=== PATIENT | female | born 1985 | race Caucasian/White ===

== ENCOUNTER → 2021-11-21 | Outpatient (CLI) | payer OTHER, SELFPAY ==
[2021-11-21 17:15] LABS: Amphetamine Urine VISTA NEGATIVE (<1000 ng/mL); Barbiturate Urine VISTA NEGATIVE (< 200 ng/mL); Benzodiazepine Urine VISTA NEGATIVE (< 200 ng/mL); Cocaine Urine VISTA NEGATIVE (< 300 ng/mL); Ecstacy Urine VISTA NEGATIVE (< 500 ng/mL); Methadone Urine VISTA NEGATIVE (< 300 ng/mL); PCP Urine VISTA NEGATIVE (< 25 ng/mL); THC Urine VISTA NEGATIVE (< 50 ng/mL); Vista UDS pH Range 7
[2021-11-25 01:06] LABS: Chlamydia By Nucleic Acid AMP Negative (Negative)
[2021-11-25 09:13] LABS: Gonococcus By Nucleic Acid AMP Negative (Negative)
== END | disposition home or self-care (01) ==
LOC: LABSPEC 16:13
PROVIDERS: Visit Provider Obstetrics & Gynecology
DX: Z34.90 Encounter for supervision of normal pregnancy, unspecified, unspecified trimester (principal)
CPT/HCPCS: 80307; 87086; 87088; 87491; 87591

== ENCOUNTER → 2021-12-06 | Outpatient (CLI) | payer OTHER, SELFPAY ==
[2021-12-06 12:35] LABS: NATERA MAILED SPECIMEN
[2021-12-06 12:40] LABS: Absolute Lymphocyte Count 1.77 X10^3/uL (0.83-4.51); Absolute Neutrophil Count 7.4 X10^3/uL (2.0-7.7); Basophil# 0.02 X10^3/uL; Basophil% 0.2 % (0-1); Eosinophil# 0.08 X10^3/uL; Eosinophils% 0.8 % (0-5); Hematocrit 38.4 % (37-47); Hemoglobin 12.9 g/dL (12.0-15.0); Lymphocyte # 1.77 X10^3/ul (0.83-4.51); Lymphocyte % 17.8 % (19-41); Mean Corp Hgb Conc 33.6 g/dL (32-36); Mean Corpuscular Hgb 30.3 pg (27.0-32.0); Mean Corpuscular Volume 90.1 fL (81-99); Mean Platelet Vol. 11.3 fl (6.2-12.0); Monocyte# 0.66 X10^3/uL; Monocyte% 6.6 % (0-10); NRBC Flagged by Analyzer 0 % (0-5); Neutrophil # 7.38 X10^3/uL (2.7-7.7); Neutrophil % 74.1 % (47-70); Platelet Count 300 K/mm3 (150-450); RBC Distribution Width SD 41.9 fl (35.1-43.9); Red Blood Count 4.26 M/mm3 (4.2-5.4)
[2021-12-06 12:55] LABS: HIV - WCH Non-Reactive (Nonreactive); Hepatitis B Surface Antigen Non-Reactive (Nonreactive); Hepatitis C Antibody Non-Reactive (Nonreactive); Rubella IgG Reactive (Nonreactive); Syphilis Antibodies Non-reactive
== END | disposition home or self-care (01) ==
LOC: PAVLAB 11:24
PROVIDERS: Referring Provider Obstetrics & Gynecology; Visit Provider Obstetrics & Gynecology
DX: Z34.90 Encounter for supervision of normal pregnancy, unspecified, unspecified trimester (principal)
CPT/HCPCS: 36415; 85025; 86703; 86762; 86780; 86803; 86850; 86900; 86901; 87340

== ENCOUNTER → 2022-01-24 | Outpatient (CLI) | payer OTHER, SELFPAY ==
[2022-01-25 12:53] LABS: CMV Acute Antibody IgM < 30.0 AU/mL (0.0-29.9); CMV Antibody IgG < 0.60 U/mL (0.00-0.59); Toxoplasma Gondii IgG < 3.0 IU/mL (0.0-7.1); Toxoplasma Gondii IgM < 3.0 AU/mL (0.0-7.9)
== END | disposition home or self-care (01) ==
LOC: PAVLAB 11:55 → LAB 12:10
PROVIDERS: Visit Provider Obstetrics & Gynecology
DX: O35.8XX0 Maternal care for other (suspected) fetal abnormality and damage, not applicable or unspecified (principal); Z3A.00 Weeks of gestation of pregnancy not specified
CPT/HCPCS: 36415; 86644; 86645; 86777; 86778

== ENCOUNTER 2022-03-21 11:34 | Outpatient (CLI) | payer OTHER, SELFPAY ==
[2022-03-21 11:56] LABS: Absolute Lymphocyte Count 1.68 X10^3/uL (0.83-4.51); Absolute Neutrophil Count 7.8 X10^3/uL (2.0-7.7); Basophil# 0.02 X10^3/uL; Basophil% 0.2 % (0-1); Eosinophil# 0.07 X10^3/uL; Eosinophils% 0.7 % (0-5); Hematocrit 30.3 % (37-47); Hemoglobin 10.4 g/dL (12.0-15.0); Lymphocyte # 1.68 X10^3/ul (0.83-4.51); Lymphocyte % 16.1 % (19-41); Mean Corp Hgb Conc 34.3 g/dL (32-36); Mean Corpuscular Volume 90.4 fL (81-99); Mean Platelet Vol. 10.9 fl (6.2-12.0); Monocyte# 0.85 X10^3/uL; Monocyte% 8.1 % (0-10); NRBC Flagged by Analyzer 0 % (0-5); Neutrophil # 7.79 X10^3/uL (2.7-7.7); Neutrophil % 74.5 % (47-70); Platelet Count 241 K/mm3 (150-450); RBC Distribution Width CV 12.4 % (11.6-14.6); RBC Distribution Width SD 40.5 fl (35.1-43.9); Red Blood Count 3.35 M/mm3 (4.2-5.4); White Blood Count 10.5 K/mm3 (4.4-11.0)
[2022-03-21 12:39] LABS: Glucose Challenge Gest 1H 50g 92 mg/dL (70-140)
== END 2022-03-21 23:59 | disposition home or self-care (01) ==
LOC: PAVLAB 11:37
PROVIDERS: Referring Provider Obstetrics & Gynecology; Visit Provider Obstetrics & Gynecology
DX: Z34.90 Encounter for supervision of normal pregnancy, unspecified, unspecified trimester (principal); Z13.1 Encounter for screening for diabetes mellitus
CPT/HCPCS: 36415; 82950; 85025

== ENCOUNTER → 2022-05-23 | Outpatient (CLI) | payer OTHER, SELFPAY ==
[2022-05-23 11:14] LABS: Absolute Lymphocyte Count 1.93 X10^3/uL (0.83-4.51); Absolute Neutrophil Count 7.6 X10^3/uL (2.0-7.7); Basophil# 0.02 X10^3/uL; Basophil% 0.2 % (0-1); Eosinophil# 0.08 X10^3/uL; Eosinophils% 0.8 % (0-5); Hematocrit 36.1 % (37-47); Lymphocyte # 1.93 X10^3/ul (0.83-4.51); Lymphocyte % 18.1 % (19-41); Mean Corp Hgb Conc 33.2 g/dL (32-36); Mean Corpuscular Hgb 30.2 pg (27.0-32.0); Mean Corpuscular Volume 90.9 fL (81-99); Mean Platelet Vol. 11.6 fl (6.2-12.0); Monocyte# 0.93 X10^3/uL; Monocyte% 8.7 % (0-10); NRBC Flagged by Analyzer 0 % (0-5); Neutrophil # 7.62 X10^3/uL (2.7-7.7); Neutrophil % 71.6 % (47-70); Platelet Count 236 K/mm3 (150-450); RBC Distribution Width CV 13.5 % (11.6-14.6); RBC Distribution Width SD 45.3 fl (35.1-43.9); Red Blood Count 3.97 M/mm3 (4.2-5.4); White Blood Count 10.6 K/mm3 (4.4-11.0)
== END | disposition home or self-care (01) ==
PROVIDERS: Referring Provider Obstetrics & Gynecology; Visit Provider Obstetrics & Gynecology
DX: O99.019 Anemia complicating pregnancy, unspecified trimester (principal)
CPT/HCPCS: 36415; 85025; 87081

== ENCOUNTER 2022-06-17 00:40 | Inpatient (IN) | payer OTHER, SELFPAY ==
[2022-06-17] VITALS (13 sets, daily range): BP systolic 95–149; BP diastolic 55–83; PULSE 54–69; RESP 16–17; TEMP 36.1–37.3; BMI 28.6
[2022-06-17 01:12] LABS: Absolute Lymphocyte Count 2.93 X10^3/uL (0.83-4.51); Absolute Neutrophil Count 6.9 X10^3/uL (2.0-7.7); Basophil# 0.02 X10^3/uL; Basophil% 0.2 % (0-1); Eosinophil# 0.08 X10^3/uL; Eosinophils% 0.7 % (0-5); Hematocrit 36.9 % (37-47); Hemoglobin 12.3 g/dL (12.0-15.0); Lymphocyte # 2.93 X10^3/ul (0.83-4.51); Lymphocyte % 26.8 % (19-41); Mean Corp Hgb Conc 33.3 g/dL (32-36); Mean Corpuscular Hgb 30.5 pg (27.0-32.0); Mean Corpuscular Volume 91.6 fL (81-99); Mean Platelet Vol. 12.9 fl (6.2-12.0); Monocyte# 1.01 X10^3/uL; Monocyte% 9.2 % (0-10); NRBC Flagged by Analyzer 0 % (0-5); Neutrophil # 6.85 X10^3/uL (2.7-7.7); Neutrophil % 62.7 % (47-70); Platelet Count 206 K/mm3 (150-450); RBC Distribution Width CV 13.4 % (11.6-14.6); RBC Distribution Width SD 45.1 fl (35.1-43.9); Red Blood Count 4.03 M/mm3 (4.2-5.4); White Blood Count 10.9 K/mm3 (4.4-11.0)
[2022-06-17] MEDS: Oxytocin 10 UNITS/ML Vial IM (01:27)
--- NOTE | 2022-06-17 01:38 | HP.PCM.OB_ITS ---
HPI - General General Date of Admission: 06/17/22 HPI Narrative BRIGID VELASQUEZ, is a 37 F who presents at 40+2 with regular contractions. Presented to the unit with cervical exam rupture of membranes with clear fluid. 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 -anemia treated with slow release iron and resolved by 3rd trimester -05/29 nl growth EFW 3167gms 51% Maternal Data Information JAZMIN Calculator Estimated Delivery Date Method Current WG Current Estimate 06/15/22 LMP (Certain) 40w 2d Other Estimates 06/15/22 Ultrasound #1 40w 2d Final JAZMIN: 06/15/22 Final JAZMIN Source: LMP PFSH PFSH Home Medications docosahexaenoic acid 200 mg capsule ( DHA) mg PO 11/21/21 [History Last Taken Unknown] Allergy/AdvReac Type Severity Reaction Status Date / Time No Known Allergies Allergy Verified 06/13/22 09:07 Social History adopted: No household members: spouse and children housing: house number of children: 1 current occupational status: employed 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 current occupational exposures/hazards: No pets and animals: Yes (2) pets and animals: dog(s) history of recent travel: Yes ([facility] last week, [place] October 23) out of state: Yes out of country: No sexually active: Yes Smoking Status: Never smoker second hand exposure: No alcohol intake: former details: social 1-2 per month substance use type: does not use well-balanced diet: about half the time caffeine: No eating out: rarely or never during the past year weight has: remained stable what type of physical activity do you participate in: walking frequency: 1-2 times per week duration: 15-30 minutes/day lexx/religious: Tenriism seatbelt use: always do you feel safe at home: Yes 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 Date Name GA/Weeks Outcome Route Bth Weight Gen Labor Lgth Anesthesia Del Locatn Provider FOB Unknown 01/08/20 John 40 live - full term 7# 10oz M veronica 12 hours none [facility] [place], [place] Dr. Ibeth Carlos Visit Details Expected Delivery Route/Plan Labor Preferences- CB/BF classes: [] labor support person: labor intervention preferences: hypno , birthing tub pain management options preferred: no epidural cut cord/dad catch: [] : plans to breast feed PP control planned: [] discussed possible routes of delivery and associated risks: [] special requests: [] Plans Covid status: vaccinated Flu vaccine: [] Tdap vaccine: [] Rhogam: [] LARC form signed: [] Problem list reviewed and updated with the most current plan of care details and appropriate orders placed. Relevant counseling for the gestational age provided. Continue routine care and follow up unless otherwise noted in visit notes/problem list details OB Flowsheet Initial Weight: Not Recorded Date -?-?-?-?-?-?-?-?-?-?-?-?- EGA Weight BP Urine Prot -?-?-?-?-?-?-?-?-?-?-?-?- Glucose FHR FuHt Pres Dilation -?-?--?-?-?-?-?-?-?-?-?-?- Effaced St Visit Note 11/21/21 -?-?-?-?-?-?-?-?-?-?-?-?- 10w 4d 132 lb 4 oz 100/60 -?-?-?-?-?-?-?-?-?-?-?-?- 178 -?-?-?-?-?-?-?-?-?-?-?-?- JV- CRL consiste nt with LMP. 12/20/21 -?-?-?-?-?-?-?-?-?-?-?-?- 14w 5d 135 lb 8 oz 100/62 Nega tive -?-?-?-?-?-?-?-?-?-?-?-?- Negative 150 -?-?-?-?-?-?-?-?-?-?-?-?- SM- no vb lof cr amping 01/24/22 -?-?-?-?-?-?-?-?-?-?-?-?- 19w 5d 146 lb 117/74 Negative -?-?-?-?-?-?-?-?-?-?-?-?- Negative 147 -?-?-?-?-?-?-?-?-?-?-?-?- JFelix- pt had her a natomy scan and results are not in yet but she is upset about finding of echogenic bowel and dilated stomach. torch titers ordered. (CMV and TOxo) 02/21/22 -?-?-?-?-?-?-?-?-?-?-?-?- 23w 5d 150 lb 6 oz 109/72 -?-?-?-?-?-?-?-?-?-?-?-?- 135 -?-?-?-?-?-?-?-?-?-?-?-?- JV- echogenic fo ci's resolved but has a 2 vessel cord. will have growth follow ups every month. no mention of NSTs or testing at this time. h 03/21/22 -?-?-?-?-?-?-?-?-?-?-?-?- 27w 5d 158 lb 8 oz 94/56 Nega tive -?-?-?-?-?-?-?-?-?-?-?-?- Negative 142 26 -?-?-?-?-?-?-?-?-?-?-?-?- JV- pt has compl aint of vaginal prolpase and a spot of blood when wiping. She has a small rectocele present. pt reassured. has scan on 03/24 for follow up. JV- pt has complaint of vagi nal prolpase and a spot of blood when wiping. She has a small rectocele present. pt reassured. has scan on 03/24 for follow up. GCT is pending. TDAP next visit. 04/07/22 -?-?-?-?-?-?-?-?-?-?-?-?- 30w 1d 161 lb 6 oz 98/64 Nega tive -?-?-?-?-?-?-?-?-?-?-?-?- Negative 143 29 -?-?-?-?-?-?-?-?-?-?-?-?- MH-No VB, LOF. G ood FM. Has Growth US scheduled. 04/24/22 -?-?-?-?-?-?-?-?-?-?-?-?- 32w 4d 163 lb 8 oz 113/74 Nega tive -?-?-?-?-?-?-?-?-?-?-?-?- Negative 156 31.5 -?-?-?-?-?-?-?-?-?-?-?-?- LC-no vb/lof/vb. good fm. growth scan for thursday. 05/09/22 -?-?-?-?-?-?-?-?-?-?-?-?- 34w 5d 168 lb 6 oz 103/71 Nega tive -?-?-?-?-?-?-?-?-?-?-?-?- Negative 132 32 -?-?-?-?-?-?-?-?-?-?-?-?- JV- normal growt h on 05/02 at 47th% and normal BUSTER. rpt in 4 weeks. 05/23/22 -?-?-?-?-?-?-?-?-?-?-?-?- 36w 5d 169 lb 4 oz 126/74 Nega tive -?-?-?-?-?-?-?-?-?-?-?-?- Negative 130 -?-?-?-?-?-?-?-?-?-?-?-?- SM- no vb lof go od fm no regular ctx 05/30/22 -?-?-?-?-?-?-?-?-?-?-?-?- 37w 5d 171 lb 2 oz 112/64 Nega tive -?-?-?-?-?-?-?-?-?-?-?-?- Negative 140 120 -?-?-?-?-?-?-?-?-?-?-?-?- JV- NST reactive . No complaints today. no contractions. 06/06/22 -?-?-?-?-?-?-?-?-?-?-?-?- 38w 5d 171 lb 104/80 -?-?-?-?-?-?-?-?-?-?-?-?- 130 -?-?-?-?-?-?-?-?-?-?-?-?- SM- NST reactive , no vb lof good fm no regular ctx 06/13/22 -?-?-?-?-?-?-?-?-?-?-?-?- 39w 5d 172 lb 4 oz 109/73 Nega tive -?-?-?-?-?-?-?-?-?-?-?-?- Negative 130 -?-?-?-?-?-?-?-?-?-?-?-?- JV- reactive nst and declines induction and pelvic exam at this time. NST FHR Rate Baby A Baseline: 125, loss of pear picker Variability:: Moderate Accelerations:: 15 x 15 Decelerations:: Early FHR Category:: Category I Uterine Activity:: q1-2 minutes ROS Cardiovascular Cardiovascular: Denies abdominal pain, chest pain, diaphoresis or dyspnea Respiratory/Chest Respiratory/Chest: Denies change in mental status, chest congestion, chest tightness, cough, shortness of breath at rest, shortness of breath with exertion, breast mass, breast pain, breast skin changes, breast swelling, change in breast shape or nipple discharge Genitourinary Genitourinary: Reports change in urinary stream Musculoskeletal Musculoskeletal: Reports none Integumentary Integumentary: Reports none Neurologic Neurologic: Reports none Psychiatric Psychiatric: Reports none Endocrine Endocrinology: Reports none Hematologic/Lymphatic Hematologic/Lymphatic: Reports none Allergic/Immunologic Allergic/Immunologic: Reports none Vital Signs Vital Signs Vital Signs: Weight Weight: 172 lb 3.2 oz Body Mass Index (BMI) 28.6 Physical Exam Const alert, oriented x3 and no apparent distress General Appearance: cooperative, comfortable and well kempt Orientation / Consciousness: awake and oriented to person Exam Limitations: no limitations HEENT normocephalic Neck full ROM Chest inspection of chest normal Resp normal respiratory effort, normal air movement and no retractions Effort and Inspection: able to speak in complete sentences and symmetric chest movement Cardio regular rate Peripheral Pulses: pulses 2+ throughout GI normal to inspection, nondistended, normoactive bowel sounds Inspection: gravid no CVA tenderness and appearance of the vagina normal External Female Exam: normal appearance of the urethra; Negative for external lesion OB / External & Speculum: external exam normal Manual OB Exam: estimated gestational size appropriate and presentation cephalic Uterus Palpation: Negative for uterus tender Extremity normal to inspection Skin no rashes or lesions noted Neuro deep tendon reflexes 2+ bilaterally and gait normal Motor Exam: strength 5/5 throughout and clonus absent Psych Activity / Motor Behavior: appropriate eye contact Speech: normal speech Labs Labs Labs: Blood Type AB POSITIVE Antibody Screen NEGATIVE Hct 36.9 % (37-47) L Hgb 12.3 g/dL (12.0-15.0) Pap Smear Negative Syphilis Total Ab Non-reactive Rubella IgG Antibody Reactive (Nonreactive) Hep Bs Antigen Non-Reactive (Nonreactive) Chlamydia DNA (SINA) Negative (Negative) Neisseria gonorrhoeae DNA (SINA) Negative (Negative) HIV 1&2 Antibody Non-Reactive (Nonreactive) Glucose 1 Hr 50 gm 92 mg/dL (70-140) Assessment & Plan (1) Two vessel umbilical cord: COMMENT: monthly growth scans and weekly nsts at 36 weeks, 05/29 nl growth EFW 3167gms 51% (2) Spontaneous onset of labor: COMMENT: Patient presents IAL at term Pain management: hypnobirthing GBS negative. Management of any complications: 2 vessel cord I have reviewed the [facility] and made any clinically relevant updates. Dr. Mcconnell updated on POC, admission and exam. co-management for 2 vessel cord
--- NOTE | 2022-06-17 01:47 | EX.PCM.OBRPT ---
Assessment & Plan (1) (spontaneous vaginal delivery): COMMENT: IAL 40+2, boy:ALBERT Brown (2) Two vessel umbilical cord: COMMENT: monthly growth scans and weekly nsts at 36 weeks, 05/29 nl growth EFW 3167gms 51% PLAN: Plan s/p PPD # 0 1. routine post delivery care 2. breast feeding- support given 3. rh positive 4. rubella immune Maternal Data Information JAZMIN Calculator Estimated Delivery Date Method Current WG Current Estimate 06/15/22 LMP (Certain) 40w 2d Other Estimates 06/15/22 Ultrasound #1 40w 2d Vaginal Delivery Maternal Presentation Maternal Presentation: Active Labor and Spontaneous Rupture of Membranes Operative Information Date of Procedure: 06/17/22 Pre-Operative Diagnosis: Post-Operative Diagnosis: Surgery / Procedure Performed: Spontaneous Vaginal Delivery Type of Anesthesia: None Estimated Blood Loss: 150 Time of Delivery: 00:13 Findings Description of Procedure: Patient began pushing and delivered the head in the OA to STEPHANIE presentation. The head was delivered atraumatically and a tight nuchal cord ?1 was identified. The anterior and posterior shoulders delivered without complication followed by the rest of the and the infant was somersaulted over nuchal cord, cord brought over head and infant was then placed on the maternal abdomen. Delayed cord clamping was employed for approximately 6minutes 30 seconds. Cord was clamped and cut and gentle traction was applied to the cord and the placenta delivered spontaneously immediately following it was noted to be intact with three-vessel cord. The perineum and vagina were inspected and noted to have no laceration. EBL was 150cc. Patient and infant tolerated delivery well. Presentation: STEPHANIE Amniotic Membrane Rupture Type: Spontaneous Time of Membrane Rupture: 54 Amniotic Fluid Description: Clear Placental Delivery Description: Spontaneous Placenta Disposition: [facility] Cord Vessel Description: 2 Vessels Cord Entanglement: Around neck x 1, tight Nuchal Cord Compression: Without compression Infant A Gender: Male (1 minute): 7 (5 minute): 9 Multi Select Codes Addendum Addendum: ATTN LORE: CNM DELIVERY
--- NOTE | 2022-06-17 01:52 | DCINST_ITS ---
Discharge Instructions Diet Discharge Diet: No restrictions Activity Discharge Activity: May Not Drive and May Shower May resume sexual activity in: 6 weeks Weight Bearing Status: Full weight bearing Dressing / Incision Call your doctor if your incision/area has: Sudden Increased Bleeding, Increased Pain/ Swelling and Foul Smelling Discharge Call your doctor if you observe: Fever of 101 or Higher, Numbness or Tingling, Change in Color, Inability to urinate, Inability to have a bowel movement, Using more than 1 pad per hour, Shortness of breath, Dizziness, Fainting spells, Chest pain, Calf discomfort and Uncontrolled pain Follow Up Care Please Follow Up With: Trish Murray CNM When: 6 weeks , please call office to make an appointment. Congratulations on the of your baby juan miguel LEIJA! Test Results: Test results from this visit will be discussed in further detail at your follow- up appointment, if applicable. Discharge Plan Admission Admit Date/Time: 06/17/22 00:40 Attending Provider: Trish Murray Primary Care Provider: Care Physician,Clair Primary Discharge Orders/Prescriptions Prescriptions: No Action DHA 200 mg capsule PO Referrals / Follow Up: Care Physician,No Primary [Primary Care Provider] -
[2022-06-17] MEDS: Lactated Ringers 1,000 ML 50 ML IV (03:29)
[2022-06-18 01:47] VITALS: BP 102/60; PULSE 70; RESP 16; TEMP 36.6
[2022-06-18 09:20] VITALS: BP 100/57; PULSE 68; RESP 16; TEMP 36.8
--- NOTE | 2022-06-18 10:09 | PCM.PN.OB ---
Subjective Subjective Patient doing well without complaints. Tolerating PO. Ambulating and voiding without difficulty. Feeding well. Denies chest pain, shortness of breath, calf pain/swelling, fevers, chills, lightheadedness. Objective Data Objective Data Vital Signs: Vital Signs Temp Pulse Resp BP O2 Del Method 98.3 F 68 16 100/57 L Room Air 06/18/22 09:20 06/18/22 09:20 06/18/22 09:20 06/18/22 09:20 06/17/22 20:10 Oxygen Delivery Method Room Air Weight: 172 lb 3.2 oz Body Mass Index (BMI) 28.6 Intake & Output: Intake and Output for Last 24 Hours 06/16/22 06/17/22 06/18/22 23:59 23:59 23:59 Output Total 850 / 850 Balance -850 / -850 Lab / Micro Data Result Diagrams: 06/17/22 00:52 Physical Exam Const alert, oriented x3 and no apparent distress HEENT normocephalic Neck full ROM Lymph Lymphatic: no lymphadenopathy noted Chest inspection of chest normal Resp normal respiratory effort, normal air movement and no retractions Cardio regular rate and regular rhythm GI GI Narrative: fundus firm at 1 below u. mild lochia. no clots Extremity normal to inspection and full ROM Skin no rashes or lesions noted Neuro oriented x3 Psych mental status grossly normal Assessment & Plan (1) (spontaneous vaginal delivery): COMMENT: IAL 40+2, boy:ALBERT Brown PLAN: s/p PPD # 1 1. routine post delivery care 2. breast feeding- support given 3. rh positive 4. rubella immune 5. d/c home today
== END 2022-06-18 12:12 | disposition home or self-care (01) | DRG 807 ==
LOC: WPOUT 00:43 → WP 00:43
PROVIDERS: Admitting Provider Registered Nurse; Visit Provider Registered Nurse
DX: O69.1XX0 Labor and delivery complicated by cord around neck, with compression, not applicable or unspecified (principal); Z37.0 Single live birth; Z3A.40 40 weeks gestation of pregnancy
CPT/HCPCS: 59025; 59050; 85025; 86850; 86870; 86900; 86901; 99221; J7120; G0378

== ENCOUNTER → 2023-10-28 | Outpatient (CLI) | payer OTHER, SELFPAY ==
[2023-11-03 11:09] LABS: HPV APTIMA, High Risk Negative (Negative)
== END | disposition home or self-care (01) ==
PROVIDERS: Referring Provider Obstetrics & Gynecology; Visit Provider Obstetrics & Gynecology
DX: Z12.4 Encounter for screening for malignant neoplasm of cervix (principal)
CPT/HCPCS: 87624; 88175; G0145

== ENCOUNTER → 2024-02-24 | Outpatient (CLI) | payer OTHER, SELFPAY ==
--- OUTSIDE RECORDS SUMMARY | 2024-02-24 09:49 | XMS RPT_ITS | CCD ---
Author Organization [facility] Inform ion Partnership [facility] Care Team Providers Care Grade Checker Name Role Phone Unavailable Primary Care Provider Tala Abdi MD Primary Care Provider NICOLETC Attending Unavailable TALA KNOX Referring Unavailable TALA KNOX Primary Care Unavailable Pcp, Clair Primary Care Provider UnavailKOBE Mcallister Attending Unavailable LINDA MAYORGA Referring Unavailabl e NO PRIMARY CARE, Primary Care Unavailable NO PRIMARY CARE, Primary Care Unavailable LINDA MAYORGA Referring Unavailabl e MAYANK ARROYO Attending Unavailable LINDA MAYORGA Referring Unavailabl MAYANK Johnson Attending Unavailable NO PRIMARY CARE, Primary Care Unavailable KOBE CABAN Attending Unavailable LINDA MAYORGA Referring Unavailabl e NO PRIMARY CARE, Primary Care Unavailable LINDA MAYORGA Referring Unavailabl LINDA Brooks Attending Unavailbraxton roque NO PRIMARY CARE, Primary Care Unavailable LINDA MAYORGA Referring Unavailabl e JULIANNA HINES Attending Unavailable NO PRIMARY CAREMD Primary Care Unavailable Jairo Romero MD Primary Care Provider JAIRO ROMERO Attending Unavailab KWABENA Grande Primary Care Unavailable JAIRO ROMERO Primary Care Unavailab JAIRO Maguire Referring Unavailab JAIRO Maguire Primary Care Unavailab JAIRO Maguire Primary Care Unavailab JAIRO Maguire Attending Unavailab JAIRO Maguire Primary Care Unavailab JAIRO Maguire Referring Unavailab le Medications Current Medications Medication Drug Class(es) Dates Sig (Normalized) Sig (Original) ciprofloxacin 3 mg/ml ophthalmic solution (1 source) Quinolone Antimicrobial Start: 08-23-2023 End: 08-30-2023 take 1-2 drop(s) into the eye(s) every two hours, then take 1-2 drop(s) into the eye(s) every four hours ciprofloxacin HCl (CILOXAN) 0.3 % ophthalmic solution Use 1-2 drops inside both lower eyelid(s) every 2 hours while awake for 2 days, then 1-2 drops every 4 hours for next 5 days. 10 mL 0 08/23/2023 08/30/2023 Active Comment on above: Use 1-2 drops inside both lower eyelid(s) every 2 hours while awake for 2 days, then 1-2 drops every 4 hours for next 5 days. fluocinolone acetonide 0.1 mg/ml / hydroquinone 40 mg/ml / tretinoin 0.5 mg/ml topical cream (1 source) Corticosteroid, Retinoid, Melanin Synthesis Inhibitor Start: 12-24-2020 End: 01-23-2021 fluocinolone-hydro q.-tretinoin (Tri-Polly) 0.01-4-0.05 % Crea Apply 1 application topically nightly For 2-3 months . 30 g 1 12/24/2020 01/23/2021 Active Completed/Discontinued Medications Medication Drug Class(es) Dates Sig (Normalized) Sig (Original) atorvastatin 40 mg oral tablet (1 source) HMG-CoA Reductase Inhibitor Start: 03-20-2023 End: 06-29-2023 take 1 tablet by mouth once daily at bedtime for hyperlipidemia atorvastatin (LIPITOR) 40 mg tablet Take 1 tablet by mouth daily at bedtime. For cholesterol. 90 tablet 0 03/20/2023 06/29/2023 Discontinued Comment on above: Take 1 tablet by adam th daily at bedtime. For cholesterol. prental multivitamin ( VITAMIN) 27 mg iron- 800 mcg tablet (4 sources) prental multivitamin ( VITAMIN) 27 mg iron- 800 mcg tablet q 24 HR. 0 Active Comment on above: q 24 HR. Problems Active Problems Problem Classification Problem Date Documented Date Episodic/Chronic Disorders of lipid metabolism (1 source) Pure hypercholesterolemia, unspecified; Translations: [Pure hypercholesterolemia] Onset: 03-20-2023 Chronic Headache; including migraine (1 source) Headache; Translations: [Headache, unspecified headache type] Episodic Inflammation; infection of eye (except that caused by tuberculosis or sexually transmitteddisease) (1 source) Conjunctivitis of right eye; Translations: [Unspecified conjunctivitis] 08-23-2023 Episodic Other and unspecified benign neoplasm (1 source) Dermal cellular nevus ; Translations: [Other benign neoplasm of skin of other parts of face] Episodic Other and unspecified benign neoplasm (1 source) Senile angioma; Translations: [Hemangioma of skin and subcutaneous tissue] Episodic Other skin disorders (3 sources) Chloasma; Translations: [Chloasma] Episodic Other upper respiratory infections (1 source) Acute upper respiratory infection; Translations: [Acute upper respiratory infection, unspecified] 08-23-2023 Episodic Viral infection (1 source) Viral disease; Translations: [Viral infection, unspecified] Episodic Past or Other Problems Problem Classification Problem Date Documented Da te Episodic/Chronic Administrative/social admission (3 sources) Patient encounter status; Translations: [Persons encountering health services in other specified circumstances] Onset: 03-13-2023 12-26-2022 Episodic Immunizations and screening for infectious disease (1 source) Encounter for immunization; Translations: [Encounter for immunization] Onset: 03-20-2023 Episodic Other skin disorders (1 source) Chloasma; Translations: [Melasma] Onset: 03-20-2023 Episodic Other skin disorders (1 source) Xerosis cutis; Translations: [Dry skin dermatitis] Onset: 03-20-2023 Episodic Results Test Name Value Interpretation Reference Range Facility [facility] 08-23-2023 CN Office Visit ([facility]) ANNIA BELLA ([id number]) 1985 F Date Time Provider Department 08/23/23 10:00 AM DULCE MARIA HOUSER WSTR During your visit today, we recorded the following information about you: Temperature Pulse Respiration Blood pressure 97.2 degrees 64/minute 18/minute 100/65 Weight Last Period 61 kg 08/23/23 Dulce Maria Houser APRN.CNP 08/23/2023 10:35 AM Signed This note was created using NoteWriter. Subjective Annia Bella is a 38 year old female. 38 year old female with no PMH presents for eye complaints. Acute onset this morning. Right eye States she woke up with discomfort +crusted +redness Denies loss of vision. Denies blurred vision ?? Feeling of FB maybe a couple times she had that feeling. Denies presently She does have URI sx of cough and congestion. Her child was recently treated for conjunctivitis. Wears corrective lens and contacts. Last eye appt Apr 2022 The history is provided by the patient. No speech and language assistant was used. Eye Problem This is a new problem. The current episode started today. The problem occurs constantly. The problem has been unchanged. Associated symptoms include congestion and coughing. Pertinent negatives include no abdominal pain, anorexia, arthralgias, change in bowel habit, chest pain, chills, diaphoresis, fatigue, fever, headaches, joint swelling, myalgias, nausea, neck pain, numbness, rash, sore throat, swollen glands, urinary symptoms, vertigo, visual change, vomiting or weakness. Nothing aggravates the symptoms. She has tried nothing for the symptoms. The treatment provided no relief. PAST MEDICAL HISTORY Diagnosis Date Absence of menstruation Amenorrhea prior to 2019 Hyperlipemia PAST SURGICAL HISTORY Procedure Laterality Date NONE ALLERGIES Patient has no known allergies. MEDICATIONS prental multivitamin ( VITAMIN) 27 mg iron- 800 mcg tablet q 24 HR. ciprofloxacin HCl (CILOXAN) 0.3 % ophthalmic solution Use 1-2 drops inside both lower eyelid(s) every 2 hours while awake for 2 days, then 1-2 drops every 4 hours for next 5 days. FAMILY HISTORY Problem Relation Age of Onset other (Gallbladder cancer) Mother 68 other (als) Father 66 Hyperlipidemia Father Colon Cancer Maternal Grandmother Diabetes Maternal Grandfather Hypertension Paternal Grandfather Diabetes Paternal Grandfather Type 2 Heart Attack Paternal Grandfather No Known Problems Son No Known Problems Son Diabetes Maternal Aunt Celiac Disease Maternal Aunt Social History Tobacco Use Smoking status: Never Smokeless tobacco: Never Vaping Use Vaping Use: Never used Substance Use Topics Alcohol use: Yes Comment: 1-2 drinks per month Drug use: Never Review of Systems Constitutional: Negative for chills, diaphoresis, fatigue and fever. HENT: Positive for congestion and rhinorrhea. Negative for ear pain, postnasal drip, sinus pressure, sinus pain and sore throat. Eyes: Positive for photophobia, pain, discharge, redness and itching. Negative for visual disturbance. Respiratory: Positive for cough. Negative for apnea, choking and chest tightness. Cardiovascular: Negative for chest pain. Gastrointestinal: Negative for abdominal pain, anorexia, change in bowel habit, nausea and vomiting. Musculoskeletal: Negative for arthralgias, joint swelling, myalgias and neck pain. Skin: Negative for color change, pallor and rash. Allergic/Immunologic : Negative for environmental allergies, food allergies and immunocompromised state. Neurological: Negative for dizziness, vertigo, facial asymmetry, weakness, light-headedness, numbness and headaches. Hematological: Negative for adenopathy. Does not bruise/bleed easily. Psychiatric/Behavior al: Negative for agitation and behavioral problems. Objective BP 100/65 Pulse 64 Temp 36.2 ?C (97.2 ?F) Resp 18 Wt 61 kg (134 lb 7.7 oz) LMP 08/23/2023 (Approximate) SpO2 100% Yes BMI 23.08 kg/m? Physical Exam Vitals and nursing note reviewed. Constitutional: General: She is not in acute distress. Appearance: Normal appearance. She is normal weight. She is not ill-appearing, toxic-appearing or diaphoretic. HENT: Head: Normocephalic and atraumatic. Right Ear: Ear canal and external ear normal. Left Ear: Ear canal and external ear normal. Nose: Rhinorrhea present. No congestion. Mouth/Throat: Mouth: Mucous membranes are moist. Pharynx: No oropharyngeal exudate or posterior oropharyngeal erythema. Eyes: General: Right eye: No discharge. Left eye: No discharge. Extraocular Movements: Extraocular movements intact. Pupils: Pupils are equal, round, and reactive to light. Comments: Vision grossly intact OD injected +marginal eyelid debris Tetracaine and Fluorescein with no uptake. NO FB noted. EOM intact Cardiovascular: Rate (more content not included)... Normal [facility] ([id number]) 1985 F Date Time Provider Department 06/29/23 JAIRO ROMERO During your visit today, we recorded the following information about you: Alice Villarreal LPN 06/29/2023 4:18 PM Signed ----- Message from Jairo Romero MD sent at 06/29/2023 2:37 PM EST ----- Cholesterol level improving on Lipitor 40 mg daily, but is still high. If she is tolerating 40 mg dosage without side effects, I would recommend increasing dosage to 80 mg daily. If agreeable, will send rx to requested pharmacy. Alice Villarreal LPN 06/29/2023 4:22 PM Signed Pt given results below. Pt reports she never started Lipitor. She is watching what she eats. She wants to continue what she is doing. BELEN Palacio Christopher B, MD 06/29/2023 4:31 PM Signed Her LDL is down below 190 with improved diet. I will remove the lipitor from her med list and would have her continue with diet as requested. Alice Villarreal LPN 06/29/2023 4:53 PM Signed Attempted to reach pt by phone without success. Mailbox is full. BELEN Palacio Michelle, LPN 06/30/2023 8:45 AM Signed Patient telephoned, no answer. Message left to call office back for update. BELEN Trejo Laurie Lynn, LPN 07/06/2023 2:05 PM Signed Detailed VM left on pt's identified voicemail of information below. Alice Villarreal LPN Allergies As of Date: 06/29/2023 (No Known Allergies) Date Reviewed: 03/20/2023 Reviewed by: Lexy Collazo LPN - Fully Assessed Reason for Visit: Results [95] Prescriptions as of 07/06/2023 - prental multivitamin ( VITAMIN) 27 mg iron- 800 mcg tablet q 24 HR. Problem List As Of Date: 06/29/2023 (None) Medications Discontinued During This Encounter Prescriptions - atorvastatin (LIPITOR) 40 mg tablet (Discontinued) Take 1 tablet by mouth daily at bedtime. For cholesterol. Encounter Status:Closed by ALICE VILLARREAL on 07/06/23 Normal [facility] Lipid 1996 panelon Cholesterol [Mass/Vol] 221 mg/dL High <200 [facility] Comment on above: Order Comment: Jacky armendariz Type: BLOOD SPECIMEN Ordering Facility: [facility] Address: [address] [place] [address] Result Comment: <200 mg/dL, Desirable 200-239 mg/dL, Borderline high >239 mg/dL, High Performed By: #### 2 4331-1 #### [facility] CLIA [id number] [address] [place] [address] [place] Cholesterol in HDL [Mass/Vol] 63 mg/dL Normal >39 [facility] Comment on above: Order Comment: Jacky armendariz Type: BLOOD SPECIMEN Ordering Facility: [facility] Address: [address] [place] [address] Result Comment: 40-5 9 mg/dL, Acceptable >59 mg/dL, High: Negative risk factor for coronary heart disease <40 mg/dL, Low: Positive risk factor for coronary heart disease Performed By: #### 2 4331-1 #### [facility] CLIA [id number] [address] [place] [address] [place] Cholesterol in LDL [Mass/Vol] 150 mg/dL High <100 [facility] Comment on above: Order Comment: Jacky armendariz Type: BLOOD SPECIMEN Ordering Facility: [facility] Address: [address] [place] [address] Result Comment: <100 mg/dL, Optimal 100-129 mg/dL, Near optimal/above optimal 130-159 mg/dL, Borderline high 160-189 mg/dL, High >189 mg/dL, Very high Secondary prevention optimal LDL Cholesterol levels are recommended to be < 70 mg/dL Performed By: #### 2 4331-1 #### [facility] CLIA [id number] [address] [place] [address] [place] Cholesterol in LDL/Cholesterol in HDL [Mass ratio] 2.38 {ratio} Normal <2.[address] [facility] Comment on above: Order Comment: Jacky armendariz Type: BLOOD SPECIMEN Ordering Facility: [facility] Address: [address] [place] [address] Result Comment: Refe rence: 1. National Cholesterol Education Program ATP III Guideline At-A-Glance Quick Desk Reference: National Heart, Lung, and Blood [place]. National Institutes of Health. 2001: NIH Publication No. 01-3305. 2. An International Atherosclerosis Society position paper: global recommendations for the management of dyslipidemia: executive summary, Atherosclerosis. 2014: 232(2):410-413. Performed By: #### 2 4331-1 #### [facility] CLIA [id number] [address] [place] [address] [place] Cholesterol in VLDL [Mass/Vol] 8 mg/dL Normal <30 [facility] Comment on above: Order Comment: Jacky armendariz Type: BLOOD SPECIMEN Ordering Facility: [facility] Address: [address] [place] [address] Performed By: #### 2 4331-1 #### [facility] CLIA [id number] [address] [place] [address] [place] Cholesterol non HDL [Mass/Vol] 158 mg/dL High <130 [facility] Comment on above: Order Comment: Jacky armendariz Type: BLOOD SPECIMEN Ordering Facility: [facility] Address: [address] [place] [address] Result Comment: <130 mg/dL, Optimal 130-159 mg/dL, Near optimal/above optimal 160-189 mg/dL, Borderline high 190-219 mg/dL, High >219 mg/dL, Very high Secondary prevention optimal non HDL Cholesterol levels are recommended to be <100 mg/dL Performed By: #### 2 4331-1 #### [facility] CLIA [id number] [address] [place] [address] [place] Cholesterol.total/C holesterol in HDL [Mass ratio] 3.51 {ratio} Normal <5.10 [facility] Comment on above: Order Comment: Speci men Type: BLOOD SPECIMEN Ordering Facility: [facility] Address: [address] [place] [address] Performed By: #### 2 4331-1 #### [facility] CLIA [id number] [address] [place] [address] [place] FASTING TIME 13 hrs Normal [facility] Comment on above: Order Comment: Speci men Type: BLOOD SPECIMEN Ordering Facility: [facility] Address: [address] [place] [address] Performed By: #### 2 4331-1 #### [facility] CLIA [id number] [address] [place] [address] [place] Triglyceride [Mass/Vol] 40 mg/dL Normal <150 [facility] Comment on above: Order Comment: Speci men Type: BLOOD SPECIMEN Ordering Facility: [facility] Address: [address] [place] [address] Result Comment: <150 mg/dL, Normal 150-199 mg/dL, Borderline high 200-499 mg/dL, High >499 mg/dL, Very high Performed By: #### 2 4331-1 #### [facility] CLIA [id number] [address] [place] [address] [place] CNOVon 03-20-2023 CNOV Office Visit ([facility]) ANNIA BELLA ([id number]) 1985 F Date Time Provider Department 03/20/23 8:00 AM JAIRO ROMERO During your visit today, we recorded the following information about you: Pulse Respiration Blood pressure Weight 64/minute 16/minute 106/66 61.2 kg Last Period 12/12/22 Jairo Romero MD 03/20/2023 7:41 PM Signed Chief Complaint Patient presents with: Physical HPI Annia Bella is a 37 year old female who presents here today for Above Complaints. Patient without complaints. Total cholesterol and LDL up from last check 2 years ago with LDL >190. States that she has not been following low cholesterol diet. Does have family history of high cholesterol with father. Last pap smear and HPV unknown, but believes was wihtin the last [address] Small for 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 with appointment in July. 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 Refusing COVID vaccine today. Past medical history, appointments, medications, allergies reviewed. Previous Medical History PAST MEDICAL HISTORY Diagnosis Date Absence of menstruation Amenorrhea prior to 2019 Hyperlipemia Previous Surgical History PAST SURGICAL HISTORY Procedure Laterality Date NONE Family History FAMILY HISTORY Problem Relation Age of Onset other (Gallbladder cancer) Mother 68 other (als) Father 66 Colon Cancer Maternal Grandmother Diabetes Maternal Grandfather Hypertension Paternal Grandfather Diabetes Paternal Grandfather Type 2 Heart Attack Paternal Grandfather No Known Problems Son No Known Problems Son Diabetes Maternal Aunt Celiac Disease Maternal Aunt Patient Allergies ALLERGIES No Known Allergies Current Medications Current Outpatient Medications on File Prior to Visit Medication Sig prental multivitamin ( VITAMIN) 27 mg iron- 800 mcg tablet q 24 HR. No current facility-administere d medications on file prior to visit. Social History Social History Tobacco Use Smoking status: Never Smokeless tobacco: Never Substance Use Topics Alcohol use: Yes Comment: 1-2 drinks per month Drug use: Never Review of Symptoms REVIEW OF SYSTEMS GENERAL: No weight loss, malaise or fevers HEENT: Negative for frequent or significant headaches, No changes in hearing or vision, no nose bleeds or other nasal problems NECK: Negative for lumps, goiter, pain and significant neck swelling RESPIRATORY: Negative for cough, hemoptysis, wheezing, COPD, dyspnea or shortness of breath CARDIOVASCULAR: Negative for chest pain, leg swelling, hypertension, CHF or palpitations GI: No nausea, vomiting, or diarrhea : No history of dysuria, frequency or incontinence 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: Negative for abnormal vaginal bleeding, abnormal vaginal discharge MUSCULOSKELETAL: Negative for joint pain or swelling, back pain or muscle pain SKIN: Positive for dry skin on knees PSYCH: Negative for sleep disturbance, mood disorder and recent psychosocial stressors HEMATOLOGY/LYMPHOLOG Y: Negative for prolonged bleeding, bruising easily or swollen nodes ENDOCRINE: Negative for cold or heat intolerance, polyuria, polydipsia and goiter NEURO: No history of headaches, syncope, paralysis, seizures or tremors EXAM: BP 106/66 Pulse 64 Resp 16 Wt 61.2 kg (135 lb) LMP 12/12/2022 SpO2 98% Yes BMI 23.17 kg/m? General Appearance: Well appearing, alert, in no acute distress, well-hydrated, well nourished.. Skin: Dry skin over knees. Possible early eczema rash. 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 Head: Normocephalic, no masses, lesions, tenderness or abnormalities. Eyes: Anicteric sclera. Pupils are equally round and reactive to light. Extraocular movements are intact. . Ears: External ears normal, canals clear. Nose/Sinuses: Nares normal, septum midline, mucosa normal, no drainage or sinus tenderness. Oropharynx: Lips, mucosa, and tongue normal, teeth and gums normal, oropharynx normal. Neck: Supple, no adenopathy; thyroid symmetric, normal size, no bruits. Lungs: Lungs clear to auscultation. No wheezing, rhonchi, rales.. Heart: RRR without murmur, gallop, or rubs. No ectopy. Abdomen: Normal abdominal exam, Abdomen soft, non-tender. Bowel sounds normal. No masses, organomegaly. Extremities: No deformities, edema, skin discoloration, clubbing or cyanosis. Good capillary refill. Peripheral Pulses: Normal. Neurologic: Gait normal. Reflexes normal and symmetric. Sensation grossly intact.. Lymph Nodes: No cervical lymphadenopathy and No supraclavicular lymphadenopathy. Health Maintenance List Hepatitis C Screening Never done HIV Screening Never done Pap Testing Never done HPV Testing Never done Influenza Vaccine(1) due on 01/02/2023 Covid-19 Vaccine(2022- season) due on 01/02/2023 DTaP,Tdap,Td Vaccine(9 - Td or Tdap) due on 04/07/2032 Hepatitis (more content not included)... Normal [facility] CBC W Auto Differential pane l (Bld)on 03-13-2023 Basophils (Bld) [#/Vol] 0.04 10*3/uL Normal <0.11 [facility] Comment on above: Order Comment: Speci men Type: BLOOD SPECIMEN Ordering Facility: [facility] Address: [address] [place] [address] Performed By: #### 5 7021-8 #### [facility] CLIA [id number] [address] [place] [address] [place] Basophils/100 WBC (Bld) 0.6 % Normal [facility] Comment on above: Order Comment: Speci men Type: BLOOD SPECIMEN Ordering Facility: [facility] Address: [address] [place] [address] Performed By: #### 5 7021-8 #### [facility] CLIA [id number] [address] [place] [address] [place] Differential cell count method Nom (Bld) Auto Normal [facility] Comment on above: Order Comment: Speci men Type: BLOOD SPECIMEN Ordering Facility: [facility] Address: [address] [place] [address] Performed By: #### 5 7021-8 #### [facility] CLIA [id number] [address] [place] [address] [place] Eosinophils (Bld) [#/Vol] 0.22 10*3/uL Normal <0.46 [facility] Comment on above: Order Comment: Speci men Type: BLOOD SPECIMEN Ordering Facility: [facility] Address: [address] [place] [address] Performed By: #### 5 7021-8 #### [facility] CLIA [id number] [address] [place] [address] [place] Eosinophils/100 WBC (Bld) 3.3 % Normal [facility] Comment on above: Order Comment: Speci men Type: BLOOD SPECIMEN Ordering Facility: [facility] Address: [address] [place] [address] Performed By: #### 5 7021-8 #### [facility] CLIA [id number] [address] [place] [address] [place] Erythrocyte distribution width (RBC) [Ratio] 12.6 % Normal 11.5-15.0 [facility] Comment on above: Order Comment: Speci men Type: BLOOD SPECIMEN Ordering Facility: [facility] Address: [address] [place] [address] Performed By: #### 5 7021-8 #### [facility] CLIA [id number] [address] [place] [address] [place] Hematocrit (Bld) [Volume fraction] 40.1 % Normal 36.0-46.0 [facility] Comment on above: Order Comment: Speci men Type: BLOOD SPECIMEN Ordering Facility: [facility] Address: [address] [place] [address] Performed By: #### 5 7021-8 #### [facility] CLIA [id number] [address] [place] [address] [place] Hemoglobin (Bld) [Mass/Vol] 13.0 g/dL Normal 11.5-15.5 [facility] Comment on above: Order Comment: Speci men Type: BLOOD SPECIMEN Ordering Facility: [facility] Address: [address] [place] [address] Performed By: #### 5 7021-8 #### [facility] CLIA [id number] [address] [place] [address] [place] Immature granulocytes (Bld) [#/Vol] 10*3/uL Normal <0.10 [facility] Comment on above: Order Comment: Speci men Type: BLOOD SPECIMEN Ordering Facility: [facility] Address: [address] [place] [address] Performed By: #### 5 7021-8 #### [facility] CLIA [id number] [address] [place] [address] [place] Immature granulocytes/100 WBC (Bld) 0.1 % Normal [facility] Comment on above: Order Comment: Speci men Type: BLOOD SPECIMEN Ordering Facility: [facility] Address: [address] [place] [address] Performed By: #### 5 7021-8 #### [facility] CLIA [id number] [address] [place] [address] [place] Lymphocytes (Bld) [#/Vol] 2.45 10*3/uL Normal 1.00-4.00 [facility] Comment on above: Order Comment: Speci men Type: BLOOD SPECIMEN Ordering Facility: [facility] Address: [address] [place] [address] Performed By: #### 5 7021-8 #### [facility] CLIA [id number] [facility] [place] [address] [place] Lymphocytes/100 WBC (Bld) 36.2 % Normal [facility] Comment on above: Order Comment: Speci men Type: BLOOD SPECIMEN Ordering Facility: [facility] Address: [address] [place] [address] Performed By: #### 5 7021-8 #### [facility] CLIA [id number] [address] [place] [address] [place] MCH (RBC) [Entitic mass] 29.1 pg Normal 26.0-34.0 [facility] Comment on above: Order Comment: Speci men Type: BLOOD SPECIMEN Ordering Facility: [facility] Address: [address] [place] [address] Performed By: #### 5 7021-8 #### [facility] CLIA [id number] [address] [place] [address] [place] MCHC (RBC) [Mass/Vol] 32.4 g/dL Normal 30.5-36.0 [facility] Comment on above: Order Comment: Speci men Type: BLOOD SPECIMEN Ordering Facility: [facility] Address: [address] [place] [address] Performed By: #### 5 7021-8 #### [facility] CLIA [id number] [address] [place] [address] [place] MCV (RBC) [Entitic vol] 89.7 fL Normal 80.0-100.0 [facility] Comment on above: Order Comment: Speci men Type: BLOOD SPECIMEN Ordering Facility: [facility] Address: [address] [place] [address] Performed By: #### 5 7021-8 #### [facility] CLIA [id number] [address] [place] [address] [place] Monocytes (Bld) [#/Vol] 0.60 10*3/uL Normal <0.87 [facility] Comment on above: Order Comment: Speci men Type: BLOOD SPECIMEN Ordering Facility: [facility] Address: [address] [place] [address] Performed By: #### 5 7021-8 #### [facility] CLIA [id number] [address] [place] [address] [place] Monocytes/100 WBC (Bld) 8.9 % Normal [facility] Comment on above: Order Comment: Speci men Type: BLOOD SPECIMEN Ordering Facility: [facility] Address: [address] [place] [address] Performed By: #### 5 7021-8 #### [facility] CLIA [id number] [address] [place] [address] [place] Neutrophils (Bld) [#/Vol] 3.44 10*3/uL Normal 1.45-7.50 [facility] Comment on above: Order Comment: Speci men Type: BLOOD SPECIMEN Ordering Facility: [facility] Address: [address] [place] [address] Performed By: #### 5 7021-8 #### [facility] CLIA [id number] [address] [place] [address] [place] Neutrophils/100 WBC (Bld) 50.9 % Normal [facility] Comment on above: Order Comment: Speci men Type: BLOOD SPECIMEN Ordering Facility: [facility] Address: [address] [place] [address] Performed By: #### 5 7021-8 #### [facility] CLIA [id number] [address] [place] [address] [place] Nucleated RBC (Bld) [#/Vol] 10*3/uL Normal <0.01 [facility] Comment on above: Order Comment: Speci men Type: BLOOD SPECIMEN Ordering Facility: [facility] Address: [address] [place] [address] Performed By: #### 5 7021-8 #### [facility] CLIA [id number] [address] [place] [address] [place] Nucleated RBC/100 WBC (Bld) [Ratio] 0.0 /100 WBC Normal [facility] Comment on above: Order Comment: Speci men Type: BLOOD SPECIMEN Ordering Facility: [facility] Address: [address] [place] [address] Performed By: #### 5 7021-8 #### [facility] CLIA [id number] [address] [place] [address] [place] Platelet mean volume (Bld) [Entitic vol] 11.4 fL Normal 9.0-12.7 [facility] Comment on above: Order Comment: Speci men Type: BLOOD SPECIMEN Ordering Facility: [facility] Address: [address] [place] [address] Performed By: #### 5 7021-8 #### [facility] CLIA [id number] [address] [place] [address] [place] Platelets (Bld) [#/Vol] 293 10*3/uL Normal 150-400 [facility] Comment on above: Order Comment: Speci men Type: BLOOD SPECIMEN Ordering Facility: [facility] Address: [address] [place] [address] Performed By: #### 5 7021-8 #### [facility] CLIA [id number] [address] [place] [address] [place] RBC (Bld) [#/Vol] 4.47 10*6/uL Normal 3.90-5.20 [facility] Comment on above: Order Comment: Speci men Type: BLOOD SPECIMEN Ordering Facility: [facility] Address: [address] [place] [address] Performed By: #### 5 7021-8 #### [facility] CLIA [id number] [facility] [place] [address] [place] WBC (Bld) [#/Vol] 6.76 10*3/uL Normal 3.70-11.00 [facility] Comment on above: Order Comment: Speci men Type: BLOOD SPECIMEN Ordering Facility: [facility] Address: [address] [place] [address] Performed By: #### 5 7021-8 #### [facility] CLIA [id number] [facility] [place] [address] [place] Comprehensive metabolic 2000 panelon 03-13-2023 Albumin [Mass/Vol] 4.7 g/dL Normal 3.9-4.9 [facility] Comment on above: Order Comment: Speci men Type: BLOOD SPECIMEN Ordering Facility: [facility] Address: [address] [place] [address] Performed By: #### 2 4331-1, 07172-5 #### [facility] CLIA [id number] [address] [place] [address] [place] ALP [Catalytic activity/Vol] 72 U/L Normal 34-123 [facility] Comment on above: Order Comment: Speci men Type: BLOOD SPECIMEN Ordering Facility: [facility] Address: [address] [place] [id number] Performed By: #### 2 4331-1, 62842-2 #### [facility] CLIA [id number] [address] [place] [address] [place] ALT [Catalytic activity/Vol] 16 U/L Normal 7-38 [facility] Comment on above: Order Comment: Speci men Type: BLOOD SPECIMEN Ordering Facility: [facility] Address: [address] [place] [address] Performed By: #### 2 4331-1, 19574-8 #### [facility] CLIA [id number] [address] [place] [address] [place] Anion gap [Moles/Vol] 12 mmol/L Normal 9-18 [facility] Comment on above: Order Comment: Speci men Type: BLOOD SPECIMEN Ordering Facility: [facility] Address: [address] [place] [address] Performed By: #### 2 4331-1, 37447-7 #### [facility] CLIA [id number] [address] [place] [address] [place] AST [Catalytic activity/Vol] 20 U/L Normal 13-35 [facility] Comment on above: Order Comment: Speci men Type: BLOOD SPECIMEN Ordering Facility: [facility] Address: [address] [place] [address] Performed By: #### 2 4331-1, 35832-8 #### [facility] CLIA [id number] [address] [place] [address] [place] Bilirubin [Mass/Vol] 0.7 mg/dL Normal 0.2-1.3 [facility] Comment on above: Order Comment: Speci men Type: BLOOD SPECIMEN Ordering Facility: [facility] Address: [address] [place] [address] Performed By: #### 2 4331-1, 58864-9 #### [facility] CLIA [id number] [address] [place] [address] [place] Calcium [Mass/Vol] 9.6 mg/dL Normal 8.5-10.2 [facility] Comment on above: Order Comment: Speci men Type: BLOOD SPECIMEN Ordering Facility: [facility] Address: [address] [place] [address] Performed By: #### 2 4331-1, 13310-1 #### [facility] CLIA [id number] [address] [place] [address] [place] Chloride [Moles/Vol] 102 mmol/L Normal 97-105 [facility] Comment on above: Order Comment: Speci men Type: BLOOD SPECIMEN Ordering Facility: [facility] Address: [address] [place] [address] Performed By: #### 2 4331-1, 69821-0 #### [facility] CLIA [id number] [address] [place] [address] [place] CO2 [Moles/Vol] 25 mmol/L Normal 22-30 [facility] Comment on above: Order Comment: Speci men Type: BLOOD SPECIMEN Ordering Facility: [facility] Address: [address] [place] [address] Performed By: #### 2 4331-1, 55315-7 #### [facility] CLIA [id number] [address] [place] [address] [place] Creatinine [Mass/Vol] 0.72 mg/dL Normal 0.58-0.96 [facility] Comment on above: Order Comment: Speci men Type: BLOOD SPECIMEN Ordering Facility: [facility] Address: [address] [place] [address] Performed By: #### 2 4331-1, 78186-3 #### [facility] CLIA [id number] [address] [place] [address] [place] Creatinine and Glomerular filtration rate.predicted panel (S/P/Bld) 111 mL/min/1.73m??? Normal >=60 [facility] Comment on above: Order Comment: Jacky armendariz Type: BLOOD SPECIMEN Ordering Facility: [facility] Address: [address] [place] [address] Result Comment: Vanessa mated Glomerular Filtration Rate (eGFR) is calculated using the 2020 CKD-EPI creatinine equation. This equation utilizes serum creatinine, sex, and age as parameters. The creatinine assay has traceable calibration to isotope dilution-mass spectrometry. Refer to KDIGO guidelines for clinical interpretation. In patients with unstable renal function, e.g. those with acute kidney injury, the eGFR may not accurately reflect actual GFR. Performed By: #### 2 4331-1, 08971-3 #### [facility] CLIA [id number] [address] [place] [address] [place] Glucose [Mass/Vol] 80 mg/dL Normal 74-99 [facility] Comment on above: Order Comment: Jacky armendariz Type: BLOOD SPECIMEN Ordering Facility: [facility] Address: [address] [place] [address] Result Comment: The [place] Diabetes Association (ADA) provides guidance for cutoff values for fasting glucose and random glucose. The ADA defines fasting as no caloric intake for at least 8 hours. Fasting plasma glucose results between 100 to 125 mg/dL indicate increased risk for diabetes (prediabetes). Fasting plasma glucose results greater than or equal to 126 mg/dL meet the criteria for diagnosis of diabetes. In the absence of unequivocal hyperglycemia, results should be confirmed by repeat testing. In a patient with classic symptoms of hyperglycemia or hyperglycemic crisis, random plasma glucose results greater than or equal to 200 mg/dL meet the criteria for diagnosis of diabetes. Reference: Standards of Medical Care in Diabetes 2016, [place] [employer]. Diabetes Care. 2016.39(Suppl 1). Performed By: #### 2 4331-1, 20440-4 #### [facility] CLIA [id number] [address] [place] [address] [place] Potassium [Moles/Vol] 4.3 mmol/L Normal 3.7-5.1 [facility] Comment on above: Order Comment: Speci men Type: BLOOD SPECIMEN Ordering Facility: [facility] Address: [address] [place] [address] Performed By: #### 2 4331-1, #### [facility] CLIA [id number] [address] [place] [address] [place] Protein [Mass/Vol] 7.5 g/dL Normal 6.3-8.0 [facility] Comment on above: Order Comment: Speci men Type: BLOOD SPECIMEN Ordering Facility: [facility] Address: [address] [place] [address] Performed By: #### 2 4331-1, #### [facility] CLIA [id number] [address] [place] [address] [place] Sodium [Moles/Vol] 139 mmol/L Normal 136-144 [facility] Comment on above: Order Comment: Speci men Type: BLOOD SPECIMEN Ordering Facility: [facility] Address: [address] [place] [address] Performed By: #### 2 4331-1, #### [facility] CLIA [id number] [address] [place] [address] [place] Urea nitrogen [Mass/Vol] 13 mg/dL Normal 7-21 [facility] Comment on above: Order Comment: Speci men Type: BLOOD SPECIMEN Ordering Facility: [facility] Address: [address] [place] [address] Performed By: #### 2 4331-1, #### [facility] CLIA [id number] [address] [place] [address] [place] Lipid 1996 panelon 3 Cholesterol [Mass/Vol] 279 mg/dL High <200 [facility] Comment on above: Order Comment: Speci men Type: BLOOD SPECIMEN Ordering Facility: [facility] Address: [address] [place] [address] Result Comment: <200 mg/dL, Desirable 200-239 mg/dL, Borderline high >239 mg/dL, High Performed By: #### 2 4331-1, 84682-1 #### [facility] CLIA [id number] [address] [facility] Cholesterol in HDL [Mass/Vol] 73 mg/dL Normal >39 [facility] Comment on above: Order Comment: Jacky armendariz Type: BLOOD SPECIMEN Ordering Facility: [facility] Address: [address] [place] [address] Result Comment: 40-5 9 mg/dL, Acceptable >59 mg/dL, High: Negative risk factor for coronary heart disease <40 mg/dL, Low: Positive risk factor for coronary heart disease Performed By: #### 2 4331-1, #### [facility] CLIA [id number] [address] [place] Cholesterol in LDL [Mass/Vol] 197 mg/dL High <100 [facility] Comment on above: Order Comment: Jacky armendariz Type: BLOOD SPECIMEN Ordering Facility: [facility] Address: [address] [place] [address] Result Comment: <100 mg/dL, Optimal 100-129 mg/dL, Near optimal/above optimal 130-159 mg/dL, Borderline high 160-189 mg/dL, High >189 mg/dL, Very high Secondary prevention optimal LDL Cholesterol levels are recommended to be < 70 mg/dL Performed By: #### 2 4331-1, 60058-6 #### [facility] CLIA [id number] [address] [place] Cholesterol in LDL/Cholesterol in HDL [Mass ratio] 2.70 {ratio} High <2.[address] [facility] Comment on above: Order Comment: Jacky armendariz Type: BLOOD SPECIMEN Ordering Facility: [facility] Address: [address] [place] [address] Result Comment: Refe rence: 1. National Cholesterol Education Program ATP III Guideline At-A-Glance Quick Desk Reference: National Heart, Lung, and Blood [place]. National Institutes of Health. 2001: NIH Publication No. 01-3305. 2. An International Atherosclerosis Society position paper: global recommendations for the management of dyslipidemia: executive summary, Atherosclerosis. 2014: 232(2):410-413. Performed By: #### 2 4331-1, 48914-9 #### [facility] CLIA [id number] [address] [place] [id number] [place] Cholesterol in VLDL [Mass/Vol] 9 mg/dL Normal <30 [facility] Comment on above: Order Comment: Jacky armendariz Type: BLOOD SPECIMEN Ordering Facility: [facility] Address: [address] [place] [address] Performed By: #### 2 433-1, #### [facility] CLIA [id number] [address] [place] [address] [place] Cholesterol non HDL [Mass/Vol] 206 mg/dL High <130 [facility] Comment on above: Order Comment: Jacky armendariz Type: BLOOD SPECIMEN Ordering Facility: [facility] Address: [address] [place] [address] Result Comment: <130 mg/dL, Optimal 130-159 mg/dL, Near optimal/above optimal 160-189 mg/dL, Borderline high 190-219 mg/dL, High >219 mg/dL, Very high Secondary prevention optimal non HDL Cholesterol levels are recommended to be <100 mg/dL Performed By: #### 2 4331-1, #### [facility] CLIA [id number] [address] [place] [address] [place] Cholesterol.total/C holesterol in HDL [Mass ratio] 3.82 {ratio} Normal <5.10 [facility] Comment on above: Order Comment: Jacky armendariz Type: BLOOD SPECIMEN Ordering Facility: [facility] Address: [address] [place] [address] Performed By: #### 2 4331-1, #### [facility] CLIA [id number] [address] [place] [id number] [place] FASTING TIME 14 hrs Normal [facility] Comment on above: Order Comment: Speci men Type: BLOOD SPECIMEN Ordering Facility: [facility] Address: [address] [place] [address] Performed By: #### 2 4331-1, 78850-2 #### [facility] CLIA [id number] [address] [place] Triglyceride [Mass/Vol] 43 mg/dL Normal <150 [facility] Comment on above: Order Comment: Speci men Type: BLOOD SPECIMEN Ordering Facility: [facility] Address: [address] [place] [address] Result Comment: <150 mg/dL, Normal 150-199 mg/dL, Borderline high 200-499 mg/dL, High >499 mg/dL, Very high Performed By: #### 2 4331-1, 84343-2 #### [facility] CLIA [id number] [address] [place] CNOVon 12-26-2022 CNOV Office Visit (FAMPWS) ANNIA BELLA ([id number]) 1985 F Date Time Provider Department 12/26/22 8:40 AM JAIRO ROMERO FAMPWS During your visit today, we recorded the following information about you: Pulse Respiration Blood pressure Weight 58/minute 16/minute 90/60 62.1 kg Height 1.626 m Jairo Romero MD 12/26/2022 10:45 AM Signed Chief Complaint Patient presents with: Establish Care: Wellness visit paperwork HPI Annia Dorman Shayne is a 37 year old female who presents here today for Above Complaints.. Previous PCP Dr. Kwabena Robles with last OV 03/2022 for annual wellness exam. Discussed it has been less than 11 months since her last physical and insurance may not cover another so soon. Patient wanting to just establish today and return for annual physical in March. Complaining of skin splotches on her forehead and cheeks which started during her last year and have worsened over the summer. Did have some burning and dry skin over the winter which improved with OTC moisturizer BID. No other rashes otherwise. No change recently. PHQ-2 / Depression screen He in the past two weeks denies having felt down, depressed, hopeless or with little interest or pleasure in doing things. Past medical history, appointments, medications, allergies reviewed. Previous Medical History PAST MEDICAL HISTORY Diagnosis Date Absence of menstruation Amenorrhea prior to 2019 Previous Surgical History PAST SURGICAL HISTORY Procedure Laterality Date NONE Family History FAMILY HISTORY Problem Relation Age of Onset other (Gallbladder cancer) Mother other (als) Father Cancer Maternal Grandmother Hypertension Paternal Grandfather Diabetes Paternal Grandfather Type 2 Patient Allergies ALLERGIES No Known Allergies Current Medications Current Outpatient Medications on File Prior to Visit Medication Sig prental multivitamin ( VITAMIN) 27 mg iron- 800 mcg tablet q 24 HR. No current facility-administere d medications on file prior to visit. Social History Social History Tobacco Use Smoking status: Never Smokeless tobacco: Never Substance Use Topics Alcohol use: No Drug use: No Review of Symptoms REVIEW OF SYSTEMS GENERAL: No weight loss, malaise or fevers RESPIRATORY: Negative for cough, hemoptysis, wheezing, COPD, dyspnea or shortness of breath CARDIOVASCULAR: Negative for chest pain, leg swelling, hypertension, CHF or palpitations GI: No nausea, vomiting, or diarrhea SKIN: See HPI EXAM: BP 90/60 Pulse (!) 58 Resp 16 Ht 162.6 cm (5' 4 ) Wt 62.1 kg (137 lb) LMP (LMP Unknown) SpO2 99% Yes BMI 23.52 kg/m? General Appearance: Well appearing, alert, in no acute distress, well-hydrated, well nourished. Skin: Melasma on forehead and cheeks bilaterally. Lungs: Lungs clear to auscultation. No wheezing, rhonchi, rales.. Heart: RRR without murmur, gallop, or rubs. No ectopy. Extremities: No deformities, edema, skin discoloration, clubbing or cyanosis. Good capillary refill. Health Maintenance List HEPATITIS C SCREENING Never done HIV SCREENING Never done PAP TESTING Never done HPV TESTING Never done COVID-19 VACCINE(3 - Booster for Roxana series) due on 05/16/2021 DEPRESSION ASSESSMENT Never done INFLUENZA(1) due on 01/02/2023 DTAP,TDAP,TD(8 - Td or Tdap) due on 11/09/2029 HEPATITIS B Completed HPV VACCINE Aged Out ASSESSMENT/PLAN: 1. Melasma - ICD9: 709.09, ICD10: L81.1 (primary diagnosis) Discussed 2/2 recent and usually resolves with the first year after . Patient not wanting referral for chemical treatment or phototherapy at this time. Will call if not improving as expected. Information given for home. 2. Encounter to establish care - ICD9: V65.8, ICD10: Z76.89 History updated today. Will obtain labs prior to physical in March. - CBC + DIFF - COMP METABOLIC PANEL - LIPID PANEL BASIC 3. Depression screening - ICD9: V79.0, ICD10: Z13.31 - DEPRESSION SCREENING/ASSESSMENT I spent a total of 30 minutes on the date of the service which included preparing to see the patient, [id number] patient care, completing clinical documentation, obtaining and/or reviewing separately obtained history, performing a medically appropriate examination, counseling and educating the patient/family/careg iver, and ordering medications, tests, or procedures. Jairo Romero MD Allergies As of Date: 12/26/2022 (No Known Allergies) Date Reviewed: 12/26/2022 Reviewed by: Jairo Romero MD - Fully Assessed Reason for Visit: Establish Care [42] Cmt: Wellness visit paperwork Primary Visit Diagnosis:Melasma [L81.1] Other Visit Diagnoses:Encounter to establish care [Z76.89] Depression screening [Z13.31] Order(s):DEPRESSION SCREENING/ASSESSMENT [[id number]] Order (more content not included)... Normal [facility] Progress Noteon 02-20-2022 [employer] Authentication Interface Message Text 02/20/2022: Annia presents with her for follow up scan regarding previously noted enlarged stomach and echogenic bowel. Neither is seen today, but SUA was noted. Ultrasound Findings: 1. Single, living IUP at 23w 4d by clinical JAZMIN. 2. There is appropriate interval growth: EFW is 564 g at 35%. 3. Amniotic fluid volume appeared normal. 4. Placenta is normal without evidence of previa. 5. Visualized anatomy appears normal, with limitations as noted above. Stomach appears normal as does bowel. A 2 VC is noted. A normal umbilical cord contains one vein (which carries oxygen and nutrients from the mother to the baby) and two arteries (which move the waste back to the mother, to be processed and disposed of by her kidneys). Sometimes there are only 2 vessels (one vein and one artery). A two vessel cord is also known as a single umbilical artery because one of the arteries is missing. Incidence is about 1 out of every 100 pregnancies. The majority have a normal course and delivery, especially if an isolated finding. The two vessel cord is associated with multiple gestations, ancestry, female gender, mothers over 40 years of age, and diabetes. However, this can be seen in any . Studies show there can be an increased risk for other abnormalities including congenital heart defect. In these cases, there is an increased chance for aneuploidy. It can also be associated with growth restriction in ~1%. RECOMMENDATIONS: Repeat growth US and follow up if FGR occurs. Normal OB care No specific follow up after delivery is necessary. The above recommendations are not a substitution for clinical judgment. These recommendations may need to be adjusted as the progresses and the clinical situation transitions. Precautions and warnings reviewed with the patient. The patient was asked to present to OB triage or call your physician with decreased movement, vaginal bleeding, leakage of fluid, regular contraction activity, severe headache, visual disturbance, right upper quadrant pain, epigastric pain, or any other questions or concerns. The patient verbalized her understanding of the above discussion and had her questions addressed to her satisfaction. The patient was asked to call with any questions or concerns. This note or partial portions of this note may have been created using a copy forward or copy paste feature, but these portions have been verified and re-edited for accuracy and any portions not in need of editing or reviews are not being used to generate any component necessary for billing purposes. Elements necessary for proper CPT code selection are based only on elements of the visit that are truly unique to this visit. I spent 10 minutes in patient care management and consultation. 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 Linda Mayorga requests that Annia be evaluated due to AMA, dilated stomach, and echogenic bowel. HPI: Annia is a 36 y.o. at 19w5d gestation who presents for evaluation of AMA, dilated stomach, and echogenic katie. Annia denies nausea, vomiting, vaginal bleeding, vaginal discharge, and/or cramping. OB History Para Term AB Living 2 1 1 0 0 1 SAB IAB Ectopic Multiple Live Births 0 0 0 0 1 # Outcome Date GA Lbr Jesus/2nd Weight Sex Delivery Anes PTL Lv 2 Current 1 Term 01/08/20 40w3d M Vag-Spont None JOSE History reviewed. No pertinent past medical history. History reviewed. No pertinent surgical history. No Known Allergies Social History Socioeconomic History Marital status: Spouse name: None Number of children: None Years of education: None Highest education level: None Tobacco Use Smoking status: Never Smokeless tobacco: Never Substance and Sexual Activity Alcohol use: Not Currently Drug use: Never Infections Live with someone with or exposed to TB History of STI's Rash or viral illness since last menstruation 2nd STI GBS 3rd STI Hx of Chicken Pox Other infections Partner has hx of genital herpes Genetics Age is > than 35y as of estimated date Yes Thalassemia No Neural Tube Defect No Congenital Heart Defect No Down Syndrome No Khang-Sachs No Evan Disease No Sickle Cell Disease or Trait No Hemophilia, Thrombophilia No Muscular Dystrophy No Cystic Fibrosis No Mansfield's Chorea No Intellectual Disability/Autism No Metabolic Disorder No Recurrent Loss, or a Stillbirth No Inherited Genetic or Chromosomal Disorder No Illicit; Rec.drugs; Alcohol since last menses No History reviewed. No pertinent family history. Outpatient Encounter Medications as of 01/23/2022 Medication Sig Dispense Refill Ezxmxshm-Wnt-Ei-FA (, W/IRON & FA,) 27-0.8 MG TABS every 24 hours No facility-administere d encounter medications on file as of 01/23/2022. Review of Systems Constitutional: Negative. HENT: Negative. Eyes: Negative. Respiratory: Negative. Cardiovascular: Negative. Gastrointestinal: Negative. Genitourinary: Negative. Musculoskeletal: Negative. Skin: Negative. Neurological: Negative. Endo/Heme/Allergies: Negative. Psychiatric/Behavior al: Negative. PHYSICAL EXAM: BP 103/63 Ht 165.1 cm Wt 65 kg (143 lb 3.2 oz) LMP 09/08/2021 BMI 23.83 kg/m Constitutional: General: She is active. HENT: Head: Atraumatic. Eyes: Extraocular Movements: EOM normal. Conjunctiva/sclera: Conjunctivae normal. Pulmonary: Effort: Pulmonary effort is normal. Abdominal: Comments: gravid uterus Musculoskeletal: Normal range of motion. Neurological: Mental Status: She is alert. X 3. Laboratory Test Results: No results found for any previous visit. Ultrasound Results: - Please see Ultrasound test for full details. Assessment/Plan: Annia Bella is a 36 y.o. at 19w5d with: Active Non-Hospital Problems Diagnosis Date Noted Echogenic focus of bowel, , affecting care of mother, antepartum 01/24/2022 Echogenic bowel is noted. The rest of the anatomic survey was adequately visualized and appeared normal. Amniotic fluid appeared normal. The differential diagnosis includes 1. A normal variant 2. swallowing of blood 3. Aaneuploidy 4. Cystic fibrosis 5. CMV 6. Toxoplasmosis, 7. Future FGR and/or 8. bowel atresia or GI congenital anomaly. Recommendations: 1. NIPT is low risk. 2. Infectious titers (CMV and toxoplasmosis) 3. Confirm negative CF testing. 4. US after 4 weeks to reevaluate the bowel. Supervision of elderly multigravida (>=35 years old at time of delivery), second trimester 01/24/2022 For a woman who will be 37 year old at the time of delivery: The risk of trisomy 21 (Down syndrome) is 1:236 The risk of trisomy 18 (Edward syndrome) is 1:921 The risk for any chromosomal abnormality is 1:104 Discussion regarding genetic screening and testing: The role of serums screening was discussed including multiple marker screening and cell free DNA testing (NIPT). The detection rates and false positive rates were discussed. The role of invasive genetic testing was explained. I informed her that invasive testing if the gold standard with the highest detection rates. Invasive testing offer karyotype, micro array studies, and detection of micro deletions.Invasive testing includes CVS (11 to 13 weeks), genetic amniocentesis (after 16 weeks) and cordocentesis. The increased risk for loss, PPROM, infection, and/or injury have been discussed. We discussed the role of expanded genetic screening has been perform (more content not included)... Normal [facility] UA DIP, URINE (POC)on 2021 BILIRUBIN UA (POCT) Negative Negative [facility] CLARITY UA (POCT) Clear [facility] COLOR UA (POCT) Yellow [facility] GLUCOSE UA (POCT) Negative Negative mg/dL [facility] HEMOGLOBIN/BLOOD UA (POCT) Negative Negative [facility] KETONE UA (POCT) Negative Negative mg/dL [facility] [place] LEUKOCYTES UA (POCT) Negative Negative [facility] NITRITE UA (POCT) Negative Negative [facility] PH UA (POCT) 6.5 4.5 - 8.0 [facility] inic Protein Ql (U) Negative Negative mg/dL [facility] SPECIFIC GRAVITY UA (POCT) <=1.005 Abnormal 1.005 - 1.030 [facility] UROBILINOGEN UA (POCT) 0.2 E.U./dL Normal E.U./dL [facility] CBC with differentialon 10-03 BASO # 0.1 K CUMM Normal 0.0-0.2 [facility] Comment on above: Order Comment: Items in this order include: Comprehensive Metabolic Panel, Lipid Panel, Vit D 25 [place] (Total), CBC with differential, , Testing Performed By: [facility] [address] [place] [address]. [place] [address] Dr. Tc Jhaveri, Tire Maintenance Technician Performed By: #### C 215, C3763, C47, C8 #### [facility] [facility] [address] [place] [address] Basophils/100 WBC (Bld) 0.6 % Normal 0.0-3.0 [facility] Comment on above: Order Comment: Items in this order include: Comprehensive Metabolic Panel, Lipid Panel, Vit D 25 [place] (Total), CBC with differential, , Testing Performed By: [facility] [address] [place] [address]. [place] [address] Dr. Tc Jhaveri, Tire Maintenance Technician Performed By: #### C 215, [id number], C47, C8 #### [facility] [address] [place] [address] EOS # 0.1 K CUMM Normal 0.0-0.4 [facility] Comment on above: Order Comment: Items in this order include: Comprehensive Metabolic Panel, Lipid Panel, Vit D 25 [place] (Total), CBC with differential, , Testing Performed By: [facility] [address] [place] [address]. [place] [address] Dr. Tc Jhaveri, Tire Maintenance Technician Performed By: #### C 215, [id number], C47, C8 #### [facility] [address] [place] [address] [address] [place] [address] Eosinophils/100 WBC (Bld) 0.9 % Normal 0.0-7.0 [facility] Comment on above: Order Comment: Items in this order include: Comprehensive Metabolic Panel, Lipid Panel, Vit D 25 [place] (Total), CBC with differential, , Testing Performed By: [facility] [address] [place] [address]. [place] [address] Dr. Tc Jhaveri, Tire Maintenance Technician Performed By: #### C 215, C3763, C47, C8 #### [facility] [address] [place] [address] [address] [place] [address] Erythrocyte distribution width (RBC) [Ratio] 13.1 % Normal 11.5-15.5 [facility] Comment on above: Order Comment: Items in this order include: Comprehensive Metabolic Panel, Lipid Panel, Vit D 25 [place] (Total), CBC with differential, , Testing Performed By: [facility] [address] [place] [address]. [place] [address] Dr. Tc Jhaveri, Tire Maintenance Technician Performed By: #### C 215, [id number], C47, C8 #### [facility] [address] [place] [address] [address] [place] [address] Hematocrit (Bld) [Volume fraction] 39.5 % Normal 37.0-47.0 [facility] Comment on above: Order Comment: Items in this order include: Comprehensive Metabolic Panel, Lipid Panel, Vit D 25 [place] (Total), CBC with differential, , Testing Performed By: [facility] [address] [place] [address]. [place] [address] Dr. Tc Jhaveri, Tire Maintenance Technician Performed By: #### C 215, C3763, C47, C8 #### [facility] [address] [place] [address] [address] [place] [address] Hemoglobin (Bld) [Mass/Vol] 12.6 g/dL Normal 11.5-15.5 [facility] Comment on above: Order Comment: Items in this order include: Comprehensive Metabolic Panel, Lipid Panel, Vit D 25 [place] (Total), CBC with differential, , Testing Performed By: [facility] [address] [place] [address]. [place] [address] Dr. Tc Jhaveri, Tire Maintenance Technician Performed By: #### C 215, C3763, C47, C8 #### [facility] [address] [place] [address] [address] [place] [address] ImmGrn # 0.0 K CUMM Normal 0.0-0.3 [facility] Comment on above: Order Comment: Items in this order include: Comprehensive Metabolic Panel, Lipid Panel, Vit D 25 [place] (Total), CBC with differential, , Testing Performed By: [facility] [address] [place] [address]. [place] [address] Dr. Tc Jhaveri, Tire Maintenance Technician Performed By: #### C 215, C3763, C47, C8 #### [facility] [address] [place] [address] [address] [place] [address] ImmGrn % 0.3 % Normal 0.0-3.0 [facility] Comment on above: Order Comment: Items in this order include: Comprehensive Metabolic Panel, Lipid Panel, Vit D 25 [place] (Total), CBC with differential, , Testing Performed By: [facility] [address] [place] [address]. [place] [address] Dr. Tc Jhaveri, Tire Maintenance Technician Performed By: #### C 215, [id number], C47, C8 #### [facility] [address] [place] [address] LYMPH # 2.0 K CUMM Normal 0.7-4.5 [facility] Comment on above: Order Comment: Items in this order include: Comprehensive Metabolic Panel, Lipid Panel, Vit D 25 [place] (Total), CBC with differential, , Testing Performed By: [facility] [address] [place] [address]. [place] [address] Dr. Tc Jhaveri, Tire Maintenance Technician Performed By: #### C 215, [id number], C47, C8 #### [facility] [address] [place] [address] [address] [place] [address] Lymphocytes/100 WBC (Bld) 25.7 % Normal 14.0-46.0 [facility] Comment on above: Order Comment: Items in this order include: Comprehensive Metabolic Panel, Lipid Panel, Vit D 25 [place] (Total), CBC with differential, , Testing Performed By: [facility] [address] [place] [address]. [place] [address] Dr. Tc Jhaveri, Tire Maintenance Technician Performed By: #### C 215, [id number], C47, C8 #### [facility] [address] [place] [address] [address] [place] [address] MCH (RBC) [Entitic mass] 29.3 pg Normal 27.0-31.0 [facility] Comment on above: Order Comment: Items in this order include: Comprehensive Metabolic Panel, Lipid Panel, Vit D 25 [place] (Total), CBC with differential, , Testing Performed By: [facility] [address] [place] [address]. [place] [address] Dr. Tc Jhaveri, Tire Maintenance Technician Performed By: #### C 215, [id number], C47, C8 #### [facility] [address] [place] [address] [address] [place] [address] MCHC (RBC) [Mass/Vol] 31.9 g/dL Low 32.0-36.0 [facility] Comment on above: Order Comment: Items in this order include: Comprehensive Metabolic Panel, Lipid Panel, Vit D 25 [place] (Total), CBC with differential, , Testing Performed By: [facility] [address] [place] [address] Dr. Tc Jhaveri, Tire Maintenance Technician Performed By: #### C 215, C3763, C47, C8 #### [facility] [address] [place] [address] [address] [place] [address] MCV (RBC) [Entitic vol] 91.9 fL Normal 78.0-100.0 [facility] Comment on above: Order Comment: Items in this order include: Comprehensive Metabolic Panel, Lipid Panel, Vit D 25 [place] (Total), CBC with differential, , Testing Performed By: [facility] [address] [place] [address] Dr. Tc Jhaveri, Tire Maintenance Technician Performed By: #### C 215, C3763, C47, C8 #### [facility] [address] [place] [address] [address] [place] [address] MONO # 0.6 K CUMM Normal 0.1-1.0 [facility] Comment on above: Order Comment: Items in this order include: Comprehensive Metabolic Panel, Lipid Panel, Vit D 25 [place] (Total), CBC with differential, , Testing Performed By: [facility] [address] [place] [address] [address] [address] Tc Jhaveri, Tire Maintenance Technician Performed By: #### C 215, C3763, C47, C8 #### [facility] [address] [place] [address] [address] [place] [address] Monocytes/100 WBC (Bld) 7.7 % Normal 4.0-13.0 [facility] Comment on above: Order Comment: Items in this order include: Comprehensive Metabolic Panel, Lipid Panel, Vit D 25 [place] (Total), CBC with differential, , Testing Performed By: [facility] [address] [place] [address] [address] Tc Jhaveri, Tire Maintenance Technician Performed By: #### C 215, C3763, C47, C8 #### [facility] [address] [facility] [place] [address] TOMI # 5.0 K CUMM Normal 1.8-7.8 [facility] Comment on above: Order Comment: Items in this order include: Comprehensive Metabolic Panel, Lipid Panel, Vit D 25 [place] (Total), CBC with differential, , Testing Performed By: [facility] [address] [place] [address] [address] [address] Tc Jhaveri, Tire Maintenance Technician Performed By: #### C 215, C3763, C47, C8 #### [facility] [address] [place] [address] [place] [address] Neutrophils/100 WBC (Bld) 64.8 % Normal 40.0-74.0 [facility] Comment on above: Order Comment: Items in this order include: Comprehensive Metabolic Panel, Lipid Panel, Vit D 25 [place] (Total), CBC with differential, , Testing Performed By: [facility] [address] [place] [address] Tc Jhaveri, Tire Maintenance Technician Performed By: #### C 215, C3763, C47, C8 #### [facility] [address] [place] [address] [place] [address] Platelet mean volume (Bld) [Entitic vol] 12.4 fL Normal 8.9-12.6 [facility] Comment on above: Order Comment: Items in this order include: Comprehensive Metabolic Panel, Lipid Panel, Vit D 25 [place] (Total), CBC with differential, , Testing Performed By: [facility] [address] [place] [address] [address] Tc Jhaveri, Tire Maintenance Technician Performed By: #### C 215, [id number], C47, C8 #### [facility] [address] [place] [address] [place] [address] PLT 292 K CUMM Normal 130-400 [facility] Comment on above: Order Comment: Items in this order include: Comprehensive Metabolic Panel, Lipid Panel, Vit D 25 [place] (Total), CBC with differential, , Testing Performed By: [facility] [address] [place] [address]. [place] [address] Dr. Tc Jhaveri, Tire Maintenance Technician Performed By: #### C 215, [id number], C47, C8 #### [facility] [address] [place] [address] [place] [address] RBC 4.30 M CUMM Normal 3.80-5.10 [facility] Comment on above: Order Comment: Items in this order include: Comprehensive Metabolic Panel, Lipid Panel, Vit D 25 [place] (Total), CBC with differential, , Testing Performed By: [facility] [address] [place] [address] Tc Jhaveri, Tire Maintenance Technician Performed By: #### C 215, C3763, C47, C8 #### [facility] [address] [place] [address] [place] [address] WBC 7.8 K CUMM Normal 3.8-10.6 [facility] Comment on above: Order Comment: Items in this order include: Comprehensive Metabolic Panel, Lipid Panel, Vit D 25 [place] (Total), CBC with differential, , Testing Performed By: [facility] [address] [place] [address] Tc Jhaveri, Tire Maintenance Technician Performed By: #### C 215, [id number], C47, C8 #### [facility] [address] [place] [address] [place] [address] Comprehensive Metabolic Pane [facility] 10-25-2020 Albumin [Mass/Vol] 4.9 g/dL Normal 3.5-5.0 [facility] Comment on above: Order Comment: Items in this order include: Comprehensive Metabolic Panel, Lipid Panel, Vit D 25 [place] (Total), CBC with differential, , Testing Performed By: [facility] [address] [place] [address]. [place] [address] Dr. Tc Jhaveri, Tire Maintenance Technician Performed By: #### C 215, [id number], C47, C8 #### [facility] [address] [place] [address] [address] [place] [address] Alk Phos 79 U/L Normal 23-159 [facility] Comment on above: Order Comment: Items in this order include: Comprehensive Metabolic Panel, Lipid Panel, Vit D 25 [place] (Total), CBC with differential, , Testing Performed By: [facility] [address] [place] [address] [address] Tc Jhaveri, Tire Maintenance Technician Performed By: #### C 215, [id number], C47, C8 #### [facility] [address] [place] [address] [address] [place] [address] ALT [Catalytic activity/Vol] 18 U/L Normal 0-38 [facility] Comment on above: Order Comment: Items in this order include: Comprehensive Metabolic Panel, Lipid Panel, Vit D 25 [place] (Total), CBC with differential, , Testing Performed By: [facility] [address] [place] [address] [address] Tc Jhaveri, Tire Maintenance Technician Performed By: #### C 215, [id number], C47, C8 #### [facility] [address] [place] [address] [address] [place] [address] AST [Catalytic activity/Vol] 27 U/L Normal 11-43 [facility] Comment on above: Order Comment: Items in this order include: Comprehensive Metabolic Panel, Lipid Panel, Vit D 25 [place] (Total), CBC with differential, , Testing Performed By: [facility] [address] [place] [address]. [place] [address] Dr. Tc Jhaveri, Tire Maintenance Technician Performed By: #### C 215, [id number], C47, C8 #### [facility] [address] [place] [address] [address] [place] [address] Bilirubin [Mass/Vol] 0.9 mg/dL Normal 0.2-1.3 [facility] Comment on above: Order Comment: Items in this order include: Comprehensive Metabolic Panel, Lipid Panel, Vit D 25 [place] (Total), CBC with differential, , Testing Performed By: [facility] [address] [place] [address]. [place] [address] Dr. Tc Jhaveri, Tire Maintenance Technician Performed By: #### C 215, [id number], C47, C8 #### [facility] [address] [facility] [address] [place] [address] Calcium [Mass/Vol] 9.9 mg/dL Normal 8.5-10.5 [facility] Comment on above: Order Comment: Items in this order include: Comprehensive Metabolic Panel, Lipid Panel, Vit D 25 [place] (Total), CBC with differential, , Testing Performed By: [facility] [address] [place] [address]. [place] [address] Dr. Tc Jhaveri, Tire Maintenance Technician Performed By: #### C 215, [id number], C47, C8 #### [facility] [address] [place] [address] [place] [address] Chloride [Moles/Vol] 100 mmol/L Normal 98-107 [facility] Comment on above: Order Comment: Items in this order include: Comprehensive Metabolic Panel, Lipid Panel, Vit D 25 [place] (Total), CBC with differential, , Testing Performed By: [facility] [address] [place] [address]. [place] [address] Dr. Tc Jhaveri, Tire Maintenance Technician Performed By: #### C 215, [id number], C47, C8 #### [facility] [address] [place] [address] [place] [address] CO2 [Moles/Vol] 27.0 mmol/L Normal 21.0-32.0 [facility] Comment on above: Order Comment: Items in this order include: Comprehensive Metabolic Panel, Lipid Panel, Vit D 25 [place] (Total), CBC with differential, , Testing Performed By: [facility] [address] [place] [address]. [place] [address] Dr. Tc Jhaveri, Tire Maintenance Technician Performed By: #### C 215, [id number], C47, C8 #### [facility] [address] [place] [address] [address] [place] [address] Creatinine [Mass/Vol] 0.7 mg/dL Normal 0.1-1.2 [facility] Comment on above: Order Comment: Items in this order include: Comprehensive Metabolic Panel, Lipid Panel, Vit D 25 [place] (Total), CBC with differential, , Testing Performed By: [facility] [address] [place] [address]. [place] [address] Dr. Tc Jhaveri, Tire Maintenance Technician Performed By: #### C 215, C3763, C47, C8 #### [facility] [address] [place] [address] [address] [place] [address] GFR 96 mL/min per 1.73 Normal >60 [facility] Comment on above: Order Comment: Items in this order include: Comprehensive Metabolic Panel, Lipid Panel, Vit D 25 [place] (Total), CBC with differential, , Testing Performed By: [facility] [address] [place] [address]. [place] [address] Dr. Tc Jhaveri, Tire Maintenance Technician Result Comment: The GFR estimate is not adjusted for race. If the patient's race is -Gambian, the GFR estimate must be multiplied by a factor of 1.21. Performed By: #### C 215, C3763, C47, C8 #### [facility], [facility]. [address] [place] [address] [address] [place] [address] Glucose [Mass/Vol] 83 mg/dL Normal 74-[address] [facility] Comment on above: Order Comment: Items in this order include: Comprehensive Metabolic Panel, Lipid Panel, Vit D 25 [place] (Total), CBC with differential, , Testing Performed By: [facility] [address] [place] [address]. [place] [address] Dr. Tc Jhaveri, Tire Maintenance Technician Performed By: #### C 215, C3763, C47, C8 #### [facility], [facility]. [address] [place] [address] [address] [place] [address] Potassium [Moles/Vol] 4.4 mmol/L Normal 3.5-5.3 [facility] Comment on above: Order Comment: Items in this order include: Comprehensive Metabolic Panel, Lipid Panel, Vit D 25 [place] (Total), CBC with differential, , Testing Performed By: [facility] [address] [place] [address]. [place] [address] Dr. Tc Jhaveri, Tire Maintenance Technician Performed By: #### C 215, C3763, C47, C8 #### [facility] [facility] [place] [address] Protein [Mass/Vol] 7.5 g/dL Normal 6.3-8.4 [facility] Comment on above: Order Comment: Items in this order include: Comprehensive Metabolic Panel, Lipid Panel, Vit D 25 [place] (Total), CBC with differential, , Testing Performed By: [facility] [address] [place] [address] Tc Jhaveri, Tire Maintenance Technician Performed By: #### C 215, C3763, C47, C8 #### [facility] [address] [place] [address] [place] [address] Sodium [Moles/Vol] 138 mmol/L Normal 135-145 [facility] Comment on above: Order Comment: Items in this order include: Comprehensive Metabolic Panel, Lipid Panel, Vit D 25 [place] (Total), CBC with differential, , Testing Performed By: [facility] [address] [place] [address] [address] [address] Tc Jhaveri, Tire Maintenance Technician Performed By: #### C 215, C3763, C47, C8 #### [facility] [address] [place] [address] [place] [address] Urea nitrogen [Mass/Vol] 11 mg/dL Normal 6-22 [facility] Comment on above: Order Comment: Items in this order include: Comprehensive Metabolic Panel, Lipid Panel, Vit D 25 [place] (Total), CBC with differential, , Testing Performed By: [facility] [address] [place] [address]. [place] [address] Dr. Tc Jhaveri, Tire Maintenance Technician Performed By: #### C 215, C3763, C47, C8 #### [facility] [address] [place] [address] [place] [address] Lipid Panelon 10-25-2020 Cholesterol [Mass/Vol] 242 mg/dL High <200 [facility] Comment on above: Performed By: #### C 215, C3763, C47, C8 #### [facility] [address] [place] [address] Cholesterol in HDL [Mass/Vol] 68 mg/dL Normal >50 [facility] Comment on above: Performed By: #### C 215, C3763, C47, C8 #### [facility] [address] [facility] [place] [address] Cholesterol in LDL [Mass/Vol] 160 mg/dL High <130 [facility] Comment on above: Performed By: #### C 215, C3763, C47, C8 #### [facility] [address] [facility] [address] [place] [address] Cholesterol.total/C holesterol in HDL [Mass ratio] 3.6 {ratio} Normal <4.0 [facility] Comment on above: Performed By: #### C 215, C3763, C47, C8 #### [facility] [facility] [address] [place] [address] Non-HDL Chol 174 Normal LDL Goal + 30 [facility] Comment on above: Result Comment: LDL and Non-HDL goal dependent upon individual risk Performed By: #### C 215, C3763, C47, C8 #### [facility] [address] [facility] [place] [address] Triglyceride [Mass/Vol] 69 mg/dL Normal <150 [facility] Comment on above: Performed By: #### C 215, C3763, C47, C8 #### [facility] [address] [facility] [place] [address] VLDL-Calc 14 mg/dl Normal <30 [facility] Comment on above: Performed By: #### C 215, C3763, C47, C8 #### [facility] [address] [facility] [place] [address] Vit D 25 [place] (Total)on 2020 Vit D 25 [place] (Total) 32.7 ng/ml Normal 31.0-100.0 [facility] Comment on above: Order Comment: Items in this order include: Comprehensive Metabolic Panel, Lipid Panel, Vit D 25 [place] (Total), CBC with differential, , Testing Performed By: [facility] [address] [place] [address] Dr. Tc Jhaveri, Tire Maintenance Technician Result Comment: Defi ciency <10 ng/ml Insufficiency 10-30 ng/ml Sufficiency 31-100 ng/ml Toxicity >100 ng/ml Performed By: #### C 215, C3763, C47, C8 #### [facility] [address] [place] [address] Patient Summaryon 01-10-2020 Patient Summary PATIENT DISCHARGE INSTRUCTIONS If you are having an emergency and are not able to reach your physician, CALL 911 or go to the nearest emergency room and take this document with you. [facility] 01/10/20 11:23 [address] [place]. [address] PATIENT INFORMATION Name: ANNIA BELLA Address: [address] [place] [id number] Age: 34 Years Phone: [phone] : 1985 12:00 MRN: [id number] Sex: Female Race: White Ethnicity: Not Hispan/Lat Admitted From: Clinic or [facility] Medical Service: Obstetric Nurse Unit/Bed: (CT) [facility] [id number] Admit Date: 01/08/2020 13:46 PCP: Physician, PCP Unknown PHYSICIANS INVOLVED WITH CARE -------- Attending Physicians: Ibeth Gómez MD, Shantel Tafoya Gynecology, Obstetrics Admitting Physician: Ibeth Gómez MD, Shantel Jacobs - Gynecology, Obstetrics Primary Care Physician:Physician, PCP Unknown,Family Practice,,, - Consults: Praneeth MONAE, Zahida - Pediatrics FOLLOW-UP APPOINTMENTS: Provider: Specialty: Address: Date: Shantel Gómez MD Gynecology; Obstetrics One Week ALLERGIES: No Known Allergies MEASUREMENTS: Last Charted: Weight: Admission 74.80 kg /164 lbs 14 oz ( 01/08/20 12:59:00 ) MEDICATIONS For: ANNIA BELLA This is your list of medication(s). Keep it with you at all times. Your doctor may have changed doses, add, held or stopped some of your medications. Please share this information with your family doctor. Carry this list of medications with you in case of an emergency. Update it when medications are stopped, doses are changed, or new medications (including onfk-hnh-jopwaet products) are added. Ask your doctor if you have any questions. THESE ARE THE MEDICATIONS YOU SHOULD BE TAKING ibuprofen (ibuprofen 600 mg oral tablet) 1 Tab(s) By Mouth 4 Times/Day as needed for pain. Refills: 0. multivitamin, ( Multivitamin) 1 Tab(s) By Mouth once a day. MEDICATION CHANGE DETAILS (Not your Final Home Medication List) During the course of your visit, your home medication list was updated with the most current information. The details of those changes are shown below: NEW MEDICATIONS Printed Prescriptions ibuprofen (ibuprofen 600 mg oral tablet) 1 Tab(s) By Mouth 4 Times/Day as needed for pain. Refills: 0. Comment UPDATED MEDICATIONS None UNCHANGED MEDICATIONS Other Medications multivitamin, ( Multivitamin) 1 Tab(s) By Mouth once a day. Comment STOP TAKING THESE MEDICATIONS None DO NOT TAKE UNTIL YOU TALK TO YOUR DOCTOR None NON-MEDICATION PRESCRIPTION SCHEDULING PHONE NUMBER: EDUCATION MATERIALS GIVEN: Title-Video/Print Material: YEISON lundberg teaching SELECTED LAB RESULTS Lab Result Order Date Hemoglobin 11.9 gm/dL 01/08/2020 Hematocrit 35.4 % 01/08/2020 WBC Count 15.3 thou/mcL 01/08/2020 Platelet Count 186 thou/mcL 01/08/2020 ADVANCE DIRECTIVE/HEALTH CARE DECISIONS: Advance Directive/Health Care Decisions Executed by Patient: : No Information Obtained From: Patient Advance Directive Health Care Information Offered: Patient declines SUICIDE HOTLINE: Your mental and emotional well-being are important. If you are in a mental health crisis, or having thoughts of suicide, please call the nationwide suicide hotline, anytime day or night, at 5-500-435-IZUN. It's easy to sign up for [employer]: 1. Visit [facility] /[employer] 2. Click on [place] for [employer] 3. Verify your identity by entering your last name and date of (MM/DD/YYYY). 4. You'll be asked to set up a username and password. 5. Next, you'll create three security questions. Be sure to supply answers that are not easy for others to guess or discover. 6. If all information (first name, last name and date of ) matches what we have on file, we'll then send a PIN to your phone that you will be asked to enter. 7. When your Identity is verified, you'll be able to access your patient record 8. Once all of this is complete and you've successfully activated your account, you'll be redirected to the [employer] login page. Login and check to see your results Questions? For help with account enrollment, call [employer] Customer Support at [phone] (toll-free) PATIENT EDUCATION Discharge Instructions for Mother 1. Call Your doctor or healthcare provider if you have any of these signs: ?? Blurred vision or dizziness ?? Headache not relieved by medication ?? A red, warm, painful area in your leg ?? An increase in bright red vaginal bleeding, that soaks a pad in one hour or less, frequent clots, or strong vaginal odor ?? Temperature of 100.5 F (38.1 C) or above ?? Achiness, flu-like symptoms, or vomiting ?? A reddened, hard, tender area of the breast (may be an infection called mastitis) ?? Pain or burning with urination ?? Difficulty having a bowel movement ?? Sadness, crying spells or mood swings that feel out of control ?? Any pain that becomes worse after you are discharged ?? Redness, warmth, or swelling at your incision site ?? Any opening to your incision ?? Drainage from incision that is foul smelling and/or green or yellow in color ?? Vaginal or rectal area becomes more painful, tender or red instead of getting better Call 911 for any emergency! 2. Nutrition: ?? You may eat your normal diet. ?? Drink at least 8 to10 glasses of water daily. ?? Eat fresh fruits, vegetables, whole grains and a source of protein every day. 3. Activity: ?? Rest often. ?? Gradually increase your daily activities until you are back to your normal routine. ?? Do not drive for 2 weeks or while on prescription pain medication. ?? You may shower but do not go swimming or sit in hot tubs for 6 weeks. ?? Limit the use of stairs. ?? Do not push, pull or lift anything over 10 pounds. ?? Do not have sexual intercourse until cleared by your doctor. ?? Do not return to work until cleared by your doctor. 4. Breast Care for moms: ?? Engorgement care: Feed often- 8-12 times in 24 hours, use cold compresses to reduce swelling and discomfort. Use warm, moist compresses and gentle massage to soften the breasts before . ?? Nipple care: If sore, apply breastmilk, air dry and use small amounts of lanolin after as needed. If painful during feeding, check for deep latch. If cracked, blistered or bleeding, call outpatient at [phone] for help. 5. Care of Perineum following Delivery: ?? Keep area clean and dry. ?? Change pads regularly. ?? Bleeding or discharge may last up to 6 weeks. It should become light red to pink, then clear. ?? Use a Ashley bottle with warm water after using bathroom. Continue until no longer bleeding or having discharge. ?? Pat dry from front to back. ?? Use a warm sitz bath or soak in a clean bathtub 2 to 4 times a day as needed for vaginal comfort. ?? Do not use tampons and do not douche. 6. Care after a Delivery: ?? Keep incision clean and dry. ?? Clean incision with soap and water. Rinse well and pat dry. ?? Do not cover with bandages unless instructed by your healthcare provider. ?? Remove Steri strips after 7 to10 days, if still on. ?? If you have juan in your incision, call your healthcare provider for staple removal. 7. Emotional Health: ?? As a new mother you will feel love, john, and exhaustion. Nothing can truly prepare you for parenthood. ?? Hormones and fatigue have a major impact on your feelings and emotions. ?? You may get the ??baby blues?? after delivery. You may feel overwhelmed, anxious, irritable, and cry easily. These feelings are normal and may begin 2 or 3 days after you have your baby, and should go away on their own in a week or two. 9. Depression: ?? Sadness, anxiety, or hopelessness that lasts more than 2 weeks may be Depression. These symptoms are not a sign of weakness or inadequacy as a mother. You are not to blame for these feelings. If you have any of these symptoms of Depression, contact your healthcare provider right away: ?? Loss of appetite ?? Sleep disturbances (loss of sleep or sleeping too much) ?? Fear and /or anxiety ?? Feelings of hopelessness or loss of control ?? Problems concentrating or making decisions ?? Crying spells ?? Over concern or no concern about the baby ?? Fear of touching or caring for the baby 10. Ways to cope: ?? Do not be afraid to ask for help! ?? Give yourself time to adjust to the demands of parenthood. ?? Take a walk around the block, or take part in exercise such as yoga. ?? Tell your family members and friends how you are feeling and how they can support you. ?? Find a support group in your community. ?? Know you are not alone - Depression is real and treatable. Discharge Instructions for Baby 1. Call your baby's doctor or healthcare provider if your baby: ?? Has a temperature over 100 F (37.8 ) taken under the arm ?? Vomits repeatedly or refuses to eat 2 or more times in a row ?? Cries continuously or has a high pitched cry ?? Is hard to wake up or is not as active as normal ?? Has jaundice or yellowing of the skin or whites of the eyes ?? Has an unusual rash, particularly when accompanied by a fever. ?? Has signs of dehydration such as dry mouth, inactivity, limpness or sunken eyes ?? Has redness, bleeding, or drainage from the umbilical cord area or circumcision ?? Has excessive swelling to circumcision ?? Has difficulty with bowel movements or has bowel movements that have mucous or are bloody. Call 911 for any emergency! 2. Feeding: ?? Feed your baby only breastmilk the first 6 months. ?? Do not give your baby water, juice, cow's milk or solid foods until instructed to do so by your baby's doctor. ?? Complimentary or solid foods are introduced at 6 months of age, but breastmilk is continued until 12 months or longer. ?? Call [phone] ([phone] if any questions or concerns with ?? Follow your baby's hunger cues. ?? Feed your baby 8-12 times in 24 hours. ?? Bring baby close for a deep, comfortable and effective latch. Watch and listen for swallowing. ?? Your baby should have 6 to 8 wet diapers per day by one week of age. ?? Your baby may have yellow, seedy stools. ?? Call your baby's doctor if your baby has any signs of dehydration such as dry mouth, inactivity, limpness or sunken eyes. 3. Activity: ?? Look into your baby's eyes while giving care. ?? Talk and sing to your baby. ?? Provide a quiet soothing place for your baby. 4. Safety: ?? Use a bulb syringe to clear baby's nostrils as needed. ?? Never leave your baby alone on a high place such as a couch or changing table. ?? Do not allow anyone to smoke around the baby. ?? Supervise pets at all times when around infant. ?? Include siblings in the care and john of the new baby while supervised. ?? Always use a car seat when is in a motor vehicle. ?? Always wash your hands before touching the baby, particularly before and after feedings and diaper changes. ?? Instruct visitors to wash their hands before touching the baby. ?? Avoid taking your baby to large, crowded places for the first few weeks. ?? Ask friends and family not to visit if they have any signs of colds, flu or illness. 5. Crying/Emotional needs: ?? Babies may have periods of excessive crying that may be very frustrating. ?? To calm a fussy baby, hold your baby in skin to skin care (kangaroo care), take a car ride or a walk in a stroller, or give your baby a warm relaxing bath. ?? Reduce noise and dim the lighting. ?? Gently rock your baby and talk or sing softly. ?? To prevent Shaken Baby Syndrome, ask your partner or a trusted friend to take over for a while, OR lay the baby in a safe place such as a crib and take a break if you need to calm down. 6. Safe Sleep: ?? Follow the ABC's of safe sleep. Alone, on their Back, and in their Crib. ?? Do not have anything in the 's crib: NO pillows, blankets, quilts, comforters, toys, stuffed animals, or bumper pads. ?? Mattress should be firm with tight fitting sheet. ?? Do not use wedges, rolled blankets, or any positioning devices. ?? Consider using sleep sacks instead of blankets. ?? Avoid overheating, head coverings, or hats when sleeping. ?? Infants should not sleep on an adult bed or a couch. ?? Car seats, bouncers, strollers, and swings should be used for their intended purpose under adult supervision, and should not be used for routine sleep in the home. ?? After is well established (usually after 3-4 weeks), using a pacifier during sleep can help reduce the risk of SIDS. ?? Give your baby supervised tummy time every day while awake to promote motor development. Tummy time will help strengthen their muscles and avoid flat spots on the head. 7. Bathing and Grooming: ?? Keep the umbilical cord dry by giving your baby a sponge bath until the cord falls off (about 7 to 10 days). ?? Bathe your baby every 2 or 3 days using a mild soap on the body. Do not use soap on the face. ?? Use a nail file to shorten your baby's nails. ?? Never leave your baby unsupervised, even for a minute. ?? Allow the cord to air dry and fold the diaper below the umbilical cord. ?? Change your baby's diaper often to prevent diaper rash. ?? Dress your baby for the temperature, usually with one extra layer than you would dress yourself. ?? Baby's skin does not normally need lotions or oils. Do not use baby powder. 10. Circumcision Care: My baby had a GOMCO ? My baby had a PLASTIBEL ?: ?? There are different methods to perform a circumcision. If your baby has a plastic ring on the tip of his penis, this is called a ??plastibell??. If your baby has a plastibell, do not apply Vaseline. Allow the ring to fall off by itself. Do not pull down the remainder of the foreskin with this method. ?? If your baby had the Gomco procedure, apply Vaseline generously around tip of penis with each diaper change for 5 to 7 days. Make sure you can see the entire gland in circumcised penis, if necessary gently push the skin back to expose the glans. ?? Area can be red and swollen for a few days after procedure, and should heal within 5 to 10 days. ?? Yellowish-white discharge on the head of the penis is normal and should go away as it heals. ?? If needed, use a mild baby soap and water to clean the circumcision site. Do not clean circumcision area with baby wipes until fully healed. ?? Call the baby's doctor if you notice bright red bleeding, unusual swelling, drainage or odor to area. For more information on these topics, refer to the Caring for Yourself and Your Baby Booklet. I have been instructed and have received information about: ?How to care for my baby ?How to feed my baby ?How to care for myself after delivery ? Depression ?Jaundice ?Domestic Violence Resources ?[facility] [place] Screening ?[facility] Hearing Development information ?[facility] Safe Sleep Environment Screening ?[facility] Screening Brochure ??A Sound Beginning??. ?Shaken Baby Syndrome information ?Safe Sleep Instructions ?State Law requiring car seat and proper position of the car seat ?Discharge Book ??Caring for Yourself and Your New Baby?? ? Book ?Infant Formula Preparation and Storage (if applicable) ?Paced Bottle Feeding If any of these instructions are different from what your doctor tells you, follow your doctor's orders. If you smoke, you should quit. For more information, talk with your doctor or call [phone]-NOW ( ). I have received a copy of all discharge instructions and understand how to take care of myself and my baby after discharge. Patient Signature Nurse Signature Date Time Vaginal Delivery, Care After Refer to this sheet in the next few weeks. These discharge instructions provide you with information on caring for yourself after delivery. Your health care provider may also give you specific instructions. Your treatment has been planned according to the most current medical practices available, but problems sometimes occur. Call your health care provider if you have any problems or questions after you go home. HOME CARE INSTRUCTIONS ???Take yokx-bts-ehmgmza or prescription medicines only as directed by your health care provider or pharmacist. ???Do not drink alcohol, especially if you are or taking medicine to relieve pain. ???Do not chew or smoke tobacco. ???Do not use illegal drugs. ???Continue to use good perineal care. Good perineal care includes: ???Wiping your perineum from front to back. ???Keeping your perineum clean. ???Do not use tampons or douche until your health care provider says it is okay. ???Shower, wash your hair, and take tub baths as directed by your health care provider. ???Wear a well-fitting bra that provides breast support. ???Eat healthy foods. ???Drink enough fluids to keep your urine clear or pale yellow. ???Eat high-fiber foods such as whole grain cereals and breads, brown rice, beans, and fresh fruits and vegetables every day. These foods may help prevent or relieve constipation. ???Follow your health care provider's recommendations regarding resumption of activities such as climbing stairs, driving, lifting, exercising, or traveling. ???Talk to your health care provider about resuming sexual activities. Resumption of sexual activities is dependent upon your risk of infection, your rate of healing, and your comfort and desire to resume sexual activity. ???Try to have someone help you with your household activities and your for at least a few days after you leave the hospital. ???Rest as much as possible. Try to rest or take a nap when your is sleeping. ???Increase your activities gradually. ???Keep all of your scheduled appointments. It is very important to keep your scheduled follow-up appointments. At these appointments, your health care provider will be checking to make sure that you are healing physically and emotionally. SEEK MEDICAL CARE IF: ???You are passing large clots from your vagina. Save any clots to show your health care provider. ???You have a foul smelling discharge from your vagina. ???You have trouble urinating. ???You are urinating frequently. ???You have pain when you urinate. ???You have a change in your bowel movements. ???You have increasing redness, pain, or swelling near your vaginal incision (episiotomy) or vaginal tear. ???You have pus draining from your episiotomy or vaginal tear. ???Your episiotomy or vaginal tear is . ???You have painful, hard, or reddened breasts. ???You have a severe headache. ???You have blurred vision or see spots. ???You feel sad or depressed. ???You have thoughts of hurting yourself or your . ???You have questions about your care, the care of your , or medicines. ???You are dizzy or light-headed. ???You have a rash. ???You have nausea or vomiting. ???You were and have not had a menstrual period within 12 weeks after you stopped . ???You are not and have not had a menstrual period by the 12th week after delivery. ???You have a fever. SEEK IMMEDIATE MEDICAL CARE IF: ???You have persistent pain. ???You have chest pain. ???You have shortness of breath. ???You faint. ???You have leg pain. ???You have stomach pain. ???Your vaginal bleeding saturates two or more sanitary pads in 1 hour. MAKE SURE YOU: ???Understand these instructions. ???Will watch your condition. ???Will get help right away if you are not doing well or get worse. This information is not intended to replace advice given to you by your health care provider. Make sure you discuss any questions you have with your health care provider. Document Released: 04/17/2001 Document Revised: 09/04/2015 Document Reviewed: 12/15/2012 Elsevier Interactive Patient Education ?2016 [employer]. PATIENT DISCHARGE INSTRUCTION Signature Page for: ANNIA BELLA Date/Time: 01/10/2020 11:23:37 A Clinician has explained the information on my discharge instructions and has provided me with a copy. My questions have been answered to my satisfaction. Patient Signature _ Date/Time Responsible Party Date/Time Relationship to Patient Clinician Signature Date/Time Normal [facility] Syphilis Screenon 01-09-2020 T. pallidum Ab IA Ql (S) NONREAC Normal NONREAC [facility] Comment on above: Result Comment: No s erologic evidence of syphilis. Performed By: #### 3 9231-6 #### DEREKSean [facility] [address] [place] [id number] Antibody Screen Interpretati on (T+S Compon 01-08-2020 Interpretation and review of laboratory results Negative Normal NEGATIVE-NEGAT BENJAMIN [facility] Comment on above: Performed By: #### 8 90-4, 882-1x1 #### [facility], [address] [place] [address]. Blood Typing ABO + Rh(D)on 0 01-08-2020 ABO and Rh group Nom (Bld) ABPOS Normal [facility] Comment on above: Performed By: #### 8 90-4, 882-1x1 #### [facility], [address] [place] [address]. CBCon 01-08-2020 Erythrocyte distribution width (RBC) [Entitic vol] 12.6 % Normal 11.0-14.8 [facility] Comment on above: Performed By: #### 2 4317-0 #### [facility], [address] [place] [address]. Hematocrit (Bld) [Volume fraction] 35.4 % Normal 35.0-45.0 [facility] Comment on above: Performed By: #### 2 4317-0 #### [facility], [address] [place] [address]. Hemoglobin (Bld) [Mass/Vol] 11.9 g/dL Low 12.0-16.0 [facility] Comment on above: Performed By: #### 2 4317-0 #### [facility], [address] [place], [place]. MCH (RBC) [Entitic mass] 30.6 Picograms Normal 27.0-34.0 [facility] Comment on above: Performed By: #### 2 4317-0 #### [facility], [address] [place], [place]. MCHC (RBC) [Mass/Vol] 33.7 g/dL Normal 32.0-36.0 [facility] Comment on above: Performed By: #### 2 4317-0 #### [facility], [address] [place], [place]. MCV (RBC) [Entitic vol] 91.0 fL Normal 80.0-97.0 [facility] Comment on above: Performed By: #### 2 7-0 #### [facility], [address], [place]. Platelet mean volume (Bld) [Entitic vol] 12.1 fL Normal 6.2-12.1 [facility] Comment on above: Performed By: #### 2 7-0 #### [facility], [address] [place], [place]. Platelets (Bld) [#/Vol] 186 thou/mcL Normal 142-424 [facility] Comment on above: Performed By: #### 2 4317-0 #### [facility], [address] [place], [place]. RBC (Bld) [#/Vol] 3.89 million/mcL Normal 3.80-5.10 [facility] Comment on above: Performed By: #### 2 4317-0 #### [facility], [address], [place]. WBC (Bld) [#/Vol] 15.3 thou/mcL High 4.6-10.2 [facility] Comment on above: Performed By: #### 2 4317-0 #### [facility], [address], [place]. Hold Clot (Blood Bank)on Other useful information NOTNEED Normal [facility] Comment on above: Performed By: #### 1 1111-6 #### [facility], [address], [place]. Vital Signs Date Time Vital Sign Value Performing Clinician Suhabi edie 08-23-2023 09:58-0400 Body temperature 97.2 [degF] Dulce Maria Houser VALET CASHIER.ELECTRONIC PAGINATION SYSTEM OPERATOR Work Phone: [facility] 08-23-2023 09:58-0400 Body weight 61 kg Dulce Maria Houser VALET CASHIER.ELECTRONIC PAGINATION SYSTEM OPERATOR Work Phone: [facility] 08-23-2023 09:58-0400 Diastolic blood pressure 65 mm[Hg] Dulce Maria Houser VALET CASHIER.ELECTRONIC PAGINATION SYSTEM OPERATOR Work Phone: [facility] 08-23-2023 09:58-0400 Heart rate 64 /min Dulce Maria Houser VALET CASHIER.ELECTRONIC PAGINATION SYSTEM OPERATOR Work Phone: [facility] 08-23-2023 09:58-0400 Respiratory rate 18 /min Dulce Maria Houser VALET CASHIER.ELECTRONIC PAGINATION SYSTEM OPERATOR Work Phone: [facility] 08-23-2023 09:58-0400 SaO2% (BldA) [Mass fraction] 100 % Dulce Maria Houser VALET CASHIER.ELECTRONIC PAGINATION SYSTEM OPERATOR Work Phone: [facility] 08-23-2023 09:58-0400 Systolic blood pressure 100 mm[Hg] Dulce Maria Houser VALET CASHIER.ELECTRONIC PAGINATION SYSTEM OPERATOR Work Phone: [facility] 12-26-2022 08:34-0400 Body height 162.6 cm Jairo Romero MD Work Phone: [facility] 12-26-2022 08:34-0400 Body weight 62.14 kg Jairo Romero MD Work Phone: [facility] 12-26-2022 08:34-0400 Diastolic blood pressure 60 mm[Hg] Jairo Romero MD Work Phone: [facility] 12-26-2022 08:34-0400 Heart rate 58 /min Jairo Romero MD Work Phone: [facility] 12-26-2022 08:34-0400 Respiratory rate 16 /min Jairo Romero MD Work Phone: [facility] 12-26-2022 08:34-0400 SaO2% (BldA) [Mass fraction] 99 % Jairo Romero MD Work Phone: [facility] 12-26-2022 08:34-0400 Systolic blood pressure 90 mm[Hg] Jairo Romero MD Work Phone: [facility] 12-24-2021 11:49-0400 Body temperature 99 [degF] Dulce Maria Houser VALET CASHIER.ELECTRONIC PAGINATION SYSTEM OPERATOR Work Phone: [facility] 12-24-2021 11:49-0400 Body weight 61.24 kg Dulce Maria Houser VALET CASHIER.ELECTRONIC PAGINATION SYSTEM OPERATOR Work Phone: [facility] 12-24-2021 11:49-0400 Diastolic blood pressure 64 mm[Hg] Dulce Maria Houser VALET CASHIER.ELECTRONIC PAGINATION SYSTEM OPERATOR Work Phone: [facility] 12-24-2021 11:49-0400 Heart rate 84 /min Dulce Maria Houser VALET CASHIER.ELECTRONIC PAGINATION SYSTEM OPERATOR Work Phone: [facility] 12-24-2021 11:49-0400 Respiratory rate 16 /min Dulce Maria Houser VALET CASHIER.ELECTRONIC PAGINATION SYSTEM OPERATOR Work Phone: [facility] 12-24-2021 11:49-0400 SaO2% (BldA) [Mass fraction] 99 % Dulce Maria Houser VALET CASHIER.ELECTRONIC PAGINATION SYSTEM OPERATOR Work Phone: [facility] 12-24-2021 11:49-0400 Systolic blood pressure 110 mm[Hg] Dulce Maria Houser VALET CASHIER.ELECTRONIC PAGINATION SYSTEM OPERATOR Work Phone: [facility] Encounters Encounter Date Encounter Type Care Provider Facility Start: 08-23-2023 End: 08-23-2023 ambulatory JAIRO ROMERO Facility:[facility] Start: 08-23-2023 End: 08-23-2023 Patient encounter procedure Dulce Maria Houser VALET CASHIER.ELECTRONIC PAGINATION SYSTEM OPERATOR Work Phone: [facility] Comment on above: Conjunctivitis of ri ght eye, unspecified conjunctivitis type (Primary Dx); URI, acute Start: 06-29-2023 Telephone encounter Faraz Romero MD Work Phone: [facility] Comment on above: Results Start: 06-19-2023 End: 06-20-2023 ambulatory JAIRO ROMERO Facility:[facility] Start: 06-19-2023 Patient encounter procedure JAIRO ROMERO [facility] Start: 03-20-2023 End: 03-21-2023 ambulatory JAIRO ROMERO Facility:[facility] Start: 03-13-2023 End: 03-14-2023 ambulatory JAIRO ROMERO Facility:[facility] Start: 12-26-2022 End: 12-26-2022 ambulatory JAIRO ROMERO Facility:[facility] Start: 12-26-2022 End: 12-26-2022 Patient encounter procedure Jairo Romero MD Work Phone: [facility] Comment on above: Melasma (Primary Dx) ; Encounter to establish care; Depression screening Start: 05-29-2022 End: 05-29-2022 ambulatory NO PRIMARY CARE [facility] Start: 05-01-2022 End: 05-01-2022 ambulatory [facility] Start: 03-24-2022 End: 03-24-2022 ambulatory [facility] Start: 02-20-2022 End: 02-20-2022 ambulatory [facility] Start: 01-23-2022 End: 01-23-2022 ambulatory [facility] Start: 01-23-2022 End: 01-23-2022 ambulatory [facility] Start: 12-24-2021 End: 12-24-2021 Patient encounter procedure Dulce Maria Houser APRN.CNP Work Phone: [facility] Comment on above: Headache, unspecifie d headache type (Primary Dx); Viral illness Start: 12-24-2020 End: 12-24-[address] [facility] Start: 12-24-2020 End: 12-24-2020 Office outpatient new 45 minutes Tc Rivera MD Work Phone: [facility] Comment on above: Melasma (Primary Dx) ; Dermal nevus of left cheek; Osborne angioma Start: 10-26-2020 End: 10-26-2020 Transcribe Orders Maira Lai MA [facility] Comment on above: Melasma (Primary Dx) Procedures Date Procedure Procedure Detail Performing Clinician Start: 12-24-2021 Urnls dip stick/tabl et rgnt auto w/o microscopy Dulce Maria Houser VALET CASHIER.ELECTRONIC PAGINATION SYSTEM OPERATOR Work Phone: Plan of Treatment Date Care Activity Detail Author Start: 04-07-2032 Urine microalbumin profile [facility] Start: 11-09-2029 Tetanus vaccination Tetanus: Every 1 0yrs [facility] Start: 03-20-2024 Covid-19 Vaccine ( season) Covid-19 Vaccine () [facility] Comment on above: Postponed from 01/02 (Declined at this time) Start: 03-20-2024 HIV screening HIV Screening [facility] Comment on above: Postponed from 04/26 (Declined at this time) Start: 03-20-2024 Screening for malign ant neoplasm of cervix [facility] Comment on above: Postponed from 04/26 (Declined at this time) Postponed from 04/26 (Declined at this time) Start: 12-27-2023 COVID-19 VACCINE (3 - Booster for Roxana series) COVID-19 VACCINE (3 - Booster for Roxana series) [facility] Comment on above: Postponed from 05/16 (Declined at this time) Start: 05-04-2023 Behavioral Health Screening Behavioral Health Screening [facility] Start: 05-04-2023 Depression Assessment Depression Ass essment [facility] Start: 02-25-2023 End: 04-27-2023 CBC W Auto Differential panel - Blood CBC + DIFF Lab Routine Encounter to establish care Expected: 02/25/2023, Expires: 04/27/[address] [facility] Work Phone: Comment on above: Expected: 02/25/2023 , Expires: 04/27/2023 Start: 02-25-2023 End: 04-27-2023 Comprehensive metabolic 2000 panel - Serum or Plasma COMP METABOLIC PANEL Lab Routine Encounter to establish care Expected: 02/25/2023, Expires: 04/27/[address] [facility] Work Phone: Comment on above: Expected: 02/25/2023 , Expires: 04/27/2023 Start: 02-25-2023 End: 04-27-2023 Lipid 1996 panel - Serum or Plasma LIPID PANEL BASIC Lab Routine Encounter to establish care Expected: 02/25/2023, Expires: 04/27/[address] [facility] Work Phone: Comment on above: Expected: 02/25/2023 , Expires: 04/27/2023 Start: 01-02-2023 Influenza vaccination INFLUENZA (#1) [facility] Start: 01-02-2022 Influenza vaccination INFLUENZA (#1) [facility] Start: 12-24-2021 End: 01-07-2022 Influenza virus A and B RNA and SARS-CoV-2 (COVID-19) N gene panel - Respiratory specimen by SINA with probe detection [facility] Work Phone: Comment on above: Expected: 12/24/2021 , Expires: 01/07/2022 Start: 01-02-2021 Influenza vaccination Sequenti al Influenza Vaccine (#1) [facility] Start: 2016 HPV TESTING HPV TESTING [facility] Start: 2007 PAP TESTING PAP TESTING [facility] Start: 2004 Hepatitis C screening Hepatitis C [facility] Start: 2004 HEPATITIS C SCREENING HEPATITIS C [facility] Start: 2004 HIV SCREENING HIV SCREENING [facility] Start: 07-06-2002 Urine microalbumin profile DTAP,TDAP,TD (6 - Tdap) [facility] Start: 2001 HIV screening HIV Screening [facility] Start: 1998 Depression screening using PHQ-9 (Patient Health Questionnaire 9) score [facility] Start: 1989 History and physical examination, annual for health maintenance Wellness Visit [facility] Start: 1986 COVID-19 VACCINE (#1) COVID-19 VACCI NE (#1) [facility] Start: 1986 Screening for malign ant neoplasm of cervix Pap Smear Counts include 234 beds at the [facility] Immunizations Immunization Date Immunization Notes Care Provider Fa cility 03-20-2023 influenza, injectabl e, quadrivalent, contains preservative Jairo Romero MD Work Phone: [facility] 04-07-2022 tetanus toxoid, reduced diphtheria toxoid, and acellular pertussis vaccine, adsorbed Jairo Romero MD Work Phone: [facility] Work Phone: 02-21-2022 influenza, seasonal, injectable Jairo Romero MD Work Phone: [facility] 03-20-2020 influenza, injectabl e, quadrivalent, preservative free Jairo Romero MD Work Phone: [facility] 11-10-2019 tetanus toxoid, reduced diphtheria toxoid, and acellular pertussis vaccine, adsorbed Jairo Romero MD Work Phone: [facility] 05-27-2019 Influenza, injectabl e, Madin [place] Canine Kidney, preservative free, quadrivalent Jairo Romero MD Work Phone: [facility] 07-10-2014 tetanus toxoid, reduced diphtheria toxoid, and acellular pertussis vaccine, adsorbed Jairo Romero MD Work Phone: [facility] 05-30-2005 hepatitis A vaccine, unspecified formulation Dulce Maria Houser VALET CASHIER.ELECTRONIC PAGINATION SYSTEM OPERATOR Work Phone: [facility] Work Phone: 12-06-2004 Meningococcal, MCV4, unspecified conjugate formulation(groups A, C, Y and W-135) Dulce Maria Houser VALET CASHIER.ELECTRONIC PAGINATION SYSTEM OPERATOR Work Phone: [facility] 07-05-2002 TD(adult) unspecifie d formulation Jairo Romero MD Work Phone: [facility] 07-05-2002 tetanus and diphther ia toxoids, adsorbed, preservative free, for adult use (2 Lf of tetanus toxoid and 2 Lf of diphtheria toxoid) Dulce Maria Houser VALET CASHIER.ELECTRONIC PAGINATION SYSTEM OPERATOR Work Phone: [facility] 05-04-2000 hepatitis A vaccine, adult dosage Jairo Romero MD Work Phone: [facility] 05-04-2000 tetanus toxoid, adsorbed Jairo Romero MD Work Phone: [facility] 04-29-1999 hepatitis B vaccine, pediatric or pediatric/adolescent dosage Dulce Maria Houser VALET CASHIER.ELECTRONIC PAGINATION SYSTEM OPERATOR Work Phone: [facility] 11-28-1998 hepatitis B vaccine, pediatric or pediatric/adolescent dosage Dulce Maria Houser VALET CASHIER.ELECTRONIC PAGINATION SYSTEM OPERATOR Work Phone: [facility] 10-03-1998 hepatitis B vaccine, pediatric or pediatric/adolescent dosage Dulce Maria Houser VALET CASHIER.ELECTRONIC PAGINATION SYSTEM OPERATOR Work Phone: [facility] 10-03-1998 measles, mumps and rubella virus vaccine Dulce Maria Houser VALET CASHIER.ELECTRONIC PAGINATION SYSTEM OPERATOR Work Phone: [facility] 09-28-1991 diphtheria, tetanus toxoids and pertussis vaccine Dulce Maria Houser VALET CASHIER.ELECTRONIC PAGINATION SYSTEM OPERATOR Work Phone: [facility] 09-28-1991 trivalent poliovirus vaccine, live, oral Dulce Maria Houser VALET CASHIER.ELECTRONIC PAGINATION SYSTEM OPERATOR Work Phone: [facility] 05-01-1988 diphtheria, tetanus toxoids and pertussis vaccine Dulce Maria Houser VALET CASHIER.ELECTRONIC PAGINATION SYSTEM OPERATOR Work Phone: [facility] 05-01-1988 trivalent poliovirus vaccine, live, oral Dulce Maria Houser VALET CASHIER.ELECTRONIC PAGINATION SYSTEM OPERATOR Work Phone: [facility] 12-21-1987 haemophilus influenz ae type b vaccine, PRP-D conjugate Dulce Maria Houser VALET CASHIER.ELECTRONIC PAGINATION SYSTEM OPERATOR Work Phone: [facility] 09-14-1987 measles, mumps and rubella virus vaccine Dulce Maria Houser VALET CASHIER.ELECTRONIC PAGINATION SYSTEM OPERATOR Work Phone: [facility] 04-21-1987 trivalent poliovirus vaccine, live, oral Dulce Maria Houser VALET CASHIER.ELECTRONIC PAGINATION SYSTEM OPERATOR Work Phone: [facility] 1986 diphtheria, tetanus toxoids and pertussis vaccine Dulce Maria Houser VALET CASHIER.ELECTRONIC PAGINATION SYSTEM OPERATOR Work Phone: [facility] 1986 diphtheria, tetanus toxoids and pertussis vaccine Dulce Maria Houser VALET CASHIER.ELECTRONIC PAGINATION SYSTEM OPERATOR Work Phone: [facility] 1986 trivalent poliovirus vaccine, live, oral Dulce Maria Houser VALET CASHIER.ELECTRONIC PAGINATION SYSTEM OPERATOR Work Phone: [facility] 1986 diphtheria, tetanus toxoids and pertussis vaccine Dulce Maria Houser VALET CASHIER.ELECTRONIC PAGINATION SYSTEM OPERATOR Work Phone: [facility] 1986 trivalent poliovirus vaccine, live, oral Jairo Romero MD Work Phone: [facility] Payers Date Payer Category Payer Private Health Insurance [id number] 2021 Private Health Insurance [id number] 1986 Unknown [id number] 1986 Unknown [id number] 1986 Unknown [id number] 1986 Unknown [id number] 1986 Unknown [id number] 1986 Unknown [id number] 1986 Unknown [id number] Unknown [facility]* [id number] Effective for all dates [address] [address] [place] [address] 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 Start: 12-14-2021 End: 12-24-2021 Exposure to SARS-CoV-2 (event) Yes [facility] Start: 12-26-2022 End: 08-23-2023 Alcohol intake Current drinker of alcohol (finding) [facility] Start: 12-26-2022 End: 08-23-2023 History of Social function [facility] Work Phone: Start: 12-26-2022 End: 08-23-2023 Tobacco use panel [facility] Work Phone: Adult Depression Screening Assessment 0 [facility] Work Phone: Start: 12-26-2022 Alcohol Comment 1-2 drinks per month [facility] Start: 09-13-2022 Gender identity Identifies as female gender (finding) [facility] Clinical Notes 12-24-2020 to 08-23-2023 Dulce Maria Houser APRN.CNP - 08/23/2023 10:09 AM EDTTelephone Encounter - Alice Villarreal LPN - 07/06/2023 2:05 PM ESTTelephone Encounter - Jasmina Salvador LPN - 06/30/2023 8:44 AM EST Note Date & Type Note Facility 08-23-2023 Note HNO ID: [id number] Author: DULCE MARIA HOUSER APRN.CNP Service: ? Author Type: Nurse Practitioner Type: Progress Notes Filed: 08/23/2023 10:35 Note Text: This note was created using Struqriter. Subjective Annia Bella is a 38 year old female. 38 year old female with no PMH presents for eye complaints. Acute onset this morning. Right eye States she woke up with discomfort +crusted +redness Denies loss of vision. Denies blurred vision ?? Feeling of FB maybe a couple times she had that feeling. Denies presently She does have URI sx of cough and congestion. Her child was recently treated for conjunctivitis. Wears corrective lens and contacts. Last eye appt Apr 2022 The history is provided by the patient. No speech and language assistant was used. Eye Problem This is a new problem. The current episode started today. The problem occurs constantly. The problem has been unchanged. Associated symptoms include congestion and coughing. Pertinent negatives include no abdominal pain, anorexia, arthralgias, change in bowel habit, chest pain, chills, diaphoresis, fatigue, fever, headaches, joint swelling, myalgias, nausea, neck pain, numbness, rash, sore throat, swollen glands, urinary symptoms, vertigo, visual change, vomiting or weakness. Nothing aggravates the symptoms. She has tried nothing for the symptoms. The treatment provided no relief. PAST MEDICAL HISTORY Diagnosis Date Absence of menstruation Amenorrhea prior to 2019 Hyperlipemia PAST SURGICAL HISTORY Procedure Laterality Date NONE ALLERGIES Patient has no known allergies. MEDICATIONS prental multivitamin ( VITAMIN) 27 mg iron- 800 mcg tablet q 24 HR. ciprofloxacin HCl (CILOXAN) 0.3 % ophthalmic solution Use 1-2 drops inside both lower eyelid(s) every 2 hours while awake for 2 days, then 1-2 drops every 4 hours for next 5 days. FAMILY HISTORY Problem Relation Age of Onset other (Gallbladder cancer) Mother 68 other (als) Father 66 Hyperlipidemia Father Colon Cancer Maternal Grandmother Diabetes Maternal Grandfather Hypertension Paternal Grandfather Diabetes Paternal Grandfather Type 2 Heart Attack Paternal Grandfather No Known Problems Son No Known Problems Son Diabetes Maternal Aunt Celiac Disease Maternal Aunt Social History Tobacco Use Smoking status: Never Smokeless tobacco: Never Vaping Use Vaping Use: Never used Substance Use Topics Alcohol use: Yes Comment: 1-2 drinks per month Drug use: Never Review of Systems Constitutional: Negative for chills, diaphoresis, fatigue and fever. HENT: Positive for congestion and rhinorrhea. Negative for ear pain, postnasal drip, sinus pressure, sinus pain and sore throat. Eyes: Positive for photophobia, pain, discharge, redness and itching. Negative for visual disturbance. Respiratory: Positive for cough. Negative for apnea, choking and chest tightness. Cardiovascular: Negative for chest pain. Gastrointestinal: Negative for abdominal pain, anorexia, change in bowel habit, nausea and vomiting. Musculoskeletal: Negative for arthralgias, joint swelling, myalgias and neck pain. Skin: Negative for color change, pallor and rash. Allergic/Immunologic: Negative for environmental allergies, food allergies and immunocompromised state. Neurological: Negative for dizziness, vertigo, facial asymmetry, weakness, light-headedness, numbness and headaches. Hematological: Negative for adenopathy. Does not bruise/bleed easily. Psychiatric/Behavioral: Negative for agitation and behavioral problems. Objective BP 100/65 Pulse 64 Temp 36.2 ?C (97.2 ?F) Resp 18 Wt 61 kg (134 lb 7.7 oz) LMP 08/23/2023 (Approximate) SpO2 100% Yes BMI 23.08 kg/m? Physical Exam Vitals and nursing note reviewed. Constitutional: General: She is not in acute distress. Appearance: Normal appearance. She is normal weight. She is not ill-appearing, toxic-appearing or diaphoretic. HENT: Head: Normocephalic and atraumatic. Right Ear: Ear canal and external ear normal. Left Ear: Ear canal and external ear normal. Nose: Rhinorrhea present. No congestion. Mouth/Throat: Mouth: Mucous membranes are moist. Pharynx: No oropharyngeal exudate or posterior oropharyngeal erythema. Eyes: General: Right eye: No discharge. Left eye: No discharge. Extraocular Movements: Extraocular movements intact. Pupils: Pupils are equal, round, and reactive to light. Comments: Vision grossly intact OD injected +marginal eyelid debris Tetracaine and Fluorescein with no uptake. NO FB noted. EOM intact Cardiovascular: Rate and Rhythm: Normal rate and regular rhythm. Pulses: Normal pulses. Heart sounds: Normal heart sounds. No murmur heard. No friction rub. Pulmonary: Effort: Pulmonary effort is normal. No respiratory distress. Breath sounds: Normal breath sounds. No stridor. No wheezing, rhonchi or rales. Chest: (more content not included)... [facility] 08-23-2023 History of Present illness Narrative This note was created using [employer]. Subjective Annia Bella is a 38 year old female. 38 year old female with no PMH presents for eye complaints. Acute onset this morning. Right eye States she woke up with discomfort +crusted +redness Denies loss of vision. Denies blurred vision ?? Feeling of FB maybe a couple times she had that feeling. Denies presently She does have URI sx of cough and congestion. Her child was recently treated for conjunctivitis. Wears corrective lens and contacts. Last eye appt Apr 2022 The history is provided by the patient. No speech and language assistant was used. Eye Problem This is a new problem. The current episode started today. The problem occurs constantly. The problem has been unchanged. Associated symptoms include congestion and coughing. Pertinent negatives include no abdominal pain, anorexia, arthralgias, change in bowel habit, chest pain, chills, diaphoresis, fatigue, fever, headaches, joint swelling, myalgias, nausea, neck pain, numbness, rash, sore throat, swollen glands, urinary symptoms, vertigo, visual change, vomiting or weakness. Nothing aggravates the symptoms. She has tried nothing for the symptoms. The treatment provided no relief. PAST MEDICAL HISTORY Diagnosis Date Absence of menstruation Amenorrhea prior to 2019 Hyperlipemia PAST SURGICAL HISTORY Procedure Laterality Date NONE ALLERGIES Patient has no known allergies. MEDICATIONS prental multivitamin ( VITAMIN) 27 mg iron- 800 mcg tablet q 24 HR. ciprofloxacin HCl (CILOXAN) 0.3 % ophthalmic solution Use 1-2 drops inside both lower eyelid(s) every 2 hours while awake for 2 days, then 1-2 drops every 4 hours for next 5 days. FAMILY HISTORY Problem Relation Age of Onset other (Gallbladder cancer) Mother 68 other (als) Father 66 Hyperlipidemia Father Colon Cancer Maternal Grandmother Diabetes Maternal Grandfather Hypertension Paternal Grandfather Diabetes Paternal Grandfather Type 2 Heart Attack Paternal Grandfather No Known Problems Son No Known Problems Son Diabetes Maternal Aunt Celiac Disease Maternal Aunt Social History Tobacco Use Smoking status: Never Smokeless tobacco: Never Vaping Use Vaping Use: Never used Substance Use Topics Alcohol use: Yes Comment: 1-2 drinks per month Drug use: Never Review of Systems Constitutional: Negative for chills, diaphoresis, fatigue and fever. HENT: Positive for congestion and rhinorrhea. Negative for ear pain, postnasal drip, sinus pressure, sinus pain and sore throat. Eyes: Positive for photophobia, pain, discharge, redness and itching. Negative for visual disturbance. Respiratory: Positive for cough. Negative for apnea, choking and chest tightness. Cardiovascular: Negative for chest pain. Gastrointestinal: Negative for abdominal pain, anorexia, change in bowel habit, nausea and vomiting. Musculoskeletal: Negative for arthralgias, joint swelling, myalgias and neck pain. Skin: Negative for color change, pallor and rash. Allergic/Immunologic: Negative for environmental allergies, food allergies and immunocompromised state. Neurological: Negative for dizziness, vertigo, facial asymmetry, weakness, light-headedness, numbness and headaches. Hematological: Negative for adenopathy. Does not bruise/bleed easily. Psychiatric/Behavioral: Negative for agitation and behavioral problems. Objective BP 100/65 Pulse 64 Temp 36.2 C (97.2 F) Resp 18 Wt 61 kg (134 lb 7.7 oz) LMP 08/23/2023 (Approximate) SpO2 100% Yes BMI 23.08 kg/m Physical Exam Vitals and nursing note reviewed. Constitutional: General: She is not in acute distress. Appearance: Normal appearance. She is normal weight. She is not ill-appearing, toxic-appearing or diaphoretic. HENT: Head: Normocephalic and atraumatic. Right Ear: Ear canal and external ear normal. Left Ear: Ear canal and external ear normal. Nose: Rhinorrhea present. No congestion. Mouth/Throat: Mouth: Mucous membranes are moist. Pharynx: No oropharyngeal exudate or posterior oropharyngeal erythema. Eyes: General: Right eye: No discharge. Left eye: No discharge. Extraocular Movements: Extraocular movements intact. Pupils: Pupils are equal, round, and reactive to light. Comments: Vision grossly intact OD injected +marginal eyelid debris Tetracaine and Fluorescein with no uptake. NO FB noted. EOM intact Cardiovascular: Rate and Rhythm: Normal rate and regular rhythm. Pulses: Normal pulses. Heart sounds: Normal heart sounds. No murmur heard. No friction rub. Pulmonary: Effort: Pulmonary effort is normal. No respiratory distress. Breath sounds: Normal breath sounds. No stridor. No wheezing, rhonchi or rales. Chest: Chest wall: No tenderness. Abdominal: General: Abdomen is flat. There is no distension. Palpations: Abdomen is soft. There is no mass. Tenderness: There is no abdominal tenderness. There is no right CVA tenderness, left CVA tenderness, guarding or rebound. Hernia: No hernia is present. Musculoskeletal: General: No swelling, tenderness, deformity or signs of injury. Normal range of motion. Cervical back: Normal range of motion and neck supple. No rigidity. Right lower leg: No edema. Left lower leg: No edema. Lymphadenopathy: Cervical: Cervical adenopathy present. Skin: General: Skin is warm and dry. Capillary Refill: Capillary refill takes less than 2 seconds. Coloration: Skin is not jaundiced or pale. Findings: No bruising, erythema, lesion or rash. Neurological: General: No focal deficit present. Mental Status: She is alert and oriented to person, place, and time. Cranial Nerves: No cranial nerve deficit. Sensory: No sensory deficit. Motor: No weakness. Coordination: Coordination normal. Gait: Gait normal. Psychiatric: Mood and Affect: Mood normal. Behavior: Behavior normal. Thought Content: Thought content normal. Judgment: Judgment normal. Assessment and Plan ASSESSMENT/PLAN: 1. Conjunctivitis of right eye, unspecified conjunctivitis type - ICD9: 372.30, ICD10: H10.9 (primary diagnosis) Acute onset today No red flags Child recently treated for conjunctivitis - see medication orders - course and contagiousness issues discussed, including hand washing. - Instructed to call if high fever, development of periorbital redness or swelling, eye pain, visual changes, concerns or if symptoms persist. 2. URI, acute - ICD9: 465.9, ICD10: J06.9 - Discussed viral etiology and rationale for treatment. - Symptomatic treatment with prn analgesia - Supportive care with fluids and rest - The patient may also use OTC cough and cold meds as needed and nasal saline gtts and suction prn. - Follow up in 3-5 days if symptoms persist or sooner if worsening of symptoms Dulce Maria Houser APRN.ELECTRONIC PAGINATION SYSTEM OPERATOR documented in this encounter [facility] 07-06-2023 Miscellaneous Notes Detailed VM left on pt's identified voicemail of information below. Alice Villarreal LPN Patient telephoned, no answer. Message left to call office back for update. Jasmina Salvador LPN Attempted to reach pt by phone without success. Mailbox is full. Alice Villarreal LPN Her LDL is down below 190 with improved diet. I will remove the lipitor from her med list and would have her continue with diet as requested. Pt given results below. Pt reports she never started Lipitor. She is watching what she eats. She wants to continue what she is doing. Alice Villarreal LPN ----- Message from Jairo Romero MD sent at 06/29/2023 2:37 PM EST ----- Cholesterol level improving on Lipitor 40 mg daily, but is still high. If she is tolerating 40 mg dosage without side effects, I would recommend increasing dosage to 80 mg daily. If agreeable, will send rx to requested pharmacy. documented in this encounter [facility] 03-20-2023 Note HNO ID: [id number] Author: Jairo Romero MD Service: ? Author Type: Physician Type: Progress Notes Filed: 03/20/2023 7:41 PM Note Text: Chief Complaint Patient presents with: Physical HPI Annia Bella is a 37 year old female who presents here today for Above Complaints. Patient without complaints. Total cholesterol and LDL up from last check 2 years ago with LDL >190. States that she has not been following low cholesterol diet. Does have family history of high cholesterol with father. Last pap smear and HPV unknown, but believes was wihtin the last [address] Small for 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 with appointment in July. 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 Refusing COVID vaccine today. Past medical history, appointments, medications, allergies reviewed. Previous Medical History PAST MEDICAL HISTORY Diagnosis Date Absence of menstruation Amenorrhea prior to 2019 Hyperlipemia Previous Surgical History PAST SURGICAL HISTORY Procedure Laterality Date NONE Family History FAMILY HISTORY Problem Relation Age of Onset other (Gallbladder cancer) Mother 68 other (als) Father 66 Colon Cancer Maternal Grandmother Diabetes Maternal Grandfather Hypertension Paternal Grandfather Diabetes Paternal Grandfather Type 2 Heart Attack Paternal Grandfather No Known Problems Son No Known Problems Son Diabetes Maternal Aunt Celiac Disease Maternal Aunt Patient Allergies ALLERGIES No Known Allergies Current Medications Current Outpatient Medications on File Prior to Visit Medication Sig prental multivitamin ( VITAMIN) 27 mg iron- 800 mcg tablet q 24 HR. No current facility-administered medications on file prior to visit. Social History Social History Tobacco Use Smoking status: Never Smokeless tobacco: Never Substance Use Topics Alcohol use: Yes Comment: 1-2 drinks per month Drug use: Never Review of Symptoms REVIEW OF SYSTEMS GENERAL: No weight loss, malaise or fevers HEENT: Negative for frequent or significant headaches, No changes in hearing or vision, no nose bleeds or other nasal problems NECK: Negative for lumps, goiter, pain and significant neck swelling RESPIRATORY: Negative for cough, hemoptysis, wheezing, COPD, dyspnea or shortness of breath CARDIOVASCULAR: Negative for chest pain, leg swelling, hypertension, CHF or palpitations GI: No nausea, vomiting, or diarrhea : No history of dysuria, frequency or incontinence 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: Negative for abnormal vaginal bleeding, abnormal vaginal discharge MUSCULOSKELETAL: Negative for joint pain or swelling, back pain or muscle pain SKIN: Positive for dry skin on knees PSYCH: Negative for sleep disturbance, mood disorder and recent psychosocial stressors HEMATOLOGY/LYMPHOLOGY: Negative for prolonged bleeding, bruising easily or swollen nodes ENDOCRINE: Negative for cold or heat intolerance, polyuria, polydipsia and goiter NEURO: No history of headaches, syncope, paralysis, seizures or tremors EXAM: BP 106/66 Pulse 64 Resp 16 Wt 61.2 kg (135 lb) LMP 12/12/2022 SpO2 98% Yes BMI 23.17 kg/m? General Appearance: Well appearing, alert, in no acute distress, well-hydrated, well nourished.. Skin: Dry skin over knees. Possible early eczema rash. 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 Head: Normocephalic, no masses, lesions, tenderness or abnormalities. Eyes: Anicteric sclera. Pupils are equally round and reactive to light. Extraocular movements are intact. . Ears: External ears normal, canals clear. Nose/Sinuses: Nares normal, septum midline, mucosa normal, no drainage or sinus tenderness. Oropharynx: Lips, mucosa, and tongue normal, teeth and gums normal, oropharynx normal. Neck: Supple, no adenopathy; thyroid symmetric, normal size, no bruits. Lungs: Lungs clear to auscultation. No wheezing, rhonchi, rales.. Heart: RRR without murmur, gallop, or rubs. No ectopy. Abdomen: Normal abdominal exam, Abdomen soft, non-tender. Bowel sounds normal. No masses, organomegaly. Extremities: No deformities, edema, skin discoloration, clubbing or cyanosis. Good capillary refill. Peripheral Pulses: Normal. Neurologic: Gait normal. Reflexes normal and symmetric. Sensation grossly intact.. Lymph Nodes: No cervical lymphadenopathy and No supraclavicular lymphadenopathy. Health Maintenance List Hepatitis C Screening Never done HIV Screening Never done Pap Testing Never done HPV Testing Never done Influenza Vaccine(1) due on 01/02/2023 Covid-19 Vaccine(3 - 2022- season) due on 01/02/2023 DTaP,Tdap,Td Vaccine(9 - Td or Tdap) due on 04/07/2032 Hepatitis B Vaccine Completed Depression Assessment Completed HPV Vaccine Aged Out Data reviewed Component Latest Ref Rng AND Units 03/13/2023 WBC 3.70 - 11.00 k/uL 6.76 RBC 3.90 - 5.20 m/uL 4.47 Hemoglobin 11.5 - 15.5 g/dL 13.0 Hematocrit 36.0 - 46.0 % 40.1 MCV 80.0 - 100.0 fL 89.7 MCH 2 (more content not included)... [facility] 12-26-2022 Note HNO ID: [id number] Author: Jairo Romero MD Service: ? Author Type: Physician Type: Progress Notes Filed: 12/26/2022 10:45 AM Note Text: Chief Complaint Patient presents with: Establish Care: Wellness visit paperwork HPI Annia Bella is a 37 year old female who presents here today for Above Complaints.. Previous PCP Dr. Kwabena Robles with last OV 03/2022 for annual wellness exam. Discussed it has been less than 11 months since her last physical and insurance may not cover another so soon. Patient wanting to just establish today and return for annual physical in March. Complaining of skin splotches on her forehead and cheeks which started during her last year and have worsened over the summer. Did have some burning and dry skin over the winter which improved with OTC moisturizer BID. No other rashes otherwise. No change recently. PHQ-2 / Depression screen He in the past two weeks denies having felt down, depressed, hopeless or with little interest or pleasure in doing things. Past medical history, appointments, medications, allergies reviewed. Previous Medical History PAST MEDICAL HISTORY Diagnosis Date Absence of menstruation Amenorrhea prior to 2019 Previous Surgical History PAST SURGICAL HISTORY Procedure Laterality Date NONE Family History FAMILY HISTORY Problem Relation Age of Onset other (Gallbladder cancer) Mother other (als) Father Cancer Maternal Grandmother Hypertension Paternal Grandfather Diabetes Paternal Grandfather Type 2 Patient Allergies ALLERGIES No Known Allergies Current Medications Current Outpatient Medications on File Prior to Visit Medication Sig prental multivitamin ( VITAMIN) 27 mg iron- 800 mcg tablet q 24 HR. No current facility-administered medications on file prior to visit. Social History Social History Tobacco Use Smoking status: Never Smokeless tobacco: Never Substance Use Topics Alcohol use: No Drug use: No Review of Symptoms REVIEW OF SYSTEMS GENERAL: No weight loss, malaise or fevers RESPIRATORY: Negative for cough, hemoptysis, wheezing, COPD, dyspnea or shortness of breath CARDIOVASCULAR: Negative for chest pain, leg swelling, hypertension, CHF or palpitations GI: No nausea, vomiting, or diarrhea SKIN: See HPI EXAM: BP 90/60 Pulse (!) 58 Resp 16 Ht 162.6 cm (5' 4 ) Wt 62.1 kg (137 lb) LMP (LMP Unknown) SpO2 99% Yes BMI 23.52 kg/m? General Appearance: Well appearing, alert, in no acute distress, well-hydrated, well nourished. Skin: Melasma on forehead and cheeks bilaterally. Lungs: Lungs clear to auscultation. No wheezing, rhonchi, rales.. Heart: RRR without murmur, gallop, or rubs. No ectopy. Extremities: No deformities, edema, skin discoloration, clubbing or cyanosis. Good capillary refill. Health Maintenance List HEPATITIS C SCREENING Never done HIV SCREENING Never done PAP TESTING Never done HPV TESTING Never done COVID-19 VACCINE(3 - Booster for Roxana series) due on 05/16/2021 DEPRESSION ASSESSMENT Never done INFLUENZA(1) due on 01/02/2023 DTAP,TDAP,TD(8 - Td or Tdap) due on 11/09/2029 HEPATITIS B Completed HPV VACCINE Aged Out ASSESSMENT/PLAN: 1. Melasma - ICD9: 709.09, ICD10: L81.1 (primary diagnosis) Discussed 2/2 recent and usually resolves with the first year after . Patient not wanting referral for chemical treatment or phototherapy at this time. Will call if not improving as expected. Information given for home. 2. Encounter to establish care - ICD9: V65.8, ICD10: Z76.89 History updated today. Will obtain labs prior to physical in March. - CBC + DIFF - COMP METABOLIC PANEL - LIPID PANEL BASIC 3. Depression screening - ICD9: V79.0, ICD10: Z13.31 - DEPRESSION SCREENING/ASSESSMENT I spent a total of 30 minutes on the date of the service which included preparing to see the patient, [id number] patient care, completing clinical documentation, obtaining and/or reviewing separately obtained history, performing a medically appropriate examination, counseling and educating the patient/family/caregiver, and ordering medications, tests, or procedures. Jairo Romero MD [facility] 12-26-2022 History of Present illness Narrative Chief Complaint Patient presents with: Establish Care: Wellness visit paperwork HPI Annia Bella is a 37 year old female who presents here today for Above Complaints.. Previous PCP Dr. Kwabena Robles with last OV 03/2022 for annual wellness exam. Discussed it has been less than 11 months since her last physical and insurance may not cover another so soon. Patient wanting to just establish today and return for annual physical in March. Complaining of skin splotches on her forehead and cheeks which started during her last year and have worsened over the summer. Did have some burning and dry skin over the winter which improved with OTC moisturizer BID. No other rashes otherwise. No change recently. PHQ-2 / Depression screen He in the past two weeks denies having felt down, depressed, hopeless or with little interest or pleasure in doing things. Past medical history, appointments, medications, allergies reviewed. Previous Medical History PAST MEDICAL HISTORY Diagnosis Date Absence of menstruation Amenorrhea prior to 2019 Previous Surgical History PAST SURGICAL HISTORY Procedure Laterality Date NONE Family History FAMILY HISTORY Problem Relation Age of Onset other (Gallbladder cancer) Mother other (als) Father Cancer Maternal Grandmother Hypertension Paternal Grandfather Diabetes Paternal Grandfather Type 2 Patient Allergies ALLERGIES No Known Allergies Current Medications Current Outpatient Medications on File Prior to Visit Medication Sig prental multivitamin ( VITAMIN) 27 mg iron- 800 mcg tablet q 24 HR. No current facility-administered medications on file prior to visit. Social History Social History Tobacco Use Smoking status: Never Smokeless tobacco: Never Substance Use Topics Alcohol use: No Drug use: No Review of Symptoms REVIEW OF SYSTEMS GENERAL: No weight loss, malaise or fevers RESPIRATORY: Negative for cough, hemoptysis, wheezing, COPD, dyspnea or shortness of breath CARDIOVASCULAR: Negative for chest pain, leg swelling, hypertension, CHF or palpitations GI: No nausea, vomiting, or diarrhea SKIN: See HPI EXAM: BP 90/60 Pulse (!) 58 Resp 16 Ht 162.6 cm (5' 4 ) Wt 62.1 kg (137 lb) LMP (LMP Unknown) SpO2 99% Yes BMI 23.52 kg/m General Appearance: Well appearing, alert, in no acute distress, well-hydrated, well nourished. Skin: Melasma on forehead and cheeks bilaterally. Lungs: Lungs clear to auscultation. No wheezing, rhonchi, rales.. Heart: RRR without murmur, gallop, or rubs. No ectopy. Extremities: No deformities, edema, skin discoloration, clubbing or cyanosis. Good capillary refill. Health Maintenance List HEPATITIS C SCREENING Never done HIV SCREENING Never done PAP TESTING Never done HPV TESTING Never done COVID-19 VACCINE(3 - Booster for Roxana series) due on 05/16/2021 DEPRESSION ASSESSMENT Never done INFLUENZA(1) due on 01/02/2023 DTAP,TDAP,TD(8 - Td or Tdap) due on 11/09/2029 HEPATITIS B Completed HPV VACCINE Aged Out ASSESSMENT/PLAN: 1. Melasma - ICD9: 709.09, ICD10: L81.1 (primary diagnosis) Discussed 2/2 recent and usually resolves with the first year after . Patient not wanting referral for chemical treatment or phototherapy at this time. Will call if not improving as expected. Information given for home. 2. Encounter to establish care - ICD9: V65.8, ICD10: Z76.89 History updated today. Will obtain labs prior to physical in March. - CBC + DIFF - COMP METABOLIC PANEL - LIPID PANEL BASIC 3. Depression screening - ICD9: V79.0, ICD10: Z13.31 - DEPRESSION SCREENING/ASSESSMENT I spent a total of 30 minutes on the date of the service which included preparing to see the patient, [id number] patient care, completing clinical documentation, obtaining and/or reviewing separately obtained history, performing a medically appropriate examination, counseling and educating the patient/family/caregiver, and ordering medications, tests, or procedures. Jairo Rmoero MD documented in this encounter [facility] 12-24-2021 Instructions Dulce Maria Houser APRN.ELECTRONIC PAGINATION SYSTEM OPERATOR - 12/24/2021 12:09 PM EDT Headache, unspecified headache type (primary encounter diagnosis) Viral illness You have been diagnosed with an illness caused by a virus. Antibiotics do not cure viral infections. If given when not needed, antibiotics can be harmful. The treatments described below will help you feel better while your body's own defenses are fighting the virus. General Instructions: Drink extra water and juice. Use a cool mist vaporizer or saline nasal spray to relieve congestion. For Sore throats, use ice chips or sore throat spray; lozenges for older children and adults. Specific Medications: Fever, aches, ear pain: Tylenol 1000 mg every 6 hours or 975 mg every 6 hours Use medicines according to the package instructions or as directed by your healthcare provider. Stop the medication when the symptoms get better. No follow-ups on file. Electronically signed by Dulce Maria Houser APRN.ELECTRONIC PAGINATION SYSTEM OPERATOR at 12/24/2021 12:09 PM EDT documented in this encounter [facility] 12-24-2021 History of Present illness Narrative This note was created using [employer]. Subjective Annia Bella is a 36 year old female. 36 year old female, currently 15 weeks presents with complaints of illness. Acute onset of symptoms was this past . +nausea +headache +body aches +fatigue +chills Currently [address] weeks [address] Kent Has used Tylenol without much relief Denies vaginal bleeding. Denies vaginal discharge. The history is provided by the patient. No speech and language assistant was used. Headache This is a new problem. The current episode started more than 2 days ago. The problem occurs constantly. The problem has not changed since onset.The headache is associated with nothing. Pain location: generalized. The quality of the pain is described as sharp and throbbing. The pain is at a severity of 5/10. The pain is moderate. The pain does not radiate. Associated symptoms include a fever, malaise/fatigue and nausea. Pertinent negatives include no anorexia, no chest pressure, no near-syncope, no orthopnea, no palpitations, no syncope, no shortness of breath and no vomiting. She has tried acetaminophen for the symptoms. The treatment provided mild relief. PAST MEDICAL HISTORY Diagnosis Date Absence of menstruation Amenorrhea PAST SURGICAL HISTORY Procedure Laterality Date NONE ALLERGIES Patient has no known allergies. MEDICATIONS prental multivitamin ( VITAMIN) 27 mg iron- 800 mcg tablet q 24 HR. FAMILY HISTORY Problem Relation Age of Onset Hypertension Paternal Grandfather Diabetes Paternal Grandfather Type 2 Cancer Maternal Grandmother Social History Tobacco Use Smoking status: Never Substance Use Topics Alcohol use: No Drug use: No Review of Systems Constitutional: Positive for fever and malaise/fatigue. Negative for activity change, appetite change, chills and diaphoresis. HENT: Positive for congestion, rhinorrhea, sinus pressure and sinus pain. Respiratory: Negative for apnea, choking, chest tightness and shortness of breath. Cardiovascular: Negative for chest pain, palpitations, orthopnea, leg swelling, syncope and near-syncope. Gastrointestinal: Positive for nausea. Negative for abdominal pain, anorexia, diarrhea and vomiting. Musculoskeletal: Negative for arthralgias and back pain. Skin: Negative for color change, pallor, rash and wound. Allergic/Immunologic: Negative for environmental allergies, food allergies and immunocompromised state. Neurological: Positive for headaches. Negative for dizziness and facial asymmetry. Hematological: Negative for adenopathy. Does not bruise/bleed easily. Psychiatric/Behavioral: Negative for agitation and behavioral problems. Objective BP 110/64 Pulse 84 Temp 37.2 C (99 F) Resp 16 Wt 61.2 kg (135 lb) LMP 11/26/2005 SpO2 99% Physical Exam Vitals and nursing note reviewed. Constitutional: General: She is not in acute distress. Appearance: Normal appearance. She is normal weight. She is not ill-appearing, toxic-appearing or diaphoretic. HENT: Head: Normocephalic and atraumatic. Right Ear: Ear canal and external ear normal. Left Ear: Ear canal and external ear normal. Nose: Nose normal. No congestion or rhinorrhea. Mouth/Throat: Mouth: Mucous membranes are moist. Pharynx: No oropharyngeal exudate or posterior oropharyngeal erythema. Eyes: General: Right eye: No discharge. Left eye: No discharge. Extraocular Movements: Extraocular movements intact. Conjunctiva/sclera: Conjunctivae normal. Pupils: Pupils are equal, round, and reactive to light. Cardiovascular: Rate and Rhythm: Normal rate and regular rhythm. Pulses: Normal pulses. Heart sounds: Normal heart sounds. No murmur heard. No friction rub. Pulmonary: Effort: Pulmonary effort is normal. No respiratory distress. Breath sounds: Normal breath sounds. No stridor. No wheezing, rhonchi or rales. Chest: Chest wall: No tenderness. Abdominal: General: Abdomen is flat. There is no distension. Palpations: Abdomen is soft. There is no mass. Tenderness: There is no abdominal tenderness. There is no right CVA tenderness, left CVA tenderness, guarding or rebound. Hernia: No hernia is present. Musculoskeletal: General: No swelling, tenderness, deformity or signs of injury. Normal range of motion. Cervical back: Normal range of motion and neck supple. No rigidity. Right lower leg: No edema. Left lower leg: No edema. Lymphadenopathy: Cervical: No cervical adenopathy. Skin: General: Skin is warm and dry. Capillary Refill: Capillary refill takes less than 2 seconds. Coloration: Skin is not jaundiced or pale. Findings: No bruising, erythema, lesion or rash. Neurological: General: No focal deficit present. Mental Status: She is alert and oriented to person, place, and time. Cranial Nerves: No cranial nerve deficit. Sensory: No sensory deficit. Motor: No weakness. Coordination: Coordination normal. Gait: Gait normal. Psychiatric: Mood and Affect: Mood normal. Behavior: Behavior normal. Thought Content: Thought content normal. Judgment: Judgment normal. Assessment and Plan ASSESSMENT/PLAN: 1. Headache, unspecified headache type - ICD9: 784.0, ICD10: R51.9 (primary diagnosis) No red flags 15 weeks currently No red flags Hemodynamically stable - UA DIP, URINE (POC)-negative 2. Viral illness - ICD9: 079.99, ICD10: B34.9 - Discussed viral etiology and rationale for treatment. - Symptomatic treatment with prn analgesia - Supportive care with fluids and rest - The patient may also use OTC cough and cold meds as needed, warm salt water gargles, throat lozenges and/or OTC throat spray as needed, and nasal saline gtts and suction prn. - Follow up in 3-5 days if symptoms persist or sooner if worsening of symptoms - COVID WITH FLUA+B, ROUTINE-pending Use Tylenol. Dulce Maria Houser APRN.ALEXANDER documented in this encounter [facility] 12-24-2020 History of Present illness Narrative Annia Bella is a 35 y.o. female who presents with Chief Complaint Skin Lesion; Skin Discoloration HPI Skin Lesion Additional comments: 1. Left cheek raised unchanged #2) abdomen red years unchanged Skin Discoloration Additional comments: Forehead, >1 year, started during , changing in color, untreated. Last edited by Tc Rivera MD on 12/24/2020 10:06 AM. (History) History reviewed. No pertinent past medical history. No past medical history pertinent negatives. Family History Cancer-related family history is negative for Melanoma. Physical Examination The following areas were examined and found to be within normal limits except for the findings mentioned below: face, neck, B upper extremities, back, B lower extremities, scalp, chest, abdomen; Defers examination of feet Pertinent positive PE findings can be found below under each dx. I reviewed and verified the portions of the chief complaint and history documented by the ancillary staff on 12/24/2020. Review of Systems Negative for: other skin complaints Assessment and Plan *Melasma - (chronic illness with exacerbation, progression, poorly controled or SE of tx [M]). Correlation to sun exposure explained. Treatment options and side effects reviewed. Sun protection including the use of a FDA approved broad-spectrum sunscreen with SPF 15 or higher was encouraged. Given a prescription for and she will wait until she is done breast-feeding to start Tri-Polly cream QD x 2-3 months. Side effects including teratogenicty dangers of tank builder helper use explained;. 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 Defers removal. Pertinent PE: red papules abdomen *Intradermal Nevi Benign appearance explained. ABCDE's of melanoma reviewed. Return if changes. Sun protection including the use of a FDA approved broad-spectrum sunscreen with SPF 15 or higher was encouraged. Pertinent PE: uniformly pigmented/skin colored papules left cheek Return in 1 year. Tc Rivera MD 12/24/2020 documented in this encounter [facility] 12-24-2020 Instructions Rach Lopez MA - 12/24/2020 9:33 AM EDT Effective 05/18/2019, all MyChart users will be automatically enrolled in paperless billing in an effort to save our environment by eliminating waste & reduce healthcare costs. A monthly notification will be sent to your e-mail address on file indicating you have a new billing statement available in [employer]. If you prefer to receive paper statements, log into [employer] at [employer] to update your e-mail, text and mail preferences (opting out of paperless billing). Please direct further questions to [employer] at [phone] or [email or web address]. documented in this encounter [facility] Evaluation note Diagnosis Melasma- Primary Other dyschromia [facility] Diagnosis Melasma- Primary Other dyschromia Dermal nevus of left cheek Osborne angioma documented in this encounter [facility] note* Diagnosis Headache, unspecified headache type- Primary Viral illness Unspecified viral infection, in conditions classified elsewhere and of unspecified site documented in this encounter [facility] note* Diagnosis Melasma- Primary Other dyschromia Encounter to establish care Other reasons for seeking consultation Depression screening Screening for depression documented in this encounter [facility] note* Diagnosis Conjunctivitis of right eye, unspecified conjunctivitis type- Primary URI, acute Acute upper respiratory infections of unspecified site documented in this encounter [facility] Summary Purpose Family History No Family History Records FoundNo Family History Records FoundNo Family History Records FoundNo Family History Records FoundNo Family History Records Found Advance Directives No Advanced Directives Records FoundDocuments on File Type Date Recorded Patient Benefits Manager Expl anation Advance Directives and Living Will Hospital Course Note CLINICAL SUMMARY Please take this summary document to your follow up appointments. [facility]. [facility] 01/10/20 11:23 [address] [place]. [address] PATIENT INFORMATION Name: ANNIA BELLA Lakia Address: [address] [place] [id number] Age: 34 Years Phone: [phone] : 1985 12:00 MRN: ([facility])-[id number] Sex: Female Race: White Ethnicity: Not Hispan/Lat Admitted From: Clinic or [facility] Medical Service: Obstetric Nurse Unit/Bed: [facility] (CO) 9F70-24 Admit Date: 01/08/2020 13:46 PCP: Physician, PCP Unknown PHYSICIANS INVOLVED WITH CARE Attending Physicians: Ibeth Gómez MD, Shantel Jacobs - Gynecology, Obstetrics Admitting Physician: Ibeth Gómez MD, Shantel Tafoya Gynecology, Obstetrics Primary Care Physician:Physician, PCP Unknown,Family Practice,,, - Consults: Praneeth MONAE, Zahida - Pediatrics Problems Active (more content not included)... Note Patient: ANNIA BELLA Lakia Roman RN: [facility][id number] Age: 34 years Sex: Female : 1985 Associated Diagnoses: None Author: Ibeth Gómez MD, Shantel Jacobs Chief Complaint Status post Normal spontaneous vaginal delivery. Health Status Allergies Allergic Reactions (Selected) NKA History of Present Illness History of Present Illness Patient is: day 2. General: no complaints. Pain is in: excellent control. Bleeding is: decreasing. telemed rounding, pt doing well Physical Examination Last Charted Vital Signs Temperature: 98.3 (01/08 19:33) Pulse: 69 (01/08 19:33) Respiration: 16 (01/08 19:33) BP: 96/64 (01/08 19:33) Pulse Ox: Not Charted Oxygen Delivery: Not Charted O2 Device Flow: Pain Score: 0 (01/08 21:00) Intake and Output Intake and Output (Previous 24 Hrs) I and O Summary Begin date: 01/08 08:21 End date: 01/09 08:21 24 Hour Intake: 0.00 Output: 0.00 Balance: 0.00 Last BM: No BM Charted. Exam Vital Signs/Measurements 48 hours : V (more content not included)... Assessments Note Patient: ANNIA BELLA RN: (COL)-[id number] Age: 34 years Sex: Female : 1985 Associated Diagnoses: None Author: Ibeth Gómez MD, Shantel Jacobs Chief Complaint Status post Normal spontaneous vaginal delivery. Health Status Allergies Allergic Reactions (Selected) NKA History of Present Illness History of Present Illness Patient is: day 2. General: no complaints. Pain is in: excellent control. Bleeding is: decreasing. telemed rounding, pt doing well Physical Examination Last Charted Vital Signs Temperature: 98.3 (01/08 19:33) Pulse: 69 (01/08 19:33) Respiration: 16 (01/08 19:33) BP: 96/64 (01/08 19:33) Pulse Ox: Not Charted Oxygen Delivery: Not Charted O2 Device Flow: Pain Score: 0 (01/08 21:00) Intake and Output Intake and Output (Previous 24 Hrs) I and O Summary Begin date: 01/08 08:21 End date: 01/09 08:21 24 Hour Intake: 0.00 Output: 0.00 Balance: 0.00 Last BM: No BM Charted. Exam Vital Signs/Measurements 48 hours : V (more content not included)... Reason for Referral Status Reason Specialty Diagnoses / Procedures Referred By Contact Referred To Contact Authorized Specialty Services Required/Patien t's Best Interest Dermatology Diagnoses Tala Lugo MD [address] [place] [phone] NicoleTc MD [address] [place] [phone] Health Concerns Infection Onset Date Last Indicated Resolved Time COVID-19 Rule-Out 12/24/2021 12/24/2021 Additional Source Comments INFORMATION SOURCE (unrecogn ized section and content) DATE CREATED AUTHOR 01/10/2020 [facility] DATE CREATED AUTHOR AUTHOR'S ORGANIZ ATION 10/27/2020 [facility] DATE CREATED AUTHOR AUTHOR'S ORGANIZ ATION 12/24/2020 [facility] DATE CREATED AUTHOR AUTHOR'S ORGANIZ ATION 05/31/2022 [facility] DATE CREATED AUTHOR AUTHOR'S ORGANIZ ATION 08/23/2023 [facility] Reason for Visit (unrecogniz ed section and content) Reason Comments Skin Lesion 1. Left cheek raised unchanged #2) abdomen red years unchanged Skin Discoloration Forehead, >1 year, s tarted during , changing in color, untreated. Specialty Diagnoses / Procedures Referred By Contcory [facility] Referred To Contact Dermatology Diagnoses Melasma Tala Knox MD [address] [facility] [address] [place] [address] NicoleTc marrufo MD [address] [place] [id number] Referral ID Status Reason Start Date Expiration Date V isits Requested Visits Authorized [id number] Closed Specialty Services Required/Magalis ent's Best Interest 10/26/2020 10/26/2021 1 1 Reason Comments Headache nasal drip, chills, cough, x 5 days, increased x 3 days Reason Comments Establish Care Wellness visit paper work Reason Comments Results Reason Comments Eye Problem R eye redness swelli ng crust this am Care Teams (unrecognized sec tion and content) Grade Checker Relationship Specialty Start Date End Date Tala Knox MD [address] [facility] [address] [place], [place] [id number] PCP - General Internal Medicine 11/23/20 Grade Checker Relationship Specialty Start Date End Date Pcp, No PCP - General 11/16/21 06/03/22 Grade Checker Relationship Specialty Start Date End Date Jairo Romero MD [address] [place] [address] PCP - General Family Medicine 12/26/22 Grade Checker Relationship Specialty Start Date End Date Jairo Romeor MD [address] [place] [address] PCP - General Family Medicine 12/26/22 Grade Checker Relationship Specialty Start Date End Date Jairo Romero MD [address] [place] [address] PCP - General Family Medicine 12/26/22 Source Comments (unrecognize d section and content) In the event this informatio n is protected by the Federal Confidentiality of Alcohol and Drug Abuse Patient Records regulations: The Federal rules restrict any use of the information to criminally investigate or prosecute any alcohol or drug abuse patient.[facility] the event this information is protected by the Federal Confidentiality of Alcohol and Drug Abuse Patient Records regulations: The Federal rules restrict any use of the information to criminally investigate or prosecute any alcohol or drug abuse patient.[facility] the event this information is protected by the Federal Confidentiality of Alcohol and Drug Abuse Patient Records regulations: The Federal rules restrict any use of the information to criminally investigate or prosecute any alcohol or drug abuse patient.[facility] the event this information is protected by the Federal Confidentiality of Alcohol and Drug Abuse Patient Records regulations: The Federal rules restrict any use of the information to criminally investigate or prosecute any alcohol or drug abuse patient.[facility] FOR RECORDS PERTAINING TO PATIENTS WHO ARE OR HAVE BEEN ENROLLED IN A CHEMICAL DEPENDENCY/SUBSTANCEABUSE PROGRAM, SOME INFORMATION MAY BE OMITTED. This clinical summary was aggregated from multiple sources. Caution should be exercised in using it in the provision of clinical care. This summary normalizes information from multiple sources, and as a consequence, information in this document may materially change the coding, format and clinical context of patient data. In addition, data may be omitted in some cases. CLINICAL DECISIONS SHOULD BE BASED ON THE PRIMARY CLINICAL RECORDS. [facility] [employer] [facility]. provides no warranty or guarantee of the accuracy or completeness of information in this document.
[2024-02-24 12:19] LABS: Absolute Lymphocyte Count 2.59 X10^3/uL (0.83-4.51); Absolute Neutrophil Count 3.3 X10^3/uL (2.0-7.7); Basophil# 0.05 X10^3/uL; Basophil% 0.8 % (0-1); Eosinophil# 0.12 X10^3/uL; Eosinophils% 1.8 % (0-5); Hematocrit 40.4 % (37-47); Hemoglobin 12.8 g/dL (12.0-15.0); Lymphocyte # 2.59 X10^3/ul (0.83-4.51); Lymphocyte % 39.3 % (19-41); Mean Corp Hgb Conc 31.7 g/dL (32-36); Mean Corpuscular Hgb 28.5 pg (27.0-32.0); Mean Platelet Vol. 11.9 fl (6.2-12.0); Monocyte# 0.56 X10^3/uL; Monocyte% 8.5 % (0-10); NRBC Flagged by Analyzer 0 % (0-5); Neutrophil # 3.26 X10^3/uL (2.7-7.7); Neutrophil % 49.4 % (47-70); Platelet Count 296 K/mm3 (150-450); RBC Distribution Width CV 12.9 % (11.6-14.6); Red Blood Count 4.49 M/mm3 (4.2-5.4); White Blood Count 6.6 K/mm3 (4.4-11.0)
[2024-02-24 12:40] LABS: T3 Total - Triiodothyronine 0.92 ng/mL (0.6-1.81); Vitamin B12 716 pg/mL (211-911)
[2024-02-24 12:56] LABS: ALB/GLOB Ratio 1.2 RATIO (0.9-2.4); AST(SGOT) 13 U/L (15-37); Alanine Aminotransfer ALT/SGPT 23 U/L (13-56); Albumin, Serum 4.3 g/dL (3.2-5.0); Alkaline Phosphatase 42 U/L (45-117); Anion Gap 4 (5-15); BUN 16 mg/dL (7-18); BUN/Creat Ratio 21.3 RATIO (10-20); Calcium,Total 9.3 mg/dL (8.5-10.1); Chloride 107 mmol/L (98-107); Cholesterol 265 mg/dL (200); Creatinine, Serum 0.75 mg/dL (0.55-1.02); EST Glomerular Filtration Rate 92 mL/min (>60); Est Glom Filt Rate - Afr Amer 111 mL/min (>60); Globulin 3.5 g/dL (2.2-4.2); Glucose 89 mg/dL (74-106); High Density Lipoprotein 77 mg/dL; Potassium 3.9 mmol/L (3.5-5.1); Protein, Total 7.8 g/dL (6.4-8.2); Sodium Level 136 mmol/L (136-145); T4 Free Direct 0.77 ng/dL (0.76-1.46); Triglycerides 58 mg/dL; Very Low Density Lipoprotein 12 mg/dL (5-40)
== END | disposition home or self-care (01) ==
LOC: BIMLAB 09:09
PROVIDERS: PCP Internal Medicine; Referring Provider Internal Medicine; Visit Provider Internal Medicine
DX: R53.83 Other fatigue (principal); E01.0 Iodine-deficiency related diffuse (endemic) goiter
CPT/HCPCS: 36415; 80053; 80061; 82306; 82607; 84439; 84443; 84480; 85025

== ENCOUNTER → 2024-03-09 | Outpatient (CLI) | payer OTHER, SELFPAY ==
--- NOTE | 2024-03-09 15:59 | US_ITS ---
STUDY: THYROID ULTRASOUND REASON FOR EXAM: Female, 38 years old. Enlarged thyroid TECHNIQUE: Ultrasound evaluation of the thyroid was performed with real-time and static haney-scale imaging. COMPARISON: None. FINDINGS: RIGHT LOBE: The right lobe of the thyroid gland is enlarged and measures 5.2 cm x 1.2 cm x 0.9 cm. There is a homogeneous echotexture. There is a 2.4 cm colloid cyst in the posterior aspect of the upper pole of the right lobe. LEFT LOBE: The left lobe of the thyroid gland measures 4.4 cm x 1.2 cm x 0.6 cm. There is a homogeneous echotexture. There is a 2 mm x 2 mm x 2 mm colloid cyst in the lower inferior aspect. ISTHMUS: The isthmus measures 1.3 mm. The regional lymph nodes are normal. US/Thyroid IMPRESSION: Tiny colloid cysts as described. Yearly follow-up recommended. Electronically Signed: Santo Rowe MD at 14:30 EST ,
== END | disposition home or self-care (01) ==
LOC: US 15:57
PROVIDERS: PCP Internal Medicine; Referring Provider Internal Medicine; Visit Provider Internal Medicine
DX: E01.0 Iodine-deficiency related diffuse (endemic) goiter (principal)
CPT/HCPCS: 76536

== ENCOUNTER → 2024-06-03 | Outpatient (CLI) | payer OTHER, SELFPAY ==
[2024-06-03 13:02] LABS: Absolute Lymphocyte Count 2.33 X10^3/uL (0.83-4.51); Absolute Neutrophil Count 8.5 X10^3/uL (2.0-7.7); Basophil# 0.04 X10^3/uL; Basophil% 0.3 % (0-1); Eosinophil# 0.07 X10^3/uL; Eosinophils% 0.6 % (0-5); Hematocrit 36.7 % (37-47); Hemoglobin 12.1 g/dL (12.0-15.0); Lymphocyte # 2.33 X10^3/ul (0.83-4.51); Lymphocyte % 20.1 % (19-41); Mean Corpuscular Hgb 29.4 pg (27.0-32.0); Mean Corpuscular Volume 89.1 fL (81-99); Mean Platelet Vol. 11.1 fl (6.2-12.0); Monocyte# 0.64 X10^3/uL; Monocyte% 5.5 % (0-10); NRBC Flagged by Analyzer 0 % (0-5); Neutrophil # 8.46 X10^3/uL (2.7-7.7); Neutrophil % 73.2 % (47-70); Platelet Count 309 K/mm3 (150-450); RBC Distribution Width CV 13.3 % (11.6-14.6); RBC Distribution Width SD 43.8 fl (35.1-43.9); Red Blood Count 4.12 M/mm3 (4.2-5.4); White Blood Count 11.6 K/mm3 (4.4-11.0)
[2024-06-04 12:35] LABS: HIV - WCH Non-Reactive (Nonreactive); Hepatitis B Surface Antigen Non-Reactive (Nonreactive); Hepatitis C Antibody Non-Reactive (Nonreactive); Rubella IgG Reactive (Nonreactive); Syphilis Antibodies Non-reactive
[2024-06-06 20:07] LABS: Chlamydia By Nucleic Acid AMP Negative (Negative); Gonococcus By Nucleic Acid AMP Negative (Negative)
== END | disposition home or self-care (01) ==
PROVIDERS: PCP Internal Medicine; Referring Provider Registered Nurse; Visit Provider Registered Nurse
DX: O09.521 Supervision of elderly multigravida, first trimester (principal); Z3A.00 Weeks of gestation of pregnancy not specified
CPT/HCPCS: 36415; 85025; 86703; 86762; 86780; 86803; 86850; 86900; 86901; 87086; 87340; 87491; 87591

== ENCOUNTER → 2024-08-31 | Outpatient (CLI) | payer OTHER, SELFPAY ==
[2024-08-31 12:11] LABS: Absolute Lymphocyte Count 2.06 X10^3/uL (0.83-4.51); Absolute Neutrophil Count 7.9 X10^3/uL (2.0-7.7); Basophil# 0.04 X10^3/uL; Basophil% 0.4 % (0-1); Eosinophil# 0.11 X10^3/uL; Hematocrit 35.2 % (37-47); Hemoglobin 11.5 g/dL (12.0-15.0); Lymphocyte # 2.06 X10^3/ul (0.83-4.51); Lymphocyte % 18.9 % (19-41); Mean Corp Hgb Conc 32.7 g/dL (32-36); Mean Corpuscular Hgb 30.3 pg (27.0-32.0); Mean Corpuscular Volume 92.9 fL (81-99); Monocyte# 0.73 X10^3/uL; Monocyte% 6.7 % (0-10); NRBC Flagged by Analyzer 0 % (0-5); Neutrophil % 72.4 % (47-70); Platelet Count 260 K/mm3 (150-450); RBC Distribution Width CV 12.5 % (11.6-14.6); RBC Distribution Width SD 42.7 fl (35.1-43.9); Red Blood Count 3.79 M/mm3 (4.2-5.4); White Blood Count 10.9 K/mm3 (4.4-11.0)
[2024-08-31 13:08] LABS: Glucose Challenge Gest 1H 50g 84 mg/dL (70-140); HIV Nonreactive (Nonreactive); Syphilis Antibodies Nonreactive (Nonreactive)
== END | disposition home or self-care (01) ==
PROVIDERS: Nurse Practitioner Women's Health; PCP Internal Medicine; Referring Provider Obstetrics & Gynecology; Visit Provider Obstetrics & Gynecology
DX: Z34.82 Encounter for supervision of other normal pregnancy, second trimester (principal)
CPT/HCPCS: 36415; 82950; 85025; 86703; 86780

== ENCOUNTER → 2024-11-02 | Outpatient (CLI) | payer OTHER, SELFPAY ==
--- NOTE | 2024-11-02 15:37 | US_ITS ---
PROCEDURE: OB LIMITED WITH BIOMETRICS 11/02/2024 REASON FOR EXAM: AMA Advanced maternal age TECHNIQUE: OB LIMITED WITH BIOMETRICS FINDINGS Number: 1 Position: Cephalic Placental Position: Left lateral. Placental Abnormalities: Within normal limits, grade 1. DIMENSIONS: Biparietal Diameter: 7.99 cm/32 weeks, 0 days Head Circumference: 30.19 cm/33 weeks, 4 days Abdominal Circumference: 29.59 cm/33 weeks, 4 days Femur Length: 6.34 cm/32 weeks, 6 days ESTIMATED WEIGHT: 2143 g +/-322 g ESTIMATED WEIGHT PERCENTILE (24+ weeks): 11% ESTIMATED GESTATIONAL AGE: Baseline: 34 weeks, 6 days By Ultrasound: 33 weeks, 2 days ESTIMATED DATE OF DELIVERY: Baseline: December 08, 2024 By Ultrasound: December 19, 2024 BIOPHYSICAL ASSESSMENT: Amniotic Fluid Volume: 3.8 cm maximum vertical pocket. Amniotic Fluid Index: 9.5 cm (8-24 cm normal range) Cardiac Motion: 135 (average) Trunk and Limb Motion: Present. MATERNAL ANATOMY: Adnexa: Neither maternal ovary is successfully identified. Cervical Length (if measured): ANATOMY: survey not performed. US/OB Limited With Biometrics IMPRESSION: Live intrauterine fetus of 33 weeks, 2 days gestational age with estimated due date December 19, 2024 Reading Location: [facility]
== END | disposition home or self-care (01) ==
LOC: US 15:36
PROVIDERS: PCP Internal Medicine; Referring Provider Obstetrics & Gynecology; Visit Provider Obstetrics & Gynecology
DX: O09.529 Supervision of elderly multigravida, unspecified trimester (principal); Z3A.33 33 weeks gestation of pregnancy
CPT/HCPCS: 76816

== ENCOUNTER → 2024-11-11 | Outpatient (CLI) | payer OTHER, SELFPAY | END | disposition home or self-care (01) | LOC: LABSPEC 16:18 | PROVIDERS: PCP Internal Medicine; Visit Provider Advanced Practice Midwife | DX: Z34.82 Encounter for supervision of other normal pregnancy, second trimester (principal) | CPT/HCPCS: 87081 ==

== ENCOUNTER → 2024-11-14 | Outpatient (CLI) | payer OTHER, SELFPAY ==
--- NOTE | 2024-11-14 15:38 | US_ITS ---
PROCEDURE: OB LIMITED (NO BIOMETRICS) 11/14/2024 REASON FOR EXAM: BUSTER TECHNIQUE: OB LIMITED (NO BIOMETRICS) COMPARISON: Prior study dated November 02, 2024. FINDINGS Number: 1 Position: Vertex Placental Position: Left lateral and not low-lying. Placental Abnormalities: No evidence of previa. ESTIMATED GESTATIONAL AGE: Baseline: 36 weeks and 4 days ESTIMATED DATE OF DELIVERY: Baseline: December 08, 2024. BIOPHYSICAL ASSESSMENT: Amniotic Fluid Volume: 2.6 cm Amniotic Fluid Index: 8.2 (8-24 cm normal range) Cardiac Motion: (average) Trunk and Limb Motion: Present. MATERNAL ANATOMY: Adnexa: Neither maternal ovary is successfully identified. US/OB Limited (No Biometrics) IMPRESSION: Amniotic fluid index is lower limits of normal. Reading Location: [id number]
--- OUTSIDE RECORDS SUMMARY | 2024-11-14 23:07 | XMS RPT_ITS | CCD ---
Author Organization [facility] CliniSyla Care Team Providers Care Warehouse Distribution Manager Name Role Phone Unavailable Primary Care Provider UnavailSabiha Blanchard MD Primary Care Provider NICOLEKATHY Attending Unavailable SABIHA COOPER Referring Unavailable SABIHA COOPER Primary Care Unavailable Dr. Sheyla Small Attending Provider [phone] Pcp, No Primary Care Provider UnavailDr. Linda Chaudhry Attending Provider [phone] Care Physician, No Primary Primary Care Provider Unavailable Care Physician, No Primary Referring Provider Un available Care Physician, No Primary Primary Care Provider Unavailable Care Physician, No Primary Referring Provider Un available Dr. Sheyla Small Attending Provider Kristen MAIL DISTRIBUTOR, ISHAN Hinojosa Attending Provider [phone] LIMA Murray Attending Provider [phone] Dr. Linda Mcconnell Attending Provider [phone] LIMA Murray Admit Provider [phone] LIMA Murray Other Provider [phone] Jairo Romero MD Primary Care Provider JAIRO ROMERO Attending Unavailab KWABENA Grande Primary Care Unavailable JAIRO ROMERO Primary Care Unavailab JAIRO Maguire Referring Unavailab JAIRO Maguire Primary Care Unavailab JAIRO Maguire Primary Care Unavailab JAIRO Maguire Attending Unavailab JAIRO Maguire Primary Care Unavailab JAIRO Maguire Referring Unavailab KOBE Carlson Attending Unavailable SHEYLA MATHEW Referring Unavailab le ANGEL, YOUSUF G Primary Care Unavailable Angel MONAE, Dr. Hernandez Primary Care Provider [phone] Angel MONAE, Dr. Hernandez Referring Provider Trevor AMATO, Trish Attending Provider [phone] Trevor AMATO, Trish Referring Provider [phone] Santino Polk DO, Dr. Carrion Attending Provider Kristen MAIL DISTRIBUTOR-C, Micaela Attending Provider [phone] Jayesh MONAE, Dr. Mckeon Attending Provider Jayesh MONAE, Dr. Mckeon Referring Provider Abram AMATO, Radha Attending Provider [phone] Angel MONAE, Dr. Hernandez Primary Care Provider 1( [phone] Dr. Yousuf Ortiz MD Referring Provider Angel, Yousuf Primary Care Unavailable Sheyla Small Referring Unavailabl e Sehyla Small Attending Unavailabl e [place], Yousuf Referring Unavailable [place], Yousuf Attending Unavailable [place], Yousuf Primary Care Unavailable [place], Yousuf Primary Care Unavailable Helena Murrayy Referring Unavailable Trish Murray Attending Unavailable Angel, Yousuf Primary Care Unavailable Linda Mcconnell Referring Unavailable Linda Mcconnell Attending Unavailable [place], Yousuf Primary Care Unavailable [place], Yousuf Referring Unavailable Radha Valverde Attending Unavailable Angel, Yousuf Primary Care Unavailable Sheyla Small Attending Unavailabl e [place], Yousuf Referring Unavailable Angel, Yousuf Primary Care Unavailable Sheyla Small Attending Unavailabl e [place], Yousuf Referring Unavailable Angel, Yousuf Primary Care Unavailable [place], Yousuf Referring Unavailable Radha Valverde Attending Unavailable Care Physician, No Primary Referring Unava ilable Care Physician, No Primary Primary Care Unava ilable Angel, Yousuf Attending Unavailable [place], Yousuf Referring Unavailable Trish Murray Attending Unavailable [place], Yousuf Primary Care Unavailable [place], Yousuf Primary Care Unavailable [place], Yousuf Referring Unavailable Sheyla Small Attending Unavailabl e [place], Yousuf Primary Care Unavailable Angel, Yousuf Referring Unavailable Micaela Peterson NP Attending Unavailable [place], Yousuf Referring Unavailable Angel, Yousuf Attending Unavailable [place], Yousuf Primary Care Unavailable Angel, Yousuf Primary Care Unavailable Angel, Yousuf Referring Unavailable Linda Mcconnell Attending Unavailable Angel MONAE, Dr. Hernandez Primary Care Provider Dr. Yousuf Ortiz MD Referring Provider Dr. Sheyla Small DO Attending Provider Dr. Sheyla Small DO Referring Provider Medications Current Medications Medication Drug Class(es) Dates [...] . 30 g 1 12/24/2020 01/23/2021 Active Multivit 83-Ewyy-Udytrh 1-Dha (Pnv-Dha) 27 mg iron-1 mg -300 mg capsule (5 sources) Start: 05-20-2024 Multivit 61-Igdj-Sxdikg 1-Dha (Pnv-Dha) 27 mg iron-1 mg -300 mg capsule Active NMA PO May 20, 2024 1:00am Completed/Discontinued Medications Medication Drug Class(es) Dates Sig (Normalized) Sig (Original) atorvastatin 40 mg oral tablet (1 source) HMG-CoA Reductase Inhibitor Start: 03-20-2023 End: 06-29-2023 take 1 tablet by mouth once daily at bedtime for hyperlipidemia atorvastatin (LIPITOR) 40 mg tablet Take 1 tablet by mouth daily at bedtime. For cholesterol. 90 tablet 0 03/20/2023 06/29/2023 Discontinued Comment on above: Take 1 tablet by pippa th daily at bedtime. For cholesterol. docosahexaenoic acid 200 mg oral capsule (8 sources) Start: 11-21-2021 End: 05-20-2024 Docosahexaenoic Acid ( Dha) 200 mg capsule Discontinued mg PO November 21, 2021 12:00am May 20, 2024 9:24am prental multivitamin ( VITAMIN) 27 mg iron- 800 mcg tablet (4 sources) prental multivit caceres ( VITAMIN) 27 mg iron- 800 mcg tablet q 24 HR. 0 Active Comment on above: q 24 HR. Problems Active Problems Problem Classification Problem Date Documented Date Episodic/Chronic Cardiac and circulatory congenital anomalies (6 sources) Single umbilical artery; Translations: [Congenital absence and hypoplasia of umbilical artery] 06-18-2022 Chronic Comment on above: monthly growth scans and weekly nsts at 36 weeks, 05/29 growth EFW 3167gms 51% Disorders of lipid metabolism (20 sources) Pure hypercholesterolemia, unspecified; Translations: [Hyperlipidemia] Onset: 03-20-2023 10-28-2023 Chronic Comment on above: Trying to control wi th diet alone Headache; including migraine (1 source) Headache; Translations: [Headache, unspecified headache type] Episodic Immunizations and screening for infectious disease (2 sources) Encounter for immunization; Translations: [Encounter for immunization] Onset: 03-20-2023 Episodic Inflammation; infection of eye (except that [...] of skin and subcutaneous tissue] Episodic Other complications of ; puerperium affecting management of mother (6 sources) bowel echogenicity on obstetric ultrasound scan; Translations: [Maternal care for other (suspected) abnormality and damage, not applicable or unspecified] 05-24-2022 Episodic Comment on above: RESOLVED also has di lated stomach. report from [facility] pendingtoxo and cmv ordered NIPT was negative, negative for CF carrier. TORCH negative Other complications of ; puerperium affecting management of mother (1 source) Maternal care for other (suspected) abnormality and damage, not applicable or unspecified; Translations: [Other known or suspected abnormality, not elsewhere classified, affecting management of mother, unspecified as to episode of care or not applicable] Episodic Other complications of (6 sources) Anemia of ; Translations: [Anemia complicating , unspecified trimester] 05-23-2022 Chronic Comment on above: OTC Slow FE daily, Hg-12 Other complications of (7 sources) Anemia complicating , unspecified trimester; Translations: [Anemia of mother, unspecified as to episode of care or not applicable] 04-07-2022 Chronic Other complications of (20 sources) Advanced maternal age ; Translations: [Elderly multigravida, unspecified as to episode of care or not applicable] 08-31-2024 Episodic Comment on above: growth US 36 weeks d iscussed delivery by 40 weeks or increased testing if desired delivery by 41 weeks to reduce medical interventions. Other complications of (1 source) Supervision of elderly multigravida, unspecified trimester; Translations: [Supervision of elderly multigravida, unspecified trimester] Onset: 11-09-2024 Episodic Other complications of (3 sources) Multigravida of advanced maternal age; Translations: [Supervision of elderly multigravida, unspecified trimester] 11-02-2024 Episodic Other and delivery including normal (20 sources) Normal ; Translations: [Encounter for supervision of normal , unspecified, unspecified trimester] Onset: 07-05-2024 Episodic Comment on above: [id number], JAZMIN 12/08/24, surprise CHRISTINA Lopez, Kevin, Terrance PRR , JAZMIN , CHRISTINA Lopez 3yo, Terrance IAL 40+2, boy:Wi nston, LC elects NIPT WITHOUT Gender, Low risk; nl anatomy US GBS Negative, low ri sk NIPT, declined Carrier testing Other skin disorders (3 sources) Chloasma; Translations: [Chloasma] Episodic Other upper respiratory infections (1 source) Acute upper respiratory infection; Translations: [Acute upper respiratory infection, unspecified] 08-23-2023 Episodic Residual codes; unclassified (20 sources) Family history of amyotrophic lateral sclerosis; Translations: [Family history of epilepsy and other diseases of the nervous system] 05-20-2024 Episodic Comment on above: Father- Residual codes; unclassified (1 source) Family history of epilepsy and other diseases of the nervous system; Translations: [Family history of epilepsy and other diseases of the nervous system] Onset: 10-28-2024 Episodic Residual codes; unclassified (1 source) 34 weeks gestation of ; Translations: [34 weeks gestation of ] Onset: 10-28-2024 Episodic Residual codes; unclassified (1 source) 30 weeks gestation of ; Translations: [30 weeks gestation of ] Onset: 09-29-2024 Episodic Residual codes; unclassified (1 source) 25 weeks gestation of ; Translations: [25 weeks gestation of ] Onset: 08-31-2024 Episodic Thyroid disorders (1 source) Iodine-deficiency related diffuse (endemic) goiter; Translations: [Iodine-deficiency related diffuse (endemic) goiter] Onset: 03-25-2024 Chronic Viral infection (1 source) Viral disease; Translations: [Viral infection, unspecified] Episodic Past or Other Problems Problem Classification Problem Date Documented Date Episodic/Chronic Administrative/social admission (3 sources) Patient encounter status; Translations: [Persons encountering health services in other specified circumstances] Onset: 03-13-2023 12-26-2022 Episodic Malaise and fatigue (1 source) Other fatigue; Translations: [Other fatigue] Onset: 03-18-2024 Episodic Other complications of (1 source) Supervision of elderly multigravida, first trimester; Translations: [Supervision of elderly multigravida, first trimester] Onset: 06-17-2024 Episodic Other skin disorders (1 source) Chloasma; Translations: [Melasma] Onset: 03-20-2023 Episodic Other skin disorders (1 source) Xerosis cutis; Translations: [Dry skin dermatitis] Onset: 03-20-2023 Episodic Residual codes; unclassified (1 source) 17 weeks gestation of ; Translations: [17 weeks gestation of ] Onset: 07-05-2024 Episodic Unclassified (6 sources) Spontaneous onset of labor; Translations: [Spontaneous onset of labor] 06-18-2022 Comment on above: Patient presents IAL at termPain management: hypnobirthing GBS negative.Management of any complications: 2 vessel cordI have reviewed the [facility] and made any clinically relevant updates.Dr. Mcconnell updated on POC, admission and exam. co-management for 2 vessel cord Unclassified (7 sources) bowel echogenicity on obstetric ultrasound scan; Translations: [Echogenic bowel of fetus] 05-24-2022 Results Test Name Value Interpretation Reference Range Facility OB Limited With Biometricson 11-02-2024 OB Limited With Biometrics [facility] [address] [place] [address] OB Limited With Biometrics MR#: [id number] Acct: [id number] Name: BRIGID BELLA Rep #: [id number] : 1985 F 39 From: Dimitri Hanson DO PCP: Dr. Yousuf Ortiz MD Status: REG CLI Study: OB Limited With Biometrics Date of Exam: 11/02 Exam# [id number] Ordering Dr: Sheyla Small DO PROCEDURE: OB LIMITED WITH BIOMETRICS 11/02/2024 REASON FOR EXAM: AMA Advanced maternal age TECHNIQUE: OB LIMITED WITH BIOMETRICS FINDINGS Number: 1 Position: Cephalic Placental Position: Left lateral. Placental Abnormalities: Within normal limits, grade 1. DIMENSIONS: Biparietal Diameter: 7.99 cm/32 weeks, 0 days Head Circumference: 30.19 cm/33 weeks, 4 days Abdominal Circumference: 29.59 cm/33 weeks, 4 days Femur Length: 6.34 cm/32 weeks, 6 days ESTIMATED WEIGHT: 2143 g +/-322 g ESTIMATED WEIGHT PERCENTILE (24+ weeks): 11% ESTIMATED GESTATIONAL AGE: Baseline: 34 weeks, 6 days By Ultrasound: 33 weeks, 2 days ESTIMATED DATE OF DELIVERY: Baseline: December 08, 2024 By Ultrasound: December 19, 2024 BIOPHYSICAL ASSESSMENT: Amniotic Fluid Volume: 3.8 cm maximum vertical pocket. Amniotic Fluid Index: 9.5 cm (8-24 cm normal range) Cardiac Motion: 135 (average) Trunk and Limb Motion: Present. MATERNAL ANATOMY: Adnexa: Neither maternal ovary is successfully identified. Cervical Length (if measured): ANATOMY: survey not performed. US/OB Limited With Biometrics IMPRESSION: Live intrauterine fetus of 33 weeks, 2 days gestational age with estimated due date December 19, 2024 [facility] CC: Dr. Yousuf Ortiz MD; Dr. 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: Signed Normal [facility] - Chemistry and C hemistry - challengeOrdered By: Sheyla Polk on 10-28-2024 Glucose Ql (U) Negative [facility] - UrinalysisOrder ed By: Sheyla Polk on 10-28-2024 Protein Ql (U) Negative [facility] Special Education Superintendent Office Visit Reporton 10-28-2024 Special Education Superintendent Office Visit Report [facility] [address], [address] [place] [address] OFFICE VISIT Date of Service: 10/28/24 MR#: [id number] Acct: [id number] Name: BRIGID BELLA Rep #: [id number] : 1985 Provider: Dr. Sheyla Hilton DO Age/Sex: 39/F Location: [facility] Status: Signed Intake Vital Signs 08/31/24 09:09 10/12/24 08:52 10/28/24 13:55 Height 5 ft 5 in 5 ft 5 in 5 ft 5 in Weight: 165 lb 2 oz BMI 27.4 BP 111/69 Intake Visit Reasons: 34 wk ob Destination Specialist Required: No Is patient in pain?: No Allergies No Known Allergies Allergy (Verified 10/28/24 13:54) Medications ???Medication ???Instructions ???Recorded ???Confirmed ???Type multivitamin no.47-iron fum 27 cap PO 05/20/24 10/28/24 History mg-folate no.1 1 mg-dha 300 mg capsule (PNV-DHA) Last Menstrual Period: 03/03/24 Zika: Zika virus screening: Negative : No PFSH PFSH Medical History Spontaneous onset of labor (spontaneous vaginal delivery) Two vessel umbilical cord Supervision of normal Surgical History [place] teeth extracted No pertinent past surgical history Family History Mother Cancer, Onset Age: 68 gallbladder Diabetes pre Hypertension High cholesterol Father FH: ALS (amyotrophic lateral sclerosis), Onset Age: 67 Hypertension High cholesterol Grandmother Celiac disease Maternal Colon cancer Maternal Grandmother Dementia Paternal Grandfather High cholesterol Paternal Hypertension Paternal Heart disease Myocardial infarction Maternal Social History adopted: No household members: spouse and children housing: house number of children: 2 current occupational status: employed current occupation: [employer] current occupational exposures/hazards: No pets and animals: Yes (2) pets and animals: dog(s) history of recent travel: No ([facility] last week, [place] October 23) sexually active: Yes Smoking Status: Never smoker second hand exposure: No alcohol intake: current alcohol intake frequency: a few times a month details: social 1-2 per month- Not while substance use type: does not use well-balanced diet: daily or most days caffeine: Yes Type: coffee Number of servings: 1 eating out: 1-3 times/week during the past year weight has: remained stable what type of physical activity do you participate in: walking and bicycling frequency: 3-4 times per week duration: 15-30 minutes/day lexx/holiness: Restoration seatbelt use: always do you feel safe at home: Yes additional social history: Terrance- Edger Hand History 3 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 Date Name GA/Weeks Outcome Route Bth Weight Infant Gen Labor Lgth Anesthesia Del Locatn Provider FOB Unknown 01/08/20 John 40 live - full term 7# 10oz Male 12 hour s none [place] Dr. Ibeth Carlos 06/17/22 Kevin 40 live - full term 8lbs 1oz Male none [facility] roger Murray CNM Terrance Delivery Date: 06/17/22 Last Updated by: Diandra Truong see problem list for complications HPI 34 wk ob Details: BRIGID BELLA is a 39 year old who presents for routine OB visit. OB Visit JAZMIN Calculator Estimated Delivery Date Method Current WG Current Estimate 12/08/24 LMP (Certain) 34w 1d Expected Delivery Route/Plan Labor Preferences- CB/BF classes: declines labor support person: [] labor intervention preferences: unmedicated pain management options preferred: minimal interventions cut cord/dad catch: [] : [] PP control planned: [] discussed possible routes of delivery and associated risks: [] special requests: [] Specific Issue/Plans Covid status: [] Flu vaccine: [] Tdap vaccine: [] Rhogam: [] LARC form signed: [] Problem list reviewed and updated with the most current plan of care details and appropriate orders placed. Relevant counseling for the gestational age provided. Continue routine care and follow up unless otherwise noted in visit notes/problem list details Initial Weight: 142 lb Date -???-???-???-???-???-? ??-???-???-???-???-??? -???- EGA Weight BP Urine Prot -???-???-???-???-???-? ??-???-???-???-???-??? -???- Glucose FHR FuHt Pres Dilation -???-???-???-???-???-? ??-???-???-???-???-??? -???- Effaced St Vi (more content not included)... Normal [facility] - Chemistry and C hemistry - challengeOrdered By: Sheyla Polk on 10-12-2024 Glucose Ql (U) Negative [facility] - UrinalysisOrder ed By: Sheyla Polk on 10-12-2024 Protein Ql (U) Negative [facility] Special Education Superintendent Office Visit Reporton 10-12-2024 Special Education Superintendent Office Visit Report [facility] [address], [address] [place] [id number] OFFICE VISIT Date of Service: 10/12/24 MR#: [id number] Acct: [id number] Name: BRIGID BELLA Rep #: [id number] : 1985 Provider: Dr. Sheyla Hilton DO Age/Sex: 39/F Location: [facility] Status: Signed Intake Vital Signs 08/03/24 08:46 09/29/24 15:15 10/12/24 08:52 Height 5 ft 5 in 5 ft 5 in 5 ft 5 in Weight: 163 lb 4 oz BMI 27.1 BP 103/62 Intake Visit Reasons: 32wk ob Destination Specialist Required: No Is patient in pain?: No Allergies No Known Allergies Allergy (Verified 10/12/24 08:56) Medications ???Medication ???Instructions ???Recorded ???Confirmed ???Type multivitamin no.47-iron fum 27 cap PO 05/20/24 10/12/24 History mg-folate no.1 1 mg-dha 300 mg capsule (PNV-DHA) Last Menstrual Period: 03/03/24 Zika: Zika virus screening: Negative : No PFSH PFSH Medical History Spontaneous onset of labor (spontaneous vaginal delivery) Two vessel umbilical cord Supervision of normal Surgical History [place] teeth extracted No pertinent past surgical history Family History Mother Cancer, Onset Age: 68 gallbladder Diabetes pre Hypertension High cholesterol Father FH: ALS (amyotrophic lateral sclerosis), Onset Age: 67 Hypertension High cholesterol Grandmother Celiac disease Maternal Colon cancer Maternal Grandmother Dementia Paternal Grandfather High cholesterol Paternal Hypertension Paternal Heart disease Myocardial infarction Maternal Social History adopted: No household members: spouse and children housing: house number of children: 2 current occupational status: employed current occupation: [employer] current occupational exposures/hazards: No pets and animals: Yes (2) pets and animals: dog(s) history of recent travel: No ([facility] last week, [place] October 23) sexually active: Yes Smoking Status: Never smoker second hand exposure: No alcohol intake: current alcohol intake frequency: a few times a month details: social 1-2 per month- Not while substance use type: does not use well-balanced diet: daily or most days caffeine: Yes Type: coffee Number of servings: 1 eating out: 1-3 times/week during the past year weight has: remained stable what type of physical activity do you participate in: walking and bicycling frequency: 3-4 times per week duration: 15-30 minutes/day lexx/holiness: Restoration seatbelt use: always do you feel safe at home: Yes additional social history: Terrance- Edger Hand History 3 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 Date Name GA/Weeks Outcome Route Bth Weight Infant Gen Labor Lgth Anesthesia Del Locatn Provider FOB Unknown 01/08/20 John 40 live - full term 7# 10oz Male 12 hour s none [place] Dr. Ibeth Carlos 06/17/22 Kevin 40 live - full term 8lbs 1oz Male none [facility] Danuta Murray CN Terrance Delivery Date: 06/17/22 Last Updated by: Diandra Truong see problem list for complications HPI 32wk ob Details: BRIGID BELLA is a 39 year old who presents for routine OB visit. OB Visit JAZMIN Calculator Estimated Delivery Date Method Current WG Current Estimate 12/08/24 LMP (Certain) 31w 6d Expected Delivery Route/Plan Labor Preferences- CB/BF classes: declines labor support person: [] labor intervention preferences: unmedicated pain management options preferred: minimal interventions cut cord/dad catch: [] : [] PP control planned: [] discussed possible routes of delivery and associated risks: [] special requests: [] Specific Issue/Plans Covid status: [] Flu vaccine: [] Tdap vaccine: [] Rhogam: [] LARC form signed: [] Problem list reviewed and updated with the most current plan of care details and appropriate orders placed. Relevant counseling for the gestational age provided. Continue routine care and follow up unless otherwise noted in visit notes/problem list details Initial Weight: 142 lb Date -???-???-???-???-???-? ??-???-???-???-???-??? -???- EGA Weight BP Urine Prot -???-???-???-???-???-? ??-???-???-???-???-??? -???- Glucose FHR FuHt Pres Dilation -???-???-???-???-???-? ??-???-???-???-???-??? -???- Effaced St Visi (more content not included)... Normal [facility] - Chemistry and C hemistry - challengeOrdered By: Radha Valverde on 09-29-2024 Glucose Ql (U) Negative [facility] - UrinalysisOrder ed By: Radha Valverde on 09-29-2024 Protein Ql (U) Negative [facility] Special Education Superintendent Office Visit Reporton 09-29-2024 Special Education Superintendent Office Visit Report [facility], [address] [place] [address] OFFICE VISIT Date of Service: 09/29/24 MR#: [id number] Acct: [id number] Name: BRIGID BELLA Rep #: [id number] : 1985 Provider: LIMA Gusman ams Age/Sex: 39/F Location: [facility] Status: Signed Intake Vital Signs 08/03/24 08:30 08/03/24 08:46 08/31/24 09:09 09/29/24 15:15 Height 5 ft 5 in 5 ft 5 in 5 ft 5 in 5 ft 5 in Weight: 164 lb 2 oz BMI 27.3 BP 107/74 Intake Visit Reasons: 30wk ob Chief Complaint: 30wk OB Destination Specialist Required: No Is patient in pain?: No Allergies No Known Allergies Allergy (Verified 09/29/24 15:13) Medications ???Medication ???Instructions ???Recorded ???Confirmed ???Type multivitamin no.47-iron fum 27 cap PO 05/20/24 09/29/24 History mg-folate no.1 1 mg-dha 300 mg capsule (PNV-DHA) Last Menstrual Period: 03/03/24 : No Have you fallen in the past year?: No PFSH PFSH Medical History Spontaneous onset of labor (spontaneous vaginal delivery) Two vessel umbilical cord Supervision of normal Surgical History [place] teeth extracted No pertinent past surgical history Family History Mother Cancer, Onset Age: 68 gallbladder Diabetes pre Hypertension High cholesterol Father FH: ALS (amyotrophic lateral sclerosis), Onset Age: 67 Hypertension High cholesterol Grandmother Celiac disease Maternal Colon cancer Maternal Grandmother Dementia Paternal Grandfather High cholesterol Paternal Hypertension Paternal Heart disease Myocardial infarction Maternal Social History adopted: No household members: spouse and children housing: house number of children: 2 current occupational status: employed current occupation: [employer] current occupational exposures/hazards: No pets and animals: Yes (2) pets and animals: dog(s) history of recent travel: No ([facility] last week, [place] October 23) sexually active: Yes Smoking Status: Never smoker second hand exposure: No alcohol intake: current alcohol intake frequency: a few times a month details: social 1-2 per month- Not while substance use type: does not use well-balanced diet: daily or most days caffeine: Yes Type: coffee Number of servings: 1 eating out: 1-3 times/week during the past year weight has: remained stable what type of physical activity do you participate in: walking and bicycling frequency: 3-4 times per week duration: 15-30 minutes/day lexx/holiness: Restoration seatbelt use: always do you feel safe at home: Yes additional social history: Terrance- Edger Hand History 3 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 Date Name GA/Weeks Outcome Route Bth Weight Gen Labor Lgth Anesthesia Del Locatn Provider FOB Unknown 01/08/20 [place] 40 live - full term 7# 10oz Male 12 hour s none [place] Dr. Ibeth Carlos 06/17/22 [place] 40 live - full term 8lbs 1oz Male none [facility] Delivery Date: 06/17/22 Last Updated by: Diandra Truong see problem list for complications HPI 30wk ob Details: BRIGID BELLA is a 39 year old who presents for routine OB visit. OB Visit JAZMIN Calculator Estimated Delivery Date Method Current WG Current Estimate 12/08/24 LMP (Certain) 30w 0d Expected Delivery Route/Plan Labor Preferences- CB/BF classes: declines labor support person: [] labor intervention preferences: unmedicated pain management options preferred: minimal interventions cut cord/dad catch: [] : [] PP control planned: [] discussed possible routes of delivery and associated risks: [] special requests: [] Specific Issue/Plans Covid status: [] Flu vaccine: [] Tdap vaccine: [] Rhogam: [] LARC form signed: [] Problem list reviewed and updated with the most current plan of care details and appropriate orders placed. Relevant counseling for the gestational age provided. Continue routine care and follow up unless otherwise noted in visit notes/problem list details Initial Weight: 142 lb Date -???-???-???-???-???-? ??-???-???-???-???-??? -???- EGA Weight BP Urine Prot -???-???-???-???-???-? ??-???-???-???-???-??? -???- Glucose FHR FuHt Pres Dilation -???-???-???-???-???-? ??-???-???-???-???-??? -??? (more content not included)... Normal [facility] Absolute lymphocyte countOrd ered By: Micaela Berriostings on 08-31-2024 Lymphocytes Auto (Unsp spec) [#/Vol] 2.06 10*3/uL 0.83-4.51 [facility] Absolute neutrophil countOrd ered By: Micaela Berriostings on 08-31-2024 Neutrophils (Bld) [#/Vol] 7.9 10*3/uL High 2.0-7.7 [facility] Automated lymphocyte count a s percentage of total leukocytesOrdered By: Micaela Berriostings on 08-31-2024 Lymphocytes/100 WBC Auto (Unsp spec) 18.9 % Low 19-41 [facility] Basophil percentageOrdered B y: Micaela Berriostings on 08-31-2024 Basophils/100 WBC (Bld) 0.4 % 0-1 [facility] CBC W/Diff, Automatedon - Absolute Lymph 2.06 X10 3/uL Normal 0.83-4.51 [facility] Comment on above: Performed By: #### L 100.0100, L509.8002, L501.0250, L3890.6006 ####[facility] [address] [place], [address] Absolute Neut 7.9 X10 3/uL High 2.0-7.7 [facility] Comment on above: Performed By: #### L 100.0100, L509.8002, L501.0250, L3890.6006 ####[facility] [address] [place], [address] Basophils/100 WBC (Bld) 0.4 % Normal 0-1 [facility] Comment on above: Performed By: #### L 100.0100, L509.8002, L501.0250, L3890.6006 ####[facility] [address] [place], [address] Eosinophils/100 WBC (Bld) 1.0 % Normal 0-5 [facility] Comment on above: Performed By: #### L 100.0100, L509.8002, L501.0250, L3890.6006 ####[facility] [address] [place], [address] Erythrocyte distribution width (RBC) [Ratio] 12.5 % Normal 11.6-14.6 [facility] Comment on above: Performed By: #### L 100.0100, L509.8002, L501.0250, L3890.6006 ####[facility] [address] [place], [address] Hematocrit (Bld) [Volume fraction] 35.2 % Low 37-47 [facility] Comment on above: Performed By: #### L 100.0100, L509.8002, L501.0250, L3890.6006 ####[facility] [address] [place], [address] Hemoglobin (Bld) [Mass/Vol] 11.5 g/dL Low 12.0-15.0 [facility] Comment on above: Performed By: #### L 100.0100, L509.8002, L501.0250, L3890.6006 ####[facility] [address] [place], [address] IG% 0.600 Normal 0.0-0.9 [facility] Comment on above: Result Comment: IG% - Immature Granulocytes (promyelocytes, myelocytes and metamyelocytes) > 1% indicates that a LEFT SHIFT is Present. Performed By: #### L 100.0100, L509.8002, L501.0250, L3890.6006 ####[facility] [address] [place], [address] Lymphocytes/100 WBC (Bld) 18.9 % Low 19-41 [facility] Comment on above: Performed By: #### L 100.0100, L509.8002, L501.0250, L3890.6006 ####[facility] [address] [place], [address] MCH (RBC) [Entitic mass] 30.3 pg Normal 27.0-32.0 [facility] Comment on above: Performed By: #### L 100.0100, L509.8002, L501.0250, L3890.6006 ####[facility] [address] [place], [address] MCHC (RBC) [Mass/Vol] 32.7 g/dL Normal 32-36 [facility] Comment on above: Performed By: #### L 100.0100, L509.8002, L501.0250, L3890.6006 ####[facility] [address] [place], [address] MCV (RBC) [Entitic vol] 92.9 fL Normal 81-99 [facility] Comment on above: Performed By: #### L 100.0100, L509.8002, L501.0250, L3890.6006 ####[facility] [address] [place], [address] Monocytes/100 WBC (Bld) 6.7 % Normal 0-10 [facility] Comment on above: Performed By: #### L 100.0100, L509.8002, L501.0250, L3890.6006 ####[facility] [address] [place], [address] Neutrophils/100 WBC (Bld) 72.4 % High 47-70 [facility] Comment on above: Performed By: #### L 100.0100, L509.8002, L501.0250, L3890.6006 ####[facility] [address] [place], [address] Nucleated RBC (Bld) [#/Vol] 0 10*3/uL Normal 0-5 [facility] Comment on above: Performed By: #### L 100.0100, L509.8002, L501.0250, L3890.6006 ####[facility] [address] [place], [address] Platelet mean volume (Bld) [Entitic vol] 12.0 fL Normal 6.2-12.0 [facility] Comment on above: Performed By: #### L 100.0100, L509.8002, L501.0250, L3890.6006 ####[facility] [address] [place], [address] Platelets (Bld) [#/Vol] 260 10*3/uL Normal 150-450 [facility] Comment on above: Performed By: #### L 100.0100, L509.8002, L501.0250, L3890.6006 ####[facility] [address] [place], [address] RBC (Bld) [#/Vol] 3.79 10*6/uL Low 4.2-5.4 [facility] Comment on above: Performed By: #### L 100.0100, L509.8002, L501.0250, L3890.6006 ####[facility] [address] [place], [address] RDW SD 42.7 fl Normal 35.1-43.9 [facility] Comment on above: Performed By: #### L 100.0100, L509.8002, L501.0250, L3890.6006 ####[facility] [address] [place], [address] WBC (Bld) [#/Vol] 10.9 10*3/uL Normal 4.4-11.0 [facility] Comment on above: Performed By: #### L 100.0100, L509.8002, L501.0250, L3890.6006 ####[facility] [address] [place], [address] Eosinophil percentageOrdered By: Micaela Peterson on 08-31-2024 Eosinophils/100 WBC (Bld) 1.0 % 0-5 [facility] Erythrocyte distribution wid th ratioOrdered By: Micaela Peterson on 08-31-2024 Erythrocyte distribution width (RBC) [Ratio] 12.5 % 11.6-14.6 [facility] Erythrocyte distribution wid th standard deviationOrdered By: Micaela Peterson on 08-31-2024 Erythrocyte distribution width (RBC) [Ratio] 42.7 fl 35.1-43.9 [facility] Glucose Challenge Gest 1H 50 irma 08-31-2024 GLU GEST 50g 1H 84 mg/dL Normal 70-140 [facility] Comment on above: Performed By: #### L 100.0100, L509.8002, L501.0250, L3890.6006 ####[facility] [address] [place], [address] Glucose measurement at 2 dillon rs post-dose gestational glucose tolerance testOrdered By: Micaela Peterson on 08-31-2024 Glucose [Mass/Vol] 84 mg/dL 70-140 [facility] HIVon 08-31-2024 HIV Non-Reactive Normal Nonreactive [facility] Comment on above: Result Comment: Non- Reactive Reactive Repeatedly reactive samples must be confirmed according to CDC recommended confirmatory algorithms. The subresults for either HIVAG or AHIV can be used as an aid in the selection of the confirmation algorithm for reactive samples. Send out specimens with Reactive results to [facility] for confirmation. Order the HIV antibody detection and differentiation: lc#[id number] Performed By: #### L 100.0100, L509.8002, L501.0250, L3890.6006 ####[facility] [address] [place], [address] Hematocrit Auto (Bld) [Volum e fraction]Ordered By: Micaela Peterson on 08-31-2024 Hematocrit (Bld) [Volume fraction] 35.2 % Low 37-47 [facility] Hemoglobin measurementOrdere d By: Micaela Peterson on 08-31-2024 Hemoglobin (Bld) [Mass/Vol] 11.5 g/dL Low 12.0-15.0 [facility] Immature granulocytes/100 WB C Auto (Bld)Ordered By: Micaela Peterson on 08-31-2024 Immature granulocytes/100 WBC (Bld) 0.600 % 0.0-0.9 [facility] Comment on above: IG% - Immature Granu locytes (promyelocytes, myelocytes and metamyelocytes) > 1% indicates that a LEFT SHIFT is Present. Laboratory - Chemistry and C hemistry - challengeOrdered By: Linda Mcconnell on 08-31-2024 Glucose Ql (U) Negative [facility] Laboratory - UrinalysisOrder ed By: Linda Mcconnell on 08-31-2024 Protein Ql (U) Negative [facility] MCV (mean corpuscular volume ) determinationOrdered By: Micaela Peterson on 08-31-2024 MCV (RBC) [Entitic vol] 92.9 fL 81-99 [facility] Mean corpuscular hemoglobin (MCH) determinationOrdered By: Micaela Peterson on 08-31-2024 MCH (RBC) [Entitic mass] 30.3 pg 27.0-32.0 [facility] Mean corpuscular hemoglobin concentration (MCHC) determinationOrdered By: Micaela Peterson on 08-31-2024 MCHC (RBC) [Mass/Vol] 32.7 g/dL 32-36 [facility] Mean platelet volume determi nationOrdered By: Micaela Peterson on 08-31-2024 Platelet mean volume (Bld) [Entitic vol] 12.0 fL 6.2-12.0 [facility] Monocyte percentageOrdered B y: Micaela Peterson on 08-31-2024 Monocytes/100 WBC (Bld) 6.7 % 0-10 [facility] Neutrophil percentageOrdered By: Micaela Peterson on 08-31-2024 Neutrophils/100 WBC (Bld) 72.4 % High 47-70 [facility] No Panel InformationOrdered By: Micaela Peterson on 08-31-2024 HIV (1&2) Antibody Non-Reactive Nonreactive [facility] Comment on above: Non-ReactiveReactive Repeatedly reactive samples must be confirmed according to CDC recommended confirmatory algorithms. The subresults for either HIVAG or AHIV can be used as an aid in the selection of the confirmation algorithm for reactive samples.Send out specimens with Reactive results to [facility] for confirmation.Order the HIV antibody detection and differentiation: #[id number] Nucleated red blood cell per centageOrdered By: Micaela Peterson on 08-31-2024 Nucleated RBC/100 WBC (Bld) [Ratio] 0 % 0-5 [facility] Special Education Superintendent Office Visit Reporton 08-31-2024 Special Education Superintendent Office Visit Report [facility] [address], [address] [place] [address] OFFICE VISIT Date of Service: 08/31/24 MR#: [id number] Acct: [id number] Name: BRIGID BELLA Rep #: [id number] : 1985 Provider: Dr. Linda hagan MD Age/Sex: 39/F Location: [facility] Status: Signed Intake Vital Signs 07/05/24 15:41 08/03/24 08:46 08/31/24 09:09 Height 5 ft 5 in 5 ft 5 in 5 ft 5 in Weight: 156 lb 6 oz BMI 26.0 BP 107/71 Intake Visit Reasons: 26wk ob/glucose Destination Specialist Required: No Is patient in pain?: No Feel stressed/tense/nervous /anxious/difficulty sleeping: not at all Allergies No Known Allergies Allergy (Verified 08/31/24 09:12) Medications ???Medication ???Instructions ???Recorded ???Confirmed ???Type multivitamin no.47-iron fum 27 cap PO 05/20/24 08/31/24 History mg-folate no.1 1 mg-dha 300 mg capsule (PNV-DHA) Last Menstrual Period: 03/03/24 Zika: Zika virus screening: Negative : No PFSH PFSH Medical History Spontaneous onset of labor (spontaneous vaginal delivery) Two vessel umbilical cord Supervision of normal Surgical History [place] teeth extracted No pertinent past surgical history Family History Mother Cancer, Onset Age: 68 gallbladder Diabetes pre Hypertension High cholesterol Father FH: ALS (amyotrophic lateral sclerosis), Onset Age: 67 Hypertension High cholesterol Grandmother Celiac disease Maternal Colon cancer Maternal Grandmother Dementia Paternal Grandfather High cholesterol Paternal Hypertension Paternal Heart disease Myocardial infarction Maternal Social History adopted: No household members: spouse and children housing: house number of children: 2 current occupational status: employed current occupation: [employer] current occupational exposures/hazards: No pets and animals: Yes (2) pets and animals: dog(s) history of recent travel: No ([facility] last week, [place] October 23) sexually active: Yes Smoking Status: Never smoker second hand exposure: No alcohol intake: current alcohol intake frequency: a few times a month details: social 1-2 per month- Not while substance use type: does not use well-balanced diet: daily or most days caffeine: Yes Type: coffee Number of servings: 1 eating out: 1-3 times/week during the past year weight has: remained stable what type of physical activity do you participate in: walking and bicycling frequency: 3-4 times per week duration: 15-30 minutes/day lexx/holiness: Restoration seatbelt use: always do you feel safe at home: Yes additional social history: Terrance- Edger Hand History 3 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 Date Name GA/Weeks Outcome Route Bth Weight Infant Gen Labor Lgth Anesthesia Del Locatn Provider FOB Unknown 01/08/20 [place] 40 live - full term 7# 10oz Male 12 hour s none [place] Dr. Ibeth Carlos 06/17/22 [place] 40 live - full term 8lbs 1oz Male none [facility] roger Murray CNM [place] Delivery Date: 06/17/22 Last Updated by: Diandra Truong see problem list for complications HPI 26wk ob/glucose Details: BRIGID BELLA is a 39 year old who presents for routine OB visit. OB Visit JAZMIN Calculator Estimated Delivery Date Method Current WG Current Estimate 12/08/24 LMP (Certain) 25w 6d Expected Delivery Route/Plan Labor Preferences- CB/BF classes: [] labor support person: [] labor intervention preferences: [] pain management options preferred: [] cut cord/dad catch: [] : [] PP control planned: [] discussed possible routes of delivery and associated risks: [] special requests: [] Specific Issue/Plans Covid status: [] Flu vaccine: [] Tdap vaccine: [] Rhogam: [] LARC form signed: [] Problem list reviewed and updated with the most current plan of care details and appropriate orders placed. Relevant counseling for the gestational age provided. Continue routine care and follow up unless otherwise noted in visit notes/problem list details Initial Weight: 142 lb Date -???-???-???-???-???-? ??-???-???-???-???-??? -???- EGA Weight BP Urine Prot -???-???-???-???-???-? ??-???-???-???-???-??? -???- Glucose FHR FuHt Pres Dilation -???-???-???-???-???-? ??-???-?? (more content not included)... Normal [facility] Platelet countOrdered By: Cas Peterson on 08-31-2024 Platelets (Bld) [#/Vol] 260 10*3/uL 150-450 [facility] RBC Auto (Bld) [#/Vol]Ordere d By: Micaela Peterson on 08-31-2024 RBC (Bld) [#/Vol] 3.79 10*6/uL Low 4.2-5.4 [facility] Syphilis Antibodieson 2024 Syphilis Abs Non-Reactive Normal Nonreactive [facility] Comment on above: Performed By: #### L 100.0100, L509.8002, L501.0250, L3890.6006 ####[facility] [address] [place], [address] White blood cell (WBC) count Ordered By: Micaela Peterson on 08-31-2024 WBC (Bld) [#/Vol] 10.9 10*3/uL 4.4-11.0 [facility] Laboratory - Chemistry and C hemistry - challengeOrdered By: Micaela Peterson on 08-03-2024 Glucose Ql (U) Negative [facility] Laboratory - UrinalysisOrder ed By: Micaela Peterson on 08-03-2024 Protein Ql (U) Negative [facility] Special Education Superintendent Office Visit Reporton 08-03-2024 Special Education Superintendent Office Visit Report [facility], [address] [place] [address] OFFICE VISIT Date of Service: 08/03/24 MR#: [id number] Acct: [id number] Name: BRIGID BELLA Rep #: [id number] : 1985 Provider: ISHAN mcdonald Age/Sex: 39/F Location: [facility] Status: Signed Intake Vital Signs 06/03/24 11:26 07/05/24 15:41 08/03/24 08:30 Height 5 ft 5 in 5 ft 5 in 5 ft 5 in Weight: 152 lb BMI 25.2 BP 102/64 Intake Visit Reasons: 21 wk ob Chief Complaint: 21 Week OB Destination Specialist Required: No Is patient in pain?: No Allergies No Known Allergies Allergy (Verified 08/03/24 08:33) Medications ???Medication ???Instructions ???Recorded ???Confirmed ???Type multivitamin no.47-iron fum 27 cap PO 05/20/24 08/03/24 History mg-folate no.1 1 mg-dha 300 mg capsule (PNV-DHA) Last Menstrual Period: 03/03/24 Zika: Zika virus screening: Negative : No PFSH PFSH Medical History Spontaneous onset of labor (spontaneous vaginal delivery) Two vessel umbilical cord Supervision of normal Surgical History [place] teeth extracted No pertinent past surgical history Family History Mother Cancer, Onset Age: 68 gallbladder Diabetes pre Hypertension High cholesterol Father FH: ALS (amyotrophic lateral sclerosis), Onset Age: 67 Hypertension High cholesterol Grandmother Celiac disease Maternal Colon cancer Maternal Grandmother Dementia Paternal Grandfather High cholesterol Paternal Hypertension Paternal Heart disease Myocardial infarction Maternal Social History adopted: No household members: spouse and children housing: house number of children: 2 current occupational status: employed current occupation: [employer] current occupational exposures/hazards: No pets and animals: Yes (2) pets and animals: dog(s) history of recent travel: No ([facility] last week, [place] October 23) sexually active: Yes Smoking Status: Never smoker second hand exposure: No alcohol intake: current alcohol intake frequency: a few times a month details: social 1-2 per month- Not while substance use type: does not use well-balanced diet: daily or most days caffeine: Yes Type: coffee Number of servings: 1 eating out: 1-3 times/week during the past year weight has: remained stable what type of physical activity do you participate in: walking and bicycling frequency: 3-4 times per week duration: 15-30 minutes/day lexx/holiness: Restoration seatbelt use: always do you feel safe at home: Yes additional social history: Terrance- Edger Hand History 3 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 Date Name GA/Weeks Outcome Route Bth Weight Gen Labor Lgth Anesthesia Del Locatn Provider FOB Unknown 01/08/20 [place] 40 live - full term 7# 10oz Male 12 hour s none [place] Dr. Ibeth Carlos 06/17/22 [place] 40 live - full term 8lbs 1oz Male none [facility] Danuta Murray CNM [place] Delivery Date: 06/17/22 Last Updated by: Diandra Truong see problem list for complications HPI 21 wk ob Details: BRIGID BELLA is a 39 year old who presents for routine OB visit. OB Visit JAZMIN Calculator Estimated Delivery Date Method Current WG Current Estimate 12/08/24 LMP (Certain) 21w 6d Expected Delivery Route/Plan Labor Preferences- CB/BF classes: [] labor support person: [] labor intervention preferences: [] pain management options preferred: [] cut cord/dad catch: [] : [] PP control planned: [] discussed possible routes of delivery and associated risks: [] special requests: [] Specific Issue/Plans Covid status: [] Flu vaccine: [] Tdap vaccine: [] Rhogam: [] LARC form signed: [] Problem list reviewed and updated with the most current plan of care details and appropriate orders placed. Relevant counseling for the gestational age provided. Continue routine care and follow up unless otherwise noted in visit notes/problem list details Initial Weight: 142 lb Date -???-???-???-???-???-? ??-???-???-???-???-??? -???- EGA Weight BP Urine Prot -???-???-???-???-???-? ??-???-???-???-???-??? -???- Glucose FHR FuHt Pres Dilation -???-???-???-???-???-? ??-???-???-???-???-??? -???- Effaced St Visit Note 0 (more content not included)... Normal [facility] Laboratory - Chemistry and C hemistry - challengeOrdered By: Sheyla Polk on 07-05-2024 Glucose Ql (U) Negative [facility] Laboratory - UrinalysisOrder ed By: Sheyla Polk on 07-05-2024 Protein Ql (U) Negative [facility] Special Education Superintendent Office Visit Reporton 07-05-2024 Special Education Superintendent Office Visit Report [facility] [address], [address] [place] [address] OFFICE VISIT Date of Service: 07/05/24 MR#: [id number] Acct: [id number] Name: BRIGID BELLA Rep #: [id number] : 1985 Provider: Dr. Sheyla Hilton, Age/Sex: 39/F Location: [facility] Status: Signed Intake Vital Signs 05/03/24 10:41 06/03/24 11:26 07/05/24 15:40 07/05/24 15:41 Height 5 ft 5 in 5 ft 5 in 5 ft 5 in 5 ft 5 in Weight: 146 lb 4 oz BMI 24.3 BP 101/68 Intake Visit Reasons: 17wk OB Destination Specialist Required: No Is patient in pain?: No Allergies No Known Allergies Allergy (Verified 07/05/24 15:39) Medications ???Medication ???Instructions ???Recorded ???Confirmed ???Type multivitamin no.47-iron fum 27 cap PO 05/20/24 07/05/24 History mg-folate no.1 1 mg-dha 300 mg capsule (PNV-DHA) Last Menstrual Period: 03/03/24 Zika: Zika virus screening: Negative : No PFSH PFSH Medical History Spontaneous onset of labor (spontaneous vaginal delivery) Two vessel umbilical cord Supervision of normal Surgical History [place] teeth extracted No pertinent past surgical history Family History Mother Cancer, Onset Age: 68 gallbladder Diabetes pre Hypertension High cholesterol Father FH: ALS (amyotrophic lateral sclerosis), Onset Age: 67 Hypertension High cholesterol Grandmother Celiac disease Maternal Colon cancer Maternal Grandmother Dementia Paternal Grandfather High cholesterol Paternal Hypertension Paternal Heart disease Myocardial infarction Maternal Social History adopted: No household members: spouse and children housing: house number of children: 2 current occupational status: employed current occupation: [employer] current occupational exposures/hazards: No pets and animals: Yes (2) pets and animals: dog(s) history of recent travel: No ([facility] last , [place] October 23) sexually active: Yes Smoking Status: Never smoker second hand exposure: No alcohol intake: current alcohol intake frequency: a few times a month details: social 1-2 per month- Not while substance use type: does not use well-balanced diet: daily or most days caffeine: Yes Type: coffee Number of servings: 1 eating out: 1-3 times/week during the past year weight has: remained stable what type of physical activity do you participate in: walking and bicycling frequency: 3-4 times per week duration: 15-30 minutes/day lexx/holiness: Restoration seatbelt use: always do you feel safe at home: Yes additional social history: Terrance- Edger Hand History 3 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 Date Name GA/Weeks Outcome Route Bth Weight Infant Gen Labor Lgth Anesthesia Del Locatn Provider FOB Unknown 01/08/20 John 40 live - full term 7# 10oz Male 12 hour s none [place] Dr. Ibeth Carlos 06/17/22 Kevin 40 live - full term 8lbs 1oz Male none [facility] roger LEE Terrance Delivery Date: 06/17/22 Last Updated by: Diandra Truong see problem list for complications HPI 17wk OB Details: BRIGID BELLA is a 39 year old who presents for routine OB visit. OB Visit JAZMIN Calculator Estimated Delivery Date Method Current WG Current Estimate 12/08/24 LMP (Certain) 17w 5d Expected Delivery Route/Plan Labor Preferences- CB/BF classes: [] labor support person: [] labor intervention preferences: [] pain management options preferred: [] cut cord/dad catch: [] : [] PP control planned: [] discussed possible routes of delivery and associated risks: [] special requests: [] Specific Issue/Plans Covid status: [] Flu vaccine: [] Tdap vaccine: [] Rhogam: [] LARC form signed: [] Problem list reviewed and updated with the most current plan of care details and appropriate orders placed. Relevant counseling for the gestational age provided. Continue routine care and follow up unless otherwise noted in visit notes/problem list details Initial Weight: 142 lb Date -???-???-???-???-???-? ??-???-???-???-???-??? -???- EGA Weight BP Urine Prot -???-???-???-???-???-? ??-???-???-???-???-??? -???- Glucose FHR FuHt Pres Dilation -???-???-???-???-???-? ??-???-???-???-???-??? -???- Effaced St Visit Note (more content not included)... Normal [facility] Chlamydia/GC SINA aptimaon CHLAMY,NUC ACID Negative Normal Negative [facility] Comment on above: Performed By: #### M 100.2200, L7000.1800 #### [facility] [address] [place], [address] GC BY NUC ACID Negative Normal Negative [facility] Comment on above: Result Comment: Perf ormed at: =G - [facility] [address] [place] [id number] Chipper: Maya Barrett MD, Phone: [phone] Performed By: #### M 100.2200, L7000.1800 #### [facility] [address] [place], [address] HIV - WCHon 06-04-2024 HIV Non-Reactive Normal Nonreactive [facility] Comment on above: Order Comment: Reaso n for Exam: Performed By: #### M 100.2200, L7000.1800 #### [facility] [address] [place], [address] Hepatitis B Surface Antigeno n 06-04-2024 HEP B Surf Ag Non-Reactive Normal Nonreactive [facility] Comment on above: Order Comment: Reaso n for Exam: Performed By: #### M 100.2200, L7000.1800 #### [facility] [address] [place], [address] Hepatitis C Antibodyon 06-04 Hepatitis C AB Non-Reactive Normal Nonreactive [facility] Comment on above: Order Comment: Reaso n for Exam: Result Comment: Non Reactive: < 0.8 Equivocal: >/= 0.8 to < 1.0 Reactive: >/= 1.0 The CDC requires that a reactive/equivocal HCV antibody result be sent out for confirmation. HCV Quant by PCR testing. Performed By: #### M 100.2200, L7000.1800 #### [facility] [address] [place], [address] L509.8000on 06-04-2024 Syphilis Abs Non-Reactive Normal [facility] Comment on above: Order Comment: Reaso n for Exam: Performed By: #### M 100.2200, L7000.1800 #### [facility] [address] [place], [address] Rubella IgGon 06-04-2024 Rubella IgG Reactive Normal Nonreactive [facility] Comment on above: Order Comment: Reaso n for Exam: Result Comment: Anti body Results Interpretation of Immune Status Non Reactive Presumed Non-Immune Equivocal Equivocal Reactive Presumed Immune Performed By: #### M 100.2200, L7000.1800 #### [facility] [address] [place], [address] Urine Cultureon 06-04-2024 URC Culture exhibits no growth. Normal [facility] Comment on above: Performed By: #### M 100.2200, L7000.1800 #### [facility] [address] [place], [address] Absolute lymphocyte countOrd ered By: Trish Murray on 06-03-2024 Lymphocytes Auto (Unsp spec) [#/Vol] 2.33 10*3/uL 0.83-4.51 [facility] Absolute neutrophil countOrd ered By: Trish Murray on 06-03-2024 Neutrophils (Bld) [#/Vol] 8.5 10*3/uL High 2.0-7.7 [facility] Automated lymphocyte count a s percentage of total leukocytesOrdered By: Trish Murray on 06-03-2024 Lymphocytes/100 WBC Auto (Unsp spec) 20.1 % 19-41 [facility] Basophil percentageOrdered B y: Trish Murray on 06-03-2024 Basophils/100 WBC (Bld) 0.3 % 0-1 [facility] CBC W/Diff, Automatedon 05-06 Absolute Lymph 2.33 X10 3/uL Normal 0.83-4.51 [facility] Comment on above: Performed By: #### M 100.2200, L7000.1800 #### [facility] [address] [place], [address] Absolute Neut 8.5 X10 3/uL High 2.0-7.7 [facility] Comment on above: Performed By: #### M 100.2200, L7000.1800 #### [facility] [address] [place], [address] Basophils/100 WBC (Bld) 0.3 % Normal 0-1 [facility] Comment on above: Performed By: #### M 100.2200, L7000.1800 #### [facility] [address] [place], [address] Eosinophils/100 WBC (Bld) 0.6 % Normal 0-5 [facility] Comment on above: Performed By: #### M 100.2200, L7000.1800 #### [facility] [address] [place], [address] Erythrocyte distribution width (RBC) [Ratio] 13.3 % Normal 11.6-14.6 [facility] Comment on above: Performed By: #### M 100.2200, L7000.1800 #### [facility] [address] [place], [address] Hematocrit (Bld) [Volume fraction] 36.7 % Low 37-47 [facility] Comment on above: Performed By: #### M 100.2200, L7000.1800 #### [facility] [address] [place], [address] Hemoglobin (Bld) [Mass/Vol] 12.1 g/dL Normal 12.0-15.0 [facility] Comment on above: Performed By: #### M 100.2200, L7000.1800 #### [facility] [address] [place], [address] IG% 0.300 Normal 0.0-0.9 [facility] Comment on above: Result Comment: IG% - Immature Granulocytes (promyelocytes, myelocytes and metamyelocytes) > 1% indicates that a LEFT SHIFT is Present. Performed By: #### M 100.2200, L7000.1800 #### [facility] [address] [place], [address] Lymphocytes/100 WBC (Bld) 20.1 % Normal 19-41 [facility] Comment on above: Performed By: #### M 100.2200, L7000.1800 #### [facility] [address] [place], [address] MCH (RBC) [Entitic mass] 29.4 pg Normal 27.0-32.0 [facility] Comment on above: Performed By: #### M 100.2200, L7000.1800 #### [facility] [address] [place], [address] MCHC (RBC) [Mass/Vol] 33.0 g/dL Normal 32-36 [facility] Comment on above: Performed By: #### M 100.2200, L7000.1800 #### [facility] [address] [place], [address] MCV (RBC) [Entitic vol] 89.1 fL Normal 81-99 [facility] Comment on above: Performed By: #### M 100.2200, L7000.1800 #### [facility] [address] [place], [address] Monocytes/100 WBC (Bld) 5.5 % Normal 0-10 [facility] Comment on above: Performed By: #### M 100.2200, L7000.1800 #### [facility] [address] [place], [address] Neutrophils/100 WBC (Bld) 73.2 % High 47-70 [facility] Comment on above: Performed By: #### M 100.2200, L7000.1800 #### [facility] [address] [place], [address] Nucleated RBC (Bld) [#/Vol] 0 10*3/uL Normal 0-5 [facility] Comment on above: Performed By: #### M 100.2200, L7000.1800 #### [facility] [address] [place], [address] Platelet mean volume (Bld) [Entitic vol] 11.1 fL Normal 6.2-12.0 [facility] Comment on above: Performed By: #### M 100.2200, L7000.1800 #### [facility] [address] [place], [address] Platelets (Bld) [#/Vol] 309 10*3/uL Normal 150-450 [facility] Comment on above: Performed By: #### M 100.2200, L7000.1800 #### [facility] [address] [place], [address] RBC (Bld) [#/Vol] 4.12 10*6/uL Low 4.2-5.4 [facility] Comment on above: Performed By: #### M 100.2200, L7000.1800 #### [facility] [address] [place], [address] RDW SD 43.8 fl Normal 35.1-43.9 [facility] Comment on above: Performed By: #### M 100.2200, L7000.1800 #### [facility] [address] [place], [address] WBC (Bld) [#/Vol] 11.6 10*3/uL High 4.4-11.0 [facility] Comment on above: Performed By: #### M 100.2200, L7000.1800 #### [facility] [address] [place], [address] Chlamydia trachomatis rRNA d etection by probe and target amplification methodOrdered By: Trish Murray on 06-03-2024 C. trachomatis rRNA SINA+probe Ql (Unsp spec) Negative Negative [facility] Eosinophil percentageOrdered By: Trish Murray on 06-03-2024 Eosinophils/100 WBC (Bld) 0.6 % 0-5 [facility] Erythrocyte distribution wid th ratioOrdered By: Trish Murray on 06-03-2024 Erythrocyte distribution width (RBC) [Ratio] 13.3 % 11.6-14.6 [facility] Erythrocyte distribution wid th standard deviationOrdered By: Trish Murray on 06-03-2024 Erythrocyte distribution width (RBC) [Ratio] 43.8 fl 35.1-43.9 [facility] HIV 1 and HIV-2 antibody ass ay with HIV-1 p24 antigen detectionOrdered By: Trish Murray on 06-03-2024 HIV 1+2 Ab+HIV1 p24 Ag IA Ql Non-Reactive Nonreactive [facility] Hematocrit Auto (Bld) [Volum e fraction]Ordered By: Trish Murray on 06-03-2024 Hematocrit (Bld) [Volume fraction] 36.7 % Low 37-47 [facility] Hemoglobin measurementOrdere d By: Trish Murray on 06-03-2024 Hemoglobin (Bld) [Mass/Vol] 12.1 g/dL 12.0-15.0 [facility] Immature granulocytes/100 WB C Auto (Bld)Ordered By: Trish Murray on 06-03-2024 Immature granulocytes/100 WBC (Bld) 0.300 % 0.0-0.9 [facility] Comment on above: IG% - Immature Granu locytes (promyelocytes, myelocytes and metamyelocytes) > 1% indicates that a LEFT SHIFT is Present. MCV (mean corpuscular volume ) determinationOrdered By: Trish Murray on 06-03-2024 MCV (RBC) [Entitic vol] 89.1 fL 81-99 [facility] Mean corpuscular hemoglobin (MCH) determinationOrdered By: Trish Murray on 06-03-2024 MCH (RBC) [Entitic mass] 29.4 pg 27.0-32.0 [facility] Mean corpuscular hemoglobin concentration (MCHC) determinationOrdered By: Trish Murray on 06-03-2024 MCHC (RBC) [Mass/Vol] 33.0 g/dL 32-36 [facility] Mean platelet volume determi nationOrdered By: Trish Murray on 06-03-2024 Platelet mean volume (Bld) [Entitic vol] 11.1 fL 6.2-12.0 [facility] Monocyte percentageOrdered B y: Trish Murray on 06-03-2024 Monocytes/100 WBC (Bld) 5.5 % 0-10 [facility] NATERAon 06-03-2024 NATURA SEE SCANNED REPORT Normal [facility] Comment on above: Order Comment: Comme nts: NIPT WITHOUT GENDER Performed By: #### M 100.2200, L7000.1800 #### [facility] [address] [place], [address] Neisseria gonorrhoeae nuclei c acid detection by amplified probe techniqueOrdered By: Trish Murray on 06-03-2024 N. gonorrhoeae DNA SINA+probe Ql (Unsp spec) Negative Negative [facility] Comment on above: Performed at: =[address] [id number] Director: Maya Barrett MD, Phone: [phone] Neutrophil percentageOrdered By: Trish Murray on 06-03-2024 Neutrophils/100 WBC (Bld) 73.2 % High 47-70 [facility] Nucleated red blood cell per centageOrdered By: Trish Murray on 06-03-2024 Nucleated RBC/100 WBC (Bld) [Ratio] 0 % 0-5 [facility] Special Education Superintendent Office Visit Reporton 06-03-2024 Special Education Superintendent Office Visit Report [facility], [address] [place] [address] OFFICE VISIT Date of Service: 06/03/24 MR#: [id number] Acct: [id number] Name: BRIGID BELLA Rep #: [id number] : 1985 Provider: LIMA holman Age/Sex: 39/F Location: [facility] Status: Signed Intake Vital Signs 02/24/24 08:27 05/03/24 10:41 06/03/24 11:26 Height 5 ft 5 in 5 ft 5 in Weight: 142 lb BMI 23.6 BP 113/76 Intake Visit Reasons: New OB, LMP 03/03/24, JAZMIN 12/08/24 Destination Specialist Required: No Is patient in pain?: No Allergies No Known Allergies Allergy (Verified 05/20/24 08:24) Medications ???Medication ???Instructions ???Recorded ???Confirmed ???Type multivitamin no.47-iron fum 27 cap PO 05/20/24 05/20/24 History mg-folate no.1 1 mg-dha 300 mg capsule (PNV-DHA) Last Menstrual Period: 03/03/24 : No PFSH PFSH Medical History Spontaneous onset of labor (spontaneous vaginal delivery) Two vessel umbilical cord Supervision of normal Surgical History [place] teeth extracted No pertinent past surgical history Family History Mother Cancer, Onset Age: 68 gallbladder Diabetes pre Hypertension High cholesterol Father FH: ALS (amyotrophic lateral sclerosis), Onset Age: 67 Hypertension High cholesterol Grandmother Celiac disease Maternal Colon cancer Maternal Grandmother Dementia Paternal Grandfather High cholesterol Paternal Hypertension Paternal Heart disease Myocardial infarction Maternal Social History adopted: No household members: spouse and children housing: house number of children: 2 current occupational status: employed current occupation: [employer] current occupational exposures/hazards: No pets and animals: Yes (2) pets and animals: dog(s) history of recent travel: No ([facility] last week, [place] October 23) sexually active: Yes Smoking Status: Never smoker second hand exposure: No alcohol intake: current alcohol intake frequency: a few times a month details: social 1-2 per month- Not while substance use type: does not use well-balanced diet: daily or most days caffeine: Yes Type: coffee Number of servings: 1 eating out: 1-3 times/week during the past year weight has: remained stable what type of physical activity do you participate in: walking and bicycling frequency: 3-4 times per week duration: 15-30 minutes/day lexx/holiness: Restoration seatbelt use: always do you feel safe at home: Yes additional social history: Terrance- Edger Hand History 3 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 Date Name GA/Weeks Outcome Route Bth Weight Infant Gen Labor Lgth Anesthesia Del Locatn Provider FOB Unknown 01/08/20 John 40 live - full term 7# 10oz Male 12 hour s none [place] Dr. Ibeth Carlos 06/17/22 Kevin 40 live - full term 8lbs 1oz Male none [facility] Danuta Murray CNM Terrance Delivery Date: 06/17/22 Last Updated by: Diandra Truong see problem list for complications HPI New OB, LMP 03/03/24, JAZMIN 12/08/24 Details: BRIGID BELLA is a 39 year old who presents for New OB visit. OB Visit JAZMIN Calculator Estimated Delivery Date Method Current WG Current Estimate 12/08/24 LMP (Certain) 13w 1d Comments: HIV: Urine Culture: Sequential Screen: NIPT Screen: Estimated Due Date: 12/08/24 Expected Delivery Route/Plan Labor Preferences- CB/BF classes: [] labor support person: [] labor intervention preferences: [] pain management options preferred: [] cut cord/dad catch: [] : [] PP control planned: [] discussed possible routes of delivery and associated risks: [] special requests: [] Specific Issue/Plans Covid status: [] Flu vaccine: [] Tdap vaccine: [] Rhogam: [] LARC form signed: [] Problem list reviewed and updated with the most current plan of care details and appropriate orders placed. Relevant counseling for the gestational age provided. Continue routine care and follow up unless otherwise noted in visit notes/problem list details Initial Weight: 142 lb Date -???-???-???-???-???-? ??-???-???-???-???-??? -???- EGA Weight BP Urine Prot -???-???-???-???-???-? ??-???-???-???-???-??? -???- Glucose FHR FuHt Pres Dilation -???-???-???-???-???-? ??-???-???-?? (more content not included)... Normal [facility] Platelet countOrdered By: Danuta Murray on 06-03-2024 Platelets (Bld) [#/Vol] 309 10*3/uL 150-450 [facility] RBC Auto (Bld) [#/Vol]Ordere d By: Trish Murray on 06-03-2024 RBC (Bld) [#/Vol] 4.12 10*6/uL Low 4.2-5.4 [facility] Serum Treponema species anti body detectionOrdered By: Trish Murray on 06-03-2024 Treponema sp Ab Ql (S) Non-Reactive [facility] Type AND Screenon 06-03-2024 Ab SCREEN GEL Negative Normal [facility] Comment on above: Order Comment: PN Performed By: #### M 100.2200, L7000.1800 #### [facility] [address] [facility] [place], [place], [id number] Urine cultureOrdered By: Jossy Murray on 06-03-2024 Bacteria identified Cx Nom (U) Culture exhibits no growth. [facility] White blood cell (WBC) count Ordered By: Trish Murray on 06-03-2024 WBC (Bld) [#/Vol] 11.6 10*3/uL High 4.4-11.0 [facility] Thyroidon 03-09-2024 Thyroid [facility] [address] [place], [place] [id number] Thyroid MR#: [id number] Acct: [id number] Name: BRIGID BELLA Rep #: [id number] : 1985 F 38 From: Santo acosta MD PCP: Dr. Yousuf Ortiz MD Status: REG CLI Study: Thyroid Date of Exam: 03/09/24 Exam# [id number] Ordering Dr: Yousuf Ortiz MD [id number] STUDY: THYROID ULTRASOUND REASON FOR EXAM: Female, 38 years old. Enlarged thyroid TECHNIQUE: Ultrasound evaluation of the thyroid was performed with real-time and static haney-scale imaging. COMPARISON: None. FINDINGS: RIGHT LOBE: The right lobe of the thyroid gland is enlarged and measures 5.2 cm x 1.2 cm x 0.9 cm. There is a homogeneous echotexture. There is a 2.4 cm colloid cyst in the posterior aspect of the upper pole of the right lobe. LEFT LOBE: The left lobe of the thyroid gland measures 4.4 cm x 1.2 cm x 0.6 cm. There is a homogeneous echotexture. There is a 2 mm x 2 mm x 2 mm colloid cyst in the lower inferior aspect. ISTHMUS: The isthmus measures 1.3 mm. The regional lymph nodes are normal. US/Thyroid IMPRESSION: Tiny colloid cysts as described. Yearly follow-up recommended. Electronically Signed: Santo Rowe MD at 14:30 EST Reading Location ID and State: [address] [place] [address] , Service support , CC: Dr. Yousuf Ortiz MD Rub[employer] Cutting Machine Tender: Signed Normal [facility] CBC W/Diff, Automatedon 10-2 Absolute Lymph 2.59 X10 3/uL Normal 0.83-4.51 [facility] Comment on above: Performed By: #### L 100.0100, L503.0105, L506.0400, L501.9186, L500.4050, L500.4100, L506.1000, L501.9520 #### [facility] [address] [place], [place], [address] Absolute Neut 3.3 X10 3/uL Normal 2.0-7.7 [facility] Comment on above: Performed By: #### L 100.0100, L503.0105, L506.0400, L501.9186, L500.4050, L500.4100, L506.1000, L501.9520 #### [facility] [address] [place], [address] Basophils/100 WBC (Bld) 0.8 % Normal 0-1 [facility] Comment on above: Performed By: #### L 100.0100, L503.0105, L506.0400, L501.9186, L500.4050, L500.4100, L506.1000, L501.9520 #### [facility] [address] [place], [address] Eosinophils/100 WBC (Bld) 1.8 % Normal 0-5 [facility] Comment on above: Performed By: #### L 100.0100, L503.0105, L506.0400, L501.9186, L500.4050, L500.4100, L506.1000, L501.9520 #### [facility] [address] [place], [address] Erythrocyte distribution width (RBC) [Ratio] 12.9 % Normal 11.6-14.6 [facility] Comment on above: Performed By: #### L 100.0100, L503.0105, L506.0400, L501.9186, L500.4050, L500.4100, L506.1000, L501.9520 #### [facility] [address] [place], [address] Hematocrit (Bld) [Volume fraction] 40.4 % Normal 37-47 [facility] Comment on above: Performed By: #### L 100.0100, L503.0105, L506.0400, L501.9186, L500.4050, L500.4100, L506.1000, L501.9520 #### [facility] [address] [place], [address] Hemoglobin (Bld) [Mass/Vol] 12.8 g/dL Normal 12.0-15.0 [facility] Comment on above: Performed By: #### L 100.0100, L503.0105, L506.0400, L501.9186, L500.4050, L500.4100, L506.1000, L501.9520 #### [facility] [address] [place], [address] IG% 0.200 Normal 0.0-0.9 [facility] Comment on above: Result Comment: IG% - Immature Granulocytes (promyelocytes, myelocytes and metamyelocytes) > 1% indicates that a LEFT SHIFT is Present. Performed By: #### L 100.0100, L503.0105, L506.0400, L501.9186, L500.4050, L500.4100, L506.1000, L501.9520 #### [facility] [address] [place], [address] Lymphocytes/100 WBC (Bld) 39.3 % Normal 19-41 [facility] Comment on above: Performed By: #### L 100.0100, L503.0105, L506.0400, L501.9186, L500.4050, L500.4100, L506.1000, L501.9520 #### [facility] [address] [place], [address] MCH (RBC) [Entitic mass] 28.5 pg Normal 27.0-32.0 [facility] Comment on above: Performed By: #### L 100.0100, L503.0105, L506.0400, L501.9186, L500.4050, L500.4100, L506.1000, L501.9520 #### [facility] [address] [place], [address] MCHC (RBC) [Mass/Vol] 31.7 g/dL Low 32-36 [facility] Comment on above: Performed By: #### L 100.0100, L503.0105, L506.0400, L501.9186, L500.4050, L500.4100, L506.1000, L501.9520 #### [facility] [address] [place], [address] MCV (RBC) [Entitic vol] 90.0 fL Normal 81-99 [facility] Comment on above: Performed By: #### L 100.0100, L503.0105, L506.0400, L501.9186, L500.4050, L500.4100, L506.1000, L501.9520 #### [facility] [address] [place], [address] Monocytes/100 WBC (Bld) 8.5 % Normal 0-10 [facility] Comment on above: Performed By: #### L 100.0100, L503.0105, L506.0400, L501.9186, L500.4050, L500.4100, L506.1000, L501.9520 #### [facility] [address] [place] [place], [address] Neutrophils/100 WBC (Bld) 49.4 % Normal 47-70 [facility] Comment on above: Performed By: #### L 100.0100, L503.0105, L506.0400, L501.9186, L500.4050, L500.4100, L506.1000, L501.9520 #### [facility] [address] [place] [place], [address] Nucleated RBC (Bld) [#/Vol] 0 10*3/uL Normal 0-5 [facility] Comment on above: Performed By: #### L 100.0100, L503.0105, L506.0400, L501.9186, L500.4050, L500.4100, L506.1000, L501.9520 #### [facility] [address] [place], [address] Platelet mean volume (Bld) [Entitic vol] 11.9 fL Normal 6.2-12.0 [facility] Comment on above: Performed By: #### L 100.0100, L503.0105, L506.0400, L501.9186, L500.4050, L500.4100, L506.1000, L501.9520 #### [facility] [address] [place], [address] Platelets (Bld) [#/Vol] 296 10*3/uL Normal 150-450 [facility] Comment on above: Performed By: #### L 100.0100, L503.0105, L506.0400, L501.9186, L500.4050, L500.4100, L506.1000, L501.9520 #### [facility] [address] [place], [address] RBC (Bld) [#/Vol] 4.49 10*6/uL Normal 4.2-5.4 [facility] Comment on above: Performed By: #### L 100.0100, L503.0105, L506.0400, L501.9186, L500.4050, L500.4100, L506.1000, L501.9520 #### [facility] [address] [place], [address] RDW SD 43.0 fl Normal 35.1-43.9 [facility] Comment on above: Performed By: #### L 100.0100, L503.0105, L506.0400, L501.9186, L500.4050, L500.4100, L506.1000, L501.9520 #### [facility] [address] [place], [address] WBC (Bld) [#/Vol] 6.6 10*3/uL Normal 4.4-11.0 [facility] Comment on above: Performed By: #### L 100.0100, L503.0105, L506.0400, L501.9186, L500.4050, L500.4100, L506.1000, L501.9520 #### [facility] [address] [place], [address] Comprehensive Metabolic Prof ilon 02-24-2024 Albumin [Mass/Vol] 4.3 g/dL Normal 3.2-5.0 [facility] Comment on above: Performed By: #### L 100.0100, L503.0105, L506.0400, L501.9186, L500.4050, L500.4100, L506.1000, L501.9520 #### [facility] [address] [place], [address] Albumin/Globulin [Mass ratio] 1.2 {ratio} Normal 0.9-2.4 [facility] Comment on above: Performed By: #### L 100.0100, L503.0105, L506.0400, L501.9186, L500.4050, L500.4100, L506.1000, L501.9520 #### [facility] [address] [place], [address] ALK P 42 U/L Low 45-117 [facility] Comment on above: Performed By: #### L 100.0100, L503.0105, L506.0400, L501.9186, L500.4050, L500.4100, L506.1000, L501.9520 #### [facility] [address] [place], [address] ALT [Catalytic activity/Vol] 23 U/L Normal 13-56 [facility] Comment on above: Performed By: #### L 100.0100, L503.0105, L506.0400, L501.9186, L500.4050, L500.4100, L506.1000, L501.9520 #### [facility] [address] [place], [address] AST [Catalytic activity/Vol] 13 U/L Low 15-37 [facility] Comment on above: Performed By: #### L 100.0100, L503.0105, L506.0400, L501.9186, L500.4050, L500.4100, L506.1000, L501.9520 #### [facility] [address] [place], [address] Bilirubin [Mass/Vol] 0.50 mg/dL Normal 0.20-1.00 [facility] Comment on above: Result Comment: For patients on eltrombopag therapy, use of Dimension Nahma TBIL is not recommended. Performed By: #### L 100.0100, L503.0105, L506.0400, L501.9186, L500.4050, L500.4100, L506.1000, L501.9520 #### [facility] [address] [place], [address] BUN/CRE 21.3 RATIO High 10-20 [facility] Comment on above: Performed By: #### L 100.0100, L503.0105, L506.0400, L501.9186, L500.4050, L500.4100, L506.1000, L501.9520 #### [facility] [address] [place], [address] CA,Total 9.3 mg/dL Normal 8.5-10.1 [facility] Comment on above: Performed By: #### L 100.0100, L503.0105, L506.0400, L501.9186, L500.4050, L500.4100, L506.1000, L501.9520 #### [facility] [address] [place], [address] Chloride [Moles/Vol] 107 mmol/L Normal 98-107 [facility] Comment on above: Performed By: #### L 100.0100, L503.0105, L506.0400, L501.9186, L500.4050, L500.4100, L506.1000, L501.9520 #### [facility] [address] [place], [place], [id number] (372) CO2 [Moles/Vol] 26.0 mmol/L Normal 21.0-32.0 [facility] Comment on above: Performed By: #### L 100.0100, L503.0105, L506.0400, L501.9186, L500.4050, L500.4100, L506.1000, L501.9520 #### [facility] [address] [place], [place], [id number] (408) Creatinine [Mass/Vol] 0.75 mg/dL Normal 0.55-1.02 [facility] Comment on above: Result Comment: The validity of the calculated GFR GFRAA in patients over 70 years has not been determined. Clinical correlation is essential. Performed By: #### L 100.0100, L503.0105, L506.0400, L501.9186, L500.4050, L500.4100, L506.1000, L501.9520 #### [facility] [address] [place], [place], [phone] (303) EST GFR - AA 111 mL/min Normal >60 [facility] Comment on above: Result Comment: Afri can Ecuadorean GFR Calc Performed By: #### L 100.0100, L503.0105, L506.0400, L501.9186, L500.4050, L500.4100, L506.1000, L501.9520 #### [facility] [address] [place], [address] GAP 4 Low 5-15 [facility] Comment on above: Performed By: #### L 100.0100, L503.0105, L506.0400, L501.9186, L500.4050, L500.4100, L506.1000, L501.9520 #### [facility] [address] [place], [address] GFR/1.73 sq M.predicted among non-blacks MDRD (S/P/Bld) [Vol rate/Area] 92 mL/min/{1.73_m2} Normal >60 [facility] Comment on above: Result Comment: Non- GFR Calc Performed By: #### L 100.0100, L503.0105, L506.0400, L501.9186, L500.4050, L500.4100, L506.1000, L501.9520 #### [facility] [address] [place], [address] Globulin (S) [Mass/Vol] 3.5 g/dL Normal 2.2-4.2 [facility] Comment on above: Performed By: #### L 100.0100, L503.0105, L506.0400, L501.9186, L500.4050, L500.4100, L506.1000, L501.9520 #### [facility] [address] [place], [address] Glucose [Mass/Vol] 89 mg/dL Normal 74-106 [facility] Comment on above: Performed By: #### L 100.0100, L503.0105, L506.0400, L501.9186, L500.4050, L500.4100, L506.1000, L501.9520 #### [facility] [address] [place], [address] Potassium [Moles/Vol] 3.9 mmol/L Normal 3.5-5.1 [facility] Comment on above: Performed By: #### L 100.0100, L503.0105, L506.0400, L501.9186, L500.4050, L500.4100, L506.1000, L501.9520 #### [facility] [address] [place], [address] Sodium [Moles/Vol] 136 mmol/L Normal 136-145 [facility] Comment on above: Performed By: #### L 100.0100, L503.0105, L506.0400, L501.9186, L500.4050, L500.4100, L506.1000, L501.9520 #### [facility] [address] [place], [address] T PROT 7.8 g/dL Normal 6.4-8.2 [facility] Comment on above: Performed By: #### L 100.0100, L503.0105, L506.0400, L501.9186, L500.4050, L500.4100, L506.1000, L501.9520 #### [facility] [address] [place], [address] Urea nitrogen [Mass/Vol] 16 mg/dL Normal 7-18 [facility] Comment on above: Performed By: #### L 100.0100, L503.0105, L506.0400, L501.9186, L500.4050, L500.4100, L506.1000, L501.9520 #### [facility] [address] [place], [address] Lipid Profileon 02-24-2024 Cholesterol [Mass/Vol] 265 mg/dL High 200 [facility] Comment on above: Result Comment: <200 mg/dL Desirable 200-240 mg/dL Borderline >240 mg/dL High Risk Performed By: #### L 100.0100, L503.0105, L506.0400, L501.9186, L500.4050, L500.4100, L506.1000, L501.9520 #### [facility] [address] [place], [address] Cholesterol in HDL [Mass/Vol] 77 mg/dL Normal [facility] Comment on above: Result Comment: The drugs N-Acetylcysteine and Metamizole may falsely depress this assay. Reference Range HDL <40 mg/dL Low HDL Cholesterol HDL >or= 60 mg/dL High HDL Cholesterol Performed By: #### L 100.0100, L503.0105, L506.0400, L501.9186, L500.4050, L500.4100, L506.1000, L501.9520 #### [facility] [address] [place], [address] Cholesterol in LDL [Mass/Vol] 176 mg/dL High 0-130 [facility] Comment on above: Performed By: #### L 100.0100, L503.0105, L506.0400, L501.9186, L500.4050, L500.4100, L506.1000, L501.9520 #### [facility] [address] [place], [place], [id number] (261) Cholesterol in VLDL [Mass/Vol] 12 mg/dL Normal 5-40 [facility] Comment on above: Performed By: #### L 100.0100, L503.0105, L506.0400, L501.9186, L500.4050, L500.4100, L506.1000, L501.9520 #### [facility] [address] [place], [place], [phone] ([address] Triglyceride [Mass/Vol] 58 mg/dL Normal [facility] Comment on above: Result Comment: The drugs N-Acetylcysteine and Metamizole may falsely depress this assay. Serum Triglycerides Reference Interval Normal <150 mg/dL Borderline high 150 - 199 mg/dL High 200 - 499 mg/dL Very High > or = 500 mg/dL Performed By: #### L 100.0100, L503.0105, L506.0400, L501.9186, L500.4050, L500.4100, L506.1000, L501.9520 #### [facility] [address] [place], [address] T3 Total - Triiodothyronineo n 02-24-2024 T3 Total 0.92 ng/mL Normal 0.6-1.81 [facility] Comment on above: Performed By: #### L 100.0100, L503.0105, L506.0400, L501.9186, L500.4050, L500.4100, L506.1000, L501.9520 #### [facility] [address] [place], [address] T4 Free Directon 02-24-2024 T4 FREE DIRECT 0.77 ng/dL Normal 0.76-1.46 [facility] Comment on above: Performed By: #### M 100.2200, L7000.1800 #### [facility] [address] [place], [address] Thyroid Stim Hormone (TSH)on 02-24-2024 TSH 3.400 uIU/mL Normal 0.358-3.740 [facility] Comment on above: Performed By: #### M 100.2200, L7000.1800 #### [facility] [address] [place], [address] Vitamin B12on 02-24-2024 Cobalamin (Vitamin B12) [Mass/Vol] 716 pg/mL Normal 211-911 [facility] Comment on above: Performed By: #### L 100.0100, L503.0105, L506.0400, L501.9186, L500.4050, L500.4100, L506.1000, L501.9520 #### [facility] [address] [place], [address] Vitamin D,25 Hydroxyon 02-23 Vitamin D 25-OH 26.0 ng/mL Normal [facility] Comment on above: Result Comment: Diana min D 25(OH) Status Range Deficiency <20 ng/mL (50nmol/L) Insufficiency 20 - 30 ng/mL (50 - 75 nmol/L) Sufficiency 30 - 100 ng/mL (75 - 250 nmol/L) Toxicity >100 ng/mL (>250 nmol/L) Performed By: #### L 100.0100, L503.0105, L506.0400, L501.9186, L500.4050, L500.4100, L506.1000, L501.9520 #### [facility] [address] [place], [address] Internal Medicine Office Vis iton 02-23-2024 Internal Medicine Office Visit [facility] [address] [place] [address] [place] [address] OFFICE VISIT Date of Service: 02/24/24 MR#: [id number] Acct: [id number] Name: BRIGID BELLA Rep #: [id number] 18 : 1985 Provider: Dr. 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 Yousuf Ortiz MD) No pertinent past surgical history Family History (Updated 02/24/24 @ 08:[address] Yousuf Ortiz MD) Mother Cancer, Onset Age: 68 gallbladder Diabetes pre Hypertension High cholesterol Father FH: ALS (amyotrophic lateral sclerosis), Onset Age: 67 Hypertension High cholesterol Grandmother Celiac disease Grandmother Dementia Grandfather High cholesterol Hypertension Heart disease Social History adopted: No household members: spouse and children housing: house number of children: 2 current occupational status: employed current occupation: [employer] current occupational exposures/hazards: No pets and animals: Yes (2) pets and animals: dog(s) history of recent travel: Yes ([facility] last week, [place] October 23) out of state: Yes out of country: No sexually active: Yes Smoking Status: Never smoker second hand exposure: No alcohol intake: former details: social 1-2 per month substance use type: does not use well-balanced diet: about half the time caffeine: No eating out: rarely or never during the past year weight has: remained stable what type of physical activity do you participate in: walking frequency: 1-2 times per week duration: 15-30 minutes/day lexx/holiness: Restoration seatbelt use: always do you feel safe at home: Yes additional social history: [employer] [facility] HPI Chief Complaint: est care Details: BRIGID BELLA, is a 38 F who presents to the office today to establish care. She was seeing somebody at the [facility] and last saw them last year. She is not due for any routine blood work. She is up to date on her screening. She does want her flu shot. She doesn't smoke and doesn't take any prescription medications. She reports she is eating healthy and staying active with walking. The patient has concerns about fatigue. She reports she will get a good night sleep sleep, but still feels tired when she gets up. She reports it has been going on for a couple of years. She reports it isn't getting worse, it just isn't getting better. She reports she does sleep well at night, reporting she falls asleep right away and doesn't have awakenings during the night. The patient doesn't nap during the day. She denies any snoring, waking up gasping, or being told she stops breathing at night. She doesn't fall asleep at random times during the day. She doesn't feel that she feels that she has to constantly move her legs. She denies any muscle aches, weight changes. She does feel that she is shedding hair, but notes she is still . She denies it coming out in clumps, however. She doesn't feel as though she is feeling depressed or anxious. She has no other questions or concerns at this time. ROS Const Constitutional: Positive for fatigue, headache(s) (occasional) and weakness; No body ache, chills, excessive sweating, fever(s), frequent falls, snoring, weight change or change in appetite Eyes Eyes: No blurry vision, change in vision, eye pain or Light sensitivity ENT ENT: Positive for headache(s) (occasional); No abnormal hearing, ear or mastoid pain, tinnitus, nasal congestion, neck pain or sore throat Resp Respiratory: No cough, shortness of breath, snoring or wheezing Cardio Cardiology: No chest pain at rest, chest pain with exertion, excessive sweating, dyspnea on exertion, lightheadedness, orthopnea, palpitations or oth (more content not included)... [facility] Visit (UCWSTR ) BRIGID BELLA ([id number]) 1985 F Date Time Provider Department 08/23/23 10:00 AM TITA HOUSER [facility] During your visit today, we recorded the following information about you: Temperature Pulse Respiration Blood pressure 97.2 degrees 64/minute 18/minute 100/65 Weight Last Period 61 kg 08/23/23 Tita Houser APRN.DROP WIRE OPERATOR 08/23/2023 10:35 AM Signed This note was created using NoteWriter. Subjective Brigid Dorman Shayne is a 38 year old female. 38 [...] history is provided by the patient. No language instructor was used. Eye Problem This is a [...] Negative for adenopathy. Does not bruise/bleed easily. Psychiatric/Behavioral : Negative for agitation and behavioral problems. Objective [...] Cardiovascular: Rate (more content not included)... Normal [facility] 06-29-2023 CNPN Telephone (FAMPWS) BRIGID BELLA ([id number]) 1985 F Date Time Provider Department 06/29/23 JAIRO ROMERO During your visit today, we recorded the following information about you: Juan A Villarreal LPN 06/29/2023 4:18 PM Signed ----- Message from Jairo Romero MD sent at 06/29/2023 2:37 PM EST ----- Cholesterol level improving on Lipitor 40 mg daily, but is still high. If she is tolerating 40 mg dosage without side effects, I would recommend increasing dosage to 80 mg daily. If agreeable, will send rx to requested pharmacy. Juan A Villarreal LPN 06/29/2023 4:22 PM Signed Pt [...] have her continue with diet as requested. Juan A Villarreal LPN 06/29/2023 4:53 PM Signed Attempted to reach pt by phone without success. Mailbox is full. BELEN Palacio Michelle, LPN 06/30/2023 8:45 AM Signed Patient telephoned, no answer. Message left to call office back for update. BELEN Trejo Laurie Lynn, LPN 07/06/2023 2:05 PM Signed Detailed VM left on pt's identified voicemail of information below. Juan A Villarreal LPN Allergies As of Date: 06/29/2023 [...] at bedtime. For cholesterol. Encounter Status:Closed by JUAN A VILLARREAL on 07/06/23 Normal [facility] Lipid 1996 panelon 4 Cholesterol [Mass/Vol] 221 mg/dL High <200 [facility] Comment on above: Order Comment: Speci men Type: BLOOD SPECIMEN Ordering Facility: [facility] Address: [address] [place] [address] Result Comment: <200 mg/dL, Desirable 200-239 mg/dL, Borderline high >239 mg/dL, High Performed By: #### 2 4331-1 #### [facility] CLIA [id number] [address] [place] [address] [place] Cholesterol in HDL [Mass/Vol] 63 mg/dL Normal >39 [facility] Comment on above: Order Comment: Speci men Type: BLOOD SPECIMEN Ordering Facility: [facility] Address: [address] [place] [address] Result Comment: 40-5 9 mg/dL, Acceptable >59 mg/dL, High: Negative risk factor for coronary heart disease <40 mg/dL, Low: Positive risk factor for coronary heart disease Performed By: #### 2 4331-1 #### [facility] CLIA [id number] [address] [place] [address] [place] Cholesterol in LDL [Mass/Vol] 150 mg/dL High <100 [facility] Comment on above: Order Comment: Speci men Type: BLOOD SPECIMEN Ordering Facility: [facility] Address: [address] [place] [address] Result Comment: <100 mg/dL, Optimal 100-129 mg/dL, Near optimal/above optimal 130-159 mg/dL, Borderline high 160-189 mg/dL, High >189 mg/dL, Very high Secondary prevention optimal LDL Cholesterol levels are recommended to be < 70 mg/dL Performed By: #### 2 4331-1 #### [facility] CLIA [id number] [address] [place] [address] [place] Cholesterol in LDL/Cholesterol in HDL [Mass ratio] 2.38 {ratio} Normal <2.54 [facility] Comment on above: Order Comment: Jacky armendariz Type: BLOOD SPECIMEN Ordering Facility: [facility] Address: [address] [place] [address] Result Comment: Ravi brown: 1. National Cholesterol Education Program ATP III Guideline At-A-Glance Quick Desk Reference: National Heart, Lung, and Blood [place]. National Institutes of Health. 2001: NIH Publication No. 01-3305. 2. An International Atherosclerosis Society position paper: global recommendations for the management of dyslipidemia: executive summary, Atherosclerosis. 2014: 232(2):410-413. Performed By: #### 2 4331-1 #### [facility] CLIA [id number] [address] [place] [address] Cholesterol in VLDL [Mass/Vol] 8 mg/dL Normal <30 [facility] Comment on above: Order Comment: Jacky armendariz Type: BLOOD SPECIMEN Ordering Facility: [facility] Address: [address] [place] [address] Performed By: #### 2 4331-1 #### [facility] CLIA [id number] [address] [place] [address] [place] Cholesterol non HDL [Mass/Vol] 158 mg/dL High <130 [facility] Comment on above: Order Comment: Jacky armendariz Type: BLOOD SPECIMEN Ordering Facility: [facility] Address: [address] [place] [address] Result Comment: <130 mg/dL, Optimal 130-159 mg/dL, Near optimal/above optimal 160-189 mg/dL, Borderline high 190-219 mg/dL, High >219 mg/dL, Very high Secondary prevention optimal non HDL Cholesterol levels are recommended to be <100 mg/dL Performed By: #### 2 4331-1 #### [facility] CLIA [id number] [address] [place] [address] [place] Cholesterol.total/Chol esterol in HDL [Mass ratio] 3.51 {ratio} Normal <5.10 [facility] Comment on above: Order Comment: Speci men Type: BLOOD SPECIMEN Ordering Facility: [facility] Address: [address] [place] [address] Performed By: #### 2 4331-1 #### [facility] CLIA [id number] [address] [place] [address] [place] FASTING TIME 13 hrs Normal [facility] Comment on above: Order Comment: Speci men Type: BLOOD SPECIMEN Ordering Facility: [facility] Address: [address] [place] [address] Performed By: #### 2 4331-1 #### [facility] CLIA [id number] [address] [place] [address] [place] Triglyceride [Mass/Vol] 40 mg/dL Normal <150 [facility] Comment on above: Order Comment: Speci men Type: BLOOD SPECIMEN Ordering Facility: [facility] Address: [address] [place] [address] Result Comment: <150 mg/dL, Normal 150-199 mg/dL, Borderline high 200-499 mg/dL, High >499 mg/dL, Very high Performed By: #### 2 4331-1 #### [facility] CLIA [id number] [address] [place] [address] [place] [facility] CNOVon 03-20-2023 CNOV Office Visit (FAMPWS ) BRIGID BELLA ([id number]) 1985 F Date Time Provider Department 03/20/23 8:00 AM JAIRO ROMERO FAMPWS During your visit today, we recorded the following information about you: Pulse Respiration Blood pressure Weight 64/minute 16/minute 106/66 61.2 kg Last Period 12/12/22 Jairo Romero MD 03/20/2023 7:41 PM Signed Chief Complaint Patient presents with: Physical HPI Brigid Bella is a 37 year old female [...] last [address] 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 Melasma on forehead may be slightly corporate officer. Head: Normocephalic, no masses, lesions, tenderness or [...] done Influenza Vaccine(1) due on 01/02/2023 Covid-19 Vaccine( season) due on 01/02/2023 DTaP,Tdap,Td Vaccine(9 - Td or Tdap) due on 04/07/2032 Hepatitis (more content not included)... Normal [facility] CBC W Auto Differential pane l (Bld)on 03-13-2023 Basophils (Bld) [#/Vol] 0.04 10*3/uL Normal <0.11 [facility] Comment on above: Order Comment: Speci men Type: BLOOD SPECIMEN Ordering Facility: [facility] Address: [address] [place] [address] Performed By: #### 5 7021-8 #### [facility] CLIA [id number] [address] [place] [address] [place] Basophils/100 WBC (Bld) 0.6 % Normal [facility] Comment on above: Order Comment: Speci men Type: BLOOD SPECIMEN Ordering Facility: [facility] Address: [address] [place] [address] Performed By: #### 5 7021-8 #### [facility] CLIA [id number] [address] [place] [address] [place] Differential cell count method Nom (Bld) Auto Normal [facility] Comment on above: Order Comment: Speci men Type: BLOOD SPECIMEN Ordering Facility: [facility] Address: [address] [place] [address] Performed By: #### 5 7021-8 #### [facility] CLIA [id number] [address] [place] [address] [place] Eosinophils (Bld) [#/Vol] 0.22 10*3/uL Normal <0.46 [facility] Comment on above: Order Comment: Speci men Type: BLOOD SPECIMEN Ordering Facility: [facility] Address: [address] [place] [address] Performed By: #### 5 7021-8 #### [facility] CLIA [id number] [address] [place] [address] [place] Eosinophils/100 WBC (Bld) 3.3 % Normal [facility] Comment on above: Order Comment: Speci men Type: BLOOD SPECIMEN Ordering Facility: [facility] Address: [address] [place] [address] Performed By: #### 5 7021-8 #### [facility] CLIA [id number] [address] [place] [address] [place] Erythrocyte distribution width (RBC) [Ratio] 12.6 % Normal 11.5-15.0 [facility] Comment on above: Order Comment: Speci men Type: BLOOD SPECIMEN Ordering Facility: [facility] Address: [address] [place] [address] Performed By: #### 5 7021-8 #### [facility] CLIA [id number] [address] [place] [address] [place] Hematocrit (Bld) [Volume fraction] 40.1 % Normal 36.0-46.0 [facility] Comment on above: Order Comment: Speci men Type: BLOOD SPECIMEN Ordering Facility: [facility] Address: [address] [place] [address] Performed By: #### 5 7021-8 #### [facility] CLIA [id number] [address] [place] [address] [place] Hemoglobin (Bld) [Mass/Vol] 13.0 g/dL Normal 11.5-15.5 [facility] Comment on above: Order Comment: Speci men Type: BLOOD SPECIMEN Ordering Facility: [facility] Address: [address] [place] [address] Performed By: #### 5 7021-8 #### [facility] CLIA [id number] [facility] [place] [address] [place] Immature granulocytes (Bld) [#/Vol] 10*3/uL Normal <0.10 [facility] Comment on above: Order Comment: Speci men Type: BLOOD SPECIMEN Ordering Facility: [facility] Address: [address] [place] [address] Performed By: #### 5 7021-8 #### [facility] CLIA [id number] [address] [place] [address] [place] Immature granulocytes/100 WBC (Bld) 0.1 % Normal [facility] Comment on above: Order Comment: Speci men Type: BLOOD SPECIMEN Ordering Facility: [facility] Address: [address] [place] [address] Performed By: #### 5 7021-8 #### [facility] CLIA [id number] [address] [place] [address] [place] Lymphocytes (Bld) [#/Vol] 2.45 10*3/uL Normal 1.00-4.00 [facility] Comment on above: Order Comment: Speci men Type: BLOOD SPECIMEN Ordering Facility: [facility] Address: [address] [place] [address] Performed By: #### 5 7021-8 #### [facility] CLIA [id number] [address] [place] [address] [place] Lymphocytes/100 WBC (Bld) 36.2 % Normal [facility] Comment on above: Order Comment: Speci men Type: BLOOD SPECIMEN Ordering Facility: [facility] Address: [address] [place] [address] Performed By: #### 5 7021-8 #### [facility] CLIA [id number] [address] [place] [address] [place] MCH (RBC) [Entitic mass] 29.1 pg Normal 26.0-34.0 [facility] Comment on above: Order Comment: Speci men Type: BLOOD SPECIMEN Ordering Facility: [facility] Address: [address] [place] [address] Performed By: #### 5 7021-8 #### [facility] CLIA [id number] [address] [place] [address] [place] MCHC (RBC) [Mass/Vol] 32.4 g/dL Normal 30.5-36.0 [facility] Comment on above: Order Comment: Speci men Type: BLOOD SPECIMEN Ordering Facility: [facility] Address: [address] [place] [address] Performed By: #### 5 7021-8 #### [facility] CLIA [id number] [address] [place] [address] [place] MCV (RBC) [Entitic vol] 89.7 fL Normal 80.0-100.0 [facility] Comment on above: Order Comment: Speci men Type: BLOOD SPECIMEN Ordering Facility: [facility] Address: [address] [place] [address] Performed By: #### 5 7021-8 #### [facility] CLIA [id number] [address] [place] [address] [place] Monocytes (Bld) [#/Vol] 0.60 10*3/uL Normal <0.87 [facility] Comment on above: Order Comment: Speci men Type: BLOOD SPECIMEN Ordering Facility: [facility] Address: [address] [place] [address] Performed By: #### 5 7021-8 #### [facility] CLIA [id number] [address] [place] [address] [place] Monocytes/100 WBC (Bld) 8.9 % Normal [facility] Comment on above: Order Comment: Speci men Type: BLOOD SPECIMEN Ordering Facility: [facility] Address: [address] [place] [address] Performed By: #### 5 7021-8 #### [facility] CLIA [id number] [address] [place] [address] [place] Neutrophils (Bld) [#/Vol] 3.44 10*3/uL Normal 1.45-7.50 [facility] Comment on above: Order Comment: Speci men Type: BLOOD SPECIMEN Ordering Facility: [facility] Address: [address] [place] [address] Performed By: #### 5 7021-8 #### [facility] CLIA [id number] [address] [place] [address] [place] Neutrophils/100 WBC (Bld) 50.9 % Normal [facility] Comment on above: Order Comment: Speci men Type: BLOOD SPECIMEN Ordering Facility: [facility] Address: [address] [place] [address] Performed By: #### 5 7021-8 #### [facility] CLIA [id number] [address] [place] [address] [place] Nucleated RBC (Bld) [#/Vol] 10*3/uL Normal <0.01 [facility] Comment on above: Order Comment: Speci men Type: BLOOD SPECIMEN Ordering Facility: [facility] Address: [address] [place] [address] Performed By: #### 5 7021-8 #### [facility] CLIA [id number] [address] [place] [address] [place] Nucleated RBC/100 WBC (Bld) [Ratio] 0.0 /100 WBC Normal [facility] Comment on above: Order Comment: Speci men Type: BLOOD SPECIMEN Ordering Facility: [facility] Address: [address] [place] [address] Performed By: #### 5 7021-8 #### [facility] CLIA [id number] [address] [place] [address] [place] Platelet mean volume (Bld) [Entitic vol] 11.4 fL Normal 9.0-12.7 [facility] Comment on above: Order Comment: Speci men Type: BLOOD SPECIMEN Ordering Facility: [facility] Address: [address] [place] [address] Performed By: #### 5 7021-8 #### [facility] CLIA [id number] [address] [place] [address] [place] Platelets (Bld) [#/Vol] 293 10*3/uL Normal 150-400 [facility] Comment on above: Order Comment: Speci men Type: BLOOD SPECIMEN Ordering Facility: [facility] Address: [address] [place] [address] Performed By: #### 5 7021-8 #### [facility] CLIA [id number] [address] [place] [address] [place] RBC (Bld) [#/Vol] 4.47 10*6/uL Normal 3.90-5.20 [facility] Comment on above: Order Comment: Speci men Type: BLOOD SPECIMEN Ordering Facility: [facility] Address: [address] [place] [address] Performed By: #### 5 7021-8 #### [facility] CLIA [id number] [address] [place] [address] [place] WBC (Bld) [#/Vol] 6.76 10*3/uL Normal 3.70-11.00 [facility] Comment on above: Order Comment: Speci men Type: BLOOD SPECIMEN Ordering Facility: [facility] Address: [address] [place] [address] Performed By: #### 5 7021-8 #### [facility] CLIA [id number] [address] [place] [address] [place] Comprehensive metabolic 2000 panelon 03-13-2023 Albumin [Mass/Vol] 4.7 g/dL Normal 3.9-4.9 [facility] Comment on above: Order Comment: Speci men Type: BLOOD SPECIMEN Ordering Facility: [facility] Address: [address] [place] [address] Performed By: #### 2 4331-1, 58576-8 #### [facility] CLIA [id number] [address] [place] [address] [place] ALP [Catalytic activity/Vol] 72 U/L Normal 34-123 [facility] Comment on above: Order Comment: Speci men Type: BLOOD SPECIMEN Ordering Facility: [facility] Address: [address] [place] [address] Performed By: #### 2 4331-1, 46755-8 #### [facility] CLIA [id number] [address] [place] [address] [place] ALT [Catalytic activity/Vol] 16 U/L Normal 7-38 [facility] Comment on above: Order Comment: Speci men Type: BLOOD SPECIMEN Ordering Facility: [facility] Address: [address] [place] [address] Performed By: #### 2 4331-1, #### [facility] CLIA [id number] [address] [address] [place] Anion gap [Moles/Vol] 12 mmol/L Normal 9-18 [facility] Comment on above: Order Comment: Speci men Type: BLOOD SPECIMEN Ordering Facility: [facility] Address: [address] [place] [address] Performed By: #### 2 4331-1, #### [facility] CLIA [id number] [address] [place] [address] [place] AST [Catalytic activity/Vol] 20 U/L Normal 13-35 [facility] Comment on above: Order Comment: Speci men Type: BLOOD SPECIMEN Ordering Facility: [facility] Address: [address] [place] [address] Performed By: #### 2 4331-1, #### [facility] CLIA [id number] [address] [place] [id number] [place] Bilirubin [Mass/Vol] 0.7 mg/dL Normal 0.2-1.3 [facility] Comment on above: Order Comment: Speci men Type: BLOOD SPECIMEN Ordering Facility: [facility] Address: [address] [place] [id number] Performed By: #### 2 4331-1, 04947-9 #### [facility] CLIA [id number] [address] [place] [address] [place] Calcium [Mass/Vol] 9.6 mg/dL Normal 8.5-10.2 [facility] Comment on above: Order Comment: Speci men Type: BLOOD SPECIMEN Ordering Facility: [facility] Address: [address] [place] [address] Performed By: #### 2 4331-1, 19347-4 #### [facility] CLIA [id number] [address] [place] [id number] [place] Chloride [Moles/Vol] 102 mmol/L Normal 97-105 [facility] Comment on above: Order Comment: Speci men Type: BLOOD SPECIMEN Ordering Facility: [facility] Address: [address] [place] [address] Performed By: #### 2 4331-1, #### [facility] CLIA [id number] [address] [place] [address] [place] CO2 [Moles/Vol] 25 mmol/L Normal 22-30 [facility] Comment on above: Order Comment: Speci men Type: BLOOD SPECIMEN Ordering Facility: [facility] Address: [address] [place] [address] Performed By: #### 2 4331-1, 77295-9 #### [facility] CLIA [id number] [address] [place] [address] [place] Creatinine [Mass/Vol] 0.72 mg/dL Normal 0.58-0.96 [facility] Comment on above: Order Comment: Speci men Type: BLOOD SPECIMEN Ordering Facility: [facility] Address: [address] [place] [address] Performed By: #### 2 4331-1, #### [facility] CLIA [id number] [address] [place] [address] [place] Creatinine and Glomerular filtration rate.predicted panel (S/P/Bld) 111 mL/min/1.73m??? Normal >=60 [facility] Comment on above: Order Comment: Speci men Type: BLOOD SPECIMEN Ordering Facility: [facility] Address: [address] [place] [address] Result Comment: Vanessa mated Glomerular Filtration Rate [...] actual GFR. Performed By: #### 2 4331-1, #### [facility] CLIA [id number] [address] [place] [address] [place] Glucose [Mass/Vol] 80 mg/dL Normal 74-99 [facility] Comment on above: Order Comment: Jacky armendariz Type: BLOOD SPECIMEN Ordering Facility: [facility] Address: [address] [place] [address] Result Comment: The [place] Diabetes [employer] (ADA) provides guidance for cutoff [...] Standards of Medical Care in Diabetes 2016, [place] [employer]. Diabetes Care. 2016.39(Suppl 1). Performed By: #### 2 433-, #### [facility] CLIA [id number] [address] [place] [id number] [place] Potassium [Moles/Vol] 4.3 mmol/L Normal 3.7-5.1 [facility] Comment on above: Order Comment: Jacky armendariz Type: BLOOD SPECIMEN Ordering Facility: [facility] Address: [address] [place] [id number] Performed By: #### 2 433-, #### [facility] CLIA [id number] [address] [address] [place] Protein [Mass/Vol] 7.5 g/dL Normal 6.3-8.0 [facility] Comment on above: Order Comment: Speci men Type: BLOOD SPECIMEN Ordering Facility: [facility] Address: [address] [place] [address] Performed By: #### 2 4331-1, #### [facility] CLIA [id number] [address] [place] [address] [place] Sodium [Moles/Vol] 139 mmol/L Normal 136-144 [facility] Comment on above: Order Comment: Speci men Type: BLOOD SPECIMEN Ordering Facility: [facility] Address: [address] [place] [address] Performed By: #### 2 4331-1, #### [facility] CLIA [id number] [address] [place] [address] [place] Urea nitrogen [Mass/Vol] 13 mg/dL Normal 7-21 [facility] Comment on above: Order Comment: Speci men Type: BLOOD SPECIMEN Ordering Facility: [facility] Address: [address] [place] [address] Performed By: #### 2 4331-1, #### [facility] CLIA [id number] [address] [place] [id number] [place] Lipid 1996 panelon 3 Cholesterol [Mass/Vol] 279 mg/dL High <200 [facility] Comment on above: Order Comment: Speci men Type: BLOOD SPECIMEN Ordering Facility: [facility] Address: [address] [place] [address] Result Comment: <200 mg/dL, Desirable 200-239 mg/dL, Borderline high >239 mg/dL, High Performed By: #### 2 4331-1, 20396-5 #### [facility] CLIA [id number] [address] [place] [id number] [place] Cholesterol in HDL [Mass/Vol] 73 mg/dL Normal >39 [facility] Comment on above: Order Comment: Jacky kala Type: BLOOD SPECIMEN Ordering Facility: [facility] Address: [address] [place] [address] Result Comment: 40-5 9 mg/dL, Acceptable >59 mg/dL, High: Negative risk factor for coronary heart disease <40 mg/dL, Low: Positive risk factor for coronary heart disease Performed By: #### 2 4331-1, 32342-9 #### [facility] CLIA [id number] [address] [facility] [address] [place] Cholesterol in LDL [Mass/Vol] 197 mg/dL High <100 [facility] Comment on above: Order Comment: Jacky kala Type: BLOOD SPECIMEN Ordering Facility: [facility] Address: [address] [place] [address] Result Comment: <100 mg/dL, Optimal 100-129 mg/dL, Near optimal/above optimal 130-159 mg/dL, Borderline high 160-189 mg/dL, High >189 mg/dL, Very high Secondary prevention optimal LDL Cholesterol levels are recommended to be < 70 mg/dL Performed By: #### 2 4331-1, 04700-7 #### [facility] CLIA [id number] [address] [place] Cholesterol in LDL/Cholesterol in HDL [Mass ratio] 2.70 {ratio} High <2.54 [facility] Comment on above: Order Comment: Yesseniabi armendariz Type: BLOOD SPECIMEN Ordering Facility: [facility] Address: [address] [place] [address] Result Comment: Refe rence: 1. National Cholesterol Education Program ATP III Guideline At-A-Glance Quick Desk Reference: National Heart, Lung, and Blood [place]. National Institutes of Health. 2001: NIH Publication No. 01-3305. 2. An International Atherosclerosis Society position paper: global recommendations for the management of dyslipidemia: executive summary, Atherosclerosis. 2014: 232(2):410-413. Performed By: #### 2 4331-1, 31106-2 #### [facility] CLIA [id number] [address] [place] [address] [place] Cholesterol in VLDL [Mass/Vol] 9 mg/dL Normal <30 [facility] Comment on above: Order Comment: Speci men Type: BLOOD SPECIMEN Ordering Facility: [facility] Address: [address] [place] [address] Performed By: #### 2 4331-1, #### [facility] CLIA [id number] [address] [place] [address] [place] Cholesterol non HDL [Mass/Vol] 206 mg/dL High <130 [facility] Comment on above: Order Comment: Speci men Type: BLOOD SPECIMEN Ordering Facility: [facility] Address: [address] [place] [address] Result Comment: <130 mg/dL, Optimal 130-159 mg/dL, Near optimal/above optimal 160-189 mg/dL, Borderline high 190-219 mg/dL, High >219 mg/dL, Very high Secondary prevention optimal non HDL Cholesterol levels are recommended to be <100 mg/dL Performed By: #### 2 4331-1, #### [facility] CLIA [id number] [address] [place] [address] [place] Cholesterol.total/Chol esterol in HDL [Mass ratio] 3.82 {ratio} Normal <5.10 [facility] Comment on above: Order Comment: Speci men Type: BLOOD SPECIMEN Ordering Facility: [facility] Address: [address] [place] [address] Performed By: #### 2 4331-1, #### [facility] CLIA [id number] [address] [place] [address] [place] FASTING TIME 14 hrs Normal [facility] Comment on above: Order Comment: Speci men Type: BLOOD SPECIMEN Ordering Facility: [facility] Address: [address] [place] [address] Performed By: #### 2 4331-1, 59256-0 #### [facility] CLIA [id number] [address] [facility] [address] [place] Triglyceride [Mass/Vol] 43 mg/dL Normal <150 [facility] Comment on above: Order Comment: Speci men Type: BLOOD SPECIMEN Ordering Facility: [facility] Address: [address] [place] [address] Result Comment: <150 mg/dL, Normal 150-199 mg/dL, Borderline high 200-499 mg/dL, High >499 mg/dL, Very high Performed By: #### 2 4331-1, 29475-2 #### [facility] CLIA [id number] [address] [place] CNOVon 12-26-2022 CNOV Office Visit (FAMPWS ) SHAYNEBRIGID D ([id number]) 1985 F Date Time Provider Department 12/26/22 8:40 AM JAIRO ROMERO During your visit today, we recorded the following information about you: Pulse Respiration Blood pressure Weight 58/minute 16/minute 90/60 62.1 kg Height 1.626 m Jairo Romero MD 12/26/2022 10:45 AM Signed Chief Complaint Patient presents with: Establish Care: Wellness visit paperwork HPI Brigid Dorman Shayne is a 37 year old [...] 58 Resp 16 Ht 162.6 cm (5' 4) Wt 62.1 kg (137 lb) LMP (LMP [...] which included preparing to see the patient, wamy-og-voeu patient care, completing clinical documentation, obtaining and/or reviewing separately obtained history, performing a medically appropriate examination, counseling and educating the patient/family/caregiv er, and ordering medications, tests, or procedures. Jairo Romero MD Allergies As of Date: 12/26/2022 (No Known Allergies) Date Reviewed: 12/26/2022 Reviewed by: Jairo Romero MD - Fully Assessed Reason for Visit: Establish Care [42] Cmt: Wellness visit paperwork Primary Visit Diagnosis:Melasma [L81.1] Other Visit Diagnoses:Encounter to establish care [Z76.89] Depression screening [Z13.31] Order(s):DEPRESSION SCREENING/ASSESSMENT [[id number]] Order (more content not included)... Normal [facility] Absolute lymphocyte countOrd ered By: Trish Murray on 06-17-2022 Lymphocytes Auto (Unsp spec) [#/Vol] 2.93 10*3/uL 0.83-4.51 [facility] Basophil percentageOrdered B y: Trish Murray on 06-17-2022 Basophils/100 WBC (Bld) 0.2 % 0-1 [facility] Eosinophils/100 WBC (Bld) 0.7 % 0-5 [facility] Neutrophils (Bld) [#/Vol] 6.9 10*3/uL 2.0-7.7 [facility] Neutrophils/100 WBC (Bld) 62.7 % 47-70 [facility] WBC (Bld) [#/Vol] 10.9 10*3/uL 4.4-11.0 [facility] Blood erythrocytes count (nu mber/volume)Ordered By: Trish Murray on 06-17-2022 RBC (Bld) [#/Vol] 4.03 10*6/uL 4.2-5.4 [facility] Blood hemoglobin measurement (mass/volume)Ordered By: Trish Murray on 06-17-2022 Hemoglobin (Bld) [Mass/Vol] 12.3 g/dL 12.0-15.0 [facility] Blood lymphocytes/100 leukoc ytesOrdered By: Trish Murray on 06-17-2022 Lymphocytes/100 WBC (Bld) 26.8 % 19-41 [facility] Blood monocytes/100 leukocyt esOrdered By: Trish Murray on 06-17-2022 Monocytes/100 WBC (Bld) 9.2 % 0-10 [facility] Blood platelet mean volumeOr dered By: Trish Murray on 06-17-2022 Platelet mean volume (Bld) [Entitic vol] 12.9 fL 6.2-12.0 [facility] Determination of erythrocyte mean corpuscular volume (MCV)Ordered By: Trish Murray on 06-17-2022 MCV (RBC) [Entitic vol] 91.6 fL 81-99 [facility] Hematocrit Auto (Bld) [Volum e fraction]Ordered By: Trish Murray on 06-17-2022 Hematocrit (Bld) [Volume fraction] 36.9 % 37-47 [facility] Laboratory - Hematology and Cell countsOrdered By: Trish Murray on 06-17-2022 Erythrocyte distribution width (RBC) [Entitic vol] 45.1 fL 35.1-43.9 [facility] Erythrocyte distribution width (RBC) [Ratio] 13.4 % 11.6-14.6 [facility] Immature granulocytes/100 WBC (Bld) 0.400 % 0.0-0.9 [facility] Comment on above: IG% - Immature Granu locytes (promyelocytes, myelocytes and metamyelocytes) > 1% indicates that a LEFT SHIFT is Present. MCH (RBC) [Entitic mass] 30.5 pg 27.0-32.0 [facility] Nucleated RBC/100 WBC (Bld) [Ratio] 0 % 0-5 [facility] MCHC Auto (RBC) [Mass/Vol]Or dered By: Trish Murray on 06-17-2022 MCHC (RBC) [Mass/Vol] 33.3 g/dL 32-36 [facility] Platelets bldOrdered By: Jossy Murray on 06-17-2022 Platelets (Bld) [#/Vol] 206 10*3/uL 150-450 [facility] Laboratory - Chemistry and C hemistry - challengeon 06-13-2022 Glucose Ql (U) Negative [facility] Laboratory - Urinalysison Protein Ql (U) Negative [facility] Laboratory - Chemistry and C hemistry - challengeon 05-30-2022 Glucose Ql (U) Negative [facility] Laboratory - Urinalysison Protein Ql (U) Negative [facility] No Panel InformationOrdered By: Dr. Mcconnell on 05-27-2022 Group B Streptococcus Culture Group B Beta Streptococcus is not isolated. [facility] Absolute lymphocyte countOrd ered By: Dr. Polk on 05-23-2022 Lymphocytes Auto (Unsp spec) [#/Vol] 1.93 10*3/uL 0.83-4.51 [facility] Basophil percentageOrdered B y: Dr. Polk on 05-23-2022 Basophils/100 WBC (Bld) 0.2 % 0-1 [facility] Eosinophils/100 WBC (Bld) 0.8 % 0-5 [facility] Neutrophils (Bld) [#/Vol] 7.6 10*3/uL 2.0-7.7 [facility] Neutrophils/100 WBC (Bld) 71.6 % 47-70 [facility] WBC (Bld) [#/Vol] 10.6 10*3/uL 4.4-11.0 [facility] Blood erythrocytes count (nu mber/volume)Ordered By: Dr. Polk on 05-23-2022 RBC (Bld) [#/Vol] 3.97 10*6/uL 4.2-5.4 [facility] Blood hemoglobin measurement (mass/volume)Ordered By: Dr. Polk on 05-23-2022 Hemoglobin (Bld) [Mass/Vol] 12.0 g/dL 12.0-15.0 [facility] Blood lymphocytes/100 leukoc ytesOrdered By: Dr. Polk on 05-23-2022 Lymphocytes/100 WBC (Bld) 18.1 % 19-41 [facility] Blood monocytes/100 leukocyt esOrdered By: Dr. Polk on 05-23-2022 Monocytes/100 WBC (Bld) 8.7 % 0-10 [facility] Blood platelet mean volumeOr dered By: Dr. Pokl on 05-23-2022 Platelet mean volume (Bld) [Entitic vol] 11.6 fL 6.2-12.0 [facility] Determination of erythrocyte mean corpuscular volume (MCV)Ordered By: Dr. Polk on 05-23-2022 MCV (RBC) [Entitic vol] 90.9 fL 81-99 [facility] Hematocrit Auto (Bld) [Volum e fraction]Ordered By: Dr. Polk on 05-23-2022 Hematocrit (Bld) [Volume fraction] 36.1 % 37-47 [facility] Laboratory - Chemistry and C hemistry - challengeon 05-23-2022 Glucose Ql (U) Negative [facility] Laboratory - Hematology and Cell countsOrdered By: Dr. Polk on 05-23-2022 Erythrocyte distribution width (RBC) [Entitic vol] 45.3 fL 35.1-43.9 [facility] Erythrocyte distribution width (RBC) [Ratio] 13.5 % 11.6-14.6 [facility] Immature granulocytes/100 WBC (Bld) 0.600 % 0.0-0.9 [facility] Comment on above: IG% - Immature Granu locytes (promyelocytes, myelocytes and metamyelocytes) > 1% indicates that a LEFT SHIFT is Present. MCH (RBC) [Entitic mass] 30.2 pg 27.0-32.0 [facility] Nucleated RBC/100 WBC (Bld) [Ratio] 0 % 0-5 [facility] Laboratory - Urinalysison Protein Ql (U) Negative [facility] MCHC Auto (RBC) [Mass/Vol]Or dered By: Dr. Polk on 05-23-2022 MCHC (RBC) [Mass/Vol] 33.2 g/dL 32-36 [facility] Platelets bldOrdered By: Dr. Polk on 05-23-2022 Platelets (Bld) [#/Vol] 236 10*3/uL 150-450 [facility] Laboratory - Chemistry and C hemistry - challengeon 05-09-2022 Glucose Ql (U) Negative [facility] Laboratory - Urinalysison Protein Ql (U) Negative [facility] Laboratory - Chemistry and C hemistry - challengeon 04-24-2022 Glucose Ql (U) Negative [facility] Laboratory - Urinalysison Protein Ql (U) Negative [facility] Laboratory - Chemistry and C hemistry - challengeon 04-07-2022 Glucose Ql (U) Negative [facility] Laboratory - Urinalysison Protein Ql (U) Negative [facility] Absolute lymphocyte countOrd ered By: Dr. Polk on 03-21-2022 Lymphocytes Auto (Unsp spec) [#/Vol] 1.68 10*3/uL 0.83-4.51 [facility] Basophil percentageOrdered B y: Dr. Polk on 03-21-2022 Basophils/100 WBC (Bld) 0.2 % 0-1 [facility] Eosinophils/100 WBC (Bld) 0.7 % 0-5 [facility] Neutrophils (Bld) [#/Vol] 7.8 10*3/uL 2.0-7.7 [facility] Neutrophils/100 WBC (Bld) 74.5 % 47-70 [facility] WBC (Bld) [#/Vol] 10.5 10*3/uL 4.4-11.0 [facility] Blood erythrocytes count (nu mber/volume)Ordered By: Dr. Polk on 03-21-2022 RBC (Bld) [#/Vol] 3.35 10*6/uL 4.2-5.4 [facility] Blood hemoglobin measurement (mass/volume)Ordered By: Dr. Polk on 03-21-2022 Hemoglobin (Bld) [Mass/Vol] 10.4 g/dL 12.0-15.0 [facility] Blood lymphocytes/100 leukoc ytesOrdered By: Dr. Polk on 03-21-2022 Lymphocytes/100 WBC (Bld) 16.1 % 19-41 [facility] Blood monocytes/100 leukocyt esOrdered By: Dr. Polk on 03-21-2022 Monocytes/100 WBC (Bld) 8.1 % 0-10 [facility] Blood platelet mean volumeOr dered By: Dr. Polk on 03-21-2022 Platelet mean volume (Bld) [Entitic vol] 10.9 fL 6.2-12.0 [facility] Determination of erythrocyte mean corpuscular volume (MCV)Ordered By: Dr. Polk on 03-21-2022 MCV (RBC) [Entitic vol] 90.4 fL 81-99 [facility] Gestational diabetes screen 1-hour screen with 50g oral glucose loadOrdered By: Dr. Polk on 03-21-2022 Glucose 1 Hr post 50 g glucose PO [Mass/Vol] 92 mg/dL 70-140 [facility] Hematocrit Auto (Bld) [Volum e fraction]Ordered By: Dr. Polk on 03-21-2022 Hematocrit (Bld) [Volume fraction] 30.3 % 37-47 [facility] Laboratory - Chemistry and C hemistry - challengeon 03-21-2022 Glucose Ql (U) Negative [facility] Laboratory - Hematology and Cell countsOrdered By: Dr. Polk on 03-21-2022 Erythrocyte distribution width (RBC) [Entitic vol] 40.5 fL 35.1-43.9 [facility] Erythrocyte distribution width (RBC) [Ratio] 12.4 % 11.6-14.6 [facility] Immature granulocytes/100 WBC (Bld) 0.400 % 0.0-0.9 [facility] Comment on above: IG% - Immature Granu locytes (promyelocytes, myelocytes and metamyelocytes) > 1% indicates that a LEFT SHIFT is Present. MCH (RBC) [Entitic mass] 31.0 pg 27.0-32.0 [facility] Nucleated RBC/100 WBC (Bld) [Ratio] 0 % 0-5 [facility] Laboratory - Urinalysison [facility]l (U) [facility] [Mass/Vol]Or dered By: Dr. Polk on 03-21-2022 MCHC (RBC) [Mass/Vol] 34.3 g/dL 32-36 [facility] Platelets bldOrdered By: Dr. Polk on 03-21-2022 Platelets (Bld) [#/Vol] 241 10*3/uL 150-450 [facility] Laboratory - Chemistry and C hemistry - challengeon 01-24-2022 Glucose Ql (U) Negative [facility] Work Phone: Laboratory - Urinalysison Protein Ql (U) Negative [facility] Work Phone: No Panel Informationon 01-24 Toxoplasma Comment Comment . [facility] Work Phone: Comment on above: It is presumed the p atient has not been infected with andis not undergoing an acute infection with Toxoplasma. Ifsymptoms persist, submit a new specimen after three weeks. Serum Toxoplasma gondii IgG antibody assay (units/volume)on 01-24-2022 T. gondii IgG Qn (S) < 3.0 IU/mL 0.0-7.1 [facility] Work Phone: Comment on above: Negative <7.2 Equivo олег 7.2 - 8.7 Positive >8.7Performed at: [address] [id number] Director: Kwabena Cifuentes PhD, Phone: [phone] Serum Toxoplasma gondii IgM antibody assay by immunoassay (units/volume)on 01-24-2022 T. gondii IgM IA Qn (S) < 3.0 AU/mL 0.0-7.9 [facility] Work Phone: Comment on above: Negative <8.0 Equivo олег 8.0 - 9.9 Positive >9.9 Serum or plasma cytomegalovi rick (CMV) IgG antibody assay (units/volume)on 01-24-2022 CMV IgG Qn < 0.60 U/mL 0.00-0.59 [facility] Work Phone: Comment on above: Negative <0.60 Equiv ocal 0.60 - 0.69 Positive >0.69 Serum or plasma cytomegalovi rick (CMV) IgM antibody assay (units/volume)on 01-24-2022 CMV IgM Qn < 30.0 AU/mL 0.0-29.9 [facility] Work Phone: Comment on above: Negative <30.0 Equiv ocal 30.0 - 34.9 Positive >34.9A positive result is generally indicative of acuteinfection, reactivation or persistent IgM production.Performed at: [facility] [employer] [id number] Director: Kwabena Cifuentes PhD, Phone: [phone] UA DIP, URINE (POC)on 2021 BILIRUBIN UA (POCT) Negative Negative [facility] CLARITY UA (POCT) Clear [facility] COLOR UA (POCT) Yellow [facility] GLUCOSE UA (POCT) Negative Negative mg/dL [facility] HEMOGLOBIN/BLOOD UA (POCT) Negative Negative [facility] KETONE UA (POCT) Negative Negative mg/dL [facility] LEUKOCYTES UA (POCT) Negative Negative [facility] NITRITE UA (POCT) Negative Negative [facility] PH UA (POCT) 6.5 4.5 - 8.0 [facility] Protein Ql (U) Negative Negative mg/dL [facility] SPECIFIC GRAVITY UA (POCT) <=1.005 Abnormal 1.005 - 1.030 [facility] UROBILINOGEN UA (POCT) 0.2 E.U./dL Dianne l E.U./dL [facility] Laboratory - Chemistry and C hemistry - challengeon 12-20-2021 Glucose Ql (U) Negative [facility] Work Phone: Laboratory - Urinalysison Protein Ql (U) Negative [facility] Work Phone: Absolute lymphocyte counton 12-06-2021 Lymphocytes Auto (Unsp spec) [#/Vol] 1.77 10*3/uL 0.83-4.51 [facility] Work Phone: Basophil percentageon 2021 Basophils/100 WBC (Bld) 0.2 % 0-1 [facility] Work Phone: Eosinophils/100 WBC (Bld) 0.8 % 0-5 [facility] Work Phone: Neutrophils (Bld) [#/Vol] 7.4 10*3/uL 2.0-7.7 [facility] Work Phone: Neutrophils/100 WBC (Bld) 74.1 % 47-70 [facility] Work Phone: WBC (Bld) [#/Vol] 10.0 10*3/uL 4.4-11.0 [facility] Work Phone: Blood erythrocytes count (nu mber/volume)on 12-06-2021 RBC (Bld) [#/Vol] 4.26 10*6/uL 4.2-5.4 [facility] Work Phone: Blood hemoglobin measurement (mass/volume)on 12-06-2021 Hemoglobin (Bld) [Mass/Vol] 12.9 g/dL 12.0-15.0 [facility] Work Phone: Blood lymphocytes/100 leukoc yteson 12-06-2021 Lymphocytes/100 WBC (Bld) 17.8 % 19-41 [facility] Work Phone: Blood monocytes/100 leukocyt eson 12-06-2021 Monocytes/100 WBC (Bld) 6.6 % 0-10 [facility] Work Phone: Blood platelet mean volumeon 12-06-2021 Platelet mean volume (Bld) [Entitic vol] 11.3 fL 6.2-12.0 [facility] Work Phone: Determination of erythrocyte mean corpuscular volume (MCV)on 12-06-2021 MCV (RBC) [Entitic vol] 90.1 fL 81-99 [facility] Work Phone: HIV 1 and HIV-2 antibody ass ay with HIV-1 p24 antigen detectionon 12-06-2021 HIV 1+2 Ab+HIV1 p24 Ag IA Ql Non-Reactive Nonreactive [facility] Work Phone: Hematocrit Auto (Bld) [Volum e fraction]on 12-06-2021 Hematocrit (Bld) [Volume fraction] 38.4 % 37-47 [facility] Work Phone: Laboratory - Hematology and Cell countson 12-06-2021 Erythrocyte distribution width (RBC) [Entitic vol] 41.9 fL 35.1-43.9 [facility] Work Phone: Erythrocyte distribution width (RBC) [Ratio] 13.0 % 11.6-14.6 [facility] Work Phone: Immature granulocytes/100 WBC (Bld) 0.500 % 0.0-0.9 [facility] Work Phone: Comment on above: IG% - Immature Granu locytes (promyelocytes, myelocytes and metamyelocytes) > 1% indicates that a LEFT SHIFT is Present. MCH (RBC) [Entitic mass] 30.3 pg 27.0-32.0 [facility] Work Phone: Nucleated RBC/100 WBC (Bld) [Ratio] 0 % 0-5 [facility] Work Phone: MCHC Auto (RBC) [Mass/Vol]on 12-06-2021 MCHC (RBC) [Mass/Vol] 33.6 g/dL 32-36 [facility] Work Phone: No Panel Informationon 12-06 Hepatitis B Surface Antigen Non-Reactive Nonreactive [facility] Work Phone: Hepatitis C Antibody Non-Reactive Nonreactive [facility] Work Phone: Comment on above: Non Reactive: < 0.8 Equivocal: >/= 0.8 to < 1.0 Reactive: >/= 1.0The CDC recommends that a reactive/equivocal HCV antibody result be followed up by the HCV Nucleic Acid Amplificationtest (169652) Miscellaneous Test Comment MAILED SPECIMEN [facility] Work Phone: Rubella IgG Antibody Reactive Nonreactive [facility] Work Phone: Comment on above: Antibody Results Int erpretation of Immune Status Non Reactive Presumed Non-Immune Equivocal Equivocal Reactive Presumed Immune Platelets bldon 12-06-2021 Platelets (Bld) [#/Vol] 300 10*3/uL 150-450 [facility] Work Phone: Serum Treponema species anti body detectionon 12-06-2021 Treponema sp Ab Ql (S) Non-Reactive [facility] Work Phone: Chlamydia trachomatis rRNA d etection by probe and target amplification methodon 11-21-2021 C. trachomatis rRNA SINA+probe Ql (Unsp spec) Negative Negative [facility] Work Phone: Laboratory - Drug toxicology on 11-21-2021 Amphetamines Ql (U) Negative <1000 ng/mL [facility] Work Phone: Benzodiazepines Ql (U) Negative < 200 ng/mL [facility] Work Phone: Cannabinoids Screen Ql (U) Negative < 50 ng/mL [facility] Work Phone: Cocaine Ql (U) Negative < 300 ng/mL [facility] Work Phone: Opiates Ql (U) Negative < 300 ng/mL [facility] Work Phone: Laboratory - Microbiology an d Antimicrobial susceptibilityon 11-21-2021 N. gonorrhoeae DNA SINA+probe Ql (Unsp spec) Negative Negative [facility] Work Phone: Comment on above: Performed at: =[facility] Esther timmons [address] [id number] Director: Maya Barrett MD, Phone: [phone] No Panel Informationon 11-21 MDMA (Ecstasy) Screen Negative < 500 ng/mL [facility] Work Phone: Urine Barbiturates Screen Negative < 200 ng/mL [facility] Work Phone: Urine Drug Screen Comment [facility] Work Phone: Comment on above: CONFIRMATORY TESTING FOR ALL POSITIVE URINE DRUG SCREENRESULTS WILL ONLY BE SENT OUT UPON PHYSICIAN ORDER. VISTA Urine Drug Screen methods provide only preliminaryanalytical test results. A more specific alternate chemicalmethod must be used in order to obtain a confirmedanalytical result. Gas chromatography/mass spectrometery(GC/MS) is the preferred confirmatory method. Clinicalconsideration and professional judgement should be appliedto any drug of abuse test result, particularly whenpreliminary positive results are used. URINE TCA TESTING MUST BE ORDERED SEPARATELY. USE TESTMNEMONIC: [facility] Urine Methadone Screen Negative < 300 ng/mL [facility] Work Phone: Urine phencyclidine (PCP) de tectionon 11-21-2021 Phencyclidine Ql (U) Negative < 25 ng/mL [facility] Work Phone: CBC with differentialon 10-03 BASO # 0.1 K CUMM Normal 0.0-0.2 [facility] Comment on above: Order Comment: Items in this order include: Comprehensive Metabolic Panel, Lipid Panel, Vit D 25 [place] (Total), CBC with differential, , Testing Performed By: [facility] [facility] [place] [address] Dr. Kathy Jhaveri, Chipper Performed By: #### C 215, [id number], C47, C8 #### [facility] [address] [facility] [address] [place] [address] Basophils/100 WBC (Bld) 0.6 % Normal 0.0-3.0 [facility] Comment on above: Order Comment: Items in this order include: Comprehensive Metabolic Panel, Lipid Panel, Vit D 25 [place] (Total), CBC with differential, , Testing Performed By: [facility] [place] [address] Dr. Kathy Jhaveri, Chipper Performed By: #### C 215, [id number], C47, C8 #### [facility], [facility]. [address] [place] [address] EOS # 0.1 K CUMM Normal 0.0-0.4 [facility] Comment on above: Order Comment: Items in this order include: Comprehensive Metabolic Panel, Lipid Panel, Vit D 25 [place] (Total), CBC with differential, , Testing Performed By: [facility] [address] [place] [address] Dr. Kathy Jhaveri, Chipper Performed By: #### C 215, [id number], C47, C8 #### [facility], [facility]. [address] [place] [address] [address] [place] [address] Eosinophils/100 WBC (Bld) 0.9 % Normal 0.0-7.0 [facility] Comment on above: Order Comment: Items in this order include: Comprehensive Metabolic Panel, Lipid Panel, Vit D 25 [place] (Total), CBC with differential, , Testing Performed By: [facility] [address] [place] [address] Dr. Kathy Jhaveri, Chipper Performed By: #### C 215, [id number], C47, C8 #### [facility], [facility]. [address] [place] [address] [address] [place] [address] Erythrocyte distribution width (RBC) [Ratio] 13.1 % Normal 11.5-15.5 [facility] Comment on above: Order Comment: Items in this order include: Comprehensive Metabolic Panel, Lipid Panel, Vit D 25 [place] (Total), CBC with differential, , Testing Performed By: [facility] [address] [place] [address] [address] [address] Kathy Jhaveri, Chipper Performed By: #### C 215, [id number], C47, C8 #### [facility], [facility]. [address] [place] [address] [address] [place] [address] Hematocrit (Bld) [Volume fraction] 39.5 % Normal 37.0-47.0 [facility] Comment on above: Order Comment: Items in this order include: Comprehensive Metabolic Panel, Lipid Panel, Vit D 25 [place] (Total), CBC with differential, , Testing Performed By: [facility] [address] [place] [address]. [place] [address] Dr. Kathy Jhaveri, Chipper Performed By: #### C 215, [id number], C47, C8 #### [facility] [address] [place] [address] [address] [place] [address] Hemoglobin (Bld) [Mass/Vol] 12.6 g/dL Normal 11.5-15.5 [facility] Comment on above: Order Comment: Items in this order include: Comprehensive Metabolic Panel, Lipid Panel, Vit D 25 [place] (Total), CBC with differential, , Testing Performed By: [facility] [address] [place] [address] [address] [address] Kathy Jhaveri, Chipper Performed By: #### C 215, [id number], C47, C8 #### [facility], [facility]. [address] [place] [address] [address] [place] [address] ImmGrn # 0.0 K CUMM Normal 0.0-0.3 [facility] Comment on above: Order Comment: Items in this order include: Comprehensive Metabolic Panel, Lipid Panel, Vit D 25 [place] (Total), CBC with differential, , Testing Performed By: [facility] [address] [place] [address] [address] [address] Kathy Jhaveri, Chipper Performed By: #### C 215, [id number], C47, C8 #### [facility]. [address] [place] [address] [address] [place] [address] ImmGrn % 0.3 % Normal 0.0-3.0 [facility] Comment on above: Order Comment: Items in this order include: Comprehensive Metabolic Panel, Lipid Panel, Vit D 25 [place] (Total), CBC with differential, , Testing Performed By: [facility] [address] [place] [address] [address] Kathy Jhaveri, Chipper Performed By: #### C 215, [id number], C47, C8 #### [facility], [facility]. [address] [place] [address] [address] [place] [address] LYMPH # 2.0 K CUMM Normal 0.7-4.5 [facility] Comment on above: Order Comment: Items in this order include: Comprehensive Metabolic Panel, Lipid Panel, Vit D 25 [place] (Total), CBC with differential, , Testing Performed By: [facility] [address] [place] [address]. [place] [address] Dr. Kathy Jhaveri, Chipper Performed By: #### C 215, [id number], C47, C8 #### [facility], [facility]. [address] [place] [address] [address] [place] [address] Lymphocytes/100 WBC (Bld) 25.7 % Normal 14.0-46.0 [facility] Comment on above: Order Comment: Items in this order include: Comprehensive Metabolic Panel, Lipid Panel, Vit D 25 [place] (Total), CBC with differential, , Testing Performed By: [facility] [address] [place] [address] Dr. Kathy Jhaveri, Chipper Performed By: #### C 215, [id number], C47, C8 #### [facility], [facility]. [address] [place] [address] [place] [address] MCH (RBC) [Entitic mass] 29.3 pg Normal 27.0-31.0 [facility] Comment on above: Order Comment: Items in this order include: Comprehensive Metabolic Panel, Lipid Panel, Vit D 25 [place] (Total), CBC with differential, , Testing Performed By: [facility] [address] [place] [address] Kathy Jhaveri, Chipper Performed By: #### C 215, [id number], C47, C8 #### [facility], [facility]. [address] [place] [address] [place] [address] MCHC (RBC) [Mass/Vol] 31.9 g/dL Low 32.0-36.0 [facility] Comment on above: Order Comment: Items in this order include: Comprehensive Metabolic Panel, Lipid Panel, Vit D 25 [place] (Total), CBC with differential, , Testing Performed By: [facility] [address] [place] [address] [address] [address] Kathy Jhaveri, Chipper Performed By: #### C 215, [id number], C47, C8 #### [facility], [facility]. [address] [place] [address] [address] [place] [address] MCV (RBC) [Entitic vol] 91.9 fL Normal 78.0-100.0 [facility] Comment on above: Order Comment: Items in this order include: Comprehensive Metabolic Panel, Lipid Panel, Vit D 25 [place] (Total), CBC with differential, , Testing Performed By: [facility] [address] [place] [address]. [place] [address] Dr. Kathy Jhaveri, Chipper Performed By: #### C 215, [id number], C47, C8 #### [facility] [address] [place] [address] [place] [address] MONO # 0.6 K CUMM Normal 0.1-1.0 [facility] Comment on above: Order Comment: Items in this order include: Comprehensive Metabolic Panel, Lipid Panel, Vit D 25 [place] (Total), CBC with differential, , Testing Performed By: [facility] [address] [place] [address] Dr. Kathy Jhaveri, Chipper Performed By: #### C 215, [id number], C47, C8 #### [facility] [address] [place] [address] [place] [address] Monocytes/100 WBC (Bld) 7.7 % Normal 4.0-13.0 [facility] Comment on above: Order Comment: Items in this order include: Comprehensive Metabolic Panel, Lipid Panel, Vit D 25 [place] (Total), CBC with differential, , Testing Performed By: [facility] [address] [place] [address]. [place] [address] Dr. Kathy Jhaveri, Chipper Performed By: #### C 215, [id number], C47, C8 #### [facility] [address] [place] [address] [place] [address] TOMI # 5.0 K CUMM Normal 1.8-7.8 [facility] Comment on above: Order Comment: Items in this order include: Comprehensive Metabolic Panel, Lipid Panel, Vit D 25 [place] (Total), CBC with differential, , Testing Performed By: [facility] [address] [address] [place], [place] [id number] Dr. Kathy Jhaveri, Chipper Performed By: #### C 215, C3763, C47, C8 #### [facility] [address] [facility] [address] [place] [address] Neutrophils/100 WBC (Bld) 64.8 % Normal 40.0-74.0 [facility] Comment on above: Order Comment: Items in this order include: Comprehensive Metabolic Panel, Lipid Panel, Vit D 25 [place] (Total), CBC with differential, , Testing Performed By: [facility] [address] [place] [address]. [place] [address] Dr. Kathy Jhaveri, Chipper Performed By: #### C 215, C3763, C47, C8 #### [facility] [address] [place] [address] [address] [place] [address] Platelet mean volume (Bld) [Entitic vol] 12.4 fL Normal 8.9-12.6 [facility] Comment on above: Order Comment: Items in this order include: Comprehensive Metabolic Panel, Lipid Panel, Vit D 25 [place] (Total), CBC with differential, , Testing Performed By: [facility] [address] [place] [address]. [place] [address] Dr. Kathy Jhaveri, Chipper Performed By: #### C 215, C3763, C47, C8 #### [facility] [address] [place] [address] [address] [place] [address] PLT 292 K CUMM Normal 130-400 [facility] Comment on above: Order Comment: Items in this order include: Comprehensive Metabolic Panel, Lipid Panel, Vit D 25 [place] (Total), CBC with differential, , Testing Performed By: [facility] [address] [place] [address]. [place] [address] Dr. Kathy Jhaveri, Chipper Performed By: #### C 215, C3763, C47, C8 #### [facility] [address] [facility] [address] [place] [address] RBC 4.30 M CUMM Normal 3.80-5.10 [facility] Comment on above: Order Comment: Items in this order include: Comprehensive Metabolic Panel, Lipid Panel, Vit D 25 [place] (Total), CBC with differential, , Testing Performed By: [facility] [address] [place] [address] Dr. Kathy Jhaveri, Chipper Performed By: #### C 215, C3763, C47, C8 #### [facility] [address] [place] [address] [address] [place] [address] WBC 7.8 K CUMM Normal 3.8-10.6 [facility] Comment on above: Order Comment: Items in this order include: Comprehensive Metabolic Panel, Lipid Panel, Vit D 25 [place] (Total), CBC with differential, , Testing Performed By: [facility] [address] [place] [address] Dr. Kathy Jhaveri, Chipper Performed By: #### C 215, C3763, C47, C8 #### [facility], [facility]. [address] [place] [address] [address] [place] [address] Comprehensive Metabolic Pane josé manuel 10-25-2020 Albumin [Mass/Vol] 4.9 g/dL Normal 3.5-5.0 [facility] Comment on above: Order Comment: Items in this order include: Comprehensive Metabolic Panel, Lipid Panel, Vit D 25 [place] (Total), CBC with differential, , Testing Performed By: [facility] [address] [place] [address] [address] [address] Kathy Jhaveri, Chipper Performed By: #### C 215, C3763, C47, C8 #### [facility], [facility]. [address] [place] [address] [address] [place] [address] Alk Phos 79 U/L Normal 23-159 [facility] Comment on above: Order Comment: Items in this order include: Comprehensive Metabolic Panel, Lipid Panel, Vit D 25 [place] (Total), CBC with differential, , Testing Performed By: [facility] [address] [place] [address] [address] Kathy Jhaveri, Chipper Performed By: #### C 215, C3763, C47, C8 #### [facility] [address] [facility] [address] [place] [address] ALT [Catalytic activity/Vol] 18 U/L Normal 0-38 [facility] Comment on above: Order Comment: Items in this order include: Comprehensive Metabolic Panel, Lipid Panel, Vit D 25 [place] (Total), CBC with differential, , Testing Performed By: [facility] [address] [place] [address] [address] Kathy Jhaveri, Chipper Performed By: #### C 215, C3763, C47, C8 #### [facility] [address] [place] [address] [address] [place] [address] AST [Catalytic activity/Vol] 27 U/L Normal 11-43 [facility] Comment on above: Order Comment: Items in this order include: Comprehensive Metabolic Panel, Lipid Panel, Vit D 25 [place] (Total), CBC with differential, , Testing Performed By: [facility] [address] [place] [address] [address] Kathy Jhaveri, Chipper Performed By: #### C 215, C3763, C47, C8 #### [facility] [address] [place] [address] [address] [place] [address] Bilirubin [Mass/Vol] 0.9 mg/dL Normal 0.2-1.3 [facility] Comment on above: Order Comment: Items in this order include: Comprehensive Metabolic Panel, Lipid Panel, Vit D 25 [place] (Total), CBC with differential, , Testing Performed By: [facility] [address] [place] [address] Kathy Jhaveri, Chipper Performed By: #### C 215, C3763, C47, C8 #### [facility] [address] [place] [address] [address] [place] [address] Calcium [Mass/Vol] 9.9 mg/dL Normal 8.5-10.5 [facility] Comment on above: Order Comment: Items in this order include: Comprehensive Metabolic Panel, Lipid Panel, Vit D 25 [place] (Total), CBC with differential, , Testing Performed By: [facility] [address] [place] [address]. [place] [address] Dr. Kathy Jhaveri, Chipper Performed By: #### C 215, C3763, C47, C8 #### [facility] [address] [place] [address] Rd [address] [place] [address] Chloride [Moles/Vol] 100 mmol/L Normal 98-107 [facility] Comment on above: Order Comment: Items in this order include: Comprehensive Metabolic Panel, Lipid Panel, Vit D 25 [place] (Total), CBC with differential, , Testing Performed By: [facility] [address] [place] [address]. [place] [address] Dr. Kathy Jhaveri, Chipper Performed By: #### C 215, C3763, C47, C8 #### [facility] [address] [place] [address] [place] [address] CO2 [Moles/Vol] 27.0 mmol/L Normal 21.0-32.0 [facility] Comment on above: Order Comment: Items in this order include: Comprehensive Metabolic Panel, Lipid Panel, Vit D 25 [place] (Total), CBC with differential, , Testing Performed By: [facility] [address] [place] [address]. [place] [address] Dr. Kathy Jhaveri, Chipper Performed By: #### C 215, C3763, C47, C8 #### [facility] [address] [place] [address] [address] [place] [address] Creatinine [Mass/Vol] 0.7 mg/dL Normal 0.1-1.2 [facility] Comment on above: Order Comment: Items in this order include: Comprehensive Metabolic Panel, Lipid Panel, Vit D 25 [place] (Total), CBC with differential, , Testing Performed By: [facility] [address] [place] [address]. [place] [address] Dr. Kathy Jhaveri, Chipper Performed By: #### C 215, C3763, C47, C8 #### [facility] [address] [place] [address] [address] [place] [address] GFR 96 mL/min per 1.73 Normal >60 [facility] Comment on above: Order Comment: Items in this order include: Comprehensive Metabolic Panel, Lipid Panel, Vit D 25 [place] (Total), CBC with differential, , Testing Performed By: [facility] [address] [place] [address] Kathy Jhaveri, Chipper Result Comment: The GFR estimate is not adjusted for race. If the patient's race is -[place]cu[place], the GFR estimate must be multiplied by a factor of 1.21. Performed By: #### C 215, C3763, C47, C8 #### [facility], [facility]. [address] [place] [address] [address] [place] [id number] Glucose [Mass/Vol] 83 mg/dL Normal 74-100 [facility] Comment on above: Order Comment: Items in this order include: Comprehensive Metabolic Panel, Lipid Panel, Vit D 25 [place] (Total), CBC with differential, , Testing Performed By: [facility] [address] [place] [address] Dr. Kathy Jhaveri, Chipper Performed By: #### C 215, C3763, C47, C8 #### [facility], [facility]. [address] [place] [address] [place] [address] Potassium [Moles/Vol] 4.4 mmol/L Normal 3.5-5.3 [facility] Comment on above: Order Comment: Items in this order include: Comprehensive Metabolic Panel, Lipid Panel, Vit D 25 [place] (Total), CBC with differential, , Testing Performed By: [facility] [address] [place] [address] [address] Kathy Jhaveri, Chipper Performed By: #### C 215, C3763, C47, C8 #### [facility], [facility]. [address] [place] [address] [place] [address] Protein [Mass/Vol] 7.5 g/dL Normal 6.3-8.4 [facility] Comment on above: Order Comment: Items in this order include: Comprehensive Metabolic Panel, Lipid Panel, Vit D 25 [place] (Total), CBC with differential, , Testing Performed By: [facility] [address] [place] [address]. [place] [address] Dr. Kathy Jhaveri, Chipper Performed By: #### C 215, C3763, C47, C8 #### [facility] [address] [place] [address] [place] [address] Sodium [Moles/Vol] 138 mmol/L Normal 135-145 [facility] Comment on above: Order Comment: Items in this order include: Comprehensive Metabolic Panel, Lipid Panel, Vit D 25 [place] (Total), CBC with differential, , Testing Performed By: [facility] [address] [place] [address]. [place] [address] Dr. Kathy Jhaveri, Chipper Performed By: #### C 215, C3763, C47, C8 #### [facility] [address] [place] [address] [address] [place] [address] Urea nitrogen [Mass/Vol] 11 mg/dL Normal 6-22 [facility] Comment on above: Order Comment: Items in this order include: Comprehensive Metabolic Panel, Lipid Panel, Vit D 25 [place] (Total), CBC with differential, , Testing Performed By: [facility] [address] [place] [address]. [place] [address] Dr. Kathy Jhaveri, Chipper Performed By: #### C 215, C3763, C47, C8 #### [facility] [address] [place] [address] [place] [address] Lipid Panelon 10-25-2020 Cholesterol [Mass/Vol] 242 mg/dL High <200 [facility] Comment on above: Performed By: #### C 215, C3763, C47, C8 #### [facility] [address] [place] [address] [place] [address] Cholesterol in HDL [Mass/Vol] 68 mg/dL Normal >50 [facility] Comment on above: Performed By: #### C 215, C3763, C47, C8 #### [facility] [address] [place] [address] [address] [place] [address] Cholesterol in LDL [Mass/Vol] 160 mg/dL High <130 [facility] Comment on above: Performed By: #### C 215, C3763, C47, C8 #### [facility] [address] [place] [address] [address] [place] [address] Cholesterol.total/Chol esterol in HDL [Mass ratio] 3.6 {ratio} Normal <4.0 [facility] Comment on above: Performed By: #### C 215, C3763, C47, C8 #### [facility] [address] [place] [address] [address] [place] [address] Non-HDL Chol 174 Normal LDL Goal + 30 [facility] Comment on above: Result Comment: LDL and Non-HDL goal dependent upon individual risk Performed By: #### C 215, C3763, C47, C8 #### [facility] [address] [place] [address] [address] [place] [address] Triglyceride [Mass/Vol] 69 mg/dL Normal <150 [facility] Comment on above: Performed By: #### C 215, C3763, C47, C8 #### [facility] [address] [place] [address] [address] [place] [address] VLDL-Calc 14 mg/dl Normal <30 [facility] Comment on above: Performed By: #### C 215, C3763, C47, C8 #### [facility] [address] [place] [address] [place] [address] Vit D 25 [place] (Total)on 2020 Vit D 25 [place] (Total) 32.7 ng/ml Normal 31.0-100.0 [facility] Comment on above: Order Comment: Items in this order include: Comprehensive Metabolic Panel, Lipid Panel, Vit D 25 [place] (Total), CBC with differential, , Testing Performed By: [facility] [address] [place] [address]. [place] [address] Dr. Kathy Jhaveri, Chipper Result Comment: Defi ciency <10 ng/ml Insufficiency 10-30 ng/ml Sufficiency 31-100 ng/ml Toxicity >100 ng/ml Performed By: #### C 215, C3763, C47, C8 #### [facility] [address] [facility] [address] [place] [address] Patient Summaryon 01-10-2020 Patient Summary PATIENT DISCHARGE INSTRUCTIONS If you are having an emergency and are not able to reach your physician, CALL 911 or go to the nearest emergency room and take this document with you. [facility] 01/10/20 11:23 [address] [place]. [address] PATIENT INFORMATION Name: SHAYNEBRIGID Address: [address] [place] [id number] Age: 34 Years Phone: [phone] : 1985 12:00 MRN: [id number] Sex: Female Race: White Ethnicity: Not Hispan/Lat Admitted From: Clinic or [facility] Medical Service: Obstetric Nurse Unit/Bed: ([place] [facility] 5V92-40 Admit Date: 01/08/2020 13:46 PCP: Physician, PCP Unknown PHYSICIANS INVOLVED WITH CARE ---- Attending Physicians: Ibeth Gómez MD, Shantel Tafoya [...] oz ( 01/08/20 12:59:00 ) MEDICATIONS For: BRIGID BELLA This is your list of medication(s). Keep it with you at all times. Your doctor may have changed doses, add, held or stopped some of your medications. Please share this information with your family doctor. Carry this list of medications with you in case of an emergency. Update it when medications are stopped, doses are changed, or new medications (including caiq-bmf-fvrdotw products) are added. Ask your doctor if [...] as needed for pain. Refills: 0. Comment ____ UPDATED MEDICATIONS None UNCHANGED MEDICATIONS Other Medications multivitamin, ( Multivitamin) 1 Tab(s) By Mouth once a day. Comment ____ STOP TAKING THESE MEDICATIONS None DO NOT TAKE UNTIL YOU TALK TO YOUR DOCTOR None NON-MEDICATION PRESCRIPTION SCHEDULING PHONE NUMBER: EDUCATION MATERIALS GIVEN: Title-Video/Print Material: YEISON lundberg teaching SELECTED LAB RESULTS ____ Lab Result Order Date Hemoglobin 11.9 gm/dL [...] suicide hotline, anytime day or night, at 3-681-917-VJFE. It's easy to sign up for [employer]: 1. Visit [email or web address] [employer] 2. Click on [place] for [employer] 3. Verify your identity by entering your [...] your account, you'll be redirected to the [employer] login page. Login and check to see your results Questions? For help with account enrollment, call [employer] Customer Support at [phone] (toll-free) PATIENT EDUCATION Discharge Instructions for Mother [...] cracked, blistered or bleeding, call outpatient at [phone] ([phone]) for help. 5. Care of Perineum following [...] bloody. Call 911 for any emergency! 2. Infant Feeding: ?? Feed your baby only breastmilk the first 6 months. ?? Do not give your baby water, juice, cow's milk or solid foods until instructed to do so by your baby's doctor. ?? Complimentary or solid foods are introduced at 6 months of age, but breastmilk is continued until 12 months or longer. ?? Call [phone] ([phone] if any questions or concerns with ?? [...] ?? Always use a car seat when infant is in a motor vehicle. ?? Always [...] ?? Do not have anything in the infant's crib: NO pillows, blankets, quilts, comforters, toys, [...] delivery ? Depression ?Jaundice ?Domestic Violence Resources ?[facility] Rough And Ready Screening ?[facility] Hearing Development information ?[facility] Safe Sleep Environment Screening ?[facility] Rough And Ready Hearing Screening Brochure ??A Sound Beginning??. ?Shaken [...] information, talk with your doctor or call [phone] ( ). I have received a copy of all discharge instructions and understand how to take care of myself and my baby after discharge. __ Patient Signature Nurse Signature Date Time Vaginal [...] you go home. HOME CARE INSTRUCTIONS ???Take gfev-vvs-vyqslvq or prescription medicines only as directed by [...] Reviewed: 12/15/2012 Elsevier Interactive Patient Education ?2016 [employer] PATIENT DISCHARGE INSTRUCTION Signature Page for: BRIGID BELLA Date/Time: 01/10/2020 11:23:37 A Clinician has explained the information on my discharge instructions and has provided me with a copy. My questions have been answered to my satisfaction. Patient Signature Date/Time Responsible Party Date/Time Relationship to Patient Clinician Signature Date/Time Normal [facility] Syphilis Screenon 01-09-2020 T. pallidum Ab IA Ql (S) NONREAC Normal NONREAC [facility] Comment on above: Result Comment: No s erologic evidence of syphilis. Performed By: #### 3 9231-6 #### [facility] [address] [place] [address] Antibody Screen Interpretati on (T+S Compon 01-08-2020 Interpretation and review of laboratory results Negative Normal NEGATIVE-NEG ATIVE [facility] Comment on above: Performed By: #### 8 90-4, 882-1x1 #### [facility], [address] [place], [place]. Blood Typing ABO + Rh(D)on 0 01-08-2020 ABO and Rh group Nom (Bld) ABPOS Normal [facility] Comment on above: Performed By: #### 8 90-4, 882-1x1 #### [facility], [address], [place]. CBCon 01-08-2020 Erythrocyte distribution width (RBC) [Entitic vol] 12.6 % Normal 11.0-14.8 [facility] Comment on above: Performed By: #### 2 4317-0 #### [facility], [address] [place] [place] [address]. Hematocrit (Bld) [Volume fraction] 35.4 % Normal 35.0-45.0 [facility] Comment on above: Performed By: #### 2 4317-0 #### [facility], [address] [place] [address]. Hemoglobin (Bld) [Mass/Vol] 11.9 g/dL Low 12.0-16.0 [facility] Comment on above: Performed By: #### 2 4317-0 #### [facility], [facility] [place], [place]. MCH (RBC) [Entitic mass] 30.6 Picograms Normal 27.0-34.0 [facility] Comment on above: Performed By: #### 2 4317-0 #### [facility], [address] [place], [place]. MCHC (RBC) [Mass/Vol] 33.7 g/dL Normal 32.0-36.0 [facility] Comment on above: Performed By: #### 2 4317-0 #### [facility], [address] [place] [address], [place]. MCV (RBC) [Entitic vol] 91.0 fL Normal 80.0-97.0 [facility] Comment on above: Performed By: #### 2 4317-0 #### [facility], [address], [place]. Platelet mean volume (Bld) [Entitic vol] 12.1 fL Normal 6.2-12.1 [facility] Comment on above: Performed By: #### 2 4317-0 #### [facility], [address] [place], [place]. Platelets (Bld) [#/Vol] 186 thou/mcL Normal 142-424 [facility] Comment on above: Performed By: #### 2 4317-0 #### [facility], [address] [place] [address]. RBC (Bld) [#/Vol] 3.89 million/mcL Normal 3.80-5.10 [facility] Comment on above: Performed By: #### 2 4317-0 #### [facility], [address] [place], [place]. WBC (Bld) [#/Vol] 15.3 thou/mcL High 4.6-10.2 [facility] Comment on above: Performed By: #### 2 4317-0 #### [facility], [address] [place] [address]. Hold Clot (Blood Bank)on Other useful information NOTNEED Normal [facility] Comment on above: Performed By: #### 1 1111-6 #### [facility], [address] [place] [address]. Culture, urine Bacteria identified Cx Nom (U) Positive [facility] Work Phone: Vital Signs Date Time Vital Sign Value Performing Clinician Chuy irizarry 11-11-2024 15:41-0400 Body height 165.[address] Yousuf Ortiz MD Work Phone: [facility] 11-11-2024 15:41-0400 Body mass index (BMI) [Ratio] 27.4 kg/m2 Dr. Yousuf Ortiz MD Work Phone: [facility] 11-11-2024 15:41-0400 Body weight 74.[address] Yousuf Ortiz MD Work Phone: [facility] 11-11-2024 15:41-0400 Diastolic blood pressure 78 mm[Hg] Dr. Yousuf Ortiz MD Work Phone: [facility] 11-11-2024 15:41-0400 Systolic blood pressure 120 mm[Hg] Dr. Yousuf Ortiz MD Work Phone: [facility] 10-28-2024 13:55-0400 Body height 165.[address] Yousuf Ortiz MD Work Phone: [facility] 10-28-2024 13:55-0400 Body mass index (BMI) [Ratio] 27.4 kg/m2 Dr. Yousuf Ortiz MD Work Phone: [facility] 10-28-2024 13:55-0400 Body weight 74.[address] Yousuf Ortiz MD Work Phone: [facility] 10-28-2024 13:55-0400 Diastolic blood pressure 69 mm[Hg] Dr. Yousuf Ortiz MD Work Phone: [facility] 10-28-2024 13:55-0400 Systolic blood pressure 111 mm[Hg] Dr. Yousuf Ortiz MD Work Phone: [facility] 10-12-2024 08:52-0400 Body height 165.[address] Yousuf Ortiz MD Work Phone: [facility] 10-12-2024 08:52-0400 Body mass index (BMI) [Ratio] 27.1 kg/m2 Dr. Yousuf Ortiz MD Work Phone: [facility] 10-12-2024 08:52-0400 Body weight 74.[address] Yousuf Ortiz MD Work Phone: [facility] 10-12-2024 08:52-0400 Diastolic blood pressure 62 mm[Hg] Dr. Yousuf Ortiz MD Work Phone: [facility] 10-12-2024 08:52-0400 Systolic blood pressure 103 mm[Hg] Dr. Yousuf Ortiz MD Work Phone: [facility] 09-29-2024 15:15-0400 Body height 165.[address] Yousuf Ortiz MD Work Phone: [facility] 09-29-2024 15:15-0400 Body mass index (BMI) [Ratio] 27.3 kg/m2 Dr. Yousuf Ortiz MD Work Phone: [facility] 09-29-2024 15:15-0400 Body weight 74.[address] Yousuf Ortiz MD Work Phone: [facility] 09-29-2024 15:15-0400 Diastolic blood pressure 74 mm[Hg] Dr. Yousuf Ortiz MD Work Phone: [facility] 09-29-2024 15:15-0400 Systolic blood pressure 107 mm[Hg] Dr. Yousuf Ortiz MD Work Phone: [facility] 08-31-2024 09:09-0400 Body mass index (BMI) [Ratio] 26 kg/m2 Dr. Yousuf Ortiz MD Work Phone: [facility] 08-31-2024 09:09-0400 Body weight 70.[address] Yousuf Ortiz MD Work Phone: [facility] 08-31-2024 09:09-0400 Diastolic blood pressure 71 mm[Hg] Dr. Yousuf Ortiz MD Work Phone: [facility] 08-31-2024 09:09-0400 Systolic blood pressure 107 mm[Hg] Dr. Yousuf Ortiz MD Work Phone: [facility] 08-03-2024 08:30-0400 Body mass index (BMI) [Ratio] 25.2 kg/m2 Dr. Yousuf Ortiz MD Work Phone: [facility] 08-03-2024 08:30-0400 Body weight 68.[address] Yousuf Ortiz MD Work Phone: [facility] 08-03-2024 08:30-0400 Diastolic blood pressure 64 mm[Hg] Dr. Yousuf Ortiz MD Work Phone: [facility] 08-03-2024 08:30-0400 Systolic blood pressure 102 mm[Hg] Dr. Yousuf Ortiz MD Work Phone: [facility] 07-05-2024 15:40-0500 Body mass index (BMI) [Ratio] 24.3 kg/m2 Dr. Yousuf Ortiz MD Work Phone: [facility] 07-05-2024 15:40-0500 Body weight 66.[address] Yousuf Ortiz MD Work Phone: [facility] 07-05-2024 15:40-0500 Diastolic blood pressure 68 mm[Hg] Dr. Yousuf Ortiz MD Work Phone: [facility] 07-05-2024 15:40-0500 Systolic blood pressure 101 mm[Hg] Dr. Yousuf Ortiz MD Work Phone: [facility] 06-03-2024 11:26-0500 Body mass index (BMI) [Ratio] 23.6 kg/m2 Dr. Yousuf Ortiz MD Work Phone: [facility] 06-03-2024 11:26-0500 Body weight 64.[address] Yousuf Ortiz MD Work Phone: [facility] 06-03-2024 11:26-0500 Diastolic blood pressure 76 mm[Hg] Dr. Yousuf Ortiz MD Work Phone: [facility] 06-03-2024 11:26-0500 Systolic blood pressure 113 mm[Hg] Dr. Yousuf Ortiz MD Work Phone: [facility] 08-23-2023 09:58-0400 Body temperature 97.2 [degF] Tita Houser CHANGE COORDINATOR.DROP WIRE OPERATOR Work Phone: [facility] 08-23-2023 09:58-0400 Body weight 61 kg Tita Houser CHANGE COORDINATOR.DROP WIRE OPERATOR Work Phone: [facility] 08-23-2023 09:58-0400 Diastolic blood pressure 65 mm[Hg] Tita Houser CHANGE COORDINATOR.DROP WIRE OPERATOR Work Phone: [facility] 08-23-2023 09:58-0400 Heart rate 64 /min Tita Houser CHANGE COORDINATOR.DROP WIRE OPERATOR Work Phone: [facility] 08-23-2023 09:58-0400 Respiratory rate 18 /min Tita Houser CHANGE COORDINATOR.DROP WIRE OPERATOR Work Phone: [facility] 08-23-2023 09:58-0400 SaO2% (BldA) [Mass fraction] 100 % Tita Houser CHANGE COORDINATOR.DROP WIRE OPERATOR Work Phone: [facility] 08-23-2023 09:58-0400 Systolic blood pressure 100 mm[Hg] Tita Houser CHANGE COORDINATOR.DROP WIRE OPERATOR Work Phone: [facility] 12-26-2022 08:34-0400 Body height 162.6 cm Jairo Romero MD Work Phone: [facility] 12-26-2022 08:34-0400 Body weight 62.14 kg Jairo Romero MD Work Phone: [facility] 12-26-2022 08:34-0400 Diastolic blood pressure 60 mm[Hg] Jairo Romero MD Work Phone: [facility] 12-26-2022 08:34-0400 Heart rate 58 /min Jairo Romero MD Work Phone: [facility] 12-26-2022 08:34-0400 Respiratory rate 16 /min Jairo Romero MD Work Phone: [facility] 12-26-2022 08:34-0400 SaO2% (BldA) [Mass fraction] 99 % Jairo Romero MD Work Phone: [facility] 12-26-2022 08:34-0400 Systolic blood pressure 90 mm[Hg] Jairo Romero MD Work Phone: [facility] 06-18-2022 09:20-0500 Body temperature 98.3 [degF] No Primary Care Physician [facility] 06-18-2022 09:20-0500 Diastolic blood pressure 57 mm[Hg] No Primary Care Physician [facility] 06-18-2022 09:20-0500 Heart rate 68 /min No Primary Care Physician [facility] 06-18-2022 09:20-0500 Respiratory rate 16 /min No Primary Care Physician [facility] 06-18-2022 09:20-0500 Systolic blood pressure 100 mm[Hg] No Primary Care Physician [facility] 06-17-2022 00:39-0500 Body height 165.1 cm No Primary Care Physician [facility] 06-17-2022 00:39-0500 Body mass index (BMI) [Ratio] 28.6 kg/m2 No Primary Care Physician [facility] 06-17-2022 00:39-0500 Body weight 78.1 kg No Primary Care Physician [facility] 06-13-2022 09:08-0500 Body mass index (BMI) [Ratio] 28.6 kg/m2 No Primary Care Physician [facility] 06-13-2022 09:08-0500 Body weight 78.13 kg No Primary Care Physician [facility] 06-13-2022 09:08-0500 Diastolic blood pressure 73 mm[Hg] No Primary Care Physician [facility] 06-13-2022 09:08-0500 Systolic blood pressure 109 mm[Hg] No Primary Care Physician [facility] 06-06-2022 13:12-0500 Body mass index (BMI) [Ratio] 28.4 kg/m2 No Primary Care Physician [facility] 06-06-2022 13:12-0500 Body weight 77.56 kg No Primary Care Physician [facility] 06-06-2022 13:12-0500 Diastolic blood pressure 80 mm[Hg] No Primary Care Physician [facility] 06-06-2022 13:12-0500 Systolic blood pressure 104 mm[Hg] No Primary Care Physician [facility] 05-30-2022 11:42-0500 Body mass index (BMI) [Ratio] 28.5 kg/m2 No Primary Care Physician [facility] 05-30-2022 11:42-0500 Body weight 77.62 kg No Primary Care Physician [facility] 05-30-2022 11:42-0500 Diastolic blood pressure 64 mm[Hg] No Primary Care Physician [facility] 05-30-2022 11:42-0500 Systolic blood pressure 112 mm[Hg] No Primary Care Physician [facility] 05-23-2022 09:57-0500 Body mass index (BMI) [Ratio] 28.1 kg/m2 No Primary Care Physician [facility] 05-23-2022 09:57-0500 Body weight 76.77 kg No Primary Care Physician [facility] 05-23-2022 09:57-0500 Diastolic blood pressure 74 mm[Hg] No Primary Care Physician [facility] 05-23-2022 09:57-0500 Systolic blood pressure 126 mm[Hg] No Primary Care Physician [facility] 05-09-2022 11:47-0500 Body mass index (BMI) [Ratio] 28 kg/m2 No Primary Care Physician [facility] 05-09-2022 11:47-0500 Body weight 76.37 kg No Primary Care Physician [facility] 05-09-2022 11:47-0500 Diastolic blood pressure 71 mm[Hg] No Primary Care Physician [facility] 05-09-2022 11:47-0500 Systolic blood pressure 103 mm[Hg] No Primary Care Physician [facility] 04-24-2022 12:38-0500 Body mass index (BMI) [Ratio] 27.1 kg/m2 No Primary Care Physician [facility] 04-24-2022 12:38-0500 Body weight 74.16 kg No Primary Care Physician [facility] 04-24-2022 12:38-0500 Diastolic blood pressure 74 mm[Hg] No Primary Care Physician [facility] 04-24-2022 12:38-0500 Systolic blood pressure 113 mm[Hg] No Primary Care Physician [facility] 04-07-2022 15:25-0500 Body mass index (BMI) [Ratio] 26.8 kg/m2 No Primary Care Physician [facility] 04-07-2022 15:25-0500 Body weight 73.19 kg No Primary Care Physician [facility] 04-07-2022 15:25-0500 Diastolic blood pressure 64 mm[Hg] No Primary Care Physician [facility] 04-07-2022 15:25-0500 Systolic blood pressure 98 mm[Hg] No Primary Care Physician [facility] 03-21-2022 11:55-0500 Body mass index (BMI) [Ratio] 26.4 kg/m2 No Primary Care Physician [facility] 03-21-2022 11:55-0500 Body weight 71.89 kg No Primary Care Physician [facility] 03-21-2022 11:55-0500 Diastolic blood pressure 56 mm[Hg] No Primary Care Physician [facility] 03-21-2022 11:55-0500 Systolic blood pressure 94 mm[Hg] No Primary Care Physician [facility] 02-21-2022 11:24-0400 Body mass index (BMI) [Ratio] 25 kg/m2 No Primary Care Physician [facility] 02-21-2022 11:24-0400 Body weight 68.2 kg No Primary Care Physician [facility] 02-21-2022 11:24-0400 Diastolic blood pressure 72 mm[Hg] No Primary Care Physician [facility] 02-21-2022 11:24-0400 Systolic blood pressure 109 mm[Hg] No Primary Care Physician [facility] 01-24-2022 11:30-0400 Body height 165.1 cm No Primary Care Physician [facility] Work Phone: 01-24-2022 11:28-0400 Body mass index (BMI) [Ratio] 24.3 kg/m2 No Primary Care Physician [facility] Work Phone: 01-24-2022 11:28-0400 Body weight 66.22 kg No Primary Care Physician [facility] Work Phone: 01-24-2022 11:28-0400 Diastolic blood pressure 74 mm[Hg] No Primary Care Physician [facility] Work Phone: 01-24-2022 11:28-0400 Systolic blood pressure 117 mm[Hg] No Primary Care Physician [facility] Work Phone: 12-24-2021 11:49-0400 Body temperature 99 [degF] Tita Houser CHANGE COORDINATOR.DROP WIRE OPERATOR Work Phone: [facility] 12-24-2021 11:49-0400 Body weight 61.24 kg Tita Houser CHANGE COORDINATOR.DROP WIRE OPERATOR Work Phone: [facility] 12-24-2021 11:49-0400 Diastolic blood pressure 64 mm[Hg] Tita Houser CHANGE COORDINATOR.DROP WIRE OPERATOR Work Phone: [facility] 12-24-2021 11:49-0400 Heart rate 84 /min Tita Houser CHANGE COORDINATOR.DROP WIRE OPERATOR Work Phone: [facility] 12-24-2021 11:49-0400 Respiratory rate 16 /min Tita Houser CHANGE COORDINATOR.DROP WIRE OPERATOR Work Phone: [facility] 12-24-2021 11:49-0400 SaO2% (BldA) [Mass fraction] 99 % Tita Houser CHANGE COORDINATOR.DROP WIRE OPERATOR Work Phone: [facility] 12-24-2021 11:49-0400 Systolic blood pressure 110 mm[Hg] Tita Houser CHANGE COORDINATOR.DROP WIRE OPERATOR Work Phone: [facility] 12-20-2021 11:52-0400 Body mass index (BMI) [Ratio] 22.5 kg/m2 No Primary Care Physician [facility] Work Phone: 12-20-2021 11:52-0400 Body weight 61.46 kg No Primary Care Physician [facility] Work Phone: 12-20-2021 11:52-0400 Diastolic blood pressure 62 mm[Hg] No Primary Care Physician [facility] Work Phone: 12-20-2021 11:52-0400 Systolic blood pressure 100 mm[Hg] No Primary Care Physician [facility] Work Phone: 11-21-2021 15:03-0400 Body height 165.[address] Sheyla Small Work Phone: [facility] Work Phone: 11-21-2021 15:03-0400 Body mass index (BMI) [Ratio] 22 kg/m2 Dr. Sheyla Small Work Phone: [facility] Work Phone: 11-21-2021 15:03-0400 Body weight 59.[address] Sheyla Small Work Phone: [facility] Work Phone: 11-21-2021 15:03-0400 Diastolic blood pressure 60 mm[Hg] Dr. Sheyla Small Work Phone: [facility] Work Phone: 11-21-2021 15:03-0400 Systolic blood pressure 100 mm[Hg] Dr. Sheyla Small Work Phone: [facility] Work Phone: Encounters Encounter Date Encounter Type Care Provider Facility Start: 11-11-2024 End: 11-11-2024 Patient encounter procedure Radha Valverde CNM -[facility] Work Phone: Start: 11-11-2024 End: 11-11-2024 ambulatory Yousuf Ortiz Facility:[facility] Start: 11-02-2024 End: 11-02-[address] Yousuf Ortiz MD Work Phone: [facility] Start: 11-02-2024 End: 11-02-[address] Sheyla Small DO -[facility] Work Phone: Start: 11-02-2024 End: 11-02-2024 ambulatory Yousuf Ortiz Facility:[facility] Start: 10-28-2024 End: 10-28-[address] Sheyla Small DO -[facility] Work Phone: Start: 10-28-2024 End: 10-28-[address] Yousuf Ortiz MD Work Phone: -[facility] Start: 10-12-2024 End: 10-12-[address] Sheyla Small DO -[facility] Work Phone: Start: 10-12-2024 End: 10-12-[address] Yousuf Ortiz MD Work Phone: [facility] Work Phone: Start: 09-29-2024 End: 09-29-2024 Patient encounter procedure Radha Valverde CNM -[facility] Work Phone: Start: 09-29-2024 End: 09-29-[address] Yousuf Ortiz MD Work Phone: [facility] Work Phone: Start: 08-31-2024 End: 08-31-[address] Linda Mcconnell MD -[facility] Work Phone: Start: 08-31-2024 End: 08-31-2024 ambulatory Yousuf Ortzi Facility:[facility] Start: 08-31-2024 End: 08-31-2024 ambulatory Yousuf Ortiz Facility:[facility] Start: 08-03-2024 End: 08-03-2024 Patient encounter procedure Micaela OLMSTEAD -[facility] Work Phone: Start: 08-03-2024 End: 08-03-2024 ambulatory Yousuf [place] Facility:[facility] Start: 07-28-2024 End: 07-28-2024 ambulatory KOBE Fannie TORRESCABAN [facility] Start: 07-05-2024 End: 07-05-[address] Sheyla Small DO -[facility] Work Phone: Start: 07-05-2024 End: 07-05-2024 ambulatory Yousuf Angel Facility:[facility] Start: 06-03-2024 End: 06-03-2024 Patient encounter procedure Trishmiguel Murray CN -Laboratory Work Phone: Start: 06-03-2024 End: 06-03-2024 Patient encounter procedure Trish Murray CN -[facility] Work Phone: Start: 06-03-2024 End: 06-03-2024 ambulatory Yousuf [place] Facility:[facility] Start: 06-03-2024 End: 06-03-2024 ambulatory Yousuf [place] Facility:[facility] Start: 03-09-2024 End: 03-09-2024 ambulatory Yousuf [place] Facility:[facility] Start: 02-24-2024 End: 02-24-2024 ambulatory No Primary Care Physician Facility:[facility] Start: 02-24-2024 End: 02-24-2024 ambulatory Yousuf [place] Facility:[facility] Start: 08-23-2023 End: 08-23-2023 ambulatory JAIRO ROMERO Facility:[facility] Start: 08-23-2023 End: 08-23-2023 Patient encounter procedure Tita Houser APRN.CNP Work Phone: [facility] Comment on above: Conjunctivitis of ri ght eye, unspecified conjunctivitis type (Primary Dx); URI, acute Start: 06-29-2023 Telephone encounter Faraz Romero MD Work Phone: [facility] [place] Comment on above: Results Start: 06-19-2023 End: 06-20-2023 ambulatory JAIRO ROMERO Facility:[facility] Start: 06-19-2023 Patient encounter procedure JAIRO ROMERO [facility] Start: 03-20-2023 End: 03-21-2023 ambulatory JAIRO ROMERO Facility:[facility] Start: 03-13-2023 End: 03-14-2023 ambulatory JAIRO ROMERO Facility:[facility] Start: 12-26-2022 End: 12-26-2022 ambulatory JAIRO ROMERO Facility:[facility] Start: 12-26-2022 End: 12-26-2022 Patient encounter procedure Jairo Romero MD Work Phone: [facility] [place] Comment on above: Melasma (Primary Dx) ; Encounter to establish care; Depression screening Start: 06-18-2022 Non-patient / Non-visit No Azra morrison Care Physician [facility] Start: 06-17-2022 Non-patient / Non-visit No Azra morrison Care Physician [facility] Start: 06-17-2022 End: 06-18-2022 Evaluation and management of inpatient No Primary Care Physician [facility] Start: 06-13-2022 End: 06-13-2022 Patient encounter procedure No Primary Care Physician [facility] Start: 06-06-2022 End: 06-06-2022 Patient encounter procedure No Primary Care Physician [facility] Start: 05-30-2022 End: 05-30-2022 Patient encounter procedure No Primary Care Physician [facility] Start: 05-23-2022 End: 05-23-2022 Patient encounter procedure No Primary Care Physician [facility] Start: 05-23-2022 End: 05-23-2022 Patient encounter procedure No Primary Care Physician [facility] Start: 05-09-2022 End: 05-09-2022 Patient encounter procedure No Primary Care Physician [facility] Start: 04-24-2022 End: 04-24-2022 Patient encounter procedure No Primary Care Physician [facility] Start: 04-07-2022 End: 04-07-2022 Patient encounter procedure No Primary Care Physician [facility] Start: 03-21-2022 End: 03-21-2022 Patient encounter procedure No Primary Care Physician [facility] Start: 02-21-2022 End: 02-21-2022 Patient encounter procedure No Primary Care Physician [facility] Start: 01-24-2022 End: 01-24-2022 ambulatory No Primary Care Physician [facility] Work Phone: Start: 01-24-2022 End: 01-24-2022 Patient encounter procedure No Primary Care Physician [facility] Start: 12-24-2021 End: 12-24-2021 Patient encounter procedure Tita Houser APRN.CNP Work Phone: [facility] Comment on above: Headache, unspecifie d headache type (Primary Dx); Viral illness Start: 12-20-2021 End: 12-20-2021 Patient encounter procedure No Primary Care Physician [facility] Start: 12-06-2021 End: 12-06-[address] [facility] Start: 11-21-2021 End: 11-21-[address] [facility] Small [facility] Start: 11-21-2021 End: 11-21-[address] Sheyla Small Work Phone: [facility] Start: 12-24-2020 End: 12-24-2020 ambulatory KATHY RIVERA [facility] Start: 12-24-2020 End: 12-24-2020 Office outpatient new 45 minutes Kathy Rivera MD Work Phone: [facility] Comment on above: Melasma (Primary Dx) ; Dermal nevus of left cheek; Osborne angioma Start: 10-26-2020 End: 10-26-2020 Transcribe Orders Maira Lai MA [facility] Comment on above: Melasma (Primary Dx) Procedures Date Procedure Procedure Detail Performing Clinician Start: 11-02-2024 Ultrasound scan for growth Dr. Yousuf Ortiz MD Work Phone: Start: 08-31-2024 Serologic test for syphilis Dr. Yousuf Ortiz MD Work Phone: Start: 06-03-[address] Thom Ortiz MD Work Phone: Start: 06-03-2024 Hepatitis B surface antigen measurement Dr. Yousuf Ortiz MD Work Phone: Start: 06-03-2024 Hepatitis C antibody measurement Dr. Yousuf Ortiz MD Work Phone: Comment on above: Non Reactive: < 0.8 Equivocal: >/= 0.8 to < 1.0 Reactive: >/= 1.0The CDC requires that a reactive/equivocal HCV antibody result be sent out for confirmation. HCV Quant by PCR testing. Start: 06-03-[address] Yousuf Ortiz MD Work Phone: Start: 06-03-[address] Yousuf Ortiz MD Work Phone: Comment on above: Antibody Results Int erpretation of Immune Status Non Reactive Presumed Non-Immune Equivocal Equivocal Reactive Presumed Immune Start: 12-24-2021 Urnls dip stick/tabl et rgnt auto w/o microscopy Tita Houser CHANGE COORDINATOR.DROP WIRE OPERATOR Work Phone: Group B Streptococcu s Culture No Primary Care Physician Urine culture Dr. Sheyla Polk Work Phone: Plan of Treatment Date Care Activity Detail Author Start: 04-07-2032 Urine microalbumin profile [facility] Start: 11-09-2029 Tetanus vaccination Tetanus: Every 1 0yrs [facility] Start: 03-20-2024 Covid-19 Vaccine ( season) Covid-19 Vaccine () [facility] Comment on above: Postponed from 01/02 (Declined at this time) Start: 03-20-2024 HIV screening HIV Screening [facility] Comment on above: Postponed from 04/26 (Declined at this time) Start: 03-20-2024 Screening for malign ant neoplasm of cervix [facility] Comment on above: Postponed from 04/26 (Declined at this time) Postponed from 04/26 (Declined at this time) Start: 12-27-2023 COVID-19 VACCINE (3 - Booster for Roxana series) COVID-19 VACCINE (3 - Booster for Roxana series) [facility] Comment on above: Postponed from 05/16 (Declined at this time) Start: 05-04-2023 Behavioral Health Screening Behavioral Health Screening [facility] Start: 05-04-2023 Depression Assessment Depression Ass essment [facility] Start: 02-25-2023 End: 04-27-2023 CBC W Auto Differential panel - Blood CBC + DIFF Lab Routine Encounter to establish care Expected: 02/25/2023, Expires: 04/27/2023 [facility] Work Phone: Comment on above: Expected: 02/25/2023 , Expires: 04/27/2023 Start: 02-25-2023 End: 04-27-2023 Comprehensive metabolic 2000 panel - Serum or Plasma COMP METABOLIC PANEL Lab Routine Encounter to establish care Expected: 02/25/2023, Expires: 04/27/2023 [facility] Work Phone: Comment on above: Expected: 02/25/2023 , Expires: 04/27/2023 Start: 02-25-2023 End: 04-27-2023 Lipid 1996 panel - Serum or Plasma LIPID PANEL BASIC Lab Routine Encounter to establish care Expected: 02/25/2023, Expires: 04/27/2023 [facility] Work Phone: Comment on above: Expected: 02/25/2023 , Expires: 04/27/2023 Start: 01-02-2023 Influenza vaccination INFLUENZA (#1) [facility] Start: 06-18-2022 Patient discharge [facility] Start: 06-17-2022 Administration of medication [facility] Start: 06-17-2022 Application of ice c ollar, cap or bag [facility] Start: 06-17-2022 Catheterization of vein [facility] Start: 06-17-2022 Introduction of urin oniel catheter [facility] Start: 06-17-2022 Measuring intake and output [facility] Start: 06-17-2022 Notification of physician [facility] Start: 06-17-2022 Procedure discontinued [facility] Start: 06-17-2022 Provision of activit y privileges [facility] Start: 06-17-2022 Vital signs measurements [facility] Start: 06-17-2022 [facility] Start: 06-17-2022 Admission procedure [facility] Start: 06-17-2022 Verification routine [facility] Start: 01-02-2022 Influenza vaccination INFLUENZA (#1) [facility] Start: 12-24-2021 End: 01-07-2022 Influenza virus A and B RNA and SARS-CoV-2 (COVID-19) N gene panel - Respiratory specimen by SINA with probe detection [facility] Work Phone: Comment on above: Expected: 12/24/2021 , Expires: 01/07/2022 Start: 01-02-2021 Influenza vaccination Sequenti al Influenza Vaccine (#1) [facility] Start: 2016 HPV TESTING HPV TESTING [facility] Start: 2007 PAP TESTING PAP TESTING [facility] Start: 2004 Hepatitis C screening Hepatitis C [facility] Start: 2004 HEPATITIS C SCREENING HEPATITIS C [facility] Start: 2004 HIV SCREENING HIV SCREENING [facility] Start: 07-06-2002 Urine microalbumin profile DTA P,TDAP,TD (6 - Tdap) [facility] Start: 2001 HIV screening HIV Screening [facility] Start: 1998 Depression screening using PHQ-9 (Patient Health Questionnaire 9) score [facility] Start: 1989 History and physical examination, annual for health maintenance Wellness Visit [facility] Start: 1986 COVID-19 VACCINE (#1) COVID-19 VACCI NE (#1) [facility] Start: 1986 Screening for malign ant neoplasm of cervix Pap Smear [facility] Patient referral [facility] Work Phone: Streptococcus agalac tiae [Presence] in Unspecified specimen by Organism specific culture [facility] Ultrasonography for antepartum monitoring of fetus [facility] for [facility] [facility] Immunizations Immunization Date Immunization [facility] tetanus toxoid, redu faisal diphtheria toxoid, and acellular pertussis vaccine, adsorbed Dr. Yousuf Ortiz MD Work Phone: [facility] 02-24-2024 influenza, injectabl e, madin pilar canine kidney, preservative free Dr. Yousuf Ortiz MD Work Phone: [facility] 03-20-2023 influenza, injectabl e, quadrivalent, contains preservative Jairo Romero MD Work Phone: [facility] 03-20-2023 influenza, injectabl e, quadrivalent, preservative free Dr. Yousuf Ortiz MD Work Phone: [facility] 04-07-2022 tetanus toxoid, redu faisal diphtheria toxoid, and acellular pertussis vaccine, adsorbed No Primary Care Physician [facility] 02-21-2022 influenza, injectabl e, quadrivalent, preservative free Dr. Yousuf Ortiz MD Work Phone: [facility] 02-21-2022 influenza, seasonal, injectable No Primary Care Physician [facility] 03-21-2021 Covid (Moderna) Dr. Yousuf randall MD Work Phone: [facility] 08-02-2020 Covid (Diogo & Diogo) Dr. Yousuf Ortiz MD Work Phone: [facility] 03-20-2020 influenza, injectabl e, quadrivalent, preservative free Jairo Romero MD Work Phone: [facility] 11-10-2019 tetanus toxoid, redu faisal diphtheria toxoid, and acellular pertussis vaccine, adsorbed Jairo Romero MD Work Phone: [facility] 05-27-2019 Influenza, injectabl e, Madin [place] Canine Kidney, preservative free, quadrivalent Jairo Romero MD Work Phone: [facility] 07-10-2014 tetanus toxoid, redu faisal diphtheria toxoid, and acellular pertussis vaccine, adsorbed Jairo Romero MD Work Phone: [facility] 05-30-2005 hepatitis A vaccine, pediatric/adolescent dosage, [address] Yousuf Ortiz MD Work Phone: [facility] 05-30-2005 hepatitis A vaccine, unspecified formulation Titaceleste Houser CHANGE COORDINATOR.DROP WIRE OPERATOR Work Phone: [facility] Work Phone: 12-06-2004 meningococcal polysaccharide vaccine (MPSV4) Dr. Yousuf Ortiz MD Work Phone: [facility] 12-06-2004 Meningococcal, MCV4, unspecified conjugate formulation(groups A, C, Y and W-135) Tita Houser CHANGE COORDINATOR.DROP WIRE OPERATOR Work Phone: [facility] 07-05-2002 TD(adult) unspecifie d formulation Jairo Romero MD Work Phone: [facility] 07-05-2002 tetanus and diphther ia toxoids, adsorbed, preservative free, for adult use (2 Lf of tetanus toxoid and 2 Lf of diphtheria toxoid) Tita Fani CHANGE COORDINATOR.DROP WIRE OPERATOR Work Phone: [facility] 05-04-2000 hepatitis A vaccine, adult dosage Jairo Romero MD Work Phone: [facility] 05-04-2000 tetanus toxoid, adsorbed Jairo Romero MD Work Phone: [facility] 04-29-1999 hepatitis B vaccine, pediatric or pediatric/adolescent dosage Tita Huoser CHANGE COORDINATOR.DROP WIRE OPERATOR Work Phone: [facility] 11-28-1998 hepatitis B vaccine, pediatric or pediatric/adolescent dosage Tita Houser CHANGE COORDINATOR.DROP WIRE OPERATOR Work Phone: [facility] 10-03-1998 hepatitis B vaccine, pediatric or pediatric/adolescent dosage Tita Houser CHANGE COORDINATOR.DROP WIRE OPERATOR Work Phone: [facility] 10-03-1998 measles, mumps and rubella virus vaccine Tita Houser CHANGE COORDINATOR.DROP WIRE OPERATOR Work Phone: [facility] 09-28-1991 diphtheria, tetanus toxoids and acellular pertussis vaccine Dr. Yousuf Ortiz MD Work Phone: [facility] 09-28-1991 diphtheria, tetanus toxoids and pertussis vaccine Tita Houser CHANGE COORDINATOR.DROP WIRE OPERATOR Work Phone: [facility] 09-28-1991 trivalent poliovirus vaccine, live, oral Tita Houser CHANGE COORDINATOR.DROP WIRE OPERATOR Work Phone: [facility] 05-01-1988 diphtheria, tetanus toxoids and acellular pertussis vaccine Dr. Yousuf Ortiz MD Work Phone: [facility] 05-01-1988 diphtheria, tetanus toxoids and pertussis vaccine Tita Houser CHANGE COORDINATOR.DROP WIRE OPERATOR Work Phone: [facility] 05-01-1988 trivalent poliovirus vaccine, live, oral Tita Houser CHANGE COORDINATOR.DROP WIRE OPERATOR Work Phone: [facility] 12-21-1987 haemophilus influenz ae type b vaccine, PRP-D conjugate Tita Houser CHANGE COORDINATOR.DROP WIRE OPERATOR Work Phone: [facility] 12-21-1987 haemophilus influenz ae type b vaccine, PRP-T conjugate Dr. Yousuf Ortiz MD Work Phone: [facility] 09-14-1987 measles, mumps and rubella virus vaccine Tita Houser CHANGE COORDINATOR.DROP WIRE OPERATOR Work Phone: [facility] 04-21-1987 trivalent poliovirus vaccine, live, oral Tita Houser CHANGE COORDINATOR.DROP WIRE OPERATOR Work Phone: [facility] 1986 diphtheria, tetanus toxoids and acellular pertussis vaccine Dr. Yousuf Ortiz MD Work Phone: [facility] 1986 diphtheria, tetanus toxoids and pertussis vaccine Tita Houser CHANGE COORDINATOR.DROP WIRE OPERATOR Work Phone: [facility] 1986 diphtheria, tetanus toxoids and acellular pertussis vaccine Dr. Yousuf Ortiz MD Work Phone: [facility] 1986 diphtheria, tetanus toxoids and pertussis vaccine Tita Houser CHANGE COORDINATOR.DROP WIRE OPERATOR Work Phone: [facility] 1986 trivalent poliovirus vaccine, live, oral Tita Houser CHANGE COORDINATOR.DROP WIRE OPERATOR Work Phone: [facility] 1986 diphtheria, tetanus toxoids and acellular pertussis vaccine Dr. Yousuf Ortiz MD Work Phone: [facility] 1986 diphtheria, tetanus toxoids and pertussis vaccine Tita Houser CHANGE COORDINATOR.DROP WIRE OPERATOR Work Phone: [facility] 1986 trivalent poliovirus vaccine, live, oral Jairo Romero MD Work Phone: [facility] Payers Date Payer Category Payer Unknown [id number] 2024 Self-pay [id number] 2021 Private Health Insurance [id number] 2021 Private Health Insurance [id number] 1986 Unknown [id number]. 903 1986 Unknown [id number]. 479 Unknown [facility] TPA/T[facility]* [id number] Effective for all dates [address] [address] [place] [address] [id number] Unknown [id number] Unknown [id number] Unknown [id number] 2.840.1.429019.3.579.2. 462 Unknown [id number] 2.840.1.737943.3.579.2. 462 Unknown [id number] 2.840.1.716803.3.579.2. 462 Unknown [id number] 2.840.1.745794.3.579.2. 462 Unknown [id number] 2.840.1.641770.3.579.2. 462 Unknown [id number] 2.840.1.161382.3.579.2. 462 Unknown [id number] 2.840.1.865984.3.579.2. 462 Unknown [id number] 2.840.1.169760.3.579.2. 462 Unknown [id number] 2.840.1.584409.3.579.2. 462 Unknown [id number] .840.1.942243.3.579.2. 462 Unknown [id number] 2.840.1.708524.3.579.2. 462 Unknown [id number] 2.840.1.367283.3.579.2. 462 Unknown [id number] 2.840.1.127985.3.579.2. 462 Unknown [id number] 2.840.1.851080.3.579.2. 462 Social History Date Type Detail Facility Tobacco smoking stat [facility] Unknown if ever smoked [facility] Start: 1985 Sex Assigned At Not on file [facility] Start: 12-24-2020 End: 08-03-2024 Tobacco smoking status NHIS Never smoked tobacco [facility] Start: 12-24-2020 End: 03-17-2022 Tobacco use and exposure Smokeless tobacco non-user [facility] Start: 11-21-2021 End: 06-17-2022 Tobacco smoking status NHIS Unknown if ever smoked [facility] Start: 1985 Sex Assigned At Female W [facility] Start: 12-18-2021 Alcohol intake Current non-dr 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 (finding) [facility] Start: 12-14-2021 End: 12-24-2021 Exposure to SARS-CoV-2 (event) Yes [facility] Start: 12-26-2022 End: 08-23-2023 Alcohol intake Current drinker of alcohol (finding) [facility] Start: 12-26-2022 End: 08-23-2023 History of Social function [facility] Work Phone: Start: 12-26-2022 End: 08-23-2023 Tobacco use panel [facility] Work Phone: Adult Depression Screening Assessment 0 [facility] Work Phone: Start: 12-26-2022 Alcohol Comment 1-2 drinks per month [facility] Start: 09-13-2022 Gender identity Identifies as female gender (finding) [facility] Goals Date Patient Goal Desired Activity /State Clinical Notes 12-24-2020 to 11-06-2024 Note Date & Type Note Facility 11-06-2024 Radiology Diagnostic study note [facility] Imaging Services [address] [place], [place] [id number] OB Limited With Biometrics MR#: [id number] Acct: [id number] Name: BRIGID BELLA Rep #: [id number] : 1985 F 39 From: Pet er Peer DO PCP: Dr. Yousuf Ortiz MD Status: REG CLI Study:OB Limited With Biometrics Date of Exam : 11/02/24 Exam# [id number] Ordering Dr: Vande Ve lde,Sheyla DO PROCEDURE: OB LIMITED WITH BIOMETRICS 11/02/2024 REASON FOR EXAM: AMA Advanced maternal age TECHNIQUE: OB LIMITED WITH BIOMETRICS FINDINGS Number: 1 Position: Cephalic Placental Position: Left lateral. Placental Abnormalities: Within normal limits, grade 1. DIMENSIONS: Biparietal Diameter: 7.99 cm/32 weeks, 0 days Head Circumference: 30.19 cm/33 weeks, 4 days Abdominal Circumference: 29.59 cm/33 weeks, 4 days Femur Length: 6.34 cm/32 weeks, 6 days ESTIMATED WEIGHT: 2143 g +/-322 g ESTIMATED WEIGHT PERCENTILE (24+ weeks): 11% ESTIMATED GESTATIONAL AGE: Baseline: 34 weeks, 6 days By Ultrasound: 33 weeks, 2 days ESTIMATED DATE OF DELIVERY: Baseline: December 08, 2024 By Ultrasound: December 19, 2024 BIOPHYSICAL ASSESSMENT: Amniotic Fluid Volume: 3.8 cm maximum vertical pocket. Amniotic Fluid Index: 9.5 cm (8-24 cm normal range) Cardiac Motion: 135 (average) Trunk and Limb Motion: Present. MATERNAL ANATOMY: Adnexa: Neither maternal ovary is successfully identified. Cervical Length (if measured): ANATOMY: survey not performed. US/OB Limited With Biometrics IMPRESSION: Live intrauterine fetus of 33 weeks, 2 days gestational age with estimated due date December 19, 2024 [facility] CC: Dr. Yousuf Ortiz MD; Dr. Sheyla Small DO ~ Rubber Cutting Machine Tender: Signed [facility] 10-28-2024 Progress note [facility] 10-28-2024 Progress note Note Date/Time October 28, 2024 2:22pm [facility] [address], [address] [place] [address] OFFICE VISIT Date of Service: 10/28/24 MR#: [id number] Acct: [id number] Name: BRIGID BELLA Rep #: [id number] : 1985 Provider: Dr. Clau Small DO Age/Sex: 39/F Location: [facility] Status: Signed Intake Vital Signs 08/31/24 09:09 10/12/24 08:52 10/28/24 13:55 Height 5 ft 5 in 5 ft 5 in 5 ft 5 in Weight: 165 lb 2 oz BMI 27.4 BP 111/69 Intake Visit Reasons: 34 wk ob Destination Specialist Required: No Is patient in pain?: No Allergies No Known Allergies Allergy (Verified 10/28/24 13:54) Medications ?Medication ?Instructions ?Recorded ?Confirmed ?Type multivitamin no.47-iron fum 27 cap PO 05/20/24 5 History mg-folate no.1 1 mg-dha 300 mg capsule (PNV-DHA) Last Menstrual Period: 03/03/24 Zika: Zika virus screening: Negative : No PFSH PFSH Medical History Spontaneous onset of labor (spontaneous vaginal delivery) Two vessel umbilical cord Supervision of normal Surgical History [place] teeth extracted No pertinent past surgical history Family History Mother Cancer, Onset Age: 68 gallbladder Diabetes pre Hypertension High cholesterol Father FH: ALS (amyotrophic lateral sclerosis), Onset Age: 67 Hypertension High cholesterol Grandmother Celiac disease Maternal Colon cancer Maternal Grandmother Dementia Paternal Grandfather High cholesterol Paternal Hypertension Paternal Heart disease Myocardial infarction Maternal Social History adopted: No household members: spouse and children housing: house number of children: 2 current occupational status: employed current occupation: [employer] current occupational exposures/hazards: No pets and animals: Yes (2) pets and animals: dog(s) history of recent travel: No ([facility] last week, [place] October 23) sexually active: Yes Smoking Status: Never smoker second hand exposure: No alcohol intake: current alcohol intake frequency: a few times a month details: social 1-2 per month- Not while substance use type: does not use well-balanced diet: daily or most days caffeine: Yes Type: coffee Number of servings: 1 eating out: 1-3 times/week during the past year weight has: remained stable what type of physical activity do you participate in: walking and bicycling frequency: 3-4 times per week duration: 15-30 minutes/day lexx/holiness: Restoration seatbelt use: always do you feel safe at home: Yes additional social history: Terrance- Edger Hand History 3 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 Date Name GA/Weeks Outcome Route Bth Weight Gen Labor Lgth Anesthesia Del Locatn Provider FOB Unknown 01/08/20 [place] 40 live - full term 7# 10oz M veronica 12 hours none [place] Dr. Ibeth Carlos 06/17/22 [place] 40 live - full term 8lbs 1oz Male n one [facility] Trish Murray CNM Terr[place] Delivery Date: 06/17/22 Last Updated by: Diandra Truong see problem list for complications HPI 34 wk ob Details: BRIGID BELLA is a 39 year old who presents for routine OB visit. OB Visit JAZMIN Calculator Estimated Delivery Date Method Current WG Current Estimate 12/08/24 LMP (Certain) 34w 1d Expected Delivery Route/Plan Labor Preferences- CB/BF classes: declines labor support person: [] labor intervention preferences: unmedicated pain management options preferred: minimal interventions cut cord/dad catch: [] : [] PP control planned: [] discussed possible routes of delivery and associated risks: [] special requests: [] Specific Issue/Plans Covid status: [] Flu vaccine: [] Tdap vaccine: [] Rhogam: [] LARC form signed: [] Problem list reviewed and updated with the most current plan of care details and appropriate orders placed. Relevant counseling for the gestational age provided. Continue routine care and follow up unless otherwise noted in visit notes/problem list details Initial Weight: 142 lb Date -?-?-?-?-?-?-?-?-?-?-?-?- EGA Weight BP Urine Prot -?-?-?-?-?-?-?-?-?-?-?-?- Glucose FHR FuHt Pres Dilation -?-?-?-?-?-?-?-?-?-?-?-?- Effaced St Visit Note 06/03/24 -?-?-?-?-?-?-?-?-?--?-?-?- 13w 1d 142 lb (+0 oz) 113/76 -?-?-?-?-?-?-?-?-?-?-?-?- 159 -?-?-?-?-?-?-?-?-?-?-?-?- LC- measurements con with LMP. 13wks. desires nipt. no further bleeding. 07/05/24 -?-?-?-?-?-?-?-?-?-?-?-?- 17w 5d 146 lb 4 oz (+4 lb 4 oz) 101/68 Negative -?-?-?-?-?-?-?-?-?-?-?-?- Negative 147 -?-?-?-?-?-?-?-?-?-?-?-?- JV- low risk nip t. anatomy us ordered. works in [employer] and wants anatomy scan in [place]. 08/03/24 -?-?-?-?-?-?-?-?-?-?-?-?- 21w 6d 152 lb (+10 lb) 102/64 Negative -?-?-?-?-?-?-?-?-?-?-?-?- Negative 136 -?-?-?-?-?-?-?-?-?-?-?-?- MH-No VB. Angella garcia. Nl anatomy reviewed. Some gastric reflux/pepcid 08/31/24 -?-?-?-?-?-?-?-?-?-?-?-?- 25w 6d 156 lb 6 oz (+14 lb 6 oz) 107/71 Negative -?-?-?-?-?-?-?-?-?-?-?-?- Negative 140 -?-?-?-?-?-?-?-?-?-?-?-?- SM- no vb crampi sylvain good fm. [place] week 09/29/24 -?-?-?-?-?-?-?-?-?-?-?-?- 30w 0d 164 lb 2 oz (+22 lb 2 oz) 107/74 Negative -?-?-?-?-?-?-?-?-?-?-?-?- Negative 130 29 -?-?-?-?-?-?-?-?-?-?-?-?- KW- no vb/lof/ct x. good fm tdap and larc today. no concerns 10/12/24 -?-?-?-?-?-?-?-?-?-?-?-?- 31w 6d 163 lb 4 oz (+21 lb 4 oz) 103/62 Negative -?-?-?-?-?-?-?-?-?-?-?-?- Negative 143 31.5 -?-?-?-?-?-?-?-?-?-?-?-?- JV- no lof, vagi nal bleeding, or dec fm. no complaints today. discussed RSV vaccine between 32-36 weeks. THe vaccine when given in lasts for baby's first 8 months of life. if baby gets the RSV vaccine after , it can be given at 1 week of age and lasts for 5-6 months. 10/28/24 -?-?-?-?-?-?-?-?-?-?-?-?- 34w 1d 165 lb 2 oz (+23 lb 2 oz) 111/69 -?-?-?-?-?-?-?-?-?-?-?-?- 140 34 Cephalic -?-?-?-?-?-?-?-?-?-?-?-?- JV- patient rece ived the RSV vaccine This week. 10/24/24. no lof, vaginal bleeding, or dec fm. JV- patient received the RSV vaccine This week. 10/24/24. no lof, vaginal bleeding, or dec fm. growth scan 36 weeks ACOG First Trimester First Trimester: Desire for , Alcohol, Tobacco Cessation, Illicit/Recreational Drug/Substance Use, Intimate Partner Violence, Barriers to care, Unstable Housing, Communication Barriers, Environmental/Work Hazards, Anticipated Course of Care, Toxoplasmosis Precations, Use of Any medications, Sexual activity, Exercise, Dental Care, Sauna/Hot tub use, Seat Belt use, Childbirth classes/Hospital facilities, Travel, Indications for Ultrasound and Screening for Aneuploidy; Discussed Second Trimester Second Trimester: Signs and Symptoms of Labor, Selecting a care provider, Reproductive Life Planning & Contreception, Care Planning, Depression/Anxiety and Intimate Partner Violence; Discussed Tobacco Cessation Third Trimester Third Trimester: Pain Management Plans, Labor support person(s), Immediate Larc, Movement Monitoring, Signs and Symptoms of Preeclampsia and Rough And Ready Education Coding Level of Care Code OB Routine Diagnoses Advanced maternal age (AMA) in Encounter for supervision of other normal in second trimester Z34.82 Normal : other normal Trimester: second trimester 34 weeks gestation of Z3A.34 Weeks of gestation: 34 weeks FH: ALS (amyotrophic lateral sclerosis) Z82.0 Hyperlipidemia E78.5 Assessment and Plan Assessment and Plan (1) Advanced maternal age (AMA) in : Status: Acute Comment: growth US 36 weeks discussed delivery by 40 weeks or increased testing if desired delivery by 41 weeks to reduce medical interventions. (2) Supervision of normal : Status: Acute Qualifiers: Normal : other normal Trimester: second trimester Qualified Code(s): Z34.82 - Encounter for supervision of other normal , second trimester Comment: [id number], JAZMIN 12/08/24, surprise Kevin Adams, Terrance (3) : Status: Acute Qualifiers: Weeks of gestation: 34 weeks Qualified Code(s): Z3A.34 - 34 weeks gestation of Comment: elects NIPT WITHOUT Gender, Low risk; nl anatomy US (4) FH: ALS (amyotrophic lateral sclerosis): Status: Acute Comment: Father- (5) Hyperlipidemia: Status: Acute Comment: Trying to control with diet alone Orders: Orders POC Urinalysis 2 Dip (Clinic) Today OB Limited (No Biometrics) Today O09.529 - Supervision of elderly multigravida, unspecified trimester 10/28/24 1422 <Electronically signed by Sheyla Mendoza DO> Date _ Sheyla Small DO Cosigner Signature: Date (if applicable) CC: ~ [facility] Work Phone: 1(852) 152-727105-29-2025 Progress [facility] [address] [place] [address], [address] [place] [address] OFFICE VISIT Date of Service: 09/29/24 MR#: [id number] Acct: [id number] Name: BRIGID BELLA Rep #: [id number] : 1985 Provider: LIMA Valverde Age/Sex: 39/F Location: [facility] Status: Signed Intake Vital Signs 08/03/24 08:30 08/03/24 08:46 08/31/24 09:09 09/29/24 15:15 Height 5 ft 5 in 5 ft 5 in 5 ft 5 in 5 ft 5 in Weight: 164 lb 2 oz BMI 27.3 BP 107/74 Intake Visit Reasons: 30wk ob Chief Complaint: 30wk OB Destination Specialist Required: No Is patient in pain?: No Allergies No Known Allergies Allergy (Verified 09/29/24 15:13) Medications ?Medication ?Instructions ?Recorded ?Confirmed ?Type multivitamin no.47-iron fum 27 cap PO 05/20/24 5 History mg-folate no.1 1 mg-dha 300 mg capsule (PNV-DHA) Last Menstrual Period: 03/03/24 : No Have you fallen in the past year?: No PFSH PFSH Medical History Spontaneous onset of labor (spontaneous vaginal delivery) Two vessel umbilical cord Supervision of normal Surgical History [place] teeth extracted No pertinent past surgical history Family History Mother Cancer, Onset Age: 68 gallbladder Diabetes pre Hypertension High cholesterol Father FH: ALS (amyotrophic lateral sclerosis), Onset Age: 67 Hypertension High cholesterol Grandmother Celiac disease Maternal Colon cancer Maternal Grandmother Dementia Paternal Grandfather High cholesterol Paternal Hypertension Paternal Heart disease Myocardial infarction Maternal Social History adopted: No household members: spouse and children housing: house number of children: 2 current occupational status: employed current occupation: [employer] current occupational exposures/hazards: No pets and animals: Yes (2) pets and animals: dog(s) history of recent travel: No ([facility] last week, [place] October 23) sexually active: Yes Smoking Status: Never smoker second hand exposure: No alcohol intake: current alcohol intake frequency: a few times a month details: social 1-2 per month- Not while substance use type: does not use well-balanced diet: daily or most days caffeine: Yes Type: coffee Number of servings: 1 eating out: 1-3 times/week during the past year weight has: remained stable what type of physical activity do you participate in: walking and bicycling frequency: 3-4 times per week duration: 15-30 minutes/day lexx/holiness: Restoration seatbelt use: always do you feel safe at home: Yes additional social history: Terrance- Edger Hand History 3 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 Date Name GA/Weeks Outcome Route Bth Weight Gen Labor Lgth Anesthesia Del Locatn Provider FOB Unknown 01/08/20 [place] 40 live - full term 7# 10oz M veronica 12 hours none [place] Dr. Ibeth Carlos 06/17/22 [place] 40 live - full term 8lbs 1oz Male n one [facility] Trish Murray CNM [place] Delivery Date: 06/17/22 Last Updated by: Diandra Truong see problem list for complications HPI 30wk ob Details: BRIGID BELLA is a 39 year old who presents for routine OB visit. OB Visit JAZMIN Calculator Estimated Delivery Date Method Current WG Current Estimate 12/08/24 LMP (Certain) 30w 0d Expected Delivery Route/Plan Labor Preferences- CB/BF classes: declines labor support person: [] labor intervention preferences: unmedicated pain management options preferred: minimal interventions cut cord/dad catch: [] : [] PP control planned: [] discussed possible routes of delivery and associated risks: [] special requests: [] Specific Issue/Plans Covid status: [] Flu vaccine: [] Tdap vaccine: [] Rhogam: [] LARC form signed: [] Problem list reviewed and updated with the most current plan of care details and appropriate ordersplaced. Relevant counseling for the gestational age provided. Continue routine care and follow up unless otherwise noted in visit notes/problem list details Initial Weight: 142 lb Date -?-?-?-?-?-?-?-?-?-?-?-?- EGA Weight BP Urine Prot -?-?-?-?-?-?-?-?-?-?-?-?- Glucose FHR FuHt Pres Dilation -?-?-?-?-?-?-?-?-?-?-?-?- Effaced St Visit Note 06/03/24 -?-?-?-?-?-?-?-?-?-?-?-?- 13w 1d 142 lb (+0 oz) 113/76 -?-?-?-?-?-?-?-?-?-?-?-?- 159 -?-?-?-?-?-?-?-?-?-?-?-?- LC- measurements con with LMP. 13wks. desires nipt. no further bleeding. 07/05/24 -?-?-?-?-?-?-?-?-?-?-?-?- 17w 5d 146 lb 4 oz (+4 lb 4 oz) 101/68 Negative -?-?-?-?-?-?-?-?-?-?-?-?- Negative 147 -?-?-?-?-?-?-?-?-?-?-?-?- JV- low risk nip t. anatomy us ordered. works in [employer] and wants anatomy scan in [place]. 08/03/24 -?-?-?-?-?-?-?-?-?-?-?-?- 21w 6d 152 lb (+10 lb) 102/64 Negative -?--?-?-?-?-?-?-?-?-?-?-?- Negative 136 -?-?-?-?-?-?-?-?-?-?-?-?- MH-No VB. Angella garcia. Nl anatomy reviewed. Some gastric reflux/pepcid 08/31/24 -?-?-?-?-?-?-?-?-?-?-?-?- 25w 6d 156 lb 6 oz (+14 lb 6 oz) 107/71 Negative -?-?-?-?-?-?-?-?-?-?-?-?- Negative 140 -?-?-?-?-?-?-?-?-?--?-?-?- SM- no vb crampi ng good fm. travleing [place] next week 09/29/24 -?-?-?-?-?-?-?-?-?-?-?-?- 30w 0d 164 lb 2 oz (+22 lb 2 oz) 107/74 Negative -?-?-?-?-?-?-?-?-?-?-?-?- Negative 130 29 -?-?-?-?-?-?-?-?-?-?-?-?- KW- no vb/lof/ct x. good fm tdap and larc today. no concerns ACOG First Trimester First Trimester: Desire for , Alcohol, Tobacco Cessation, Illicit/Recreational Drug/Substance Use, Intimate Partner Violence, Barriers to care, Unstable Housing, Communication Barriers, Environmental/Work Hazards, Anticipated Course of Care, Toxoplasmosis Precations, Use of Any med ications, Sexual activity, Exercise, Dental Care, Sauna/Hot tub use, Seat Belt use, Childbirth classes/Hospital facilities, Travel, Indications for Ultrasound and Screening for Aneuploidy; Discussed Second Trimester Second Trimester: Signs and Symptoms of Labor, Selecting a care provider, Reproductive Life Planning & Contreception, Care Planning, Depression/Anxiety and Intimate Partner Violence; Discussed Tobacco Cessation Third Trimester Third Trimester: Pain Management Plans, Labor support person(s), Immediate Larc, Movement Monitoring, Signs and Symptoms of Preeclampsia and Rough And Ready Education ROS Const Reports system reviewed and no additional complaints, except as documented Eyes Reports system reviewed and no additional complaints, except as documented ENT Reports system reviewed and no additional complaints, except as documented Card Reports system reviewed and no additional complaints, except as documented Resp Reports system reviewed and no additional complaints, except as documented GI Reports system reviewed and no additional complaints, except as documented, Denies nausea and Denies vomiting Reports system reviewed and no additional complaints, except as documented Musc Reports system reviewed and no additional complaints, except as documented Skin/Breast Reports system reviewed and no additional complaints, except as documented Neuro Yes system reviewed and no additional complaints, except as documented Psych Reports system reviewed and no additional complaints, except as documented Endo Reports system reviewed and no additional complaints, except as documented Ciaran/Lymph Reports system reviewed and no additional complaints, except as documented Aller/Immun Reports system reviewed and no additional complaints, except as documented Exam Const General: cooperative, healthy appearing and no acute distress Orientation: alert, awake and oriented x3 Neck Neck: normal visual inspection and full ROM Resp Effort & Inspection: normal respiratory effort, able to speak in complete sentences and symmetric chest movement GI Inspection: normal to inspection Palpation: soft and other Other: gravid Skin General: no rashes or lesions noted Neuro General: patient alert, patient awake and patient oriented x3 Cognition: normal cognition Speech: speech normal Gait: normal gait Motor: muscle tone normal throughout Extrem General: normal to inspection and full ROM Psych Appearance: grossly normal Mental Status: mental status grossly normal Mood: congruent mood Affect: normal affect Speech and Movement: speech and movement normal Attitude: cooperative Thought Process: normal Thought Content: normal Judgment: judgment good Results POC Urinalysis 2 Dip (Clinic) Office Urine Glucose Negative Last Edit by Hailey Stallworth on 09/29/24 15:24 Office Urine Protein Negative Last Edit by Hailey Stallworth on 09/29/24 15:24 Immunizations Adacel(Tdap Adolesn/Adult)(PF) 2 Lf-(2.5-5-3-5)-5 Lf/0.5 mL IM syringe Performing Provider: Radha Valverde CNM Performing Location: [facility] Administered by: Hailey Stallworth on 09/29/24 15:27 Dose Route Admin Location Dispensed Lot Number Expiration Date [employer] Sales Advisor 0.5 mL IM Left Deltoid 0.5 mL [id number] 08/31/26 27050-270-17 SANOF [employer] VIS Given Date VIS Provided VIS Publication Date 09/29/24 Single Vaccine 24 Eligibility Eligibility Date Funding Source Not Applicable Coding Level of Care Code OB Routine Diagnoses Advanced maternal age (AMA) in Encounter for supervision of other normal in second trimester Z34.82 Normal : other normal Trimester: second trimester 30 weeks gestation of Z3A.30 Weeks of gestation: 30 weeks FH: ALS (amyotrophic lateral sclerosis) Z82.0 Hyperlipidemia E78.5 Assessment and Plan Assessment and Plan (1) Advanced maternal age (AMA) in : Status: Acute Comment: growth US 36 weeks discussed delivery by 40 weeks or increased testing if desired delivery by 41 weeks to reduce medical interventions. (2) Supervision of normal : Status: Acute Qualifiers: Normal : other normal Trimester: second trimester Qualified Code(s): Z34.82 - Encounter for supervision of other normal , second trimester Comment: [id number], JAZMIN 12/08/24, [facility] Kevin Lopez, Terrance (3) : Status: Acute Qualifiers: Weeks of gestation: 30 weeks Qualified Code(s): Z3A.30 - 30 weeks gestation of Comment: elects NIPT WITHOUT Gender, Low risk; nl anatomy US (4) FH: ALS (amyotrophic lateral sclerosis): Status: Acute Comment: Father- (5) Hyperlipidemia: Status: Acute Comment: Trying to control with diet alone Orders: Orders POC Urinalysis 2 Dip (Clinic) Today Tdap Immunization Today Z23 - Encounter for immunization Plan Details Additional Comments: ACOG trimester education reviewed and updated. see problem list details for updated plan management information and see below for orders placed atthis visit. [place] appropriate handout given. Clinical Quality Measures Falls Risk Screening/Assistive Devices Have you fallen in the past year?: No 09/29/24 1542 s LIMA> Date _ Radha Valverde CNM Cosigner Signature: Date (if applicable) CC: ~ [place] [id number] Progress note Author Radha Valverde [facility] Note Date/Time September 29, 2024 3:42p m [facility] [address] [place] [address], [address] [place] [address] OFFICE VISIT Date of Service: 09/29/24 MR#: [id number] Acct: [id number] Name: BRIGID BELLA Rep #: [id number] : 1985 Provider: LIMA Valverde Age/Sex: 39/F Location: [facility] Status: Signed Intake Vital Signs 08/03/24 08:30 08/03/24 08:46 08/31/24 09:09 09/29/24 15:15 Height 5 ft 5 in 5 ft 5 in 5 ft 5 in 5 ft 5 in Weight: 164 lb 2 oz BMI 27.3 BP 107/74 Intake Visit Reasons: 30wk ob Chief Complaint: 30wk OB Destination Specialist Required: No Is patient in pain?: No Allergies No Known Allergies Allergy (Verified 09/29/24 15:13) Medications ?Medication ?Instructions ?Recorded ?Confirmed ?Type multivitamin no.47-iron fum 27 cap PO 05/20/24 5 History mg-folate no.1 1 mg-dha 300 mg capsule (PNV-DHA) Last Menstrual Period: 03/03/24 : No Have you fallen in the past year?: No PFSH PFSH Medical History Spontaneous onset of labor (spontaneous vaginal delivery) Two vessel umbilical cord Supervision of normal Surgical History [place] teeth extracted No pertinent past surgical history Family History Mother Cancer, Onset Age: 68 gallbladder Diabetes pre Hypertension High cholesterol Father FH: ALS (amyotrophic lateral sclerosis), Onset Age: 67 Hypertension High cholesterol Grandmother Celiac disease Maternal Colon cancer Maternal Grandmother Dementia Paternal Grandfather High cholesterol Paternal Hypertension Paternal Heart disease Myocardial infarction Maternal Social History adopted: No household members: spouse and children housing: house number of children: 2 current occupational status: employed current occupation: [employer] current occupational exposures/hazards: No pets and animals: Yes (2) pets and animals: dog(s) history of recent travel: No ([facility] last week, [place] October 23) sexually active: Yes Smoking Status: Never smoker second hand exposure: No alcohol intake: current alcohol intake frequency: a few times a month details: social 1-2 per month- Not while substance use type: does not use well-balanced diet: daily or most days caffeine: Yes Type: coffee Number of servings: 1 eating out: 1-3 times/week during the past year weight has: remained stable what type of physical activity do you participate in: walking and bicycling frequency: 3-4 times per week duration: 15-30 minutes/day lexx/holiness: Restoration seatbelt use: always do you feel safe at home: Yes additional social history: Terrance- Edger Hand History 3 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 Date Name GA/Weeks Outcome Route Bth Weight Infant Gen Labor Lgth Anesthesia Del Locatn Provider FOB Unknown 01/08/20 [place] 40 live - full term 7# 10oz M veronica 12 hours none [place], [place] Dr. Ibeth Carlos 06/17/22 [place] 40 live - full term 8lbs 1oz Male n one [facility] Trish Murray [facility] Terrance Delivery Date: 06/17/22 Last Updated by: Diandra Truong see problem list for complications HPI 30wk ob Details: BRIGID BELLA is a 39 year old who presents for routine OB visit. OB Visit JAZMIN Calculator Estimated Delivery Date Method Current WG Current Estimate 12/08/24 LMP (Certain) 30w 0d Expected Delivery Route/Plan Labor Preferences- CB/BF classes: declines labor support person: [] labor intervention preferences: unmedicated pain management options preferred: minimal interventions cut cord/dad catch: [] : [] PP control planned: [] discussed possible routes of delivery and associated risks: [] special requests: [] Specific Issue/Plans Covid status: [] Flu vaccine: [] Tdap vaccine: [] Rhogam: [] LARC form signed: [] Problem list reviewed and updated with the most current plan of care details and appropriate orders placed. Relevant counseling for the gestational age provided. Continue routine care and follow up unless otherwise noted in visit notes/problem list details Initial Weight: 142 lb Date -?-?-?-?-?-?-?-?-?-?-?-?- EGA Weight BP Urine Prot -?-?-?-?-?-?-?-?-?-?-?-?- Glucose FHR FuHt Pres Dilation -?-?-?-?-?-?-?-?-?-?-?-?- Effaced St Visit Note 06/03/24 -?-?-?-?-?-?-?-?-?-?-?-?- 13w 1d 142 lb (+0 oz) 113/76 -?-?-?-?-?-?-?-?-?-?-?-?- 159 -?-?-?-?-?-?-?-?-?-?-?-?- LC- measurements con with LMP. 13wks. desires nipt. no further bleeding. 07/05/24 -?-?-?-?-?-?-?-?-?-?-?-?- 17w 5d 146 lb 4 oz (+4 lb 4 oz) 101/68 Negative -?-?-?-?-?-?-?-?-?-?-?-?- Negative 147 -?-?-?-?-?-?-?-?-?-?-?-?- JV- low risk nip t. anatomy us ordered. works in [employer] and wants anatomy scan [place]. 08/03/24 -?-?-?-?-?-?-?-?-?-?-?-?- 21w 6d 152 lb (+10 lb) 102/64 Negative -?--?-?-?-?-?-?-?-?-?-?-?- Negative 136 -?-?-?-?-?-?-?-?-?-?-?-?- MH-No VB. Feelin g flutters. Nl anatomy reviewed. Some gastric reflux/pepcid 08/31/24 -?-?-?-?-?-?-?-?-?-?-?-?- 25w 6d 156 lb 6 oz (+14 lb 6 oz) 107/71 Negative -?-?-?-?-?-?-?-?-?-?-?-?- Negative 140 -?-?-?-?-?-?-?-?-?--?-?-?- SM- no vb crampi ng good [place] -?-?-?-?-?-?-?-?-?-?-?-?- 30w 0d 164 lb 2 oz (+22 lb 2 oz) 107/74 Negative -?-?-?-?-?-?-?-?-?-?-?-?- Negative 130 29 -?-?-?-?-?-?-?-?-?-?-?-?- KW- no vb/lof/ct x. good fm tdap and larc today. no concerns ACOG First Trimester First Trimester: Desire for , Alcohol, Tobacco Cessation, Illicit/Recreational Drug/Substance Use, Intimate Partner Violence, Barriers to care, Unstable Housing, Communication Barriers, Environmental/Work Hazards, Anticipated Course of Care, Toxoplasmosis Precations, Use of Any medications, Sexual activity, Exercise, Dental Care, Sauna/Hot tub use, Seat Belt use, Childbirth classes/Hospital facilities, Travel, Indications for Ultrasound and Screening for Aneuploidy; Discussed Second Trimester Second Trimester: Signs and Symptoms of Labor, Selecting a care provider, Reproductive Life Planning & Contreception, Care Planning, Depression/Anxiety and Intimate Partner Violence; Discussed Tobacco Cessation Third Trimester Third Trimester: Pain Management Plans, Labor support person(s), Immediate Larc, Movement Monitoring, Signs and Symptoms of Preeclampsia and Education ROS Const Reports system reviewed and no additional complaints, except as documented Eyes Reports system reviewed and no additional complaints, except as documented ENT Reports system reviewed and no additional complaints, except as documented Card Reports system reviewed and no additional complaints, except as documented Resp Reports system reviewed and no additional complaints, except as documented GI Reports system reviewed and no additional complaints, except as documented, Denies nausea and Denies vomiting Reports system reviewed and no additional complaints, except as documented Musc Reports system reviewed and no additional complaints, except as documented Skin/Breast Reports system reviewed and no additional complaints, except as documented Neuro Yes system reviewed and no additional complaints, except as documented Psych Reports system reviewed and no additional complaints, except as documented Endo Reports system reviewed and no additional complaints, except as documented Ciaran/Lymph Reports system reviewed and no additional complaints, except as documented Aller/Immun Reports system reviewed and no additional complaints, except as documented Exam Const General: cooperative, healthy appearing and no acute distress Orientation: alert, awake and oriented x3 Neck Neck: normal visual inspection and full ROM Resp Effort & Inspection: normal respiratory effort, able to speak in complete sentences and symmetric chest movement GI Inspection: normal to inspection Palpation: soft and other Other: gravid Skin General: no rashes or lesions noted Neuro General: patient alert, patient awake and patient oriented x3 Cognition: normal cognition Speech: speech normal Gait: normal gait Motor: muscle tone normal throughout Extrem General: normal to inspection and full ROM Psych Appearance: grossly normal Mental Status: mental status grossly normal Mood: congruent mood Affect: normal affect Speech and Movement: speech and movement normal Attitude: cooperative Thought Process: normal Thought Content: normal Judgment: judgment good Results POC Urinalysis 2 Dip (Clinic) Office Urine Glucose Negative Last Edit by Hailey Stallworth on 09/29/24 15:24 Office Urine Protein Negative Last Edit by Hailey Stallworth on 09/29/24 15:24 Immunizations Adacel(Tdap Adolesn/Adult)(PF) 2 Lf-(2.5-5-3-5)-5 Lf/0.5 mL IM syringe Performing Provider: Radha Valverde CNM Performing Location: [facility] Administered by: Hailey Stallworth on 09/29/24 15:27 Dose Route Admin Location Dispensed Lot Number Expiration Date [employer] Sales Advisor 0.5 mL IM Left Deltoid 0.5 mL [id number] 08/31/26 32716-973-84 SANOF [employer]-PASTEUR VIS Given Date VIS Provided VIS Publication Date 09/29/24 Single Vaccine 24 Eligibility Eligibility Date Funding Source Not Applicable Coding Level of Care Code OB Routine Diagnoses Advanced maternal age (AMA) in Encounter for supervision of other normal in second trimester Z34.82 Normal : other normal Trimester: second trimester 30 weeks gestation of Z3A.30 Weeks of gestation: 30 weeks FH: ALS (amyotrophic lateral sclerosis) Z82.0 Hyperlipidemia E78.5 Assessment and Plan Assessment and Plan (1) Advanced maternal age (AMA) in : Status: Acute Comment: growth US 36 weeks discussed delivery by 40 weeks or increased testing if desired delivery by 41 weeks to reduce medical interventions. (2) Supervision of normal : Status: Acute Qualifiers: Normal : other normal Trimester: second trimester Qualified Code(s): Z34.82 - Encounter for supervision of other normal , second trimester Comment: [id number], JAZMIN 12/08/24, [facility] Kevin Lopez, Terrance (3) : Status: Acute Qualifiers: Weeks of gestation: 30 weeks Qualified Code(s): Z3A.30 - 30 weeks gestation of Comment: elects NIPT WITHOUT Gender, Low risk; nl anatomy US (4) FH: ALS (amyotrophic lateral sclerosis): Status: Acute Comment: Father- (5) Hyperlipidemia: Status: Acute Comment: Trying to control with diet alone Orders: Orders POC Urinalysis 2 Dip (Clinic) Today Tdap Immunization Today Z23 - Encounter for immunization Plan Details Additional Comments: ACOG trimester education reviewed and updated. see problem list details for updated plan management information and see below for orders placed at this visit. [place] appropriate handout given. Clinical Quality Measures Falls Risk Screening/Assistive Devices Have you fallen in the past year?: No 09/29/24 154 <Electronically signed by Radha dalal CNM> Date _ Radha Valverde CNM Cosigner Signature: Date (if applicable) CC: ~ [employer] Work Phone: 1(400) 107-631504-02-2025 Evaluation note* Diagnosis Onset Date Resolution Status Admit Date Advanced maternal age (AMA) in acute August 03, 2024 8:21am FH: ALS (amyotrophic lateral sclerosis) acute August 03, 2024 8:21am acute August 03 8:21am Supervision of normal acut e August 03, 2024 8:21am Advanced maternal age (AMA) in acute August 31, 2024 8:59am FH: ALS (amyotrophic lateral sclerosis) acute August 31, 2024 8:59am Hyperlipidemia acute August 8:59am acute August 31 8:59am Supervision of normal acut e August 31, 2024 8:59am Advanced maternal age (AMA) in acute September 29, 2024 3 :12pm FH: ALS (amyotrophic lateral sclerosis) acute September 29, 2024 3 :12pm Hyperlipidemia acute September 29, 2024 3:12pm acute September 29, 2024 3:12pm Supervision of normal acut e September 29, 2024 3:12pm Advanced maternal age (AMA) in acute October 12, 2024 8:49am FH: ALS (amyotrophic lateral sclerosis) acute October 12, 2024 8:49am Hyperlipidemia acute October 12, 2024 8:49am acute October 12 8:49am Supervision of normal acut e October 12, 2024 8:49am Advanced maternal age (AMA) in acute October 28, 2024 1:51pm FH: ALS (amyotrophic lateral sclerosis) acute October 28, 2024 1:51pm Hyperlipidemia acute October 28, 2024 1:51pm acute October 28 1:51pm Supervision of normal acut e October 28, 2024 1:51pm [facility] Work Phone: 1(119) 416-648204-02-2025 Evaluation note* Diagnosis Onset Date Resolution Status Admit Date Advanced maternal age (AMA) in acute August 03, 2024 8:21am FH: ALS (amyotrophic lateral sclerosis) acute August 03, 2024 8:21am acute August 03 8:21am Supervision of normal acut e August 03, 2024 8:21am Advanced maternal age (AMA) in acute August 31, 2024 8:59am FH: ALS (amyotrophic lateral sclerosis) acute August 31, 2024 8:59am Hyperlipidemia acute August 8:59am acute August 31 8:59am Supervision of normal acut e August 31, 2024 8:59am Advanced maternal age (AMA) in acute September 29, 2024 3 :12pm FH: ALS (amyotrophic lateral sclerosis) acute September 29, 2024 3 :12pm Hyperlipidemia acute September 29, 2024 3:12pm acute September 29, 2024 3:12pm Supervision of normal acut e September 29, 2024 3:12pm Advanced maternal age (AMA) in acute October 12, 2024 8:49am FH: ALS (amyotrophic lateral sclerosis) acute October 12, 2024 8:49am Hyperlipidemia acute October 12, 2024 8:49am acute October 12 8:49am Supervision of normal acut e October 12, 2024 8:49am Advanced maternal age (AMA) in acute October 28, 2024 1:51pm FH: ALS (amyotrophic lateral sclerosis) acute October 28, 2024 1:51pm Hyperlipidemia acute October 28, 2024 1:51pm acute October 28 1:51pm Supervision of normal acut e October 28, 2024 1:51pm Advanced maternal age (AMA) in acute November 11, 2024 3:34pm AMA (advanced maternal age) multigravida 35+ acute November 11, 2024 3:34pm FH: ALS (amyotrophic lateral sclerosis) acute November 11, 2024 3:34pm Hyperlipidemia acute November 11, 2024 3:34pm acute November 11 3:34pm Supervision of normal acut e November 11, 2024 3:34pm [facility] Work Phone: 1(143) 449-750803-04-2025 Evaluation note* Diagnosis Onset Date Resolution Status Admit Date Advanced maternal age (AMA) in acute July 05, 2024 3:29pm FH: ALS (amyotrophic lateral sclerosis) acute July 05, 2024 3:29pm Hyperlipidemia acute July 05, 2024 3:29pm acute July 05 3:29pm Supervision of normal acut e July 05, 2024 3:29pm Advanced maternal age (AMA) in acute August 03, 2024 8:21am FH: ALS (amyotrophic lateral sclerosis) acute August 03, 2024 8:21am acute August 03 8:21am Supervision of normal acut e August 03, 2024 8:21am Advanced maternal age (AMA) in acute August 31, 2024 8:59am FH: ALS (amyotrophic lateral sclerosis) acute August 31, 2024 8:59am Hyperlipidemia acute August 8:59am acute August 31 8:59am Supervision of normal acut e August 31, 2024 8:59am Advanced maternal age (AMA) in acute September 29, 2024 3 :12pm FH: ALS (amyotrophic lateral sclerosis) acute September 29, 2024 3 :12pm Hyperlipidemia acute September 29, 2024 3:12pm acute September 29, 2024 3:12pm Supervision of normal acut e September 29, 2024 3:12pm Advanced maternal age (AMA) in acute October 12, 2024 8:49am FH: ALS (amyotrophic lateral sclerosis) acute October 12, 2024 8:49am Hyperlipidemia acute October 12, 2024 8:49am acute October 12 8:49am Supervision of normal acut e October 12, 2024 8:49am [facility] Work Phone: 1(629) 947-517103-04-2025 Evaluation note* Diagnosis Onset Date Resolution Status Admit Date Advanced maternal age (AMA) in acute July 05, 2024 3:29pm FH: ALS (amyotrophic lateral sclerosis) acute July 05, 2024 3:29pm Hyperlipidemia acute July 05, 2024 3:29pm acute July 05 3:29pm Supervision of normal acut e July 05, 2024 3:29pm Advanced maternal age (AMA) in acute August 03, 2024 8:21am FH: ALS (amyotrophic lateral sclerosis) acute August 03, 2024 8:21am acute August 03 8:21am Supervision of normal acut e August 03, 2024 8:21am Advanced maternal age (AMA) in acute August 31, 2024 8:59am FH: ALS (amyotrophic lateral sclerosis) acute August 31, 2024 8:59am Hyperlipidemia acute August 8:59am acute August 31 8:59am Supervision of normal acut e August 31, 2024 8:59am Advanced maternal age (AMA) in acute September 29, 2024 3 :12pm FH: ALS (amyotrophic lateral sclerosis) acute September 29, 2024 3 :12pm Hyperlipidemia acute September 29, 2024 3:12pm acute September 29, 2024 3:12pm Supervision of normal acut e September 29, 2024 3:12pm Advanced maternal age (AMA) in acute October 12, 2024 8:49am FH: ALS (amyotrophic lateral sclerosis) acute October 12, 2024 8:49am Hyperlipidemia acute October 12, 2024 8:49am acute October 12 8:49am Supervision of normal acut e October 12, 2024 8:49am Advanced maternal age (AMA) in acute October 28, 2024 1:51pm FH: ALS (amyotrophic lateral sclerosis) acute October 28, 2024 1:51pm Hyperlipidemia acute October 28, 2024 1:51pm acute October 28 1:51pm Supervision of normal acut e October 28, 2024 1:51pm [facility] Work Phone: 1(750) 204-531701-31-2025 Evaluation note* Diagnosis Onset Date Resolution Status Admit Date Advanced maternal age (AMA) in acute June 03 11:20am FH: ALS (amyotrophic lateral sclerosis) acute June 03 11:20am Hyperlipidemia acute June 032024 11:20am acute June 03, 2024 11:20am Supervision of normal acut e June 03, 2024 11:20am Advanced maternal age (AMA) in acute July 05, 2024 3:29pm FH: ALS (amyotrophic lateral sclerosis) acute July 05, 2024 3:29pm Hyperlipidemia acute July 05, 2024 3:29pm acute July 05 3:29pm Supervision of normal acut e July 05, 2024 3:29pm Advanced maternal age (AMA) in acute August 03, 2024 8:21am FH: ALS (amyotrophic lateral sclerosis) acute August 03, 2024 8:21am acute August 03 8:21am Supervision of normal acut e August 03, 2024 8:21am Advanced maternal age (AMA) in acute August 31, 2024 8:59am FH: ALS (amyotrophic lateral sclerosis) acute August 31, 2024 8:59am Hyperlipidemia acute August 8:59am acute August 31 8:59am Supervision of normal acut e August 31, 2024 8:59am Advanced maternal age (AMA) in acute September 29, 2024 3 :12pm FH: ALS (amyotrophic lateral sclerosis) acute September 29, 2024 3 :12pm Hyperlipidemia acute September 29, 2024 3:12pm acute September 29, 2024 3:12pm Supervision of normal acut e September 29, 2024 3:12pm [employer] Work Phone: 1(749) 875-955604-21-2024 NoteHNO ID: [id number] Author: TITA HOUSER APRN.[facility] Service: ? Author Type: Nurse Practitioner Type: Progress Notes Filed: 08/23/2023 10:35 Note Text: This note was created using NoteWriter. Subjective Brigid Bella is a 38 year old female. [...] history is provided by the patient. No language instructor was used. Eye Problem This is a [...] rhonchi or rales. Chest: (more content not included)...[facility]04-21-2024 History of Present illness Narrative* Tita Houser APRN.DROP WIRE OPERATOR - 08/23/2023 10:09 AM EDT This note was created using Mixed Media Labster. Subjective Brigid Bella is a 38 year old female. [...] history is provided by the patient. No language instructor was used. Eye Problem This is a [...] vertigo, visual change, vomiting or weakness. Nothing aggravatesthe symptoms. She has tried nothing for the [...] persist or sooner if worsening of symptoms Tita Houser APRN.DROP WIRE OPERATOR documented in this encounterOhio[facility]-04-[facility]24 Miscellaneous Notes* Telephone Encounter - Juan A Villarreal LPN - 07/06/2023 2:05 PM EST Detailed VM left on pt's identified voicemail of information below. Juan A Villarreal LPN * Telephone Encounter - Jasmina Salvador LPN - 06/30/2023 8:44 AM EST Patient telephoned, no answer. Message left to call office back for update. Jasmina Salvador LPN * Telephone Encounter - Juan A Villarreal LPN - 06/29/2023 4:53 PM EST Attempted to reach pt by phone without success. Mailbox is full. Juan A Villarreal LPN * Telephone Encounter - Jairo Romero MD - 06/29/2023 4:31 PM EST Her LDL is down below 190 with improved diet. I will remove the lipitor from her med list and wouldhave her continue with diet as requested. * Telephone Encounter - Juan A Villarreal LPN - 06/29/2023 4:20 PM EST Pt given results below. Pt reports she never started Lipitor. She is watching what she eats. She wants to continue what she is doing. Juan A Villarreal LPN * Telephone Encounter - Juan A Villarreal LPN - 06/29/2023 4:18 PM EST ----- Message from Jairo Romero MD sent at 06/29/2023 2:37 PM EST ----- Cholesterol level improving on Lipitor 40 mg daily, but is still high. If she is tolerating 40 mg dosage without side effects, I would recommend increasing dosage to 80 mg daily. If agreeable, will send rx to requested pharmacy. documented in this encounterOhio[facility]11-17-2023 NoteHNO ID: [id number] Author: Jairo Romero MD Service: ? Author Type: Physician Type: Progress Notes Filed: 03/20/2023 7:41 PM Note Text: Chief Complaint Patient presents with: Physical HPI Brigid Bella is a 37 year old female [...] last [address] 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 Melasma on forehead may be slightly corporate officer. Head: Normocephalic, no masses, lesions, tenderness or [...] fL 89.7 MCH 2 (more content not included)...[facility]08-25-2023 NoteHNO ID: [id number] Author: Jairo Romero MD Service: ? Author Type: Physician Type: Progress Notes Filed: 12/26/2022 10:45 AM Note Text: Chief Complaint Patient presents with: Establish Care: Wellness visit paperwork HPI Brigid Bella is a 37 year old female [...] 58 Resp 16 Ht 162.6 cm (5' 4) Wt 62.1 kg (137 lb) LMP (LMP [...] which included preparing to see the patient, [id number] patient care, completing clinical documentation, obtaining and/or reviewing separately obtained history, performing a medically appropriate examination, counseling and educating the patient/family/caregiver, and ordering medications, tests, or procedures. Jairo Romero [facility]08-25-2023 History of Present illness Narrative* Jairo Romero MD - 12/26/2022 8:43 AM EDT Chief Complaint Patient presents with: Establish Care: Wellness visit paperwork HPI Brigid Bella is a 37 year old female who presents here today for Above Complaints.. Previous PCP Dr. Kwabena Robles with last OV 03/2022 for annual wellness exam. Discussed it has been less than11 months since her last physical and insurance [...] 58 Resp 16 Ht 162.6 cm (5' 4) Wt 62.1 kg (137 lb) LMP (LMP [...] which included preparing to see the patient, [id number] patient care, completing clinical documentation, obtaining and/or reviewing separately obtained history, performing a medically appropriate examination, counseling and educating the pat ient/family/caregiver, and ordering medications, tests, or procedures. Jairo Romero MD documented in this encounterOhiohealth [facility]02-15-2023 Progress note Author Trish Murray [facility] June 18, 2022 10:11am Note Date/Time June 18, 2022 10:11am [facility] Medical Records Department [address] [place] [address] Progress Note - OBGYN 06/18/22 1009 MR#: [id number] Acct: [id number] Name: BRIGID BELLA Rep #:[id number] : 1985 37 From: Trish Murray CNM PCP: Care Physician,No Primary Status :ADM IN Location: [address] Subjective Subjective Patient doing well without complaints. Tolerating PO. Ambulating and voiding without difficulty. Feeding well. Denies chest pain, shortness of breath, calf pain/swelling, fevers, chills, lightheadedness. Objective Data Objective Data Vital Signs: Vital Signs Temp Pulse Resp BP O2 Del Method 98.3 F 68 16 100/57 L Room Air 06/18/22 09:20 06/18/22 09:20 06/18/22 09:20 06/18/22 09:20 06/17/22 20:10 Oxygen Delivery Method Room Air Weight: 172 lb 3.2 oz Body Mass Index (BMI) 28.6 Intake & Output: Intake and Output for Last 24 Hours 06/16/22 06/17/22 06/18/22 23:59 23:59 23:59 Output Total 850 / 850 Balance -850 / -850 Lab / Micro Data Result Diagrams: 06/17/22 00:52 Physical Exam Const alert, oriented x3 and no apparent distress HEENT normocephalic Neck full ROM Lymph Lymphatic: no lymphadenopathy noted Chest inspection of chest normal Resp normal respiratory effort, normal air movement and no retractions Cardio regular rate and regular rhythm GI GI Narrative: fundus firm at 1 below u. mild lochia. no clots Extremity normal to inspection and full ROM Skin no rashes or lesions noted Neuro oriented x3 Psych mental status grossly normal Assessment & Plan (1) (spontaneous vaginal delivery): COMMENT: IAL 40+2, boy:ALBERT Leija PLAN: s/p PPD # 1 1. routine post delivery care 2. breast feeding- support given 3. rh positive 4. rubella immune 5. d/c home today 06/18/22 1011 <Electronically signed by Trish Murray CNM> Cosigner Signature (if applicable): CC: ~ Signed [facility] Work Phone: 1(375) 375-130002-14-2023 Discharge summary Author Trish Murray [facility] June 17, 2022 1:53am Note Date/Time June 17, 2022 1:53am [facility] Medical Records Department [address] [place] [address] Instructions for Home/Discharge Instructions 06/17/22 0152 MR#: [id number] Acct: [id number] Name: SHAYNEBRIGID CHRISTIANA Rep #:[id number] : 1985 37 From: Trish Murray CNM PCP: Nick Physician,No Primary Status :ADM IN Discharge Instructions Diet Discharge Diet: No restrictions Activity Discharge Activity: May Not Drive and May Shower May resume sexual activity in: 6 weeks Weight Bearing Status: Full weight bearing Dressing / Incision Call your doctor if your incision/area has: Sudden Increased Bleeding, IncreasedPain/ Swelling and Foul Smelling Discharge Call your doctor if you observe: Fever of 101 or Higher, Numbness or Tingling, Change in Color, Inability to urinate, Inability to have a bowel movement, Usingmore than 1 pad per hour, Shortness of breath, Dizziness, Fainting spells, Chestpain, Calf discomfort and Uncontrolled pain Follow Up Care Please Follow Up With: Trish Murray CNM When: 6 weeks , please call office to make an appointment. Congratulations on the of your baby juan miguel LEIJA! Test Results: Test results from this visit will be discussed in further detail at your follow- up appointment, if applicable. Discharge Plan Admission Admit Date/Time: 06/17/22 00:40 Attending Provider: Trish Murray Primary Care Provider: Nick Adams,Clair Primary Discharge Orders/Prescriptions Prescriptions: No Action DHA 200 mg capsule PO Referrals / Follow Up: Nick Adams,Clair Primary [Primary Care Provider] - 06/17/22 0153<Electronically signed by Trish Murray CNM>Trish Murray CNM CC: No Primary Care Physician ~ Signed [facility] Work Phone: 1(121) 566-548002-14-2023 History and physical note Author Trish Murray [facility] June 17, 2022 1:47am Note Date/Time June 17, 2022 1:47am [facility] Medical Records Department [address] [place] [address] H&P 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 Presented to the unit with cervical exam rupture of membranes with clear fluid. 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 -anemia treated with slow release iron and resolved by 3rd trimester -05/29 nl growth EFW 3167gms 51% Maternal Data Information JAZMIN Calculator Estimated Delivery Date Method Current WG Current Estimate 06/15/22 LMP (Certain) 40w 2d Other Estimates 06/15/22 Ultrasound #1 40w 2d Final JAZMIN: 06/15/22 Final JAZMIN Source: LMP PFSH PFSH Home Medications docosahexaenoic acid 200 mg capsule ( DHA) mg PO 11/21/21 [History Last Taken Unknown] Allergy/AdvReac Type Severity Reaction Status Date / Time No Known Allergies Allergy Verified 06/13/22 09:07 Social History adopted: No household members: spouse and children housing: house number of children: 1 current occupational status: employed current occupation: [employer] current occupational exposures/hazards: No pets and animals: Yes (2) pets and animals: dog(s) history of recent travel: Yes ([facility] last week, [place] October 23) out of state: Yes out of country: No sexually active: Yes Smoking Status: Never smoker second hand exposure: No alcohol intake: former details: social 1-2 per month substance use type: does not use well-balanced diet: about half the time caffeine: No eating out: rarely or never during the past year weight has: remained stable what type of physical activity do you participate in: walking frequency: 1-2 times per week duration: 15-30 minutes/day lexx/holiness: Restoration seatbelt use: always do you feel safe at home: Yes 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 Date Name GA/Weeks Outcome Route Bth Weight Gen Labor Lgth Anesthesia Del Locatn Provider FOB Unknown 01/08/20 John 40 live - full term 7# 10oz M veronica 12 hours none [place], [place] Dr. Ibeth Carlos Visit Details Expected Delivery Route/Plan Labor Preferences- CB/BF classes: [] labor support person: labor intervention preferences: hypno , birthing tub pain management options preferred: no epidural cut cord/dad catch: [] : plans to breast feed PP control planned: [] discussed possible routes of delivery and associated risks: [] special requests: [] Plans Covid status: vaccinated Flu vaccine: [] Tdap vaccine: [] Rhogam: [] LARC form signed: [] Problem list reviewed and updated with the most current plan of care details and appropriate orders placed. Relevant counseling for the gestational age provided. Continue routine care and follow up unless otherwise noted in visit notes/problem list details OB Flowsheet Initial Weight: Not Recorded Date -?-?-?-?-?-?-?-?-?-?-?-?- EGA Weight BP Urine Prot -?-?-?-?-?-?-?-?-?-?-?-?- Glucose FHR FuHt Pres Dilation -?-?-?-?-?-?-?-?-?-?-?-?- Effaced St Visit Note 11/21/21 -?-?-?-?-?-?-?-?-?-?-?-?- 10w 4d 132 lb 4 oz 100/60 -?-?-?-?-?-?-?-?-?-?-?-?- 178 -?-?-?-?-?-?-?-?-?-?-?-?- JV- CRL consiste nt with LMP. 12/20/21 -?-?-?-?-?-?-?-?-?-?-?-?- 14w 5d 135 lb 8 oz 100/62 Nega tive -?-?-?-?-?-?-?-?-?-?-?-?- Negative 150 -?-?-?-?-?-?-?-?-?-?-?-?- SM- no vb lof cr amping 01/24/22 -?-?-?-?-?-?-?-?-?-?-?-?- 19w 5d 146 lb 117/74 Negative -?-?-?-?-?-?-?-?-?-?-?-?- Negative 147 -?-?-?-?-?-?-?-?-?-?-?-?- JFelix- pt had her a natomy scan and results are not in yet but she is upset about finding of echogenic bowel and dilated stomach. torch titers ordered. (CMV and TOxo) 02/21/22 -?-?-?-?-?-?-?-?-?-?-?-?- 23w 5d 150 lb 6 oz 109/72 -?-?-?-?-?-?-?-?-?-?-?-?- 135 -?-?-?-?-?-?-?-?-?-?-?-?- JV- echogenic fo ci's resolved but has a 2 vessel cord. will have growth follow ups every month. no mention of NSTs or testing at this time. h 03/21/22 -?-?-?-?-?-?-?-?-?-?-?-?- 27w 5d 158 lb 8 oz 94/56 Nega tive -?-?-?-?-?-?-?-?-?-?-?-?- Negative 142 26 -?-?-?-?-?-?-?-?-?-?-?-?- JV- pt has compl aint of vaginal prolpase and a spot of blood when wiping. She has a small rectocele present. pt reassured. has scan on 03/24 for follow up. JV- pt has complaint of vagi nal prolpase and a spot of blood when wiping. She has a small rectocele present. pt reassured. has scan on 03/24 for follow up. GCT is pending. TDAP next visit. 04/07/22 -?-?-?-?-?-?-?-?-?-?-?-?- 30w 1d 161 lb 6 oz 98/64 Nega tive -?-?-?-?-?-?-?-?-?-?-?-?- Negative 143 29 -?-?-?-?-?-?-?-?-?-?-?-?- MH-No VB, LOF. G ood FM. Has Growth US scheduled. 04/24/22 -?-?-?-?-?-?-?-?-?-?-?-?- 32w 4d 163 lb 8 oz 113/74 Nega tive -?-?-?-?-?-?-?-?-?-?-?-?- Negative 156 31.5 -?-?-?-?-?-?-?-?-?-?-?-?- LC-no vb/lof/vb. good fm. growth scan for thursday. 05/09/22 -?-?-?-?-?-?-?-?-?-?-?-?- 34w 5d 168 lb 6 oz 103/71 Nega tive -?-?-?-?-?-?-?-?-?-?-?-?- Negative 132 32 -?-?-?-?-?-?-?-?-?-?-?-?- JV- normal growt h on 05/02 at 47th% and normal BUSTER. rpt in 4 weeks. 05/23/22 -?-?-?-?-?-?-?-?-?-?-?-?- 36w 5d 169 lb 4 oz 126/74 Nega tive -?-?-?-?-?-?-?-?-?-?-?-?- Negative 130 -?-?-?-?-?-?-?-?-?-?-?-?- SM- no vb lof go od fm no regular ctx 05/30/22 -?-?-?-?-?-?-?-?-?-?-?-?- 37w 5d 171 lb 2 oz 112/64 Nega tive -?-?-?-?-?-?-?-?-?-?-?-?- Negative 140 120 -?-?-?-?-?-?-?-?-?-?-?-?- JV- NST reactive . No complaints today. no contractions. 06/06/22 -?-?-?-?-?-?-?-?-?-?-?-?- 38w 5d 171 lb 104/80 -?-?-?-?-?-?-?-?-?-?-?-?- 130 -?-?-?-?-?-?-?-?-?-?-?-?- SM- NST reactive , no vb lof good fm no regular ctx 06/13/22 -?-?-?-?-?-?-?-?-?-?-?-?- 39w 5d 172 lb 4 oz 109/73 Nega tive -?-?-?-?-?-?-?-?-?-?-?-?- Negative 130 -?-?-?-?-?-?-?-?-?-?-?-?- JV- reactive nst and declines induction and pelvic exam at this time. NST FHR Rate Baby A Baseline: 125, loss of pick remover Variability:: Moderate Accelerations:: 15 x 15 Decelerations:: Early FHR Category:: Category I Uterine Activity:: q1-2 minutes ROS Cardiovascular Cardiovascular: Denies abdominal pain, chest pain, diaphoresis or dyspnea Respiratory/Chest Respiratory/Chest: Denies change in mental status, chest congestion, chest tightness, cough, shortness of breath at rest, shortness of breath with exertion, breast mass, breast pain, breast skin changes, breast swelling, change in breast shape or nipple discharge Genitourinary Genitourinary: Reports change in urinary stream Musculoskeletal Musculoskeletal: Reports none Integumentary Integumentary: Reports none Neurologic Neurologic: Reports none Psychiatric Psychiatric: Reports none Endocrine Endocrinology: Reports none Hematologic/Lymphatic Hematologic/Lymphatic: Reports none Allergic/Immunologic Allergic/Immunologic: Reports none Vital Signs Vital Signs Vital Signs: Weight Weight: 172 lb 3.2 oz Body Mass Index (BMI) 28.6 Physical Exam Const alert, oriented x3 and no apparent distress General Appearance: cooperative, comfortable and well kempt Orientation / Consciousness: awake and oriented to person Exam Limitations: no limitations HEENT normocephalic Neck full ROM Chest inspection of chest normal Resp normal respiratory effort, normal air movement and no retractions Effort and Inspection: able to speak in complete sentences and symmetric chest movement Cardio regular rate Peripheral Pulses: pulses 2+ throughout GI normal to inspection, nondistended, normoactive bowel sounds Inspection: gravid no CVA tenderness and appearance of the vagina normal External Female Exam: normal appearance of the urethra; Negative for external lesion OB / External & Speculum: external exam normal Manual OB Exam: estimated gestational size appropriate and presentation cephalic Uterus Palpation: Negative for uterus tender Extremity normal to inspection Skin no rashes or lesions noted Neuro deep tendon reflexes 2+ bilaterally and gait normal Motor Exam: strength 5/5 throughout and clonus absent Psych Activity / Motor Behavior: appropriate eye contact Speech: normal speech Labs Labs Labs: Blood Type AB POSITIVE Antibody Screen NEGATIVE Hct 36.9 % (37-47) L Hgb 12.3 g/dL (12.0-15.0) Pap Smear Negative Syphilis Total Ab Non-reactive Rubella IgG Antibody Reactive (Nonreactive) Hep Bs Antigen Non-Reactive (Nonreactive) Chlamydia DNA (SINA) Negative (Negative) Neisseria gonorrhoeae DNA (SINA) Negative (Negative) HIV 1&2 Antibody Non-Reactive (Nonreactive) Glucose 1 Hr 50 gm 92 mg/dL (70-140) Assessment & Plan (1) Two vessel umbilical cord: COMMENT: monthly growth scans and weekly nsts at 36 weeks, 05/29 nl growth EFW 3167gms 51% (2) Spontaneous onset of labor: COMMENT: Patient presents IAL at term Pain management: hypnobirthing GBS negative. Management of any complications: 2 vessel cord I have reviewed the [facility] and made any clinically relevant updates. Dr. Mcconnell updated on POC, admission and exam. co-management for 2 vessel cord 06/17/22 0147 <Electronically signed by Trish Murray CNM> Cosigner Signature (if applicable): CC: LIMA Murray; No Primary Care Physician~ Signed [facility] Work Phone: 1(298) 941-987602-14-2023 Procedure [facility] 12-24-2021 Instructions* Patient Instructions* Tita Houser APRN.DROP WIRE OPERATOR - 12/24/2021 12:09 PM EDT Headache, unspecified headache type (primary encounter diagnosis) Viral illness You have been diagnosed with an illness caused by a virus. Antibiotics do not cure viral infections. If given when not needed, antibiotics can be harmful. The treatments described below will help youfeel better while your body's own defenses are [...] symptoms get better. No follow-ups on file. documented in this encounterOhio[facility]-23-2022 History of Present illness Narrative* Tita Houser APRN.CNP - 12/24/2021 12:02 PM EDT This note was created using [employer]rairie [employer]. Subjective Brigid Bella is a 36 year old female. 36 year old female, currently 15 weeks presents with complaints of illness. Acute onset of symptoms was this past . +nausea +headache +body aches +fatigue +chills Currently [address] Kent Has used Tylenol without much relief Denies vaginal bleeding. Denies vaginal discharge. The history is provided by the patient. No language instructor was used. Headache This is a new problem. The current episode started more than 2 days ago. The problem occurs constantly. The problem has not changed since onset.The headache is associated with nothing. Pain location:generalized. The quality of the pain is described as sharp and throbbing. The pain is at a severityof 5/10. The pain is moderate. The pain does not radiate. Associated symptoms include a fever, malaise/fatigue and nausea. Pertinent negatives include no anorexia, no chest pressure, no near-syncope,no orthopnea, no palpitations, no syncope, no shortness [...] - COVID WITH FLUA+B, ROUTINE-pending Use Tylenol. Tita Houser APRN.ALEXANDER documented in this encounterOhiohealth [facility]08-23-2021 History of Present illness Narrative* Kathy Rivera MD - 12/24/2020 10:06 AM EDT Brigid Bella is a 35 y.o. female who presents with Chief Complaint Skin Lesion; Skin Discoloration HPI Skin Lesion Additional comments: 1. Left cheek raised unchanged #2) abdomen red years unchanged Skin Discoloration Additional comments: Forehead, >1 year, started during , changing in color, untreated. Last edited by Kathy Rivera MD on 12/24/2020 10:06 AM. (History) [...] chief complaint and history documented by the ancillarystaff on 12/24/2020. Review of Systems Negative for: other skin complaints Assessment and Plan *Melasma - (chronic illness with exacerbation, progression, poorly controled or SE of tx [M]). Correlation to sun exposure explained. Treatment options and side effects reviewed. Sun protection including the use of a FDA approved broad- spectrum sunscreen with SPF 15 or higher was encouraged. Given a prescription for and she will wait until she is done breast-feeding to start Tri-Polly cream QD x 2-3 months. Side effects including teratogenicty dangers of penitentiary use explained;. 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 Defers removal. Pertinent PE: red papules abdomen *Intradermal Nevi Benign appearance explained. ABCDE's of melanoma reviewed. Return if changes. Sunprotection including the use of a FDA approved broad- spectrum sunscreen with SPF 15 or higher was encouraged. Pertinent PE: uniformly pigmented/skin colored papules left cheek Return in 1 year. Kathy Rivera MD 12/24/2020 documented in this [id number] Instructions* Patient Instructions* Rach Lopez MA - 12/24/2020 9:33 AM EDT Effective 05/18/2019, all [employer] users will be automatically enrolled in paperless billing in an effort to save our environment by eliminating waste & reduce healthcare costs. A monthly notification will be sent to your e-mail address on file indicating you have a new billing statement available in [employer]. If you prefer to receive paper statements, log into [employer] at ETHERA to update your e-mail, text and mail preferences (opting out of paperless billing). Please direct further questions to [employer] at [phone] or [email or web address] documented in [facility]Tr[facility]* Diagnosis Melasma- Primary Other dyschromia documented in this encounter [facility] note* Diagnosis Melasma- Primary Other dyschromia Dermal nevus of left cheek Osborne angioma documented in this encounter [facility]* Diagnosis Onset Date Resolution Status acute Supervision of normal [facility] Work Phone: Evaluation note* Diagnosis Headache, unspecified headache type- Primary Viral illness Unspecified viral infection, in conditions classified elsewhere and of unspecified site documented in this encounter [facility]* Diagnosis Onset Date Resolution Status acute Supervision of normal acute acute Supervision of normal acute Echogenic bowel of fetus acu te acute Supervision of normal [facility] Work Phone: Evaluation note* Diagnosis Onset Date Resolution Status Echogenic bowel of fetus res olved Echogenic bowel of fetus res olved Anemia affecting a cute Echogenic bowel of fetus res olved Anemia affecting a cute Echogenic bowel of fetus res olved Anemia affecting a cute Echogenic bowel of fetus res olved Anemia affecting a cute Echogenic bowel of fetus res olved Anemia affecting a cute Anemia affecting a cute Anemia affecting a cute [facility] Work Phone: Evaluation note* Diagnosis Melasma- Primary Other dyschromia Encounter to establish care Other reasons for seeking consultation Depression screening Screening for depression [facility] Diagnosis Conjunctivitis of right eye, unspecified conjunctivitis type- Primary URI, acute Acute upper respiratory infections of unspecified site [facility]ative[facility]No reason for referral information [facility] Work Phone: Summary Purpose Family History Relationship Condition Age at Onset Recorded Date/T yogesh mother Malignant neoplasm 68 Diabetes mellitus Unknown Hypertension Unknown High blood cholesterol Unknown father Family history of am yotrophic lateral sclerosis 67 grandmother Celiac disease Unknown Malignant neoplasm of colon Unknown grandmother Dementia Unknown grandfather High blood cholesterol Unknown Cardiac disease Unknown Myocardial infarction Unknown Advance Directives Documents on File Type Date Recorded 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 [facility] 01/10/20 11:23 [address] [place]. [address] PATIENT INFORMATION Name: BRIGID BELLA Address: [address] [place] [id number] Age: 34 Years Phone: [phone] : 1985 12:00 MRN: [id number] Sex: Female Race: White Ethnicity: Not Hispan/Lat Admitted From: Clinic or [facility] Medical Service: Obstetric Nurse Unit/Bed: ([place] [facility] 3L35-77 Admit Date: 01/08/2020 13:46 PCP: Physician, PCP Unknown PHYSICIANS INVOLVED WITH CARE Attending Physicians: Shantel Gurrola MD - Gynecology, Obstetrics Admitting Physician: Shantel Gurrola MD Gynecology, Obstetrics Primary Care Physician:Physician, PCP Unknown,Family Practice,,, - Consults: Praneeth MONAE, Zahida - Pediatrics Problems Active (more content not included)... Note Patient: BRIGID BELLA Lakia Roman RN: ([facility])-[id number] Age: 34 years Sex: Female : 1985 Associated Diagnoses: None Author: Shantel Gurrola MD Chief Complaint Status post Normal spontaneous vaginal [...] (more content not included)... Assessments Note Patient: SHAYNE BRIGID Roman RN: ([facility])-[id number] Age: 34 years Sex: Female : 1985 Associated Diagnoses: None Author: Shantel Gurrola MD Chief Complaint Status post Normal spontaneous vaginal [...] Begin date: 01/08 08:21 End date: 01/09 08: 24 Hour Intake: 0.00 Output: 0.00 Balance: 0.00 Last BM: No BM Charted. Exam Vital Signs/Measurements 48 hours : V (more content not included)... Reason for Referral Status Reason Specialty Diagnoses / Procedures Referred By Contact Referred To Contact Authorized Specialty Services Required/Patien t's Best Interest Dermatology Diagnoses Sabiha Lugo MD [address] [place] [id number] NicoleKathy MD [address] [place] [id number] Chief Complaint and Reason for Visit Chief Complaint NOB LMP 09/08/21 Reason for Visit Supervision of normal Chief Complaint NOB LMP 09/08/21 14 WK OB 19 WK OB E ORDER Reason for Visit Supervision of normal Supervision of normal Echogenic bowel of fetus Supervision of normal Chief Complaint 23wk ob one hour glusose 27 WK OB 30wk ob 32 WK OB 34 WK OB 36 WK OB/NST 37 WK OB/NST 38 WK OB/NST 39 WK OB/NST VAG VAG VAG Reason for Visit Echogenic bowel of f etus Echogenic bowel of fetus Anemia affecting Echogenic bowel of fetus Anemia affecting Echogenic bowel of fetus Anemia affecting Echogenic bowel of fetus Anemia affecting Echogenic bowel of fetus Anemia affecting Anemia affecting Anemia affecting Chief Complaint Admit Date New OB, LMP 03/03/24, JAZIMN 12/08/24 June 03, 2024 11:20am 17wk OB July 05, 2024 3:29 pm 21 wk ob August 03, 2024 8:21 am 26wk ob/glucose August 31, 2024 8:5 9am 30wk ob September 29, 2024 3:12p m Reason for Visit Admit Date Advanced maternal age (AMA) in June 03, 2024 11:20am FH: ALS (amyotrophic lateral sclerosis) June 03, 2024 11:20am Hyperlipidemia June 03, 2024 1 1:20am June 03, 2024 1 1:20am Supervision of normal June 03, 2024 11:20am Advanced maternal age (AMA) in July 05, 2024 3:29pm FH: ALS (amyotrophic lateral sclerosis) July 05, 2024 3:29pm Hyperlipidemia July 05, 2024 3:29 pm July 05, 2024 3:29 pm Supervision of normal July 3:29pm Advanced maternal age (AMA) in August 03, 2024 8:21am FH: ALS (amyotrophic lateral sclerosis) August 03, 2024 8:21am August 03, 2024 8:21 am Supervision of normal August 8:21am Advanced maternal age (AMA) in August 31, 2024 8:59am FH: ALS (amyotrophic lateral sclerosis) August 31, 2024 8:59am Hyperlipidemia August 31, 2024 8:5 9am August 31, 2024 8:5 9am Supervision of normal August 312024 8:59am Advanced maternal age (AMA) in September 29, 2024 3:12pm FH: ALS (amyotrophic lateral sclerosis) September 29, 2024 3:12pm Hyperlipidemia September 29, 2024 3:12p m September 29, 2024 3:12p m Supervision of normal September 3:12pm Chief Complaint Admit Date 17wk OB July 05, 2024 3:29 pm 21 wk ob August 03, 2024 8:21 am 26wk ob/glucose August 31, 2024 8:5 9am 30wk ob September 29, 2024 3:12p m 32wk ob October 12, 2024 8:49 am Reason for Visit Admit Date Advanced maternal age (AMA) in July 05, 2024 3:29pm FH: ALS (amyotrophic lateral sclerosis) July 05, 2024 3:29pm Hyperlipidemia July 05, 2024 3:29 pm July 05, 2024 3:29 pm Supervision of normal July 3:29pm Advanced maternal age (AMA) in August 03, 2024 8:21am FH: ALS (amyotrophic lateral sclerosis) August 03, 2024 8:21am August 03, 2024 8:21 am Supervision of normal August 8:21am Advanced maternal age (AMA) in August 31, 2024 8:59am FH: ALS (amyotrophic lateral sclerosis) August 31, 2024 8:59am Hyperlipidemia August 31, 2024 8:5 9am August 31, 2024 8:5 9am Supervision of normal August 312024 8:59am Advanced maternal age (AMA) in September 29, 2024 3:12pm FH: ALS (amyotrophic lateral sclerosis) September 29, 2024 3:12pm Hyperlipidemia September 29, 2024 3:12p m September 29, 2024 3:12p m Supervision of normal September 3:12pm Advanced maternal age (AMA) in October 12, 2024 8:49am FH: ALS (amyotrophic lateral sclerosis) October 12, 2024 8:49am Hyperlipidemia October 12, 2024 8:49 am October 12, 2024 8:49 am Supervision of normal October 8:49am Chief Complaint Admit Date 17wk OB July 05, 2024 3:29 pm 21 wk ob August 03, 2024 8:21 am 26wk ob/glucose August 31, 2024 8:5 9am 30wk ob September 29, 2024 3:12p m 32wk ob October 12, 2024 8:49 am 34 wk ob October 28, 2024 1:51 pm Reason for Visit Admit Date Advanced maternal age (AMA) in July 05, 2024 3:29pm FH: ALS (amyotrophic lateral sclerosis) July 05, 2024 3:29pm Hyperlipidemia July 05, 2024 3:29 pm July 05, 2024 3:29 pm Supervision of normal July 3:29pm Advanced maternal age (AMA) in August 03, 2024 8:21am FH: ALS (amyotrophic lateral sclerosis) August 03, 2024 8:21am August 03, 2024 8:21 am Supervision of normal August 8:21am Advanced maternal age (AMA) in August 31, 2024 8:59am FH: ALS (amyotrophic lateral sclerosis) August 31, 2024 8:59am Hyperlipidemia August 31, 2024 8:5 9am August 31, 2024 8:5 9am Supervision of normal August 312024 8:59am Advanced maternal age (AMA) in September 29, 2024 3:12pm FH: ALS (amyotrophic lateral sclerosis) September 29, 2024 3:12pm Hyperlipidemia September 29, 2024 3:12p m September 29, 2024 3:12p m Supervision of normal September 3:12pm Advanced maternal age (AMA) in October 12, 2024 8:49am FH: ALS (amyotrophic lateral sclerosis) October 12, 2024 8:49am Hyperlipidemia October 12, 2024 8:49 am October 12, 2024 8:49 am Supervision of normal October 8:49am Advanced maternal age (AMA) in October 28, 2024 1:51pm FH: ALS (amyotrophic lateral sclerosis) October 28, 2024 1:51pm Hyperlipidemia October 28, 2024 1:51 pm October 28, 2024 1:51 pm Supervision of normal October 1:51pm Chief Complaint Admit Date 21 wk ob August 03, 2024 8:21 am 26wk ob/glucose August 31, 2024 8:5 9am 30wk ob September 29, 2024 3:12p m 32wk ob October 12, 2024 8:49 am 34 wk ob October 28, 2024 1:51 pm ADVANCED MATERNAL AGE IN November 02, 2024 3:35pm Reason for Visit Admit Date Advanced maternal age (AMA) in August 03, 2024 8:21am FH: ALS (amyotrophic lateral sclerosis) August 03, 2024 8:21am August 03, 2024 8:21 am Supervision of normal August 8:21am Advanced maternal age (AMA) in August 31, 2024 8:59am FH: ALS (amyotrophic lateral sclerosis) August 31, 2024 8:59am Hyperlipidemia August 31, 2024 8:5 9am August 31, 2024 8:5 9am Supervision of normal August 312024 8:59am Advanced maternal age (AMA) in September 29, 2024 3:12pm FH: ALS (amyotrophic lateral sclerosis) September 29, 2024 3:12pm Hyperlipidemia September 29, 2024 3:12p m September 29, 2024 3:12p m Supervision of normal September 3:12pm Advanced maternal age (AMA) in October 12, 2024 8:49am FH: ALS (amyotrophic lateral sclerosis) October 12, 2024 8:49am Hyperlipidemia October 12, 2024 8:49 am October 12, 2024 8:49 am Supervision of normal October 8:49am Advanced maternal age (AMA) in October 28, 2024 1:51pm FH: ALS (amyotrophic lateral sclerosis) October 28, 2024 1:51pm Hyperlipidemia October 28, 2024 1:51 pm October 28, 2024 1:51 pm Supervision of normal October 1:51pm Chief Complaint Admit Date 21 wk ob August 03, 2024 8:21 am 26wk ob/glucose August 31, 2024 8:5 9am 30wk ob September 29, 2024 3:12p m 32wk ob October 12, 2024 8:49 am 34 wk ob October 28, 2024 1:51 pm ADVANCED MATERNAL AGE IN November 02, 2024 3:35pm 36 wk ob November 11, 2024 3:34 pm Reason for Visit Admit Date Advanced maternal age (AMA) in August 03, 2024 8:21am FH: ALS (amyotrophic lateral sclerosis) August 03, 2024 8:21am August 03, 2024 8:21 am Supervision of normal August 8:21am Advanced maternal age (AMA) in August 31, 2024 8:59am FH: ALS (amyotrophic lateral sclerosis) August 31, 2024 8:59am Hyperlipidemia August 31, 2024 8:5 9am August 31, 2024 8:5 9am Supervision of normal August 312024 8:59am Advanced maternal age (AMA) in September 29, 2024 3:12pm FH: ALS (amyotrophic lateral sclerosis) September 29, 2024 3:12pm Hyperlipidemia September 29, 2024 3:12p m September 29, 2024 3:12p m Supervision of normal September 3:12pm Advanced maternal age (AMA) in October 12, 2024 8:49am FH: ALS (amyotrophic lateral sclerosis) October 12, 2024 8:49am Hyperlipidemia October 12, 2024 8:49 am October 12, 2024 8:49 am Supervision of normal October 8:49am Advanced maternal age (AMA) in October 28, 2024 1:51pm FH: ALS (amyotrophic lateral sclerosis) October 28, 2024 1:51pm Hyperlipidemia October 28, 2024 1:51 pm October 28, 2024 1:51 pm Supervision of normal October 1:51pm Advanced maternal age (AMA) in November 11, 2024 3:34pm AMA (advanced maternal age) multigravida 35+ November 11, 2024 3:34pm FH: ALS (amyotrophic lateral sclerosis) November 11, 2024 3:34pm Hyperlipidemia November 11, 2024 3:34 pm November 11, 2024 3:34 pm Supervision of normal November 3:34pm Health Concerns Infection Onset Date Last Indicated Resolved Time COVID-19 Rule-Out 12/24/2021 12/24/2021 Additional Source Comments INFORMATION SOURCE (unrecogn ized section and content) DATE CREATED AUTHOR 01/10/2020 [facility] DATE CREATED AUTHOR NADINE ABURTO 10/27/2020 [facility] DATE CREATED AUTHOR AUTHOR'S ORGANIZ ATION 12/24/2020 [facility] DATE CREATED AUTHOR AUTHOR'S ORGANIZ ATION 08/23/2023 [facility] DATE CREATED AUTHOR AUTHOR'S ORGANIZ ATION 07/29/2024 [facility] DATE CREATED AUTHOR AUTHOR'S ORGANIZ ATION 11/10/2024 [facility] Reason for Visit (unrecogniz ed section and content) Reason Comments Skin Lesion 1. Left cheek raised unchanged #2) abdomen red years unchanged Skin Discoloration Forehead, >1 year, s tarted during , changing in color, untreated. Specialty Diagnoses / Procedures Referred By Contcory t Referred To Contact Dermatology Diagnoses Melasma Sabiha Cooper MD [address] [place] [address] NicoleKathy MD [address] [place] [id number] Referral ID Status Reason Start Date Expiration Date V isits Requested Visits Authorized [id number] Closed Specialty Services Required/Magalis ent's Best Interest 10/26/2020 10/26/2021 1 1 Reason Comments Headache nasal drip, chills, cough, x 5 days, increased x 3 days Reason Comments Establish Care Wellness visit paper work Reason Comments Results Reason Comments Eye Problem R eye redness swelli ng crust this am Care Teams (unrecognized sec tion and content) Warehouse Distribution Manager Relationship Specialty Start Date End Date Sabiha Cooper MD [address] [place] [address] PCP - General Internal Medicine 11/23/20 Warehouse Distribution Manager Relationship Specialty Start Date End Date Pcp, No PCP - General 11/16/21 06/03/22 Team Status: Active Member Role Status Dates No Primary Care Physician Primary Care Provider Active Team Status: Inactive Member Role Status Dates No Primary Care Physician Primary Care Provider, Refer ring Provider Active Dr. Sheyla Small , DO Attending Provider Activ e Team Status: Inactive Member Role Status Dates No Primary Care Physician Primary Care Provider, Refer ring Provider Active Micaela Peterson MAIL DISTRIBUTOR, MAIL DISTRIBUTOR-C Attending Provider Active Team Status: Inactive Member Role Status Dates No Primary Care Physician Primary Care Provider, Refer ring Provider Active Trish Murray CNM Attending Provider Active Team Status: Inactive Member Role Status Dates No Primary Care Physician Primary Care Provider, Refer ring Provider Active Dr. Linda Mcconnell MD Attending Provider Active Team Status: Active Member Role Status Dates No Primary Care Physician Primary Care Provider Active Trish Murray CNM Admit Provider, At tending Provider, Other Provider Active Team Status: Inactive Member Role Status Dates No Primary Care Physician Primary Care Provider Active Dr. Sheyla Small , Attending Provider, Refe rring Provider Active Team Status: Inactive Member Role Status Dates No Primary Care Physician Primary Care Provider Active Dr. Sheyla Small , Attending Provider, Refe rring Provider Active Dr. Linda Mcconnell MD Other Provider Active Team Status: Inactive Member Role Status Dates No Primary Care Physician Primary Care Provider Active Trish Murray CNM Admit Provider, Attending Provid er Active Warehouse Distribution Manager Relationship Specialty Start Date End Date Jairo Romero MD [address] [place] [address] PCP - General Family Medicine 12/26/22 Warehouse Distribution Manager Relationship Specialty Start Date End Date Jairo Romero MD [address] [place], [place] [id number] PCP - General Family Medicine 12/26/22 Warehouse Distribution Manager Relationship Specialty Start Date End Date Jairo Romero MD [address] [place], [place] [id number] PCP - General Family Medicine 12/26/22 Team Status: Active Member Role Status Dates Dr. Yousuf Ortiz MD Primary Care Provider Active Team Status: Inactive Member Role Status Dates Dr. Yousuf Ortiz MD Primary Care Provider Active Start: June 03, 2024 End: June 03, 2024 Dr. Yousuf Ortiz MD Referring Provider Active Start: June 03, 2024 End: June 03, 2024 Trish Murray CNM Attending Provider Active Start: June 03, 2024 End: June 03, 2024 Team Status: Inactive Member Role Status Dates Dr. Yousuf Ortiz MD Primary Care Provider Active Start: June 03, 2024 End: June 03, 2024 Trish Murray CNM Attending Provider Active Start: June 03, 2024 End: June 03, 2024 Trish Murray CNM Referring Provider Active Start: June 03, 2024 End: June 03, 2024 Team Status: Inactive Member Role Status Dates Dr. Yousuf Ortiz MD Primary Care Provider Active Start: July 05, 2024 End: July 05, 2024 Dr. Yousuf Ortiz MD Referring Provider Active Start: July 05, 2024 End: July 05, 2024 Dr. Sheyla Small DO Attending Provider Activ e Start: July 05, 2024 End: July 05, 2024 Team Status: Inactive Member Role Status Dates Dr. Yousuf Ortiz MD Primary Care Provider Active Start: August 03, 2024 End: August 03, 2024 Dr. Yousuf Ortiz MD Referring Provider Active Start: August 03, 2024 End: August 03, 2024 Micaela Peterson NP, MAIL DISTRIBUTOR-C Attending Provider Active Start: August 03, 2024 End: August 03, 2024 Team Status: Inactive Member Role Status Dates Dr. Yousuf Ortiz MD Primary Care Provider Active Start: August 31, 2024 End: August 31, 2024 Dr. Yousuf Ortiz MD Referring Provider Active Start: August 31, 2024 End: August 31, 2024 Dr. Linda Mcconnell MD Attending Provider Active Start: August 31, 2024 End: August 31, 2024 Team Status: Inactive Member Role Status Dates Dr. Yousuf Ortiz MD Primary Care Provider Active Start: August 31, 2024 End: August 31, 2024 Dr. Linda Mcconnell MD Attending Provider Active Start: August 31, 2024 End: August 31, 2024 Dr. Linda Mcconnell MD Referring Provider Active Start: August 31, 2024 End: August 31, 2024 Team Status: Inactive Member Role Status Dates Dr. Yousuf Ortiz MD Primary Care Provider Active Start: September 29, 2024 End: September 29, 2024 Dr. Yousuf Ortiz MD Referring Provider Active Start: September 29, 2024 End: September 29, 2024 Radha Valverde CNM Attending Provider Active S tart: September 29, 2024 End: September 29, 2024 Team Status: Inactive Member Role Status Dates Dr. Yousuf Ortiz MD Primary Care Provider Active Start: October 12, 2024 End: October 12, 2024 Dr. Yousuf Ortiz MD Referring Provider Active Start: October 12, 2024 End: October 12, 2024 Dr. Sheyla Small DO Attending Provider Activ e Start: October 12, 2024 End: October 12, 2024 Team Status: Active Member Role/Relationship Status Dates Dr. Yousuf Ortiz MD Primary Care Provider Active Team Status: Inactive Member Role/Relationship Status Dates Dr. Yousuf Ortiz MD Primary Care Provider Active Start: July 05, 2024 End: July 05, 2024 Dr. Yousuf Ortiz MD Referring Provider Active Start: July 05, 2024 End: July 05, 2024 Dr. Sheyla Small DO Attending Provider Activ e Start: July 05, 2024 End: July 05, 2024 Team Status: Inactive Member Role/Relationship Status Dates Dr. Yousuf Ortiz MD Primary Care Provider Active Start: August 03, 2024 End: August 03, 2024 Dr. Yousuf Ortiz MD Referring Provider Active Start: August 03, 2024 End: August 03, 2024 Micaela Peterson MAIL DISTRIBUTOR, MAIL DISTRIBUTOR-C Attending Provider Active Start: August 03, 2024 End: August 03, 2024 Team Status: Inactive Member Role/Relationship Status Dates Dr. Yousuf Ortiz MD Primary Care Provider Active Start: August 31, 2024 End: August 31, 2024 Dr. Yousuf Ortiz MD Referring Provider Active Start: August 31, 2024 End: August 31, 2024 Dr. Linda Mcconnell MD Attending Provider Active Start: August 31, 2024 End: August 31, 2024 Team Status: Inactive Member Role/Relationship Status Dates Dr. Yousuf Ortiz MD Primary Care Provider Active Start: August 31, 2024 End: August 31, 2024 Dr. Linda Mcconnell MD Attending Provider Active Start: August 31, 2024 End: August 31, 2024 Dr. Linda Mcconnell MD Referring Provider Active Start: August 31, 2024 End: August 31, 2024 Team Status: Inactive Member Role/Relationship Status Dates Dr. Yousuf Ortiz MD Primary Care Provider Active Start: September 29, 2024 End: September 29, 2024 Dr. Yousuf Ortiz MD Referring Provider Active Start: September 29, 2024 End: September 29, 2024 Radha Valverde CNM Attending Provider Active S tart: September 29, 2024 End: September 29, 2024 Team Status: Inactive Member Role/Relationship Status Dates Dr. Yousuf Ortiz MD Primary Care Provider Active Start: October 12, 2024 End: October 12, 2024 Dr. Yousuf Ortiz MD Referring Provider Active Start: October 12, 2024 End: October 12, 2024 Dr. Sheyla Small DO Attending Provider Activ e Start: October 12, 2024 End: October 12, 2024 Team Status: Inactive Member Role/Relationship Status Dates Dr. Yousuf Ortiz MD Primary Care Provider Active Start: October 28, 2024 End: October 28, 2024 Dr. Yousuf Ortiz MD Referring Provider Active Start: October 28, 2024 End: October 28, 2024 Dr. Sheyla Small DO Attending Provider Activ e Start: October 28, 2024 End: October 28, 2024 Team Status: Inactive Member Role/Relationship Status Dates Dr. Yousuf Ortiz MD Primary Care Provider Active Start: August 03, 2024 End: August 03, 2024 Dr. Yousuf Ortiz MD Referring Provider Active Start: August 03, 2024 End: August 03, 2024 Micaela Peterson NP, MAIL DISTRIBUTOR-C Attending Provider Active Start: August 03, 2024 End: August 03, 2024 Team Status: Inactive Member Role/Relationship Status Dates Dr. Yousuf Ortiz MD Primary Care Provider Active Start: August 31, 2024 End: August 31, 2024 Dr. Yousuf Ortiz MD Referring Provider Active Start: August 31, 2024 End: August 31, 2024 Dr. Linda Mcconnell MD Attending Provider Active Start: August 31, 2024 End: August 31, 2024 Team Status: Inactive Member Role/Relationship Status Dates Dr. Yousuf Ortiz MD Primary Care Provider Active Start: August 31, 2024 End: August 31, 2024 Dr. Linda Mcconnell MD Attending Provider Active Start: August 31, 2024 End: August 31, 2024 Dr. Linda Mcconnell MD Referring Provider Active Start: August 31, 2024 End: August 31, 2024 Team Status: Inactive Member Role/Relationship Status Dates Dr. Yousuf Ortiz MD Primary Care Provider Active Start: September 29, 2024 End: September 29, 2024 Dr. Yousuf Ortiz MD Referring Provider Active Start: September 29, 2024 End: September 29, 2024 Radha Valverde CNM Attending Provider Active S tart: September 29, 2024 End: September 29, 2024 Team Status: Inactive Member Role/Relationship Status Dates Dr. Yousuf Ortiz MD Primary Care Provider Active Start: October 12, 2024 End: October 12, 2024 Dr. Yousuf Ortiz MD Referring Provider Active Start: October 12, 2024 End: October 12, 2024 Dr. Sheyla Small DO Attending Provider Activ e Start: October 12, 2024 End: October 12, 2024 Team Status: Inactive Member Role/Relationship Status Dates Dr. Yousuf Ortiz MD Primary Care Provider Active Start: October 28, 2024 End: October 28, 2024 Dr. Yousuf Ortiz MD Referring Provider Active Start: October 28, 2024 End: October 28, 2024 Dr. Sheyla Small DO Attending Provider Activ e Start: October 28, 2024 End: October 28, 2024 Team Status: Inactive Member Role/Relationship Status Dates Dr. Yousuf Ortiz MD Primary Care Provider Active Start: November 02, 2024 End: November 02, 2024 Dr. Sheyla Small DO Attending Provider Activ e Start: November 02, 2024 End: November 02, 2024 Dr. Sheyla Small DO Referring Provider Activ e Start: November 02, 2024 End: November 02, 2024 Team Status: Inactive Member Role/Relationship Status Dates Dr. Yousuf Ortiz MD Primary Care Provider Active Start: November 11, 2024 End: November 11, 2024 Dr. Yousuf Ortiz MD Referring Provider Active Start: November 11, 2024 End: November 11, 2024 Radha Valverde CNM Attending Provider Active S tart: November 11, 2024 End: November 11, 2024 Goals (unrecognized section and content) Goals may be documented in a n alternate sectionGoals may be documented in an alternate sectionGoals may be documented in an alternate sectionGoals may be documented in an alternate sectionGoals may be documented in an alternate sectionGoals may be documented in an alternate sectionGoals may be documented in an alternate section Source Comments (unrecognize d section and content) In the event this informatio n is protected by the Federal Confidentiality of Alcohol and Drug Abuse Patient Records regulations: The Federal rules restrict any use of the information to criminally investigate or prosecute any alcohol or drug abuse patient.[facility] HospitalIn the event this information is protected by the Federal Confidentiality of Alcohol and Drug Abuse Patient Records regulations: The Federal rules restrict any use of the information to criminally investigate or prosecute any alcohol or drug abuse patient.[facility] HospitalIn the event this information is protected by the Federal Confidentiality of Alcohol and Drug Abuse Patient Records regulations: The Federal rules restrict any use of the information to criminally investigate or prosecute any alcohol or drug abuse patient.[facility] HospitalIn the event this information is protected by the Federal Confidentiality of Alcohol and Drug Abuse Patient Records regulations: The Federal rules restrict any use of the information to criminally investigate or prosecute any alcohol or drug abuse patient.[facility] FOR RECORDS PERTAINING TO PATIENTS WHO [...] BE BASED ON THE PRIMARY CLINICAL RECORDS. [facility] [employer] [facility]. provides no warranty or guarantee of the accuracy or completeness of information in this document.
== END | disposition home or self-care (01) ==
LOC: US 15:37
PROVIDERS: PCP Internal Medicine; Referring Provider Advanced Practice Midwife; Visit Provider Advanced Practice Midwife
DX: O28.8 Other abnormal findings on antenatal screening of mother (principal); Z3A.00 Weeks of gestation of pregnancy not specified
CPT/HCPCS: 76815

== ENCOUNTER → 2024-11-22 | Outpatient (CLI) | payer OTHER, SELFPAY ==
--- NOTE | 2024-11-22 16:24 | US_ITS ---
PROCEDURE: OB LIMITED (NO BIOMETRICS) 11/22/2024 REASON FOR EXAM: BUSTER CHECK. age by LMP 37 weeks 5 days. TECHNIQUE: OB LIMITED (NO BIOMETRICS). Transabdominal imaging of the maternal pelvis and a > 14 week gestation with image documentation. COMPARISON: 11/14/2024 FINDINGS FETUS: There is a single living intrauterine gestation. POSITION: position is cephalic. HEART RATE: The heart rate is 150 BPM and regular. ANATOMIC SURVEY: Detailed anatomy survey not performed. PLACENTA: The placenta is left lateral. No demonstrated evidence of previa or abruption. AMNIOTIC FLUID: Within normal limits. BUSTER measuring 9.7 cm. Deepest vertical pocket (DVP) measuring 4.1 cm. CERVIX: Not visualized. US/OB Limited (No Biometrics) IMPRESSION: 1. Single living intrauterine gestation. No abnormality seen. 2. Normal amniotic fluid index of 9.7 cm. Reading Location: [id number]
== END | disposition home or self-care (01) ==
LOC: US 16:23
PROVIDERS: PCP Internal Medicine; Referring Provider Obstetrics & Gynecology; Visit Provider Obstetrics & Gynecology
DX: O28.8 Other abnormal findings on antenatal screening of mother (principal); Z3A.00 Weeks of gestation of pregnancy not specified
CPT/HCPCS: 76815

== ENCOUNTER → 2024-12-01 | Outpatient (CLI) | payer OTHER, SELFPAY | END | disposition home or self-care (01) | LOC: US 16:15 | PROVIDERS: PCP Internal Medicine; Referring Provider Advanced Practice Midwife; Visit Provider Advanced Practice Midwife | DX: O09.523 Supervision of elderly multigravida, third trimester (principal); O28.8 Other abnormal findings on antenatal screening of mother; Z3A.39 39 weeks gestation of pregnancy | CPT/HCPCS: 76819 ==

== ENCOUNTER 2024-12-05 05:25 | Inpatient (IN) | payer OTHER, SELFPAY ==
[2024-12-05] VITALS (19 sets, daily range): BP systolic 91–114; BP diastolic 54–83; PULSE 59–75; RESP 14–17; TEMP 36.3–36.8; O2SAT 95–99; BMI 27.6
--- OUTSIDE RECORDS SUMMARY | 2024-12-05 05:33 | XMS RPT_ITS | CCD ---
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 Sheyla Small Attending Provider [phone] Pcp, No Primary Care Provider UnavailDr. Linda Chaudhry Attending Provider [phone] Care Physician, No Primary Primary Care Provider Unavailable Care Physician, No Primary Referring Provider Un available Care Physician, No Primary Primary Care Provider Unavailable Care Physician, No Primary Referring Provider Un available Dr. Sheyla Small Attending Provider [phone] Kristen COOL, ISHAN Hinojosa Attending Provider [phone] LIMA Murray Attending Provider [phone] Dr. Linda Mcconnell Attending Provider [phone] LIMA Murray Admit Provider [phone] LIMA Murray Other Provider [phone] Jairo Romero MD Primary Care Provider [...] Angel MONAE, Dr. Hernandez Referring Provider Trevor CNM, Trish Attending Provider [phone] Trevor CNM, Trish Referring Provider [phone] Dr. Sheyla Small DO Attending Provider Kristen DEPUTY JUVENILE OFFICER-C, Micaela Attending Provider [phone] Jayesh MONAE, Dr. Mckeon Attending Provider Jayesh MONAE, Dr. Mckeon Referring Provider [phone] Abram AMATO, Radha Attending Provider [phone] Angel MONAE, Dr. Hernandez Primary Care Provider 1( [phone] Angel MONAE, Dr. Hernandez Referring Provider Angel MONAE, Dr. Hernandez Primary Care Provider 1( [phone]) Angel MONAE, Dr. Hernandez Referring Provider Dr. Sheyla Small DO Attending Provider Santino Polk DO, Dr. Carrion Referring Provider Radha Valverde CNM Referring Provider [phone] Angel, Yousuf Primary Care Unavailable Trish Murray Attending Unavailable Trish Murray Referring Unavailable Angel, Yousuf Referring Unavailable Nineveh, Yousuf Primary Care Unavailable Sheyla Polk Attending Unavailabl e Radha Valverde Attending Unavailable Angel, Yousuf Referring Unavailable Nineveh, Yousuf Primary Care Unavailable Nineveh, Yousuf Primary Care Unavailable Trish Murray Attending Unavailable Nineveh, Yousuf Referring Unavailable Sheyla Polk Attending Unavailabl e Sheyla Polk Referring Unavailabl e Angel, Yousuf Primary Care Unavailable Radha Valverde Referring Unavailable Radha Valverde Attending Unavailable Nine[place], Yousuf Primary Care Unavailable Linda Mcconnell Attending Unavailable Linda Mcconnell Referring Unavailable Angel, Yousuf Primary Care Unavailable Nineveh, Yousuf Primary Care Unavailable Angel, Yousuf Attending Unavailable Nineveh, Yousuf Referring Unavailable Angel, Yousuf Primary Care Unavailable Nineveh, Yousuf Attending Unavailable Nineveh, Yousuf Referring Unavailable Radha Valverde Attending Unavailable Radha Valverde Referring Unavailable Nineveh, Yousuf Primary Care Unavailable Radha Valverde Attending Unavailable Nineveh, Yousuf Primary Care Unavailable Angel, Yousuf Attending Unavailable Care Physician, No Primary Primary Care Unava ilable Care Physician, No Primary Referring Unava ilable Radha Valverde Attending Unavailable Nineveh, Yousuf Referring Unavailable Angel, Yousuf Primary Care Unavailable Linda Mcconnell Attending Unavailable Nineveh, Yousuf Referring Unavailable Angel, Yousuf Primary Care Unavailable Micaela Peterson Attending Unavailable Angel, Yousuf Referring Unavailable Angel, Yousuf Primary Care Unavailable Sheyla Polk Attending Unavailabl e Angel, Yousuf Referring Unavailable Angel, Yousuf Primary Care Unavailable Linda Mcconnell Attending Unavailable Nineveh, Yousuf Primary Care Unavailable Angel, Yousuf Referring Unavailable Nineveh, Yousuf Referring Unavailable Nineveh, Yousuf Primary Care Unavailable Sheyla Polk Attending UnavailRadha Martinez Attending Unavailable Nineveh, Yousuf Referring Unavailable Nineveh, Yousuf Primary Care Unavailable Nineveh, Yousuf Referring Unavailable Nineveh, Yousuf Primary Care Unavailable Sheyla Polk Attending UnavailRadha Martinez Attending Unavailable Nineveh, Yousuf Referring Unavailable Angel, Yousuf Primary Care Unavailable Linda Mcconnell Attending Unavailable Linda Mcconnell Referring Unavailable Nineveh, Yousuf Primary Care Unavailable Medications Current Medications Medication Drug Class(es) Dates [...] 30 g 1 12/24/2020 01/23/2021 Active Multivit 91-Ysik-Cpjnwt 1-Dha (Pnv-Dha) 27 mg iron-1 mg -300 mg capsule (11 sources) Start: 05-20-2024 Multivit 73-Kocx-Knguwg 1-Dha (Pnv-Dha) 27 mg iron-1 mg -300 [...] cholesterol. 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 report from [facility] pendingtoxo and cmv ordered NIPT was negative, negative for CF carrier. TORCH negative Other complications of ; puerperium affecting management of mother (1 source) Maternal care for other (suspected) abnormality and damage, not applicable or unspecified; Translations: [Other known or suspected abnormality, not elsewhere classified, affecting management of mother, unspecified as to episode of care or not applicable] Episodic Other complications of (12 sources) Anemia of ; Translations: [Anemia complicating [...] by 41 weeks to reduce medical interventions. growth US 36 weeks d iscussed delivery by 39 weeks or increased testing if desired delivery by 40 weeks to reduce medical interventions. Other complications of (20 sources) Multigravida of advanced maternal age; Translations: [Supervision of elderly multigravida, unspecified trimester] 11-02-2024 Episodic Other complications of (19 sources) Abnormal amniotic fluid; Translations: [Other abnormal findings on screening of mother] 11-11-2024 Episodic Comment on above: repeat in one week repeat weekkly while under 10 reviewed fm precautions Other complications of (2 sources) Other abnormal findings on screening of mother; Translations: [Other abnormal findings on screening of mother] Onset: 12-01-2024 Episodic Other complications of (1 source) Supervision of elderly multigravida, unspecified trimester; Translations: [Supervision of elderly multigravida, unspecified trimester] Onset: 12-01-2024 Episodic Other and delivery including normal (20 sources) Normal ; Translations: [Encounter for supervision of normal , unspecified, unspecified trimester] Onset: 07-05-2024 Episodic Comment on above: [id number], JAZMIN 12/08/24, surprise CHRISTINA Lopez, Kevin, Terrance PRR , JAZMIN , PC John 3yo, Terrance IAL 40+2, boy:Wi michaelstacie, ALBERT elects NIPT WITHOUT Gender, Low risk; nl anatomy US GBS Negative, low ri sk NIPT, declined Carrier testing Neg GBS. elects NIPT WITHOUT Gender, Low risk; nl anatomy US Other skin disorders (3 sources) Chloasma; Translations: [Chloasma] Episodic Other upper respiratory infections (1 source) Acute upper respiratory infection; Translations: [Acute upper respiratory infection, unspecified] 08-23-2023 Episodic Residual codes; unclassified (20 sources) Family history of amyotrophic lateral sclerosis; Translations: [Family history of epilepsy and other diseases of the nervous system] 05-20-2024 Episodic Comment on above: Father- Residual codes; unclassified (1 source) 39 weeks gestation of ; Translations: [39 weeks gestation of ] Onset: 12-01-2024 Episodic Residual codes; unclassified (1 source) Family history of epilepsy and other diseases of the nervous system; Translations: [Family history of epilepsy and other diseases of the nervous system] Onset: 11-24-2024 Episodic Residual codes; unclassified (1 source) 38 weeks gestation of ; Translations: [38 weeks gestation of ] Onset: 11-24-2024 Episodic Residual codes; unclassified (1 source) 34 weeks gestation of ; Translations: [34 weeks gestation of ] Onset: 10-28-2024 Episodic Residual codes; unclassified (1 source) 30 weeks gestation of ; Translations: [30 weeks gestation of ] Onset: 09-29-2024 Episodic Thyroid disorders (1 source) Iodine-deficiency related [...] 03-20-2023 Episodic Residual codes; unclassified (1 source) 25 weeks gestation of ; Translations: [25 weeks gestation of ] Onset: 08-31-2024 Episodic Residual codes; unclassified (1 source) 17 weeks gestation of ; Translations: [17 weeks gestation of ] Onset: 07-05-2024 Episodic Unclassified (12 sources) Spontaneous onset of labor; Translations: [Spontaneous onset of labor] 06-18-2022 Comment on above: Patient presents IAL at termPain management: hypnobirthing GBS negative.Management of any complications: 2 vessel cordI have reviewed the [facility] and made any clinically relevant updates.Dr. Mcconnell updated on POC, admission and exam. co-management for 2 vessel cord Unclassified (7 sources) bowel echogenicity on obstetric ultrasound scan; Translations: [Echogenic bowel of fetus] 05-24-2022 Results Test Name Value Interpretation Reference Range Facility OB Biophysical Prof W/O NSTo n 12-01-2024 OB Biophysical Prof W/O NST [facility] Imaging Services [address] [place] [address] [id number] OB Biophysical Prof W/O NST MR#: [id number] Acct: [id number] Name: BRIGID BELLA Rep #: [id number] : 1985 F 39 From: Santo acosta MD PCP: Dr. Yousuf Ortiz MD Status: REG CLI Study: OB Biophysical Prof W/O NST Date of Exam: 11/03 05/28 Exam# [id number] Ordering Dr: Radha Valverde CNM PROCEDURE: OB BIOPHYSICAL PROF W/O NST 12/01/2024 REASON FOR EXAM: WELLBEING AND CHRIS CHECK TECHNIQUE: OB BIOPHYSICAL PROF W/O NST COMPARISON: None FINDINGS LMP: March 03, 2024. Number: 1 Position: Vertex Placental Position: Left lateral and not low-lying Placental Abnormalities: No evidence of previa. ESTIMATED GESTATIONAL AGE: Baseline: 39 weeks and 0 days ESTIMATED DATE OF DELIVERY: Baseline: December 08, 2024 BIOPHYSICAL ASSESSMENT: Amniotic Fluid Volume: : 2 Amniotic Fluid Index: 10.9 (8-24 cm normal range) Cardiac Motion: 133 (average) Trunk and Limb Motion: Present. MATERNAL ANATOMY: Adnexa: Neither maternal ovary is successfully identified. Biophysical profile: Breathing movements: 2 Gross body movements: 2 tone: 2 Amniotic fluid volume: 2 Total score: 8/8 US/OB Biophysical Prof W/O NST IMPRESSION: Normal biophysical profile. Reading Location: [id number] CC: LIMA Valverde; Dr. Yousuf Ortiz MD Pharmaceutical Specialty Representative: Signed Normal [facility] Sales Associate Fishing Office Visit Reporton 12-01-2024 Sales Associate Fishing Office Visit Report [facility]'s [address], [address] [place] [address] OFFICE VISIT Date of Service: 12/01/24 MR#: [id number] Acct: [id number] Name: BRIIGD BELLA Rep #: [id number] : 1985 Provider: LIMA Gusman ams Age/Sex: 39/F [place] [facility] [place]: Signed Intake Vital Signs 10/28/24 13:55 11/24/24 15:55 12/01/24 15:13 Height 5 ft 5 in 5 ft 5 in 5 ft 5 in Weight: 164 lb 8 oz BMI 27.3 BP 108/69 Intake Visit Reasons: 39 wk ob Chief Complaint: 39wk OB Distance Education Teacher Required: No Is patient in pain?: No Allergies No Known Allergies Allergy (Verified 12/01/24 15:11) Medications ???Medication ???Instructions ???Recorded ???Confirmed ???Type multivitamin no.47-iron fum 27 cap PO 05/20/24 12/01/24 History mg-folate no.1 1 mg-dha 300 mg capsule (PNV-DHA) Last Menstrual Period: 03/03/24 : No PFSH PFSH Medical History Spontaneous onset of labor (spontaneous vaginal delivery) Two vessel umbilical cord Supervision of normal Surgical History [place] teeth extracted No pertinent past surgical history [...] 2 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 current occupational exposures/hazards: No pets and animals: Yes (2) pets and animals: dog(s) history of recent travel: No ([facility] last , [place] October 23) sexually active: Yes Smoking Status: [...] 3-4 times per week duration: 15-30 minutes/day lexx/zoroastrianism: Holiness seatbelt use: always do you feel safe at home: Yes 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 Date Name GA/Weeks Outcome Route Bth Weight Gen Labor Lgth Anesthesia Del Locatn Provider FOB Unknown 01/08/20 John 40 live - full term 7# 10oz Male 12 hour s none [place] Dr. Ibeth Carlos 06/17/22 Kevin 40 live - full term 8lbs 1oz Male none [facility] Danuta Carlos Delivery Date: 06/17/22 Last Updated by: Diandra Truong see problem list for complications HPI 39 wk ob Details: BRIGID BELLA is a 39 year old who presents for routine OB visit. OB Visit JAZMIN Calculator Estimated Delivery Date Method Current WG Current Estimate 12/08/24 LMP (Certain) 39w 0d Expected Delivery Route/Plan Labor Preferences- CB/BF [...] -???-???-???-???-???-? ??-???-???-???-???-??? -???- Effaced St Visit Note 06/03/24 -???-???-???-???-? (more content not included)... Normal [facility] Laboratory - Chemistry and C hemistry - challengeOrdered By: Radha Valverde on 11-24-2024 Glucose Ql (U) Negative [facility] - UrinalysisOrder ed By: Radha Valverde on 11-24-2024 Protein Ql (U) Negative [facility] Sales Associate Fishing Office Visit Reporton 11-24-2024 Sales Associate Fishing Office Visit Report [facility]'s [address], [address] [place] [address] OFFICE VISIT Date of Service: 11/24/24 MR#: [id number] Acct: [id number] Name: BRIGID BELLA Rep #: [id number] : 1985 Provider: LIMA Gusman ams Age/Sex: 39/F [place] [facility] [place] Status: Signed Intake Vital Signs 10/28/24 13:55 11/16/24 13:49 11/24/24 15:55 Height 5 ft 5 in 5 ft 5 in 5 ft 5 in Weight: 167 lb 165 lb 8 oz BMI 27.8 27.5 BP 113/73 123/84 H Intake Visit Reasons: 38 wk ob Chief Complaint: 38wk OB Distance Education Teacher Required: No Is patient in pain?: No Allergies No Known Allergies Allergy (Verified 11/24/24 15:57) Medications ???Medication ???Instructions ???Recorded ???Confirmed ???Type multivitamin no.47-iron fum 27 cap PO 05/20/24 11/24/24 History mg-folate no.1 1 mg-dha 300 mg capsule (PNV-DHA) Last Menstrual Period: 03/03/24 : No PFSH PFSH Medical History Spontaneous onset of labor (spontaneous vaginal delivery) Two vessel umbilical cord Supervision of normal Surgical History [place] teeth extracted No pertinent past surgical history [...] 2 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 Date Name GA/Weeks Outcome Route Bth Weight Gen Labor Lgth Anesthesia Del Locatn Provider FOB Unknown 01/08/20 [place] 40 live - full term 7# 10oz Male 12 hour s none [place] Dr. Ibeth Carlos 06/17/22 [place] 40 live - full term 8lbs 1oz Male none [facility] roger Murray [facility] Terrance Delivery Date: 06/17/22 Last Updated by: Diandra Truong see problem list for complications HPI 38 wk ob Details: BRIGID BELLA is a 39 year old who presents for routine OB visit. OB Visit JAZMIN Calculator Estimated Delivery Date Method Current WG Current Estimate 12/08/24 LMP (Certain) 38w 0d Expected Delivery Route/Plan Labor Preferences- CB/BF [...] -???-???-???-???-???-? ??-???-???-???-???-??? -???- Effaced St Visit Note 06/03/24 (more content not included)... Normal [facility] OB Limited (No Biometrics)on 11-22-2024 OB Limited (No Biometrics) [facility] Imaging Services [address] [place], [place] [address] OB Limited (No Biometrics) MR#: [id number] Acct: [id number] Name: BRIGID BELLA Rep #: [id number] : 1985 F 39 From: Kim Iqbal MD PCP: Dr. Yousuf Ortiz MD Status: REG CLI Study: OB Limited (No Biometrics) Date of Exam: 11/22 Exam# [id number] Ordering Dr: Linda Mcconnell PROCEDURE: OB LIMITED (NO BIOMETRICS) 11/22/2024 REASON FOR EXAM: CHRIS CHECK. age by LMP 37 weeks 5 days. TECHNIQUE: OB LIMITED (NO BIOMETRICS). Transabdominal imaging of the maternal pelvis and a > 14 week gestation with image documentation. COMPARISON: 11/14/2024 FINDINGS FETUS: There is a single living intrauterine gestation. POSITION: position is cephalic. HEART RATE: The heart rate is 150 BPM and regular. ANATOMIC SURVEY: Detailed anatomy survey not performed. PLACENTA: The placenta is left lateral. No demonstrated evidence of previa or abruption. AMNIOTIC FLUID: Within normal limits. CHRIS measuring 9.7 cm. Deepest vertical pocket (DVP) measuring 4.1 cm. CERVIX: Not visualized. US/OB Limited (No Biometrics) IMPRESSION: 1. Single living intrauterine gestation. No abnormality seen. 2. Normal amniotic fluid index of 9.7 cm. Reading Location: [id number] CC: Dr. Yousuf Ortiz MD; Dr. Linda Mcconnell MD Pharmaceutical Specialty Representative: Signed Normal [facility] Laboratory - Chemistry and C hemistry - challengeOrdered By: Linda Mcconnell on 11-16-2024 Glucose Ql (U) Negative [facility] - UrinalysisOrder ed By: Linda Mcconnell on 11-16-2024 Protein Ql (U) Negative [facility] Sales Associate Fishing Office Visit Reporton 11-16-2024 Sales Associate Fishing Office Visit Report [facility]'s [address], [address] [place] [address] OFFICE VISIT Date of Service: 11/16/24 MR#: [id number] Acct: [id number] Name: BRIGID BELLA Rep #: [id number] : 1985 Provider: Dr. Linda hagan MD Age/Sex: 39/F [place] [facility] [place]: Signed Intake Vital Signs 09/29/24 15:15 11/11/24 15:41 11/16/24 13:49 Height 5 ft 5 in 5 ft 5 in 5 ft 5 in Weight: 167 lb BMI 27.8 BP 113/73 Intake Visit Reasons: 37 wk ob Chief Complaint: 37 Week OB Distance Education Teacher Required: No Is patient in pain?: No Allergies No Known Allergies Allergy (Verified 11/16/24 13:50) Medications ???Medication ???Instructions ???Recorded ???Confirmed ???Type multivitamin no.47-iron fum 27 cap PO 05/20/24 11/16/24 History mg-folate no.1 1 mg-dha 300 mg capsule (PNV-DHA) Last Menstrual Period: 03/03/24 Zika: Zika virus screening: Negative : No PFSH PFSH Medical History Spontaneous onset of labor (spontaneous vaginal delivery) Two vessel umbilical cord Supervision of normal Surgical History [place] teeth extracted No pertinent past surgical history [...] 2 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 Date Name GA/Weeks Outcome Route Bth Weight Gen Labor Lgth Anesthesia Del Locatn Provider FOB Unknown 01/08/20 [place] 40 live - full term 7# 10oz Male 12 hour s none [place] Dr. Ibeth Carlos 06/17/22 [place] 40 live - full term 8lbs 1oz Male none [facility] roger Murray CN Terrance Delivery Date: 06/17/22 Last Updated by: Diandra Truong see problem list for complications HPI 37 wk ob Details: BRIGID BELLA is a 39 year old who presents for routine OB visit. OB Visit JAZMIN Calculator Estimated Delivery Date Method Current WG Current Estimate 12/08/24 LMP (Certain) 36w 6d Expected Delivery Route/Plan Labor Preferences- CB/BF [...] Glucose FHR FuHt Pres Dilation -???-???-???-???-???-? ??-???-???-???-???-??? (more content not included)... Normal [facility] OB Limited (No Biometrics)on 11-14-2024 OB Limited (No Biometrics) [facility] Imaging Services [address] [place] [address] OB Limited (No Biometrics) MR#: [id number] Acct: [id number] Name: BRIGID BELLA Rep #: [id number] : 1985 F 39 From: Santo acosta MD PCP: Dr. Yousuf Ortiz MD Status: REG CLI Study: OB Limited (No Biometrics) Date of Exam: 11/14 Exam# [id number] Ordering Dr: Radha Valverde CNM PROCEDURE: OB LIMITED (NO BIOMETRICS) 11/14/2024 REASON FOR EXAM: CHRIS TECHNIQUE: OB LIMITED (NO BIOMETRICS) COMPARISON: Prior study dated November 02, 2024. FINDINGS Number: 1 Position: Vertex Placental Position: Left lateral and not low-lying. Placental Abnormalities: No evidence of previa. ESTIMATED GESTATIONAL AGE: Baseline: 36 weeks and 4 days ESTIMATED DATE OF DELIVERY: Baseline: December 08, 2024. BIOPHYSICAL ASSESSMENT: Amniotic Fluid Volume: 2.6 cm Amniotic Fluid Index: 8.2 (8-24 cm normal range) Cardiac Motion: (average) Trunk and Limb Motion: Present. MATERNAL ANATOMY: Adnexa: Neither maternal ovary is successfully identified. US/OB Limited (No Biometrics) IMPRESSION: Amniotic fluid index is lower limits of normal. Reading Location: [id number] CC: LIMA Valverde; Dr. Yousuf Ortiz MD Pharmaceutical Specialty Representative: Signed Normal [facility] Rule out Beta Strep (Grp. B) on 11-14-2024 BECKA Group B Beta Streptococcus is not isolated. Normal [facility] Comment on above: Performed By: #### M [id number] ####[facility] [id number] [facility] [place], [place], [address] Laboratory - Chemistry and C hemistry - challengeOrdered By: Radha Valverde on 11-11-2024 Glucose Ql (U) Negative [facility] Laboratory - UrinalysisOrder ed By: Radha Valverde on 11-11-2024 Protein Ql (U) Negative [facility] Sales Associate Fishing Office Visit Reporton 11-11-2024 Sales Associate Fishing Office Visit Report [facility]'s [address], [address] [place] [address] OFFICE VISIT Date of Service: 11/11/24 MR#: [id number] Acct: [id number] Name: BRIGID BELLA CHRISTIANA Rep #: [id number] : 1985 Provider: LIMA Gusman ams Age/Sex: 39/F Location[place] [facility] [place]: Signed Intake Vital Signs 09/29/24 15:15 10/28/24 13:55 11/11/24 15:41 Height 5 ft 5 in 5 ft 5 in 5 ft 5 in Weight: 165 lb 2 oz BMI 27.4 BP 120/78 Intake Visit Reasons: 36 wk ob Distance Education Teacher Required: No Is patient in pain?: No Allergies No Known Allergies Allergy (Verified 11/16/24 13:50) Medications ???Medication ???Instructions ???Recorded ???Confirmed ???Type multivitamin no.47-iron fum 27 cap PO 05/20/24 11/16/24 History mg-folate no.1 1 mg-dha 300 mg capsule (PNV-DHA) Last Menstrual Period: 03/03/24 Zika: Zika virus screening: Negative : No Have you fallen in the past year?: No PFSH PFSH Medical History Spontaneous onset of labor (spontaneous vaginal delivery) Two vessel umbilical cord Supervision of normal Surgical History [place] teeth extracted No pertinent past surgical history [...] 2 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 Date Name GA/Weeks Outcome Route Bth Weight Infant Gen Labor Lgth Anesthesia Del Locatn Provider FOB Unknown 01/08/20 [place] 40 live - full term 7# 10oz Male 12 hour s none [place] Dr. Ibeth Carlos 06/17/22 Kevin 40 live - full term 8lbs 1oz Male none [facility] roger Murray [facility] Terrance Delivery Date: 06/17/22 Last Updated by: Diandra Truong see problem list for complications HPI 36 wk ob Details: BIRGID BELLA is a 39 year old who presents for routine OB visit. OB Visit JAZMIN Calculator Estimated Delivery Date Method Current WG Current Estimate 12/08/24 LMP (Certain) 37w 4d Expected Delivery Route/Plan Labor Preferences- CB/BF classes: [...] -???- Glucose FHR FuHt Pres Dilation -???-???-???-???-???-? ??-???-???-???- (more content not included)... Normal [facility] Screening beta-hemolytic Str eptococcus cultureOrdered By: Radha Valverde on 11-11-2024 Beta-hemolytic Streptococcus culture Group B Beta Streptococcus is not isolated. [facility] OB Limited With Biometricson 11-02-2024 OB Limited With Biometrics [facility] Services [address] [place], [place] [address] OB Limited With Biometrics MR#: [id number] Acct: [id number] Name: BRIGID BELLA Rep #: [id number] : 1985 F 39 From: Dimitri Hanson DO PCP: Dr. Yousuf Ortiz MD Status: REG CLI Study: OB Limited With Biometrics Date of Exam: 11/02 Exam# [id number] Ordering Dr: Sheyla Small DO PROCEDURE: OB [...] due date December 19, 2024 [facility] CC: Dr. Yousuf Ortiz MD; Dr. Sheyla Small DO Pharmaceutical Specialty Representative: Signed Normal [facility] Laboratory - Chemistry and C hemistry - challengeOrdered By: Sheyla Polk on 10-28-2024 Glucose Ql (U) Negative [facility] Laboratory - UrinalysisOrder ed By: Sheyla Polk on 10-28-2024 Protein Ql (U) Negative [facility] Sales Associate Fishing Office Visit Reporton 10-28-2024 Sales Associate Fishing Office Visit Report [facility]'s [address], [address] [place] [address] OFFICE VISIT Date of Service: 10/28/24 MR#: [id number] Acct: [id number] Name: BRIGID BELLA Rep #: [id number] : 1985 Provider: Dr. 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 Date Name GA/Weeks Outcome Route Bth Weight Gen Labor Lgth Anesthesia Del Locatn Provider FOB Unknown 01/08/20 [place] 40 live - full term 7# 10oz Male 12 hour s none [place] Dr. Ibeth Carlos 06/17/22 [place] 40 live - full term 8lbs 1oz Male none [facility] Danuta Carlos Delivery Date: 06/17/22 Last Updated by: Diandra [...] St Vi (more content not included)... Normal [facility] Laboratory - Chemistry and C hemistry - challengeOrdered By: Sheyla Polk on 10-12-2024 Glucose Ql (U) Negative [facility] Laboratory - UrinalysisOrder ed By: Sheyla Polk on 10-12-2024 Protein Ql (U) Negative [facility] Sales Associate Fishing Office Visit Reporton 10-12-2024 Sales Associate Fishing Office Visit Report [facility]'s [address], [address] [place] [address] OFFICE VISIT Date of Service: 10/12/24 MR#: [id number] Acct: [id number] Name: BRIGID BELLA Rep #: [id number] : 1985 Provider: Dr. 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 Date Name GA/Weeks Outcome Route Bth Weight Gen Labor Lgth Anesthesia Del Locatn Provider FOB Unknown 01/08/20 [place] 40 live - full term 7# 10oz Male 12 hour s none [place] Dr. Ibeth Carlos 06/17/22 [place] 40 live - full term 8lbs 1oz Male none [facility] roger [facility] Terrance Delivery Date: 06/17/22 Last Updated by: [...] St Visi (more content not included)... Normal [facility] Laboratory - Chemistry and C hemistry - challengeOrdered By: Radha Valverde on 09-29-2024 Glucose Ql (U) Negative [facility] Laboratory - UrinalysisOrder ed By: Radha Valverde on 09-29-2024 Protein Ql (U) Negative [facility] Sales Associate Fishing Office Visit Reporton 09-29-2024 Sales Associate Fishing Office Visit Report [facility] [address], [address] [place] [address] OFFICE VISIT Date of Service: 09/29/24 MR#: [id number] Acct: [id number] Name: BRIGID BELLA Rep #: [id number] : 1985 Provider: LIMA Gusman ams Age/Sex: 39/F Location[place] [facility] [place]: Signed Intake Vital Signs 08/03/24 08:30 08/03/24 08:46 08/31/24 09:09 09/29/24 15:15 Height 5 ft 5 in 5 ft 5 in 5 ft 5 in 5 ft 5 in Weight: 164 lb 2 oz BMI 27.3 BP 107/74 Intake Visit Reasons: 30wk ob Chief Complaint: 30wk OB Distance Education Teacher Required: No Is patient in pain?: No [...] umbilical cord Supervision of normal Surgical History [place] teeth extracted No pertinent past surgical history [...] 2 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 Date Name GA/Weeks Outcome Route Bth Weight Gen Labor Lgth Anesthesia Del Locatn Provider FOB Unknown 01/08/20 [place] 40 live - full term 7# 10oz Male 12 hour s none [place] Dr. Ibeth Carlos 06/17/22 Kevin 40 live - full term 8lbs 1oz Male none [facility] roger Murray [facility] Terrance Delivery Date: 06/17/22 [...] ??-???-???-???-???-??? -??? (more content not included)... Normal [facility] Absolute lymphocyte countOrd ered By: Micaela Peterson on 08-31-2024 Lymphocytes Auto (Unsp spec) [#/Vol] 2.06 10*3/uL 0.83-4.51 [facility] Absolute neutrophil countOrd ered By: Micaela Peterson on 08-31-2024 Neutrophils (Bld) [#/Vol] 7.9 10*3/uL High 2.0-7.7 [facility] Automated lymphocyte count a s percentage of total leukocytesOrdered By: Micaela Peterson on 08-31-2024 Lymphocytes/100 WBC Auto (Unsp spec) 18.9 % Low 19-41 [facility] Basophil percentageOrdered B y: Micaela Peterson on 08-31-2024 Basophils/100 WBC (Bld) 0.4 % 0-1 [facility] CBC W/Diff, Automatedon 08-04-2024 Absolute Lymph 2.06 X10 3/uL Normal 0.83-4.51 [facility] Comment on above: Performed By: #### L 100.0100, L509.8002, L501.0250, L3890.6006 ####[facility] [address] [place], [address] Absolute Neut 7.9 X10 3/uL High 2.0-7.7 [facility] Comment on above: Performed By: #### L 100.0100, L509.8002, L501.0250, L3890.6006 ####[facility] [address] [place], [address] Basophils/100 WBC (Bld) 0.4 % Normal 0-1 [facility] Comment on above: Performed By: #### L 100.0100, L509.8002, L501.0250, L3890.6006 ####[facility] [address] [place], [address] Eosinophils/100 WBC (Bld) 1.0 % Normal 0-5 [facility] Comment on above: Performed By: #### L 100.0100, L509.8002, L501.0250, L3890.6006 ####[facility] [address] [place], [address] Erythrocyte distribution width (RBC) [Ratio] 12.5 % Normal 11.6-14.6 [facility] Comment on above: Performed By: #### L 100.0100, L509.8002, L501.0250, L3890.6006 ####[facility] [address] [place], [address] Hematocrit (Bld) [Volume fraction] 35.2 % Low 37-47 [facility] Comment on above: Performed By: #### L 100.0100, L509.8002, L501.0250, L3890.6006 ####[facility] [address] [place], [address] Hemoglobin (Bld) [Mass/Vol] 11.5 g/dL Low 12.0-15.0 [facility] Comment on above: Performed By: #### L 100.0100, L509.8002, L501.0250, L3890.6006 ####[facility] [address] [place], [address] IG% 0.600 Normal 0.0-0.9 [facility] Comment on above: Result Comment: IG% - Immature Granulocytes (promyelocytes, myelocytes and metamyelocytes) > 1% indicates that a LEFT SHIFT is Present. Performed By: #### L 100.0100, L509.8002, L501.0250, L3890.6006 ####[facility] [address] [place], [address] Lymphocytes/100 WBC (Bld) 18.9 % Low 19-41 [facility] Comment on above: Performed By: #### L 100.0100, L509.8002, L501.0250, L3890.6006 ####[facility] [address] [place], [address] MCH (RBC) [Entitic mass] 30.3 pg Normal 27.0-32.0 [facility] Comment on above: Performed By: #### L 100.0100, L509.8002, L501.0250, L3890.6006 ####[facility] [address] [place], [address] MCHC (RBC) [Mass/Vol] 32.7 g/dL Normal 32-36 [facility] Comment on above: Performed By: #### L 100.0100, L509.8002, L501.0250, L3890.6006 ####[facility] [address] [place], [address] MCV (RBC) [Entitic vol] 92.9 fL Normal 81-99 [facility] Comment on above: Performed By: #### L 100.0100, L509.8002, L501.0250, L3890.6006 ####[facility] [address] [place], [address] Monocytes/100 WBC (Bld) 6.7 % Normal 0-10 [facility] Comment on above: Performed By: #### L 100.0100, L509.8002, L501.0250, L3890.6006 ####[facility] [address] [place], [address] Neutrophils/100 WBC (Bld) 72.4 % High 47-70 [facility] Comment on above: Performed By: #### L 100.0100, L509.8002, L501.0250, L3890.6006 ####[facility] [address] [place], [address] Nucleated RBC (Bld) [#/Vol] 0 10*3/uL Normal 0-5 [facility] Comment on above: Performed By: #### L 100.0100, L509.8002, L501.0250, L3890.6006 ####[facility] [address] [place], [address] Platelet mean volume (Bld) [Entitic vol] 12.0 fL Normal 6.2-12.0 [facility] Comment on above: Performed By: #### L 100.0100, L509.8002, L501.0250, L3890.6006 ####[facility] [address] [place], [address] Platelets (Bld) [#/Vol] 260 10*3/uL Normal 150-450 [facility] Comment on above: Performed By: #### L 100.0100, L509.8002, L501.0250, L3890.6006 ####[facility] [address] [place], [address] RBC (Bld) [#/Vol] 3.79 10*6/uL Low 4.2-5.4 [facility] Comment on above: Performed By: #### L 100.0100, L509.8002, L501.0250, L3890.6006 ####[facility] [address] [place], [address] RDW SD 42.7 fl Normal 35.1-43.9 [facility] Comment on above: Performed By: #### L 100.0100, L509.8002, L501.0250, L3890.6006 ####[facility] [address] [place], [address] WBC (Bld) [#/Vol] 10.9 10*3/uL Normal 4.4-11.0 [facility] Comment on above: Performed By: #### L 100.0100, L509.8002, L501.0250, L3890.6006 ####[facility] [address] [place], [place], [address] Eosinophil percentageOrdered By: Micaela Peterson on 08-31-2024 Eosinophils/100 WBC (Bld) 1.0 % 0-5 [facility] Erythrocyte distribution wid th ratioOrdered By: Micaela Kristen on 08-31-2024 Erythrocyte distribution width (RBC) [Ratio] 12.5 % 11.6-14.6 [facility] Erythrocyte distribution wid th standard deviationOrdered By: Micaela Kristen on 08-31-2024 Erythrocyte distribution width (RBC) [Ratio] 42.7 fl 35.1-43.9 [facility] Glucose Challenge Gest 1H 50 irma 08-31-2024 GLU GEST 50g 1H 84 mg/dL Normal 70-140 [facility] Comment on above: Performed By: #### L 100.0100, L509.8002, L501.0250, L3890.6006 ####[facility] [address] [place], [place], [address] Glucose measurement at 2 dillon rs post-dose gestational glucose tolerance testOrdered By: Micaela Peterson on 08-31-2024 Glucose [Mass/Vol] 84 mg/dL 70-140 [facility] HIVon 08-31-2024 HIV Non-Reactive Normal Nonreactive [facility] Comment on above: Result Comment: Non- Reactive Reactive Repeatedly reactive samples must be confirmed according to CDC recommended confirmatory algorithms. The subresults for either HIVAG or AHIV can be used as an aid in the selection of the confirmation algorithm for reactive samples. Send out specimens with Reactive results to [facility] for confirmation. Order the HIV antibody detection and differentiation: lc#[id number] Performed By: #### L 100.0100, L509.8002, L501.0250, L3890.6006 ####[facility] [address] [place], [address] Hematocrit Auto (Bld) [Volum e fraction]Ordered By: Micaela Peterson on 08-31-2024 Hematocrit (Bld) [Volume fraction] 35.2 % Low 37-47 [facility] Hemoglobin measurementOrdere d By: Micaela Peterson on 08-31-2024 Hemoglobin (Bld) [Mass/Vol] 11.5 g/dL Low 12.0-15.0 [facility] Immature granulocytes/100 WB C Auto (Bld)Ordered By: Micaela Peterson on 08-31-2024 Immature granulocytes/100 WBC (Bld) 0.600 % 0.0-0.9 [facility] Comment on above: IG% - Immature Granu locytes (promyelocytes, myelocytes and metamyelocytes) > 1% indicates that a LEFT SHIFT is Present. Laboratory - Chemistry and C hemistry - challengeOrdered By: Linda Mcconnell on 08-31-2024 Glucose Ql (U) Negative [facility] Laboratory - UrinalysisOrder ed By: Linda Mcconnell on 08-31-2024 Protein Ql (U) Negative [facility] MCV (mean corpuscular volume ) determinationOrdered By: Micaela Peterson on 08-31-2024 MCV (RBC) [Entitic vol] 92.9 fL 81-99 [facility] Mean corpuscular hemoglobin (MCH) determinationOrdered By: Micaela Peterson on 08-31-2024 MCH (RBC) [Entitic mass] 30.3 pg 27.0-32.0 [facility] Mean corpuscular hemoglobin concentration (MCHC) determinationOrdered By: Micaela Peterson on 08-31-2024 MCHC (RBC) [Mass/Vol] 32.7 g/dL 32-36 [facility] Mean platelet volume determi nationOrdered By: Micaela Peterson on 08-31-2024 Platelet mean volume (Bld) [Entitic vol] 12.0 fL 6.2-12.0 [facility] Monocyte percentageOrdered B y: Micaela Peterson on 08-31-2024 Monocytes/100 WBC (Bld) 6.7 % 0-10 [facility] Neutrophil percentageOrdered By: Micaela Peterson on 08-31-2024 Neutrophils/100 WBC (Bld) 72.4 % High 47-70 [facility] No Panel InformationOrdered By: Micaela Peterson on 08-31-2024 HIV (1&2) Antibody Non-Reactive Nonreactive [facility] Comment on above: Non-ReactiveReactive Repeatedly reactive samples must be confirmed according to CDC recommended confirmatory algorithms. The subresults for either HIVAG or AHIV can be used as an aid in the selection of the confirmation algorithm for reactive samples.Send out specimens with Reactive results to [facility] for confirmation.Order the HIV antibody detection and differentiation: #[id number] Nucleated red blood cell per centageOrdered By: Micaela Peterson on 08-31-2024 Nucleated RBC/100 WBC (Bld) [Ratio] 0 % 0-5 [facility] Sales Associate Fishing Office Visit Reporton 08-31-2024 Sales Associate Fishing Office Visit Report [facility] [address], [address] [place] [address] OFFICE VISIT Date of Service: 08/31/24 MR#: [id number] Acct: [id number] Name: BRIGID BELLA Rep #: [id number] : 1985 Provider: Dr. 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 Date Name GA/Weeks Outcome Route Bth Weight Infant Gen Labor Lgth Anesthesia Del Locatn Provider FOB Unknown 01/08/20 [place] 40 live - full term 7# 10oz Male 12 hour s none [place] Dr. Ibeth Carlos 06/17/22 [place] 40 live - full term 8lbs 1oz Male none [facility] Danuta LEE Terrance Delivery Date: 06/17/22 Last Updated [...] -???-???-???-???-???-? ??-???-?? (more content not included)... Normal [facility] Platelet countOrdered By: Cas Peterson on 08-31-2024 Platelets (Bld) [#/Vol] 260 10*3/uL 150-450 [facility] RBC Auto (Bld) [#/Vol]Ordere d By: Micaela Peterson on 08-31-2024 RBC (Bld) [#/Vol] 3.79 10*6/uL Low 4.2-5.4 [facility] Syphilis Antibodieson 2024 Syphilis Abs Non-Reactive Normal Nonreactive [facility] Comment on above: Performed By: #### L 100.0100, L509.8002, L501.0250, L3890.6006 ####[facility] [address] [place], [address] White blood cell (WBC) count Ordered By: Micaela Peterson on 08-31-2024 WBC (Bld) [#/Vol] 10.9 10*3/uL 4.4-11.0 [facility] Laboratory - Chemistry and C hemistry - challengeOrdered By: Micaela Peterson on 08-03-2024 Glucose Ql (U) Negative [facility] Laboratory - UrinalysisOrder ed By: Micaela Peterson on 08-03-2024 Protein Ql (U) Negative [facility] Sales Associate Fishing Office Visit Reporton 08-03-2024 Sales Associate Fishing Office Visit Report [facility] [address], [address] [place] [address] OFFICE VISIT Date of Service: 08/03/24 MR#: [id number] Acct: [id number] Name: BRIGID BELLA Rep #: [id number] : 1985 Provider: ISHAN mcdonald Age/Sex: 39/F [place] [facility] [place]: Signed Intake Vital Signs 06/03/24 11:26 07/05/24 15:41 08/03/24 08:30 Height 5 ft 5 in 5 ft 5 in 5 ft 5 in Weight: 152 lb BMI 25.2 BP 102/64 Intake Visit Reasons: 21 wk ob Chief Complaint: 21 Week OB Distance Education Teacher Required: No Is patient in pain?: No [...] umbilical cord Supervision of normal Surgical History [place] teeth extracted No pertinent past surgical history [...] 2 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 Date Name GA/Weeks Outcome Route Bth Weight Infant Gen Labor Lgth Anesthesia Del Locatn Provider FOB Unknown 01/08/20 [place] 40 live - full term 7# 10oz Male 12 hour s none [place] [place] Dr. Ibeth Carlos 06/17/22 [place] 40 live - full term 8lbs 1oz Male none [facility]ger [facility] Terrance Delivery Date: 06/17/22 Last Updated by: [...] Note 0 (more content not included)... Normal [facility] Laboratory - Chemistry and C hemistry - challengeOrdered By: Sheyla Polk on 07-05-2024 Glucose Ql (U) Negative [facility] Laboratory - UrinalysisOrder ed By: Sheyla Polk on 07-05-2024 Protein Ql (U) Negative [facility] Sales Associate Fishing Office Visit Reporton 07-05-2024 Sales Associate Fishing Office Visit Report [facility] [address] [place] [address], [address] [place] [address] OFFICE VISIT Date of Service: 07/05/24 MR#: [id number] Acct: [id number] Name: BRIGID BELLA Rep #: [id number] : 1985 Provider: Dr. 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 Date Name GA/Weeks Outcome Route Bth Weight Gen Labor Lgth Anesthesia Del Locatn Provider FOB Unknown 01/08/20 [place] 40 live - full term 7# 10oz Male 12 hour s none [place] Dr. Ibeth Carlos 06/17/22 [place] 40 live - full term 8lbs 1oz Male none [facility]: [facility]/17/22 Last Updated by: Diandra [...] Visit Note (more content not included)... Normal [facility] Chlamydia/GC SINA aptimaon CHLAMY,NUC ACID Negative Normal Negative [facility] Comment on above: Performed By: #### M 100.2200, L7000.1800 #### [facility] [address] [place], [place], [address] GC BY NUC ACID Negative Normal Negative [facility] Comment on above: Result Comment: Perf ormed at: =G - [facility] [address] [id number] Website Designer: Maya Barrett MD, Phone: [phone] Performed By: #### M 100.2200, L7000.1800 #### [facility] [address] [place], [address] HIV - WCHon 06-04-2024 HIV Non-Reactive Normal Nonreactive [facility] Comment on above: Order Comment: Reaso n for Exam: Performed By: #### L 3890.6005, L509.8000, BTS, L3890.6100, L3890.6300, L100.0100, L509.4005, L900.0098 ####[facility] [address] [place], [place], [id number] Hepatitis B Surface Antigeno n 06-04-2024 HEP B Surf Ag Non-Reactive Normal Nonreactive [facility] Comment on above: Order Comment: Reaso n for Exam: Performed By: #### L 3890.6005, L509.8000, BTS, L3890.6100, L3890.6300, L100.0100, L509.4005, L900.0098 ####[facility] [address] [place], [address] Hepatitis C Antibodyon 06-04 Hepatitis C AB Non-Reactive Normal Nonreactive [facility] Comment on above: Order Comment: Reaso n for Exam: Result Comment: Non Reactive: < 0.8 Equivocal: >/= 0.8 to < 1.0 Reactive: >/= 1.0 The [facility] requires that a reactive/equivocal HCV antibody result be sent out for confirmation. HCV Quant by PCR testing. Performed By: #### L 3890.6005, L509.8000, BTS, L3890.6100, L3890.6300, L100.0100, L509.4005, L900.0098 ####[facility] [address] [place], [address] L509.8000on 06-04-2024 Syphilis Abs Non-Reactive Normal [facility] Comment on above: Order Comment: Reaso n for Exam: Performed By: #### L 3890.6005, L509.8000, BTS, L3890.6100, L3890.6300, L100.0100, L509.4005, L900.0098 ####[facility] [address] [facility] [place], [address] Rubella IgGon 06-04-2024 Rubella IgG Reactive Normal Nonreactive [facility] Comment on above: Order Comment: Reaso n for Exam: Result Comment: Anti body Results Interpretation of Immune Status Non Reactive Presumed Non-Immune Equivocal Equivocal Reactive Presumed Immune Performed By: #### L 3890.6005, L509.8000, BTS, L3890.6100, L3890.6300, L100.0100, L509.4005, L900.0098 ####[facility] [address] [place], [address] Urine Cultureon 06-04-2024 URC Culture exhibits no growth. Normal [facility] Comment on above: Performed By: #### M 100.2200, L7000.1800 #### [facility] [address] [place], [address] Absolute lymphocyte countOrd ered By: Trish Murray on 06-03-2024 Lymphocytes Auto (Unsp spec) [#/Vol] 2.33 10*3/uL 0.83-4.51 [facility] Absolute neutrophil countOrd ered By: Trish Murray on 06-03-2024 Neutrophils (Bld) [#/Vol] 8.5 10*3/uL High 2.0-7.7 [facility] Automated lymphocyte count a s percentage of total leukocytesOrdered By: Trish Murray on 06-03-2024 Lymphocytes/100 WBC Auto (Unsp spec) 20.1 % 19-41 [facility] Basophil percentageOrdered B y: Trish Murray on 06-03-2024 Basophils/100 WBC (Bld) 0.3 % 0-1 [facility] CBC W/Diff, Automatedon 05-06 Absolute Lymph 2.33 X10 3/uL Normal 0.83-4.51 [facility] Comment on above: Performed By: #### L 3890.6005, L509.8000, BTS, L3890.6100, L3890.6300, L100.0100, L509.4005, L900.0098 ####[facility] [address] [place], [address] Absolute Neut 8.5 X10 3/uL High 2.0-7.7 [facility] Comment on above: Performed By: #### L 3890.6005, L509.8000, BTS, L3890.6100, L3890.6300, L100.0100, L509.4005, L900.0098 ####[facility] [address] [place], [address] Basophils/100 WBC (Bld) 0.3 % Normal 0-1 [facility] Comment on above: Performed By: #### L 3890.6005, L509.8000, BTS, L3890.6100, L3890.6300, L100.0100, L509.4005, L900.0098 ####[facility] [address] [place], [address] Eosinophils/100 WBC (Bld) 0.6 % Normal 0-5 [facility] Comment on above: Performed By: #### L 3890.6005, L509.8000, BTS, L3890.6100, L3890.6300, L100.0100, L509.4005, L900.0098 ####[facility] [address] [place], [address] Erythrocyte distribution width (RBC) [Ratio] 13.3 % Normal 11.6-14.6 [facility] Comment on above: Performed By: #### L 3890.6005, L509.8000, BTS, L3890.6100, L3890.6300, L100.0100, L509.4005, L900.0098 ####[facility] [address] [place], [address] Hematocrit (Bld) [Volume fraction] 36.7 % Low 37-47 [facility] Comment on above: Performed By: #### L 3890.6005, L509.8000, BTS, L3890.6100, L3890.6300, L100.0100, L509.4005, L900.0098 ####[facility] [address] [place], [address] Hemoglobin (Bld) [Mass/Vol] 12.1 g/dL Normal 12.0-15.0 [facility] Comment on above: Performed By: #### L 3890.6005, L509.8000, BTS, L3890.6100, L3890.6300, L100.0100, L509.4005, L900.0098 ####[facility] [address] [place], [address] IG% 0.300 Normal 0.0-0.9 [facility] Comment on above: Result Comment: IG% - Immature Granulocytes (promyelocytes, myelocytes and metamyelocytes) > 1% indicates that a LEFT SHIFT is Present. Performed By: #### L 3890.6005, L509.8000, BTS, L3890.6100, L3890.6300, L100.0100, L509.4005, L900.0098 ####[facility] [address] [place], [address] Lymphocytes/100 WBC (Bld) 20.1 % Normal 19-41 [facility] Comment on above: Performed By: #### L 3890.6005, L509.8000, BTS, L3890.6100, L3890.6300, L100.0100, L509.4005, L900.0098 ####[facility] [address] [place], [address] MCH (RBC) [Entitic mass] 29.4 pg Normal 27.0-32.0 [facility] Comment on above: Performed By: #### L 3890.6005, L509.8000, BTS, L3890.6100, L3890.6300, L100.0100, L509.4005, L900.0098 ####[facility] [address] [place], [address] MCHC (RBC) [Mass/Vol] 33.0 g/dL Normal 32-36 [facility] Comment on above: Performed By: #### L 3890.6005, L509.8000, BTS, L3890.6100, L3890.6300, L100.0100, L509.4005, L900.0098 ####[facility] [address] [place], [address] MCV (RBC) [Entitic vol] 89.1 fL Normal 81-99 [facility] Comment on above: Performed By: #### L 3890.6005, L509.8000, BTS, L3890.6100, L3890.6300, L100.0100, L509.4005, L900.0098 ####[facility] [address] [place], [address] Monocytes/100 WBC (Bld) 5.5 % Normal 0-10 [facility] Comment on above: Performed By: #### L 3890.6005, L509.8000, BTS, L3890.6100, L3890.6300, L100.0100, L509.4005, L900.0098 ####[facility] [address] [place], [address] Neutrophils/100 WBC (Bld) 73.2 % High 47-70 [facility] Comment on above: Performed By: #### L 3890.6005, L509.8000, BTS, L3890.6100, L3890.6300, L100.0100, L509.4005, L900.0098 ####[facility] [address] [place], [address] Nucleated RBC (Bld) [#/Vol] 0 10*3/uL Normal 0-5 [facility] Comment on above: Performed By: #### L 3890.6005, L509.8000, BTS, L3890.6100, L3890.6300, L100.0100, L509.4005, L900.0098 ####[facility] [address] [place], [address] Platelet mean volume (Bld) [Entitic vol] 11.1 fL Normal 6.2-12.0 [facility] Comment on above: Performed By: #### L 3890.6005, L509.8000, BTS, L3890.6100, L3890.6300, L100.0100, L509.4005, L900.0098 ####[facility] [address] [place], [address] Platelets (Bld) [#/Vol] 309 10*3/uL Normal 150-450 [facility] Comment on above: Performed By: #### L 3890.6005, L509.8000, BTS, L3890.6100, L3890.6300, L100.0100, L509.4005, L900.0098 ####[facility] [address] [place], [address] RBC (Bld) [#/Vol] 4.12 10*6/uL Low 4.2-5.4 [facility] Comment on above: Performed By: #### L 3890.6005, L509.8000, BTS, L3890.6100, L3890.6300, L100.0100, L509.4005, L900.0098 ####[facility] [address] [place], [address] RDW SD 43.8 fl Normal 35.1-43.9 [facility] Comment on above: Performed By: #### L 3890.6005, L509.8000, BTS, L3890.6100, L3890.6300, L100.0100, L509.4005, L900.0098 ####[facility] [address] [place], [address] WBC (Bld) [#/Vol] 11.6 10*3/uL High 4.4-11.0 [facility] Comment on above: Performed By: #### L 3890.6005, L509.8000, BTS, L3890.6100, L3890.6300, L100.0100, L509.4005, L900.0098 ####[facility] [address] [place], [address] Chlamydia trachomatis rRNA d etection by probe and target amplification methodOrdered By: Trish Murray on 06-03-2024 C. trachomatis rRNA SINA+probe Ql (Unsp spec) Negative Negative [facility] Eosinophil percentageOrdered By: Trish Murray on 06-03-2024 Eosinophils/100 WBC (Bld) 0.6 % 0-5 [facility] Erythrocyte distribution wid th ratioOrdered By: Trishmiguel Murray on 06-03-2024 Erythrocyte distribution width (RBC) [Ratio] 13.3 % 11.6-14.6 [facility] Erythrocyte distribution wid th standard deviationOrdered By: Trish Murray on 06-03-2024 Erythrocyte distribution width (RBC) [Ratio] 43.8 fl 35.1-43.9 [facility] HIV 1 and HIV-2 antibody ass ay with HIV-1 p24 antigen detectionOrdered By: Trish Murray on 06-03-2024 HIV 1+2 Ab+HIV1 p24 Ag IA Ql Non-Reactive Nonreactive [facility] Hematocrit Auto (Bld) [Volum e fraction]Ordered By: Trish Murray on 06-03-2024 Hematocrit (Bld) [Volume fraction] 36.7 % Low 37-47 [facility] Hemoglobin measurementOrdere d By: Trish Murray on 06-03-2024 Hemoglobin (Bld) [Mass/Vol] 12.1 g/dL 12.0-15.0 [facility] Immature granulocytes/100 WB C Auto (Bld)Ordered By: Trish Murray on 06-03-2024 Immature granulocytes/100 WBC (Bld) 0.300 % 0.0-0.9 [facility] Comment on above: IG% - Immature Granu locytes (promyelocytes, myelocytes and metamyelocytes) > 1% indicates that a LEFT SHIFT is Present. MCV (mean corpuscular volume ) determinationOrdered By: Trish Murray on 06-03-2024 MCV (RBC) [Entitic vol] 89.1 fL 81-99 [facility] Mean corpuscular hemoglobin (MCH) determinationOrdered By: Trish Murray on 06-03-2024 MCH (RBC) [Entitic mass] 29.4 pg 27.0-32.0 [facility] Mean corpuscular hemoglobin concentration (MCHC) determinationOrdered By: Trish Murray on 06-03-2024 MCHC (RBC) [Mass/Vol] 33.0 g/dL 32-36 [facility] Mean platelet volume determi nationOrdered By: Trish Murray on 06-03-2024 Platelet mean volume (Bld) [Entitic vol] 11.1 fL 6.2-12.0 [facility] Monocyte percentageOrdered B y: Trish Murray on 06-03-2024 Monocytes/100 WBC (Bld) 5.5 % 0-10 [facility] NATERAon 06-03-2024 NATURA SEE SCANNED REPORT Normal [facility] Comment on above: Order Comment: Comme nts: NIPT WITHOUT GENDER Performed By: #### L 3890.6005, L509.8000, BTS, L3890.6100, L3890.6300, L100.0100, L509.4005, L900.0098 ####[facility] [address] [place], [place], [address] Neisseria gonorrhoeae nuclei c acid detection by amplified probe techniqueOrdered By: Trish Murray on 06-03-2024 N. gonorrhoeae DNA SINA+probe Ql (Unsp spec) Negative Negative [facility] Comment on above: Performed at: =[facility]za[facility] [place] [id number] Director: Maya Barrett MD, Phone: [phone] Neutrophil percentageOrdered By: Trish Murray on 06-03-2024 Neutrophils/100 WBC (Bld) 73.2 % High 47-70 [facility] Nucleated red blood cell per centageOrdered By: Trihs Murray on 06-03-2024 Nucleated RBC/100 WBC (Bld) [Ratio] 0 % 0-5 [facility] [employer] Associate F[employer] Office Visit Reporton 06-03-2024 Sales Associate Fishing Office Visit Report [facility] [address], [address] [place] [address] OFFICE VISIT Date of Service: 06/03/24 MR#: [id number] Acct: [id number] Name: BRIGID BELLA Rep #: [id number] : 1985 Provider: LIMA holman Age/Sex: 39/F [place] [facility] [place]: Signed Intake Vital Signs 02/24/24 08:27 05/03/24 10:41 06/03/24 11:26 Height 5 ft 5 in 5 ft 5 in Weight: 142 lb BMI 23.6 BP 113/76 Intake Visit Reasons: New OB, LMP 03/03/24, JAZMIN 12/08/24 Distance Education Teacher Required: No Is patient in pain?: No [...] umbilical cord Supervision of normal Surgical History [place] teeth extracted No pertinent past surgical history [...] 2 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 Date Name GA/Weeks Outcome Route Bth Weight Gen Labor Lgth Anesthesia Del Locatn Provider FOB Unknown 01/08/20 [place] 40 live - full term 7# 10oz Male 12 hour s none [place] Dr. Ibeht Carlos 06/17/22 [place] 40 live - full term 8lbs 1oz Male none [facility] Delivery Date: 06/17/22 Last Updated by: [...] -???-???-???-???-???-? ??-???-???-?? (more content not included)... Normal [facility] Platelet countOrdered By: Danuta Murray on 06-03-2024 Platelets (Bld) [#/Vol] 309 10*3/uL 150-450 [facility] RBC Auto (Bld) [#/Vol]Ordere d By: Trish Murray on 06-03-2024 RBC (Bld) [#/Vol] 4.12 10*6/uL Low 4.2-5.4 [facility] Serum Treponema species anti body detectionOrdered By: Trish Murray on 06-03-2024 Treponema sp Ab Ql (S) Non-Reactive [facility] Type AND Screenon 06-03-2024 Ab SCREEN GEL Negative Normal [facility] Comment on above: Order Comment: PN Performed By: #### L 3890.6005, L509.8000, BTS, L3890.6100, L3890.6300, L100.0100, L509.4005, L900.0098 ####[facility] [address] [place], [place], [address] Urine cultureOrdered By: Jossy Murray on 06-03-2024 Bacteria identified Cx Nom (U) Culture exhibits no growth. [facility] White blood cell (WBC) count Ordered By: Trishmuriel Murray on 06-03-2024 WBC (Bld) [#/Vol] 11.6 10*3/uL High 4.4-11.0 [facility] Thyroidon 03-09-2024 Thyroid [facility] [address] [place] [address] Thyroid MR#: [id number] Acct: [id number] Name: BRIGID BELLA Rep #: [id number] : 1985 F 38 From: Santo acosta MD PCP: Dr. Yousuf Ortiz MD Status: [facility] Study: Thyroid Date of Exam: 03/09/24 Exam# [id number] Ordering Dr: Yousuf Ortiz [place] [id number] STUDY: THYROID ULTRASOUND REASON FOR EXAM: Female, [...] Signed: Santo Rowe MD at 14:30 EST , CC: Dr. Yousuf Ortiz MD Pharmaceutical Specialty Representative: Signed Normal [facility] CBC W/Diff, Automatedon 10-2 Absolute Lymph 2.59 X10 3/uL Normal 0.83-4.51 [facility] Comment on above: Performed By: #### L 100.0100, L503.0105, L506.0400, L501.9186, L500.4050, L500.4100, L506.1000, L501.9520 #### [facility] [address] [place], [address] Absolute Neut 3.3 X10 3/uL Normal 2.0-7.7 [facility] Comment on above: Performed By: #### L 100.0100, L503.0105, L506.0400, L501.9186, L500.4050, L500.4100, L506.1000, L501.9520 #### [facility] [address] [place], [address] Basophils/100 WBC (Bld) 0.8 % Normal 0-1 [facility] Comment on above: Performed By: #### L 100.0100, L503.0105, L506.0400, L501.9186, L500.4050, L500.4100, L506.1000, L501.9520 #### [facility] [address] [place], [address] Eosinophils/100 WBC (Bld) 1.8 % Normal 0-5 [facility] Comment on above: Performed By: #### L 100.0100, L503.0105, L506.0400, L501.9186, L500.4050, L500.4100, L506.1000, L501.9520 #### [facility] [address] [place] [place], [address] Erythrocyte distribution width (RBC) [Ratio] 12.9 % Normal 11.6-14.6 [facility] Comment on above: Performed By: #### L 100.0100, L503.0105, L506.0400, L501.9186, L500.4050, L500.4100, L506.1000, L501.9520 #### [facility] [address] [place], [address] Hematocrit (Bld) [Volume fraction] 40.4 % Normal 37-47 [facility] Comment on above: Performed By: #### L 100.0100, L503.0105, L506.0400, L501.9186, L500.4050, L500.4100, L506.1000, L501.9520 #### [facility] [address] [place], [address] Hemoglobin (Bld) [Mass/Vol] 12.8 g/dL Normal 12.0-15.0 [facility] Comment on above: Performed By: #### L 100.0100, L503.0105, L506.0400, L501.9186, L500.4050, L500.4100, L506.1000, L501.9520 #### [facility] [address] [place], [address] IG% 0.200 Normal 0.0-0.9 [facility] Comment on above: Result Comment: IG% - Immature Granulocytes (promyelocytes, myelocytes and metamyelocytes) > 1% indicates that a LEFT SHIFT is Present. Performed By: #### L 100.0100, L503.0105, L506.0400, L501.9186, L500.4050, L500.4100, L506.1000, L501.9520 #### [facility] [address] [place], [address] Lymphocytes/100 WBC (Bld) 39.3 % Normal 19-41 [facility] Comment on above: Performed By: #### L 100.0100, L503.0105, L506.0400, L501.9186, L500.4050, L500.4100, L506.1000, L501.9520 #### [facility] [address] [place], [address] MCH (RBC) [Entitic mass] 28.5 pg Normal 27.0-32.0 [facility] Comment on above: Performed By: #### L 100.0100, L503.0105, L506.0400, L501.9186, L500.4050, L500.4100, L506.1000, L501.9520 #### [facility] [address] [place], [address] MCHC (RBC) [Mass/Vol] 31.7 g/dL Low 32-36 [facility] Comment on above: Performed By: #### L 100.0100, L503.0105, L506.0400, L501.9186, L500.4050, L500.4100, L506.1000, L501.9520 #### [facility] [address] [place] [place], [address] MCV (RBC) [Entitic vol] 90.0 fL Normal 81-99 [facility] Comment on above: Performed By: #### L 100.0100, L503.0105, L506.0400, L501.9186, L500.4050, L500.4100, L506.1000, L501.9520 #### [facility] [address] [place], [address] Monocytes/100 WBC (Bld) 8.5 % Normal 0-10 [facility] Comment on above: Performed By: #### L 100.0100, L503.0105, L506.0400, L501.9186, L500.4050, L500.4100, L506.1000, L501.9520 #### [facility] [address] [place] [place], [address] Neutrophils/100 WBC (Bld) 49.4 % Normal 47-70 [facility] Comment on above: Performed By: #### L 100.0100, L503.0105, L506.0400, L501.9186, L500.4050, L500.4100, L506.1000, L501.9520 #### [facility] [address] [place], [address] Nucleated RBC (Bld) [#/Vol] 0 10*3/uL Normal 0-5 [facility] Comment on above: Performed By: #### L 100.0100, L503.0105, L506.0400, L501.9186, L500.4050, L500.4100, L506.1000, L501.9520 #### [facility] [address] [place] [place], [address] Platelet mean volume (Bld) [Entitic vol] 11.9 fL Normal 6.2-12.0 [facility] Comment on above: Performed By: #### L 100.0100, L503.0105, L506.0400, L501.9186, L500.4050, L500.4100, L506.1000, L501.9520 #### [facility] [address] [place], [address] Platelets (Bld) [#/Vol] 296 10*3/uL Normal 150-450 [facility] Comment on above: Performed By: #### L 100.0100, L503.0105, L506.0400, L501.9186, L500.4050, L500.4100, L506.1000, L501.9520 #### [facility] [address] [place], [address] RBC (Bld) [#/Vol] 4.49 10*6/uL Normal 4.2-5.4 [facility] Comment on above: Performed By: #### L 100.0100, L503.0105, L506.0400, L501.9186, L500.4050, L500.4100, L506.1000, L501.9520 #### [facility] [address] [place], [place], [address] RDW SD 43.0 fl Normal 35.1-43.9 [facility] Comment on above: Performed By: #### L 100.0100, L503.0105, L506.0400, L501.9186, L500.4050, L500.4100, L506.1000, L501.9520 #### [facility] [address] [place], [address] WBC (Bld) [#/Vol] 6.6 10*3/uL Normal 4.4-11.0 [facility] Comment on above: Performed By: #### L 100.0100, L503.0105, L506.0400, L501.9186, L500.4050, L500.4100, L506.1000, L501.9520 #### [facility] [address] [place], [place], [address] Comprehensive Metabolic Prof [facility] 02-24-2024 Albumin [Mass/Vol] 4.3 g/dL Normal 3.2-5.0 [facility] Comment on above: Performed By: #### L 100.0100, L503.0105, L506.0400, L501.9186, L500.4050, L500.4100, L506.1000, L501.9520 ####[facility] [address] [place], [place], [address] Albumin/Globulin [Mass ratio] 1.2 {ratio} Normal 0.9-2.4 [facility] Comment on above: Performed By: #### L 100.0100, L503.0105, L506.0400, L501.9186, L500.4050, L500.4100, L506.1000, L501.9520 ####[facility] [address] [place], [place], [phone] ALK P 42 U/L Low 45-117 [facility] Comment on above: Performed By: #### L 100.0100, L503.0105, L506.0400, L501.9186, L500.4050, L500.4100, L506.1000, L501.9520 ####[facility] [address] [place], [place], [phone] ALT [Catalytic activity/Vol] 23 U/L Normal 13-56 [facility] Comment on above: Performed By: #### L 100.0100, L503.0105, L506.0400, L501.9186, L500.4050, L500.4100, L506.1000, L501.9520 ####[facility] [address] [place], [address] AST [Catalytic activity/Vol] 13 U/L Low 15-37 [facility] Comment on above: Performed By: #### L 100.0100, L503.0105, L506.0400, L501.9186, L500.4050, L500.4100, L506.1000, L501.9520 ####[facility] [address] [place], [address] Bilirubin [Mass/Vol] 0.50 mg/dL Normal 0.20-1.00 [facility] Comment on above: Result Comment: For patients on eltrombopag therapy, use of Dimension [place] TBIL is not recommended. Performed By: #### L 100.0100, L503.0105, L506.0400, L501.9186, L500.4050, L500.4100, L506.1000, L501.9520 ####[facility] [address] [place], [address] BUN/CRE 21.3 RATIO High 10-20 [facility] Comment on above: Performed By: #### L 100.0100, L503.0105, L506.0400, L501.9186, L500.4050, L500.4100, L506.1000, L501.9520 ####[facility] [address] [place], [address] CA,Total 9.3 mg/dL Normal 8.5-10.1 [facility] Comment on above: Performed By: #### L 100.0100, L503.0105, L506.0400, L501.9186, L500.4050, L500.4100, L506.1000, L501.9520 ####[facility] [address] [place], [address] Chloride [Moles/Vol] 107 mmol/L Normal 98-107 [facility] Comment on above: Performed By: #### L 100.0100, L503.0105, L506.0400, L501.9186, L500.4050, L500.4100, L506.1000, L501.9520 ####[facility] [address] [place], [address] CO2 [Moles/Vol] 26.0 mmol/L Normal 21.0-32.0 [facility] Comment on above: Performed By: #### L 100.0100, L503.0105, L506.0400, L501.9186, L500.4050, L500.4100, L506.1000, L501.9520 ####[facility] [address] [place], [address] Creatinine [Mass/Vol] 0.75 mg/dL Normal 0.55-1.02 [facility] Comment on above: Result Comment: The validity of the calculated GFR GFRAA in patients over 70 years has not been determined. Clinical correlation is essential. Performed By: #### L 100.0100, L503.0105, L506.0400, L501.9186, L500.4050, L500.4100, L506.1000, L501.9520 ####[facility] [address] [place], [address] EST GFR - AA 111 mL/min Normal >60 [facility] Comment on above: Result Comment: Afri can Swedish GFR Calc Performed By: #### L 100.0100, L503.0105, L506.0400, L501.9186, L500.4050, L500.4100, L506.1000, L501.9520 ####[facility] [address] [place], [place], [id number] GAP 4 Low 5-15 [facility] Comment on above: Performed By: #### L 100.0100, L503.0105, L506.0400, L501.9186, L500.4050, L500.4100, L506.1000, L501.9520 ####[facility] [address] [place], [address] GFR/1.73 sq M.predicted among non-blacks MDRD (S/P/Bld) [Vol rate/Area] 92 mL/min/{1.73_m2} Normal >60 [facility] Comment on above: Result Comment: Non- GFR Calc Performed By: #### L 100.0100, L503.0105, L506.0400, L501.9186, L500.4050, L500.4100, L506.1000, L501.9520 ####[facility] [address] [place], [address] Globulin (S) [Mass/Vol] 3.5 g/dL Normal 2.2-4.2 [facility] Comment on above: Performed By: #### L 100.0100, L503.0105, L506.0400, L501.9186, L500.4050, L500.4100, L506.1000, L501.9520 ####[facility] [address] [place], [address] Glucose [Mass/Vol] 89 mg/dL Normal 74-106 [facility] Comment on above: Performed By: #### L 100.0100, L503.0105, L506.0400, L501.9186, L500.4050, L500.4100, L506.1000, L501.9520 ####[facility] [address] [place], [address] Potassium [Moles/Vol] 3.9 mmol/L Normal 3.5-5.1 [facility] Comment on above: Performed By: #### L 100.0100, L503.0105, L506.0400, L501.9186, L500.4050, L500.4100, L506.1000, L501.9520 ####[facility] [address] [place], [address] Sodium [Moles/Vol] 136 mmol/L Normal 136-145 [facility] Comment on above: Performed By: #### L 100.0100, L503.0105, L506.0400, L501.9186, L500.4050, L500.4100, L506.1000, L501.9520 ####[facility] [address] [place], [address] T PROT 7.8 g/dL Normal 6.4-8.2 [facility] Comment on above: Performed By: #### L 100.0100, L503.0105, L506.0400, L501.9186, L500.4050, L500.4100, L506.1000, L501.9520 ####[facility] [address] [place], [address] Urea nitrogen [Mass/Vol] 16 mg/dL Normal 7-18 [facility] Comment on above: Performed By: #### L 100.0100, L503.0105, L506.0400, L501.9186, L500.4050, L500.4100, L506.1000, L501.9520 ####[facility] [address] [place], [address] Lipid Profileon 02-24-2024 Cholesterol [Mass/Vol] 265 mg/dL High 200 [facility] Comment on above: Result Comment: <200 mg/dL Desirable 200-240 mg/dL Borderline >240 mg/dL High Risk Performed By: #### L 100.0100, L503.0105, L506.0400, L501.9186, L500.4050, L500.4100, L506.1000, L501.9520 ####[facility] [address] [place], [address] Cholesterol in HDL [Mass/Vol] 77 mg/dL Normal [facility] Comment on above: Result Comment: The drugs N-Acetylcysteine and Metamizole may falsely depress this assay. Reference Range HDL <40 mg/dL Low HDL Cholesterol HDL >or= 60 mg/dL High HDL Cholesterol Performed By: #### L 100.0100, L503.0105, L506.0400, L501.9186, L500.4050, L500.4100, L506.1000, L501.9520 ####[facility] [address] [place], [address] Cholesterol in LDL [Mass/Vol] 176 mg/dL High 0-130 [facility] Comment on above: Performed By: #### L 100.0100, L503.0105, L506.0400, L501.9186, L500.4050, L500.4100, L506.1000, L501.9520 ####[facility] [address] [place], [place], [id number] Cholesterol in VLDL [Mass/Vol] 12 mg/dL Normal 5-40 [facility] Comment on above: Performed By: #### L 100.0100, L503.0105, L506.0400, L501.9186, L500.4050, L500.4100, L506.1000, L501.9520 ####[facility] [address] [place], [place], [phone] Triglyceride [Mass/Vol] 58 mg/dL Normal [facility] Comment on above: Result Comment: The drugs N-Acetylcysteine and Metamizole may falsely depress this assay. Serum Triglycerides Reference Interval Normal <150 mg/dL Borderline high 150 - 199 mg/dL High 200 - 499 mg/dL Very High > or = 500 mg/dL Performed By: #### L 100.0100, L503.0105, L506.0400, L501.9186, L500.4050, L500.4100, L506.1000, L501.9520 ####[facility] [address] [place], [place], [id number] T3 Total - Triiodothyronineo n 02-24-2024 T3 Total 0.92 ng/mL Normal 0.6-1.81 [facility] Comment on above: Performed By: #### L 100.0100, L503.0105, L506.0400, L501.9186, L500.4050, L500.4100, L506.1000, L501.9520 ####[facility] [address] [place], [place], [id number] T4 Free Directon 02-24-2024 T4 FREE DIRECT 0.77 ng/dL Normal 0.76-1.46 [facility] Comment on above: Performed By: #### L 100.0100, L503.0105, L506.0400, L501.9186, L500.4050, L500.4100, L506.1000, L501.9520 ####[facility] [address] [place], [place], [id number] Thyroid Stim Hormone (TSH)on 02-24-2024 TSH 3.400 uIU/mL Normal 0.358-3.740 [facility] Comment on above: Performed By: #### L 100.0100, L503.0105, L506.0400, L501.9186, L500.4050, L500.4100, L506.1000, L501.9520 ####[facility] [address] [place], [address] Vitamin B12on 02-24-2024 Cobalamin (Vitamin B12) [Mass/Vol] 716 pg/mL Normal 211-911 [facility] Comment on above: Performed By: #### L 100.0100, L503.0105, L506.0400, L501.9186, L500.4050, L500.4100, L506.1000, L501.9520 ####[facility] [address] [place], [address] Vitamin D,25 Hydroxyon 02-23 Vitamin D 25-OH 26.0 ng/mL Normal [facility] Comment on above: Result Comment: Diana min D 25(OH) Status Range Deficiency <20 ng/mL (50nmol/L) Insufficiency 20 - 30 ng/mL (50 - 75 nmol/L) Sufficiency 30 - 100 ng/mL (75 - 250 nmol/L) Toxicity >100 ng/mL (>250 nmol/L) Performed By: #### L 100.0100, L503.0105, L506.0400, L501.9186, L500.4050, L500.4100, L506.1000, L501.9520 ####[facility] [address] [place], [address] Internal Medicine Office Vis iton 02-23-2024 Internal Medicine Office Visit [facility] [address] [place] [address] [place] [address] OFFICE VISIT Date of Service: 02/24/24 MR#: [id number] Acct: [id number] Name: BRIGID BELLA Rep #: [id number] 18 : 1985 Provider: Dr. 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 Chief Complaint: est care Distance Education Teacher Required: No Accompanied by: Self Is patient [...] 2 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 She was seeing somebody at the [facility] and last saw them last year. She [...] or oth (more content not included)... Normal [facility] CNOVon 08-23-2023 CN Office Visit (UCWSTR ) BRIGID BELLA ([id number]) 1985 F Date Time Provider Department 08/23/23 10:00 AM TITA HOUSER [facility] During your visit today, we recorded the following information about you: Temperature Pulse Respiration Blood pressure 97.2 degrees 64/minute 18/minute 100/65 Weight Last Period 61 kg 08/23/23 Tita Houser APRN.DOMINATRIX 08/23/2023 10:35 AM Signed This note was created using Zapprovedriter. Subjective Brigid Dorman Shayne is a 38 [...] is provided by the patient. No speech language pathologist was used. Eye Problem This is a [...] Cardiovascular: Rate (more content not included)... Normal [facility] 06-29-2023 [facility] Telephone (FAMWS) BRIGID BELLA ([id number]) 1985 F Date Time Provider Department 06/29/23 [...] by JUAN A VILLARREAL on 07/06/23 Normal [facility] Lipid 1996 panelon 4 Cholesterol [Mass/Vol] 221 mg/dL High <200 Cl [facility] Comment on above: Order Comment: Speci men Type: BLOOD SPECIMEN Ordering Facility: [facility] Address: [address] [place] [address] Result Comment: <200 mg/dL, Desirable 200-239 mg/dL, Borderline high >239 mg/dL, High Performed By: #### 2 4331-1 #### [facility] CLIA [id number] [address] [place] [address] Cholesterol in HDL [Mass/Vol] 63 mg/dL Normal >39 [facility] Comment on above: Order Comment: Jacky men Type: BLOOD SPECIMEN Ordering Facility: [facility] Address: [address] [place] [address] Result Comment: 40-5 9 mg/dL, Acceptable >59 mg/dL, High: Negative risk factor for coronary heart disease <40 mg/dL, Low: Positive risk factor for coronary heart disease Performed By: #### 2 4331-1 #### [facility] CLIA [id number] [address] [place] [address] Cholesterol in LDL [Mass/Vol] 150 mg/dL High <100 [facility] Comment on above: Order Comment: Jacky armendariz Type: BLOOD SPECIMEN Ordering Facility: [facility] Address: [address] [place] [address] Result Comment: <100 mg/dL, Optimal 100-129 mg/dL, Near optimal/above optimal 130-159 mg/dL, Borderline high 160-189 mg/dL, High >189 mg/dL, Very high Secondary prevention optimal LDL Cholesterol levels are recommended to be < 70 mg/dL Performed By: #### 2 4331-1 #### [facility] IA [id number] [address] [place] [address] OF [facility] Cholesterol in LDL/Cholesterol in HDL [Mass ratio] 2.38 {ratio} Normal <2.54 [facility] Comment on above: Order Comment: Jacky kala Type: BLOOD SPECIMEN Ordering Facility: [facility] Address: [address] [place] [address] Result Comment: Ravi brown: 1. National Cholesterol Education Program ATP III Guideline At-A-Glance Quick Desk Reference: National Heart, Lung, and Blood [place]. National Institutes of Health. 2001: NIH Publication No. 01-3305. 2. An International Atherosclerosis Society position paper: global recommendations for the management of dyslipidemia: executive summary, Atherosclerosis. 2014: 232(2):410-413. Performed By: #### 2 4331-1 #### [facility] CLIA [id number] [address] [place] [address] [place] Cholesterol in VLDL [Mass/Vol] 8 mg/dL Normal <30 [facility] Comment on above: Order Comment: Jacky men Type: BLOOD SPECIMEN Ordering Facility: [facility] Address: [address] [place] [address] Performed By: #### 2 4331-1 #### [facility] CLIA [id number] [address] [place] [address] [place] Cholesterol non HDL [Mass/Vol] 158 mg/dL High <130 [facility] Comment on above: Order Comment: Jacky armendariz Type: BLOOD SPECIMEN Ordering Facility: [facility] Address: [address] [place] [address] Result Comment: <130 mg/dL, Optimal 130-159 mg/dL, Near optimal/above optimal 160-189 mg/dL, Borderline high 190-219 mg/dL, High >219 mg/dL, Very high Secondary prevention optimal non HDL Cholesterol levels are recommended to be <100 mg/dL Performed By: #### 2 4331-1 #### [facility] CLIA [id number] [address] [place] [address] [place] Cholesterol.total/Chol esterol in HDL [Mass ratio] 3.51 {ratio} Normal <5.10 [facility] Comment on above: Order Comment: Jacky armendariz Type: BLOOD SPECIMEN Ordering Facility: [facility] Address: [address] [place] [address] Performed By: #### 2 4331-1 #### [facility] CLIA [id number] [address] [place] [address] [place] FASTING TIME 13 hrs Normal [facility] Comment on above: Order Comment: Jacky men Type: BLOOD SPECIMEN Ordering Facility: [facility] Address: [address] [place] [address] Performed By: #### 2 4331-1 #### [facility] CLIA [id number] [address] [place] [address] [place] Triglyceride [Mass/Vol] 40 mg/dL Normal <150 [facility] Comment on above: Order Comment: Speci men Type: BLOOD SPECIMEN Ordering Facility: [facility] Address: [address] [place] [address] Result Comment: <150 mg/dL, Normal 150-199 mg/dL, Borderline high 200-499 mg/dL, High >499 mg/dL, Very high Performed By: #### 2 4331-1 #### [facility] CLIA [id number] [address] [place] [address] [place] CNOVon 03-20-2023 CNOV Office Visit (FAMPWS ) BRIGID BELLA ([id number]) 1985 F Date Time Provider Department 03/20/23 8:00 AM [facility] During your visit today, we recorded the following information about you: Pulse Respiration Blood pressure Weight 64/minute 16/minute 106/66 61.2 kg Last Period 12/12/22 Jairo Romero MD 03/20/2023 7:41 PM Signed Chief Complaint Patient presents with: Physical HPI Brigid Dorman Shayne is a 37 [...] last [address] 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 Melasma on forehead may be slightly is analyst. Head: Normocephalic, no masses, lesions, tenderness or [...] Influenza Vaccine(1) due on 01/02/2023 Covid-19 Vaccine( - 2022- season) due on 01/02/2023 DTaP,Tdap,Td Vaccine(9 - Td or Tdap) due on 04/07/2032 Hepatitis (more content not included)... Normal [facility] CBC W Auto Differential pane l (Bld)on 03-13-2023 Basophils (Bld) [#/Vol] 0.04 10*3/uL Normal <0.11 [facility] Comment on above: Order Comment: Speci men Type: BLOOD SPECIMEN Ordering Facility: [facility] Address: [address] [place] [address] Performed By: #### 5 7021-8 #### [facility] CLIA [id number] [address] [facility] [place] [address] [place] Basophils/100 WBC (Bld) 0.6 % Normal [facility] Comment on above: Order Comment: Speci men Type: BLOOD SPECIMEN Ordering Facility: [facility] Address: [address] [place] [address] Performed By: #### 5 7021-8 #### [facility] CLIA [id number] [address] [place] [address] [place] Differential cell count method Nom (Bld) Auto Normal [facility] Comment on above: Order Comment: Speci men Type: BLOOD SPECIMEN Ordering Facility: [facility] Address: [address] [place] [address] Performed By: #### 5 7021-8 #### [facility] CLIA [id number] [address] [place] [address] [place] Eosinophils (Bld) [#/Vol] 0.22 10*3/uL Normal <0.46 [facility] Comment on above: Order Comment: Speci men Type: BLOOD SPECIMEN Ordering Facility: [facility] Address: [address] [place] [address] Performed By: #### 5 7021-8 #### [facility] CLIA [id number] [address] [place] [address] [place] Eosinophils/100 WBC (Bld) 3.3 % Normal [facility] Comment on above: Order Comment: Speci men Type: BLOOD SPECIMEN Ordering Facility: [facility] Address: [address] [place] [address] Performed By: #### 5 7021-8 #### [facility] CLIA [id number] [address] [place] [address] [place] Erythrocyte distribution width (RBC) [Ratio] 12.6 % Normal 11.5-15.0 [facility] Comment on above: Order Comment: Speci men Type: BLOOD SPECIMEN Ordering Facility: [facility] Address: [address] [place] [address] Performed By: #### 5 7021-8 #### [facility] CLIA [id number] [address] [place] [address] [place] Hematocrit (Bld) [Volume fraction] 40.1 % Normal 36.0-46.0 [facility] Comment on above: Order Comment: Speci men Type: BLOOD SPECIMEN Ordering Facility: [facility] Address: [address] [place] [address] Performed By: #### 5 7021-8 #### [facility] CLIA [id number] [address] [place] [address] [place] Hemoglobin (Bld) [Mass/Vol] 13.0 g/dL Normal 11.5-15.5 [facility] Comment on above: Order Comment: Speci men Type: BLOOD SPECIMEN Ordering Facility: [facility] Address: [address] [place] [address] Performed By: #### 5 7021-8 #### [facility] CLIA [id number] [address] [place] [address] [place] Immature granulocytes (Bld) [#/Vol] 10*3/uL Normal <0.10 [facility] Comment on above: Order Comment: Speci men Type: BLOOD SPECIMEN Ordering Facility: [facility] Address: [address] [place] [address] Performed By: #### 5 7021-8 #### [facility] CLIA [id number] [address] [place] [address] [place] Immature granulocytes/100 WBC (Bld) 0.1 % Normal [facility] Comment on above: Order Comment: Speci men Type: BLOOD SPECIMEN Ordering Facility: [facility] Address: [address] [place] [address] Performed By: #### 5 7021-8 #### [facility] CLIA [id number] [address] [place] [address] [place] Lymphocytes (Bld) [#/Vol] 2.45 10*3/uL Normal 1.00-4.00 [facility] Comment on above: Order Comment: Speci men Type: BLOOD SPECIMEN Ordering Facility: [facility] Address: [address] [place] [address] Performed By: #### 5 7021-8 #### [facility] CLIA [id number] [address] [place] [address] [place] Lymphocytes/100 WBC (Bld) 36.2 % Normal [facility] Comment on above: Order Comment: Speci men Type: BLOOD SPECIMEN Ordering Facility: [facility] Address: [address] [place] [address] Performed By: #### 5 7021-8 #### [facility] CLIA [id number] [address] [place] [address] [place] MCH (RBC) [Entitic mass] 29.1 pg Normal 26.0-34.0 [facility] Comment on above: Order Comment: Speci men Type: BLOOD SPECIMEN Ordering Facility: [facility] Address: [address] [place] [address] Performed By: #### 5 7021-8 #### [facility] CLIA [id number] [address] [place] [address] [place] MCHC (RBC) [Mass/Vol] 32.4 g/dL Normal 30.5-36.0 [facility] Comment on above: Order Comment: Speci men Type: BLOOD SPECIMEN Ordering Facility: [facility] Address: [address] [place] [address] Performed By: #### 5 7021-8 #### [facility] CLIA [id number] [address] [place] [address] [place] MCV (RBC) [Entitic vol] 89.7 fL Normal 80.0-100.0 [facility] Comment on above: Order Comment: Speci men Type: BLOOD SPECIMEN Ordering Facility: [facility] Address: [address] [place] [address] Performed By: #### 5 7021-8 #### [facility] CLIA [id number] [address] [place] [address] [place] Monocytes (Bld) [#/Vol] 0.60 10*3/uL Normal <0.87 [facility] Comment on above: Order Comment: Speci men Type: BLOOD SPECIMEN Ordering Facility: [facility] Address: [address] [place] [address] Performed By: #### 5 7021-8 #### [facility] CLIA [id number] [address] [place] [address] [place] Monocytes/100 WBC (Bld) 8.9 % Normal [facility] Comment on above: Order Comment: Speci men Type: BLOOD SPECIMEN Ordering Facility: [facility] Address: [address] [place] [address] Performed By: #### 5 7021-8 #### [facility] CLIA [id number] [address] [place] [address] [place] Neutrophils (Bld) [#/Vol] 3.44 10*3/uL Normal 1.45-7.50 [facility] Comment on above: Order Comment: Speci men Type: BLOOD SPECIMEN Ordering Facility: [facility] Address: [address] [place] [address] Performed By: #### 5 7021-8 #### [facility] CLIA [id number] [address] [place] [address] [place] Neutrophils/100 WBC (Bld) 50.9 % Normal [facility] Comment on above: Order Comment: Speci men Type: BLOOD SPECIMEN Ordering Facility: [facility] Address: [address] [place] [address] Performed By: #### 5 7021-8 #### [facility] CLIA [id number] [address] [place] [address] [place] Nucleated RBC (Bld) [#/Vol] 10*3/uL Normal <0.01 [facility] Comment on above: Order Comment: Speci men Type: BLOOD SPECIMEN Ordering Facility: [facility] Address: [address] [place] [address] Performed By: #### 5 7021-8 #### [facility] CLIA [id number] [address] [place] [address] [place] Nucleated RBC/100 WBC (Bld) [Ratio] 0.0 /100 WBC Normal [facility] Comment on above: Order Comment: Speci men Type: BLOOD SPECIMEN Ordering Facility: [facility] Address: [address] [place] [address] Performed By: #### 5 7021-8 #### [facility] CLIA [id number] [address] [place] [address] [place] Platelet mean volume (Bld) [Entitic vol] 11.4 fL Normal 9.0-12.7 [facility] Comment on above: Order Comment: Speci men Type: BLOOD SPECIMEN Ordering Facility: [facility] Address: [address] [place] [address] Performed By: #### 5 7021-8 #### [facility] CLIA [id number] [facility] [place] [address] [place] Platelets (Bld) [#/Vol] 293 10*3/uL Normal 150-400 [facility] Comment on above: Order Comment: Speci men Type: BLOOD SPECIMEN Ordering Facility: [facility] Address: [address] [place] [address] Performed By: #### 5 7021-8 #### [facility] CLIA [id number] [address] [place] [address] [place] RBC (Bld) [#/Vol] 4.47 10*6/uL Normal 3.90-5.20 [facility] Comment on above: Order Comment: Speci men Type: BLOOD SPECIMEN Ordering Facility: [facility] Address: [address] [place] [address] Performed By: #### 5 7021-8 #### [facility] CLIA [id number] [address] [place] [address] [place] WBC (Bld) [#/Vol] 6.76 10*3/uL Normal 3.70-11.00 [facility] Comment on above: Order Comment: Speci men Type: BLOOD SPECIMEN Ordering Facility: [facility] Address: [address] [place] [address] Performed By: #### 5 7021-8 #### [facility] CLIA [id number] [address] [place] [address] [place] Comprehensive metabolic 2000 panelon 03-13-2023 Albumin [Mass/Vol] 4.7 g/dL Normal 3.9-4.9 [facility] Comment on above: Order Comment: Speci men Type: BLOOD SPECIMEN Ordering Facility: [facility] Address: [address] [place] [address] Performed By: #### 2 4331-1, 35929-8 #### [facility] CLIA [id number] [address] [place] [address] [place] ALP [Catalytic activity/Vol] 72 U/L Normal 34-123 [facility] Comment on above: Order Comment: Speci men Type: BLOOD SPECIMEN Ordering Facility: [facility] Address: [address] [place] [address] Performed By: #### 2 4331-1, 63109-5 #### [facility] CLIA [id number] [address] [place] [address] [place] ALT [Catalytic activity/Vol] 16 U/L Normal 7-38 [facility] Comment on above: Order Comment: Speci men Type: BLOOD SPECIMEN Ordering Facility: [facility] Address: [address] [place] [address] Performed By: #### 2 4331-1, 28380-1 #### [facility] CLIA [id number] [address] [place] [id number] [place] Anion gap [Moles/Vol] 12 mmol/L Normal 9-18 [facility] Comment on above: Order Comment: Speci men Type: BLOOD SPECIMEN Ordering Facility: [facility] Address: [address] [place] [address] Performed By: #### 2 4331-1, #### [facility] CLIA [id number] [address] [place] [id number] [place] AST [Catalytic activity/Vol] 20 U/L Normal 13-35 [facility] Comment on above: Order Comment: Speci men Type: BLOOD SPECIMEN Ordering Facility: [facility] Address: [address] [place] [address] Performed By: #### 2 4331-1, #### [facility] CLIA [id number] [address] [place] [address] [place] Bilirubin [Mass/Vol] 0.7 mg/dL Normal 0.2-1.3 [facility] Comment on above: Order Comment: Speci men Type: BLOOD SPECIMEN Ordering Facility: [facility] Address: [address] [place] [address] Performed By: #### 2 4331-1, #### [facility] CLIA [id number] [address] [place] [address] [place] Calcium [Mass/Vol] 9.6 mg/dL Normal 8.5-10.2 [facility] Comment on above: Order Comment: Speci men Type: BLOOD SPECIMEN Ordering Facility: [facility] Address: [address] [place] [address] Performed By: #### 2 4331-1, #### [facility] CLIA [id number] [address] [place] [address] [place] Chloride [Moles/Vol] 102 mmol/L Normal 97-105 [facility] Comment on above: Order Comment: Speci men Type: BLOOD SPECIMEN Ordering Facility: [facility] Address: [address] [place] [address] Performed By: #### 2 4331-1, #### [facility] CLIA [id number] [address] [place] [address] [place] CO2 [Moles/Vol] 25 mmol/L Normal 22-30 [facility] Comment on above: Order Comment: Speci men Type: BLOOD SPECIMEN Ordering Facility: [facility] Address: [address] [place] [address] Performed By: #### 2 433-, #### [facility] CLIA [id number] [address] [place] [address] [place] Creatinine [Mass/Vol] 0.72 mg/dL Normal 0.58-0.96 [facility] Comment on above: Order Comment: Speci men Type: BLOOD SPECIMEN Ordering Facility: [facility] Address: [address] [place] [address] Performed By: #### 2 433-, #### [facility] CLIA [id number] [address] [place] [address] [place] Creatinine and Glomerular filtration rate.predicted panel (S/P/Bld) 111 mL/min/1.73m??? Normal >=60 [facility] Comment on above: Order Comment: Speci men Type: BLOOD SPECIMEN Ordering Facility: [facility] Address: [address] [place] [address] Result Comment: Vanessa mated Glomerular Filtration Rate [...] GFR. Performed By: #### 2 4331-1, #### [facility] CLIA [id number] [address] [place] [address] [place] Glucose [Mass/Vol] 80 mg/dL Normal 74-99 [facility] Comment on above: Order Comment: Jacky armendariz Type: BLOOD SPECIMEN Ordering Facility: [facility] Address: [address] [place] [address] Result Comment: The [place] Diabetes Association (ADA) provides guidance for cutoff [...] Standards of Medical Care in Diabetes 2016, [place] Diabetes Association. Diabetes Care. 2016.39(Suppl 1). Performed By: #### 2 4331-1, 80951-8 #### [facility] CLIA [id number] [facility] [place] [address] [place] Potassium [Moles/Vol] 4.3 mmol/L Normal 3.7-5.1 [facility] Comment on above: Order Comment: Jacky armendariz Type: BLOOD SPECIMEN Ordering Facility: [facility] Address: [address] [place] [address] Performed By: #### 2 4331-, #### [facility] CLIA [id number] [facility] [place] [address] [place] Protein [Mass/Vol] 7.5 g/dL Normal 6.3-8.0 [facility] Comment on above: Order Comment: Jacky armendariz Type: BLOOD SPECIMEN Ordering Facility: [facility] Address: [address] [place] [address] Performed By: #### 2 4331-1, #### [facility] CLIA [id number] [address] [place] [address] [place] Sodium [Moles/Vol] 139 mmol/L Normal 136-144 [facility] Comment on above: Order Comment: Speci men Type: BLOOD SPECIMEN Ordering Facility: [facility] Address: [address] [place] [address] Performed By: #### 2 4331-1, 54525-3 #### [facility] CLIA [id number] [address] [place] [address] [place] Urea nitrogen [Mass/Vol] 13 mg/dL Normal 7-21 [facility] Comment on above: Order Comment: Speci men Type: BLOOD SPECIMEN Ordering Facility: [facility] Address: [address] [place] [address] Performed By: #### 2 4331-1, #### [facility] CLIA [id number] [address] [place] [address] [place] Lipid 1996 panelon 3 Cholesterol [Mass/Vol] 279 mg/dL High <200 [facility] Comment on above: Order Comment: Speci men Type: BLOOD SPECIMEN Ordering Facility: [facility] Address: [address] [place] [address] Result Comment: <200 mg/dL, Desirable 200-239 mg/dL, Borderline high >239 mg/dL, High Performed By: #### 2 4331-1, #### [facility] CLIA [id number] [address] [place] [address] [place] Cholesterol in HDL [Mass/Vol] 73 mg/dL Normal >39 [facility] Comment on above: Order Comment: Speci men Type: BLOOD SPECIMEN Ordering Facility: [facility] Address: [address] [place] [address] Result Comment: 40-5 9 mg/dL, Acceptable >59 mg/dL, High: Negative risk factor for coronary heart disease <40 mg/dL, Low: Positive risk factor for coronary heart disease Performed By: #### 2 4331-1, 05488-2 #### [facility] CLIA [id number] [address] [place] [address] [place] Cholesterol in LDL [Mass/Vol] 197 mg/dL High <100 [facility] Comment on above: Order Comment: Jacky armendariz Type: BLOOD SPECIMEN Ordering Facility: [facility] Address: [address] [place] [address] Result Comment: <100 mg/dL, Optimal 100-129 mg/dL, Near optimal/above optimal 130-159 mg/dL, Borderline high 160-189 mg/dL, High >189 mg/dL, Very high Secondary prevention optimal LDL Cholesterol levels are recommended to be < 70 mg/dL Performed By: #### 2 4331-1, 03254-0 #### [facility] CLIA [id number] [address] [place] [address] [place] Cholesterol in LDL/Cholesterol in HDL [Mass ratio] 2.70 {ratio} High <2.54 [facility] Comment on above: Order Comment: Jacky armendariz Type: BLOOD SPECIMEN Ordering Facility: [facility] Address: [address] [place] [address] Result Comment: Refe kevin: 1. National Cholesterol Education Program ATP III Guideline At-A-Glance Quick Desk Reference: National Heart, Lung, and Blood [place]. National Institutes of Health. 2001: NIH Publication No. 01-3305. 2. An International Atherosclerosis Society position paper: global recommendations for the management of dyslipidemia: executive summary, Atherosclerosis. 2014: 232(2):410-413. Performed By: #### 2 4331-1, 66577-9 #### [facility] CLIA [id number] [address] [place], [place] [address] [place] [address] [place] Cholesterol in VLDL [Mass/Vol] 9 mg/dL Normal <30 [facility] Comment on above: Order Comment: Jacky armendariz Type: BLOOD SPECIMEN Ordering Facility: [facility] Address: [address] [place] [address] Performed By: #### 2 4331-1, 09801-3 #### [facility] CLIA [id number] [address] [facility] [id number] [place] Cholesterol non HDL [Mass/Vol] 206 mg/dL High <130 [facility] Comment on above: Order Comment: Speci men Type: BLOOD SPECIMEN Ordering Facility: [facility] Address: [address] [place] [address] Result Comment: <130 mg/dL, Optimal 130-159 mg/dL, Near optimal/above optimal 160-189 mg/dL, Borderline high 190-219 mg/dL, High >219 mg/dL, Very high Secondary prevention optimal non HDL Cholesterol levels are recommended to be <100 mg/dL Performed By: #### 2 4331-1, 28503-7 #### [facility] CLIA [id number] [address] [place] [address] [place] Cholesterol.total/Chol esterol in HDL [Mass ratio] 3.82 {ratio} Normal <5.10 [facility] Comment on above: Order Comment: Speci men Type: BLOOD SPECIMEN Ordering Facility: [facility] Address: [address] [place] [address] Performed By: #### 2 4331-1, 50205-6 #### [facility] CLIA [id number] [address] [place] [address] [place] FASTING TIME 14 hrs Normal [facility] Comment on above: Order Comment: Speci men Type: BLOOD SPECIMEN Ordering Facility: [facility] Address: [address] [place] [address] Performed By: #### 2 4331-1, 08761-3 #### [facility] CLIA [id number] [address] [place] [address] [place] Triglyceride [Mass/Vol] 43 mg/dL Normal <150 [facility] Comment on above: Order Comment: Speci men Type: BLOOD SPECIMEN Ordering Facility: [facility] Address: [address] [place] [address] Result Comment: <150 mg/dL, Normal 150-199 mg/dL, Borderline high 200-499 mg/dL, High >499 mg/dL, Very high Performed By: #### 2 4331-1, 19006-3 #### [facility] CLIA [id number] [address] [place] [address] [place] [facility] CNOVon 12-26-2022 CNOV Office Visit (FAMPWS ) BRIGID BELLA ([id number]) 1985 F Date Time Provider Department 12/26/22 [...] which included preparing to see the patient, [id number] patient care, completing clinical documentation, obtaining and/or [...] care [Z76.89] Depression screening [Z13.31] Order(s):DEPRESSION SCREENING/ASSESSMENT [[id number]] Order (more content not included)... Normal [facility] Absolute lymphocyte countOrd ered By: Trish Murray on 06-17-2022 Lymphocytes Auto (Unsp spec) [#/Vol] 2.93 10*3/uL 0.83-4.51 [facility] Basophil percentageOrdered B y: Trish Murray on 06-17-2022 Basophils/100 WBC (Bld) 0.2 % 0-1 [facility] Eosinophils/100 WBC (Bld) 0.7 % 0-5 [facility] Neutrophils (Bld) [#/Vol] 6.9 10*3/uL 2.0-7.7 [facility] Neutrophils/100 WBC (Bld) 62.7 % 47-70 [facility] WBC (Bld) [#/Vol] 10.9 10*3/uL 4.4-11.0 [facility] Blood erythrocytes count (nu mber/volume)Ordered By: Trish Murray on 06-17-2022 RBC (Bld) [#/Vol] 4.03 10*6/uL 4.2-5.4 [facility] Blood hemoglobin measurement (mass/volume)Ordered By: Trish Murray on 06-17-2022 Hemoglobin (Bld) [Mass/Vol] 12.3 g/dL 12.0-15.0 [facility] Blood lymphocytes/100 leukoc ytesOrdered By: Trish Murray on 06-17-2022 Lymphocytes/100 WBC (Bld) 26.8 % 19-41 [facility] Blood monocytes/100 leukocyt esOrdered By: Trish Murray on 06-17-2022 Monocytes/100 WBC (Bld) 9.2 % 0-10 [facility] Blood platelet mean volumeOr dered By: Trish Murray on 06-17-2022 Platelet mean volume (Bld) [Entitic vol] 12.9 fL 6.2-12.0 [facility] Determination of erythrocyte mean corpuscular volume (MCV)Ordered By: Trish Murray on 06-17-2022 MCV (RBC) [Entitic vol] 91.6 fL 81-99 [facility] Hematocrit Auto (Bld) [Volum e fraction]Ordered By: Trish Murray on 06-17-2022 Hematocrit (Bld) [Volume fraction] 36.9 % 37-47 [facility] - Hematology and Cell countsOrdered By: Trish Murray on 06-17-2022 Erythrocyte distribution width (RBC) [Entitic vol] 45.1 fL 35.1-43.9 [facility] Erythrocyte distribution width (RBC) [Ratio] 13.4 % 11.6-14.6 [facility] Immature granulocytes/100 WBC (Bld) 0.400 % 0.0-0.9 [facility] Comment on above: IG% - Immature Granu locytes (promyelocytes, myelocytes and metamyelocytes) > 1% indicates that a LEFT SHIFT is Present. MCH (RBC) [Entitic mass] 30.5 pg 27.0-32.0 [facility] Nucleated RBC/100 WBC (Bld) [Ratio] 0 % 0-5 [facility] MCHC Auto (RBC) [Mass/Vol]Or dered By: Trish Murray on 06-17-2022 MCHC (RBC) [Mass/Vol] 33.3 g/dL 32-36 [facility] Platelets bldOrdered By: Jossy Murray on 06-17-2022 Platelets (Bld) [#/Vol] 206 10*3/uL 150-450 [facility] - Chemistry and C hemistry - challengeon 06-13-2022 Glucose Ql (U) Negative [facility] - Urinalysison Protein Ql (U) Negative [facility] - Chemistry and C hemistry - challengeon 05-30-2022 Glucose Ql (U) Negative [facility] - Urinalysison Protein Ql (U) Negative [facility] No Panel InformationOrdered By: Dr. Mcconnell on 05-27-2022 Group B Streptococcus Culture Group B Beta Streptococcus is not isolated. [facility] Absolute lymphocyte countOrd ered By: Dr. Polk on 05-23-2022 Lymphocytes Auto (Unsp spec) [#/Vol] 1.93 10*3/uL 0.83-4.51 [facility] Basophil percentageOrdered B y: Dr. Polk on 05-23-2022 Basophils/100 WBC (Bld) 0.2 % 0-1 [facility] Eosinophils/100 WBC (Bld) 0.8 % 0-5 [facility] Neutrophils (Bld) [#/Vol] 7.6 10*3/uL 2.0-7.7 [facility] Neutrophils/100 WBC (Bld) 71.6 % 47-70 [facility] WBC (Bld) [#/Vol] 10.6 10*3/uL 4.4-11.0 [facility] Blood erythrocytes count (nu mber/volume)Ordered By: Dr. Polk on 05-23-2022 RBC (Bld) [#/Vol] 3.97 10*6/uL 4.2-5.4 [facility] Blood hemoglobin measurement (mass/volume)Ordered By: Dr. Polk on 05-23-2022 Hemoglobin (Bld) [Mass/Vol] 12.0 g/dL 12.0-15.0 [facility] Blood lymphocytes/100 leukoc ytesOrdered By: Dr. Polk on 05-23-2022 Lymphocytes/100 WBC (Bld) 18.1 % 19-41 [facility] Blood monocytes/100 leukocyt esOrdered By: Dr. Polk on 05-23-2022 Monocytes/100 WBC (Bld) 8.7 % 0-10 [facility] Blood platelet mean volumeOr dered By: Dr. Polk on 05-23-2022 Platelet mean volume (Bld) [Entitic vol] 11.6 fL 6.2-12.0 [facility] Determination of erythrocyte mean corpuscular volume (MCV)Ordered By: Dr. Polk on 05-23-2022 MCV (RBC) [Entitic vol] 90.9 fL 81-99 [facility] Hematocrit Auto (Bld) [Volum e fraction]Ordered By: Dr. Polk on 05-23-2022 Hematocrit (Bld) [Volume fraction] 36.1 % 37-47 [facility] - Chemistry and C hemistry - challengeon 05-23-2022 Glucose Ql (U) Negative [facility] - Hematology and Cell countsOrdered By: Dr. Polk on 05-23-2022 Erythrocyte distribution width (RBC) [Entitic vol] 45.3 fL 35.1-43.9 [facility] Erythrocyte distribution width (RBC) [Ratio] 13.5 % 11.6-14.6 [facility] Immature granulocytes/100 WBC (Bld) 0.600 % 0.0-0.9 [facility] Comment on above: IG% - Immature Granu locytes (promyelocytes, myelocytes and metamyelocytes) > 1% indicates that a LEFT SHIFT is Present. MCH (RBC) [Entitic mass] 30.2 pg 27.0-32.0 [facility] Nucleated RBC/100 WBC (Bld) [Ratio] 0 % 0-5 [facility] - Urinalysison Protein Ql (U) Negative [facility] MCHC Auto (RBC) [Mass/Vol]Or dered By: Dr. Polk on 05-23-2022 MCHC (RBC) [Mass/Vol] 33.2 g/dL 32-36 [facility] Platelets bldOrdered By: Dr. Polk on 05-23-2022 Platelets (Bld) [#/Vol] 236 10*3/uL 150-450 [facility] - Chemistry and C hemistry - challengeon 05-09-2022 Glucose Ql (U) Negative [facility] - Urinalysison Protein Ql (U) Negative [facility] - Chemistry and C hemistry - challengeon 04-24-2022 Glucose Ql (U) Negative [facility] - Urinalysison Protein Ql (U) Negative [facility] - Chemistry and C hemistry - challengeon 04-07-2022 Glucose Ql (U) Negative [facility] - Urinalysison Protein Ql (U) Negative [facility] Absolute lymphocyte countOrd ered By: Dr. Polk on 03-21-2022 Lymphocytes Auto (Unsp spec) [#/Vol] 1.68 10*3/uL 0.83-4.51 [facility] Basophil percentageOrdered B y: Dr. Polk on 03-21-2022 Basophils/100 WBC (Bld) 0.2 % 0-1 [facility] Eosinophils/100 WBC (Bld) 0.7 % 0-5 [facility] Neutrophils (Bld) [#/Vol] 7.8 10*3/uL 2.0-7.7 [facility] Neutrophils/100 WBC (Bld) 74.5 % 47-70 [facility] WBC (Bld) [#/Vol] 10.5 10*3/uL 4.4-11.0 [facility] Blood erythrocytes count (nu mber/volume)Ordered By: Dr. Polk on 03-21-2022 RBC (Bld) [#/Vol] 3.35 10*6/uL 4.2-5.4 [facility] Blood hemoglobin measurement (mass/volume)Ordered By: Dr. Polk on 03-21-2022 Hemoglobin (Bld) [Mass/Vol] 10.4 g/dL 12.0-15.0 [facility] Blood lymphocytes/100 leukoc ytesOrdered By: Dr. Polk on 03-21-2022 Lymphocytes/100 WBC (Bld) 16.1 % 19-41 [facility] Blood monocytes/100 leukocyt esOrdered By: Dr. Polk on 03-21-2022 Monocytes/100 WBC (Bld) 8.1 % 0-10 [facility] Blood platelet mean volumeOr dered By: Dr. Polk on 03-21-2022 Platelet mean volume (Bld) [Entitic vol] 10.9 fL 6.2-12.0 [facility] Determination of erythrocyte mean corpuscular volume (MCV)Ordered By: Dr. Polk on 03-21-2022 MCV (RBC) [Entitic vol] 90.4 fL 81-99 [facility] Gestational diabetes screen 1-hour screen with 50g oral glucose loadOrdered By: Dr. Polk on 03-21-2022 Glucose 1 Hr post 50 g glucose PO [Mass/Vol] 92 mg/dL 70-140 [facility] Hematocrit Auto (Bld) [Volum e fraction]Ordered By: Dr. Polk on 03-21-2022 Hematocrit (Bld) [Volume fraction] 30.3 % 37-47 [facility] - Chemistry and C hemistry - challengeon 03-21-2022 Glucose Ql (U) Negative [facility] - Hematology and Cell countsOrdered By: Dr. Polk on 03-21-2022 Erythrocyte distribution width (RBC) [Entitic vol] 40.5 fL 35.1-43.9 [facility] Erythrocyte distribution width (RBC) [Ratio] 12.4 % 11.6-14.6 [facility] Immature granulocytes/100 WBC (Bld) 0.400 % 0.0-0.9 [facility] Comment on above: IG% - Immature Granu locytes (promyelocytes, myelocytes and metamyelocytes) > 1% indicates that a LEFT SHIFT is Present. MCH (RBC) [Entitic mass] 31.0 pg 27.0-32.0 [facility] Nucleated RBC/100 WBC (Bld) [Ratio] 0 % 0-5 [facility] Laboratory - Urinalysison Protein Ql (U) Negative [facility] MCHC Auto (RBC) [Mass/Vol]Or dered By: Dr. Polk on 03-21-2022 MCHC (RBC) [Mass/Vol] 34.3 g/dL 32-36 [facility] Platelets bldOrdered By: Dr. Polk on 03-21-2022 Platelets (Bld) [#/Vol] 241 10*3/uL 150-450 [facility] Laboratory - Chemistry and C hemistry - challengeon 01-24-2022 Glucose Ql (U) Negative [facility] Work Phone: Laboratory - Urinalysison Protein Ql (U) Negative [facility] Work Phone: No Panel Informationon 01-24 Toxoplasma Comment Comment . [facility] Work Phone: Comment on above: It is presumed the p atient has not been infected with andis not undergoing an acute infection with Toxoplasma. Ifsymptoms persist, submit a new specimen after three weeks. Serum Toxoplasma gondii IgG antibody assay (units/volume)on 01-24-2022 T. gondii IgG Qn (S) < 3.0 IU/mL 0.0-7.1 [facility] Work Phone: Comment on above: Negative <7.2 Equivo олег 7.2 - 8.7 Positive >8.7Performed at: [facility] [id number] Director: Kwabena Cifuentes PhD, Phone: [phone] Serum Toxoplasma gondii IgM antibody assay by immunoassay (units/volume)on 01-24-2022 T. gondii IgM IA Qn (S) < 3.0 AU/mL 0.0-7.9 [facility] Work Phone: Comment on above: Negative <8.0 Equivo олег 8.0 - 9.9 Positive >9.9 Serum or plasma cytomegalovi rick (CMV) IgG antibody assay (units/volume)on 01-24-2022 CMV IgG Qn < 0.60 U/mL 0.00-0.59 [facility] Work Phone: Comment on above: Negative <0.60 Equiv ocal 0.60 - 0.69 Positive >0.69 Serum or plasma cytomegalovi rick (CMV) IgM antibody assay (units/volume)on 01-24-2022 CMV IgM Qn < 30.0 AU/mL 0.0-29.9 [facility] Work Phone: Comment on above: Negative <30.0 Equiv ocal 30.0 - 34.9 Positive >34.9A positive result is generally indicative of acuteinfection, reactivation or persistent IgM production.Performed at: - [facility] [id number] Director: Kwabena Cifuentes PhD, Phone: [phone] UA DIP, URINE (POC)on 2021 BILIRUBIN UA (POCT) Negative Negative [facility] CLARITY UA (POCT) Clear [facility] COLOR UA (POCT) Yellow [facility] GLUCOSE UA (POCT) Negative Negative mg/dL [facility] HEMOGLOBIN/BLOOD UA (POCT) Negative Negative [facility] KETONE UA (POCT) Negative Negative mg/dL [facility] LEUKOCYTES UA (POCT) Negative Negative [facility] NITRITE UA (POCT) Negative Negative [facility] PH UA (POCT) 6.5 4.5 - 8.0 [facility] Protein Ql (U) Negative Negative mg/dL [facility] SPECIFIC GRAVITY UA (POCT) <=1.005 Abnormal 1.005 - 1.030 [facility] UROBILINOGEN UA (POCT) 0.2 E.U./dL Dianne l E.U./dL [facility] Laboratory - Chemistry and C hemistry - challengeon 12-20-2021 Glucose Ql (U) Negative [facility] Work Phone: Laboratory - Urinalysison Protein Ql (U) Negative [facility] Work Phone: Absolute lymphocyte counton 12-06-2021 Lymphocytes Auto (Unsp spec) [#/Vol] 1.77 10*3/uL 0.83-4.51 [facility] Work Phone: Basophil percentageon 2021 Basophils/100 WBC (Bld) 0.2 % 0-1 [facility] Work Phone: Eosinophils/100 WBC (Bld) 0.8 % 0-5 [facility] Work Phone: Neutrophils (Bld) [#/Vol] 7.4 10*3/uL 2.0-7.7 [facility] Work Phone: Neutrophils/100 WBC (Bld) 74.1 % 47-70 [facility] Work Phone: WBC (Bld) [#/Vol] 10.0 10*3/uL 4.4-11.0 [facility] Work Phone: Blood erythrocytes count (nu mber/volume)on 12-06-2021 RBC (Bld) [#/Vol] 4.26 10*6/uL 4.2-5.4 [facility] Work Phone: Blood hemoglobin measurement (mass/volume)on 12-06-2021 Hemoglobin (Bld) [Mass/Vol] 12.9 g/dL 12.0-15.0 [facility] Work Phone: Blood lymphocytes/100 leukoc yteson 12-06-2021 Lymphocytes/100 WBC (Bld) 17.8 % 19-41 [facility] Work Phone: Blood monocytes/100 leukocyt eson 12-06-2021 Monocytes/100 WBC (Bld) 6.6 % 0-10 [facility] Work Phone: Blood platelet mean volumeon 12-06-2021 Platelet mean volume (Bld) [Entitic vol] 11.3 fL 6.2-12.0 [facility] Work Phone: Determination of erythrocyte mean corpuscular volume (MCV)on 12-06-2021 MCV (RBC) [Entitic vol] 90.1 fL 81-99 [facility] Work Phone: HIV 1 and HIV-2 antibody ass ay with HIV-1 p24 antigen detectionon 12-06-2021 HIV 1+2 Ab+HIV1 p24 Ag IA Ql Non-Reactive Nonreactive [facility] Work Phone: Hematocrit Auto (Bld) [Volum e fraction]on 12-06-2021 Hematocrit (Bld) [Volume fraction] 38.4 % 37-47 [facility] Work Phone: Laboratory - Hematology and Cell countson 12-06-2021 Erythrocyte distribution width (RBC) [Entitic vol] 41.9 fL 35.1-43.9 [facility] Work Phone: Erythrocyte distribution width (RBC) [Ratio] 13.0 % 11.6-14.6 [facility] Work Phone: Immature granulocytes/100 WBC (Bld) 0.500 % 0.0-0.9 [facility] Work Phone: Comment on above: IG% - Immature Granu locytes (promyelocytes, myelocytes and metamyelocytes) > 1% indicates that a LEFT SHIFT is Present. MCH (RBC) [Entitic mass] 30.3 pg 27.0-32.0 [facility] Work Phone: Nucleated RBC/100 WBC (Bld) [Ratio] 0 % 0-5 [facility] Work Phone: MCHC Auto (RBC) [Mass/Vol]on 12-06-2021 MCHC (RBC) [Mass/Vol] 33.6 g/dL 32-36 [facility] Work Phone: No Panel Informationon 12-06 Hepatitis B Surface Antigen Non-Reactive Nonreactive [facility] Work Phone: Hepatitis C Antibody Non-Reactive Nonreactive [facility] Work Phone: Comment on above: Non Reactive: < 0.8 Equivocal: >/= 0.8 to < 1.0 Reactive: >/= 1.0The CDC recommends that a reactive/equivocal HCV antibody result be followed up by the HCV Nucleic Acid Amplificationtest (895698) Miscellaneous Test Comment MAILED SPECIMEN [facility] Work Phone: Rubella IgG Antibody Reactive Nonreactive [facility] Work Phone: Comment on above: Antibody Results Int erpretation of Immune Status Non Reactive Presumed Non-Immune Equivocal Equivocal Reactive Presumed Immune Platelets bldon 12-06-2021 Platelets (Bld) [#/Vol] 300 10*3/uL 150-450 [facility] Work Phone: Serum Treponema species anti body detectionon 12-06-2021 Treponema sp Ab Ql (S) Non-Reactive [facility] Work Phone: Chlamydia trachomatis rRNA d etection by probe and target amplification methodon 11-21-2021 C. trachomatis rRNA SINA+probe Ql (Unsp spec) Negative Negative [facility] Work Phone: Laboratory - Drug toxicology on 11-21-2021 Amphetamines Ql (U) Negative <1000 ng/mL [facility] Work Phone: Benzodiazepines Ql (U) Negative < 200 ng/mL [facility] Work Phone: Cannabinoids Screen Ql (U) Negative < 50 ng/mL [facility] Work Phone: Cocaine Ql (U) Negative < 300 ng/mL [facility] Work Phone: Opiates Ql (U) Negative < 300 ng/mL [facility] Work Phone: Laboratory - Microbiology an d Antimicrobial susceptibilityon 11-21-2021 N. gonorrhoeae DNA SINA+probe Ql (Unsp spec) Negative Negative [facility] Work Phone: Comment on above: Performed at: =[address] [id number] Director: Maya Barrett MD, Phone: [phone] No Panel Informationon 11-21 MDMA (Ecstasy) Screen Negative < 500 ng/mL [facility] Work Phone: Urine Barbiturates Screen Negative < 200 ng/mL [facility] Work Phone: Urine Drug Screen Comment [facility] Work Phone: Comment on above: CONFIRMATORY [...] Urine Methadone Screen Negative < 300 ng/mL [facility] Work Phone: Urine phencyclidine (PCP) de tectionon 11-21-2021 Phencyclidine Ql (U) Negative < 25 ng/mL [facility] Work Phone: CBC with differentialon 10-03 BASO # 0.1 K CUMM Normal 0.0-0.2 [facility] Comment on above: Order Comment: Items in this order include: Comprehensive Metabolic Panel, Lipid Panel, Vit D 25 [place] (Total), CBC with differential, , Testing Performed By: [facility] [place] [address] Dr. Kathy Jhaveri, Website Designer Performed By: #### C 215, C3763, C47, C8 #### [facility] [address] [place] [address] Rd [address] [place] [address] Basophils/100 WBC (Bld) 0.6 % Normal 0.0-3.0 [facility] Comment on above: Order Comment: Items in this order include: Comprehensive Metabolic Panel, Lipid Panel, Vit D 25 [place] (Total), CBC with differential, , Testing Performed By: [facility] [address] [place] [address]. [place] [address] Dr. Kathy Jhaveri, Website Designer Performed By: #### C 215, C3763, C47, C8 #### [facility] [address] [place] [address] [address] [place] [address] EOS # 0.1 K CUMM Normal 0.0-0.4 [facility] Comment on above: Order Comment: Items in this order include: Comprehensive Metabolic Panel, Lipid Panel, Vit D 25 [place] (Total), CBC with differential, , Testing Performed By: [facility] [address] [place] [address]. [place] [address] Dr. Kathy Jhaveri, Website Designer Performed By: #### C 215, C3763, C47, C8 #### [facility] [address] [place] [address] [address] [place] [address] Eosinophils/100 WBC (Bld) 0.9 % Normal 0.0-7.0 [facility] Comment on above: Order Comment: Items in this order include: Comprehensive Metabolic Panel, Lipid Panel, Vit D 25 [place] (Total), CBC with differential, , Testing Performed By: [facility] [address] [place] [address]. [place] [id number] Dr. Kathy Jhaveri, Website Designer Performed By: #### C 215, C3763, C47, C8 #### [facility], [facility]. [address] [place] [address] [address] [place] [address] Erythrocyte distribution width (RBC) [Ratio] 13.1 % Normal 11.5-15.5 [facility] Comment on above: Order Comment: Items in this order include: Comprehensive Metabolic Panel, Lipid Panel, Vit D 25 [place] (Total), CBC with differential, , Testing Performed By: [facility] [address] [place] [address] Dr. Kathy Jhaveri, Website Designer Performed By: #### C 215, C3763, C47, C8 #### [facility], [facility]. [address] [place] [address] [address] [place] [address] Hematocrit (Bld) [Volume fraction] 39.5 % Normal 37.0-47.0 [facility] Comment on above: Order Comment: Items in this order include: Comprehensive Metabolic Panel, Lipid Panel, Vit D 25 [place] (Total), CBC with differential, , Testing Performed By: [facility] [address] [place] [address]. [place] [address] Dr. Kathy Jhaveri, Website Designer Performed By: #### C 215, [id number], C47, C8 #### [facility], [facility]. [address] [place] [address] [address] [place] [address] Hemoglobin (Bld) [Mass/Vol] 12.6 g/dL Normal 11.5-15.5 [facility] Comment on above: Order Comment: Items in this order include: Comprehensive Metabolic Panel, Lipid Panel, Vit D 25 [place] (Total), CBC with differential, , Testing Performed By: [facility] [address] [place] [address]. [place] [address] Dr. Kathy Jhaveri, Website Designer Performed By: #### C 215, C3763, C47, C8 #### [facility] [address] [place] [address] [address] [place] [address] ImmGrn # 0.0 K CUMM Normal 0.0-0.3 [facility] Comment on above: Order Comment: Items in this order include: Comprehensive Metabolic Panel, Lipid Panel, Vit D 25 [place] (Total), CBC with differential, , Testing Performed By: [facility] [address] [place] [address]. [place] [address] Dr. Kathy Jhaveri, Website Designer Performed By: #### C 215, C3763, C47, C8 #### [facility], [facility]. [address] [place] [address] [address] [place] [address] ImmGrn % 0.3 % Normal 0.0-3.0 [facility] Comment on above: Order Comment: Items in this order include: Comprehensive Metabolic Panel, Lipid Panel, Vit D 25 [place] (Total), CBC with differential, , Testing Performed By: [facility] [address] [place] [address]. [place] [address] Dr. Kathy Jhaveri, Website Designer Performed By: #### C 215, [id number], C47, C8 #### [facility], [facility]. [address] [place] [address] [address] [place] [address] LYMPH # 2.0 K CUMM Normal 0.7-4.5 [facility] Comment on above: Order Comment: Items in this order include: Comprehensive Metabolic Panel, Lipid Panel, Vit D 25 [place] (Total), CBC with differential, , Testing Performed By: [facility] [address] [place] [address]. [place] [address] Dr. Kathy Jhaveri, Website Designer Performed By: #### C 215, [id number], C47, C8 #### [facility], [facility]. [address] [place] [address] [address] [place] [address] Lymphocytes/100 WBC (Bld) 25.7 % Normal 14.0-46.0 [facility] Comment on above: Order Comment: Items in this order include: Comprehensive Metabolic Panel, Lipid Panel, Vit D 25 [place] (Total), CBC with differential, , Testing Performed By: [facility] [address] [place] [address]. [place] [address] Dr. Kathy Jhaveri, Website Designer Performed By: #### C 215, [id number], C47, C8 #### [facility] [address] [place] [address] [address] [place] [address] MCH (RBC) [Entitic mass] 29.3 pg Normal 27.0-31.0 [facility] Comment on above: Order Comment: Items in this order include: Comprehensive Metabolic Panel, Lipid Panel, Vit D 25 [place] (Total), CBC with differential, , Testing Performed By: [facility] [address] [place] [address] Dr. Kathy Jhaveri, Website Designer Performed By: #### C 215, [id number], C47, C8 #### [facility], [facility]. [address] [place] [address] [address] [place] [address] MCHC (RBC) [Mass/Vol] 31.9 g/dL Low 32.0-36.0 [facility] Comment on above: Order Comment: Items in this order include: Comprehensive Metabolic Panel, Lipid Panel, Vit D 25 [place] (Total), CBC with differential, , Testing Performed By: [facility] [address] [place] [address] [address] Kathy Jhaveri, Website Designer Performed By: #### C 215, [id number], C47, C8 #### [facility], [facility]. [address] [place] [address] [address] [place] [address] MCV (RBC) [Entitic vol] 91.9 fL Normal 78.0-100.0 [facility] Comment on above: Order Comment: Items in this order include: Comprehensive Metabolic Panel, Lipid Panel, Vit D 25 [place] (Total), CBC with differential, , Testing Performed By: [facility] [address] [place] [address]. [place] [address] Dr. Kathy Jhaveri, Website Designer Performed By: #### C 215, C3763, C47, C8 #### [facility] [address] [place] [address] [address] [place] [address] MONO # 0.6 K CUMM Normal 0.1-1.0 [facility] Comment on above: Order Comment: Items in this order include: Comprehensive Metabolic Panel, Lipid Panel, Vit D 25 [place] (Total), CBC with differential, , Testing Performed By: [facility] [address] [place] [address] [address] Kathy Jhaveri, Website Designer Performed By: #### C 215, C3763, C47, C8 #### [facility] [address] [place] [address] [address] [place] [address] Monocytes/100 WBC (Bld) 7.7 % Normal 4.0-13.0 [facility] Comment on above: Order Comment: Items in this order include: Comprehensive Metabolic Panel, Lipid Panel, Vit D 25 [place] (Total), CBC with differential, , Testing Performed By: [facility] [address] [place] [address] [address] [address] Kathy Jhaveri, Website Designer Performed By: #### C 215, [id number], C47, C8 #### [facility], [facility]. [address] [place] [address] [address] [place] [address] TOMI # 5.0 K CUMM Normal 1.8-7.8 [facility] Comment on above: Order Comment: Items in this order include: Comprehensive Metabolic Panel, Lipid Panel, Vit D 25 [place] (Total), CBC with differential, , Testing Performed By: [facility] [address] [place] [address] [address] Kathy Jhaveri, Website Designer Performed By: #### C 215, [id number], C47, C8 #### [facility], [facility]. [address] [place] [address] [address] [place] [address] Neutrophils/100 WBC (Bld) 64.8 % Normal 40.0-74.0 [facility] Comment on above: Order Comment: Items in this order include: Comprehensive Metabolic Panel, Lipid Panel, Vit D 25 [place] (Total), CBC with differential, , Testing Performed By: [facility] [place] [address] Dr. Kathy Jhaveri, Website Designer Performed By: #### C 215, C3763, C47, C8 #### [facility] [address] [place] [address] Platelet mean volume (Bld) [Entitic vol] 12.4 fL Normal 8.9-12.6 [facility] Comment on above: Order Comment: Items in this order include: Comprehensive Metabolic Panel, Lipid Panel, Vit D 25 [place] (Total), CBC with differential, , Testing Performed By: [facility] [address] [place] [address]. [place] [address] Dr. Kathy Jhaveri, Website Designer Performed By: #### C 215, C3763, C47, C8 #### [facility] [address] [place] [address] [place] [address] PLT 292 K CUMM Normal 130-400 [facility] Comment on above: Order Comment: Items in this order include: Comprehensive Metabolic Panel, Lipid Panel, Vit D 25 [place] (Total), CBC with differential, , Testing Performed By: [facility] [address] [place] [address]. [place] [address] Dr. Kathy Jhaveri, Website Designer Performed By: #### C 215, [id number], C47, C8 #### [facility] [address] [place] [address] [address] [place] [address] RBC 4.30 M CUMM Normal 3.80-5.10 [facility] Comment on above: Order Comment: Items in this order include: Comprehensive Metabolic Panel, Lipid Panel, Vit D 25 [place] (Total), CBC with differential, , Testing Performed By: [facility] [address] [place] [address]. [place] [address] Dr. Kathy Jhaveri, Website Designer Performed By: #### C 215, C3763, C47, C8 #### [facility] [address] [place] [address] WBC 7.8 K CUMM Normal 3.8-10.6 [facility] Comment on above: Order Comment: Items in this order include: Comprehensive Metabolic Panel, Lipid Panel, Vit D 25 [place] (Total), CBC with differential, , Testing Performed By: [facility] [address] [place] [address]. [place] [address] Dr. Kathy Jhaveri, Website Designer Performed By: #### C 215, [id number], C47, C8 #### [facility] [address] [place] [address] [address] [place] [address] Comprehensive Metabolic Pane josé manuel 10-25-2020 Albumin [Mass/Vol] 4.9 g/dL Normal 3.5-5.0 [facility] Comment on above: Order Comment: Items in this order include: Comprehensive Metabolic Panel, Lipid Panel, Vit D 25 [place] (Total), CBC with differential, , Testing Performed By: [facility] [address] [place] [address]. [place] [address] Dr. Kathy Jhaveri, Website Designer Performed By: #### C 215, [id number], C47, C8 #### [facility] [address] [place] [address] [address] [place] [address] Alk Phos 79 U/L Normal 23-159 [facility] Comment on above: Order Comment: Items in this order include: Comprehensive Metabolic Panel, Lipid Panel, Vit D 25 [place] (Total), CBC with differential, , Testing Performed By: [facility] [address] [place] [address]. [place] [address] Dr. Kathy Jhaveri, Website Designer Performed By: #### C 215, [id number], C47, C8 #### [facility] [address] [place] [address] [address] [place] [address] ALT [Catalytic activity/Vol] 18 U/L Normal 0-38 [facility] Comment on above: Order Comment: Items in this order include: Comprehensive Metabolic Panel, Lipid Panel, Vit D 25 [place] (Total), CBC with differential, , Testing Performed By: [facility] [address] [place] [address]. [place] [address] Dr. Kathy Jhaveri, Website Designer Performed By: #### C 215, [id number], C47, C8 #### [facility] [address] [facility] [place] [address] AST [Catalytic activity/Vol] 27 U/L Normal 11-43 [facility] Comment on above: Order Comment: Items in this order include: Comprehensive Metabolic Panel, Lipid Panel, Vit D 25 [place] (Total), CBC with differential, , Testing Performed By: [facility] [address] [place] [address] [address] Kathy Jhaveri, Website Designer Performed By: #### C 215, [id number], C47, C8 #### [facility], [facility]. [address] [place] [address] [place] [address] Bilirubin [Mass/Vol] 0.9 mg/dL Normal 0.2-1.3 [facility] Comment on above: Order Comment: Items in this order include: Comprehensive Metabolic Panel, Lipid Panel, Vit D 25 [place] (Total), CBC with differential, , Testing Performed By: [facility] [address] [place] [address] [address] Kathy Jhaveri, Website Designer Performed By: #### C 215, [id number], C47, C8 #### [facility], [facility]. [address] [place] [address] [place] [address] Calcium [Mass/Vol] 9.9 mg/dL Normal 8.5-10.5 [facility] Comment on above: Order Comment: Items in this order include: Comprehensive Metabolic Panel, Lipid Panel, Vit D 25 [place] (Total), CBC with differential, , Testing Performed By: [facility] [address] [place] [address] Kathy Jhaveri, Website Designer Performed By: #### C 215, [id number], C47, C8 #### [facility], [facility]. [address] [place] [address] [address] [place] [address] Chloride [Moles/Vol] 100 mmol/L Normal 98-107 [facility] Comment on above: Order Comment: Items in this order include: Comprehensive Metabolic Panel, Lipid Panel, Vit D 25 [place] (Total), CBC with differential, , Testing Performed By: [facility] [address] [place] [address]. [place] [address] Dr. Kathy Jhaveri, Website Designer Performed By: #### C 215, [id number], C47, C8 #### [facility], [facility]. [address] [place] [address] [address] [place] [address] CO2 [Moles/Vol] 27.0 mmol/L Normal 21.0-32.0 [facility] Comment on above: Order Comment: Items in this order include: Comprehensive Metabolic Panel, Lipid Panel, Vit D 25 [place] (Total), CBC with differential, , Testing Performed By: [facility] [address] [place] [address] [address] Kathy Jhaveri, Website Designer Performed By: #### C 215, [id number], C47, C8 #### [facility], [facility]. [address] [place] [address] [address] [place] [address] Creatinine [Mass/Vol] 0.7 mg/dL Normal 0.1-1.2 [facility] Comment on above: Order Comment: Items in this order include: Comprehensive Metabolic Panel, Lipid Panel, Vit D 25 [place] (Total), CBC with differential, , Testing Performed By: [facility] [address] [place] [address] Kathy Jhaveri, Website Designer Performed By: #### C 215, [id number], C47, C8 #### [facility], [facility]. [address] [place] [address] [address] [place] [address] GFR 96 mL/min per 1.73 Normal >60 [facility] Comment on above: Order Comment: Items in this order include: Comprehensive Metabolic Panel, Lipid Panel, Vit D 25 [place] (Total), CBC with differential, , Testing Performed By: [facility] [address] [place] [address] [address] Kathy Jhaveri, Website Designer Result Comment: The GFR estimate is not adjusted for race. If the patient's race is -Swedish, the GFR estimate must be multiplied by a factor of 1.21. Performed By: #### C 215, [id number], C47, C8 #### [facility] [address] [facility] [address] [place] [address] Glucose [Mass/Vol] 83 mg/dL Normal 74-100 [facility] Comment on above: Order Comment: Items in this order include: Comprehensive Metabolic Panel, Lipid Panel, Vit D 25 [place] (Total), CBC with differential, , Testing Performed By: [facility] [address] [place] [address]. [place] [address] Dr. Kathy Jhaveri, Website Designer Performed By: #### C 215, [id number], C47, C8 #### [facility], [facility]. [address] [place] [address] [place] [address] Potassium [Moles/Vol] 4.4 mmol/L Normal 3.5-5.3 [facility] Comment on above: Order Comment: Items in this order include: Comprehensive Metabolic Panel, Lipid Panel, Vit D 25 [place] (Total), CBC with differential, , Testing Performed By: [facility] [address] [place] [address]. [place] [address] Dr. Kathy Jhaveri, Website Designer Performed By: #### C 215, [id number], C47, C8 #### [facility], [facility]. [address] [place] [address] [place] [address] Protein [Mass/Vol] 7.5 g/dL Normal 6.3-8.4 [facility] Comment on above: Order Comment: Items in this order include: Comprehensive Metabolic Panel, Lipid Panel, Vit D 25 [place] (Total), CBC with differential, , Testing Performed By: [facility] [address] [place] [id number] Kathy Jhaveri, Website Designer Performed By: #### C 215, C3763, C47, C8 #### [facility], [facility]. [address] [place] [address] [address] [place] [address] Sodium [Moles/Vol] 138 mmol/L Normal 135-145 [facility] Comment on above: Order Comment: Items in this order include: Comprehensive Metabolic Panel, Lipid Panel, Vit D 25 [place] (Total), CBC with differential, , Testing Performed By: [facility] [address] [place] [address]. [place] [address] Dr. Kathy Jhaveri, Website Designer Performed By: #### C 215, C3763, C47, C8 #### [facility] [address] [place] [address] [place] [address] Urea nitrogen [Mass/Vol] 11 mg/dL Normal 6-22 [facility] Comment on above: Order Comment: Items in this order include: Comprehensive Metabolic Panel, Lipid Panel, Vit D 25 [place] (Total), CBC with differential, , Testing Performed By: [facility] [address] [place] [address] Kathy Jhaveri, Website Designer Performed By: #### C 215, C3763, C47, C8 #### [facility] [address] [place] [address] [address] [place] [address] Lipid Panelon 10-25-2020 Cholesterol [Mass/Vol] 242 mg/dL High <200 [facility] Comment on above: Performed By: #### C 215, C3763, C47, C8 #### [facility] [address] [place] [address] [address] [place] [address] Cholesterol in HDL [Mass/Vol] 68 mg/dL Normal >50 [facility] Comment on above: Performed By: #### C 215, C3763, C47, C8 #### [facility] [address] [place] [address] [place] [address] Cholesterol in LDL [Mass/Vol] 160 mg/dL High <130 [facility] Comment on above: Performed By: #### C 215, C3763, C47, C8 #### [facility] [address] [place] [address] [place] [address] Cholesterol.total/Chol esterol in HDL [Mass ratio] 3.6 {ratio} Normal <4.0 [facility] Comment on above: Performed By: #### C 215, C3763, C47, C8 #### [facility] [address] [facility] [place] [address] Non-HDL Chol 174 Normal LDL Goal + 30 [facility] Comment on above: Result Comment: LDL and Non-HDL goal dependent upon individual risk Performed By: #### C 215, C3763, C47, C8 #### [facility] [address] [facility] [place] [address] Triglyceride [Mass/Vol] 69 mg/dL Normal <150 [facility] Comment on above: Performed By: #### C 215, C3763, C47, C8 #### [facility] [address] [place] [address] [address] [place] [address] VLDL-Calc 14 mg/dl Normal <30 [facility] Comment on above: Performed By: #### C 215, C3763, C47, C8 #### [facility] [address] [place] [address] [address] [place] [address] Vit D 25 [place] (Total)on 2020 Vit D 25 [place] (Total) 32.7 ng/ml Normal 31.0-100.0 [facility] Comment on above: Order Comment: Items in this order include: Comprehensive Metabolic Panel, Lipid Panel, Vit D 25 [place] (Total), CBC with differential, , Testing Performed By: [facility] [address] [place] [address]. [place] [address] Dr. Kathy Jhaveri, Website Designer Result Comment: Defi ciency <10 ng/ml Insufficiency 10-30 ng/ml Sufficiency 31-100 ng/ml Toxicity >100 ng/ml Performed By: #### C 215, C3763, C47, C8 #### [facility] [address] [place] [address] [place] [address] Patient Summaryon 01-10-2020 Patient Summary PATIENT DISCHARGE INSTRUCTIONS If you are having an emergency and are not able to reach your physician, CALL 911 or go to the nearest emergency room and take this document with you. [facility] 01/10/20 11:23 [address] [place]. [address] PATIENT INFORMATION Name: BRIGID BELLA Address: [address] [place] [id number] Age: 34 Years Phone: [phone] : 1985 12:00 MRN: [id number] Sex: Female Race: White Ethnicity: Not Hispan/Lat Admitted From: Clinic or [facility] Medical Service: Obstetric Nurse Unit/Bed: (ID) [facility] 2I30-20 Admit Date: 01/08/2020 13:46 PCP: Physician, PCP [...] doses are changed, or new medications (including vkcm-smc-inwfbzg products) are added. Ask your doctor if [...] suicide hotline, anytime day or night, at [phone]-FFJV. It's easy to sign up for [facility]: 1. Visit [email or web address] [email or web address] 2. Click on [place] for Vdolg 3. Verify your identity by entering your [...] your account, you'll be redirected to the [employer] login page. Login and check to see your results Questions? For help with account enrollment, call [facility] Customer Support at [phone] (toll-free) PATIENT EDUCATION Discharge Instructions for Mother [...] cracked, blistered or bleeding, call outpatient at [phone] ([phone]) for help. 5. Care of Perineum following [...] until 12 months or longer. ?? Call [phone] ([phone]) if any questions or concerns with ?? [...] delivery ? Depression ?Jaundice ?Domestic Violence Resources ?[facility] [place] Screening ?[facility] Hearing Development information ?[facility] Safe Sleep Environment Screening ?[facility] Screening Brochure ??A Sound Beginning??. ?Shaken [...] information, talk with your doctor or call [phone] ( ). I have received a copy [...] you go home. HOME CARE INSTRUCTIONS ???Take zokc-jci-akevjis or prescription medicines only as directed by [...] Document Reviewed: 12/15/2012 Elsevier Interactive Patient Education ?2015 Elsevier Inc. PATIENT DISCHARGE INSTRUCTION Signature Page for: BRIGID BELLA Date/Time: 01/10/2020 11:23:37 A Clinician has explained the information on my discharge instructions and has provided me with a copy. My questions have been answered to my satisfaction. Patient Signature Date/Time Responsible Party Date/Time Relationship to Patient Clinician Signature Date/Time Normal [facility] Syphilis Screenon 01-09-2020 T. pallidum Ab IA Ql (S) NONREAC Normal NONREAC [facility] Comment on above: Result Comment: No s erologic evidence of syphilis. Performed By: #### 3 9231-6 #### [facility] [address] [place] [address] Antibody Screen Interpretati on (T+S Compon 01-08-2020 Interpretation and review of laboratory results Negative Normal NEGATIVE-NEG ATIVE [facility] Comment on above: Performed By: #### 8 90-4, 882-1x1 #### JAYDEN REAL, [address] [place]. Blood Typing ABO + Rh(D)on 0 01-08-2020 ABO and Rh group Nom (Bld) ABPOS Normal [facility] Comment on above: Performed By: #### 8 90-4, 882-1x1 #### JAY[facility] REAL, [address] [facility]. CBCon 01-08-2020 Erythrocyte distribution width (RBC) [Entitic vol] 12.6 % Normal 11.0-14.8 [facility] Comment on above: Performed By: #### 2 4317-0 #### [facility], [address], [place]. Hematocrit (Bld) [Volume fraction] 35.4 % Normal 35.0-45.0 [facility] Comment on above: Performed By: #### 2 7-0 #### [facility], [address], [place]. Hemoglobin (Bld) [Mass/Vol] 11.9 g/dL Low 12.0-16.0 [facility] Comment on above: Performed By: #### 2 7-0 #### [facility], [facility] [address], [place]. MCH (RBC) [Entitic mass] 30.6 Picograms Normal 27.0-34.0 [facility] Comment on above: Performed By: #### 2 7-0 #### [facility], [facility] [address] [facility] [address], [place]. MCHC (RBC) [Mass/Vol] 33.7 g/dL Normal 32.0-36.0 [facility] Comment on above: Performed By: #### 2 4317-0 #### [facility], [address], [place]. MCV (RBC) [Entitic vol] 91.0 fL Normal 80.0-97.0 [facility] Comment on above: Performed By: #### 2 4317-0 #### [facility], [address], [place]. Platelet mean volume (Bld) [Entitic vol] 12.1 fL Normal 6.2-12.1 [facility] Comment on above: Performed By: #### 2 4317-0 #### [facility], [address] [facility] [place], [place]. Platelets (Bld) [#/Vol] 186 thou/mcL Normal 142-424 [facility] Comment on above: Performed By: #### 2 4317-0 #### [facility], [address] [facility] [place], [place]. RBC (Bld) [#/Vol] 3.89 million/mcL Normal 3.80-5.10 [facility] Comment on above: Performed By: #### 2 4317-0 #### [facility], [address] [facility]. WBC (Bld) [#/Vol] 15.3 thou/mcL High 4.6-10.2 [facility] Comment on above: Performed By: #### 2 4317-0 #### [facility], [address] [place] [address]. Hold Clot (Blood Bank)on Other useful information NOTNEED Normal [facility] Comment on above: Performed By: #### 1 1111-6 #### [facility], [facility] [place]. Culture, urine Bacteria identified Cx Nom (U) Positive [facility] Work Phone: Vital Signs Date Time Vital Sign Value Performing Clinician Chuy irizarry 12-01-2024 15:13-040 Body height 165.[address] Yousuf Ortiz MD Work Phone: [facility] 12-01-2024 15:13-0400 Body mass index (BMI) [Ratio] 27.3 kg/m2 Dr. Yousuf Ortiz MD Work Phone: [facility] 12-01-2024 15:13-0400 Body weight 74.[address] Yousuf Ortiz MD Work Phone: [facility] 12-01-2024 15:13-0400 Diastolic blood pressure 69 mm[Hg] Dr. Yousuf Ortiz MD Work Phone: [facility] 12-01-2024 15:13-0400 Systolic blood pressure 108 mm[Hg] Dr. Yousuf Ortiz MD Work Phone: [facility] 11-24-2024 15:55-0400 Body height 165.[address] Yousuf Ortiz MD Work Phone: [facility] 11-24-2024 15:55-0400 Body mass index (BMI) [Ratio] 27.5 kg/m2 Dr. Yousuf Ortiz MD Work Phone: [facility] 11-24-2024 15:55-0400 Body weight 75.[address] Yousuf Ortiz MD Work Phone: [facility] 11-24-2024 15:55-0400 Diastolic blood pressure 84 mm[Hg] Dr. Yousuf Ortiz MD Work Phone: [facility] 11-24-2024 15:55-0400 Systolic blood pressure 123 mm[Hg] Dr. Yousuf Ortiz MD Work Phone: [facility] 11-16-2024 13:49-0400 Body height 165.[address] Yousuf Ortiz MD Work Phone: [facility] 11-16-2024 13:49-0400 Body mass index (BMI) [Ratio] 27.8 kg/m2 Dr. Yousuf Ortiz MD Work Phone: [facility] 11-16-2024 13:49-0400 Body weight 75.[address] Yousuf Ortiz MD Work Phone: [facility] 11-16-2024 13:49-0400 Diastolic blood pressure 73 mm[Hg] Dr. Yousuf Ortiz MD Work Phone: [facility] 11-16-2024 13:49-0400 Systolic blood pressure 113 mm[Hg] Dr. Yousuf Ortiz MD Work Phone: [facility] 11-11-2024 15:41-0400 Body height 165.[address] Yousuf Ortiz MD Work Phone: [facility] 11-11-2024 15:41-0400 Body mass index (BMI) [Ratio] 27.4 kg/m2 Dr. Yousuf Ortiz MD Work Phone: [facility] 11-11-2024 15:41-0400 Body weight 74.[address] Yousuf Ortiz MD Work Phone: [facility] 11-11-2024 15:41-0400 Diastolic blood pressure 78 mm[Hg] Dr. Yousuf Ortiz MD Work Phone: [facility] 11-11-2024 15:41-0400 Systolic blood pressure 120 mm[Hg] Dr. Yousuf Ortiz MD Work Phone: [facility] 10-28-2024 13:55-0400 Body height 165.[address] Yousuf Ortiz MD Work Phone: [facility] 10-28-2024 13:55-0400 Body mass index (BMI) [Ratio] 27.4 kg/m2 Dr. Yousuf Ortiz MD Work Phone: [facility] 10-28-2024 13:55-0400 Body weight 74.[address] Yousuf Ortiz MD Work Phone: [facility] 10-28-2024 13:55-0400 Diastolic blood pressure 69 mm[Hg] Dr. Yousuf Ortiz MD Work Phone: [facility] 10-28-2024 13:55-0400 Systolic blood pressure 111 mm[Hg] Dr. Yousuf Ortiz MD Work Phone: [facility] 10-12-2024 08:52-0400 Body height 165.[address] Yousuf Ortiz MD Work Phone: [facility] 10-12-2024 08:52-0400 Body mass index (BMI) [Ratio] 27.1 kg/m2 Dr. Yousuf Ortiz MD Work Phone: [facility] 10-12-2024 08:52-0400 Body weight 74.[address] Yousuf Ortiz MD Work Phone: [facility] 10-12-2024 08:52-0400 Diastolic blood pressure 62 mm[Hg] Dr. Yousuf Ortiz MD Work Phone: [facility] 10-12-2024 08:52-0400 Systolic blood pressure 103 mm[Hg] Dr. Yousuf Ortiz MD Work Phone: [facility] 09-29-2024 15:15-0400 Body height 165.[address] Yousuf Ortiz MD Work Phone: [facility] 09-29-2024 15:15-0400 Body mass index (BMI) [Ratio] 27.3 kg/m2 Dr. Yousuf Ortiz MD Work Phone: [facility] 09-29-2024 15:15-0400 Body weight 74.[address] Yousuf Ortiz MD Work Phone: [facility] 09-29-2024 15:15-0400 Diastolic blood pressure 74 mm[Hg] Dr. Yousuf Ortiz MD Work Phone: [facility] 09-29-2024 15:15-0400 Systolic blood pressure 107 mm[Hg] Dr. Yousuf Ortiz MD Work Phone: [facility] 08-31-2024 09:09-0400 Body mass index (BMI) [Ratio] 26 kg/m2 Dr. Yousuf Ortiz MD Work Phone: [facility] 08-31-2024 09:09-0400 Body weight 70.[address] Yousuf Ortiz MD Work Phone: [facility] 08-31-2024 09:09-0400 Diastolic blood pressure 71 mm[Hg] Dr. Yousuf Ortiz MD Work Phone: [facility] 08-31-2024 09:09-0400 Systolic blood pressure 107 mm[Hg] Dr. Yousuf Ortiz MD Work Phone: [facility] 08-03-2024 08:30-0400 Body mass index (BMI) [Ratio] 25.2 kg/m2 Dr. Yousuf Ortiz MD Work Phone: [facility] 08-03-2024 08:30-0400 Body weight 68.[address] Yousuf Ortiz MD Work Phone: [facility] 08-03-2024 08:30-0400 Diastolic blood pressure 64 mm[Hg] Dr. Yousuf Ortiz MD Work Phone: [facility] 08-03-2024 08:30-0400 Systolic blood pressure 102 mm[Hg] Dr. Yousuf Ortiz MD Work Phone: [facility] 07-05-2024 15:40-0500 Body mass index (BMI) [Ratio] 24.3 kg/m2 Dr. Yousuf Ortiz MD Work Phone: [facility] 07-05-2024 15:40-0500 Body weight 66.[address] Yousuf Ortiz MD Work Phone: [facility] 07-05-2024 15:40-0500 Diastolic blood pressure 68 mm[Hg] Dr. Yousuf Ortiz MD Work Phone: [facility] 07-05-2024 15:40-0500 Systolic blood pressure 101 mm[Hg] Dr. Yousuf Ortiz MD Work Phone: [facility] 06-03-2024 11:26-0500 Body mass index (BMI) [Ratio] 23.6 kg/m2 Dr. Yousuf Ortiz MD Work Phone: [facility] 06-03-2024 11:26-0500 Body weight 64.[address] Yousuf Ortiz MD Work Phone: [facility] 06-03-2024 11:26-0500 Diastolic blood pressure 76 mm[Hg] Dr. Yousuf Ortiz MD Work Phone: [facility] 06-03-2024 11:26-0500 Systolic blood pressure 113 mm[Hg] Dr. Yousuf Ortiz MD Work Phone: [facility] 08-23-2023 09:58-0400 Body temperature 97.2 [degF] Tita Houser NATIONAL ACCOUNT REPRESENTATIVE.DOM[employer]ATRIX Work Phone: [facility] 08-23-2023 09:58-0400 Body weight 61 kg Tita Houser NATIONAL ACCOUNT REPRESENTATIVE.[employer]AT[employer]X Work Phone: [facility] 08-23-2023 09:58-0400 Diastolic blood pressure 65 mm[Hg] Tita Houser NATIONAL ACCOUNT REPRESENTATIVE.[employer]AT[employer]X Work Phone: [facility] 08-23-2023 09:58-0400 Heart rate 64 /min Tita Houser NATIONAL ACCOUNT REPRESENTATIVE.DOM[employer]X Work Phone: [facility] 08-23-2023 09:58-0400 Respiratory rate 18 /min Tita Houser NATIONAL ACCOUNT REPRESENTATIVE.[employer]X Work Phone: [facility] 08-23-2023 09:58-0400 SaO2% (BldA) [Mass fraction] 100 % Tita Houser NATIONAL ACCOUNT REPRESENTATIVE.[employer] Work Phone: [facility] 08-23-2023 09:58-0400 Systolic blood pressure 100 mm[Hg] Tita Houser NATIONAL ACCOUNT REPRESENTATIVE.[employer] Work Phone: [facility] 12-26-2022 08:34-0400 Body height 162.6 cm Jairo Romero MD Work Phone: [facility] 12-26-2022 08:34-0400 Body weight 62.14 kg Jairo Romero MD Work Phone: [facility] 12-26-2022 08:34-0400 Diastolic blood pressure 60 mm[Hg] Jairo Romero MD Work Phone: [facility] 12-26-2022 08:34-0400 Heart rate 58 /min Jairo Romero MD Work Phone: [facility] 12-26-2022 08:34-0400 Respiratory rate 16 /min Jairo Romero MD Work Phone: [facility] 12-26-2022 08:34-0400 SaO2% (BldA) [Mass fraction] 99 % Jairo Romero MD Work Phone: [facility] 12-26-2022 08:34-0400 Systolic blood pressure 90 mm[Hg] Jairo Romero MD Work Phone: [facility] 06-18-2022 09:20-0500 Body temperature 98.3 [degF] No Primary Care Physician [facility] 06-18-2022 09:20-0500 Diastolic blood pressure 57 mm[Hg] No Primary Care Physician [facility] 06-18-2022 09:20-0500 Heart rate 68 /min No Primary Care Physician [facility] 06-18-2022 09:20-0500 Respiratory rate 16 /min No Primary Care Physician [facility] 06-18-2022 09:20-0500 Systolic blood pressure 100 mm[Hg] No Primary Care Physician [facility] 06-17-2022 00:39-0500 Body height 165.1 cm No Primary Care Physician [facility] 06-17-2022 00:39-0500 Body mass index (BMI) [Ratio] 28.6 kg/m2 No Primary Care Physician [facility] 06-17-2022 00:39-0500 Body weight 78.1 kg No Primary Care Physician [facility] 06-13-2022 09:08-0500 Body mass index (BMI) [Ratio] 28.6 kg/m2 No Primary Care Physician [facility] 06-13-2022 09:08-0500 Body weight 78.13 kg No Primary Care Physician [facility] 06-13-2022 09:08-0500 Diastolic blood pressure 73 mm[Hg] No Primary Care Physician [facility] 06-13-2022 09:08-0500 Systolic blood pressure 109 mm[Hg] No Primary Care Physician [facility] 06-06-2022 13:12-0500 Body mass index (BMI) [Ratio] 28.4 kg/m2 No Primary Care Physician [facility] 06-06-2022 13:12-0500 Body weight 77.56 kg No Primary Care Physician [facility] 06-06-2022 13:12-0500 Diastolic blood pressure 80 mm[Hg] No Primary Care Physician [facility] 06-06-2022 13:12-0500 Systolic blood pressure 104 mm[Hg] No Primary Care Physician [facility] 05-30-2022 11:42-0500 Body mass index (BMI) [Ratio] 28.5 kg/m2 No Primary Care Physician [facility] 05-30-2022 11:42-0500 Body weight 77.62 kg No Primary Care Physician [facility] 05-30-2022 11:42-0500 Diastolic blood pressure 64 mm[Hg] No Primary Care Physician [facility] 05-30-2022 11:42-0500 Systolic blood pressure 112 mm[Hg] No Primary Care Physician [facility] 05-23-2022 09:57-0500 Body mass index (BMI) [Ratio] 28.1 kg/m2 No Primary Care Physician [facility] 05-23-2022 09:57-0500 Body weight 76.77 kg No Primary Care Physician [facility] 05-23-2022 09:57-0500 Diastolic blood pressure 74 mm[Hg] No Primary Care Physician [facility] 05-23-2022 09:57-0500 Systolic blood pressure 126 mm[Hg] No Primary Care Physician [facility] 05-09-2022 11:47-0500 Body mass index (BMI) [Ratio] 28 kg/m2 No Primary Care Physician [facility] 05-09-2022 11:47-0500 Body weight 76.37 kg No Primary Care Physician [facility] 05-09-2022 11:47-0500 Diastolic blood pressure 71 mm[Hg] No Primary Care Physician [facility] 05-09-2022 11:47-0500 Systolic blood pressure 103 mm[Hg] No Primary Care Physician [facility] 04-24-2022 12:38-0500 Body mass index (BMI) [Ratio] 27.1 kg/m2 No Primary Care Physician [facility] 04-24-2022 12:38-0500 Body weight 74.16 kg No Primary Care Physician [facility] 04-24-2022 12:38-0500 Diastolic blood pressure 74 mm[Hg] No Primary Care Physician [facility] 04-24-2022 12:38-0500 Systolic blood pressure 113 mm[Hg] No Primary Care Physician [facility] 04-07-2022 15:25-0500 Body mass index (BMI) [Ratio] 26.8 kg/m2 No Primary Care Physician [facility] 04-07-2022 15:25-0500 Body weight 73.19 kg No Primary Care Physician [facility] 04-07-2022 15:25-0500 Diastolic blood pressure 64 mm[Hg] No Primary Care Physician [facility] 04-07-2022 15:25-0500 Systolic blood pressure 98 mm[Hg] No Primary Care Physician [facility] 03-21-2022 11:55-0500 Body mass index (BMI) [Ratio] 26.4 kg/m2 No Primary Care Physician [facility] 03-21-2022 11:55-0500 Body weight 71.89 kg No Primary Care Physician [facility] 03-21-2022 11:55-0500 Diastolic blood pressure 56 mm[Hg] No Primary Care Physician [facility] 03-21-2022 11:55-0500 Systolic blood pressure 94 mm[Hg] No Primary Care Physician [facility] 02-21-2022 11:24-0400 Body mass index (BMI) [Ratio] 25 kg/m2 No Primary Care Physician [facility] 02-21-2022 11:24-0400 Body weight 68.2 kg No Primary Care Physician [facility] 02-21-2022 11:24-0400 Diastolic blood pressure 72 mm[Hg] No Primary Care Physician [facility] 02-21-2022 11:24-0400 Systolic blood pressure 109 mm[Hg] No Primary Care Physician [facility] 01-24-2022 11:30-0400 Body height 165.1 cm No Primary Care Physician [facility] Work Phone: 01-24-2022 11:28-0400 Body mass index (BMI) [Ratio] 24.3 kg/m2 No Primary Care Physician [facility] Work Phone: 01-24-2022 11:28-0400 Body weight 66.22 kg No Primary Care Physician [facility] Work Phone: 01-24-2022 11:28-0400 Diastolic blood pressure 74 mm[Hg] No Primary Care Physician [facility] Work Phone: 01-24-2022 11:28-0400 Systolic blood pressure 117 mm[Hg] No Primary Care Physician [facility] Work Phone: 12-24-2021 11:49-0400 Body temperature 99 [degF] Tita Houser NATIONAL ACCOUNT REPRESENTATIVE.[employer]X Work Phone: [facility] 12-24-2021 11:49-0400 Body weight 61.24 kg Tita Houser NATIONAL ACCOUNT REPRESENTATIVE.[employer] Work Phone: [facility] 12-24-2021 11:49-0400 Diastolic blood pressure 64 mm[Hg] Tita Houser NATIONAL ACCOUNT REPRESENTATIVE.[employer] Work Phone: [facility] 12-24-2021 11:49-0400 Heart rate 84 /min Tita Houser NATIONAL ACCOUNT REPRESENTATIVE.[employer] Work Phone: [facility] 12-24-2021 11:49-0400 Respiratory rate 16 /min Tita Houser NATIONAL ACCOUNT REPRESENTATIVE.[employer]X Work Phone: [facility] 12-24-2021 11:49-0400 SaO2% (BldA) [Mass fraction] 99 % Tita Houser NATIONAL ACCOUNT REPRESENTATIVE.[employer] Work Phone: [facility] 12-24-2021 11:49-0400 Systolic blood pressure 110 mm[Hg] Tita Houser NATIONAL ACCOUNT REPRESENTATIVE.[employer]X Work Phone: [facility] 12-20-2021 11:52-0400 Body mass index (BMI) [Ratio] 22.5 kg/m2 No Primary Care Physician [facility] Work Phone: 12-20-2021 11:52-0400 Body weight 61.46 kg No Primary Care Physician [facility] Work Phone: 12-20-2021 11:52-0400 Diastolic blood pressure 62 mm[Hg] No Primary Care Physician [facility] Work Phone: 12-20-2021 11:52-0400 Systolic blood pressure 100 mm[Hg] No Primary Care Physician [facility] Work Phone: 11-21-2021 15:03-0400 Body height 165.[address] Sheyla Small Work Phone: [facility] Work Phone: 11-21-2021 15:03-0400 Body mass index (BMI) [Ratio] 22 kg/m2 Dr. Sheyla Small Work Phone: [facility] Work Phone: 11-21-2021 15:03-0400 Body weight 59.[address] Sheyla Small Work Phone: [facility] Work Phone: 11-21-2021 15:03-0400 Diastolic blood pressure 60 mm[Hg] Dr. Sheyla Small Work Phone: [facility] Work Phone: 11-21-2021 15:03-0400 Systolic blood pressure 100 mm[Hg] Dr. Sheyla Small Work Phone: [facility] Work Phone: Encounters Encounter Date Encounter Type Care Provider Facility Start: 12-05-2024 ambulatory Yousuf Ortiz [facility] Start: 12-01-2024 ambulatory Radha Valverde Facility :[facility] Start: 12-01-2024 End: 12-01-2024 Patient encounter procedure Radha Valverde [facility] [facility] Work Phone: Start: 12-01-2024 End: 12-01-[address] Yousuf Ortiz MD Work Phone: -[facility] Start: 11-24-2024 End: 11-24-2024 Patient encounter procedure Radha Valverde CNM -[facility] Work Phone: Start: 11-24-2024 End: 11-24-[address] Yousuf Ortiz MD Work Phone: -[facility] Start: 11-22-2024 End: 11-22-[address] Yousuf Ortiz MD Work Phone: -Ultrasound [facility] Start: 11-22-2024 End: 11-22-[address] Linda Mcconnell MD -[facility] Work Phone: Start: 11-22-2024 End: 11-22-2024 ambulatory Linda Mcconnell Facility:[facility] Start: 11-16-2024 End: 11-16-[address] Linda Mcconnell MD -[facility] Work Phone: Start: 11-16-2024 End: 11-16-[address] Yousuf Ortiz MD Work Phone: [facility] Start: 11-14-2024 End: 11-14-[address] Yousuf Ortiz MD Work Phone: -Ultrasound [facility] Start: 11-14-2024 End: 11-14-2024 Patient encounter procedure Radha Valverde CNM -[facility] Work Phone: Start: 11-14-2024 End: 11-14-2024 ambulatory Radha Valverde Facility:[facility] Start: 11-11-2024 End: 11-11-2024 Patient encounter procedure Radha Valverde CNM -[facility] Work Phone: Start: 11-11-2024 End: 11-11-[address] Yousuf Ortiz MD Work Phone: [facility] Start: 11-11-2024 End: 11-11-2024 ambulatory Radha Valverde Facility:[facility] Start: 11-02-2024 End: 11-02-[address] Yousuf Ortiz MD Work Phone: Ultrasound [facility] Start: 11-02-2024 End: 11-02-[address] [facility] Work Phone: Start: 11-02-2024 End: 11-02-2024 ambulatory Sheyla Small Facility:[facility] Start: 10-28-2024 End: 10-28-[address] Sheyla Small DO -[facility] Work Phone: Start: 10-28-2024 End: 10-28-[address] Yousuf Ortiz MD Work Phone: [facility] Start: 10-12-2024 End: 10-12-[address] Sheyla Small DO -[facility] Work Phone: Start: 10-12-2024 End: 10-12-[address] Yousuf Ortiz MD Work Phone: [facility] Work Phone: Start: 09-29-2024 End: 09-29-2024 Patient encounter procedure Radha LEE -[facility] Work Phone: Start: 09-29-2024 End: 09-29-[address] Yousuf Ortiz MD Work Phone: [facility] Work Phone: Start: 08-31-2024 End: 08-31-[address] Linda Mcconnell MD -[facility] Work Phone: Start: 08-31-2024 End: 08-31-2024 ambulatory Linda Mcconnell Facility:[facility] Start: 08-31-2024 End: 08-31-2024 ambulatory Linda Heididona Facility:[facility] Start: 08-03-2024 End: 08-03-2024 Patient encounter procedure Micaela Peterson DEPUTY JUVENILE OFFICER-C -[facility] Work Phone: Start: 08-03-2024 End: 08-03-2024 ambulatory Micaela Peterson Facility:[facility] Start: 07-28-2024 End: 07-28-2024 ambulatory KOBE Greco CABAN [facility] Start: 07-05-2024 End: 07-05-[address] Sheyla Small DO -[facility] Work Phone: Start: 07-05-2024 End: 07-05-2024 ambulatory Sheyla Small Facility:[facility] Start: 06-03-2024 End: 06-03-2024 Patient encounter procedure Trish Murray CNM -Laboratory Work Phone: Start: 06-03-2024 End: 06-03-2024 Patient encounter procedure Trish Murray CNM -[facility] Work Phone: Start: 06-03-2024 End: 06-03-2024 ambulatory Yousuf Angel Facility:[facility] Start: 06-03-2024 End: 06-03-2024 ambulatory Yousuf Angel Facility:[facility] Start: 03-09-2024 End: 03-09-2024 ambulatory Yousuf Nineveh Facility:[facility] Start: 02-24-2024 End: 02-24-2024 ambulatory Yousuf Angel Facility:[facility] Start: 02-24-2024 End: 02-24-2024 ambulatory Yousuf Nineveh Facility:[facility] Start: 08-23-2023 End: 08-23-2023 ambulatory JAIRO ROMERO Facility:[facility] Start: 08-23-2023 End: 08-23-2023 Patient encounter procedure Tita Houser APRN.DOMINATRIX Work Phone: [facility] Comment on above: Conjunctivitis of ri ght eye, unspecified conjunctivitis type (Primary Dx); URI, acute Start: 06-29-2023 Telephone encounter Faraz Romero MD Work Phone: [facility] Comment on above: Results Start: 06-19-2023 End: 06-20-2023 ambulatory JAIRO ROMERO Facility:[facility] Start: 06-19-2023 Patient encounter procedure JAIRO ROMERO [facility] Start: 03-20-2023 End: 03-21-2023 ambulatory JAIRO ROMERO Facility:[facility] Start: 03-13-2023 End: 03-14-2023 ambulatory GAL Lit ROMERO Facility:[facility] Start: 12-26-2022 End: 12-26-2022 ambulatory JAIRO ROMERO Facility:[facility] Start: 12-26-2022 End: 12-26-2022 Patient encounter procedure Jairo Romero MD Work Phone: [facility] Comment on above: Melasma (Primary Dx) ; Encounter to establish care; Depression screening Start: 06-18-2022 Non-patient / Non-visit No Azra prince Care Physician [facility] Start: 06-17-2022 Non-patient / Non-visit No [facility] Care Physician [facility] Start: 06-17-2022 End: 06-18-2022 Evaluation and management of inpatient No Primary Care Physician [facility] Start: 06-13-2022 End: 06-13-2022 Patient encounter procedure No Primary Care Physician [facility] Start: 06-06-2022 End: 06-06-2022 Patient encounter procedure No Primary Care Physician [facility] Start: 05-30-2022 End: 05-30-2022 Patient encounter procedure No Primary Care Physician [facility] Start: 05-23-2022 End: 05-23-2022 Patient encounter procedure No Primary Care Physician [facility] Start: 05-23-2022 End: 05-23-2022 Patient encounter procedure No Primary Care Physician [facility] Start: 05-09-2022 End: 05-09-2022 Patient encounter procedure No Primary Care Physician [facility] Start: 04-24-2022 End: 04-24-2022 Patient encounter procedure No Primary Care Physician [facility] Start: 04-07-2022 End: 04-07-2022 Patient encounter procedure No Primary Care Physician [facility] Start: 03-21-2022 End: 03-21-2022 Patient encounter procedure No Primary Care Physician [facility] Start: 02-21-2022 End: 02-21-2022 Patient encounter procedure No Primary Care Physician [facility] Start: 01-24-2022 End: 01-24-2022 ambulatory No Primary Care Physician [facility] Work Phone: Start: 01-24-2022 End: 01-24-2022 Patient encounter procedure No Primary Care Physician [facility] Start: 12-24-2021 End: 12-24-2021 Patient encounter procedure Tita Houser APRN.CNP Work Phone: [facility] Comment on above: Headache, unspecifie d headache type (Primary Dx); Viral illness Start: 12-20-2021 End: 12-20-2021 Patient encounter procedure No Primary Care Physician [facility] Start: 12-06-2021 End: 12-06-[address] Sheyla Small Work Phone: [facility] Start: 11-21-2021 End: 11-21-[address] Sheyla Small Work Phone: [facility], Specimen Start: 11-21-2021 End: 11-21-[address] Sheyla Small Work Phone: [facility] Start: 12-24-2020 End: 12-24-2020 ambulatory KATHY RIVERA [facility] Start: 12-24-2020 End: 12-24-2020 Office outpatient new 45 minutes Kathy Rivera MD Work Phone: [facility] Comment on above: Melasma (Primary Dx) ; Dermal nevus of left cheek; Osborne angioma Start: 10-26-2020 End: 10-26-2020 Transcribe Orders Maira Lai [facility] Comment on above: Melasma (Primary Dx) Procedures Date Procedure Procedure Detail Performing Clinician Start: 11-22-2024 Ultrasonography for antepartum monitoring of fetus Dr. Yousuf Ortiz MD Work Phone: Start: 11-14-2024 Ultrasonography for antepartum monitoring of fetus Dr. Yousuf Ortiz MD Work Phone: Start: 11-11-2024 Beta-hemolytic Strep tococcus culture Dr. Yousuf Ortiz MD Work Phone: Start: 11-02-2024 Ultrasound scan for growth Dr. [...] Phone: Start: 06-03-[address] Yousfu Ortiz MD Work Phone: Comment on above: Antibody Results Int erpretation of Immune Status Non Reactive Presumed Non-Immune Equivocal Equivocal Reactive Presumed Immune Start: 12-24-2021 Urnls dip stick/tabl et rgnt auto w/o microscopy Tita Houser NATIONAL ACCOUNT REPRESENTATIVE.DOMINATRIX Work Phone: Group B Streptococcu s Culture No Primary Care Physician Urine culture Dr. Sheyla Polk Work Phone: Plan of Treatment Date Care Activity Detail Author Start: 04-07-2032 Urine microalbumin profile [facility] Start: 11-09-2029 Tetanus vaccination Tetanus: Every 1 0yrs [facility] Start: 11-22-2024 Ultrasonography for antepartum monitoring of fetus [facility] Start: 03-20-2024 Covid-19 Vaccine () Covid-19 Vaccine () [facility] Comment on above: Postponed from 01/02 (Declined at this time) Start: 03-20-2024 HIV screening HIV Screening [facility] Comment on above: Postponed from 04/26 (Declined at this time) Start: 03-20-2024 Screening for malign ant neoplasm of cervix [facility] Comment on above: Postponed from 04/26 (Declined at this time) Postponed from 04/26 (Declined at this time) Start: 12-27-2023 COVID-19 VACCINE (3 - Booster for Roxana series) COVID-19 VACCINE (3 - Booster for Roxana series) [facility] Comment on above: Postponed from 05/16 (Declined at this time) Start: 05-04-2023 Behavioral Health Screening Behavioral Health Screening [facility] Start: 05-04-2023 Depression Assessment Depression Ass essment [facility] Start: 02-25-2023 End: 04-27-2023 CBC W Auto Differential panel - Blood CBC + DIFF Lab Routine Encounter to establish care Expected: 02/25/2023, Expires: 04/27/2023 [facility] Work Phone: Comment on above: Expected: 02/25/2023 , Expires: 04/27/2023 Start: 02-25-2023 End: 04-27-2023 Comprehensive metabolic 2000 panel - Serum or Plasma COMP METABOLIC PANEL Lab Routine Encounter to establish care Expected: 02/25/2023, Expires: 04/27/2023 [facility] Work Phone: Comment on above: Expected: 02/25/2023 , Expires: 04/27/2023 Start: 02-25-2023 End: 04-27-2023 Lipid 1996 panel - Serum or Plasma LIPID PANEL BASIC Lab Routine Encounter to establish care Expected: 02/25/2023, Expires: 04/27/2023 [facility] Work Phone: Comment on above: Expected: 02/25/2023 , Expires: 04/27/2023 Start: 01-02-2023 Influenza vaccination INFLUENZA (#1) [facility] Start: 06-18-2022 Patient discharge [facility] Start: 06-17-2022 Administration of medication [facility] Start: 06-17-2022 Application of ice c ollar, cap or bag [facility] Start: 06-17-2022 Catheterization of vein [facility] Start: 06-17-2022 Introduction of urin oniel catheter [facility] Start: 06-17-2022 Measuring intake and output [facility] Start: 06-17-2022 Notification of physician [facility] Start: 06-17-2022 Procedure discontinued [facility] Start: 06-17-2022 Provision of activit y privileges [facility] Start: 06-17-2022 Vital signs measurements [facility] Start: 06-17-[address] [facility] Start: 06-17-2022 Admission procedure [facility] Start: 06-17-2022 Verification routine [facility] Start: 01-02-2022 Influenza vaccination INFLUENZA (#1) [facility] Start: 12-24-2021 End: 01-07-2022 Influenza virus A and B RNA and SARS-CoV-2 (COVID-19) N gene panel - Respiratory specimen by SINA with probe detection [facility] Work Phone: Comment on above: Expected: 12/24/2021 , Expires: 01/07/2022 Start: 01-02-2021 Influenza vaccination Sequenti al Influenza Vaccine (#1) [facility] Start: 2016 HPV TESTING HPV TESTING [facility] Start: 2007 PAP TESTING PAP TESTING [facility] Start: 2004 Hepatitis C screening Hepatitis C [facility] Start: 2004 HEPATITIS C SCREENING HEPATITIS C [facility] Start: 2004 HIV SCREENING HIV SCREENING [facility] Start: 07-06-2002 Urine microalbumin profile DTA P,TDAP,TD (6 - Tdap) [facility] Start: 2001 HIV screening HIV Screening [facility] Start: 1998 Depression screening using PHQ-9 (Patient Health Questionnaire 9) score [facility] Start: 1989 History and physical examination, annual for health maintenance Wellness Visit [facility] Start: 1986 COVID-19 VACCINE (#1) COVID-19 VACCI NE (#1) [facility] Start: 1986 Screening for malign ant neoplasm of cervix Pap Smear [facility] Biophysical pr ofile panel US [facility] Patient referral [facility] Work Phone: Streptococcus agalac tiae [Presence] in Unspecified specimen by Organism specific culture [facility] Ultrasonography for antepartum monitoring of fetus [facility] Ultrasonography for antepartum monitoring of fetus [facility] Ultrasonography for antepartum monitoring of fetus [facility] Ultrasound scan for growth [facility] Ultrasound scan for growth [facility] Immunizations Immunization Date Immunization Notes Care Provider Fa cility 09-29-2024 tetanus toxoid, redu faisal diphtheria toxoid, and acellular pertussis vaccine, adsorbed Dr. Yousuf Ortiz MD Work Phone: [facility] 02-24-2024 influenza, injectabl e, madin pilar canine kidney, preservative free Dr. Yousuf Ortiz MD Work Phone: [facility] 03-20-2023 influenza, injectabl e, quadrivalent, contains preservative Jairo Romero MD Work Phone: [facility] 03-20-2023 influenza, injectabl e, quadrivalent, preservative free Dr. Yousuf Ortiz MD Work Phone: [facility] 04-07-2022 tetanus toxoid, redu faisal diphtheria toxoid, and acellular pertussis vaccine, adsorbed No Primary Care Physician [facility] 02-21-2022 influenza, injectabl e, quadrivalent, preservative free Dr. Yousuf Ortiz MD Work Phone: [facility] 02-21-2022 influenza, seasonal, injectable No Primary Care Physician [facility] 03-21-2021 Covid (Moderna) Dr. Yousuf randall MD Work Phone: [facility] 08-02-2020 Covid (Diogo & Diogo) Dr. Yousuf Ortiz MD Work Phone: [facility] 03-20-2020 influenza, injectabl e, quadrivalent, preservative free Jairo Romero MD Work Phone: [facility] 11-10-2019 tetanus toxoid, redu faisal diphtheria toxoid, and acellular pertussis vaccine, adsorbed Jairo Romero MD Work Phone: [facility] 05-27-2019 Influenza, injectabl e, Madin [place] Canine Kidney, preservative free, quadrivalent Jairo Romero MD Work Phone: [facility] 07-10-2014 tetanus toxoid, redu faisal diphtheria toxoid, and acellular pertussis vaccine, adsorbed Jairo Romero MD Work Phone: [facility] 05-30-2005 hepatitis A vaccine, pediatric/adolescent dosage, [address] Yousuf Ortiz MD Work Phone: [facility] 05-30-2005 hepatitis A vaccine, unspecified formulation Tita Houser APRN.CNP Work Phone: [facility] Work Phone: 12-06-2004 meningococcal polysaccharide vaccine (MPSV4) Dr. Yousuf Ortiz MD Work Phone: [facility] 12-06-2004 Meningococcal, MCV4, unspecified conjugate formulation(groups A, C, Y and W-135) Tita Houser NATIONAL ACCOUNT REPRESENTATIVE.DOMINATRIX Work Phone: [facility] 07-05-2002 TD(adult) unspecifie d formulation Jairo Romero MD Work Phone: [facility] 07-05-2002 tetanus and diphther ia toxoids, adsorbed, preservative free, for adult use (2 Lf of tetanus toxoid and 2 Lf of diphtheria toxoid) Tita Houser NATIONAL ACCOUNT REPRESENTATIVE.DOMINATRIX Work Phone: [facility] 05-04-2000 hepatitis A vaccine, adult dosage Jairo Romero MD Work Phone: [facility] 05-04-2000 tetanus toxoid, adsorbed Jairo Romero MD Work Phone: [facility] 04-29-1999 hepatitis B vaccine, pediatric or pediatric/adolescent dosage Tita Houser NATIONAL ACCOUNT REPRESENTATIVE.DOMINATRIX Work Phone: [facility] 11-28-1998 hepatitis B vaccine, pediatric or pediatric/adolescent dosage Tita Houser NATIONAL ACCOUNT REPRESENTATIVE.DOMINATRIX Work Phone: [facility] 10-03-1998 hepatitis B vaccine, pediatric or pediatric/adolescent dosage Tita Houser NATIONAL ACCOUNT REPRESENTATIVE.DOMINATRIX Work Phone: [facility] 10-03-1998 measles, mumps and rubella virus vaccine Tita Houser NATIONAL ACCOUNT REPRESENTATIVE.DOMINATRIX Work Phone: [facility] 09-28-1991 diphtheria, tetanus toxoids and acellular pertussis vaccine Dr. Yousuf Ortiz MD Work Phone: [facility] 09-28-1991 diphtheria, tetanus toxoids and pertussis vaccine Tita Houser NATIONAL ACCOUNT REPRESENTATIVE.DOMINATRIX Work Phone: [facility] 09-28-1991 trivalent poliovirus vaccine, live, oral Tita Houser NATIONAL ACCOUNT REPRESENTATIVE.DOMINATRIX Work Phone: [facility] 05-01-1988 diphtheria, tetanus toxoids and acellular pertussis vaccine Dr. Yousuf Ortiz MD Work Phone: [facility] 05-01-1988 diphtheria, tetanus toxoids and pertussis vaccine Tita Houser NATIONAL ACCOUNT REPRESENTATIVE.DOMINATRIX Work Phone: [facility] 05-01-1988 trivalent poliovirus vaccine, live, oral Tita Houser NATIONAL ACCOUNT REPRESENTATIVE.DOMINATRIX Work Phone: [facility] 12-21-1987 haemophilus influenz ae type b vaccine, PRP-D conjugate Tita Houser NATIONAL ACCOUNT REPRESENTATIVE.DOMINATRIX Work Phone: [facility] 12-21-1987 haemophilus influenz ae type b vaccine, PRP-T conjugate Dr. Yousuf Ortiz MD Work Phone: [facility] 09-14-1987 measles, mumps and rubella virus vaccine Tita Houser NATIONAL ACCOUNT REPRESENTATIVE.DOMINATRIX Work Phone: [facility] 04-21-1987 trivalent poliovirus vaccine, live, oral Tita Houser NATIONAL ACCOUNT REPRESENTATIVE.DOMINATRIX Work Phone: [facility] 1986 diphtheria, tetanus toxoids and acellular pertussis vaccine Dr. Yousuf Ortiz MD Work Phone: [facility] 1986 diphtheria, tetanus toxoids and pertussis vaccine Tita Houser NATIONAL ACCOUNT REPRESENTATIVE.DOMINATRIX Work Phone: [facility] 1986 diphtheria, tetanus toxoids and acellular pertussis vaccine Dr. Yousuf Ortiz MD Work Phone: [facility] 1986 diphtheria, tetanus toxoids and pertussis vaccine Tita Houser NATIONAL ACCOUNT REPRESENTATIVE.DOMINATRIX Work Phone: [facility] 1986 trivalent poliovirus vaccine, live, oral Tita Houser NATIONAL ACCOUNT REPRESENTATIVE.DOMINATRIX Work Phone: [facility] 1986 diphtheria, tetanus toxoids and acellular pertussis vaccine Dr. Yousuf Ortiz MD Work Phone: [facility] 1986 diphtheria, tetanus toxoids and pertussis vaccine Tita Houser APRN.DOMINATRIX Work Phone: [facility] 1986 trivalent poliovirus vaccine, live, oral Jairo Romero MD Work Phone: [facility] Payers Date Payer Category Payer Unknown [id number] 2024 Self-pay [id number] 2021 Private Health Insurance [id number] 2021 Private Health Insurance [id number] 1986 Unknown [id number] 2.16.840.1.541588.3.579.2. 903 1986 Unknown [id number] 2.16.840.1.003513.3.579.2. 479 Unknown [facility]* [id number] Effective for all dates [address] [address] [place] [address] [id number]. [id number] Unknown [id number] Unknown [id number] Unknown [id number] 2.16.840.1.696211.3.579.2. 462 Unknown [id number] 2.16.840.1.557549.3.579.2. 462 Unknown [id number] 2.16.840.1.980905.3.579.2. 462 Unknown [id number] 2.16.840.1.021205.3.579.2. 462 Unknown [id number] 2.16.840.1.147618.3.579.2. 462 Unknown [id number] 2.840.1.108651.3.579.2. 462 Unknown [id number] 2.840.1.773134.3.579.2. 462 Unknown [id number] 2.840.1.898322.3.579.2. 462 Unknown [id number] .840.1.142276.3.579.2. 462 Unknown [id number] 2.840.1.129225.3.579.2. 462 Unknown [id number] .0.1.942257.3.579.2. 462 Unknown [id number] 2.840.1.485769.3.579.2. 462 Unknown [id number] .840.1.236589.3.579.2. 462 Unknown [id number] .0.1.040761.3.579.2. 462 Unknown [id number] .0.1.414118.3.579.2. 462 Unknown [id number] 06.19.830.1.002418.3.579.2. 462 Unknown [id number] .840.1.543065.3.579.2. 462 Unknown [id number] 840.1.773432.3.579.2. 462 Unknown [id number] 06.19.830.1.071187.3.579.2. 462 Unknown [id number] 06.19.830.1.539151.3.579.2. 462 Unknown [id number] 06.19.830.1.679454.3.579.2. 462 Unknown [id number] 06.19.830.1.862409.3.579.2. 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 (finding) [facility] Start: 12-14-2021 End: 12-24-2021 Exposure to SARS-CoV-2 (event) Yes [facility] Start: 12-26-2022 End: 08-23-2023 Alcohol intake Current drinker of alcohol (finding) [facility] Start: 12-26-2022 End: 08-23-2023 History of Social function [facility] Work Phone: Start: 12-26-2022 End: 08-23-2023 Tobacco use panel [facility] Work Phone: Adult Depression Screening Assessment 0 [facility] Work Phone: Start: 12-26-2022 Alcohol Comment 1-2 drinks per month [facility] Start: 09-13-2022 Gender identity Identifies as female gender (finding) [facility] Goals Date Patient Goal Desired Activity /State Clinical Notes 12-24-2020 to 11-25-2024 Note Date & Type Note Facility 11-25-2024 Radiology Diagnostic study note [facility] Imaging Services [address] [place], [place] [id number] OB Limited (No Biometrics) MR#: [id number] Acct: [id number] Name: BRIGID BELLA Rep #: [id number] : 1985 F 39 From: Manan Iqbal MD PCP: Dr. Yousuf Ortiz MD Status: REG CLI Study:OB Limited (No Biometrics) Date of Exam : 11/22/24 Exam# [id number] Ordering Dr: Linda Salgado MD PROCEDURE: OB LIMITED (NO BIOMETRICS) 11/22/2024 REASON FOR EXAM: CHRIS CHECK. age by LMP 37 weeks 5 days. TECHNIQUE: OB LIMITED (NO BIOMETRICS). Transabdominal imaging of the maternal pelvis and a> 14 week gestation with image documentation. COMPARISON: 11/14/2024 FINDINGS FETUS: There is a single living intrauterine gestation. POSITION: position is cephalic. HEART RATE: The heart rate is 150 BPM and regular. ANATOMIC SURVEY: Detailed anatomy survey not performed. PLACENTA: The placenta is left lateral. No demonstrated evidence of previa or abruption. AMNIOTIC FLUID: Within normal limits. CHRIS measuring 9.7 cm. Deepest vertical pocket (DVP) measuring 4.1 cm. CERVIX: Not visualized. US/OB Limited (No Biometrics) IMPRESSION: 1. Single living intrauterine gestation. No abnormality seen. 2. Normal amniotic fluid index of 9.7 cm. Reading Location: [id number] CC: Dr. Yousuf Ortiz MD; Dr. Linda Mcconnell MD ~ Pharmaceutical Specialty Representative: Signed [facility] 11-24-[address] [facility] 11-24-2024 Progress note Note Date/Time November 24, 2024 4:12pm [facility] [address], [address] [place] [address] OFFICE VISIT Date of Service: 11/24/24 MR#: [id number] Acct: [id number] Name: BRIGID BELLA Rep #: [id number] : 1985 Provider: LIMA Valverde Age/Sex: 39/F [place] [facility] [place]: Signed Intake Vital Signs 10/28/24 13:55 11/16/24 13:49 11/24/24 15:55 Height 5 ft 5 in 5 ft 5 in 5 ft 5 in Weight: 167 lb 165 lb 8 oz BMI 27.8 27.5 BP 113/73 123/84 H Intake Visit Reasons: 38 wk ob Chief Complaint: 38wk OB Distance Education Teacher Required: No Is patient in pain?: No Allergies No Known Allergies Allergy (Verified 11/24/24 15:57) Medications ?Medication ?Instructions ?Recorded ?Confirmed ?Type multivitamin no.47-iron fum 27 cap PO 05/20/24 5 History mg-folate no.1 1 mg-dha 300 mg capsule (PNV-DHA) Last Menstrual Period: 03/03/24 : No PFSH PFSH Medical History Spontaneous onset of labor (spontaneous vaginal delivery) Two vessel umbilical cord Supervision of normal Surgical History [place] teeth extracted No pertinent past surgical history [...] 2 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 Date Name GA/Weeks Outcome Route Bth Weight Infant Gen Labor Lgth Anesthesia Del Locatn Provider FOB Unknown 01/08/20 John 40 live - full term 7# 10oz M veronica 12 hours none [facility] [place] Dr. Ibeth Carlos 06/17/22 Kevin 40 live - full term 8lbs 1oz Male n one [facility] Trish Murray CNM Terrance Delivery Date: 06/17/22 Last Updated by: Diandra Truong see problem list for complications HPI 38 wk ob Details: BRIGID BELLA is a 39 year old who presents for routine OB visit. OB Visit JAZMIN Calculator Estimated Delivery Date Method Current WG Current Estimate 12/08/24 LMP (Certain) 38w 0d Expected Delivery Route/Plan Labor Preferences- CB/BF [...] nip t. anatomy us ordered. works in [employer] and wants anatomy scan in [place]. 08/03/24 -?-?-?-?-?-?-?-?-?-?-?-?- 21w 6d 152 lb (+10 lb) 102/64 Negative -?-?-?-?-?-?-?-?-?-?-?-?- Negative 136 -?-?-?-?-?-?-?-?-?-?-?-?- MH-No VB. Angella garcia. Nl anatomy reviewed. Some gastric reflux/pepcid 08/31/24 -?-?-?-?-?-?-?-?-?-?-?-?- 25w 6d 156 lb 6 oz (+14 lb 6 oz) 107/71 Negative -?-?-?-?-?-?-?-?-?-?-?-?- Negative 140 -?-?-?-?-?-?-?-?-?-?-?-?- SM- no vb craariellei ng good fm. [place] 09/29/24 -?-?-?-?-?-?-?-?-?-?-?-?- 30w 0d 164 [...] 2 oz (+23 lb 2 oz) 111/69 Negative -?-?-?-?-?-?-?-?-?-?-?-?- Negative 140 34 Cephalic -?-?-?-?-?-?-?-?-?-?-?-?- JV- patient rece ived the RSV vaccine This week. 10/24/24. no lof, vaginal bleeding, or dec fm. JV- patient received the RSV vaccine This week. 10/24/24. no lof, vaginal bleeding, or dec fm. growth scan 36 weeks 11/11/24 -?-?-?-?-?-?-?-?-?-?-?-?- 36w 1d 165 lb 2 oz (+23 lb 2 oz) 120/78 Negative -?-?-?-?-?-?-?-?-?-?-?-?- Negative 130 35 Cephalic -?-?-?-?-?-?-?-?-?-?-?-?- KW- no vb/lof/ct x. good fm. GBS today. declines vaginal exam today. 11/16/24 -?-?-?-?-?-?-?-?-?-?-?-?- 36w 6d 167 lb (+25 lb) 113/73 Negative -?-?-?-?-?--?-?-?-?-?-?-?- Negative 140 36 Cephalic -?-?-?-?-?-?-?-?-?-?-?-?- SM- no vb lof go od fm no regular ctx discussed 11 percentile and 8 cm chris, recommend repeat chris weekly. 11/24/24 -?-?-?-?-?-?-?-?-?-?-?-?- 38w 0d 165 lb 8 oz (+23 lb 8 oz) 123/84 Negative -?-?-?-?-?-?-?-?-?-?-?-?- Negative 120 36 Cephalic -?-?-?-?-?-?-?-?-?-?-?-?- KW- no vb/lof/ct x. good fm. CHRIS is 9 this week. declines vaginal exam. ACOG First Trimester First Trimester: Desire for [...] Monitoring, Signs and Symptoms of Preeclampsia and [place] Education ROS Const Reports system reviewed and [...] Negative Last Edit by Hailey Stallworth on 11/24/24 16:03 Office Urine Protein Negative Last Edit by Hailey Stallworth on 11/24/24 16:03 Coding Level of Care Code OB Routine Diagnoses CHRIS (amniotic fluid index) borderline low O28.8 Advanced maternal age (AMA) in AMA (advanced maternal age) multigravida 35+ O09.529 Encounter for supervision of other normal in second trimester Z34.82 Normal : other normal Trimester: second trimester 38 weeks gestation of Z3A.38 Weeks of gestation: 38 weeks FH: ALS (amyotrophic lateral sclerosis) Z82.0 Hyperlipidemia E78.5 Assessment and Plan Assessment and Plan (1) CHRIS (amniotic fluid index) borderline low: Status: Acute Comment: repeat weekkly while under 10 reviewed fm precautions (2) Advanced maternal age (AMA) in : Status: Acute Comment: growth US 36 weeks discussed delivery by 39 weeks or increased testing if desired delivery by 40 weeks to reduce medical interventions. (3) AMA (advanced maternal age) multigravida 35+: Status: Acute (4) Supervision of normal : Status: Acute Qualifiers: Normal : other normal Trimester: second trimester Qualified Code(s): Z34.82 - Encounter for supervision of other normal , second trimester Comment: [id number], JAZMIN 12/08/24, surprise Kevin Adams, Terrance (5) : Status: Acute Qualifiers: Weeks of gestation: 38 weeks Qualified Code(s): Z3A.38 - 38 weeks gestation of Comment: Neg GBS. elects NIPT WITHOUT Gender, Low risk; nl anatomy US (6) FH: ALS (amyotrophic lateral sclerosis): Status: Acute Comment: Father- (7) Hyperlipidemia: Status: Acute Comment: Trying to control with diet alone Orders: Orders POC Urinalysis 2 Dip (Clinic) Today Plan Details Additional Comments: ACOG trimester education reviewed and updated. see problem list details for updated plan management information and see below for orders placed at this visit. GA appropriate handout given. 11/24/24 2592 <Electronically signed by Radha dalal CNM> Date _ Radha Valverde CNM [facility] Signature: Date (if applicable) CC: ~ [facility] Work Phone: [phone]) 559-911107-16-2025 Progress [facility] [address] [place] [address], [address] [place] [address] OFFICE VISIT Date of Service: 11/16/24 MR#: [id number] Acct: [id number] Name: BRIGID BELLA Rep #: [id number] : 1985 Provider: Dr. Celestino Mcconnell MD Age/Sex: 39/F [place] [facility] [place]: Signed Intake Vital Signs 09/29/24 15:15 11/11/24 15:41 11/16/24 13:49 Height 5 ft 5 in 5 ft 5 in 5 ft 5 in Weight: 167 lb BMI 27.8 BP 113/73 Intake Visit Reasons: 37 wk ob Chief Complaint: 37 Week OB Distance Education Teacher Required: No Is patient in pain?: No Allergies No Known Allergies Allergy (Verified 11/16/24 13:50) Medications ?Medication ?Instructions ?Recorded ?Confirmed ?Type multivitamin no.47-iron fum 27 cap PO 05/20/24 5 History mg-folate no.1 1 mg-dha 300 mg capsule (PNV-DHA) Last Menstrual Period: 03/03/24 Zika: Zika virus screening: Negative : No PFSH PFSH Medical History Spontaneous onset of labor (spontaneous vaginal delivery) Two vessel umbilical cord Supervision of normal Surgical History [place] teeth extracted No pertinent past surgical history [...] 2 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 Date Name GA/Weeks Outcome Route Bth Weight Infant Gen Labor Lgth Anesthesia Del Locatn Provider FOB Unknown 01/08/20 John 40 live - full term 7# 10oz M veronica 12 hours none [facility] [place] Dr. Ibeth Carlos 06/17/22 [place] 40 live - full term 8lbs 1oz Male n one [facility] Trish Murray CNM Terrance Delivery Date: 06/17/22 Last Updated by: Diandra Truong see problem list for complications HPI 37 wk ob Details: BRIGID BELLA is a 39 year old who presents for routine OB visit. OB Visit JAZMIN Calculator Estimated Delivery Date Method Current WG Current Estimate 12/08/24 LMP (Certain) 36w 6d Expected Delivery Route/Plan Labor Preferences- CB/BF [...] 142 lb (+0 oz) 113/76 -?-?-?-?-?-?-?-?-?-?-?-?- 159 -?--?-?-?-?-?-?-?-?-?-?-?- LC- measurements con with LMP. 13wks. desires nipt. no further bleeding. 07/05/24 -?-?-?-?-?-?-?-?-?-?-?-?- 17w 5d 146 lb 4 oz (+4 lb 4 oz) 101/68 Negative -?-?-?-?-?-?-?-?-?-?-?-?- Negative 147 -?-?-?-?-?-?-?-?-?-?-?-?- JV- low risk nip t. anatomy us ordered. works in [employer] and wants anatomy scan [place] 08/03/24 -?-?-?-?-?-?-?-?-?-?-?-?- 21w 6d 152 lb (+10 lb) 102/64 Negative -?-?-?-?-?-?-?-?-?-?-?-?- Negative 136 -?-?-?-?-?-?-?-?-?-?-?-?- MH-No VB. Angella garcia. Nl anatomy reviewed. Some gastric reflux/pepcid 08/31/24 -?-?-?-?-?-?-?-?-?-?-?--?- 25w 6d 156 lb 6 oz (+14 lb 6 oz) 107/71 Negative -?-?-?-?-?-?-?-?-?-?-?-?- Negative 140 -?-?-?-?-?-?-?-?-?-?-?-?- SM- no vb jamari narayan good fm. [place] 09/29/24 -?-?-?-?-?-?-?-?-?-?-?-?- 30w 0d 164 [...] in lasts for baby's first 8 months oflife. if baby gets the RSV vaccine after , it can be given at 1 week of age and lasts for 5-6 months. 10/28/24 -?-?-?-?-?-?-?-?-?-?-?-?- 34w 1d 165 lb 2 oz (+23 lb 2 oz) 111/69 Negative -?-?-?-?-?-?-?-?-?-?-?-?- Negative 140 34 Cephalic -?-?-?-?-?-?-?-?-?-?-?-?- JV- patient rece ived the RSV vaccine This week. 10/24/24. no lof, vaginal bleeding, or dec fm. JV- patient received the RSV vaccine This week. 10/24/24. no lof, vaginal bleeding, or dec fm. growth scan 36 weeks 11/11/24 -?-?-?-?-?-?-?-?-?-?-?-?- 36w 1d 165 lb 2 oz (+23 lb 2 oz) 120/78 Negative -?-?-?-?-?-?-?-?-?-?-?-?- Negative 130 35 Cephalic -?-?-?-?-?-?-?-?-?-?-?-?- KW- no vb/lof/ct x. good fm. GBS today. declines vaginal exam today. 11/16/24 -?-?-?-?-?-?-?-?-?-?-?-?- 36w 6d 167 lb (+25 lb) 113/73 Negative -?-?-?-?-?-?-?-?-?-?-?-?- Negative 140 36 Cephalic -?-?-?-?-?-?-?-?-?-?-?-?- SM- no vb lof go od fm no regular ctx discussed 11 percentile and 8 cm chris, recommend repeat chris weekly. ACOG First Trimester First Trimester: Desire for [...] Signs and Symptoms of Preeclampsia and Education Results POC Urinalysis 2 Dip (Clinic) Office Urine Glucose Negative Last Edit by Deborah Suarez on 11/16/24 14 :01 Office Urine Protein Negative Last Edit by Deborah Suarez on 11/16/24 14 :01 Coding Level of Care Code OB Routine Diagnoses 36 weeks gestation of Z3A.36 Weeks of gestation: 36 weeks Encounter for supervision of other normal in second trimester Z34.82 Normal : other normal Trimester: second trimester Advanced maternal age (AMA) in AMA (advanced maternal age) multigravida 35+ O09.529 CHRIS (amniotic fluid index) borderline low O28.8 FH: ALS (amyotrophic lateral sclerosis) Z82.0 Hyperlipidemia E78.5 Assessment and Plan Assessment and Plan (1) : Status: Acute Qualifiers: Weeks of gestation: 36 weeks Qualified Code(s): Z3A.36 - 36 weeks gestation of Comment: Neg GBS. elects NIPT WITHOUT Gender, Low risk; nl anatomy US (2) Supervision of normal : Status: Acute Qualifiers: Normal : other normal Trimester: second trimester Qualified Code(s): Z34.82 - Encounter for supervision of other normal , second trimester Comment: [id number], JAZMIN 12/08/24, surprise Kevin Adams, Terrance (3) Advanced maternal age (AMA) in : Status: Acute Comment: growth US 36 weeks discussed delivery by 39 weeks or increased testing if desired delivery by 40 weeks to reduce medical interventions. (4) AMA (advanced maternal age) multigravida 35+: Status: Acute (5) CHRIS (amniotic fluid index) borderline low: Status: Acute Comment: repeat weekkly while under 10 reviewed fm precautions (6) FH: ALS (amyotrophic lateral sclerosis): Status: Acute Comment: Father- (7) Hyperlipidemia: Status: Acute Comment: Trying to control with diet alone Orders: Orders POC Urinalysis 2 Dip (Clinic) Today 11/16/24 1437 monserrat MONAE> Date _ Linda Mcconnell MD [facility] Signature: Date (if applicable) CC: ~ [facility] [id number] Progress note Author Linda Mcconnell [facility] Note Date/Time November 16, 2024 2:36 pm [facility] [address] [place] [address], [address] [place] [address] OFFICE VISIT Date of Service: 11/16/24 MR#: [id number] Acct: [id number] Name: BRIGID BELLA Rep #: [id number] : 1985 Provider: Dr. Celestino Mcconnell MD Age/Sex: 39/F [place] [facility] [place]: Signed Intake Vital Signs 09/29/24 15:15 11/11/24 15:41 11/16/24 13:49 Height 5 ft 5 in 5 ft 5 in 5 ft 5 in Weight: 167 lb BMI 27.8 BP 113/73 Intake Visit Reasons: 37 wk ob Chief Complaint: 37 Week OB Distance Education Teacher Required: No Is patient in pain?: No Allergies No Known Allergies Allergy (Verified 11/16/24 13:50) Medications ?Medication ?Instructions ?Recorded ?Confirmed ?Type multivitamin no.47-iron fum 27 cap PO 05/20/24 5 History mg-folate no.1 1 mg-dha 300 mg capsule (PNV-DHA) Last Menstrual Period: 03/03/24 Zika: Zika virus screening: Negative : No PFSH PFSH Medical History Spontaneous onset of labor (spontaneous vaginal delivery) Two vessel umbilical cord Supervision of normal Surgical History [place] teeth extracted No pertinent past surgical history [...] 2 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 Date Name GA/Weeks Outcome Route Bth Weight Infant Gen Labor Lgth Anesthesia Del Locatn Provider FOB Unknown 01/08/20 John 40 live - full term 7# 10oz M veronica 12 hours none [facility] [place] Dr. Ibeth Carlos 06/17/22 [place] 40 live - full term 8lbs 1oz Male n one [facility] Trish Murray CNM Terrance Delivery Date: 06/17/22 Last Updated by: Diandra Truong see problem list for complications HPI 37 wk ob Details: BRIGID BELLA is a 39 year old who presents for routine OB visit. OB Visit JAZMIN Calculator Estimated Delivery Date Method Current WG Current Estimate 12/08/24 LMP (Certain) 36w 6d Expected Delivery Route/Plan Labor Preferences- CB/BF [...] 142 lb (+0 oz) 113/76 -?-?-?-?-?-?-?-?-?-?-?-?- 159 -?--?-?-?-?-?-?-?-?-?-?-?- LC- measurements con with LMP. 13wks. desires nipt. no further bleeding. 07/05/24 -?-?-?-?-?-?-?-?-?-?-?-?- 17w 5d 146 lb 4 oz (+4 lb 4 oz) 101/68 Negative -?-?-?-?-?-?-?-?-?-?-?-?- Negative 147 -?-?-?-?-?-?-?-?-?-?-?-?- JV- low risk nip t. anatomy us ordered. works in [employer] and wants anatomy scan in [place] 08/03/24 -?-?-?-?-?-?-?-?-?-?-?-?- 21w 6d 152 lb (+10 lb) 102/64 Negative -?-?-?-?-?-?-?-?-?-?-?-?- Negative 136 -?-?-?-?-?-?-?-?-?-?-?-?- MH-No VB. Angella garcia. Nl anatomy reviewed. Some gastric reflux/pepcid 08/31/24 -?-?-?-?-?-?-?-?-?-?-?--?- 25w 6d 156 lb 6 oz (+14 lb 6 oz) 107/71 Negative -?-?-?-?-?-?-?-?-?-?-?-?- Negative 140 -?-?-?-?-?-?-?-?-?-?-?-?- SM- no vb jamari deluna fm. [place] 09/29/24 -?-?-?-?-?-?-?-?-?-?-?-?- 30w 0d 164 [...] 2 oz (+23 lb 2 oz) 111/69 Negative -?-?-?-?-?-?-?-?-?-?-?-?- Negative 140 34 Cephalic -?-?-?-?-?-?-?-?-?-?-?-?- JV- patient rece ived the RSV vaccine This week. 10/24/24. no lof, vaginal bleeding, or dec fm. JV- patient received the RSV vaccine This week. 10/24/24. no lof, vaginal bleeding, or dec fm. growth scan 36 weeks 11/11/24 -?-?-?-?-?-?-?-?-?-?-?-?- 36w 1d 165 lb 2 oz (+23 lb 2 oz) 120/78 Negative -?-?-?-?-?-?-?-?-?-?-?-?- Negative 130 35 Cephalic -?-?-?-?-?-?-?-?-?-?-?-?- KW- no vb/lof/ct x. good fm. GBS today. declines vaginal exam today. 11/16/24 -?-?-?-?-?-?-?-?-?-?-?-?- 36w 6d 167 lb (+25 lb) 113/73 Negative -?-?-?-?-?-?-?-?-?-?-?-?- Negative 140 36 Cephalic -?-?-?-?-?-?-?-?-?-?-?-?- SM- no vb lof go od fm no regular ctx discussed 11 percentile and 8 cm chris, recommend repeat chris weekly. ACOG First Trimester First Trimester: Desire for [...] Monitoring, Signs and Symptoms of Preeclampsia and [place] Education Results POC Urinalysis 2 Dip (Clinic) Office Urine Glucose Negative Last Edit by Deborah Suarez on 11/16/24 14 :01 Office Urine Protein Negative Last Edit by Deborah Suarez on 11/16/24 14 :01 Coding Level of Care Code OB Routine Diagnoses 36 weeks gestation of Z3A.36 Weeks of gestation: 36 weeks Encounter for supervision of other normal in second trimester Z34.82 Normal : other normal Trimester: second trimester Advanced maternal age (AMA) in AMA (advanced maternal age) multigravida 35+ O09.529 CHRIS (amniotic fluid index) borderline low O28.8 FH: ALS (amyotrophic lateral sclerosis) Z82.0 Hyperlipidemia E78.5 Assessment and Plan Assessment and Plan (1) : Status: Acute Qualifiers: Weeks of gestation: 36 weeks Qualified Code(s): Z3A.36 - 36 weeks gestation of Comment: Neg GBS. elects NIPT WITHOUT Gender, Low risk; nl anatomy US (2) Supervision of normal : Status: Acute Qualifiers: Normal : other normal Trimester: second trimester Qualified Code(s): Z34.82 - Encounter for supervision of other normal , second trimester Comment: [id number], JAZMIN 12/08/24, surprise PC Kevin Lopez, Terrance (3) Advanced maternal age (AMA) in : Status: Acute Comment: growth US 36 weeks discussed delivery by 39 weeks or increased testing if desired delivery by 40 weeks to reduce medical interventions. (4) AMA (advanced maternal age) multigravida 35+: Status: Acute (5) CHRIS (amniotic fluid index) borderline low: Status: Acute Comment: repeat weekkly while under 10 reviewed fm precautions (6) FH: ALS (amyotrophic lateral sclerosis): Status: Acute Comment: Father- (7) Hyperlipidemia: Status: Acute Comment: Trying to control with diet alone Orders: Orders POC Urinalysis 2 Dip (Clinic) Today 11/16/24 7021 <Electronically signed by Linda german MD> Date _ Linda Mcconnell MD Cosigner Signature: Date (if applicable) CC: ~ [facility] [employer] [facility] Work Phone: [phone]) [phone] Radiology Diagnostic study note [facility] Imaging Services [address] [place] [address] OB Limited (No Biometrics) MR#: [id number] Acct: [id number] Name: BRIGID BELLA Rep #: [id number] : 1985 F 39 From: Ildefonso Rowe MD PCP: Dr. Yousuf rOtiz MD Status: REG CLI Study:OB Limited (No Biometrics) Date of Exam : 11/14/24 Exam# [id number] Ordering Dr: Radha Valverde CNM PROCEDURE: OB LIMITED (NO BIOMETRICS) 11/14/2024 REASON FOR EXAM: CHRIS TECHNIQUE: OB LIMITED (NO BIOMETRICS) COMPARISON: Prior study dated November 02, 2024. FINDINGS Number: 1 Position: Vertex Placental Position: Left lateral and not low-lying. Placental Abnormalities: No evidence of previa. ESTIMATED GESTATIONAL AGE: Baseline: 36 weeks and 4 days ESTIMATED DATE OF DELIVERY: Baseline: December 08, 2024. BIOPHYSICAL ASSESSMENT: Amniotic Fluid Volume: 2.6 cm Amniotic Fluid Index: 8.2 (8-24 cm normal range) Cardiac Motion: (average) Trunk and Limb Motion: Present. MATERNAL ANATOMY: Adnexa: Neither maternal ovary is successfully identified. US/OB Limited (No Biometrics) IMPRESSION: Amniotic fluid index is lower limits of normal. Reading Location: [facility] CC: LIMA Valverde; Dr. Yousuf Ortiz MD ~ Pharmaceutical Specialty Representative: Signed [facility]07-06-2025 Radiology Diagnostic study note [facility] Imaging Services [address] [place], [place] [address] OB Limited With Biometrics MR#: [id number] Acct: [id number] Name: BRIGID BELLA Rep #: [id number] : 1985 F 39 From: Pet er Peer DO PCP: Dr. Yousuf Ortiz MD Status: REG CLI Study:OB Limited With Biometrics Date of Exam : 11/02/24 Exam# [id number] Ordering Dr: Sheyla Whiting DO PROCEDURE: OB LIMITED WITH BIOMETRICS 11/02/2024 [...] due date December 19, 2024 [facility] CC: Dr. Yousuf Ortiz MD; Dr. Sheyla Small DO ~ Pharmaceutical Specialty Representative: Signed [facility]06-27-2025 Progress [facility] [address], [address] [place] [address] OFFICE VISIT Date of Service: 10/28/24 MR#: [id number] Acct: [id number] Name: BRIGID BELLA Rep #: [id number] : 1985 Provider: Dr. 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 Date Name GA/Weeks Outcome Route Bth Weight Infant Gen Labor Lgth Anesthesia Del Locatn Provider FOB Unknown 01/08/20 [place] 40 live - full term 7# 10oz M veronica 12 hours none [facility] [place] Dr. Ibeth Carlos 06/17/22 [place] 40 live - full term 8lbs 1oz Male n one [facility] Trish Murray CNM Terrance Delivery Date: 06/17/22 [...] nip t. anatomy us ordered. works in [employer] and wants anatomy scan in [place]. 08/03/24 -?-?-?-?-?-?-?-?-?-?-?-?- 21w 6d 152 lb (+10 lb) 102/64 Negative -?-?-?-?-?-?-?-?-?-?-?-?- Negative 136 -?-?-?-?-?-?-?-?-?-?-?-?- MH-No VB. Angella garcia. Nl anatomy reviewed. Some gastric reflux/pepcid 08/31/24 -?-?-?-?-?-?-?-?-?-?-?-?- 25w 6d 156 lb 6 oz (+14 lb 6 oz) 107/71 Negative -?-?-?-?-?-?-?-?-?-?-?-?- Negative 140 -?-?-?-?-?-?-?-?-?-?-?-?- SM- no vb crampi sylvain good fm. [place] 09/29/24 -?-?-?-?-?-?-?-?-?-?-?-?- 30w 0d 164 [...] in lasts for baby's first 8 months oflife. if baby gets the RSV vaccine after [...] Signs and Symptoms of Preeclampsia and Education Coding Level of Care Code OB [...] of other normal , second trimester Comment: [id number], JAZMIN 12/08/24, surprise Kevin Adams, Terrance (3) [...] of elderly multigravida, unspecified trimester 10/28/24 1422 e Velde DO> Date _ Sheyla Boyle Signature: Date (if applicable) CC: ~ [facility]06-27-2025 Progress note Author Sheyla Polk [facility] Note Date/Time October 28, 2024 2:22 pm [facility] [address] [place] [address], [address] [place] [address] OFFICE VISIT Date of Service: 10/28/24 MR#: [id number] Acct: [id number] Name: BRIGID BELLA Rep #: [id number] : 1985 Provider: Dr. 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 Date Name GA/Weeks Outcome Route Bth Weight Infant Gen Labor Lgth Anesthesia Del Locatn Provider FOB Unknown 01/08/20 [place] 40 live - full term 7# 10oz M veronica 12 hours none [place] Dr. Ibeth Carlos 06/17/22 [place] 40 live - full term 8lbs 1oz Male n one [facility] Trish Murray ROSA Terrance Delivery Date: 06/17/22 Last Updated by: [...] nip t. anatomy us ordered. works in [employer] and wants anatomy scan in [employer]. 08/03/24 -?-?-?-?-?-?-?-?-?-?-?-?- 21w 6d 152 lb (+10 lb) 102/64 Negative -?-?-?-?-?-?-?-?-?-?-?-?- Negative 136 -?-?-?-?-?-?-?-?-?-?-?-?- MH-No VB. Angella garcia. Nl anatomy reviewed. Some gastric reflux/pepcid 08/31/24 -?-?-?-?-?-?-?-?-?-?-?-?- 25w 6d 156 lb 6 oz (+14 lb 6 oz) 107/71 Negative -?-?-?-?-?-?-?-?-?-?-?-?- Negative 140 -?-?-?-?-?-?-?-?-?-?-?-?- SM- no vb crampi ng good fm. [place]ing [place] 09/29/24 -?-?-?-?-?-?-?-?-?-?-?-?- 30w 0d 164 [...] Signs and Symptoms of Preeclampsia and Education Coding Level of Care Code OB [...] of other normal , second trimester Comment: [id number], JAZMIN 12/08/24, Kevin Schaeffer, Terrance (3) : Status: Acute Qualifiers: Weeks [...] Mendoza DO> Date _ [facility] Small [facility] Signature: Date (if applicable) CC: ~ [facility] Work Phone: 1(803) 691-726705-29-2025 Progress [facility] [address] [place] [address], [place] [address] OFFICE VISIT Date of Service: 09/29/24 MR#: [id number] Acct: [id number] Name: BRIGID BELLA Rep #: [id number] : 1985 Provider: LIMA Valverde Age/Sex: 39/F [place] [facility] [place]: Signed Intake Vital Signs 08/03/24 08:30 08/03/24 08:46 08/31/24 09:09 09/29/24 15:15 Height 5 ft 5 in 5 ft 5 in 5 ft 5 in 5 ft 5 in Weight: 164 lb 2 oz BMI 27.3 BP 107/74 Intake Visit Reasons: 30wk ob Chief Complaint: 30wk OB Distance Education Teacher Required: No Is patient in pain?: No [...] umbilical cord Supervision of normal Surgical History [place] teeth extracted No pertinent past surgical history [...] 2 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 Date Name GA/Weeks Outcome Route Bth Weight Infant Gen Labor Lgth Anesthesia Del Locatn Provider FOB Unknown 01/08/20 [place] 40 live - full term 7# 10oz M veronica 12 hours none [place] Dr. Ibeth Carlos 06/17/22 [place] 40 live - full term 8lbs 1oz Male n one [facility] Trish Murray CNM Terrance Delivery Date: 06/17/22 [...] nip t. anatomy us ordered. works in [employer] and wants anatomy scan in [employer]. 08/03/24 -?-?-?-?-?-?-?-?-?-?-?-?- 21w 6d 152 lb (+10 lb) 102/64 Negative -?--?-?-?-?-?-?-?-?-?-?-?- Negative 136 -?-?-?-?-?-?-?-?-?-?-?-?- MH-No VB. Angella garcia. Nl anatomy reviewed. Some gastric reflux/pepcid 08/31/24 -?-?-?-?-?-?-?-?-?-?-?-?- 25w 6d 156 lb 6 oz (+14 lb 6 oz) 107/71 Negative -?-?-?-?-?-?-?-?-?-?-?-?- Negative 140 -?-?-?-?-?-?-?-?-?--?-?-?- SM- no vb crampi ng good fm. [place] 09/29/24 -?-?-?-?-?-?-?-?-?-?-?-?- 30w 0d 164 [...] Monitoring, Signs and Symptoms of Preeclampsia and [place] Education ROS Const Reports system reviewed and [...] Performing Provider: Radha Valverde CNM Performing Location: [facility] Administered by: Hailey Stallworth on 09/29/24 15:27 Dose Route Admin Location Dispensed Lot Number Expiration Date NDC Dental Internship 0.5 mL IM Left Deltoid 0.5 mL [id number] 08/31/26 82761-799-92 SANOF I-PASTEUR VIS Given Date VIS Provided [...] of other normal , second trimester Comment: [id number], JAZMIN 12/08/24, surprise Kevin Adams, Terrance (3) [...] the past year?: No 09/29/24 1542 s CNM> Date _ Radha Abram LIMA Cosigner Signature: Date (if applicable) CC: ~ [facility]05-29-2025 Progress note Author Rahda Valverde [facility] Note Date/Time September 29, 2024 3:42p [facility] [address], [address] [place] [address] OFFICE VISIT Date of Service: 09/29/24 MR#: [id number] Acct: [id number] Name: BRIGID BELLA Rep #: [id number] : 1985 Provider: LIMA Valverde Age/Sex: 39/F [place] [facility] [place]: Signed Intake Vital Signs 08/03/24 08:30 08/03/24 08:46 08/31/24 09:09 09/29/24 15:15 Height 5 ft 5 in 5 ft 5 in 5 ft 5 in 5 ft 5 in Weight: 164 lb 2 oz BMI 27.3 BP 107/74 Intake Visit Reasons: 30wk ob Chief Complaint: 30wk OB Distance Education Teacher Required: No Is patient in pain?: No [...] umbilical cord Supervision of normal Surgical History [place] teeth extracted No pertinent past surgical history [...] 2 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 Date Name GA/Weeks Outcome Route Bth Weight Infant Gen Labor Lgth Anesthesia Del Locatn Provider FOB Unknown 01/08/20 [place] 40 live - full term 7# 10oz M veronica 12 hours none [place] [place] Dr. Ibeth Carlos 06/17/22 [place] 40 live - full term 8lbs 1oz Male n one [facility] Trish Murray CNAbel Jenkinswn Delivery Date: 06/17/22 Last Updated by: Diandra [...] nip t. anatomy us ordered. works in [employer] and wants anatomy scan in [place]. 08/03/24 -?-?-?-?-?-?-?-?-?-?-?-?- 21w 6d 152 lb (+10 lb) 102/64 Negative -?--?-?-?-?-?-?-?-?-?-?-?- Negative 136 -?-?-?-?-?-?-?-?-?-?-?-?- MH-No VB. Angella garcia. Nl anatomy reviewed. Some gastric reflux/pepcid 08/31/24 -?-?-?-?-?-?-?-?-?-?-?-?- 25w 6d 156 lb 6 oz (+14 lb 6 oz) 107/71 Negative -?-?-?-?-?-?-?-?-?-?-?-?- Negative 140 -?-?-?-?-?-?-?-?-?--?-?-?- SM- no vb crampi ng good fm. [place] 09/29/24 -?-?-?-?-?-?-?-?-?-?-?-?- 30w 0d 164 [...] Performing Provider: Radha Valverde CNM Performing Location: [facility] Administered by: Hailey Stallworth on 09/29/24 15:27 Dose Route Admin Location Dispensed Lot Number Expiration Date NDC Dental Internship 0.5 mL IM Left Deltoid 0.5 mL [id number] 08/31/26 27423-934-63 SANOF I-PASTEUR VIS Given Date VIS Provided [...] of other normal , second trimester Comment: [id number], JAZMIN 12/08/24, Kevin Schaeffer, Terrance (3) : Status: Acute Qualifiers: Weeks [...] in the past year?: No 09/29/24 1542 <Electronically signed by Radha dlaal CNM> Date _ Radha Valverde CNM Cosigner Signature: Date (if applicable) CC: ~ [facility] [employer] Work Phone: 1(663) 404-662004-02-2025 Evaluation note* Diagnosis Onset Date Resolution Status [...] normal acut e October 28, 2024 1:51pm [facility] Work Phone: 1(693) 186-764304-02-2025 Evaluation note* Diagnosis Onset Date Resolution Status [...] normal acut e November 11, 2024 3:34pm [facility] Work Phone: 1(191) 131-755504-02-2025 Evaluation note* Diagnosis Onset Date Resolution Status [...] (AMA) in acute November 11, 2024 3:34pm CHRIS (amniotic fluid index) borderline low acute November 11, 2024 3:34pm AMA (advanced maternal age) multigravida 35+ acute November 11, 2024 3:34pm FH: ALS (amyotrophic lateral sclerosis) acute November 11, 2024 3:34pm Hyperlipidemia acute November 11, 2024 3:34pm acute November 11 3:34pm Supervision of normal acut e November 11, 2024 3:34pm Advanced maternal age (AMA) in acute November 16, 2024 1:47pm CHRIS (amniotic fluid index) borderline low acute November 16, 2024 1:47pm AMA (advanced maternal age) multigravida 35+ acute November 16, 2024 1:47pm FH: ALS (amyotrophic lateral sclerosis) acute November 16, 2024 1:47pm Hyperlipidemia acute November 16, 2024 1:47pm acute November 16 1:47pm Supervision of normal acut e November 16, 2024 1:47pm [facility] Work Phone: 1(445) 366-368804-02-2025 Evaluation note* Diagnosis Onset Date Resolution Status [...] normal acut e November 11, 2024 3:34pm Advanced maternal age (AMA) in acute November 16, 2024 1:47pm CHRIS (amniotic fluid index) borderline low acute November 16, 2024 1:47pm AMA (advanced maternal age) multigravida 35+ acute November 16, 2024 1:47pm FH: ALS (amyotrophic lateral sclerosis) acute November 16, 2024 1:47pm Hyperlipidemia acute November 16, 2024 1:47pm acute November 16 1:47pm Supervision of normal acut e November 16, 2024 1:47pm Advanced maternal age (AMA) in acute November 24, 2024 3:54pm CHRIS (amniotic fluid index) borderline low acute November 24, 2024 3:54pm AMA (advanced maternal age) multigravida 35+ acute November 24, 2024 3:54pm FH: ALS (amyotrophic lateral sclerosis) acute November 24, 2024 3:54pm Hyperlipidemia acute November 24, 2024 3:54pm acute November 24 3:54pm Supervision of normal acut e November 24, 2024 3:54pm [facility] Work Phone: 1(187) 523-880104-02-2025 Evaluation note* Diagnosis Onset Date Resolution Status [...] normal acut e November 11, 2024 3:34pm Advanced maternal age (AMA) in acute November 16, 2024 1:47pm CHRIS (amniotic fluid index) borderline low acute November 16, 2024 1:47pm AMA (advanced maternal age) multigravida 35+ acute November 16, 2024 1:47pm FH: ALS (amyotrophic lateral sclerosis) acute November 16, 2024 1:47pm Hyperlipidemia acute November 16, 2024 1:47pm acute November 16 1:47pm Supervision of normal acut e November 16, 2024 1:47pm Advanced maternal age (AMA) in acute November 24, 2024 3:54pm CHRIS (amniotic fluid index) borderline low acute November 24, 2024 3:54pm AMA (advanced maternal age) multigravida 35+ acute November 24, 2024 3:54pm FH: ALS (amyotrophic lateral sclerosis) acute November 24, 2024 3:54pm Hyperlipidemia acute November 24, 2024 3:54pm acute November 24 3:54pm Supervision of normal acut e November 24, 2024 3:54pm Advanced maternal age (AMA) in acute December 01, 2024 3:09pm CHRIS (amniotic fluid index) borderline low acute December 01, 2024 3:09pm AMA (advanced maternal age) multigravida 35+ acute December 01, 2024 3:09pm FH: ALS (amyotrophic lateral sclerosis) acute December 01, 2024 3:09pm Hyperlipidemia acute December 01, 2024 3:09pm acute December 01 3:09pm Supervision of normal acut e December 01, 2024 3:09pm [facility] Work Phone: 1(115) 257-634403-04-2025 Evaluation note* Diagnosis Onset Date Resolution Status [...] normal acut e October 12, 2024 8:49am [facility] Work Phone: 1(118) 625-890603-04-2025 Evaluation note* Diagnosis Onset Date Resolution Status [...] normal acut e October 28, 2024 1:51pm [facility] Work Phone: 1([phone]) 876-395101-31-2025 Evaluation note* Diagnosis Onset Date Resolution Status [...] normal acut e September 29, 2024 3:12pm [facility] [employer] [facility] Work Phone: 1(603) 601-708004-21-2024 NoteHNO ID: [id number] Author: TITA HOUSER APRN.DOMINATRIX Service: ? Author Type: Nurse Practitioner Type: [...] is provided by the patient. No speech language pathologist was used. Eye Problem This is a [...] rhonchi or rales. Chest: (more content not included)...[facility]04-21-2024 History of Present illness Narrative* Tita Houser APRN.DOMINATRIX - 08/23/2023 10:09 AM EDT This note was created using [employer]. Subjective Brigid Bella is a 38 year [...] is provided by the patient. No speech language pathologist was used. Eye Problem This is a [...] sooner if worsening of symptoms Tita Houser APRN.DOMINATRIX documented in this encounter[facility]03-[facility] Miscellaneous Notes* Telephone Encounter - Juan [...] rx to requested pharmacy. documented in this encounterGrant Hospital11-17-2023 NoteHNO ID: [id number] Author: Jairo Romero MD Service: ? Author [...] last [address] 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 Melasma on forehead may be slightly is analyst. Head: Normocephalic, no masses, lesions, tenderness or [...] fL 89.7 MCH 2 (more content not included)...[facility]08-25-2023 NoteHNO ID: [id number] Author: Jairo Romero MD Service: ? Author [...] which included preparing to see the patient, [id number] patient care, completing clinical documentation, obtaining and/or reviewing separately obtained history, performing a medically appropriate examination, counseling and educating the patient/family/caregiver, and ordering medications, tests, or procedures. Jairo Romero [facility]08-25-2023 History of Present illness Narrative* Jairo [...] which included preparing to see the patient, [id number] patient care, completing clinical documentation, obtaining and/or reviewing separately obtained history, performing a medically appropriate examination, counseling and educating the pat ient/family/caregiver, and ordering medications, tests, or procedures. Jairo Romero MD documented in this encounterGrant Hospital02-15-2023 Progress note Author Trish Murray [facility] June 18, 2022 10:11am Note Date/Time June 18, 2022 10:11am [facility] Medical Records Department [address] [place] [address] Progress Note - OBGYN 06/18/22 1009 MR#: [id number] Acct: [id number] Name: BRIGID BELLA Rep #:[id number] : 1985 37 From: Trish Murray CNM PCP: Care Physician,No Primary Status :ADM IN Location: [id number] Subjective Subjective Patient doing well without complaints. [...] Cosigner Signature (if applicable): CC: ~ Signed [facility] Work Phone: 1(483) 423-980702-14-2023 Discharge summary Author Trish Murray [facility] June 17, 2022 1:53am Note Date/Time June 17, 2022 1:53am [facility] Medical Records Department [address] [place] [address] [place] [address] Instructions for Home/Discharge Instructions 06/17/22 0152 MR#: [id number] Acct: [id number] Name: BRIGID BELLA Rep #:[id number] : 1985 37 From: [...] Provider: Trish Murray Primary Care Provider: Nick PhysicianClair Primary Discharge Orders/Prescriptions Prescriptions: No Action DHA 200 mg capsule PO Referrals / Follow Up: Nick Adams,Clair Primary [Primary Care Provider] - 06/17/22 0153<Electronically signed by Trish Murray CNM>Trish Murray CNM CC: No Primary Care Physician ~ Signed [facility] Work Phone: 1(759) 933-997402-14-2023 History and physical note Author Trish Murray [facility] June 17, 2022 1:47am Note Date/Time June 17, 2022 1:47am [facility] Medical Records Department [address] [place] [address] [place] [address] H&P 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 06/17/22 0138 MR#: [id number] Acct: [id number] Name: BRIGID BELLA Rep #:[id number] : 1985 37 From: Trish Murray CNM PCP: Nick Physician,No Primary Status :ADM IN [facility] - General General Date of Admission: 06/17/22 [...] 1 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 Ibeth Carlos Visit Details Expected [...] h on 05/02 at 47th% and normal CHRIS. rpt in 4 weeks. 05/23/22 -?-?-?-?-?-?-?-?-?-?-?-?- 36w [...] Baby A Baseline: 125, loss of pick and shovel man Variability:: Moderate Accelerations:: 15 x 15 Decelerations:: [...] 2 vessel cord I have reviewed the [facility] and made any clinically relevant updates. Dr. Mcconnell updated on POC, admission and exam. co-management for 2 vessel cord 06/17/22 0147 <Electronically signed by Trish Murray CNM> Cosigner Signature (if applicable): CC: LIMA Murray; No Primary Care Physician~ Signed [facility] Work Phone: 1([phone]) 919-408202-14-2023 Procedure [facility] 12-24-2021 Instructions* Patient Instructions* Tita Houser APRN.DOMINATRIX - 12/24/2021 12:09 PM EDT Headache, unspecified [...] No follow-ups on file. documented in this encounterGrant Hospital08-23-2022 History of Present illness Narrative* Tita Houser APRN.CNP - 12/24/2021 12:02 PM EDT This note was created using [employer]. Subjective Brigid Bella is a 36 year [...] is provided by the patient. No speech language pathologist was used. Headache This is a new [...] WITH FLUA+B, ROUTINE-pending Use Tylenol. Tita Houser APRN.DOMINATRIX documented in this encounterGrant Hospital08-23-2021 History of Present illness Narrative* Kathy [...] months. Side effects including teratogenicty dangers of terminal supervisor use explained;. Pertinent PE: hyperpigmented patches forehead [...] Kathy Rivera MD 12/24/2020 documented in this [id number] Instructions* Patient Instructions* Rach Lopez MA - 12/24/2020 9:33 AM EDT Effective 05/18/2019, all [employer] users will be automatically enrolled in paperless billing in an effort to save our environment by eliminating waste & reduce healthcare costs. A monthly notification will be sent to your e-mail address on file indicating you have a new billing statement available in gBox. If you prefer to receive paper statements, log into g[employer] at [employer] to update your e-mail, text and mail preferences (opting out of paperless billing). Please direct further questions to [employer] at [phone] or [email or web address]. documented in this encounterTexasHealthEvaluation note* Diagnosis Melasma- Primary Other dyschromia documented [facility] Diagnosis Melasma- Primary Other dyschromia Dermal nevus of left cheek Osborne angioma documented [facility] this encounter [facility]* Diagnosis Onset Date Resolution Status acute Supervision of normal [facility] Work Phone: Evaluation note* Diagnosis Headache, unspecified headache type- Primary Viral illness Unspecified viral infection, in conditions classified elsewhere and of unspecified site documented in this encounter [facility]* Diagnosis Onset Date Resolution Status acute Supervision of normal acute acute Supervision of normal acute Echogenic bowel of fetus acu te acute Supervision of normal [facility] Work Phone: Evaluation note* Diagnosis Onset [...] affecting a cute Anemia affecting a cute [facility] Work Phone: Evaluation note* Diagnosis Melasma- Primary Other dyschromia Encounter to establish care Other reasons for seeking consultation Depression screening Screening for depression documented in this encounter [facility]* Diagnosis Conjunctivitis of right eye, unspecified conjunctivitis type- Primary URI, acute Acute upper respiratory infections of unspecified site documented in this encounter [facility] (narrative)No reason for referral information availableBlSelect Specialty Hospital [facility] Services Work Phone: Summary Purpose Family History No Family History Records Found Relationship Condition Age at Onset Recorded Date/T yogesh mother Malignant neoplasm 68 Diabetes mellitus Unknown Hypertension Unknown High blood cholesterol Unknown father Family history of am yotrophic lateral sclerosis 67 grandmother Celiac disease Unknown Malignant neoplasm of colon Unknown grandmother Dementia Unknown grandfather High blood cholesterol Unknown Cardiac disease Unknown Myocardial infarction Unknown Advance Directives No Advanced Directives Records FoundDocuments on File Type Date Recorded Patient Cook Helper Fruit Expl anation Advance Directives and Living Will Advance Directive Response Recorded Date/ Time Name of Medical Power of Underwriting Director Terrance Shayne June 17, 2022 1:39am Living Will No June 17 1:39am Power of Underwriting Director Yes June 17, 2022 1:39am Hospital Course Note CLINICAL SUMMARY Please take this summary document to your follow up appointments. [facility] 01/10/20 11:23 [address] [place]. [address] PATIENT INFORMATION Name: BRIGID BELLA [address]: [address] [place] [id number] Age: 34 Years Phone: [phone] : 1985 12:00 MRN: ([id number] Sex: Female Race: White Ethnicity: Not Hispan/Lat Admitted From: Clinic or [facility] Medical Service: Obstetric Nurse Unit/Bed: (CO) DAVINA 8E89-91 Admit Date: 01/08/2020 13:46 PCP: Physician, PCP Unknown PHYSICIANS INVOLVED WITH CARE Attending Physicians: Ibeth Gómez MD, Shantel Jacobs - Gynecology, Obstetrics Admitting Physician: Ibeth Gómez MD, Shantel Jacobs - Gynecology, Obstetrics Primary Care Physician:Physician, PCP Unknown,Family Practice,,, - Consults: Praneeth MONAE, Zahida - Pediatrics Problems Active (more content not included)... Note Patient: BRIGID BELLA RN: ([facility])-[id number] Age: 34 years Sex: Female : 1985 [...] (more content not included)... Assessments Note Patient: BRIGID BELLA RN: ([facility])-[id number] Age: 34 years Sex: Female : 1985 [...] [facility] Diagnoses Sabiha Lugo MD [address] [place] [address] NicoleKathy MD [address] [place] [address] Chief Complaint and Reason for Visit Chief [...] Complaint Admit Date New OB, LMP 03/03/24, JAZMIN 12/08/24 June 03, 2024 11:20am 17wk OB [...] 3:34 pm Supervision of normal November 3:34pm Chief Complaint Admit Date 21 wk ob August 03, 2024 8:21 am 26wk ob/glucose August 31, 2024 8:5 9am 30wk ob September 29, 2024 3:12p m 32wk ob October 12, 2024 8:49 am 34 wk ob October 28, 2024 1:51 pm ADVANCED MATERNAL AGE IN November 02, 2024 3:35pm 36 wk ob November 11, 2024 3:34 pm AMNIOTIC FLUID LOW November 14, 2024 3:33 pm 37 wk ob November 16, 2024 1:47 pm Reason for Visit Admit Date Advanced [...] age (AMA) in November 11, 2024 3:34pm CHRIS (amniotic fluid index) borderline lo w November 11, 2024 3:34pm AMA (advanced maternal age) multigravida 35+ November 11, 2024 3:34pm FH: ALS (amyotrophic lateral sclerosis) November 11, 2024 3:34pm Hyperlipidemia November 11, 2024 3:34 pm November 11, 2024 3:34 pm Supervision of normal November 3:34pm Advanced maternal age (AMA) in November 16, 2024 1:47pm CHRIS (amniotic fluid index) borderline lo w November 16, 2024 1:47pm AMA (advanced maternal age) multigravida 35+ November 16, 2024 1:47pm FH: ALS (amyotrophic lateral sclerosis) November 16, 2024 1:47pm Hyperlipidemia November 16, 2024 1:47 pm November 16, 2024 1:47 pm Supervision of normal November 1:47pm Chief Complaint Admit Date 21 wk ob August 03, 2024 8:21 am 26wk ob/glucose August 31, 2024 8:5 9am 30wk ob September 29, 2024 3:12p m 32wk ob October 12, 2024 8:49 am 34 wk ob October 28, 2024 1:51 pm ADVANCED MATERNAL AGE IN November 02, 2024 3:35pm 36 wk ob November 11, 2024 3:34 pm AMNIOTIC FLUID LOW November 14, 2024 3:33 pm 37 wk ob November 16, 2024 1:47 pm chris check November 22, 2024 4:22 pm 38 wk ob November 24, 2024 3:54 pm Reason for Visit Admit Date Advanced [...] 3:34 pm Supervision of normal November 3:34pm Advanced maternal age (AMA) in November 16, 2024 1:47pm CHRIS (amniotic fluid index) borderline lo w November 16, 2024 1:47pm AMA (advanced maternal age) multigravida 35+ November 16, 2024 1:47pm FH: ALS (amyotrophic lateral sclerosis) November 16, 2024 1:47pm Hyperlipidemia November 16, 2024 1:47 pm November 16, 2024 1:47 pm Supervision of normal November 1:47pm Advanced maternal age (AMA) in November 24, 2024 3:54pm HCRIS (amniotic fluid index) borderline lo w November 24, 2024 3:54pm AMA (advanced maternal age) multigravida 35+ November 24, 2024 3:54pm FH: ALS (amyotrophic lateral sclerosis) November 24, 2024 3:54pm Hyperlipidemia November 24, 2024 3:54 pm November 24, 2024 3:54 pm Supervision of normal November 3:54pm Chief Complaint Admit Date 21 wk ob August 03, 2024 8:21 am 26wk ob/glucose August 31, 2024 8:5 9am 30wk ob September 29, 2024 3:12p m 32wk ob October 12, 2024 8:49 am 34 wk ob October 28, 2024 1:51 pm ADVANCED MATERNAL AGE IN November 02, 2024 3:35pm 36 wk ob November 11, 2024 3:34 pm AMNIOTIC FLUID LOW November 14, 2024 3:33 pm 37 wk ob November 16, 2024 1:47 pm chris check November 22, 2024 4:22 pm 38 wk ob November 24, 2024 3:54 pm 39 wk ob December 01, 2024 3:09 pm Reason for Visit Admit Date Advanced [...] 3:34 pm Supervision of normal November 3:34pm Advanced maternal age (AMA) in November 16, 2024 1:47pm CHRIS (amniotic fluid index) borderline lo w November 16, 2024 1:47pm AMA (advanced maternal age) multigravida 35+ November 16, 2024 1:47pm FH: ALS (amyotrophic lateral sclerosis) November 16, 2024 1:47pm Hyperlipidemia November 16, 2024 1:47 pm November 16, 2024 1:47 pm Supervision of normal November 1:47pm Advanced maternal age (AMA) in November 24, 2024 3:54pm CHRIS (amniotic fluid index) borderline lo w November 24, 2024 3:54pm AMA (advanced maternal age) multigravida 35+ November 24, 2024 3:54pm FH: ALS (amyotrophic lateral sclerosis) November 24, 2024 3:54pm Hyperlipidemia November 24, 2024 3:54 pm November 24, 2024 3:54 pm Supervision of normal November 3:54pm Advanced maternal age (AMA) in December 01, 2024 3:09pm CHRIS (amniotic fluid index) borderline lo w December 01, 2024 3:09pm AMA (advanced maternal age) multigravida 35+ December 01, 2024 3:09pm FH: ALS (amyotrophic lateral sclerosis) December 01, 2024 3:09pm Hyperlipidemia December 01, 2024 3:09 pm December 01, 2024 3:09 pm Supervision of normal November 3:09pm Health Concerns Infection Onset Date Last Indicated Resolved Time COVID-19 Rule-Out 12/24/2021 12/24/2021 Additional Source Comments INFORMATION SOURCE (unrecogn ized section and content) DATE CREATED AUTHOR 01/10/2020 Dillan Robison [facility] DATE CREATED AUTHOR AUTHOR'S ORGANIZ ATION 10/27/2020 [facility] DATE CREATED AUTHOR AUTHOR'S ORGANIZ ATION 12/24/2020 [facility] DATE CREATED AUTHOR AUTHOR'S ORGANIZ ATION 08/23/2023 [facility] DATE CREATED AUTHOR AUTHOR'S ORGANIZ ATION 07/29/2024 [facility] DATE CREATED AUTHOR AUTHOR'S ORGANIZ ATION 12/04/2024 [facility] Reason for Visit (unrecogniz ed section and content) Reason Comments Skin Lesion 1. Left cheek raised unchanged #2) abdomen red years unchanged Skin Discoloration Forehead, >1 year, s tarted during , changing in color, untreated. Specialty Diagnoses / Procedures Referred By Misti hsu Referred To Contact Dermatology Diagnoses Melasma Sabiha Cooper MD [address] [place] [address] Kathy Rivera MD [address] [place] [id number] Referral ID Status Reason Start Date Expiration Date V isits Requested Visits Authorized [id number] Closed Specialty Services Required/Magalis ent's Best Interest 10/26/2020 10/26/2021 1 1 Reason Comments Headache nasal drip, chills, cough, x 5 days, increased x 3 days Reason Comments Establish Care Wellness visit paper work Reason Comments Results Reason Comments Eye Problem R eye redness swelli ng crust this am Care Teams (unrecognized sec tion and content) [employer] Relationship Specialty Start Date End Date Sabiha Cooper MD [address] [place] [address] PCP - General Internal Medicine 11/23/20 [employer] Relationship Specialty Start Date End Date Pcp, No PCP - General 11/16/21 06/03/22 Team Status: Active Member Role Status Dates No Primary Care Physician Primary Care Provider Active Team Status: Inactive Member Role Status Dates No Primary Care Physician Primary Care Provider, Refer ring Provider Active Dr. Sheyla Small DO Attending Provider Activ e Team Status: Inactive Member Role Status Dates No Primary Care Physician Primary Care Provider, Refer ring Provider Active Micaela Peterson DEPUTY JUVENILE OFFICER, DEPUTY JUVENILE OFFICER-C Attending Provider Active Team Status: Inactive Member [...] Primary Care Provider Active Dr. Sheyla Small DO Attending Provider, Refe rring Provider Active Team Status: Inactive Member Role Status Dates No Primary Care Physician Primary Care Provider Active Dr. Sheyla Small DO Attending Provider, Refe rring Provider Active Dr. 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 Yuosuf Ortiz MD Primary Care Provider Active Start: [...] 2024 End: August 03, 2024 Micaela Peterson DEPUTY JUVENILE OFFICER, DEPUTY JUVENILE OFFICER-C Attending Provider Active Start: August 03, 2024 [...] End: August 03, 2024 Micaela Peterson NP, DEPUTY JUVENILE OFFICER-C Attending Provider Active Start: August 03, 2024 [...] November 11, 2024 End: November 11, 2024 Team Status: Active Member Role/Relationship Status Dates Dr. Yousuf Ortiz MD Primary Care Provider Active Start: November 11, 2024 Radha Valverde CNM Attending Provider Active S tart: November 11, 2024 Team Status: Active Member Role/Relationship Status Dates Dr. Yousuf Ortiz MD Primary Care Provider Active Start: November 14, 2024 Radha Valverde CNM Attending Provider Active S tart: November 14, 2024 Radha Valverde CNM Referring Provider Active S tart: November 14, 2024 Team Status: Inactive Member Role/Relationship Status Dates Dr. Yousuf Ortiz MD Primary Care Provider Active Start: November 16, 2024 End: November 16, 2024 Dr. Yousuf Ortiz MD Referring Provider Active Start: November 16, 2024 End: November 16, 2024 Dr. Linda Mcconnell MD Attending Provider Active Start: November 16, 2024 End: November 16, 2024 Team Status: Inactive Member Role/Relationship Status Dates Dr. Yousuf Ortiz MD Primary Care Provider Active Start: November 11, 2024 End: November 11, 2024 Radha Valverde CNM Attending Provider Active S tart: November 11, 2024 End: November 11, 2024 Team Status: Inactive Member Role/Relationship Status Dates Dr. Yousuf Ortiz MD Primary Care Provider Active Start: November 14, 2024 End: November 14, 2024 Radha Valverde CNM Attending Provider Active S tart: November 14, 2024 End: November 14, 2024 Radha Valverde CNM Referring Provider Active S tart: November 14, 2024 End: November 14, 2024 Team Status: Active Member Role/Relationship Status Dates Dr. Yousuf Ortiz MD Primary Care Provider Active Start: November 22, 2024 Dr. Linda Mcconnell MD Attending Provider Active Start: November 22, 2024 Dr. Linda Mcconnell MD Referring Provider Active Start: November 22, 2024 Team Status: Inactive Member Role/Relationship Status Dates Dr. Yousuf Ortiz MD Primary Care Provider Active Start: November 24, 2024 End: November 24, 2024 Dr. Yousuf Ortiz MD Referring Provider Active Start: November 24, 2024 End: November 24, 2024 Radha Valverde CNM Attending Provider Active S tart: November 24, 2024 End: November 24, 2024 Team Status: Inactive Member Role/Relationship Status Dates Dr. Yousuf Ortiz MD Primary Care Provider Active Start: November 22, 2024 End: November 22, 2024 Dr. Linda Mcconnell MD Attending Provider Active Start: November 22, 2024 End: November 22, 2024 Dr. Linda Mcconnell MD Referring Provider Active Start: November 22, 2024 End: November 22, 2024 Team Status: Inactive Member Role/Relationship Status Dates Dr. Yousuf Ortiz MD Primary Care Provider Active Start: December 01, 2024 End: December 01, 2024 Dr. Yousuf Ortiz MD Referring Provider Active Start: December 01, 2024 End: December 01, 2024 Radha Valverde CNM Attending Provider Active S tart: December 01, 2024 End: December 01, 2024 Goals (unrecognized section and content) Goals [...] or prosecute any alcohol or drug abuse patient.[facility] Hospital[facility] the event this information is protected by the Federal Confidentiality of Alcohol and Drug Abuse Patient Records regulations: The Federal rules restrict any use of the information to criminally investigate or prosecute any alcohol or drug abuse patient.[facility] Hospital[facility] the event this information is protected by the Federal Confidentiality of Alcohol and Drug Abuse Patient Records regulations: The Federal rules restrict any use of the information to criminally investigate or prosecute any alcohol or drug abuse patient.[facility] the event this information is protected by the Federal Confidentiality of Alcohol and Drug Abuse Patient Records regulations: The Federal rules restrict any use of the information to criminally investigate or prosecute any alcohol or drug abuse patient.[facility] FOR RECORDS PERTAINING TO PATIENTS WHO [...] BE BASED ON THE PRIMARY CLINICAL RECORDS. [facility] [employer] [facility]. provides no warranty or guarantee of the accuracy or completeness of information in this document.
--- OUTSIDE RECORDS SUMMARY | 2024-12-05 05:34 | XMS RPT_ITS | CCD ---
Author Organization [facility] Care Team Providers Care Enterprise Systems Engineer Name Role Phone Unavailable Primary Care Provider Sabiha Abdi MD Primary Care Provider [phone] NICOLEKATHY Attending Unavailable SABIHA COOPER Referring Unavailable SABIHA COOPER Primary Care Unavailable Dr. Sheyla Small Attending Provider [phone] Pcp, No Primary Care Provider UnavailDr. Linda Chaudhry Attending Provider [phone] Care Physician, No Primary Primary Care Provider Unavailable Care Physician, No Primary Referring Provider Un available Care Physician, No Primary Primary Care Provider Unavailable Care Physician, No Primary Referring Provider Un available Dr. Sheyla Small Attending Provider [phone] Kristen COOL, ISHAN Hinojosa Attending Provider [phone] LIMA Murray Attending Provider [phone] Dr. Linda Mcconnell Attending Provider [phone] LIMA Murray Admit Provider [phone] LIMA Murray Other Provider [phone] Jairo Romero MD Primary Care Provider JAIRO ROMERO Attending Unavailab KWABENA Grande Primary Care Unavailable JAIRO ROMERO Primary Care Unavailab JAIRO Maguire Referring Unavailab JAIRO Maguire Primary Care Unavailab JAIRO Maguire Primary Care Unavailab JAIRO Maguire Attending Unavailab JAIRO Maguire Primary Care Unavailab JAIRO Maguire Referring Unavailab KOBE Carlson Attending Unavailable SHEYAL MATHEW Referring Unavailab le ANGEL, YOUSUF G Primary Care Unavailable Angel MONAE, Dr. Hernandez Primary Care Provider [phone] Angel MONAE, Dr. Hernandez Referring Provider Trevor CNM, Trish Attending Provider [phone] Trevor CNM, Trish Referring Provider [phone] Dr. Sheyla Small DO Attending Provider Kristen [employer]ER-[employer], Micaela Attending Provider [phone] Jayesh MONAE, Dr. Mckeon Attending Provider [phone] Jayesh MONAE, Dr. Mckeon Referring Provider [phone] Abram AMATO, Radha Attending Provider [phone] Angel [...] Murray Referring Unavailable Angel, Yousuf Referring Unavailable Rienzi, Yousuf Primary Care Unavailable Sheyla Polk Attending Unavailabl e Radha Valverde Attending Unavailable Angel, Yousuf Referring Unavailable Rienzi, Yousuf Primary Care Unavailable Rienzi, Yousuf Primary Care Unavailable Trish Murray Attending Unavailable Rienzi, Yousuf Referring Unavailable Sheyla Polk Attending Unavailabl e Sheyla Polk Referring Unavailabl e Angel, Yousuf Primary Care Unavailable Radha Valverde Referring Unavailable Radha Valverde Attending Unavailable Rienzi, Yousuf Primary Care Unavailable Linda Mcconnell Attending Unavailable Linda Mcconnell Referring Unavailable Angel, Yousuf Primary Care Unavailable Rienzi, Yousuf Primary Care Unavailable Angel, Yousuf Attending Unavailable Rienzi, Yousuf Referring Unavailable Angel, Yousuf Primary Care Unavailable Rienzi, Yousuf Attending Unavailable Rienzi, Yousuf Referring Unavailable Radha Valverde Attending Unavailable Radha Valverde Referring Unavailable Rienzi, Yousuf Primary Care Unavailable Radha Valverde Attending Unavailable Rienzi, Yousuf Primary Care Unavailable Angel, Yousuf Attending Unavailable Care Physician, No Primary Primary Care Unava ilable Care Physician, No Primary Referring Unava ilable Radha Valverde Attending Unavailable Rienzi, Yousuf Referring Unavailable Angel, Yousuf Primary Care Unavailable Linda Mcconnell Attending Unavailable Rienzi, Yousuf Referring Unavailable Angel, Yousuf Primary Care Unavailable Micaela Peterson Attending Unavailable Angel, Yousuf Referring Unavailable Angel, Yousuf Primary Care Unavailable Sheyla Polk Attending Unavailabl e Angel, Yousuf Referring Unavailable Angel, Yousuf Primary Care Unavailable Linda Mcconnell Attending Unavailable Rienzi, Yousuf Primary Care Unavailable Angel, Yousuf Referring Unavailable Rienzi, Yousuf Referring Unavailable Rienzi, Yousuf Primary Care Unavailable Sheyla Polk Attending UnavailRadha Martinez Attending Unavailable Rienzi, Yousuf Referring Unavailable Rienzi, Yousuf Primary Care Unavailable Rienzi, Yousuf Referring Unavailable Rienzi, Yousuf Primary Care Unavailable Sheyla Polk Attending UnavailRadha Martinez Attending Unavailable Rienzi, Yousuf Referring Unavailable Angel, Yousuf Primary Care Unavailable Linda Mcconnell Attending Unavailable Linda Mcconnell Referring Unavailable Rienzi, Yousuf Primary Care Unavailable Medications Current Medications [...] 30 g 1 12/24/2020 01/23/2021 Active Multivit 97-Yykj-Vucxzk 1-Dha (Pnv-Dha) 27 mg iron-1 mg -300 mg capsule (11 sources) Start: 05-20-2024 Multivit 05-Zyvw-Lislrk 1-Dha (Pnv-Dha) 27 mg iron-1 mg -300 [...] also has di lated stomach. report from [facility] pendingtoxo and cmv ordered NIPT [...] trimester] Onset: 07-05-2024 Episodic Comment on above: ZOUR0A3, JAZMIN 12/08/24, surprise CHRISTINA Lopez, Kevin, Terrance [...] complications: 2 vessel cordI have reviewed the [facility] and made any clinically relevant updates.Dr. Mcconnell updated on POC, admission and exam. co-management for 2 vessel cord Unclassified (7 sources) bowel echogenicity on obstetric ultrasound scan; Translations: [Echogenic bowel of fetus] 05-24-2022 Results Test Name Value Interpretation Reference Range Facility OB Biophysical Prof W/O NSTo n 12-01-2024 OB Biophysical Prof W/O NST [facility] [address] [place] [id number] OB Biophysical Prof W/O NST MR#: [id number] Acct: [id number] Name: BRIGID BELLA Rep #: [id number] : 1985 F 39 From: Santo acosta MD PCP: Dr. Yousuf Ortiz MD Status: REG CLI Study: OB Biophysical Prof W/O NST Date of Exam: 11/03 05/28 Exam# [id number] Ordering Dr: Radha Valverde CNM PROCEDURE: OB [...] NST IMPRESSION: Normal biophysical profile. Reading Location: [id number] CC: LIMA Valverde; Dr. Yousuf Ortiz MD Warehouseman: Signed Normal [facility] Paint Tester Office Visit Reporton 12-01-2024 Paint Tester Office Visit Report [facility] [address], [address] [place] [address] OFFICE VISIT Date of Service: 12/01/24 MR#: [id number] Acct: [id number] Name: BRIGID BELLA Rep #: [id number] : 1985 Provider: LIMA Gusman ams Age/Sex: 39/F Location: [facility] [place] Status: Signed Intake Vital Signs 10/28/24 13:55 11/24/24 15:55 12/01/24 15:13 Height 5 ft 5 in 5 ft 5 in 5 ft 5 in Weight: 164 lb 8 oz BMI 27.3 BP 108/69 Intake Visit Reasons: 39 wk ob Chief Complaint: 39wk OB Channel Account Manager Required: No Is patient in pain?: No [...] umbilical cord Supervision of normal Surgical History Salcha teeth extracted No pertinent past surgical history [...] current occupational status: employed 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 Date Name GA/Weeks Outcome Route Bth Weight Gen Labor Lgth Anesthesia Del Locatn Provider FOB Unknown 01/08/20 John 40 live - full term 7# 10oz Male 12 hour s none [place] Dr. Ibeth Carlos 06/17/22 Kevin 40 live - full term 8lbs 1oz Male none [facility] Danuta Carlos Delivery Date: 06/17/22 Last Updated [...] 06/03/24 -???-???-???-???-? (more content not included)... Normal [facility] Laboratory - Chemistry and C hemistry - challengeOrdered By: Radha Valverde on 11-24-2024 Glucose Ql (U) Negative [facility] Laboratory - UrinalysisOrder ed By: Radha Valverde on 11-24-2024 Protein Ql (U) Negative [facility] Paint Tester Office Visit Reporton 11-24-2024 Paint Tester Office Visit Report [facility] [address], [address] [place] [address] OFFICE VISIT Date of Service: 11/24/24 MR#: [id number] Acct: [id number] Name: BRIGID BELLA Rep #: [id number] : 1985 Provider: LIMA Gusman ams Age/Sex: 39/F Location: [facility] [place] Status: Signed Intake Vital Signs 10/28/24 13:55 11/16/24 13:49 11/24/24 15:55 Height 5 ft 5 in 5 ft 5 in 5 ft 5 in Weight: 167 lb 165 lb 8 oz BMI 27.8 27.5 BP 113/73 123/84 H Intake Visit Reasons: 38 wk ob Chief Complaint: 38wk OB Channel Account Manager Required: No Is patient in pain?: No [...] umbilical cord Supervision of normal Surgical History Salcha teeth extracted No pertinent past surgical history [...] current occupational status: employed 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 Date Name GA/Weeks Outcome Route Bth Weight Gen Labor Lgth Anesthesia Del Locatn Provider FOB Unknown 01/08/20 [place] 40 live - full term 7# 10oz Male 12 hour s none [place], [place] Dr. Ibeth Carlos 06/17/22 [place] 40 live - full term 8lbs 1oz Male none [facility] roger Murray [facility] Terrance Delivery Date: 06/17/22 Last Updated by: [...] Note 06/03/24 (more content not included)... Normal [facility] OB Limited (No Biometrics)on 11-22-2024 OB Limited (No Biometrics) [facility] [address] [place], [place] [address] OB Limited (No Biometrics) MR#: [id number] Acct: [id number] Name: BRIGID BELLA Rep #: [id number] : 1985 F 39 From: Kim Iqbal MD PCP: Dr. Yousuf Ortiz MD Status: REG CLI Study: OB Limited (No Biometrics) Date of Exam: 11/22 Exam# [id number] Ordering Dr: Linda Mcconnell PROCEDURE: OB LIMITED [...] fluid index of 9.7 cm. Reading Location: [id number] CC: Dr. Yousuf Ortiz MD; Dr. Linda Mcconnell MD Warehouseman: Signed Normal [facility] Laboratory - Chemistry and C hemistry - challengeOrdered By: Linda Mcconnell on 11-16-2024 Glucose Ql (U) Negative [facility] Laboratory - UrinalysisOrder ed By: Linda Mcconnell on 11-16-2024 Protein Ql (U) Negative [facility] Paint Tester Office Visit Reporton 11-16-2024 Paint Tester Office Visit Report [facility] [address], [address] [place] [address] OFFICE VISIT Date of Service: 11/16/24 MR#: [id number] Acct: [id number] Name: BRIGID BELLA Rep #: [id number] : 1985 Provider: Dr. 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 Date Name GA/Weeks Outcome Route Bth Weight Gen Labor Lgth Anesthesia Del Locatn Provider FOB Unknown 01/08/20 [place] 40 live - full term 7# 10oz Male 12 hour s none [place], [place] Dr. Ibeth Carlos 06/17/22 [place] 40 live - full term 8lbs 1oz Male none [facility] roger Murray CN Terrance Delivery Date: [...] -???-???-???-???-???-? ??-???-???-???-???-??? (more content not included)... Normal [facility] OB Limited (No Biometrics)on 11-14-2024 OB Limited (No Biometrics) [facility] [address] [place] [address] OB Limited (No Biometrics) MR#: [id number] Acct: [id number] Name: BRIGID BELLA Rep #: [id number] : 1985 F 39 From: Santo acosta MD PCP: Dr. Yousuf Ortiz MD Status: REG CLI Study: OB Limited (No Biometrics) Date of Exam: 11/14 Exam# [id number] Ordering Dr: Radha Valverde CNM PROCEDURE: OB [...] is lower limits of normal. Reading Location: [id number] CC: LIMA Valverde; Dr. Yousuf Ortiz MD Warehouseman: Signed Normal [facility] Rule out Beta Strep (Grp. B) on 11-14-2024 BECKA Group B Beta Streptococcus is not isolated. Normal [facility] Comment on above: Performed By: #### M 100.3402 ####[facility] [id number] [facility] [place], [place], [address] Laboratory - Chemistry and C hemistry - challengeOrdered By: Radha Valverde on 11-11-2024 Glucose Ql (U) Negative [facility] Laboratory - UrinalysisOrder ed By: Radha Valverde on 11-11-2024 Protein Ql (U) Negative [facility] Paint Tester Office Visit Reporton 11-11-2024 Paint Tester Office Visit Report [facility] [address], [address] [place] [address] OFFICE VISIT Date of Service: 11/11/24 MR#: [id number] Acct: [id number] Name: BRIGID BELLA CHRISTIANA Rep #: [id number] : 1985 Provider: LIMA Gusman ams Age/Sex: 39/F Location: [facility] [place] [facility] Status: Signed Intake Vital Signs 09/29/24 15:15 10/28/24 13:55 11/11/24 15:41 Height 5 ft 5 in 5 ft 5 in 5 ft 5 in Weight: 165 lb 2 oz BMI 27.4 BP 120/78 Intake Visit Reasons: 36 wk ob Channel Account Manager Required: No Is patient in pain?: No [...] umbilical cord Supervision of normal Surgical History Salcha teeth extracted No pertinent past surgical history [...] current occupational status: employed 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 Date Name GA/Weeks Outcome Route Bth Weight Infant Gen Labor Lgth Anesthesia Del Locatn Provider FOB Unknown 01/08/20 [place] 40 live - full term 7# 10oz Male 12 hour s none [place] Dr. Ibeth Carlos 06/17/22 [place] 40 live - full term 8lbs 1oz Male none [facility] roger Murray [facility] Terrance Delivery Date: 06/17/22 Last Updated by: Diandra Truong see problem list for complications HPI 36 wk ob Details: BRIGID BELLA is a [...] -???-???-???-???-???-? ??-???-???-???- (more content not included)... Normal [facility] Screening beta-hemolytic Str eptococcus cultureOrdered By: Radha Valverde on 11-11-2024 Beta-hemolytic Streptococcus culture Group B Beta Streptococcus is not isolated. [facility] OB Limited With Biometricson 11-02-2024 OB Limited With Biometrics [facility] [address] [place], [place] [address] OB Limited With Biometrics MR#: [id number] Acct: [id number] Name: BRIGID BELLA Rep #: [id number] : 1985 F 39 From: Dimitri Hanson DO PCP: Dr. Yousuf Ortiz MD Status: REG CLI Study: OB Limited With Biometrics Date of Exam: 11/02 Exam# [id number] Ordering Dr: Sheyla Small DO PROCEDURE: OB [...] due date December 19, 2024 Reading [facility] CC: Dr. Yousuf Ortiz MD; Dr. Sheyla Small DO Warehouseman: Signed Normal [facility] Laboratory - Chemistry and C hemistry - challengeOrdered By: Sheyla Polk on 10-28-2024 Glucose Ql (U) Negative [facility] Laboratory - UrinalysisOrder ed By: Sheyla Polk on 10-28-2024 Protein Ql (U) Negative [facility] Paint Tester Office Visit Reporton 10-28-2024 Paint Tester Office Visit Report [facility] [address], [address] [place] [address] OFFICE VISIT Date of Service: 10/28/24 MR#: [id number] Acct: [id number] Name: BRIGID BELLA Rep #: [id number] : 1985 Provider: Dr. 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 Date Name GA/Weeks Outcome Route Bth Weight Gen Labor Lgth Anesthesia Del Locatn Provider FOB Unknown 01/08/20 [place] 40 live - full term 7# 10oz Male 12 hour s none [place] Dr. Ibeth Carlos 06/17/22 [place] 40 live - full term 8lbs 1oz Male none [facility] Danuta Carlos Delivery Date: 06/17/22 Last Updated [...] St Vi (more content not included)... Normal [facility] Laboratory - Chemistry and C hemistry - challengeOrdered By: Sheyla Polk on 10-12-2024 Glucose Ql (U) Negative [facility] Laboratory - UrinalysisOrder ed By: Sheyla Polk on 10-12-2024 Protein Ql (U) Negative [facility] Paint Tester Office Visit Reporton 10-12-2024 Paint Tester Office Visit Report [facility] [address], [address] [place] [address] OFFICE VISIT Date of Service: 10/12/24 MR#: [id number] Acct: [id number] Name: BRIGID BELLA Rep #: [id number] : 1985 Provider: Dr. 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 Date Name GA/Weeks Outcome Route Bth Weight Gen Labor Lgth Anesthesia Del Locatn Provider FOB Unknown 01/08/20 [place] 40 live - full term 7# 10oz Male 12 hour s none [place] Dr. Ibeth Carlos 06/17/22 [place] 40 live - full term 8lbs 1oz Male none [facility] Terrance Delivery Date: 06/17/22 Last Updated by: [...] St Visi (more content not included)... Normal [facility] Laboratory - Chemistry and C hemistry - challengeOrdered By: Radha Valverde on 09-29-2024 Glucose Ql (U) Negative [facility] Laboratory - UrinalysisOrder ed By: Radha Valverde on 09-29-2024 Protein Ql (U) Negative [facility] Paint Tester Office Visit Reporton 09-29-2024 Paint Tester Office Visit Report [facility] [address], [address] [place] [address] OFFICE VISIT Date of Service: 09/29/24 MR#: [id number] Acct: [id number] Name: BRIGID BELLA Rep #: [id number] : 1985 Provider: LIMA Gusman ams Age/Sex: 39/F Location: [facility] [place] [facility] Status: Signed Intake Vital Signs 08/03/24 08:30 08/03/24 08:46 08/31/24 09:09 09/29/24 15:15 Height 5 ft 5 in 5 ft 5 in 5 ft 5 in 5 ft 5 in Weight: 164 lb 2 oz BMI 27.3 BP 107/74 Intake Visit Reasons: 30wk ob Chief Complaint: 30wk OB Channel Account Manager Required: No Is patient in pain?: No [...] umbilical cord Supervision of normal Surgical History Salcha teeth extracted No pertinent past surgical history [...] current occupational status: employed 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 Date Name GA/Weeks Outcome Route Bth Weight Gen Labor Lgth Anesthesia Del Locatn Provider FOB Unknown 01/08/20 [place] 40 live - full term 7# 10oz Male 12 hour s none [place] Dr. Ibeth Carlos 06/17/22 Kevin 40 live - full term 8lbs 1oz Male none [facility] roger Murray CNM Terrance Delivery Date: [...] ??-???-???-???-???-??? -??? (more content not included)... Normal [facility] Absolute lymphocyte countOrd ered By: Micaela Peterson on 08-31-2024 Lymphocytes Auto (Unsp spec) [#/Vol] 2.06 10*3/uL 0.83-4.51 [facility] Absolute neutrophil countOrd ered By: Micaela Peterson on 08-31-2024 Neutrophils (Bld) [#/Vol] 7.9 10*3/uL High 2.0-7.7 [facility] Automated lymphocyte count a s percentage of total leukocytesOrdered By: Micaela Peterson on 08-31-2024 Lymphocytes/100 WBC Auto (Unsp spec) 18.9 % Low 19-41 [facility] Basophil percentageOrdered B y: Micaela Peterson on 08-31-2024 Basophils/100 WBC (Bld) 0.4 % 0-1 [facility] CBC W/Diff, Automatedon 08-04-2024 Absolute Lymph 2.06 X10 3/uL Normal 0.83-4.51 [facility] Comment on above: Performed By: #### L 100.0100, L509.8002, L501.0250, L3890.6006 ####[facility] [address] [place], [address] Absolute Neut 7.9 X10 3/uL High 2.0-7.7 [facility] Comment on above: Performed By: #### L 100.0100, L509.8002, L501.0250, L3890.6006 ####[facility] [address] [place], [address] Basophils/100 WBC (Bld) 0.4 % Normal 0-1 [facility] Comment on above: Performed By: #### L 100.0100, L509.8002, L501.0250, L3890.6006 ####[facility] [address] [place], [address] Eosinophils/100 WBC (Bld) 1.0 % Normal 0-5 [facility] Comment on above: Performed By: #### L 100.0100, L509.8002, L501.0250, L3890.6006 ####[facility] [address] [place], [address] Erythrocyte distribution width (RBC) [Ratio] 12.5 % Normal 11.6-14.6 [facility] Comment on above: Performed By: #### L 100.0100, L509.8002, L501.0250, L3890.6006 ####[facility] [address] [place], [address] Hematocrit (Bld) [Volume fraction] 35.2 % Low 37-47 [facility] Comment on above: Performed By: #### L 100.0100, L509.8002, L501.0250, L3890.6006 ####[facility] [address] [place], [address] Hemoglobin (Bld) [Mass/Vol] 11.5 g/dL Low 12.0-15.0 [facility] Comment on above: Performed By: #### L 100.0100, L509.8002, L501.0250, L3890.6006 ####[facility] [address] [place], [address] IG% 0.600 Normal 0.0-0.9 [facility] Comment on above: Result Comment: IG% - Immature Granulocytes (promyelocytes, myelocytes and metamyelocytes) > 1% indicates that a LEFT SHIFT is Present. Performed By: #### L 100.0100, L509.8002, L501.0250, L3890.6006 ####[facility] [address] [place], [address] Lymphocytes/100 WBC (Bld) 18.9 % Low 19-41 [facility] Comment on above: Performed By: #### L 100.0100, L509.8002, L501.0250, L3890.6006 ####[facility] [address] [place], [address] MCH (RBC) [Entitic mass] 30.3 pg Normal 27.0-32.0 [facility] Comment on above: Performed By: #### L 100.0100, L509.8002, L501.0250, L3890.6006 ####[facility] [address] [place], [address] MCHC (RBC) [Mass/Vol] 32.7 g/dL Normal 32-36 [facility] Comment on above: Performed By: #### L 100.0100, L509.8002, L501.0250, L3890.6006 ####[facility] [address] [place], [address] MCV (RBC) [Entitic vol] 92.9 fL Normal 81-99 [facility] Comment on above: Performed By: #### L 100.0100, L509.8002, L501.0250, L3890.6006 ####[facility] [address] [place], [address] Monocytes/100 WBC (Bld) 6.7 % Normal 0-10 [facility] Comment on above: Performed By: #### L 100.0100, L509.8002, L501.0250, L3890.6006 ####[facility] [address] [place], [address] Neutrophils/100 WBC (Bld) 72.4 % High 47-70 [facility] Comment on above: Performed By: #### L 100.0100, L509.8002, L501.0250, L3890.6006 ####[facility] [address] [place], [address] Nucleated RBC (Bld) [#/Vol] 0 10*3/uL Normal 0-5 [facility] Comment on above: Performed By: #### L 100.0100, L509.8002, L501.0250, L3890.6006 ####[facility] [address] [place], [address] Platelet mean volume (Bld) [Entitic vol] 12.0 fL Normal 6.2-12.0 [facility] Comment on above: Performed By: #### L 100.0100, L509.8002, L501.0250, L3890.6006 ####[facility] [address] [place], [address] Platelets (Bld) [#/Vol] 260 10*3/uL Normal 150-450 [facility] Comment on above: Performed By: #### L 100.0100, L509.8002, L501.0250, L3890.6006 ####[facility] [address] [place], [address] RBC (Bld) [#/Vol] 3.79 10*6/uL Low 4.2-5.4 [facility] Comment on above: Performed By: #### L 100.0100, L509.8002, L501.0250, L3890.6006 ####[facility] [address] [place], [address] RDW SD 42.7 fl Normal 35.1-43.9 [facility] Comment on above: Performed By: #### L 100.0100, L509.8002, L501.0250, L3890.6006 ####[facility] [address] [place], [address] WBC (Bld) [#/Vol] 10.9 10*3/uL Normal 4.4-11.0 [facility] Comment on above: Performed By: #### L 100.0100, L509.8002, L501.0250, L3890.6006 ####[facility] [address] [place], [place], [id number] Eosinophil percentageOrdered By: Micaela Peterson on 08-31-2024 Eosinophils/100 WBC (Bld) 1.0 % 0-5 [facility] Erythrocyte distribution wid th ratioOrdered By: Micaela Kristen on 08-31-2024 Erythrocyte distribution width (RBC) [Ratio] 12.5 % 11.6-14.6 [facility] Erythrocyte distribution wid th standard deviationOrdered By: Micaela Kristen on 08-31-2024 Erythrocyte distribution width (RBC) [Ratio] 42.7 fl 35.1-43.9 [facility] Glucose Challenge Gest 1H 50 irma 08-31-2024 GLU GEST 50g 1H 84 mg/dL Normal 70-140 [facility] Comment on above: Performed By: #### L 100.0100, L509.8002, L501.0250, L3890.6006 ####[facility] [address] [place], [place], [address] Glucose measurement at 2 dillon rs post-dose gestational glucose tolerance testOrdered By: Micaela Peterson on 08-31-2024 Glucose [Mass/Vol] 84 mg/dL 70-140 [facility] HIVon 08-31-2024 HIV Non-Reactive Normal Nonreactive [facility] Comment on above: Result Comment: Non- Reactive Reactive Repeatedly reactive samples must be confirmed according to CDC recommended confirmatory algorithms. The subresults for either HIVAG or AHIV can be used as an aid in the selection of the confirmation algorithm for reactive samples. Send out specimens with Reactive results to [facility] for confirmation. Order the HIV antibody detection and differentiation: lc#[id number] Performed By: #### L 100.0100, L509.8002, L501.0250, L3890.6006 ####[facility] [address] [place], [address] Hematocrit Auto (Bld) [Volum e fraction]Ordered By: Micaela Peterson on 08-31-2024 Hematocrit (Bld) [Volume fraction] 35.2 % Low 37-47 [facility] Hemoglobin measurementOrdere d By: Micaela Peterson on 08-31-2024 Hemoglobin (Bld) [Mass/Vol] 11.5 g/dL Low 12.0-15.0 [facility] Immature granulocytes/100 WB C Auto (Bld)Ordered By: Micaela Peterson on 08-31-2024 Immature granulocytes/100 WBC (Bld) 0.600 % 0.0-0.9 [facility] Comment on above: IG% - Immature Granu locytes (promyelocytes, myelocytes and metamyelocytes) > 1% indicates that a LEFT SHIFT is Present. Laboratory - Chemistry and C hemistry - challengeOrdered By: Linda Mcconnell on 08-31-2024 Glucose Ql (U) Negative [facility] Laboratory - UrinalysisOrder ed By: Linda Mcconnell on 08-31-2024 Protein Ql (U) Negative [facility] MCV (mean corpuscular volume ) determinationOrdered By: Micaela Peterson on 08-31-2024 MCV (RBC) [Entitic vol] 92.9 fL 81-99 [facility] Mean corpuscular hemoglobin (MCH) determinationOrdered By: Micaela Peterson on 08-31-2024 MCH (RBC) [Entitic mass] 30.3 pg 27.0-32.0 [facility] Mean corpuscular hemoglobin concentration (MCHC) determinationOrdered By: Micaela Peterson on 08-31-2024 MCHC (RBC) [Mass/Vol] 32.7 g/dL 32-36 [facility] Mean platelet volume determi nationOrdered By: Micaela Peterson on 08-31-2024 Platelet mean volume (Bld) [Entitic vol] 12.0 fL 6.2-12.0 [facility] Monocyte percentageOrdered B y: Micaela Peterson on 08-31-2024 Monocytes/100 WBC (Bld) 6.7 % 0-10 [facility] Neutrophil percentageOrdered By: Micaela Peterson on 08-31-2024 Neutrophils/100 WBC (Bld) 72.4 % High 47-70 [facility] No Panel InformationOrdered By: Micaela Peterson on 08-31-2024 HIV (1&2) Antibody Non-Reactive Nonreactive [facility] Comment on above: Non-ReactiveReactive Repeatedly reactive samples must be confirmed according to CDC recommended confirmatory algorithms. The subresults for either HIVAG or AHIV can be used as an aid in the selection of the confirmation algorithm for reactive samples.Send out specimens with Reactive results to [facility] for confirmation.Order the HIV antibody detection and differentiation: #[id number] Nucleated red blood cell per centageOrdered By: Micaela Peterson on 08-31-2024 Nucleated RBC/100 WBC (Bld) [Ratio] 0 % 0-5 [facility] Paint Tester Office Visit Reporton 08-31-2024 Paint Tester Office Visit Report [facility] [address], [address] [place] [address] OFFICE VISIT Date of Service: 08/31/24 MR#: [id number] Acct: [id number] Name: BRIGID BELLA Rep #: [id number] : 1985 Provider: Dr. 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 Date Name GA/Weeks Outcome Route Bth Weight Infant Gen Labor Lgth Anesthesia Del Locatn Provider FOB Unknown 01/08/20 [place] 40 live - full term 7# 10oz Male 12 hour s none [place], [place] Dr. Ibeth Carlos 06/17/22 Kevin 40 live - full term 8lbs 1oz Male none [facility] Danuta LEE Terrance Delivery Date: 06/17/22 Last [...] -???-???-???-???-???-? ??-???-?? (more content not included)... Normal [facility] Platelet countOrdered By: Cas Peterson on 08-31-2024 Platelets (Bld) [#/Vol] 260 10*3/uL 150-450 [facility] RBC Auto (Bld) [#/Vol]Ordere d By: Micaela Peterson on 08-31-2024 RBC (Bld) [#/Vol] 3.79 10*6/uL Low 4.2-5.4 [facility] Syphilis Antibodieson 2024 Syphilis Abs Non-Reactive Normal Nonreactive [facility] Comment on above: Performed By: #### L 100.0100, L509.8002, L501.0250, L3890.6006 ####[facility] [address] [place], [address] White blood cell (WBC) count Ordered By: Micaela Peterson on 08-31-2024 WBC (Bld) [#/Vol] 10.9 10*3/uL 4.4-11.0 [facility] Laboratory - Chemistry and C hemistry - challengeOrdered By: Micaela Peterson on 08-03-2024 Glucose Ql (U) Negative [facility] Laboratory - UrinalysisOrder ed By: Micaela Peterson on 08-03-2024 Protein Ql (U) Negative [facility] Paint Tester Office Visit Reporton 08-03-2024 Paint Tester Office Visit Report [facility] [address], [address] [place] [address] OFFICE VISIT Date of Service: 08/03/24 MR#: [id number] Acct: [id number] Name: BRIGID BELLA Rep #: [id number] : 1985 Provider: ISHAN mcdonald Age/Sex: 39/F Location: [facility] [place] Status: Signed Intake Vital Signs 06/03/24 11:26 07/05/24 15:41 08/03/24 08:30 Height 5 ft 5 in 5 ft 5 in 5 ft 5 in Weight: 152 lb BMI 25.2 BP 102/64 Intake Visit Reasons: 21 wk ob Chief Complaint: 21 Week OB Channel Account Manager Required: No Is patient in pain?: No [...] umbilical cord Supervision of normal Surgical History [place] teeth extracted No pertinent past surgical history [...] current occupational status: employed 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 Date Name GA/Weeks Outcome Route Bth Weight Infant Gen Labor Lgth Anesthesia Del Locatn Provider FOB Unknown 01/08/20 John 40 live - full term 7# 10oz Male 12 hour s none [place] Dr. Ibeth Carlos 06/17/22 Kevin 40 live - full term 8lbs 1oz Male none [facility] Terrance Delivery Date: 06/17/22 Last Updated by: [...] Note 0 (more content not included)... Normal [facility] Laboratory - Chemistry and C hemistry - challengeOrdered By: Sheyla Polk on 07-05-2024 Glucose Ql (U) Negative [facility] Laboratory - UrinalysisOrder ed By: Sheyla Polk on 07-05-2024 Protein Ql (U) Negative [facility] Paint Tester Office Visit Reporton 07-05-2024 Paint Tester Office Visit Report [facility] [address] [place] [address], [address] [place] [address] OFFICE VISIT Date of Service: 07/05/24 MR#: [id number] Acct: [id number] Name: BRIGID BELLA Rep #: [id number] : 1985 Provider: Dr. 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 Date Name GA/Weeks Outcome Route Bth Weight Gen Labor Lgth Anesthesia Del Locatn Provider FOB Unknown 01/08/20 [place] 40 live - full term 7# 10oz Male 12 hour s none [place] Dr. Ibeth Carlos 06/17/22 [place] 40 live - full term 8lbs 1oz Male [facility]: 06/17/22 Last Updated by: [...] Visit Note (more content not included)... Normal [facility] Chlamydia/GC SINA aptimaon CHLAMY,NUC ACID Negative Normal Negative [facility] Comment on above: Performed By: #### M 100.2200, L7000.1800 #### [facility] [address] [place], [place], [address] GC BY NUC ACID Negative Normal Negative [facility] Comment on above: Result Comment: Perf ormed at: =G - [facility] [address] [id number] Proof Sorter: Maya Barrett MD, Phone: [phone] Performed By: #### M 100.2200, L7000.1800 #### [facility] [address] [place], [address] HIV - WCHon 06-04-2024 HIV Non-Reactive Normal Nonreactive [facility] Comment on above: Order Comment: Reaso n for Exam: Performed By: #### L 3890.6005, L509.8000, BTS, L3890.6100, L3890.6300, L100.0100, L509.4005, L900.0098 ####[facility] [address] [place], [place], [address] Hepatitis B Surface Antigeno n 06-04-2024 HEP B Surf Ag Non-Reactive Normal Nonreactive [facility] Comment on above: Order Comment: Reaso n for Exam: Performed By: #### L 3890.6005, L509.8000, BTS, L3890.6100, L3890.6300, L100.0100, L509.4005, L900.0098 ####[facility] [address] [place], [address] Hepatitis C Antibodyon 06-04 Hepatitis C AB Non-Reactive Normal Nonreactive [facility] Comment on above: Order Comment: Reaso n for Exam: Result Comment: Non Reactive: < 0.8 Equivocal: >/= 0.8 to < 1.0 Reactive: >/= 1.0 [facility] requires that a reactive/equivocal HCV antibody result be sent out for confirmation. HCV Quant by PCR testing. Performed By: #### L 3890.6005, L509.8000, BTS, L3890.6100, L3890.6300, L100.0100, L509.4005, L900.0098 ####[facility] [address] [facility] [place], [address] L509.8000on 06-04-2024 Syphilis Abs Non-Reactive Normal [facility] Comment on above: Order Comment: Reaso n for Exam: Performed By: #### L 3890.6005, L509.8000, BTS, L3890.6100, L3890.6300, L100.0100, L509.4005, L900.0098 ####[facility] [address] [facility] [place], [address] Rubella IgGon 06-04-2024 Rubella IgG Reactive Normal Nonreactive [facility] Comment on above: Order Comment: Reaso n for Exam: Result Comment: Anti body Results Interpretation of Immune Status Non Reactive Presumed Non-Immune Equivocal Equivocal Reactive Presumed Immune Performed By: #### L 3890.6005, L509.8000, BTS, L3890.6100, L3890.6300, L100.0100, L509.4005, L900.0098 ####[facility] [address] [place], [address] Urine Cultureon 06-04-2024 URC Culture exhibits no growth. Normal [facility] Comment on above: Performed By: #### M 100.2200, L7000.1800 #### [facility] [address] [place], [address] Absolute lymphocyte countOrd ered By: Trish Murray on 06-03-2024 Lymphocytes Auto (Unsp spec) [#/Vol] 2.33 10*3/uL 0.83-4.51 [facility] Absolute neutrophil countOrd ered By: Trish Murray on 06-03-2024 Neutrophils (Bld) [#/Vol] 8.5 10*3/uL High 2.0-7.7 [facility] Automated lymphocyte count a s percentage of total leukocytesOrdered By: Trish Murray on 06-03-2024 Lymphocytes/100 WBC Auto (Unsp spec) 20.1 % 19-41 [facility] Basophil percentageOrdered B y: Trish Murray on 06-03-2024 Basophils/100 WBC (Bld) 0.3 % 0-1 [facility] CBC W/Diff, Automatedon 05-06 Absolute Lymph 2.33 X10 3/uL Normal 0.83-4.51 [facility] Comment on above: Performed By: #### L 3890.6005, L509.8000, BTS, L3890.6100, L3890.6300, L100.0100, L509.4005, L900.0098 ####[facility] [address] [place], [address] Absolute Neut 8.5 X10 3/uL High 2.0-7.7 [facility] Comment on above: Performed By: #### L 3890.6005, L509.8000, BTS, L3890.6100, L3890.6300, L100.0100, L509.4005, L900.0098 ####[facility] [address] [place], [address] Basophils/100 WBC (Bld) 0.3 % Normal 0-1 [facility] Comment on above: Performed By: #### L 3890.6005, L509.8000, BTS, L3890.6100, L3890.6300, L100.0100, L509.4005, L900.0098 ####[facility] [address] [place], [address] Eosinophils/100 WBC (Bld) 0.6 % Normal 0-5 [facility] Comment on above: Performed By: #### L 3890.6005, L509.8000, BTS, L3890.6100, L3890.6300, L100.0100, L509.4005, L900.0098 ####[facility] [address] [place], [address] Erythrocyte distribution width (RBC) [Ratio] 13.3 % Normal 11.6-14.6 [facility] Comment on above: Performed By: #### L 3890.6005, L509.8000, BTS, L3890.6100, L3890.6300, L100.0100, L509.4005, L900.0098 ####[facility] [address] [place], [address] Hematocrit (Bld) [Volume fraction] 36.7 % Low 37-47 [facility] Comment on above: Performed By: #### L 3890.6005, L509.8000, BTS, L3890.6100, L3890.6300, L100.0100, L509.4005, L900.0098 ####[facility] [address] [place], [address] Hemoglobin (Bld) [Mass/Vol] 12.1 g/dL Normal 12.0-15.0 [facility] Comment on above: Performed By: #### L 3890.6005, L509.8000, BTS, L3890.6100, L3890.6300, L100.0100, L509.4005, L900.0098 ####[facility] [address] [place], [address] IG% 0.300 Normal 0.0-0.9 [facility] Comment on above: Result Comment: IG% - Immature Granulocytes (promyelocytes, myelocytes and metamyelocytes) > 1% indicates that a LEFT SHIFT is Present. Performed By: #### L 3890.6005, L509.8000, BTS, L3890.6100, L3890.6300, L100.0100, L509.4005, L900.0098 ####[facility] [address] [place], [address] Lymphocytes/100 WBC (Bld) 20.1 % Normal 19-41 [facility] Comment on above: Performed By: #### L 3890.6005, L509.8000, BTS, L3890.6100, L3890.6300, L100.0100, L509.4005, L900.0098 ####[facility] [address] [place], [address] MCH (RBC) [Entitic mass] 29.4 pg Normal 27.0-32.0 [facility] Comment on above: Performed By: #### L 3890.6005, L509.8000, BTS, L3890.6100, L3890.6300, L100.0100, L509.4005, L900.0098 ####[facility] [address] [place], [address] MCHC (RBC) [Mass/Vol] 33.0 g/dL Normal 32-36 [facility] Comment on above: Performed By: #### L 3890.6005, L509.8000, BTS, L3890.6100, L3890.6300, L100.0100, L509.4005, L900.0098 ####[facility] [address] [place], [address] MCV (RBC) [Entitic vol] 89.1 fL Normal 81-99 [facility] Comment on above: Performed By: #### L 3890.6005, L509.8000, BTS, L3890.6100, L3890.6300, L100.0100, L509.4005, L900.0098 ####[facility] [address] [place], [address] Monocytes/100 WBC (Bld) 5.5 % Normal 0-10 [facility] Comment on above: Performed By: #### L 3890.6005, L509.8000, BTS, L3890.6100, L3890.6300, L100.0100, L509.4005, L900.0098 ####[facility] [address] [place], [address] Neutrophils/100 WBC (Bld) 73.2 % High 47-70 [facility] Comment on above: Performed By: #### L 3890.6005, L509.8000, BTS, L3890.6100, L3890.6300, L100.0100, L509.4005, L900.0098 ####[facility] [address] [place], [address] Nucleated RBC (Bld) [#/Vol] 0 10*3/uL Normal 0-5 [facility] Comment on above: Performed By: #### L 3890.6005, L509.8000, BTS, L3890.6100, L3890.6300, L100.0100, L509.4005, L900.0098 ####[facility] [address] [place], [address] Platelet mean volume (Bld) [Entitic vol] 11.1 fL Normal 6.2-12.0 [facility] Comment on above: Performed By: #### L 3890.6005, L509.8000, BTS, L3890.6100, L3890.6300, L100.0100, L509.4005, L900.0098 ####[facility] [address] [place], [address] Platelets (Bld) [#/Vol] 309 10*3/uL Normal 150-450 [facility] Comment on above: Performed By: #### L 3890.6005, L509.8000, BTS, L3890.6100, L3890.6300, L100.0100, L509.4005, L900.0098 ####[facility] [address] [place], [address] RBC (Bld) [#/Vol] 4.12 10*6/uL Low 4.2-5.4 [facility] Comment on above: Performed By: #### L 3890.6005, L509.8000, BTS, L3890.6100, L3890.6300, L100.0100, L509.4005, L900.0098 ####[facility] [address] [place], [address] RDW SD 43.8 fl Normal 35.1-43.9 [facility] Comment on above: Performed By: #### L 3890.6005, L509.8000, BTS, L3890.6100, L3890.6300, L100.0100, L509.4005, L900.0098 ####[facility] [address] [place], [address] WBC (Bld) [#/Vol] 11.6 10*3/uL High 4.4-11.0 [facility] Comment on above: Performed By: #### L 3890.6005, L509.8000, BTS, L3890.6100, L3890.6300, L100.0100, L509.4005, L900.0098 ####[facility] [address] [place], [address] Chlamydia trachomatis rRNA d etection by probe and target amplification methodOrdered By: Trish Murray on 06-03-2024 C. trachomatis rRNA SINA+probe Ql (Unsp spec) Negative Negative [facility] Eosinophil percentageOrdered By: Trish Murray on 06-03-2024 Eosinophils/100 WBC (Bld) 0.6 % 0-5 [facility] Erythrocyte distribution wid th ratioOrdered By: Trishmiguel Murray on 06-03-2024 Erythrocyte distribution width (RBC) [Ratio] 13.3 % 11.6-14.6 [facility] Erythrocyte distribution wid th standard deviationOrdered By: Trish Murray on 06-03-2024 Erythrocyte distribution width (RBC) [Ratio] 43.8 fl 35.1-43.9 [facility] HIV 1 and HIV-2 antibody ass ay with HIV-1 p24 antigen detectionOrdered By: Trish Murray on 06-03-2024 HIV 1+2 Ab+HIV1 p24 Ag IA Ql Non-Reactive Nonreactive [facility] Hematocrit Auto (Bld) [Volum e fraction]Ordered By: Trish Murray on 06-03-2024 Hematocrit (Bld) [Volume fraction] 36.7 % Low 37-47 [facility] Hemoglobin measurementOrdere d By: Trish Murray on 06-03-2024 Hemoglobin (Bld) [Mass/Vol] 12.1 g/dL 12.0-15.0 [facility] Immature granulocytes/100 WB C Auto (Bld)Ordered By: Trish Murray on 06-03-2024 Immature granulocytes/100 WBC (Bld) 0.300 % 0.0-0.9 [facility] Comment on above: IG% - Immature Granu locytes (promyelocytes, myelocytes and metamyelocytes) > 1% indicates that a LEFT SHIFT is Present. MCV (mean corpuscular volume ) determinationOrdered By: Trish Murray on 06-03-2024 MCV (RBC) [Entitic vol] 89.1 fL 81-99 [facility] Mean corpuscular hemoglobin (MCH) determinationOrdered By: Trish Murray on 06-03-2024 MCH (RBC) [Entitic mass] 29.4 pg 27.0-32.0 [facility] Mean corpuscular hemoglobin concentration (MCHC) determinationOrdered By: Trish Murray on 06-03-2024 MCHC (RBC) [Mass/Vol] 33.0 g/dL 32-36 [facility] Mean platelet volume determi nationOrdered By: Trish Murray on 06-03-2024 Platelet mean volume (Bld) [Entitic vol] 11.1 fL 6.2-12.0 [facility] Monocyte percentageOrdered B y: Trish Murray on 06-03-2024 Monocytes/100 WBC (Bld) 5.5 % 0-10 [facility] NATERAon 06-03-2024 NATURA SEE SCANNED REPORT Normal [facility] Comment on above: Order Comment: Comme nts: NIPT WITHOUT GENDER Performed By: #### L 3890.6005, L509.8000, BTS, L3890.6100, L3890.6300, L100.0100, L509.4005, L900.0098 ####[facility] [address] [place], [place], [id number] Neisseria gonorrhoeae nuclei c acid detection by amplified probe techniqueOrdered By: Trish Murray on 06-03-2024 N. gonorrhoeae DNA ISNA+probe Ql (Unsp spec) Negative Negative [facility] Comment on above: Performed at: =[facility]za[facility] [place] [id number] Director: Maya Barrett MD, Phone: [phone] Neutrophil percentageOrdered By: Trish Murray on 06-03-2024 Neutrophils/100 WBC (Bld) 73.2 % High 47-70 [facility] Nucleated red blood cell per centageOrdered By: Trish Murray on 06-03-2024 Nucleated RBC/100 WBC (Bld) [Ratio] 0 % 0-5 [facility] Paint Tester Office Visit Reporton 06-03-2024 Paint Tester Office Visit Report [facility] [address], [address] [place] [address] OFFICE VISIT Date of Service: 06/03/24 MR#: [id number] Acct: [id number] Name: BRIGID BELLA Rep #: [id number] : 1985 Provider: LIMA holman Age/Sex: 39/F Location: [facility] [place] Status: Signed Intake Vital Signs 02/24/24 08:27 05/03/24 10:41 06/03/24 11:26 Height 5 ft 5 in 5 ft 5 in Weight: 142 lb BMI 23.6 BP 113/76 Intake Visit Reasons: New OB, LMP 03/03/24, JAZMIN 12/08/24 Channel Account Manager Required: No Is patient in pain?: No [...] umbilical cord Supervision of normal Surgical History [place] teeth extracted No pertinent past surgical history [...] current occupational status: employed 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 Date Name GA/Weeks Outcome Route Bth Weight Gen Labor Lgth Anesthesia Del Locatn Provider FOB Unknown 01/08/20 [place] 40 live - full term 7# 10oz Male 12 hour s none [place], [place] Dr. Ibeth Carlos 06/17/22 [place] 40 live - full term 8lbs 1oz Male none [facility] Delivery Date: 06/17/22 Last Updated by: [...] -???-???-???-???-???-? ??-???-???-?? (more content not included)... Normal [facility] Platelet countOrdered By: Danuta Murray on 06-03-2024 Platelets (Bld) [#/Vol] 309 10*3/uL 150-450 [facility] RBC Auto (Bld) [#/Vol]Ordere d By: Trish Murray on 06-03-2024 RBC (Bld) [#/Vol] 4.12 10*6/uL Low 4.2-5.4 [facility] Serum Treponema species anti body detectionOrdered By: Trish Murray on 06-03-2024 Treponema sp Ab Ql (S) Non-Reactive [facility] Type AND Screenon 06-03-2024 Ab SCREEN GEL Negative Normal [facility] Comment on above: Order Comment: PN Performed By: #### L 3890.6005, L509.8000, BTS, L3890.6100, L3890.6300, L100.0100, L509.4005, L900.0098 ####[facility] [address] [place], [place], [address] Urine cultureOrdered By: Jossy Murray on 06-03-2024 Bacteria identified Cx Nom (U) Culture exhibits no growth. [facility] White blood cell (WBC) count Ordered By: Trishmuriel Murray on 06-03-2024 WBC (Bld) [#/Vol] 11.6 10*3/uL High 4.4-11.0 [facility] Thyroidon 03-09-2024 Thyroid [facility] [address] [place] [address] Thyroid MR#: [id number] Acct: [id number] Name: BRIGID BELLA Rep #: [id number] : 1985 F 38 From: Santo acosta MD PCP: Dr. Yousuf Ortiz MD Status: [facility] Study: Thyroid Date of Exam: 03/09/24 Exam# [id number] Ordering Dr: Yousuf Ortiz MD [id number] STUDY: THYROID ULTRASOUND REASON FOR EXAM: Female, [...] EST , CC: Dr. Yousuf Ortiz MD Warehouseman: Signed Normal [facility] CBC W/Diff, Automatedon 10-2 Absolute Lymph 2.59 X10 3/uL Normal 0.83-4.51 [facility] Comment on above: Performed By: #### L 100.0100, L503.0105, L506.0400, L501.9186, L500.4050, L500.4100, L506.1000, L501.9520 #### [facility] [address] [place], [address] Absolute Neut 3.3 X10 3/uL Normal 2.0-7.7 [facility] Comment on above: Performed By: #### L 100.0100, L503.0105, L506.0400, L501.9186, L500.4050, L500.4100, L506.1000, L501.9520 #### [facility] [address] [place], [address] Basophils/100 WBC (Bld) 0.8 % Normal 0-1 [facility] Comment on above: Performed By: #### L 100.0100, L503.0105, L506.0400, L501.9186, L500.4050, L500.4100, L506.1000, L501.9520 #### [facility] [address] [place], [address] Eosinophils/100 WBC (Bld) 1.8 % Normal 0-5 [facility] Comment on above: Performed By: #### L 100.0100, L503.0105, L506.0400, L501.9186, L500.4050, L500.4100, L506.1000, L501.9520 #### [facility] [address] [place], [address] Erythrocyte distribution width (RBC) [Ratio] 12.9 % Normal 11.6-14.6 [facility] Comment on above: Performed By: #### L 100.0100, L503.0105, L506.0400, L501.9186, L500.4050, L500.4100, L506.1000, L501.9520 #### [facility] [address] [place], [address] Hematocrit (Bld) [Volume fraction] 40.4 % Normal 37-47 [facility] Comment on above: Performed By: #### L 100.0100, L503.0105, L506.0400, L501.9186, L500.4050, L500.4100, L506.1000, L501.9520 #### [facility] [address] [place], [address] Hemoglobin (Bld) [Mass/Vol] 12.8 g/dL Normal 12.0-15.0 [facility] Comment on above: Performed By: #### L 100.0100, L503.0105, L506.0400, L501.9186, L500.4050, L500.4100, L506.1000, L501.9520 #### [facility] [address] [place], [address] IG% 0.200 Normal 0.0-0.9 [facility] Comment on above: Result Comment: IG% - Immature Granulocytes (promyelocytes, myelocytes and metamyelocytes) > 1% indicates that a LEFT SHIFT is Present. Performed By: #### L 100.0100, L503.0105, L506.0400, L501.9186, L500.4050, L500.4100, L506.1000, L501.9520 #### [facility] [address] [place], [address] Lymphocytes/100 WBC (Bld) 39.3 % Normal 19-41 [facility] Comment on above: Performed By: #### L 100.0100, L503.0105, L506.0400, L501.9186, L500.4050, L500.4100, L506.1000, L501.9520 #### [facility] [address] [place], [address] MCH (RBC) [Entitic mass] 28.5 pg Normal 27.0-32.0 [facility] Comment on above: Performed By: #### L 100.0100, L503.0105, L506.0400, L501.9186, L500.4050, L500.4100, L506.1000, L501.9520 #### [facility] [address] [place], [address] MCHC (RBC) [Mass/Vol] 31.7 g/dL Low 32-36 [facility] Comment on above: Performed By: #### L 100.0100, L503.0105, L506.0400, L501.9186, L500.4050, L500.4100, L506.1000, L501.9520 #### [facility] [address] [place], [address] MCV (RBC) [Entitic vol] 90.0 fL Normal 81-99 [facility] Comment on above: Performed By: #### L 100.0100, L503.0105, L506.0400, L501.9186, L500.4050, L500.4100, L506.1000, L501.9520 #### [facility] [address] [place], [address] Monocytes/100 WBC (Bld) 8.5 % Normal 0-10 [facility] Comment on above: Performed By: #### L 100.0100, L503.0105, L506.0400, L501.9186, L500.4050, L500.4100, L506.1000, L501.9520 #### [facility] [address] [place], [address] Neutrophils/100 WBC (Bld) 49.4 % Normal 47-70 [facility] Comment on above: Performed By: #### L 100.0100, L503.0105, L506.0400, L501.9186, L500.4050, L500.4100, L506.1000, L501.9520 #### [facility] [address] [place], [address] Nucleated RBC (Bld) [#/Vol] 0 10*3/uL Normal 0-5 [facility] Comment on above: Performed By: #### L 100.0100, L503.0105, L506.0400, L501.9186, L500.4050, L500.4100, L506.1000, L501.9520 #### [facility] [address] [place], [address] Platelet mean volume (Bld) [Entitic vol] 11.9 fL Normal 6.2-12.0 [facility] Comment on above: Performed By: #### L 100.0100, L503.0105, L506.0400, L501.9186, L500.4050, L500.4100, L506.1000, L501.9520 #### [facility] [address] [place], [address] Platelets (Bld) [#/Vol] 296 10*3/uL Normal 150-450 [facility] Comment on above: Performed By: #### L 100.0100, L503.0105, L506.0400, L501.9186, L500.4050, L500.4100, L506.1000, L501.9520 #### [facility] [address] [place], [address] RBC (Bld) [#/Vol] 4.49 10*6/uL Normal 4.2-5.4 [facility] Comment on above: Performed By: #### L 100.0100, L503.0105, L506.0400, L501.9186, L500.4050, L500.4100, L506.1000, L501.9520 #### [facility] [address] [place], [place], [address] RDW SD 43.0 fl Normal 35.1-43.9 [facility] Comment on above: Performed By: #### L 100.0100, L503.0105, L506.0400, L501.9186, L500.4050, L500.4100, L506.1000, L501.9520 #### [facility] [address] [place], [address] WBC (Bld) [#/Vol] 6.6 10*3/uL Normal 4.4-11.0 [facility] Comment on above: Performed By: #### L 100.0100, L503.0105, L506.0400, L501.9186, L500.4050, L500.4100, L506.1000, L501.9520 #### [facility] [address] [place], [place], [id number] Comprehensive Metabolic Prof [facility] 02-24-2024 Albumin [Mass/Vol] 4.3 g/dL Normal 3.2-5.0 [facility] Comment on above: Performed By: #### L 100.0100, L503.0105, L506.0400, L501.9186, L500.4050, L500.4100, L506.1000, L501.9520 ####[facility] [address] [place], [place], [id number] Albumin/Globulin [Mass ratio] 1.2 {ratio} Normal 0.9-2.4 [facility] Comment on above: Performed By: #### L 100.0100, L503.0105, L506.0400, L501.9186, L500.4050, L500.4100, L506.1000, L501.9520 ####[facility] [address] [place], [place], [phone](233) ALK P 42 U/L Low 45-117 [facility] Comment on above: Performed By: #### L 100.0100, L503.0105, L506.0400, L501.9186, L500.4050, L500.4100, L506.1000, L501.9520 ####[facility] [address] [place], [place], [phone]- ALT [Catalytic activity/Vol] 23 U/L Normal 13-56 [facility] Comment on above: Performed By: #### L 100.0100, L503.0105, L506.0400, L501.9186, L500.4050, L500.4100, L506.1000, L501.9520 ####[facility] [address] [place], [address] AST [Catalytic activity/Vol] 13 U/L Low 15-37 [facility] Comment on above: Performed By: #### L 100.0100, L503.0105, L506.0400, L501.9186, L500.4050, L500.4100, L506.1000, L501.9520 ####[facility] [address] [place], [address] Bilirubin [Mass/Vol] 0.50 mg/dL Normal 0.20-1.00 [facility] Comment on above: Result Comment: For patients on eltrombopag therapy, use of Dimension [place] TBIL is not recommended. Performed By: #### L 100.0100, L503.0105, L506.0400, L501.9186, L500.4050, L500.4100, L506.1000, L501.9520 ####[facility] [address] [place], [address] BUN/CRE 21.3 RATIO High 10-20 [facility] Comment on above: Performed By: #### L 100.0100, L503.0105, L506.0400, L501.9186, L500.4050, L500.4100, L506.1000, L501.9520 ####[facility] [address] [place], [address] CA,Total 9.3 mg/dL Normal 8.5-10.1 [facility] Comment on above: Performed By: #### L 100.0100, L503.0105, L506.0400, L501.9186, L500.4050, L500.4100, L506.1000, L501.9520 ####[facility] [address] [place], [address] Chloride [Moles/Vol] 107 mmol/L Normal 98-107 [facility] Comment on above: Performed By: #### L 100.0100, L503.0105, L506.0400, L501.9186, L500.4050, L500.4100, L506.1000, L501.9520 ####[facility] [address] [place], [address] CO2 [Moles/Vol] 26.0 mmol/L Normal 21.0-32.0 [facility] Comment on above: Performed By: #### L 100.0100, L503.0105, L506.0400, L501.9186, L500.4050, L500.4100, L506.1000, L501.9520 ####[facility] [address] [place], [address] Creatinine [Mass/Vol] 0.75 mg/dL Normal 0.55-1.02 [facility] Comment on above: Result Comment: The validity of the calculated GFR GFRAA in patients over 70 years has not been determined. Clinical correlation is essential. Performed By: #### L 100.0100, L503.0105, L506.0400, L501.9186, L500.4050, L500.4100, L506.1000, L501.9520 ####[facility] [address] [place], [address] EST GFR - AA 111 mL/min Normal >60 [facility] Comment on above: Result Comment: Afri can Kazakh GFR Calc Performed By: #### L 100.0100, L503.0105, L506.0400, L501.9186, L500.4050, L500.4100, L506.1000, L501.9520 ####[facility] [address] [place], [place], [id number] GAP 4 Low 5-15 [facility] Comment on above: Performed By: #### L 100.0100, L503.0105, L506.0400, L501.9186, L500.4050, L500.4100, L506.1000, L501.9520 ####[facility] [address] [place], [address] GFR/1.73 sq M.predicted among non-blacks MDRD (S/P/Bld) [Vol rate/Area] 92 mL/min/{1.73_m2} Normal >60 [facility] Comment on above: Result Comment: Non- GFR Calc Performed By: #### L 100.0100, L503.0105, L506.0400, L501.9186, L500.4050, L500.4100, L506.1000, L501.9520 ####[facility] [address] [place], [address] Globulin (S) [Mass/Vol] 3.5 g/dL Normal 2.2-4.2 [facility] Comment on above: Performed By: #### L 100.0100, L503.0105, L506.0400, L501.9186, L500.4050, L500.4100, L506.1000, L501.9520 ####[facility] [address] [place], [address] Glucose [Mass/Vol] 89 mg/dL Normal 74-106 [facility] Comment on above: Performed By: #### L 100.0100, L503.0105, L506.0400, L501.9186, L500.4050, L500.4100, L506.1000, L501.9520 ####[facility] [address] [place], [address] Potassium [Moles/Vol] 3.9 mmol/L Normal 3.5-5.1 [facility] Comment on above: Performed By: #### L 100.0100, L503.0105, L506.0400, L501.9186, L500.4050, L500.4100, L506.1000, L501.9520 ####[facility] [address] [place], [address] Sodium [Moles/Vol] 136 mmol/L Normal 136-145 [facility] Comment on above: Performed By: #### L 100.0100, L503.0105, L506.0400, L501.9186, L500.4050, L500.4100, L506.1000, L501.9520 ####[facility] [address] [place], [address] T PROT 7.8 g/dL Normal 6.4-8.2 [facility] Comment on above: Performed By: #### L 100.0100, L503.0105, L506.0400, L501.9186, L500.4050, L500.4100, L506.1000, L501.9520 ####[facility] [address] [place], [address] Urea nitrogen [Mass/Vol] 16 mg/dL Normal 7-18 [facility] Comment on above: Performed By: #### L 100.0100, L503.0105, L506.0400, L501.9186, L500.4050, L500.4100, L506.1000, L501.9520 ####[facility] [address] [place], [address] Lipid Profileon 02-24-2024 Cholesterol [Mass/Vol] 265 mg/dL High 200 [facility] Comment on above: Result Comment: <200 mg/dL Desirable 200-240 mg/dL Borderline >240 mg/dL High Risk Performed By: #### L 100.0100, L503.0105, L506.0400, L501.9186, L500.4050, L500.4100, L506.1000, L501.9520 ####[facility] [address] [place], [address] Cholesterol in HDL [Mass/Vol] 77 mg/dL Normal [facility] Comment on above: Result Comment: The drugs N-Acetylcysteine and Metamizole may falsely depress this assay. Reference Range HDL <40 mg/dL Low HDL Cholesterol HDL >or= 60 mg/dL High HDL Cholesterol Performed By: #### L 100.0100, L503.0105, L506.0400, L501.9186, L500.4050, L500.4100, L506.1000, L501.9520 ####[facility] [address] [place], [address] Cholesterol in LDL [Mass/Vol] 176 mg/dL High 0-130 [facility] Comment on above: Performed By: #### L 100.0100, L503.0105, L506.0400, L501.9186, L500.4050, L500.4100, L506.1000, L501.9520 ####[facility] [address] [place], [place], [id number] Cholesterol in VLDL [Mass/Vol] 12 mg/dL Normal 5-40 [facility] Comment on above: Performed By: #### L 100.0100, L503.0105, L506.0400, L501.9186, L500.4050, L500.4100, L506.1000, L501.9520 ####[facility] [address] [place], [place], [address] Triglyceride [Mass/Vol] 58 mg/dL Normal [facility] Comment on above: Result Comment: The drugs N-Acetylcysteine and Metamizole may falsely depress this assay. Serum Triglycerides Reference Interval Normal <150 mg/dL Borderline high 150 - 199 mg/dL High 200 - 499 mg/dL Very High > or = 500 mg/dL Performed By: #### L 100.0100, L503.0105, L506.0400, L501.9186, L500.4050, L500.4100, L506.1000, L501.9520 ####[facility] [address] [place], [place], [id number] T3 Total - Triiodothyronineo n 02-24-2024 T3 Total 0.92 ng/mL Normal 0.6-1.81 [facility] Comment on above: Performed By: #### L 100.0100, L503.0105, L506.0400, L501.9186, L500.4050, L500.4100, L506.1000, L501.9520 ####[facility] [address] [place], [place], [phone] T4 Free Directon 02-24-2024 T4 FREE DIRECT 0.77 ng/dL Normal 0.76-1.46 [facility] Comment on above: Performed By: #### L 100.0100, L503.0105, L506.0400, L501.9186, L500.4050, L500.4100, L506.1000, L501.9520 ####[facility] [address] [place], [place], [id number] Thyroid Stim Hormone (TSH)on 02-24-2024 TSH 3.400 uIU/mL Normal 0.358-3.740 [facility] Comment on above: Performed By: #### L 100.0100, L503.0105, L506.0400, L501.9186, L500.4050, L500.4100, L506.1000, L501.9520 ####[facility] [address] [place], [address] Vitamin B12on 02-24-2024 Cobalamin (Vitamin B12) [Mass/Vol] 716 pg/mL Normal 211-911 [facility] Comment on above: Performed By: #### L 100.0100, L503.0105, L506.0400, L501.9186, L500.4050, L500.4100, L506.1000, L501.9520 ####[facility] [address] [place], [address] Vitamin D,25 Hydroxyon 02-23 Vitamin D 25-OH 26.0 ng/mL Normal [facility] Comment on above: Result Comment: Diana min D 25(OH) Status Range Deficiency <20 ng/mL (50nmol/L) Insufficiency 20 - 30 ng/mL (50 - 75 nmol/L) Sufficiency 30 - 100 ng/mL (75 - 250 nmol/L) Toxicity >100 ng/mL (>250 nmol/L) Performed By: #### L 100.0100, L503.0105, L506.0400, L501.9186, L500.4050, L500.4100, L506.1000, L501.9520 ####[facility] [address] [place], [address] Internal Medicine Office Vis iton 02-23-2024 Internal Medicine Office Visit [facility] [address] [place] [address] OFFICE VISIT Date of Service: 02/24/24 MR#: [id number] Acct: [id number] Name: BRIGID BELLA Rep #: [id number] 18 : 1985 Provider: Dr. 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 She was seeing somebody at the [facility] and last saw them last year. [...] or oth (more content not included)... Normal [facility] CNOVon 08-23-2023 CN Office Visit (UCWSTR ) BRIGID BELLA ([id number]) 1985 F Date Time Provider Department 08/23/23 10:00 AM TITA HOUSER [facility] During your visit today, we recorded the following information about you: Temperature Pulse Respiration Blood pressure 97.2 degrees 64/minute 18/minute 100/65 Weight Last Period 61 kg 08/23/23 Tita Houser APRN.CALL PERSON 08/23/2023 10:35 AM Signed This note was created using [employer]. Subjective Brigid Dorman Shayne is a 38 [...] history is provided by the patient. No english language arts teacher was used. Eye Problem This is a [...] Cardiovascular: Rate (more content not included)... Normal [facility] [place] 06-29-[address] [facility] Telephone (FAMWS) BRIGID BELLA ([id number]) 1985 F Date Time Provider Department 06/29/23 [...] have her continue with diet as requested. Jaun A Villarreal LPN 06/29/2023 4:53 PM Signed [...] by JUAN A VILLARREAL on 07/06/23 Normal [facility] Lipid 1996 panelon 4 Cholesterol [Mass/Vol] 221 mg/dL High <200 Cl [facility] Comment on above: Order Comment: Speci men Type: BLOOD SPECIMEN Ordering Facility: [facility] Address: [address] [place] [address] Result Comment: <200 mg/dL, Desirable 200-239 mg/dL, Borderline high >239 mg/dL, High Performed By: #### 2 4331-1 #### [facility] CLIA [id number] [address] [place] [address] Cholesterol in HDL [Mass/Vol] 63 mg/dL Normal >39 [facility] Comment on above: Order Comment: Jacky men Type: BLOOD SPECIMEN Ordering Facility: [facility] Address: [address] [place] [address] Result Comment: 40-5 9 mg/dL, Acceptable >59 mg/dL, High: Negative risk factor for coronary heart disease <40 mg/dL, Low: Positive risk factor for coronary heart disease Performed By: #### 2 4331-1 #### [facility] CLIA [id number] [address] [place] [address] Cholesterol in LDL [Mass/Vol] 150 mg/dL High <100 [facility] Comment on above: Order Comment: Jacky armendariz Type: BLOOD SPECIMEN Ordering Facility: [facility] Address: [address] [place] [address] Result Comment: <100 mg/dL, Optimal 100-129 mg/dL, Near optimal/above optimal 130-159 mg/dL, Borderline high 160-189 mg/dL, High >189 mg/dL, Very high Secondary prevention optimal LDL Cholesterol levels are recommended to be < 70 mg/dL Performed By: #### 2 4331-1 #### [facility] IA [id number] [address] [place] [address] OF [facility] Cholesterol in LDL/Cholesterol in HDL [Mass ratio] 2.38 {ratio} Normal <2.54 [facility] Comment on above: Order Comment: Jacky kala Type: BLOOD SPECIMEN Ordering Facility: [facility] Address: [address] [place] [address] Result Comment: Ravi brown: 1. National Cholesterol Education Program ATP III Guideline At-A-Glance Quick Desk Reference: National Heart, Lung, and Blood [place]. National Institutes of Health. 2001: NIH Publication No. 01-3305. 2. An International Atherosclerosis Society position paper: global recommendations for the management of dyslipidemia: executive summary, Atherosclerosis. 2014: 232(2):410-413. Performed By: #### 2 4331-1 #### [facility] CLIA [id number] [address] [place] [address] [place] Cholesterol in VLDL [Mass/Vol] 8 mg/dL Normal <30 [facility] Comment on above: Order Comment: Jacky men Type: BLOOD SPECIMEN Ordering Facility: [facility] Address: [address] [place] [address] Performed By: #### 2 4331-1 #### [facility] CLIA [id number] [address] [place] [address] [place] Cholesterol non HDL [Mass/Vol] 158 mg/dL High <130 [facility] Comment on above: Order Comment: Jacky armendariz Type: BLOOD SPECIMEN Ordering Facility: [facility] Address: [address] [place] [address] Result Comment: <130 mg/dL, Optimal 130-159 mg/dL, Near optimal/above optimal 160-189 mg/dL, Borderline high 190-219 mg/dL, High >219 mg/dL, Very high Secondary prevention optimal non HDL Cholesterol levels are recommended to be <100 mg/dL Performed By: #### 2 4331-1 #### [facility] CLIA [id number] [address] [place] [address] [place] Cholesterol.total/Chol esterol in HDL [Mass ratio] 3.51 {ratio} Normal <5.10 [facility] Comment on above: Order Comment: Jacky armendariz Type: BLOOD SPECIMEN Ordering Facility: [facility] Address: [address] [place] [address] Performed By: #### 2 4331-1 #### [facility] CLIA [id number] [address] [place] [address] [place] FASTING TIME 13 hrs Normal [facility] Comment on above: Order Comment: Jacky men Type: BLOOD SPECIMEN Ordering Facility: [facility] Address: [address] [place] [address] Performed By: #### 2 4331-1 #### [facility] CLIA [id number] [address] [place] [address] [place] Triglyceride [Mass/Vol] 40 mg/dL Normal <150 [facility] Comment on above: Order Comment: Speci men Type: BLOOD SPECIMEN Ordering Facility: [facility] Address: [address] [place] [address] Result Comment: <150 mg/dL, Normal 150-199 mg/dL, Borderline high 200-499 mg/dL, High >499 mg/dL, Very high Performed By: #### 2 4331-1 #### [facility] CLIA [id number] [address] [place] [address] [place] CNOVon 03-20-2023 CNOV Office Visit (FAMPWS ) BRIGID BELLA ([id number]) 1985 F Date Time Provider Department 03/20/23 8:00 AM [facility], we recorded [...] last [address] Small for RETAIL AIDE with appointment in July. 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 [...] No history of dysuria, frequency or incontinence RETAIL AIDE: Negative for abnormal vaginal bleeding, abnormal vaginal [...] rash. 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 Head: Normocephalic, no masses, lesions, tenderness or [...] 04/07/2032 Hepatitis (more content not included)... Normal [facility] CBC W Auto Differential pane l (Bld)on 03-13-2023 Basophils (Bld) [#/Vol] 0.04 10*3/uL Normal <0.11 [facility] Comment on above: Order Comment: Speci men Type: BLOOD SPECIMEN Ordering Facility: [facility] Address: [address] [place] [address] Performed By: #### 5 7021-8 #### [facility] CLIA [id number] [address] [facility] [place] [address] [place] Basophils/100 WBC (Bld) 0.6 % Normal [facility] Comment on above: Order Comment: Speci men Type: BLOOD SPECIMEN Ordering Facility: [facility] Address: [address] [place] [address] Performed By: #### 5 7021-8 #### [facility] CLIA [id number] [address] [place] [address] [place] Differential cell count method Nom (Bld) Auto Normal [facility] Comment on above: Order Comment: Speci men Type: BLOOD SPECIMEN Ordering Facility: [facility] Address: [address] [place] [address] Performed By: #### 5 7021-8 #### [facility] CLIA [id number] [address] [place] [address] [place] Eosinophils (Bld) [#/Vol] 0.22 10*3/uL Normal <0.46 [facility] Comment on above: Order Comment: Speci men Type: BLOOD SPECIMEN Ordering Facility: [facility] Address: [address] [place] [address] Performed By: #### 5 7021-8 #### [facility] CLIA [id number] [address] [place] [address] [place] Eosinophils/100 WBC (Bld) 3.3 % Normal [facility] Comment on above: Order Comment: Speci men Type: BLOOD SPECIMEN Ordering Facility: [facility] Address: [address] [place] [address] Performed By: #### 5 7021-8 #### [facility] CLIA [id number] [address] [place] [address] [place] Erythrocyte distribution width (RBC) [Ratio] 12.6 % Normal 11.5-15.0 [facility] Comment on above: Order Comment: Speci men Type: BLOOD SPECIMEN Ordering Facility: [facility] Address: [address] [place] [address] Performed By: #### 5 7021-8 #### [facility] CLIA [id number] [address] [place] [address] [place] Hematocrit (Bld) [Volume fraction] 40.1 % Normal 36.0-46.0 [facility] Comment on above: Order Comment: Speci men Type: BLOOD SPECIMEN Ordering Facility: [facility] Address: [address] [place] [address] Performed By: #### 5 7021-8 #### [facility] CLIA [id number] [address] [place] [address] [place] Hemoglobin (Bld) [Mass/Vol] 13.0 g/dL Normal 11.5-15.5 [facility] Comment on above: Order Comment: Speci men Type: BLOOD SPECIMEN Ordering Facility: [facility] Address: [address] [place] [address] Performed By: #### 5 7021-8 #### [facility] CLIA [id number] [address] [place] [address] [place] Immature granulocytes (Bld) [#/Vol] 10*3/uL Normal <0.10 [facility] Comment on above: Order Comment: Speci men Type: BLOOD SPECIMEN Ordering Facility: [facility] Address: [address] [place] [address] Performed By: #### 5 7021-8 #### [facility] CLIA [id number] [address] [place] [address] [place] Immature granulocytes/100 WBC (Bld) 0.1 % Normal [facility] Comment on above: Order Comment: Speci men Type: BLOOD SPECIMEN Ordering Facility: [facility] Address: [address] [place] [address] Performed By: #### 5 7021-8 #### [facility] CLIA [id number] [address] [place] [address] [place] Lymphocytes (Bld) [#/Vol] 2.45 10*3/uL Normal 1.00-4.00 [facility] Comment on above: Order Comment: Speci men Type: BLOOD SPECIMEN Ordering Facility: [facility] Address: [address] [place] [address] Performed By: #### 5 7021-8 #### [facility] CLIA [id number] [address] [place] [address] [place] Lymphocytes/100 WBC (Bld) 36.2 % Normal [facility] Comment on above: Order Comment: Speci men Type: BLOOD SPECIMEN Ordering Facility: [facility] Address: [address] [place] [address] Performed By: #### 5 7021-8 #### [facility] CLIA [id number] [address] [place] [address] [place] MCH (RBC) [Entitic mass] 29.1 pg Normal 26.0-34.0 [facility] Comment on above: Order Comment: Speci men Type: BLOOD SPECIMEN Ordering Facility: [facility] Address: [address] [place] [address] Performed By: #### 5 7021-8 #### [facility] CLIA [id number] [address] [place] [address] [place] MCHC (RBC) [Mass/Vol] 32.4 g/dL Normal 30.5-36.0 [facility] Comment on above: Order Comment: Speci men Type: BLOOD SPECIMEN Ordering Facility: [facility] Address: [address] [place] [address] Performed By: #### 5 7021-8 #### [facility] CLIA [id number] [address] [place] [address] [place] MCV (RBC) [Entitic vol] 89.7 fL Normal 80.0-100.0 [facility] Comment on above: Order Comment: Speci men Type: BLOOD SPECIMEN Ordering Facility: [facility] Address: [address] [place] [address] Performed By: #### 5 7021-8 #### [facility] CLIA [id number] [address] [place] [address] [place] Monocytes (Bld) [#/Vol] 0.60 10*3/uL Normal <0.87 [facility] Comment on above: Order Comment: Speci men Type: BLOOD SPECIMEN Ordering Facility: [facility] Address: [address] [place] [address] Performed By: #### 5 7021-8 #### [facility] CLIA [id number] [address] [place] [address] [place] Monocytes/100 WBC (Bld) 8.9 % Normal [facility] Comment on above: Order Comment: Speci men Type: BLOOD SPECIMEN Ordering Facility: [facility] Address: [address] [place] [address] Performed By: #### 5 7021-8 #### [facility] CLIA [id number] [address] [place] [address] [place] Neutrophils (Bld) [#/Vol] 3.44 10*3/uL Normal 1.45-7.50 [facility] Comment on above: Order Comment: Speci men Type: BLOOD SPECIMEN Ordering Facility: [facility] Address: [address] [place] [address] Performed By: #### 5 7021-8 #### [facility] CLIA [id number] [address] [place] [address] [place] Neutrophils/100 WBC (Bld) 50.9 % Normal [facility] Comment on above: Order Comment: Speci men Type: BLOOD SPECIMEN Ordering Facility: [facility] Address: [address] [place] [address] Performed By: #### 5 7021-8 #### [facility] CLIA [id number] [address] [place] [address] [place] Nucleated RBC (Bld) [#/Vol] 10*3/uL Normal <0.01 [facility] Comment on above: Order Comment: Speci men Type: BLOOD SPECIMEN Ordering Facility: [facility] Address: [address] [place] [address] Performed By: #### 5 7021-8 #### [facility] CLIA [id number] [address] [place] [address] [place] Nucleated RBC/100 WBC (Bld) [Ratio] 0.0 /100 WBC Normal [facility] Comment on above: Order Comment: Speci men Type: BLOOD SPECIMEN Ordering Facility: [facility] Address: [address] [place] [address] Performed By: #### 5 7021-8 #### [facility] CLIA [id number] [address] [place] [address] [place] Platelet mean volume (Bld) [Entitic vol] 11.4 fL Normal 9.0-12.7 [facility] Comment on above: Order Comment: Speci men Type: BLOOD SPECIMEN Ordering Facility: [facility] Address: [address] [place] [address] Performed By: #### 5 7021-8 #### [facility] CLIA [id number] [facility] [place] [place] [address] [place] Platelets (Bld) [#/Vol] 293 10*3/uL Normal 150-400 [facility] Comment on above: Order Comment: Speci men Type: BLOOD SPECIMEN Ordering Facility: [facility] Address: [address] [place] [address] Performed By: #### 5 7021-8 #### [facility] CLIA [id number] [address] [place] [address] [place] RBC (Bld) [#/Vol] 4.47 10*6/uL Normal 3.90-5.20 [facility] Comment on above: Order Comment: Speci men Type: BLOOD SPECIMEN Ordering Facility: [facility] Address: [address] [place] [address] Performed By: #### 5 7021-8 #### [facility] CLIA [id number] [address] [place] [address] [place] WBC (Bld) [#/Vol] 6.76 10*3/uL Normal 3.70-11.00 [facility] Comment on above: Order Comment: Speci men Type: BLOOD SPECIMEN Ordering Facility: [facility] Address: [address] [place] [address] Performed By: #### 5 7021-8 #### [facility] CLIA [id number] [address] [place] [address] [place] Comprehensive metabolic 2000 panelon 03-13-2023 Albumin [Mass/Vol] 4.7 g/dL Normal 3.9-4.9 [facility] Comment on above: Order Comment: Speci men Type: BLOOD SPECIMEN Ordering Facility: [facility] Address: [address] [place] [address] Performed By: #### 2 4331-1, 12518-9 #### [facility] CLIA [id number] [address] [place] [address] [place] ALP [Catalytic activity/Vol] 72 U/L Normal 34-123 [facility] Comment on above: Order Comment: Speci men Type: BLOOD SPECIMEN Ordering Facility: [facility] Address: [address] [place] [address] Performed By: #### 2 4331-1, 01258-0 #### [facility] CLIA [id number] [address] [place] [address] [place] ALT [Catalytic activity/Vol] 16 U/L Normal 7-38 [facility] Comment on above: Order Comment: Speci men Type: BLOOD SPECIMEN Ordering Facility: [facility] Address: [address] [place] [address] Performed By: #### 2 4331-1, 30387-0 #### [facility] CLIA [id number] [address] [place] [id number] [place] Anion gap [Moles/Vol] 12 mmol/L Normal 9-18 [facility] Comment on above: Order Comment: Speci men Type: BLOOD SPECIMEN Ordering Facility: [facility] Address: [address] [place] [address] Performed By: #### 2 4331-1, #### [facility] CLIA [id number] [address] [place] [id number] [place] AST [Catalytic activity/Vol] 20 U/L Normal 13-35 [facility] Comment on above: Order Comment: Speci men Type: BLOOD SPECIMEN Ordering Facility: [facility] Address: [address] [place] [address] Performed By: #### 2 4331-1, #### [facility] CLIA [id number] [address] [place] [address] [place] Bilirubin [Mass/Vol] 0.7 mg/dL Normal 0.2-1.3 [facility] Comment on above: Order Comment: Speci men Type: BLOOD SPECIMEN Ordering Facility: [facility] Address: [address] [place] [address] Performed By: #### 2 4331-1, #### [facility] CLIA [id number] [address] [place] [address] [place] Calcium [Mass/Vol] 9.6 mg/dL Normal 8.5-10.2 [facility] Comment on above: Order Comment: Speci men Type: BLOOD SPECIMEN Ordering Facility: [facility] Address: [address] [place] [address] Performed By: #### 2 4331-1, #### [facility] CLIA [id number] [address] [place] [address] [place] Chloride [Moles/Vol] 102 mmol/L Normal 97-105 [facility] Comment on above: Order Comment: Speci men Type: BLOOD SPECIMEN Ordering Facility: [facility] Address: [address] [place] [address] Performed By: #### 2 4331-1, #### [facility] CLIA [id number] [address] [place] [address] [place] CO2 [Moles/Vol] 25 mmol/L Normal 22-30 [facility] Comment on above: Order Comment: Speci men Type: BLOOD SPECIMEN Ordering Facility: [facility] Address: [address] [place] [address] Performed By: #### 2 433-, #### [facility] CLIA [id number] [address] [place] [address] [place] Creatinine [Mass/Vol] 0.72 mg/dL Normal 0.58-0.96 [facility] Comment on above: Order Comment: Speci men Type: BLOOD SPECIMEN Ordering Facility: [facility] Address: [address] [place] [address] Performed By: #### 2 433-, #### [facility] CLIA [id number] [address] [place] [address] [place] Creatinine and Glomerular filtration rate.predicted panel (S/P/Bld) 111 mL/min/1.73m??? Normal >=60 [facility] Comment on above: Order Comment: Speci men Type: BLOOD SPECIMEN Ordering Facility: [facility] Address: [address] [place] [address] Result Comment: Vanessa mated Glomerular Filtration Rate [...] GFR. Performed By: #### 2 4331-1, #### [facility] CLIA [id number] [address] [place] [address] [place] Glucose [Mass/Vol] 80 mg/dL Normal 74-99 [facility] Comment on above: Order Comment: Jacky armendariz Type: BLOOD SPECIMEN Ordering Facility: [facility] Address: [address] [place] [address] Result Comment: The [place] Diabetes Association (ADA) provides guidance for cutoff [...] Standards of Medical Care in Diabetes 2016, [place] Diabetes Association. Diabetes Care. 2016.39(Suppl 1). Performed By: #### 2 4331-1, 40525-3 #### [facility] CLIA [id number] [facility] [place] [address] [place] Potassium [Moles/Vol] 4.3 mmol/L Normal 3.7-5.1 [facility] Comment on above: Order Comment: Jacky armendariz Type: BLOOD SPECIMEN Ordering Facility: [facility] Address: [address] [place] [address] Performed By: #### 2 4331-, #### [facility] CLIA [id number] [facility] [place] [address] [place] Protein [Mass/Vol] 7.5 g/dL Normal 6.3-8.0 [facility] Comment on above: Order Comment: Jacky armendariz Type: BLOOD SPECIMEN Ordering Facility: [facility] Address: [address] [place] [address] Performed By: #### 2 4331-1, #### [facility] CLIA [id number] [address] [place] [address] [place] Sodium [Moles/Vol] 139 mmol/L Normal 136-144 [facility] Comment on above: Order Comment: Speci men Type: BLOOD SPECIMEN Ordering Facility: [facility] Address: [address] [place] [address] Performed By: #### 2 4331-1, 57837-1 #### [facility] CLIA [id number] [address] [place] [address] [place] Urea nitrogen [Mass/Vol] 13 mg/dL Normal 7-21 [facility] Comment on above: Order Comment: Speci men Type: BLOOD SPECIMEN Ordering Facility: [facility] Address: [address] [place] [address] Performed By: #### 2 4331-1, #### [facility] CLIA [id number] [address] [place] [address] [place] Lipid 1996 panelon 3 Cholesterol [Mass/Vol] 279 mg/dL High <200 [facility] Comment on above: Order Comment: Speci men Type: BLOOD SPECIMEN Ordering Facility: [facility] Address: [address] [place] [address] Result Comment: <200 mg/dL, Desirable 200-239 mg/dL, Borderline high >239 mg/dL, High Performed By: #### 2 4331-1, #### [facility] CLIA [id number] [address] [place] [address] [place] Cholesterol in HDL [Mass/Vol] 73 mg/dL Normal >39 [facility] Comment on above: Order Comment: Speci men Type: BLOOD SPECIMEN Ordering Facility: [facility] Address: [address] [place] [address] Result Comment: 40-5 9 mg/dL, Acceptable >59 mg/dL, High: Negative risk factor for coronary heart disease <40 mg/dL, Low: Positive risk factor for coronary heart disease Performed By: #### 2 4331-1, 96878-1 #### [facility] CLIA [id number] [address] [place] [address] [place] Cholesterol in LDL [Mass/Vol] 197 mg/dL High <100 [facility] Comment on above: Order Comment: Jacky armendariz Type: BLOOD SPECIMEN Ordering Facility: [facility] Address: [address] [place] [address] Result Comment: <100 mg/dL, Optimal 100-129 mg/dL, Near optimal/above optimal 130-159 mg/dL, Borderline high 160-189 mg/dL, High >189 mg/dL, Very high Secondary prevention optimal LDL Cholesterol levels are recommended to be < 70 mg/dL Performed By: #### 2 4331-1, 10147-7 #### [facility] CLIA [id number] [address] [place] [address] [place] Cholesterol in LDL/Cholesterol in HDL [Mass ratio] 2.70 {ratio} High <2.54 [facility] Comment on above: Order Comment: Jacky armendariz Type: BLOOD SPECIMEN Ordering Facility: [facility] Address: [address] [place] [address] Result Comment: Refe kevin: 1. National Cholesterol Education Program ATP III Guideline At-A-Glance Quick Desk Reference: National Heart, Lung, and Blood [place]. National Institutes of Health. 2001: NIH Publication No. 01-3305. 2. An International Atherosclerosis Society position paper: global recommendations for the management of dyslipidemia: executive summary, Atherosclerosis. 2014: 232(2):410-413. Performed By: #### 2 4331-1, 68248-2 #### [facility] CLIA [id number] [address] [place], [place] [address] [address] [place] Cholesterol in VLDL [Mass/Vol] 9 mg/dL Normal <30 [facility] Comment on above: Order Comment: Jacky armendariz Type: BLOOD SPECIMEN Ordering Facility: [facility] Address: [address] [place] [address] Performed By: #### 2 4331-1, 17533-2 #### [facility] CLIA [id number] [address] [facility] [id number] [place] Cholesterol non HDL [Mass/Vol] 206 mg/dL High <130 [facility] Comment on above: Order Comment: Speci men Type: BLOOD SPECIMEN Ordering Facility: [facility] Address: [address] [place] [address] Result Comment: <130 mg/dL, Optimal 130-159 mg/dL, Near optimal/above optimal 160-189 mg/dL, Borderline high 190-219 mg/dL, High >219 mg/dL, Very high Secondary prevention optimal non HDL Cholesterol levels are recommended to be <100 mg/dL Performed By: #### 2 4331-1, 54410-2 #### [facility] CLIA [id number] [address] [place] [address] [place] Cholesterol.total/Chol esterol in HDL [Mass ratio] 3.82 {ratio} Normal <5.10 [facility] Comment on above: Order Comment: Speci men Type: BLOOD SPECIMEN Ordering Facility: [facility] Address: [address] [place] [address] Performed By: #### 2 4331-1, 49713-7 #### [facility] CLIA [id number] [address] [place] [address] [place] FASTING TIME 14 hrs Normal [facility] Comment on above: Order Comment: Speci men Type: BLOOD SPECIMEN Ordering Facility: [facility] Address: [address] [place] [address] Performed By: #### 2 4331-1, 24229-1 #### [facility] CLIA [id number] [address] [place] [address] [place] Triglyceride [Mass/Vol] 43 mg/dL Normal <150 [facility] Comment on above: Order Comment: Speci men Type: BLOOD SPECIMEN Ordering Facility: [facility] Address: [address] [place] [address] Result Comment: <150 mg/dL, Normal 150-199 mg/dL, Borderline high 200-499 mg/dL, High >499 mg/dL, Very high Performed By: #### 2 4331-1, 65089-6 #### [facility] CLIA [id number] [address] [place] [address] STATES [place] [facility] CNOVon 12-26-2022 CNOV Office Visit (FAMPWS ) BRIGID BELLA ([id number]) 1985 F Date Time Provider Department 12/26/22 [...] which included preparing to see the patient, [id number] patient care, completing clinical documentation, obtaining and/or [...] care [Z76.89] Depression screening [Z13.31] Order(s):DEPRESSION SCREENING/ASSESSMENT [[id number]] Order (more content not included)... Normal [facility] Absolute lymphocyte countOrd ered By: Trish Murray on 06-17-2022 Lymphocytes Auto (Unsp spec) [#/Vol] 2.93 10*3/uL 0.83-4.51 [facility] Basophil percentageOrdered B y: Trish Murray on 06-17-2022 Basophils/100 WBC (Bld) 0.2 % 0-1 [facility] Eosinophils/100 WBC (Bld) 0.7 % 0-5 [facility] Neutrophils (Bld) [#/Vol] 6.9 10*3/uL 2.0-7.7 [facility] Neutrophils/100 WBC (Bld) 62.7 % 47-70 [facility] WBC (Bld) [#/Vol] 10.9 10*3/uL 4.4-11.0 [facility] Blood erythrocytes count (nu mber/volume)Ordered By: Trish Murray on 06-17-2022 RBC (Bld) [#/Vol] 4.03 10*6/uL 4.2-5.4 [facility] Blood hemoglobin measurement (mass/volume)Ordered By: Trish Murray on 06-17-2022 Hemoglobin (Bld) [Mass/Vol] 12.3 g/dL 12.0-15.0 [facility] Blood lymphocytes/100 leukoc ytesOrdered By: Trish Murray on 06-17-2022 Lymphocytes/100 WBC (Bld) 26.8 % 19-41 [facility] Blood monocytes/100 leukocyt esOrdered By: Trish Murray on 06-17-2022 Monocytes/100 WBC (Bld) 9.2 % 0-10 [facility] Blood platelet mean volumeOr dered By: Trish Murray on 06-17-2022 Platelet mean volume (Bld) [Entitic vol] 12.9 fL 6.2-12.0 [facility] Determination of erythrocyte mean corpuscular volume (MCV)Ordered By: Trish Murray on 06-17-2022 MCV (RBC) [Entitic vol] 91.6 fL 81-99 [facility] Hematocrit Auto (Bld) [Volum e fraction]Ordered By: Trish Murray on 06-17-2022 Hematocrit (Bld) [Volume fraction] 36.9 % 37-47 [facility] Laboratory - Hematology and Cell countsOrdered By: Trish Murray on 06-17-2022 Erythrocyte distribution width (RBC) [Entitic vol] 45.1 fL 35.1-43.9 [facility] Erythrocyte distribution width (RBC) [Ratio] 13.4 % 11.6-14.6 [facility] Immature granulocytes/100 WBC (Bld) 0.400 % 0.0-0.9 [facility] Comment on above: IG% - Immature Granu locytes (promyelocytes, myelocytes and metamyelocytes) > 1% indicates that a LEFT SHIFT is Present. MCH (RBC) [Entitic mass] 30.5 pg 27.0-32.0 [facility] Nucleated RBC/100 WBC (Bld) [Ratio] 0 % 0-5 [facility] MCHC Auto (RBC) [Mass/Vol]Or dered By: Trish Murray on 06-17-2022 MCHC (RBC) [Mass/Vol] 33.3 g/dL 32-36 [facility] Platelets bldOrdered By: Jossy Murray on 06-17-2022 Platelets (Bld) [#/Vol] 206 10*3/uL 150-450 [facility] Laboratory - Chemistry and C hemistry - challengeon 06-13-2022 Glucose Ql (U) Negative [facility] Laboratory - Urinalysison Protein Ql (U) Negative [facility] Laboratory - Chemistry and C hemistry - challengeon 05-30-2022 Glucose Ql (U) Negative [facility] Laboratory - Urinalysison Protein Ql (U) Negative [facility] No Panel InformationOrdered By: Dr. Mcconnell on 05-27-2022 Group B Streptococcus Culture Group B Beta Streptococcus is not isolated. [facility] Absolute lymphocyte countOrd ered By: Dr. Polk on 05-23-2022 Lymphocytes Auto (Unsp spec) [#/Vol] 1.93 10*3/uL 0.83-4.51 [facility] Basophil percentageOrdered B y: Dr. Polk on 05-23-2022 Basophils/100 WBC (Bld) 0.2 % 0-1 [facility] Eosinophils/100 WBC (Bld) 0.8 % 0-5 [facility] Neutrophils (Bld) [#/Vol] 7.6 10*3/uL 2.0-7.7 [facility] Neutrophils/100 WBC (Bld) 71.6 % 47-70 [facility] WBC (Bld) [#/Vol] 10.6 10*3/uL 4.4-11.0 [facility] Blood erythrocytes count (nu mber/volume)Ordered By: Dr. Polk on 05-23-2022 RBC (Bld) [#/Vol] 3.97 10*6/uL 4.2-5.4 [facility] Blood hemoglobin measurement (mass/volume)Ordered By: Dr. Polk on 05-23-2022 Hemoglobin (Bld) [Mass/Vol] 12.0 g/dL 12.0-15.0 [facility] Blood lymphocytes/100 leukoc ytesOrdered By: Dr. Polk on 05-23-2022 Lymphocytes/100 WBC (Bld) 18.1 % 19-41 [facility] Blood monocytes/100 leukocyt esOrdered By: Dr. Polk on 05-23-2022 Monocytes/100 WBC (Bld) 8.7 % 0-10 [facility] Blood platelet mean volumeOr dered By: Dr. Polk on 05-23-2022 Platelet mean volume (Bld) [Entitic vol] 11.6 fL 6.2-12.0 [facility] Determination of erythrocyte mean corpuscular volume (MCV)Ordered By: Dr. Polk on 05-23-2022 MCV (RBC) [Entitic vol] 90.9 fL 81-99 [facility] Hematocrit Auto (Bld) [Volum e fraction]Ordered By: Dr. Polk on 05-23-2022 Hematocrit (Bld) [Volume fraction] 36.1 % 37-47 [facility] Laboratory - Chemistry and C hemistry - challengeon 05-23-2022 Glucose Ql (U) Negative [facility] Laboratory - Hematology and Cell countsOrdered By: Dr. Polk on 05-23-2022 Erythrocyte distribution width (RBC) [Entitic vol] 45.3 fL 35.1-43.9 [facility] Erythrocyte distribution width (RBC) [Ratio] 13.5 % 11.6-14.6 [facility] Immature granulocytes/100 WBC (Bld) 0.600 % 0.0-0.9 [facility] Comment on above: IG% - Immature Granu locytes (promyelocytes, myelocytes and metamyelocytes) > 1% indicates that a LEFT SHIFT is Present. MCH (RBC) [Entitic mass] 30.2 pg 27.0-32.0 [facility] Nucleated RBC/100 WBC (Bld) [Ratio] 0 % 0-5 [facility] Laboratory - Urinalysison Protein Ql (U) Negative [facility] MCHC Auto (RBC) [Mass/Vol]Or dered By: Dr. Polk on 05-23-2022 MCHC (RBC) [Mass/Vol] 33.2 g/dL 32-36 [facility] Platelets bldOrdered By: Dr. Polk on 05-23-2022 Platelets (Bld) [#/Vol] 236 10*3/uL 150-450 [facility] Laboratory - Chemistry and C hemistry - challengeon 05-09-2022 Glucose Ql (U) Negative [facility] Laboratory - Urinalysison Protein Ql (U) Negative [facility] Laboratory - Chemistry and C hemistry - challengeon 04-24-2022 Glucose Ql (U) Negative [facility] Laboratory - Urinalysison Protein Ql (U) Negative [facility] Laboratory - Chemistry and C hemistry - challengeon 04-07-2022 Glucose Ql (U) Negative [facility] Laboratory - Urinalysison Protein Ql (U) Negative [facility] Absolute lymphocyte countOrd ered By: Dr. Polk on 03-21-2022 Lymphocytes Auto (Unsp spec) [#/Vol] 1.68 10*3/uL 0.83-4.51 [facility] Basophil percentageOrdered B y: Dr. Polk on 03-21-2022 Basophils/100 WBC (Bld) 0.2 % 0-1 [facility] Eosinophils/100 WBC (Bld) 0.7 % 0-5 [facility] Neutrophils (Bld) [#/Vol] 7.8 10*3/uL 2.0-7.7 [facility] Neutrophils/100 WBC (Bld) 74.5 % 47-70 [facility] WBC (Bld) [#/Vol] 10.5 10*3/uL 4.4-11.0 [facility] Blood erythrocytes count (nu mber/volume)Ordered By: Dr. Polk on 03-21-2022 RBC (Bld) [#/Vol] 3.35 10*6/uL 4.2-5.4 [facility] Blood hemoglobin measurement (mass/volume)Ordered By: Dr. Polk on 03-21-2022 Hemoglobin (Bld) [Mass/Vol] 10.4 g/dL 12.0-15.0 [facility] Blood lymphocytes/100 leukoc ytesOrdered By: Dr. Polk on 03-21-2022 Lymphocytes/100 WBC (Bld) 16.1 % 19-41 [facility] Blood monocytes/100 leukocyt esOrdered By: Dr. Polk on 03-21-2022 Monocytes/100 WBC (Bld) 8.1 % 0-10 [facility] Blood platelet mean volumeOr dered By: Dr. Polk on 03-21-2022 Platelet mean volume (Bld) [Entitic vol] 10.9 fL 6.2-12.0 [facility] Determination of erythrocyte mean corpuscular volume (MCV)Ordered By: Dr. Polk on 03-21-2022 MCV (RBC) [Entitic vol] 90.4 fL 81-99 [facility] Gestational diabetes screen 1-hour screen with 50g oral glucose loadOrdered By: Dr. Polk on 03-21-2022 Glucose 1 Hr post 50 g glucose PO [Mass/Vol] 92 mg/dL 70-140 [facility] Hematocrit Auto (Bld) [Volum e fraction]Ordered By: Dr. Polk on 03-21-2022 Hematocrit (Bld) [Volume fraction] 30.3 % 37-47 [facility] Laboratory - Chemistry and C hemistry - challengeon 03-21-2022 Glucose Ql (U) Negative [facility] Laboratory - Hematology and Cell countsOrdered By: Dr. Polk on 03-21-2022 Erythrocyte distribution width (RBC) [Entitic vol] 40.5 fL 35.1-43.9 [facility] Erythrocyte distribution width (RBC) [Ratio] 12.4 % 11.6-14.6 [facility] Immature granulocytes/100 WBC (Bld) 0.400 % 0.0-0.9 [facility] Comment on above: IG% - Immature Granu locytes (promyelocytes, myelocytes and metamyelocytes) > 1% indicates that a LEFT SHIFT is Present. MCH (RBC) [Entitic mass] 31.0 pg 27.0-32.0 [facility] Nucleated RBC/100 WBC (Bld) [Ratio] 0 % 0-5 [facility] Laboratory - Urinalysison Protein Ql (U) Negative [facility] MCHC Auto (RBC) [Mass/Vol]Or dered By: Dr. Polk on 03-21-2022 MCHC (RBC) [Mass/Vol] 34.3 g/dL 32-36 [facility] Platelets bldOrdered By: Dr. Polk on 03-21-2022 Platelets (Bld) [#/Vol] 241 10*3/uL 150-450 [facility] Laboratory - Chemistry and C hemistry - challengeon 01-24-2022 Glucose Ql (U) Negative [facility] Work Phone: Laboratory - Urinalysison Protein Ql (U) Negative [facility] Work Phone: No Panel Informationon 01-24 Toxoplasma Comment Comment . [facility] Work Phone: Comment on above: It is presumed the p atient has not been infected with andis not undergoing an acute infection with Toxoplasma. Ifsymptoms persist, submit a new specimen after three weeks. Serum Toxoplasma gondii IgG antibody assay (units/volume)on 01-24-2022 T. gondii IgG Qn (S) < 3.0 IU/mL 0.0-7.1 [facility] Work Phone: Comment on above: Negative <7.2 Equivo олег 7.2 - 8.7 Positive >8.7Performed at: [facility] [employer] [id number] Director: Kwabena Cifuentes PhD, Phone: [phone] Serum Toxoplasma gondii IgM antibody assay by immunoassay (units/volume)on 01-24-2022 T. gondii IgM IA Qn (S) < 3.0 AU/mL 0.0-7.9 [facility] Work Phone: Comment on above: Negative <8.0 Equivo олег 8.0 - 9.9 Positive >9.9 Serum or plasma cytomegalovi rick (CMV) IgG antibody assay (units/volume)on 01-24-2022 CMV IgG Qn < 0.60 U/mL 0.00-0.59 [facility] Work Phone: Comment on above: Negative <0.60 Equiv ocal 0.60 - 0.69 Positive >0.69 Serum or plasma cytomegalovi rick (CMV) IgM antibody assay (units/volume)on 01-24-2022 CMV IgM Qn < 30.0 AU/mL 0.0-29.9 [facility] Work Phone: Comment on above: Negative <30.0 Equiv ocal 30.0 - 34.9 Positive >34.9A positive result is generally indicative of acuteinfection, reactivation or persistent IgM production.Performed at: - [facility] [id number] Director: Kwabena Cifuentes PhD, Phone: [phone] UA DIP, URINE (POC)on 2021 BILIRUBIN UA (POCT) Negative Negative [facility] CLARITY UA (POCT) Clear [facility] COLOR UA (POCT) Yellow [facility] GLUCOSE UA (POCT) Negative Negative mg/dL [facility] HEMOGLOBIN/BLOOD UA (POCT) Negative Negative [facility] KETONE UA (POCT) Negative Negative mg/dL [facility] LEUKOCYTES UA (POCT) Negative Negative [facility] NITRITE UA (POCT) Negative Negative [facility] PH UA (POCT) 6.5 4.5 - 8.0 [facility] Protein Ql (U) Negative Negative mg/dL [facility] SPECIFIC GRAVITY UA (POCT) <=1.005 Abnormal 1.005 - 1.030 [facility] UROBILINOGEN UA (POCT) 0.2 E.U./dL Dianne l E.U./dL [facility] Laboratory - Chemistry and C hemistry - challengeon 12-20-2021 Glucose Ql (U) Negative [facility] Work Phone: Laboratory - Urinalysison Protein Ql (U) Negative [facility] Work Phone: Absolute lymphocyte counton 12-06-2021 Lymphocytes Auto (Unsp spec) [#/Vol] 1.77 10*3/uL 0.83-4.51 [facility] Work Phone: Basophil percentageon 2021 Basophils/100 WBC (Bld) 0.2 % 0-1 [facility] Work Phone: Eosinophils/100 WBC (Bld) 0.8 % 0-5 [facility] Work Phone: Neutrophils (Bld) [#/Vol] 7.4 10*3/uL 2.0-7.7 [facility] Work Phone: Neutrophils/100 WBC (Bld) 74.1 % 47-70 [facility] Work Phone: WBC (Bld) [#/Vol] 10.0 10*3/uL 4.4-11.0 [facility] Work Phone: Blood erythrocytes count (nu mber/volume)on 12-06-2021 RBC (Bld) [#/Vol] 4.26 10*6/uL 4.2-5.4 [facility] Work Phone: Blood hemoglobin measurement (mass/volume)on 12-06-2021 Hemoglobin (Bld) [Mass/Vol] 12.9 g/dL 12.0-15.0 [facility] Work Phone: Blood lymphocytes/100 leukoc yteson 12-06-2021 Lymphocytes/100 WBC (Bld) 17.8 % 19-41 [facility] Work Phone: Blood monocytes/100 leukocyt eson 12-06-2021 Monocytes/100 WBC (Bld) 6.6 % 0-10 [facility] Work Phone: Blood platelet mean volumeon 12-06-2021 Platelet mean volume (Bld) [Entitic vol] 11.3 fL 6.2-12.0 [facility] Work Phone: Determination of erythrocyte mean corpuscular volume (MCV)on 12-06-2021 MCV (RBC) [Entitic vol] 90.1 fL 81-99 [facility] Work Phone: HIV 1 and HIV-2 antibody ass ay with HIV-1 p24 antigen detectionon 12-06-2021 HIV 1+2 Ab+HIV1 p24 Ag IA Ql Non-Reactive Nonreactive [facility] Work Phone: Hematocrit Auto (Bld) [Volum e fraction]on 12-06-2021 Hematocrit (Bld) [Volume fraction] 38.4 % 37-47 [facility] Work Phone: Laboratory - Hematology and Cell countson 12-06-2021 Erythrocyte distribution width (RBC) [Entitic vol] 41.9 fL 35.1-43.9 [facility] Work Phone: Erythrocyte distribution width (RBC) [Ratio] 13.0 % 11.6-14.6 [facility] Work Phone: Immature granulocytes/100 WBC (Bld) 0.500 % 0.0-0.9 [facility] Work Phone: Comment on above: IG% - Immature Granu locytes (promyelocytes, myelocytes and metamyelocytes) > 1% indicates that a LEFT SHIFT is Present. MCH (RBC) [Entitic mass] 30.3 pg 27.0-32.0 [facility] Work Phone: Nucleated RBC/100 WBC (Bld) [Ratio] 0 % 0-5 [facility] Work Phone: MCHC Auto (RBC) [Mass/Vol]on 12-06-2021 MCHC (RBC) [Mass/Vol] 33.6 g/dL 32-36 [facility] Work Phone: No Panel Informationon 12-06 Hepatitis B Surface Antigen Non-Reactive Nonreactive [facility] Work Phone: Hepatitis C Antibody Non-Reactive Nonreactive [facility] Work Phone: Comment on above: Non Reactive: < 0.8 Equivocal: >/= 0.8 to < 1.0 Reactive: >/= 1.0The CDC recommends that a reactive/equivocal HCV antibody result be followed up by the HCV Nucleic Acid Amplificationtest ([id number]) Miscellaneous Test Comment MAILED SPECIMEN [facility] Work Phone: Rubella IgG Antibody Reactive Nonreactive [facility] Work Phone: Comment on above: Antibody Results Int erpretation of Immune Status Non Reactive Presumed Non-Immune Equivocal Equivocal Reactive Presumed Immune Platelets bldon 12-06-2021 Platelets (Bld) [#/Vol] 300 10*3/uL 150-450 [facility] Work Phone: Serum Treponema species anti body detectionon 12-06-2021 Treponema sp Ab Ql (S) Non-Reactive [facility] Work Phone: Chlamydia trachomatis rRNA d etection by probe and target amplification methodon 11-21-2021 C. trachomatis rRNA SINA+probe Ql (Unsp spec) Negative Negative [facility] Work Phone: Laboratory - Drug toxicology on 11-21-2021 Amphetamines Ql (U) Negative <1000 ng/mL [facility] Work Phone: Benzodiazepines Ql (U) Negative < 200 ng/mL [facility] Work Phone: Cannabinoids Screen Ql (U) Negative < 50 ng/mL [facility] Work Phone: Cocaine Ql (U) Negative < 300 ng/mL [facility] Work Phone: Opiates Ql (U) Negative < 300 ng/mL [facility] Work Phone: Laboratory - Microbiology an d Antimicrobial susceptibilityon 11-21-2021 N. gonorrhoeae DNA SINA+probe Ql (Unsp spec) Negative Negative [facility] Work Phone: Comment on above: Performed at: =[address] [id number] Director: Maya Barrett MD, Phone: [phone] No Panel Informationon 11-21 MDMA (Ecstasy) Screen Negative < 500 ng/mL [facility] Work Phone: Urine Barbiturates Screen Negative < 200 ng/mL [facility] Work Phone: Urine Drug Screen Comment [facility] Work Phone: Comment on above: CONFIRMATORY [...] Methadone Screen Negative < 300 ng/mL [facility] Work Phone: Urine phencyclidine (PCP) de tectionon 11-21-2021 Phencyclidine Ql (U) Negative < 25 ng/mL [facility] Work Phone: CBC with differentialon 10-03 BASO # 0.1 K CUMM Normal 0.0-0.2 [facility] Comment on above: Order Comment: Items in this order include: Comprehensive Metabolic Panel, Lipid Panel, Vit D 25 [place] (Total), CBC with differential, , Testing Performed By: [facility] [place] [address] Dr. Kathy Jhaveri, Proof Sorter Performed By: #### C 215, C3763, C47, C8 #### [facility] [address] [place] [address] Rd [address] [place] [address] Basophils/100 WBC (Bld) 0.6 % Normal 0.0-3.0 [facility] Comment on above: Order Comment: Items in this order include: Comprehensive Metabolic Panel, Lipid Panel, Vit D 25 [place] (Total), CBC with differential, , Testing Performed By: [facility] [address] [place] [address]. [place] [address] Dr. Kathy Jhaveri, Proof Sorter Performed By: #### C 215, C3763, C47, C8 #### [facility] [address] [place] [address] Rd [address] [place] [address] EOS # 0.1 K CUMM Normal 0.0-0.4 [facility] Comment on above: Order Comment: Items in this order include: Comprehensive Metabolic Panel, Lipid Panel, Vit D 25 [place] (Total), CBC with differential, , Testing Performed By: [facility] [address] [place] [address]. [place] [address] Dr. Kathy Jhaveri, Proof Sorter Performed By: #### C 215, C3763, C47, C8 #### [facility] [address] [place] [address] Rd [address] [place] [address] Eosinophils/100 WBC (Bld) 0.9 % Normal 0.0-7.0 [facility] Comment on above: Order Comment: Items in this order include: Comprehensive Metabolic Panel, Lipid Panel, Vit D 25 [place] (Total), CBC with differential, , Testing Performed By: [facility] [address] [place] [address]. [place] [id number] Dr. Kathy Jhaveri, Proof Sorter Performed By: #### C 215, C3763, C47, C8 #### [facility], [facility]. [address] [place] [address] [address] [place] [address] Erythrocyte distribution width (RBC) [Ratio] 13.1 % Normal 11.5-15.5 [facility] Comment on above: Order Comment: Items in this order include: Comprehensive Metabolic Panel, Lipid Panel, Vit D 25 [place] (Total), CBC with differential, , Testing Performed By: [facility] [address] [place] [address] Dr. Kathy Jhaveri, Proof Sorter Performed By: #### C 215, [id number], C47, C8 #### [facility], [facility]. [address] [place] [address] [address] [place] [address] Hematocrit (Bld) [Volume fraction] 39.5 % Normal 37.0-47.0 [facility] Comment on above: Order Comment: Items in this order include: Comprehensive Metabolic Panel, Lipid Panel, Vit D 25 OH (Total), CBC with differential, , Testing Performed By: [facility] [address] [place] [address]. [place] [address] Dr. Kathy Jhaveri, Proof Sorter Performed By: #### C 215, [id number], C47, C8 #### [facility], [facility]. [address] [place] [address] [address] [place] [address] Hemoglobin (Bld) [Mass/Vol] 12.6 g/dL Normal 11.5-15.5 [facility] Comment on above: Order Comment: Items in this order include: Comprehensive Metabolic Panel, Lipid Panel, Vit D 25 OH (Total), CBC with differential, , Testing Performed By: [facility] [address] [place] [address]. [place] [address] Dr. Kathy Jhaveri, Proof Sorter Performed By: #### C 215, C3763, C47, C8 #### [facility] [address] [place] [address] [address] [place] [address] ImmGrn # 0.0 K CUMM Normal 0.0-0.3 [facility] Comment on above: Order Comment: Items in this order include: Comprehensive Metabolic Panel, Lipid Panel, Vit D 25 OH (Total), CBC with differential, , Testing Performed By: [facility] [address] [place] [address]. [place] [address] Dr. Kathy Jhaveri, Proof Sorter Performed By: #### C 215, [id number], C47, C8 #### [facility], [facility]. [address] [place] [address] [address] [place] [address] ImmGrn % 0.3 % Normal 0.0-3.0 [facility] Comment on above: Order Comment: Items in this order include: Comprehensive Metabolic Panel, Lipid Panel, Vit D 25 [place] (Total), CBC with differential, , Testing Performed By: [facility] [address] [place] [address]. [place] [address] Dr. Kathy Jhaveri, Proof Sorter Performed By: #### C 215, [id number], C47, C8 #### [facility], [facility]. [address] [place] [address] [address] [place] [address] LYMPH # 2.0 K CUMM Normal 0.7-4.5 [facility] Comment on above: Order Comment: Items in this order include: Comprehensive Metabolic Panel, Lipid Panel, Vit D 25 [place] (Total), CBC with differential, , Testing Performed By: [facility] [address] [place] [address]. [place] [address] Dr. Kathy Jhaveri, Proof Sorter Performed By: #### C 215, [id number], C47, C8 #### [facility], [facility]. [address] [place] [address] [address] [place] [address] Lymphocytes/100 WBC (Bld) 25.7 % Normal 14.0-46.0 [facility] Comment on above: Order Comment: Items in this order include: Comprehensive Metabolic Panel, Lipid Panel, Vit D 25 [place] (Total), CBC with differential, , Testing Performed By: [facility] [address] [place] [address]. [place] [address] Dr. Kathy Jhaveri, Proof Sorter Performed By: #### C 215, C3763, C47, C8 #### [facility] [address] [place] [address] [address] [place] [address] MCH (RBC) [Entitic mass] 29.3 pg Normal 27.0-31.0 [facility] Comment on above: Order Comment: Items in this order include: Comprehensive Metabolic Panel, Lipid Panel, Vit D 25 [place] (Total), CBC with differential, , Testing Performed By: [facility] [address] [place] [address] Dr. Kathy Jhaveri, Proof Sorter Performed By: #### C 215, C3763, C47, C8 #### [facility], [facility]. [address] [place] [address] [address] [place] [address] MCHC (RBC) [Mass/Vol] 31.9 g/dL Low 32.0-36.0 [facility] Comment on above: Order Comment: Items in this order include: Comprehensive Metabolic Panel, Lipid Panel, Vit D 25 [place] (Total), CBC with differential, , Testing Performed By: [facility] [address] [place] [address] [address] Kathy Jhaveri, Proof Sorter Performed By: #### C 215, C3763, C47, C8 #### [facility]. [address] [place] [address] [address] [place] [address] MCV (RBC) [Entitic vol] 91.9 fL Normal 78.0-100.0 [facility] Comment on above: Order Comment: Items in this order include: Comprehensive Metabolic Panel, Lipid Panel, Vit D 25 [place] (Total), CBC with differential, , Testing Performed By: [facility] [address] [place] [address]. [place] [address] Dr. Kathy Jhaveri, Proof Sorter Performed By: #### C 215, C3763, C47, C8 #### [facility] [address] [place] [address] [address] [place] [address] MONO # 0.6 K CUMM Normal 0.1-1.0 [facility] Comment on above: Order Comment: Items in this order include: Comprehensive Metabolic Panel, Lipid Panel, Vit D 25 [place] (Total), CBC with differential, , Testing Performed By: [facility] [address] [place] [address] [address] [address] Kathy Jhaveri, Proof Sorter Performed By: #### C 215, C3763, C47, C8 #### [facility] [address] [place] [address] [address] [place] [address] Monocytes/100 WBC (Bld) 7.7 % Normal 4.0-13.0 [facility] Comment on above: Order Comment: Items in this order include: Comprehensive Metabolic Panel, Lipid Panel, Vit D 25 [place] (Total), CBC with differential, , Testing Performed By: [facility] [address] [place] [address] [address] [address] Kathy Jhaveri, Proof Sorter Performed By: #### C 215, C3763, C47, C8 #### [facility], [facility]. [address] [place] [address] [address] [place] [address] TOMI # 5.0 K CUMM Normal 1.8-7.8 [facility] Comment on above: Order Comment: Items in this order include: Comprehensive Metabolic Panel, Lipid Panel, Vit D 25 OH (Total), CBC with differential, , Testing Performed By: [facility] [address] [place] [address] [address] Kathy Jhaveri, Proof Sorter Performed By: #### C 215, C3763, C47, C8 #### [facility], [facility]. [address] [place] [address] [address] [place] [address] Neutrophils/100 WBC (Bld) 64.8 % Normal 40.0-74.0 [facility] Comment on above: Order Comment: Items in this order include: Comprehensive Metabolic Panel, Lipid Panel, Vit D 25 [place] (Total), CBC with differential, , Testing Performed By: [facility] [place] [address] Dr. Kathy Jhaveri, Proof Sorter Performed By: #### C 215, C3763, C47, C8 #### [facility] [address] [place] [address] Platelet mean volume (Bld) [Entitic vol] 12.4 fL Normal 8.9-12.6 [facility] Comment on above: Order Comment: Items in this order include: Comprehensive Metabolic Panel, Lipid Panel, Vit D 25 [place] (Total), CBC with differential, , Testing Performed By: [facility] [address] [place] [address]. [place] [address] Dr. Kathy Jhaveri, Proof Sorter Performed By: #### C 215, C3763, C47, C8 #### [facility] [address] [place] [address] [place] [address] PLT 292 K CUMM Normal 130-400 [facility] Comment on above: Order Comment: Items in this order include: Comprehensive Metabolic Panel, Lipid Panel, Vit D 25 [place] (Total), CBC with differential, , Testing Performed By: [facility] [address] [place] [address]. [place] [address] Dr. Kathy Jhaveri, Proof Sorter Performed By: #### C 215, C3763, C47, C8 #### [facility] [address] [place] [address] [address] [place] [address] RBC 4.30 M CUMM Normal 3.80-5.10 [facility] Comment on above: Order Comment: Items in this order include: Comprehensive Metabolic Panel, Lipid Panel, Vit D 25 [place] (Total), CBC with differential, , Testing Performed By: [facility] [address] [place] [address]. [place] [address] Dr. Kathy Jhaveri, Proof Sorter Performed By: #### C 215, C3763, C47, C8 #### [facility] [address] [place] [address] WBC 7.8 K CUMM Normal 3.8-10.6 [facility] Comment on above: Order Comment: Items in this order include: Comprehensive Metabolic Panel, Lipid Panel, Vit D 25 [place] (Total), CBC with differential, , Testing Performed By: [facility] [address] [place] [address]. [place] [address] Dr. Kathy Jhaveri, Proof Sorter Performed By: #### C 215, C3763, C47, C8 #### [facility] [address] [place] [address] Rd [address] [place] [address] Comprehensive Metabolic Pane josé manuel 10-25-2020 Albumin [Mass/Vol] 4.9 g/dL Normal 3.5-5.0 [facility] Comment on above: Order Comment: Items in this order include: Comprehensive Metabolic Panel, Lipid Panel, Vit D 25 [place] (Total), CBC with differential, , Testing Performed By: [facility] [address] [place] [address]. [place] [address] Dr. Kathy Jhaveri, Proof Sorter Performed By: #### C 215, C3763, C47, C8 #### [facility] [address] [place] [address] [address] [place] [address] Alk Phos 79 U/L Normal 23-159 [facility] Comment on above: Order Comment: Items in this order include: Comprehensive Metabolic Panel, Lipid Panel, Vit D 25 [place] (Total), CBC with differential, , Testing Performed By: [facility] [address] [place] [address]. [place] [address] Dr. Kathy Jhaveri, Proof Sorter Performed By: #### C 215, C3763, C47, C8 #### [facility] [address] [place] [address] Rd [address] [place] [address] ALT [Catalytic activity/Vol] 18 U/L Normal 0-38 [facility] Comment on above: Order Comment: Items in this order include: Comprehensive Metabolic Panel, Lipid Panel, Vit D 25 [place] (Total), CBC with differential, , Testing Performed By: [facility] [address] [place] [address]. [place] [address] Dr. Kathy Jhaveri, Proof Sorter Performed By: #### C 215, C3763, C47, C8 #### [facility] [address] [facility] [place] [address] AST [Catalytic activity/Vol] 27 U/L Normal 11-43 [facility] Comment on above: Order Comment: Items in this order include: Comprehensive Metabolic Panel, Lipid Panel, Vit D 25 [place] (Total), CBC with differential, , Testing Performed By: [facility] [address] [place] [address] [address] [address] Kathy Jhaveri, Proof Sorter Performed By: #### C 215, C3763, C47, C8 #### [facility], [facility]. [address] [place] [address] [place] [address] Bilirubin [Mass/Vol] 0.9 mg/dL Normal 0.2-1.3 [facility] Comment on above: Order Comment: Items in this order include: Comprehensive Metabolic Panel, Lipid Panel, Vit D 25 [place] (Total), CBC with differential, , Testing Performed By: [facility] [address] [place] [address] [address] [address] Kathy Jhaveri, Proof Sorter Performed By: #### C 215, C3763, C47, C8 #### [facility], [facility]. [address] [place] [address] [place] [address] Calcium [Mass/Vol] 9.9 mg/dL Normal 8.5-10.5 [facility] Comment on above: Order Comment: Items in this order include: Comprehensive Metabolic Panel, Lipid Panel, Vit D 25 [place] (Total), CBC with differential, , Testing Performed By: [facility] [address] [place] [address] [address] [address] Kathy Jhaveri, Proof Sorter Performed By: #### C 215, C3763, C47, C8 #### [facility]. [address] [place] [address] [address] [place] [address] Chloride [Moles/Vol] 100 mmol/L Normal 98-107 [facility] Comment on above: Order Comment: Items in this order include: Comprehensive Metabolic Panel, Lipid Panel, Vit D 25 [place] (Total), CBC with differential, , Testing Performed By: [facility] [address] [place] [address]. [place] [address] Dr. Kathy Jhaveri, Proof Sorter Performed By: #### C 215, C3763, C47, C8 #### [facility], [facility]. [address] [place] [address] [address] [place] [address] CO2 [Moles/Vol] 27.0 mmol/L Normal 21.0-32.0 [facility] Comment on above: Order Comment: Items in this order include: Comprehensive Metabolic Panel, Lipid Panel, Vit D 25 [place] (Total), CBC with differential, , Testing Performed By: [facility] [address] [place] [address] [address] [address] Kathy Jhaveri, Proof Sorter Performed By: #### C 215, C3763, C47, C8 #### [facility]. [address] [place] [address] [address] [place] [address] Creatinine [Mass/Vol] 0.7 mg/dL Normal 0.1-1.2 [facility] Comment on above: Order Comment: Items in this order include: Comprehensive Metabolic Panel, Lipid Panel, Vit D 25 [place] (Total), CBC with differential, , Testing Performed By: [facility] [address] [place] [address] [address] [address] Kathy Jhaveri, Proof Sorter Performed By: #### C 215, C3763, C47, C8 #### [facility], [facility]. [address] [place] [address] [address] [place] [address] GFR 96 mL/min per 1.73 Normal >60 [facility] Comment on above: Order Comment: Items in this order include: Comprehensive Metabolic Panel, Lipid Panel, Vit D 25 [place] (Total), CBC with differential, , Testing Performed By: [facility] [address] [place] [address] [address] [address] Kathy Jhaveri, Proof Sorter Result Comment: The GFR estimate is not adjusted for race. If the patient's race is -K[place], the GFR estimate must be multiplied by a factor of 1.21. Performed By: #### C 215, C3763, C47, C8 #### [facility] [address] [place] [address] Glucose [Mass/Vol] 83 mg/dL Normal 74-100 [facility] Comment on above: Order Comment: Items in this order include: Comprehensive Metabolic Panel, Lipid Panel, Vit D 25 [place] (Total), CBC with differential, , Testing Performed By: [facility] [address] [place] [address]. [place] [address] Dr. Kathy Jhaveri, Proof Sorter Performed By: #### C 215, C3763, C47, C8 #### [facility], [facility]. [address] [place] [address] [place] [address] Potassium [Moles/Vol] 4.4 mmol/L Normal 3.5-5.3 [facility] Comment on above: Order Comment: Items in this order include: Comprehensive Metabolic Panel, Lipid Panel, Vit D 25 [place] (Total), CBC with differential, , Testing Performed By: [facility] [address] [place] [address]. [place] [address] Dr. Kathy Jhaveri, Proof Sorter Performed By: #### C 215, C3763, C47, C8 #### [facility], [facility]. [address] [place] [address] [place] [address] Protein [Mass/Vol] 7.5 g/dL Normal 6.3-8.4 [facility] Comment on above: Order Comment: Items in this order include: Comprehensive Metabolic Panel, Lipid Panel, Vit D 25 [place] (Total), CBC with differential, , Testing Performed By: [facility] [address] [place] [address] Kathy Jhaveri, Proof Sorter Performed By: #### C 215, C3763, C47, C8 #### [facility]. [address] [place] [address] [address] [place] [address] Sodium [Moles/Vol] 138 mmol/L Normal 135-145 [facility] Comment on above: Order Comment: Items in this order include: Comprehensive Metabolic Panel, Lipid Panel, Vit D 25 [place] (Total), CBC with differential, , Testing Performed By: [facility] [address] [place] [address]. [place] [address] Dr. Kathy Jhaveri, Proof Sorter Performed By: #### C 215, C3763, C47, C8 #### [facility] [address] [place] [address] [place] [address] Urea nitrogen [Mass/Vol] 11 mg/dL Normal 6-22 [facility] Comment on above: Order Comment: Items in this order include: Comprehensive Metabolic Panel, Lipid Panel, Vit D 25 [place] (Total), CBC with differential, , Testing Performed By: [facility] [address] [place] [address] [address] Kathy Jhaveri, Proof Sorter Performed By: #### C 215, C3763, C47, C8 #### [facility] [address] [place] [address] [address] [place] [address] Lipid Panelon 10-25-2020 Cholesterol [Mass/Vol] 242 mg/dL High <200 [facility] Comment on above: Performed By: #### C 215, C3763, C47, C8 #### [facility] [address] [place] [address] [address] [place] [address] Cholesterol in HDL [Mass/Vol] 68 mg/dL Normal >50 [facility] Comment on above: Performed By: #### C 215, C3763, C47, C8 #### [facility] [address] [place] [address] [place] [address] Cholesterol in LDL [Mass/Vol] 160 mg/dL High <130 [facility] Comment on above: Performed By: #### C 215, C3763, C47, C8 #### [facility] [address] [place] [address] [place] [address] Cholesterol.total/Chol esterol in HDL [Mass ratio] 3.6 {ratio} Normal <4.0 [facility] Comment on above: Performed By: #### C 215, C3763, C47, C8 #### [facility] [address] [facility] [place] [address] Non-HDL Chol 174 Normal LDL Goal + 30 [facility] Comment on above: Result Comment: LDL and Non-HDL goal dependent upon individual risk Performed By: #### C 215, C3763, C47, C8 #### [facility] [address] [facility] [place] [address] Triglyceride [Mass/Vol] 69 mg/dL Normal <150 [facility] Comment on above: Performed By: #### C 215, C3763, C47, C8 #### [facility] [address] [place] [address] [address] [place] [address] VLDL-Calc 14 mg/dl Normal <30 [facility] Comment on above: Performed By: #### C 215, C3763, C47, C8 #### [facility] [address] [place] [address] [address] [place] [address] Vit D 25 [place] (Total)on 2020 Vit D 25 [place] (Total) 32.7 ng/ml Normal 31.0-100.0 [facility] Comment on above: Order Comment: Items in this order include: Comprehensive Metabolic Panel, Lipid Panel, Vit D 25 [place] (Total), CBC with differential, , Testing Performed By: [facility] [address] [place] [address]. [place] [address] Dr. Kathy Jhaveri, Proof Sorter Result Comment: Defi ciency <10 ng/ml Insufficiency 10-30 ng/ml Sufficiency 31-100 ng/ml Toxicity >100 ng/ml Performed By: #### C 215, C3763, C47, C8 #### [facility] [address] [place] [address] [place] [address] Patient Summaryon 01-10-2020 Patient Summary PATIENT DISCHARGE INSTRUCTIONS If you are having an emergency and are not able to reach your physician, CALL 911 or go to the nearest emergency room and take this document with you. [facility] 01/10/20 11:23 [address] [place]. [address] PATIENT INFORMATION Name: BRIGID BELLA Address: [address] [place] [id number] Age: 34 Years Phone: [phone] : 1985 12:00 MRN: [id number] Sex: Female Race: White Ethnicity: Not Hispan/Lat Admitted From: Clinic or [facility] Medical Service: Obstetric Nurse Unit/Bed: ([place] [facility] [place] 6B04-[place] Admit Date: 01/08/2020 13:46 PCP: Physician, PCP Unknown PHYSICIANS INVOLVED WITH CARE ---- Attending Physicians: Ibeth Gómez MD, Shantel Tafoya Gynecology, Obstetrics Admitting Physician: Ibeth Gómez MD, Shantel Tafoya Gynecology, Obstetrics Primary Care Physician:Physician, PCP Unknown,Family Practice,,, - Consults: Praneeth MONAE, Zahida - Pediatrics FOLLOW-UP APPOINTMENTS: Provider: Specialty: Address: Date: Shantel Gómze MD Gynecology; Obstetrics One Week ALLERGIES: No [...] doses are changed, or new medications (including sdjp-hmi-gtlmnzn products) are added. Ask your doctor if [...] suicide hotline, anytime day or night, at 2-070-632-QYPP. It's easy to sign up for [employer]: 1. Visit [email or web address]/ [employer] 2. Click on [place] for [employer] 3. Verify your identity by entering your [...] your account, you'll be redirected to the [facility] login page. Login and check to see your results Questions? For help with account enrollment, call [facility] Customer Support at [phone] (toll-free) PATIENT EDUCATION Discharge Instructions for Mother [...] cracked, blistered or bleeding, call outpatient at [phone] ([phone]) for help. 5. Care of Perineum following [...] until 12 months or longer. ?? Call [phone] if any questions or concerns with ?? [...] delivery ? Depression ?Jaundice ?Domestic Violence Resources ?[facility] [place] Screening ?[facility] Hearing Development information ?[facility] Safe Sleep Environment Screening ?[place] Hearing Screening Brochure ??A Sound Beginning??. ?Shaken [...] information, talk with your doctor or call [phone] ( ). I have received a copy [...] you go home. HOME CARE INSTRUCTIONS ???Take rysi-ydb-cxpihme or prescription medicines only as directed by [...] Relationship to Patient Clinician Signature Date/Time Normal [facility] Syphilis Screenon 01-09-2020 T. pallidum Ab IA Ql (S) NONREAC Normal NONREAC [facility] Comment on above: Result Comment: No s erologic evidence of syphilis. Performed By: #### 3 9231-6 #### [facility] [address] [place] [address] Antibody Screen Interpretati on (T+S Compon 01-08-2020 Interpretation and review of laboratory results Negative Normal NEGATIVE-NEG ATIVE [facility] Comment on above: Performed By: #### 8 90-4, 882-1x1 #### [facility] REAL, [address] [place], [place]. Blood Typing ABO + Rh(D)on 0 01-08-2020 ABO and Rh group Nom (Bld) ABPOS Normal [facility] Comment on above: Performed By: #### 8 90-4, 882-1x1 #### [facility], [address] [facility] [address], [place]. CBCon 01-08-2020 Erythrocyte distribution width (RBC) [Entitic vol] 12.6 % Normal 11.0-14.8 [facility] Comment on above: Performed By: #### 2 4317-0 #### [facility], [address]. Hematocrit (Bld) [Volume fraction] 35.4 % Normal 35.0-45.0 [facility] Comment on above: Performed By: #### 2 7-0 #### [facility], [address]. Hemoglobin (Bld) [Mass/Vol] 11.9 g/dL Low 12.0-16.0 [facility] Comment on above: Performed By: #### 2 7-0 #### [facility], [facility] [address], [place]. MCH (RBC) [Entitic mass] 30.6 Picograms Normal 27.0-34.0 [facility] Comment on above: Performed By: #### 2 7-0 #### [facility], [facility] [address]. MCHC (RBC) [Mass/Vol] 33.7 g/dL Normal 32.0-36.0 [facility] Comment on above: Performed By: #### 2 4317-0 #### [facility], [address], [place]. MCV (RBC) [Entitic vol] 91.0 fL Normal 80.0-97.0 [facility] Comment on above: Performed By: #### 2 4317-0 #### [facility], [address], [place]. Platelet mean volume (Bld) [Entitic vol] 12.1 fL Normal 6.2-12.1 [facility] Comment on above: Performed By: #### 2 4317-0 #### [facility], [address] [facility] [place], [place]. Platelets (Bld) [#/Vol] 186 thou/mcL Normal 142-424 [facility] Comment on above: Performed By: #### 2 4317-0 #### [facility], [address] [facility] [address] [place], [place]. RBC (Bld) [#/Vol] 3.89 million/mcL Normal 3.80-5.10 [facility] Comment on above: Performed By: #### 2 4317-0 #### [facility], [address] [facility] [address], [place]. WBC (Bld) [#/Vol] 15.3 thou/mcL High 4.6-10.2 [facility] Comment on above: Performed By: #### 2 4317-0 #### [facility], [address] [place] [address]. Hold Clot (Blood Bank)on Other useful information NOTNEED Normal [facility] Comment on above: Performed By: #### 1 1111-6 #### [facility], [facility] [place]. Culture, urine Bacteria identified Cx Nom (U) Positive [facility] Work Phone: Vital Signs Date Time Vital Sign Value Performing Clinician Chuy irizarry 12-01-2024 15:13-040 Body height 165.[address] Yousuf Ortiz MD Work Phone: [facility] 12-01-2024 15:13-0400 Body mass index (BMI) [Ratio] 27.3 kg/m2 Dr. Yousuf Ortiz MD Work Phone: [facility] 12-01-2024 15:13-0400 Body weight 74.[address] Yousuf Ortiz MD Work Phone: [facility] 12-01-2024 15:13-0400 Diastolic blood pressure 69 mm[Hg] Dr. Yousuf Ortiz MD Work Phone: [facility] 12-01-2024 15:13-0400 Systolic blood pressure 108 mm[Hg] Dr. Yousuf Ortiz MD Work Phone: [facility] 11-24-2024 15:55-0400 Body height 165.[address] Yousuf Ortiz MD Work Phone: [facility] 11-24-2024 15:55-0400 Body mass index (BMI) [Ratio] 27.5 kg/m2 Dr. Yousuf Ortiz MD Work Phone: [facility] 11-24-2024 15:55-0400 Body weight 75.[address] Yousuf Ortiz MD Work Phone: [facility] 11-24-2024 15:55-0400 Diastolic blood pressure 84 mm[Hg] Dr. Yousuf Ortiz MD Work Phone: [facility] 11-24-2024 15:55-0400 Systolic blood pressure 123 mm[Hg] Dr. Yousuf Ortiz MD Work Phone: [facility] 11-16-2024 13:49-0400 Body height 165.[address] Yousuf Ortiz MD Work Phone: [facility] 11-16-2024 13:49-0400 Body mass index (BMI) [Ratio] 27.8 kg/m2 Dr. Yousuf Ortiz MD Work Phone: [facility] 11-16-2024 13:49-0400 Body weight 75.[address] Yousuf Ortiz MD Work Phone: [facility] 11-16-2024 13:49-0400 Diastolic blood pressure 73 mm[Hg] Dr. Yousuf Ortiz MD Work Phone: [facility] 11-16-2024 13:49-0400 Systolic blood pressure 113 mm[Hg] Dr. Yousuf Ortiz MD Work Phone: [facility] 11-11-2024 15:41-0400 Body height 165.[address] Yousuf Ortiz MD Work Phone: [facility] 11-11-2024 15:41-0400 Body mass index (BMI) [Ratio] 27.4 kg/m2 Dr. Yousfu Ortiz MD Work Phone: [facility] 11-11-2024 15:41-0400 Body weight 74.[address] Yousuf Ortiz MD Work Phone: [facility] 11-11-2024 15:41-0400 Diastolic blood pressure 78 mm[Hg] Dr. Yousuf Ortiz MD Work Phone: [facility] 11-11-2024 15:41-0400 Systolic blood pressure 120 mm[Hg] Dr. Yousuf Ortiz MD Work Phone: [facility] 10-28-2024 13:55-0400 Body height 165.[address] Yousuf Ortiz MD Work Phone: [facility] 10-28-2024 13:55-0400 Body mass index (BMI) [Ratio] 27.4 kg/m2 Dr. Yousuf Ortiz MD Work Phone: [facility] 10-28-2024 13:55-0400 Body weight 74.[address] Yousuf Ortiz MD Work Phone: [facility] 10-28-2024 13:55-0400 Diastolic blood pressure 69 mm[Hg] Dr. Yousuf Ortiz MD Work Phone: [facility] 10-28-2024 13:55-0400 Systolic blood pressure 111 mm[Hg] Dr. Yousuf Ortiz MD Work Phone: [facility] 10-12-2024 08:52-0400 Body height 165.[address] Yousuf Ortiz MD Work Phone: [facility] 10-12-2024 08:52-0400 Body mass index (BMI) [Ratio] 27.1 kg/m2 Dr. Yousuf Ortiz MD Work Phone: [facility] 10-12-2024 08:52-0400 Body weight 74.[address] Yousuf Ortiz MD Work Phone: [facility] 10-12-2024 08:52-0400 Diastolic blood pressure 62 mm[Hg] Dr. Yousuf Ortiz MD Work Phone: [facility] 10-12-2024 08:52-0400 Systolic blood pressure 103 mm[Hg] Dr. Yousuf Ortiz MD Work Phone: [facility] 09-29-2024 15:15-0400 Body height 165.[address] Yousuf Ortiz MD Work Phone: [facility] 09-29-2024 15:15-0400 Body mass index (BMI) [Ratio] 27.3 kg/m2 Dr. Yousuf Ortiz MD Work Phone: [facility] 09-29-2024 15:15-0400 Body weight 74.[address] Yousuf Ortiz MD Work Phone: [facility] 09-29-2024 15:15-0400 Diastolic blood pressure 74 mm[Hg] Dr. Yousuf Ortiz MD Work Phone: [facility] 09-29-2024 15:15-0400 Systolic blood pressure 107 mm[Hg] Dr. Yousuf Ortiz MD Work Phone: [facility] 08-31-2024 09:09-0400 Body mass index (BMI) [Ratio] 26 kg/m2 Dr. Yousuf Ortiz MD Work Phone: [facility] 08-31-2024 09:09-0400 Body weight 70.[address] Yousuf Ortiz MD Work Phone: [facility] 08-31-2024 09:09-0400 Diastolic blood pressure 71 mm[Hg] Dr. Yousuf Ortiz MD Work Phone: [facility] 08-31-2024 09:09-0400 Systolic blood pressure 107 mm[Hg] Dr. Yousuf Ortiz MD Work Phone: [facility] 08-03-2024 08:30-0400 Body mass index (BMI) [Ratio] 25.2 kg/m2 Dr. Yousuf Ortiz MD Work Phone: [facility] 08-03-2024 08:30-0400 Body weight 68.[address] Yousuf Ortiz MD Work Phone: [facility] 08-03-2024 08:30-0400 Diastolic blood pressure 64 mm[Hg] Dr. Yousuf Ortiz MD Work Phone: [facility] 08-03-2024 08:30-0400 Systolic blood pressure 102 mm[Hg] Dr. Yousuf Ortiz MD Work Phone: [facility] 07-05-2024 15:40-0500 Body mass index (BMI) [Ratio] 24.3 kg/m2 Dr. Yousuf Ortiz MD Work Phone: [facility] 07-05-2024 15:40-0500 Body weight 66.[address] Yousuf Ortiz MD Work Phone: [facility] 07-05-2024 15:40-0500 Diastolic blood pressure 68 mm[Hg] Dr. Yousuf Ortiz MD Work Phone: [facility] 07-05-2024 15:40-0500 Systolic blood pressure 101 mm[Hg] Dr. Yousuf Ortiz MD Work Phone: [facility] 06-03-2024 11:26-0500 Body mass index (BMI) [Ratio] 23.6 kg/m2 Dr. Yousuf Ortiz MD Work Phone: [facility] 06-03-2024 11:26-0500 Body weight 64.[address] Yousuf Ortiz MD Work Phone: [facility] 06-03-2024 11:26-0500 Diastolic blood pressure 76 mm[Hg] Dr. Yousuf Ortiz MD Work Phone: [facility] 06-03-2024 11:26-0500 Systolic blood pressure 113 mm[Hg] Dr. Yousuf Ortiz MD Work Phone: [facility] 08-23-2023 09:58-0400 Body temperature 97.2 [degF] Tita Houser MEDICAL PRACTICE MANAGER.CALL PERSON Work Phone: [facility] 08-23-2023 09:58-0400 Body weight 61 kg Tita Houser MEDICAL PRACTICE MANAGER.CALL PERSON Work Phone: [facility] 08-23-2023 09:58-0400 Diastolic blood pressure 65 mm[Hg] Tita Houser MEDICAL PRACTICE MANAGER.CALL PERSON Work Phone: [facility] 08-23-2023 09:58-0400 Heart rate 64 /min Tita Houser MEDICAL PRACTICE MANAGER.CALL PERSON Work Phone: [facility] 08-23-2023 09:58-0400 Respiratory rate 18 /min Tita Houser MEDICAL PRACTICE MANAGER.CALL PERSON Work Phone: [facility] 08-23-2023 09:58-0400 SaO2% (BldA) [Mass fraction] 100 % Tita Houser MEDICAL PRACTICE MANAGER.CALL PERSON Work Phone: [facility] 08-23-2023 09:58-0400 Systolic blood pressure 100 mm[Hg] Tita Houser MEDICAL PRACTICE MANAGER.CALL PERSON Work Phone: [facility] 12-26-2022 08:34-0400 Body height 162.6 cm Jairo Romero MD Work Phone: [facility] 12-26-2022 08:34-0400 Body weight 62.14 kg Jairo Romero MD Work Phone: [facility] 12-26-2022 08:34-0400 Diastolic blood pressure 60 mm[Hg] Jairo Romero MD Work Phone: [facility] 12-26-2022 08:34-0400 Heart rate 58 /min Jairo Romero MD Work Phone: [facility] 12-26-2022 08:34-0400 Respiratory rate 16 /min Jairo Romero MD Work Phone: [facility] 12-26-2022 08:34-0400 SaO2% (BldA) [Mass fraction] 99 % Jairo Romero MD Work Phone: [facility] 12-26-2022 08:34-0400 Systolic blood pressure 90 mm[Hg] Jairo Romero MD Work Phone: [facility] 06-18-2022 09:20-0500 Body temperature 98.3 [degF] No Primary Care Physician [facility] 06-18-2022 09:20-0500 Diastolic blood pressure 57 mm[Hg] No Primary Care Physician [facility] 06-18-2022 09:20-0500 Heart rate 68 /min No Primary Care Physician [facility] 06-18-2022 09:20-0500 Respiratory rate 16 /min No Primary Care Physician [facility] 06-18-2022 09:20-0500 Systolic blood pressure 100 mm[Hg] No Primary Care Physician [facility] 06-17-2022 00:39-0500 Body height 165.1 cm No Primary Care Physician [facility] 06-17-2022 00:39-0500 Body mass index (BMI) [Ratio] 28.6 kg/m2 No Primary Care Physician [facility] 06-17-2022 00:39-0500 Body weight 78.1 kg No Primary Care Physician [facility] 06-13-2022 09:08-0500 Body mass index (BMI) [Ratio] 28.6 kg/m2 No Primary Care Physician [facility] 06-13-2022 09:08-0500 Body weight 78.13 kg No Primary Care Physician [facility] 06-13-2022 09:08-0500 Diastolic blood pressure 73 mm[Hg] No Primary Care Physician [facility] 06-13-2022 09:08-0500 Systolic blood pressure 109 mm[Hg] No Primary Care Physician [facility] 06-06-2022 13:12-0500 Body mass index (BMI) [Ratio] 28.4 kg/m2 No Primary Care Physician [facility] 06-06-2022 13:12-0500 Body weight 77.56 kg No Primary Care Physician [facility] 06-06-2022 13:12-0500 Diastolic blood pressure 80 mm[Hg] No Primary Care Physician [facility] 06-06-2022 13:12-0500 Systolic blood pressure 104 mm[Hg] No Primary Care Physician [facility] 05-30-2022 11:42-0500 Body mass index (BMI) [Ratio] 28.5 kg/m2 No Primary Care Physician [facility] 05-30-2022 11:42-0500 Body weight 77.62 kg No Primary Care Physician [facility] 05-30-2022 11:42-0500 Diastolic blood pressure 64 mm[Hg] No Primary Care Physician [facility] 05-30-2022 11:42-0500 Systolic blood pressure 112 mm[Hg] No Primary Care Physician [facility] 05-23-2022 09:57-0500 Body mass index (BMI) [Ratio] 28.1 kg/m2 No Primary Care Physician [facility] 05-23-2022 09:57-0500 Body weight 76.77 kg No Primary Care Physician [facility] 05-23-2022 09:57-0500 Diastolic blood pressure 74 mm[Hg] No Primary Care Physician [facility] 05-23-2022 09:57-0500 Systolic blood pressure 126 mm[Hg] No Primary Care Physician [facility] 05-09-2022 11:47-0500 Body mass index (BMI) [Ratio] 28 kg/m2 No Primary Care Physician [facility] 05-09-2022 11:47-0500 Body weight 76.37 kg No Primary Care Physician [facility] 05-09-2022 11:47-0500 Diastolic blood pressure 71 mm[Hg] No Primary Care Physician [facility] 05-09-2022 11:47-0500 Systolic blood pressure 103 mm[Hg] No Primary Care Physician [facility] 04-24-2022 12:38-0500 Body mass index (BMI) [Ratio] 27.1 kg/m2 No Primary Care Physician [facility] 04-24-2022 12:38-0500 Body weight 74.16 kg No Primary Care Physician [facility] 04-24-2022 12:38-0500 Diastolic blood pressure 74 mm[Hg] No Primary Care Physician [facility] 04-24-2022 12:38-0500 Systolic blood pressure 113 mm[Hg] No Primary Care Physician [facility] 04-07-2022 15:25-0500 Body mass index (BMI) [Ratio] 26.8 kg/m2 No Primary Care Physician [facility] 04-07-2022 15:25-0500 Body weight 73.19 kg No Primary Care Physician [facility] 04-07-2022 15:25-0500 Diastolic blood pressure 64 mm[Hg] No Primary Care Physician [facility] 04-07-2022 15:25-0500 Systolic blood pressure 98 mm[Hg] No Primary Care Physician [facility] 03-21-2022 11:55-0500 Body mass index (BMI) [Ratio] 26.4 kg/m2 No Primary Care Physician [facility] 03-21-2022 11:55-0500 Body weight 71.89 kg No Primary Care Physician [facility] 03-21-2022 11:55-0500 Diastolic blood pressure 56 mm[Hg] No Primary Care Physician [facility] 03-21-2022 11:55-0500 Systolic blood pressure 94 mm[Hg] No Primary Care Physician [facility] 02-21-2022 11:24-0400 Body mass index (BMI) [Ratio] 25 kg/m2 No Primary Care Physician [facility] 02-21-2022 11:24-0400 Body weight 68.2 kg No Primary Care Physician [facility] 02-21-2022 11:24-0400 Diastolic blood pressure 72 mm[Hg] No Primary Care Physician [facility] 02-21-2022 11:24-0400 Systolic blood pressure 109 mm[Hg] No Primary Care Physician [facility] 01-24-2022 11:30-0400 Body height 165.1 cm No Primary Care Physician [facility] Work Phone: 01-24-2022 11:28-0400 Body mass index (BMI) [Ratio] 24.3 kg/m2 No Primary Care Physician [facility] Work Phone: 01-24-2022 11:28-0400 Body weight 66.22 kg No Primary Care Physician [facility] Work Phone: 01-24-2022 11:28-0400 Diastolic blood pressure 74 mm[Hg] No Primary Care Physician [facility] Work Phone: 01-24-2022 11:28-0400 Systolic blood pressure 117 mm[Hg] No Primary Care Physician [facility] Work Phone: 12-24-2021 11:49-0400 Body temperature 99 [degF] Tita Houser MEDICAL PRACTICE MANAGER.CALL PERSON Work Phone: [facility] 12-24-2021 11:49-0400 Body weight 61.24 kg Tita Houser MEDICAL PRACTICE MANAGER.CALL PERSON Work Phone: [facility] 12-24-2021 11:49-0400 Diastolic blood pressure 64 mm[Hg] Tita Houser MEDICAL PRACTICE MANAGER.CALL PERSON Work Phone: [facility] 12-24-2021 11:49-0400 Heart rate 84 /min Tita Houser MEDICAL PRACTICE MANAGER.CALL PERSON Work Phone: [facility] 12-24-2021 11:49-0400 Respiratory rate 16 /min Tita Houser MEDICAL PRACTICE MANAGER.CALL PERSON Work Phone: [facility] 12-24-2021 11:49-0400 SaO2% (BldA) [Mass fraction] 99 % Tita Houser MEDICAL PRACTICE MANAGER.CALL PERSON Work Phone: [facility] 12-24-2021 11:49-0400 Systolic blood pressure 110 mm[Hg] Tita Houser MEDICAL PRACTICE MANAGER.CALL PERSON Work Phone: [facility] 12-20-2021 11:52-0400 Body mass index (BMI) [Ratio] 22.5 kg/m2 No Primary Care Physician [facility] Work Phone: 12-20-2021 11:52-0400 Body weight 61.46 kg No Primary Care Physician [facility] Work Phone: 12-20-2021 11:52-0400 Diastolic blood pressure 62 mm[Hg] No Primary Care Physician [facility] Work Phone: 12-20-2021 11:52-0400 Systolic blood pressure 100 mm[Hg] No Primary Care Physician [facility] Work Phone: 11-21-2021 15:03-0400 Body height 165.[address] Sheyla Small Work Phone: [facility] Work Phone: 11-21-2021 15:03-0400 Body mass index (BMI) [Ratio] 22 kg/m2 Dr. Sheyla Small Work Phone: [facility] Work Phone: 11-21-2021 15:03-0400 Body weight 59.[address] Sheyla Small Work Phone: [facility] Work Phone: 11-21-2021 15:03-0400 Diastolic blood pressure 60 mm[Hg] Dr. Sheyla Small Work Phone: [facility] Work Phone: 11-21-2021 15:03-0400 Systolic blood pressure 100 mm[Hg] Dr. Sheyla Small Work Phone: [facility] Work Phone: Encounters Encounter Date Encounter Type Care Provider Facility Start: 12-05-2024 ambulatory Yousuf Ortiz Facility :[facility] Start: 12-01-2024 ambulatory Radha Valverde Facility :[facility] Start: 12-01-2024 End: 12-01-2024 Patient encounter procedure Radha Valverde [facility] -[facility] Work Phone: Start: 12-01-2024 End: 12-01-[address] Yousuf Ortiz MD Work Phone: -[facility] Start: 11-24-2024 End: 11-24-2024 Patient encounter procedure Radha Valverde CNM -[facility] Work Phone: Start: 11-24-2024 End: 11-24-[address] Yousuf Ortiz MD Work Phone: -[facility] Start: 11-22-2024 End: 11-22-[address] Yousuf Ortiz MD Work Phone: -[facility]ound [facility] Start: 11-22-2024 End: 11-22-[address] Linda Mcconnell MD -[facility] Work Phone: Start: 11-22-2024 End: 11-22-2024 ambulatory Linda Mcconnell Facility:[facility] Start: 11-16-2024 End: 11-16-[address] Linda Mcconnell MD -[facility] Work Phone: Start: 11-16-2024 End: 11-16-[address] Yousuf Ortiz MD Work Phone: [facility] Start: 11-14-2024 End: 11-14-[address] Yousuf Ortiz MD Work Phone: -Ultrasound [facility] Start: 11-14-2024 End: 11-14-2024 Patient encounter procedure Radha Valverde CNM -[facility] Work Phone: Start: 11-14-2024 End: 11-14-2024 ambulatory Radha Valverde Facility:[facility] Start: 11-11-2024 End: 11-11-2024 Patient encounter procedure Radha Valverde CNM -[facility] Work Phone: Start: 11-11-2024 End: 11-11-[address] Yousuf Ortiz MD Work Phone: [facility] Start: 11-11-2024 End: 11-11-2024 ambulatory Radha Valverde Facility:[facility] Start: 11-02-2024 End: 11-02-[address] Yousuf Ortiz MD Work Phone: [facility]ound [facility] Start: 11-02-2024 End: 11-02-[address] Sheyla Small DO [facility] Work Phone: Start: 11-02-2024 End: 11-02-2024 ambulatory Sheyla Small Facility:[facility] Start: 10-28-2024 End: 10-28-[address] Sheyla Small DO -[facility] Work Phone: Start: 10-28-2024 End: 10-28-[address] Yousuf Ortiz MD Work Phone: [facility] Start: 10-12-2024 End: 10-12-[address] Sheyla Small DO -[facility] Work Phone: Start: 10-12-2024 End: 10-12-[address] Yousuf Ortiz MD Work Phone: [facility] Work Phone: Start: 09-29-2024 End: 09-29-2024 Patient encounter procedure Radha LEE -[facility] Work Phone: Start: 09-29-2024 End: 09-29-[address] Yousuf Ortiz MD Work Phone: [facility] Work Phone: Start: 08-31-2024 End: 08-31-[address] Linda Mcconnell MD -[facility] Work Phone: Start: 08-31-2024 End: 08-31-2024 ambulatory Linda Mcconnell Facility:[facility] Start: 08-31-2024 End: 08-31-2024 ambulatory Linda Heididona Facility:[facility] Start: 08-03-2024 End: 08-03-2024 Patient encounter procedure Micaela Peterson [employer] -[facility] Work Phone: Start: 08-03-2024 End: 08-03-2024 ambulatory Micaela Peterson Facility:[facility] Start: 07-28-2024 End: 07-28-2024 ambulatory KOBE Greco CABAN [facility] Start: 07-05-2024 End: 07-05-[address] Sheyla Small DO -[facility] Work Phone: Start: 07-05-2024 End: 07-05-2024 ambulatory Sheyla Small Facility:[facility] Start: 06-03-2024 End: 06-03-2024 Patient encounter procedure Trish Murray CNM -Laboratory Work Phone: Start: 06-03-2024 End: 06-03-2024 Patient encounter procedure Trish Murray CNM -[facility] Work Phone: Start: 06-03-2024 End: 06-03-2024 ambulatory Yousuf Angel Facility:[facility] Start: 06-03-2024 End: 06-03-2024 ambulatory Yousuf Angel Facility:[facility] Start: 03-09-2024 End: 03-09-2024 ambulatory Yousuf Rienzi Facility:[facility] Start: 02-24-2024 End: 02-24-2024 ambulatory Yousuf Angel Facility:[facility] Start: 02-24-2024 End: 02-24-2024 ambulatory Yousuf Rienzi Facility:[facility] Start: 08-23-2023 End: 08-23-2023 ambulatory JAIRO ROMERO Facility:[facility] Start: 08-23-2023 End: 08-23-2023 Patient encounter procedure Tita Houser APRN.CALL PERSON Work Phone: [facility] Comment on above: Conjunctivitis of ri ght eye, unspecified conjunctivitis type (Primary Dx); URI, acute Start: 06-29-2023 Telephone encounter Faraz Romero MD Work Phone: [facility] Comment on above: Results Start: 06-19-2023 End: 06-20-2023 ambulatory JAIRO ROMERO Facility:[facility] Start: 06-19-2023 Patient encounter procedure JAIRO ROMERO [facility] Start: 03-20-2023 End: 03-21-2023 ambulatory JAIRO ROMERO Facility:[facility] Start: 03-13-2023 End: 03-14-2023 ambulatory GAL Lit ROMERO Facility:[facility] Start: 12-26-2022 End: 12-26-2022 ambulatory JAIRO ROMERO Facility:[facility] Start: 12-26-2022 End: 12-26-2022 Patient encounter procedure Jairo Romero MD Work Phone: [facility] Comment on above: Melasma (Primary Dx) ; Encounter to establish care; Depression screening Start: 06-18-2022 Non-patient / Non-visit No Azra prince Care Physician [facility] Start: 06-17-2022 Non-patient / Non-visit No [facility] Care Physician [facility] Start: 06-17-2022 End: 06-18-2022 Evaluation and management of inpatient No Primary Care Physician [facility] Start: 06-13-2022 End: 06-13-2022 Patient encounter procedure No Primary Care Physician [facility] Start: 06-06-2022 End: 06-06-2022 Patient encounter procedure No Primary Care Physician [facility] Start: 05-30-2022 End: 05-30-2022 Patient encounter procedure No Primary Care Physician [facility] Start: 05-23-2022 End: 05-23-2022 Patient encounter procedure No Primary Care Physician [facility] Start: 05-23-2022 End: 05-23-2022 Patient encounter procedure No Primary Care Physician [facility] Start: 05-09-2022 End: 05-09-2022 Patient encounter procedure No Primary Care Physician [facility] Start: 04-24-2022 End: 04-24-2022 Patient encounter procedure No Primary Care Physician [facility] Start: 04-07-2022 End: 04-07-2022 Patient encounter procedure No Primary Care Physician [facility] Start: 03-21-2022 End: 03-21-2022 Patient encounter procedure No Primary Care Physician [facility] Start: 02-21-2022 End: 02-21-2022 Patient encounter procedure No Primary Care Physician [facility] Start: 01-24-2022 End: 01-24-2022 ambulatory No Primary Care Physician [facility] Work Phone: Start: 01-24-2022 End: 01-24-2022 Patient encounter procedure No Primary Care Physician [facility] Start: 12-24-2021 End: 12-24-2021 Patient encounter procedure Tita Houser APRN.CNP Work Phone: [facility] Comment on above: Headache, unspecifie d headache type (Primary Dx); Viral illness Start: 12-20-2021 End: 12-20-2021 Patient encounter procedure No Primary Care Physician [facility] Start: 12-06-2021 End: 12-06-[address] Sheyla Small Work Phone: [facility] Start: 11-21-2021 End: 11-21-[address] Sheyla Small Work Phone: [facility]Labor[facility], Specimen Start: 11-21-2021 End: 11-21-[address] Sheyla Small Work Phone: [facility] Start: 12-24-2020 End: 12-24-2020 ambulatory KATHY RIVERA [facility] Start: 12-24-2020 End: 12-24-2020 Office outpatient new 45 minutes Kathy Rivera MD Work Phone: [facility] Comment on above: Melasma (Primary Dx) ; Dermal nevus of left cheek; Osborne angioma Start: 10-26-2020 End: 10-26-2020 Transcribe Orders Maira Lai [facility] Comment on above: Melasma [...] et rgnt auto w/o microscopy Tita Houser MEDICAL PRACTICE MANAGER.CALL PERSON Work Phone: [facility] Streptococcu s Culture No Primary Care Physician Urine culture Dr. Sheyla Polk Work Phone: Plan of Treatment Date Care Activity Detail Author Start: 04-07-2032 Urine microalbumin profile [facility] Start: 11-09-2029 Tetanus vaccination Tetanus: Every 1 0yrs [facility] Start: 11-22-2024 Ultrasonography for antepartum monitoring of fetus [facility] Start: 03-20-2024 Covid-19 Vaccine () Covid-19 Vaccine () [facility] Comment on above: Postponed from 01/02 (Declined at this time) Start: 03-20-2024 HIV screening HIV Screening [facility] Comment on above: Postponed from 04/26 (Declined at this time) Start: 03-20-2024 Screening for malign ant neoplasm of cervix [facility] Comment on above: Postponed from 04/26 (Declined at this time) Postponed from 04/26 (Declined at this time) Start: 12-27-2023 COVID-19 VACCINE (3 - Booster for Roxana series) COVID-19 VACCINE (3 - Booster for Roxana series) [facility] Comment on above: Postponed from 05/16 (Declined at this time) Start: 05-04-2023 Behavioral Health Screening Behavioral Health Screening [facility] Start: 05-04-2023 Depression Assessment Depression Ass essment [facility] Start: 02-25-2023 End: 04-27-2023 CBC W Auto Differential panel - Blood CBC + DIFF Lab Routine Encounter to establish care Expected: 02/25/2023, Expires: 04/27/2023 [facility] Work Phone: Comment on above: Expected: 02/25/2023 , Expires: 04/27/2023 Start: 02-25-2023 End: 04-27-2023 Comprehensive metabolic 2000 panel - Serum or Plasma COMP METABOLIC PANEL Lab Routine Encounter to establish care Expected: 02/25/2023, Expires: 04/27/2023 [facility] Work Phone: Comment on above: Expected: 02/25/2023 , Expires: 04/27/2023 Start: 02-25-2023 End: 04-27-2023 Lipid 1996 panel - Serum or Plasma LIPID PANEL BASIC Lab Routine Encounter to establish care Expected: 02/25/2023, Expires: 04/27/2023 [facility] Work Phone: Comment on above: Expected: 02/25/2023 , Expires: 04/27/2023 Start: 01-02-2023 Influenza vaccination INFLUENZA (#1) [facility] Start: 06-18-2022 Patient discharge [facility] Start: 06-17-2022 Administration of medication [facility] Start: 06-17-2022 Application of ice c ollar, cap or bag [facility] Start: 06-17-2022 Catheterization of vein [facility] Start: 06-17-2022 Introduction of urin oniel catheter [facility] Start: 06-17-2022 Measuring intake and output [facility] Start: 06-17-2022 Notification of physician [facility] Start: 06-17-2022 Procedure discontinued [facility] Start: 06-17-2022 Provision of activit y privileges [facility] Start: 06-17-2022 Vital signs measurements [facility] Start: 06-17-2022 [facility] Start: 06-17-2022 Admission procedure [facility] Start: 06-17-2022 Verification routine [facility] Start: 01-02-2022 Influenza vaccination INFLUENZA (#1) [facility] Start: 12-24-2021 End: 01-07-2022 Influenza virus A and B RNA and SARS-CoV-2 (COVID-19) N gene panel - Respiratory specimen by SINA with probe detection [facility] Work Phone: Comment on above: Expected: 12/24/2021 , Expires: 01/07/2022 Start: 01-02-2021 Influenza vaccination Sequenti al Influenza Vaccine (#1) [facility] Start: 2016 HPV TESTING HPV TESTING [facility] Start: 2007 PAP TESTING PAP TESTING [facility] Start: 2004 Hepatitis C screening Hepatitis C [facility] Start: 2004 HEPATITIS C SCREENING HEPATITIS C [facility] Start: 2004 HIV SCREENING HIV SCREENING [facility] Start: 07-06-2002 Urine microalbumin profile DTA P,TDAP,TD (6 - Tdap) [facility] Start: 2001 HIV screening HIV Screening [facility] Start: 1998 Depression screening using PHQ-9 (Patient Health Questionnaire 9) score [facility] Start: 1989 History and physical examination, annual for health maintenance Wellness Visit [facility] Start: 1986 COVID-19 VACCINE (#1) COVID-19 VACCI NE (#1) [facility] Start: 1986 Screening for malign ant neoplasm of cervix Pap Smear [facility] Biophysical pr ofile panel US [facility] Patient referral [facility] Work Phone: Streptococcus agalac tiae [Presence] in Unspecified specimen by Organism specific culture [facility] Ultrasonography for antepartum monitoring of fetus [facility] Ultrasonography for antepartum monitoring of fetus [facility] Ultrasonography for antepartum monitoring of fetus [facility] Ultrasound scan for growth [facility] Ultrasound scan for growth [facility] Immunizations Immunization Date Immunization Notes Care Provider Fa cility 09-29-2024 tetanus toxoid, redu faisal diphtheria toxoid, and acellular pertussis vaccine, adsorbed Dr. Yousuf Ortiz MD Work Phone: [facility] 02-24-2024 influenza, injectabl e, madin pilar canine kidney, preservative free Dr. Yousuf Ortiz MD Work Phone: [facility] 03-20-2023 influenza, injectabl e, quadrivalent, contains preservative Jairo Romero MD Work Phone: [facility] 03-20-2023 influenza, injectabl e, quadrivalent, preservative free Dr. Yousuf Ortiz MD Work Phone: [facility] 04-07-2022 tetanus toxoid, redu faisal diphtheria toxoid, and acellular pertussis vaccine, adsorbed No Primary Care Physician [facility] 02-21-2022 influenza, injectabl e, quadrivalent, preservative free Dr. Yousuf Ortiz MD Work Phone: [facility] 02-21-2022 influenza, seasonal, injectable No Primary Care Physician [facility] 03-21-2021 Covid (Moderna) Dr. Yousuf randall MD Work Phone: [facility] 08-02-2020 Covid (Diogo & Diogo) Dr. Yousuf Ortiz MD Work Phone: [facility] 03-20-2020 influenza, injectabl e, quadrivalent, preservative free Jairo Romero MD Work Phone: [facility] 11-10-2019 tetanus toxoid, redu faisal diphtheria toxoid, and acellular pertussis vaccine, adsorbed Jairo Romero MD Work Phone: [facility] 05-27-2019 Influenza, injectabl e, Madin Soso Canine Kidney, preservative free, quadrivalent Jairo Romero MD Work Phone: [facility] 07-10-2014 tetanus toxoid, redu faisal diphtheria toxoid, and acellular pertussis vaccine, adsorbed Jairo Romero MD Work Phone: [facility] 05-30-2005 hepatitis A vaccine, pediatric/adolescent dosage, [address] Yousuf Ortiz MD Work Phone: [facility] 05-30-2005 hepatitis A vaccine, unspecified formulation Tita Houser APRN.CNP Work Phone: [facility] Work Phone: 12-06-2004 meningococcal polysaccharide vaccine (MPSV4) Dr. Yousuf Ortiz MD Work Phone: [facility] 12-06-2004 Meningococcal, MCV4, unspecified conjugate formulation(groups A, C, Y and W-135) Tita Houser MEDICAL PRACTICE MANAGER.CALL PERSON Work Phone: [facility] 07-05-2002 TD(adult) unspecifie d formulation Jairo Romero MD Work Phone: [facility] 07-05-2002 tetanus and diphther ia toxoids, adsorbed, preservative free, for adult use (2 Lf of tetanus toxoid and 2 Lf of diphtheria toxoid) Tita Houser MEDICAL PRACTICE MANAGER.CALL PERSON Work Phone: [facility] 05-04-2000 hepatitis A vaccine, adult dosage Jairo Romero MD Work Phone: [facility] 05-04-2000 tetanus toxoid, adsorbed Jairo Romero MD Work Phone: [facility] 04-29-1999 hepatitis B vaccine, pediatric or pediatric/adolescent dosage Tita Houser MEDICAL PRACTICE MANAGER.CALL PERSON Work Phone: [facility] 11-28-1998 hepatitis B vaccine, pediatric or pediatric/adolescent dosage Tita Houser MEDICAL PRACTICE MANAGER.CALL PERSON Work Phone: [facility] 10-03-1998 hepatitis B vaccine, pediatric or pediatric/adolescent dosage Tita Houser MEDICAL PRACTICE MANAGER.CALL PERSON Work Phone: [facility] 10-03-1998 measles, mumps and rubella virus vaccine Tita Houser MEDICAL PRACTICE MANAGER.CALL PERSON Work Phone: [facility] 09-28-1991 diphtheria, tetanus toxoids and acellular pertussis vaccine Dr. Yousuf Ortiz MD Work Phone: [facility] 09-28-1991 diphtheria, tetanus toxoids and pertussis vaccine Tita Houser MEDICAL PRACTICE MANAGER.CALL PERSON Work Phone: [facility] 09-28-1991 trivalent poliovirus vaccine, live, oral Tita Houser MEDICAL PRACTICE MANAGER.CALL PERSON Work Phone: [facility] 05-01-1988 diphtheria, tetanus toxoids and acellular pertussis vaccine Dr. Yousuf Ortiz MD Work Phone: [facility] 05-01-1988 diphtheria, tetanus toxoids and pertussis vaccine Tita Houser MEDICAL PRACTICE MANAGER.CALL PERSON Work Phone: [facility] 05-01-1988 trivalent poliovirus vaccine, live, oral Tita Houser MEDICAL PRACTICE MANAGER.CALL PERSON Work Phone: [facility] 12-21-1987 haemophilus influenz ae type b vaccine, PRP-D conjugate Tita Houser MEDICAL PRACTICE MANAGER.CALL PERSON Work Phone: [facility] 12-21-1987 haemophilus influenz ae type b vaccine, PRP-T conjugate Dr. Yousuf Ortiz MD Work Phone: [facility] 09-14-1987 measles, mumps and rubella virus vaccine Tita Houser MEDICAL PRACTICE MANAGER.CALL PERSON Work Phone: [facility] 04-21-1987 trivalent poliovirus vaccine, live, oral Tita Houser MEDICAL PRACTICE MANAGER.CALL PERSON Work Phone: [facility] 1986 diphtheria, tetanus toxoids and acellular pertussis vaccine Dr. Yousuf Ortiz MD Work Phone: [facility] 1986 diphtheria, tetanus toxoids and pertussis vaccine Tita Houser MEDICAL PRACTICE MANAGER.CALL PERSON Work Phone: [facility] 1986 diphtheria, tetanus toxoids and acellular pertussis vaccine Dr. Yousuf Ortiz MD Work Phone: [facility] 1986 diphtheria, tetanus toxoids and pertussis vaccine Tita Houser MEDICAL PRACTICE MANAGER.CALL PERSON Work Phone: [facility] 1986 trivalent poliovirus vaccine, live, oral Tita Houser MEDICAL PRACTICE MANAGER.CALL PERSON Work Phone: [facility] 1986 diphtheria, tetanus toxoids and acellular pertussis vaccine Dr. Yousuf Ortiz MD Work Phone: [facility] 1986 diphtheria, tetanus toxoids and pertussis vaccine Tita Houser APRN.CALL PERSON Work Phone: [facility] 1986 trivalent poliovirus vaccine, live, oral Jairo Romero MD Work Phone: [facility] Payers Date Payer Category Payer Unknown [id number] 2024 Self-pay [id number] 2021 Private Health Insurance [id number] 2021 Private Health Insurance [id number]. [id number] 1986 Unknown [id number] 2.16.840.1.262929.3.579.2. 903 1986 Unknown [id number] 2.16.840.1.778312.3.579.2. 479 Unknown [facility]* [id number] Effective for all dates [address] [address] [place] [address] [id number]. 7.3.117213.315 Unknown [id number] Unknown [id number] Unknown [id number] 2.16.840.1.518963.3.579.2. 462 Unknown [id number] 2.16.840.1.813233.3.579.2. 462 Unknown [id number] 2.16.840.1.494967.3.579.2. 462 Unknown [id number] 2.16.840.1.504870.3.579.2. 462 Unknown [id number] 2.16.840.1.514214.3.579.2. 462 Unknown [id number] 2.840.1.149922.3.579.2. 462 Unknown [id number] 2.840.1.152820.3.579.2. 462 Unknown [id number] 2.840.1.588727.3.579.2. 462 Unknown [id number] .840.1.112446.3.579.2. 462 Unknown [id number] 2.840.1.767177.3.579.2. 462 Unknown [id number] .0.1.052575.3.579.2. 462 Unknown [id number] 2.840.1.659910.3.579.2. 462 Unknown [id number] .840.1.480484.3.579.2. 462 Unknown [id number] .0.1.178048.3.579.2. 462 Unknown [id number] .0.1.303546.3.579.2. 462 Unknown [id number] 06.19.830.1.364244.3.579.2. 462 Unknown [id number] .840.1.795221.3.579.2. 462 Unknown [id number] 840.1.643800.3.579.2. 462 Unknown [id number] 06.19.830.1.392257.3.579.2. 462 Unknown [id number] 06.19.830.1.264548.3.579.2. 462 Unknown [id number] 06.19.830.1.713125.3.579.2. 462 Unknown [id number] 06.19.830.1.629063.3.579.2. 462 Social History Date Type Detail Facility Tobacco smoking stat [facility] Unknown if ever smoked [facility] Start: 1985 Sex Assigned At Not on file O [facility] Start: 12-24-2020 End: 08-03-2024 Tobacco smoking status NHIS Never smoked tobacco [facility] Start: 12-24-2020 End: 03-17-2022 Tobacco use and exposure Smokeless tobacco non-user [facility] Start: 11-21-2021 End: 06-17-2022 Tobacco smoking status NHIS Unknown if ever smoked [facility] Start: 1986 Sex Assigned At Female [facility] Start: 12-18-2021 Alcohol intake 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 non-dr soccer commentator of alcohol (finding) [facility] Start: 12-14-2021 End: 12-24-2021 Exposure to SARS-CoV-2 (event) Yes [facility] Start: 12-26-2022 End: 08-23-2023 Alcohol intake Current drinker of alcohol (finding) [facility] Start: 12-26-2022 End: 08-23-2023 History of Social function [facility] Work Phone: Start: 12-26-2022 End: 08-23-2023 Tobacco use panel [facility] Work Phone: Adult Depression Screening Assessment 0 [facility] Work Phone: Start: 12-26-2022 Alcohol Comment 1-2 drinks per month [facility] Start: 09-13-2022 Gender identity Identifies as female gender (finding) [facility] Goals Date Patient Goal Desired Activity /State Clinical Notes 12-24-2020 to 11-25-2024 Note Date & Type Note Facility 11-25-2024 Radiology Diagnostic study note [facility] [address] [place], [place] [id number] OB Limited (No Biometrics) MR#: [id number] Acct: [id number] Name: BRIGID BELLA Rep #: [id number] : 1985 F 39 From: Manan Iqbal MD PCP: Dr. Yousuf Ortiz MD Status: REG CLI Study:OB Limited (No Biometrics) Date of Exam : 11/22/24 Exam# [id number] Ordering Dr: Linda Salgado MD PROCEDURE: OB [...] fluid index of 9.7 cm. Reading Location: [id number] CC: Dr. Yousuf Ortiz MD; Dr. Linda Mcconnell MD ~ Warehouseman: Signed [facility] 11-24-[address] [facility] 11-24-2024 Progress note Note Date/Time November 24, 2024 4:12pm [facility] [address], [address] [place] [address] OFFICE VISIT Date of Service: 11/24/24 MR#: [id number] Acct: [id number] Name: BRIGID BELLA Rep #: [id number] : 1985 Provider: LIMA Valverde Age/Sex: 39/F Location: [facility] Status: Signed Intake Vital Signs 10/28/24 13:55 11/16/24 13:49 11/24/24 15:55 Height 5 ft 5 in 5 ft 5 in 5 ft 5 in Weight: 167 lb 165 lb 8 oz BMI 27.8 27.5 BP 113/73 123/84 H Intake Visit Reasons: 38 wk ob Chief Complaint: 38wk OB Channel Account Manager Required: No Is patient in pain?: No [...] umbilical cord Supervision of normal Surgical History Salcha teeth extracted No pertinent past surgical history [...] current occupational status: employed 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 Date Name GA/Weeks Outcome Route Bth Weight Infant Gen Labor Lgth Anesthesia Del Locatn Provider FOB Unknown 01/08/20 John 40 live - full term 7# 10oz M veronica 12 hours none [place], [place] Dr. Ibeth Carlos 06/17/22 Kevin 40 live - full term 8lbs 1oz Male n one [facility] Trish Murray CNM Terrance Delivery [...] nip t. anatomy us ordered. works in [employer] and wants anatomy scan [place] [facility]. 08/03/24 -?-?-?-?-?-?-?-?-?-?-?-?- 21w 6d 152 lb (+10 lb) 102/64 Negative -?-?-?-?-?-?-?-?-?-?-?-?- Negative 136 -?-?-?-?-?-?-?-?-?-?-?-?- MH-No VB. Angella garcia. Nl anatomy reviewed. Some gastric reflux/pepcid 08/31/24 -?-?-?-?-?-?-?-?-?-?-?-?- 25w 6d 156 lb 6 oz (+14 lb 6 oz) 107/71 Negative -?-?-?-?-?-?-?-?-?-?-?-?- Negative 140 -?-?-?-?-?-?-?-?-?-?-?-?- SM- no vb craariellei ng good fm. trav[place]ing [place] next week 09/29/24 -?-?-?-?-?-?-?-?-?-?-?-?- 30w 0d 164 [...] Monitoring, Signs and Symptoms of Preeclampsia and [place] [employer] ROS Const Reports system reviewed and [...] of other normal , second trimester Comment: [id number], JAZMIN 12/08/24, surprise Kevin Adams, Terrance (5) [...] this visit. GA appropriate handout given. 11/24/24 3652 <Electronically signed by Radha dalal CNM> Date _ Radha Valverde CNM [facility] Signature: Date (if applicable) CC: ~ [facility] Work Phone: 1(778) 889-510007-16-2025 Progress [facility] [address] [place] [address], [address] [place] [address] OFFICE VISIT Date of Service: 11/16/24 MR#: [id number] Acct: [id number] Name: BRIGID BELLA Rep #: [id number] : 1985 Provider: Dr. 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 Date Name GA/Weeks Outcome Route Bth Weight Infant Gen Labor Lgth Anesthesia Del Locatn Provider FOB Unknown 01/08/20 John 40 live - full term 7# 10oz M veronica 12 hours none [place] Dr. Ibeth Carlos 06/17/22 [place] 40 live - full term 8lbs 1oz Male n one [facility] Trish Murray CNM Terrance Delivery [...] nip t. anatomy us ordered. works in [employer] and wants [place] scan [place]. 08/03/24 -?-?-?-?-?-?-?-?-?-?-?-?- 21w 6d 152 lb (+10 lb) 102/64 Negative -?-?-?-?-?-?-?-?-?-?-?-?- Negative 136 -?-?-?-?-?-?-?-?-?-?-?-?- MH-No VB. Angella garcia. Nl anatomy reviewed. Some gastric reflux/pepcid 08/31/24 -?-?-?-?-?-?-?-?-?-?-?--?- 25w 6d 156 lb 6 oz (+14 lb 6 oz) 107/71 Negative -?-?-?-?-?-?-?-?-?-?-?-?- Negative 140 -?-?-?-?-?-?-?-?-?-?-?-?- SM- no vb jamari narayan good fm. [place]ing [place] next [place] 09/29/24 -?-?-?-?-?-?-?-?-?-?-?-?- 30w 0d 164 [...] of other normal , second trimester Comment: [id number], JAZMIN 12/08/24, surprise Kevin Adams, Terrance (3) [...] monserrat MONAE> Date _ Linda Mcconnell MD [facility] Signature: Date (if applicable) CC: ~ [facility] [id number] Progress note Author Linda Mcconnell [facility] Note Date/Time November 16, 2024 2:36 pm [facility] [address] [place] [address], [address] [place] [address] OFFICE VISIT Date of Service: 11/16/24 MR#: [id number] Acct: [id number] Name: BRIGID BELLA Rep #: [id number] : 1985 Provider: Dr. 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 Date Name GA/Weeks Outcome Route Bth Weight Infant Gen Labor Lgth Anesthesia Del Locatn Provider FOB Unknown 01/08/20 John 40 live - full term 7# 10oz M veronica 12 hours none [place] Dr. Ibeth Carlos 06/17/22 [place] 40 live - full term 8lbs 1oz Male n one [facility] Trish Murray CNM Terrance Delivery [...] nip t. anatomy us ordered. works in [employer] and wants [place] scan [place]. 08/03/24 -?-?-?-?-?-?-?-?-?-?-?-?- 21w 6d 152 lb (+10 lb) 102/64 Negative -?-?-?-?-?-?-?-?-?-?-?-?- Negative 136 -?-?-?-?-?-?-?-?-?-?-?-?- MH-No VB. Angella garcia. Nl anatomy reviewed. Some gastric reflux/pepcid 08/31/24 -?-?-?-?-?-?-?-?-?-?-?--?- 25w 6d 156 lb 6 oz (+14 lb 6 oz) 107/71 Negative -?-?-?-?-?-?-?-?-?-?-?-?- Negative 140 -?-?-?-?-?-?-?-?-?-?-?-?- SM- no vb jamari deluna fm. trav[place]ing [place] next [place] 09/29/24 -?-?-?-?-?-?-?-?-?-?-?-?- 30w 0d 164 [...] Monitoring, Signs and Symptoms of Preeclampsia and [place] [employer] Results POC Urinalysis 2 Dip (Clinic) [...] of other normal , second trimester Comment: [id number], JAZMIN 12/08/24, surprise PC Kevin Lopez, Terrance [...] POC Urinalysis 2 Dip (Clinic) Today 11/16/24 2701 <Electronically signed by Linda german MD> Date _ Linda Mcconnell MD Cosigner Signature: Date (if applicable) CC: ~ [facility] [employer] [facility] Work Phone: 1(613) 235-744707-15-2025 Radiology Diagnostic study note [facility] [address] [place] [address] OB Limited (No Biometrics) MR#: [id number] Acct: [id number] Name: BRIGID BELLA Rep #: [id number] : 1985 F 39 From: Ildefonso Rowe MD PCP: Dr. Yousuf Ortiz MD Status: REG CLI Study:OB Limited (No Biometrics) Date of Exam : 11/14/24 Exam# [id number] Ordering Dr: Radha Valverde CNM PROCEDURE: OB [...] is lower limits of normal. Reading Location: [facility] CC: LIMA Valverde; Dr. Yousuf Ortiz MD ~ Warehouseman: Signed [facility]07-06-2025 Radiology Diagnostic study note [facility] [address] [place], [place] [address] OB Limited With Biometrics MR#: [id number] Acct: [id number] Name: BRIGID BELLA Rep #: [id number] : 1985 F 39 From: Pet er Peer DO PCP: Dr. Yousuf Ortiz MD Status: REG CLI Study:OB Limited With Biometrics Date of Exam : 11/02/24 Exam# [id number] Ordering Dr: Sheyla Whiting DO PROCEDURE: OB [...] due date December 19, 2024 Reading [facility] CC: Dr. Yousuf rOtiz MD; Dr. Sheyla Small DO ~ Warehouseman: Signed [facility]06-27-2025 Progress [facility] [address], [address] [place] [address] OFFICE VISIT Date of Service: 10/28/24 MR#: [id number] Acct: [id number] Name: BRIGID BELLA Rep #: [id number] : 1985 Provider: Dr. 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 Date Name GA/Weeks Outcome Route Bth Weight Infant Gen Labor Lgth Anesthesia Del Locatn Provider FOB Unknown 01/08/20 [place] 40 live - full term 7# 10oz M veronica 12 hours none [place], [place] Dr. Ibeth Carlos 06/17/22 [place] 40 live - full term 8lbs 1oz Male n one [facility] Trish Murray CNM Terrance Delivery [...] nip t. anatomy us ordered. works in [employer] and [place] 08/03/24 -?-?-?-?-?-?-?-?-?-?-?-?- 21w 6d 152 lb (+10 lb) 102/64 Negative -?-?-?-?-?-?-?-?-?-?-?-?- Negative 136 -?-?-?-?-?-?-?-?-?-?-?-?- MH-No VB. Angella garcia. Nl anatomy reviewed. Some gastric reflux/pepcid 08/31/24 -?-?-?-?-?-?-?-?-?-?-?-?- 25w 6d 156 lb 6 oz (+14 lb 6 oz) 107/71 Negative -?-?-?-?-?-?-?-?-?-?-?-?- Negative 140 -?-?-?-?-?-?-?-?-?-?-?-?- SM- no vb crampi sylvain good fm. travleing to the [place] next week 09/29/24 -?-?-?-?-?-?-?-?-?-?-?-?- 30w 0d 164 [...] of other normal , second trimester Comment: [id number], JAZMIN 12/08/24, surprise Kevin Adams, Terrance (3) [...] Signature: Date (if applicable) CC: ~ [facility]06-27-2025 Progress note Author Sheyla Polk [facility] Note Date/Time October 28, 2024 2:22 pm [facility] [address] [place] [address], [address] [place] [address] OFFICE VISIT Date of Service: 10/28/24 MR#: [id number] Acct: [id number] Name: BRIGID BELLA Rep #: [id number] : 1985 Provider: Dr. 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 Date Name GA/Weeks Outcome Route Bth Weight Infant Gen Labor Lgth Anesthesia Del Locatn Provider FOB Unknown 01/08/20 [place] 40 live - full term 7# 10oz M veronica 12 hours none [place] Dr. Ibeth Carlos 06/17/22 [place] 40 live - full term 8lbs 1oz Male n one [facility] Trish Murray ROSA Terrance Delivery Date: 06/17/22 [...] nip t. anatomy us ordered. works in [employer] and [place] anatomy [place] 08/03/24 -?-?-?-?-?-?-?-?-?-?-?-?- 21w 6d 152 lb (+10 lb) 102/64 Negative -?-?-?-?-?-?-?-?-?-?-?-?- Negative 136 -?-?-?-?-?-?-?-?-?-?-?-?- MH-No VB. Angella garcia. Nl anatomy reviewed. Some gastric reflux/pepcid 08/31/24 -?-?-?-?-?-?-?-?-?-?-?-?- 25w 6d 156 lb 6 oz (+14 lb 6 oz) 107/71 Negative -?-?-?-?-?-?-?-?-?-?-?-?- Negative 140 -?-?-?-?-?-?-?-?-?-?-?-?- SM- no vb crampi ng good fm. travleing to [place] next week 09/29/24 -?-?-?-?-?-?-?-?-?-?-?-?- 30w 0d 164 [...] of other normal , second trimester Comment: [id number], JAZMIN 12/08/24, Kevin Schaeffer, Terrance (3) : [...] Mendoza DO> Date _ Sheyla Small DO [facility] Services[facility] Signature: Date (if applicable) CC: ~ [facility] Work Phone: 1(437) 709-294705-29-2025 Progress [facility] [address] [place] [address], [place] [address] OFFICE VISIT Date of Service: 09/29/24 MR#: [id number] Acct: [id number] Name: BRIGID BELLA Rep #: [id number] : 1985 Provider: LIMA Valverde Age/Sex: 39/F Location: [facility] Status: Signed Intake Vital Signs 08/03/24 08:30 08/03/24 08:46 08/31/24 09:09 09/29/24 15:15 Height 5 ft 5 in 5 ft 5 in 5 ft 5 in 5 ft 5 in Weight: 164 lb 2 oz BMI 27.3 BP 107/74 Intake Visit Reasons: 30wk ob Chief Complaint: 30wk OB Channel Account Manager Required: No Is patient in pain?: No [...] umbilical cord Supervision of normal Surgical History Salcha teeth extracted No pertinent past surgical history [...] current occupational status: employed 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 Date Name GA/Weeks Outcome Route Bth Weight Infant Gen Labor Lgth Anesthesia Del Locatn Provider FOB Unknown 01/08/20 [place] 40 live - full term 7# 10oz M veronica 12 hours none [place] Dr. Ibeth Carlos 06/17/22 [place] 40 live - full term 8lbs 1oz Male n one [facility] Trish Murray CNM Terrance Delivery [...] nip t. anatomy us ordered. works in [employer] and wants anatomy scan in [place] 08/03/24 -?-?-?-?-?-?-?-?-?-?-?-?- 21w 6d 152 lb (+10 lb) 102/64 Negative -?--?-?-?-?-?-?-?-?-?-?-?- Negative 136 -?-?-?-?-?-?-?-?-?-?-?-?- MH-No VB. Angella garcia. Nl anatomy reviewed. Some gastric reflux/pepcid 08/31/24 -?-?-?-?-?-?-?-?-?-?-?-?- 25w 6d 156 lb 6 oz (+14 lb 6 oz) 107/71 Negative -?-?-?-?-?-?-?-?-?-?-?-?- Negative 140 -?-?-?-?-?-?-?-?-?--?-?-?- SM- no vb crampi ng good fm. trav[place]ing [place] next week 09/29/24 -?-?-?-?-?-?-?-?-?-?-?-?- 30w 0d 164 [...] Monitoring, Signs and Symptoms of Preeclampsia and [place] Education ROS Const Reports system reviewed and [...] Performing Provider: Radha Valverde CNM Performing Location: [facility] Administered by: Hailey Stallworth on 09/29/24 15:27 Dose Route Admin Location Dispensed Lot Number Expiration Date NDC Property Clerk 0.5 mL IM Left Deltoid 0.5 mL [id number] 08/31/26 04955-230-26 SANOF I-PASTEUR VIS Given Date VIS Provided [...] of other normal , second trimester Comment: [id number], JAZMIN 12/08/24, surprise Kevin Adams, Terrance (3) [...] Signature: Date (if applicable) CC: ~ [facility]05-29-2025 Progress note Author Radha Valverde [facility] Note Date/Time September 29, 2024 3:42p [facility] [address], [address] [place] [address] OFFICE VISIT Date of Service: 09/29/24 MR#: [id number] Acct: [id number] Name: BRIGID BELLA Rep #: [id number] : 1985 Provider: LIMA Valverde Age/Sex: 39/F Location: [facility] Status: Signed Intake Vital Signs 08/03/24 08:30 08/03/24 08:46 08/31/24 09:09 09/29/24 15:15 Height 5 ft 5 in 5 ft 5 in 5 ft 5 in 5 ft 5 in Weight: 164 lb 2 oz BMI 27.3 BP 107/74 Intake Visit Reasons: 30wk ob Chief Complaint: 30wk OB Channel Account Manager Required: No Is patient in pain?: No [...] umbilical cord Supervision of normal Surgical History [place] teeth extracted No pertinent past surgical history [...] current occupational status: employed 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 Date Name GA/Weeks Outcome Route Bth Weight Infant Gen Labor Lgth Anesthesia Del Locatn Provider FOB Unknown 01/08/20 [place] 40 live - full term 7# 10oz M veronica 12 hours none [place] Dr. Ibeth Carlos 06/17/22 [place] 40 live - full term 8lbs 1oz Male n one [facility] Trish Murray CNAbel Jenkinswn Delivery Date: 06/17/22 [...] nip t. anatomy us ordered. works in [employer] and [place]. 08/03/24 -?-?-?-?-?-?-?-?-?-?-?-?- 21w 6d 152 lb (+10 lb) 102/64 Negative -?--?-?-?-?-?-?-?-?-?-?-?- Negative 136 -?-?-?-?-?-?-?-?-?-?-?-?- MH-No VB. Angella garcia. Nl anatomy reviewed. Some gastric reflux/pepcid 08/31/24 -?-?-?-?-?-?-?-?-?-?-?-?- 25w 6d 156 lb 6 oz (+14 lb 6 oz) 107/71 Negative -?-?-?-?-?-?-?-?-?-?-?-?- Negative 140 -?-?-?-?-?-?-?-?-?--?-?-?- SM- no vb crampi ng good fm. trav[place]ing [place] next week 09/29/24 -?-?-?-?-?-?-?-?-?-?-?-?- 30w 0d 164 [...] Performing Provider: Radha Valverde CNM Performing Location: [facility] Administered by: Hailey Stallworth on 09/29/24 15:27 Dose Route Admin Location Dispensed Lot Number Expiration Date NDC Property Clerk 0.5 mL IM Left Deltoid 0.5 mL [id number] 08/31/26 28008-431-19 SANOF I-PASTEUR VIS Given Date VIS Provided [...] of other normal , second trimester Comment: [id number], JAZMIN 12/08/24, Kevin Schaeffer, Terrance (3) : [...] No 09/29/24 1542 <Electronically signed by Radha dalal CNM> Date _ Radha Valverde CNM Cosigner Signature: Date (if applicable) CC: ~ [facility] [employer] Work Phone: 1(873) 903-487704-02-2025 Evaluation note* Diagnosis Onset Date Resolution Status [...] normal acut e October 28, 2024 1:51pm [facility] Work Phone: 1(459) 342-180504-02-2025 Evaluation note* Diagnosis Onset Date Resolution Status [...] normal acut e November 11, 2024 3:34pm [facility] Work Phone: 1(393) 862-269304-02-2025 Evaluation note* Diagnosis Onset Date Resolution Status [...] normal acut e November 16, 2024 1:47pm [facility] Work Phone: 1([phone]) 445-731504-02-2025 Evaluation note* Diagnosis Onset Date Resolution Status [...] normal acut e November 24, 2024 3:54pm [facility] Work Phone: 1([phone]) 132-537704-02-2025 Evaluation note* Diagnosis Onset Date Resolution Status [...] normal acut e December 01, 2024 3:09pm [facility] Work Phone: 1([phone]) 267-987303-04-2025 Evaluation note* Diagnosis Onset Date Resolution Status [...] acut e October 12, 2024 8:[address] [facility] Work Phone: 1([phone]) 575-341603-04-2025 Evaluation note* Diagnosis Onset Date Resolution Status [...] normal acut e October 28, 2024 1:51pm [facility] Work Phone: 1([phone]) 654-833301-31-2025 Evaluation note* Diagnosis Onset Date Resolution Status [...] normal acut e September 29, 2024 3:12pm [facility] [employer] Work Phone: 1(218) 985-538004-21-2024 NoteHNO ID: [id number] Author: TITA HOUSER APRN.CALL PERSON Service: ? Author Type: Nurse Practitioner Type: [...] history is provided by the patient. No english language arts teacher was used. Eye Problem This is a [...] rhonchi or rales. Chest: (more content not included)...[facility]04-21-2024 History of Present illness Narrative* Tita Houser APRN.CALL PERSON - 08/23/2023 10:09 AM EDT This note was created using adSageter. Subjective Brigid Bella is a 38 year [...] history is provided by the patient. No english language arts teacher was used. Eye Problem This is a [...] sooner if worsening of symptoms Tita Houser APRN.CALL PERSON documented in [facility]03-[facility]24 Miscellaneous Notes* Telephone Encounter - Juan [...] rx to requested pharmacy. documented in this encounterMer[facility]11-17-2023 NoteHNO ID: [id number] Author: Jairo Romero MD Service: ? Author [...] last [address] Small for RETAIL AIDE with appointment in July. 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 [...] No history of dysuria, frequency or incontinence RETAIL AIDE: Negative for abnormal vaginal bleeding, abnormal vaginal [...] rash. 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 Head: Normocephalic, no masses, lesions, tenderness or [...] fL 89.7 MCH 2 (more content not included)...[facility]08-25-2023 NoteHNO ID: [id number] Author: Jairo Romero MD Service: ? Author [...] which included preparing to see the patient, dits-an-ofhn patient care, completing clinical documentation, obtaining and/or reviewing separately obtained history, performing a medically appropriate examination, counseling and educating the patient/family/caregiver, and ordering medications, tests, or procedures. Jairo Romero [facility]08-25-2023 History of Present illness Narrative* Jairo Romero [...] which included preparing to see the patient, cgkr-[id number] patient care, completing clinical documentation, obtaining and/or reviewing separately obtained history, performing a medically appropriate examination, counseling and educating the pat ient/family/caregiver, and ordering medications, tests, or procedures. Jairo Romero MD documented in this encounterMer[facility]02-15-2023 Progress note Author Trihs Murray [facility] June 18, 2022 10:11am Note Date/Time June 18, 2022 10:11am [facility] Medical Records Department [address] [place] [address] Progress Note - OBGYN 06/18/22 1009 MR#: [id number] Acct: [id number] Name: BRIGID BELLA Rep #:[id number] : 1985 37 From: Trish Murray CNM PCP: Care Physician,No Primary Status :ADM IN Location: VW174-0 Subjective Subjective Patient doing well without complaints. [...] Cosigner Signature (if applicable): CC: ~ Signed [facility] Work Phone: 1([phone]) 853-801002-14-2023 Discharge summary Author Trish Murray [facility] June 17, 2022 1:53am Note Date/Time June 17, 2022 1:53am [facility] Medical Records Department [address] [place] [address] [place] [address] Instructions for Home/Discharge Instructions 06/17/22 0152 MR#: [id number] Acct: [id number] Name: BRIGID BELLA Rep #:[id number] : [...] CC: No Primary Care Physician ~ Signed [facility] Work Phone: 1([phone]) 105-651502-14-2023 History and physical note Author Trish Murray [facility] June 17, 2022 1:47am Note Date/Time June 17, 2022 1:47am [facility] Medical Records Department [address] [place] [address] [place] [address] H&P 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 - 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 06/17/22 0138 MR#: [id number] Acct: [id number] Name: BRIGID BELLA Rep #:[id number] : 1985 37 From: Trish Murray CNM PCP: Nick Physician,No Primary Status :ADM IN [facility] - General General Date of Admission: [...] current occupational status: employed 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 Ibeth Carlos Visit Details Expected [...] Rate Baby A Baseline: 125, loss of pickle processor Variability:: Moderate Accelerations:: 15 x 15 Decelerations:: [...] 2 vessel cord I have reviewed the [facility] and made any clinically relevant updates. Dr. Mcconnell updated on POC, admission and exam. co-management for 2 vessel cord 06/17/22 0147 <Electronically signed by Trish Murray CNM> Cosigner Signature (if applicable): CC: LIMA Murray; No Primary Care Physician~ Signed [facility] Work Phone: [phone]) 779-718802-14-2023 Procedure [facility] 12-24-2021 Instructions* Patient Instructions* Tita Houser APRN.CALL PERSON - 12/24/2021 12:09 PM EDT Headache, unspecified [...] No follow-ups on file. documented in this encounterMer[facility]08-23-2022 History of Present illness Narrative* Tita Houser APRN.CNP - 12/24/2021 12:02 PM EDT This note was created using Switchcam. Subjective Brigid Bella is a 36 year [...] history is provided by the patient. No english language arts teacher was used. Headache This is a new [...] WITH FLUA+B, ROUTINE-pending Use Tylenol. Tita Houser APRN.CALL PERSON documented in this encounterMercy [facility]08-23-2021 History of Present illness Narrative* Kathy [...] months. Side effects including teratogenicty dangers of industrial organizational psychologist use explained;. Pertinent PE: hyperpigmented patches forehead [...] Kathy Rivera MD 12/24/2020 documented in this [id number] Instructions* Patient Instructions* Rach Lopez MA - 12/24/2020 9:33 AM EDT Effective 05/18/2019, all [employer]em users will be automatically enrolled in paperless billing in an effort to save our environment by eliminating waste & reduce healthcare costs. A monthly notification will be sent to your e-mail address on file indicating you have a new billing statement available in Deem. If you prefer to receive paper statements, log into [employer] at [employer]™ to update your e-mail, text and mail preferences (opting out of paperless billing). Please direct further questions to [employer] at [phone] or [email or web address]. documented in this encounterIllinoisHealthEvaluation note* Diagnosis Melasma- Primary Other dyschromia documented in this encounter [facility]* Diagnosis Melasma- Primary Other dyschromia Dermal nevus of left cheek Osborne angioma documented in this encounter [facility]* Diagnosis Onset Date Resolution Status acute Supervision of normal [facility] Work Phone: Evaluation note* Diagnosis Headache, unspecified headache type- Primary Viral illness Unspecified viral infection, in conditions classified elsewhere and of unspecified site documented in this encounter [facility]* Diagnosis Onset Date Resolution Status acute Supervision of normal acute acute Supervision of normal acute Echogenic bowel of fetus acu te acute Supervision of normal [facility] Work Phone: Evaluation note* Diagnosis Onset Date [...] affecting a cute Anemia affecting a cute [facility] Work Phone: Evaluation note* Diagnosis Melasma- Primary Other dyschromia Encounter to establish care Other reasons for seeking consultation Depression screening Screening for depression documented in this encounter [facility]* Diagnosis Conjunctivitis of right eye, unspecified conjunctivitis type- Primary URI, acute Acute upper respiratory infections of unspecified site documented in this encounter [facility]Re[facility] (narrative)No reason for referral information availableBlPerry County Memorial [facility] Services Work Phone: Summary Purpose Family History [...] FoundDocuments on File Type Date Recorded 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 [facility] 01/10/20 11:23 [address] [place]. [address] PATIENT INFORMATION Name: BRIGID BELLA [address]: [address] [place] [id number] Age: 34 Years Phone: [phone] : 1985 12:00 MRN: ([id number] Sex: Female Race: White Ethnicity: Not Hispan/Lat Admitted From: Clinic or [facility] Medical Service: Obstetric Nurse Unit/Bed: (CO) DAVINA 6O49-68 Admit Date: 01/08/2020 13:46 PCP: Physician, PCP Unknown PHYSICIANS INVOLVED WITH CARE Attending Physicians: Ibeth Gómez MD, Shantel Jacobs - Gynecology, Obstetrics Admitting Physician: Ibeth Gómez MD, Shantel Jacobs - Gynecology, Obstetrics Primary Care Physician:Physician, PCP Unknown,Family Practice,,, - Consults: Praneeth MONAE, Zahida - Pediatrics Problems Active (more content not included)... Note Patient: BRIGID BELLA RN: ([facility])-[id number] Age: 34 years Sex: Female : 1985 [...] included)... Assessments Note Patient: BRIGID BELLA RN: ([facility])-[id number] Age: 34 years Sex: Female : 1985 [...] Best Interest Dermatology Diagnoses Sabiha Lugo MD [address] [place] [id number] NicoleKathy MD [address] [place] [id number] Chief Complaint and Reason for Visit Chief [...] content) DATE CREATED AUTHOR 01/10/2020 Dillan Robison [facility] DATE CREATED AUTHOR AUTHOR'S ORGANIZ ATION 10/27/2020 [facility] DATE CREATED AUTHOR AUTHOR'S ORGANIZ ATION 12/24/2020 [facility] DATE CREATED AUTHOR AUTHOR'S ORGANIZ ATION 08/23/2023 [facility] DATE CREATED AUTHOR AUTHOR'S ORGANIZ ATION 07/29/2024 [facility] DATE CREATED AUTHOR AUTHOR'S ORGANIZ ATION 12/04/2024 [facility] Reason for Visit (unrecogniz ed section and content) Reason Comments Skin Lesion 1. Left cheek raised unchanged #2) abdomen red years unchanged Skin Discoloration Forehead, >1 year, s tarted during , changing in color, untreated. Specialty Diagnoses / Procedures Referred By Misti hsu Referred To Contact Dermatology Diagnoses Melasma Sabiha Cooper MD [address] [place] [address] Kathy Rivera MD [address] [place] [id number] Referral ID Status Reason Start Date Expiration Date V isits Requested Visits Authorized [id number] Closed Specialty Services Required/Magalis ent's Best Interest 10/26/2020 10/26/2021 1 1 Reason Comments Headache nasal drip, chills, cough, x 5 days, increased x 3 days Reason Comments Establish Care Wellness visit paper work Reason Comments Results Reason Comments Eye Problem R eye redness swelli ng crust this am Care Teams (unrecognized sec tion and content) Enterprise Systems Engineer Relationship Specialty Start Date End Date Sabiha Cooper MD [address] [place] [address] PCP - General Internal Medicine 11/23/20 Enterprise Systems Engineer Relationship Specialty Start Date End Date Pcp, [...] Provider, Refer ring Provider Active Micaela Peterson [employer] SENIOR OFFICER, [employer] S[employer]IOR OFFICER-C Attending Provider Active Team Status: Inactive [...] CNM Admit Provider, Attending Provid er Active Enterprise Systems Engineer Relationship Specialty Start Date End Date Jairo Romero MD [address] [place], [place] [address] PCP - General Family Medicine 12/26/22 Enterprise Systems Engineer Relationship Specialty Start Date End Date Jairo Romero MD [address] [place], [place] [id number] PCP - General Family Medicine 12/26/22 Enterprise Systems Engineer Relationship Specialty Start Date End Date Jairo Romero MD [address], [place] [id number] PCP - General Family Medicine 12/26/22 Team Status: Active Member Role Status Dates Dr. Yousuf Ortiz MD Primary Care Provider Active Team Status: Inactive Member Role Status Dates Dr. Yousuf Otriz MD Primary Care Provider Active Start: June [...] 2024 End: August 03, 2024 Micaela Peterson [employer], [employer] Attending Provider Active Start: August 03, [...] 2024 End: August 03, 2024 Micaela Peterson [employer], [employer] Attending Provider Active Start: August 03, [...] Status: Inactive Member Role/Relationship Status Dates Dr. Yuosuf Ortiz MD Primary Care Provider Active Start: August 03, 2024 End: August 03, 2024 Dr. Yousuf Ortiz MD Referring Provider Active Start: August 03, 2024 End: August 03, 2024 Micaela Peterson NP, [employer] Attending Provider Active Start: August 03, [...] 28, 2024 End: October 28, 2024 Dr. Youusf Ortiz MD Referring Provider Active Start: October [...] 2024 End: November 11, 2024 Dr. Yousuf Otriz MD Referring Provider Active Start: November 11, [...] Active Start: November 22, 2024 Dr. Linda Mcconnlel MD Attending Provider Active Start: November 22, [...] or prosecute any alcohol or drug abuse patient.[facility] the event this information is protected by the Federal Confidentiality of Alcohol and Drug Abuse Patient Records regulations: The Federal rules restrict any use of the information to criminally investigate or prosecute any alcohol or drug abuse patient.[facility] HospitalIn the event this information is protected [...] or prosecute any alcohol or drug abuse patient.[facility] FOR RECORDS PERTAINING TO PATIENTS WHO [...] BE BASED ON THE PRIMARY CLINICAL RECORDS. [facility] provides no warranty or guarantee of the accuracy or completeness of information in this document.
--- OUTSIDE RECORDS SUMMARY | 2024-12-05 05:37 | XMS RPT_ITS | CCD ---
Author Organization [facility] Care Team Providers Care Juvenile Detention Officer Name Role Phone Unavailable Primary Care Provider Sabiha Abdi MD Primary Care Provider NICOLEKATHY Attending Unavailable SABIHA COOPER Referring Unavailable SABIHA COOPER Primary Care Unavailable Dr. Sheyla Small Attending Provider [phone] Pcp, No Primary Care Provider UnavailDr. Linda Chaudhry Attending Provider [phone] Care Physician, No Primary Primary Care Provider Unavailable Care Physician, No Primary Referring Provider Un available Care Physician, No Primary Primary Care Provider Unavailable Care Physician, No Primary Referring Provider Un available Dr. Sheyla Small Attending Provider [phone] Kristen COOL, ISHAN Hinojosa Attending Provider [phone] LIMA Murray Attending Provider [phone] Dr. Linda Mcconnell Attending Provider [phone] LIMA Murray Admit Provider [phone] LIMA Murray Other Provider [phone] Jairo Romero MD Primary Care Provider [...] Dr. Sheyla Small DO Attending Provider Kristen LABORER YARD-C, Micaela Attending Provider [phone] MONAE, Dr. [...] Murray Referring Unavailable Angel, Yousuf Referring Unavailable Dunsmuir, Yousuf Primary Care Unavailable Sheyla Polk Attending Unavailabl e Radha Valverde Attending Unavailable Angel, Yousuf Referring Unavailable Dunsmuir, Yousuf Primary Care Unavailable Dunsmuir, Yousuf Primary Care Unavailable Trish Murray Attending Unavailable Dunsmuir, Yousuf Referring Unavailable Sheyla Polk Attending Unavailabl e Sheyla Polk Referring Unavailabl e Angel, Yousuf Primary Care Unavailable Radha Valverde Referring Unavailable Radha Valverde Attending Unavailable Dunsmuir, Yousuf Primary Care Unavailable Linda Mcconnell Attending Unavailable Linda Mcconnell Referring Unavailable Angel, Yousuf Primary Care Unavailable Dunsmuir, Yousuf Primary Care Unavailable Angel, Yousuf Attending Unavailable Dunsmuir, Yousuf Referring Unavailable Angel, Yousuf Primary Care Unavailable Dunsmuir, Yousuf Attending Unavailable Dunsmuir, Yousuf Referring Unavailable Radha Valverde Attending Unavailable Radha Valverde Referring Unavailable Dunsmuir, Yousuf Primary Care Unavailable Radha Valverde Attending Unavailable Dunsmuir, Yousuf Primary Care Unavailable Angel, Yousuf Attending Unavailable Care Physician, No Primary Primary Care Unava ilable Care Physician, No Primary Referring Unava ilable Radha Valverde Attending Unavailable Dunsmuir, Yousuf Referring Unavailable Angel, Yousuf Primary Care Unavailable Linda Mcconnell Attending Unavailable Dunsmuir, Yousuf Referring Unavailable Angel, Yousuf Primary Care Unavailable Micaela Peterson Attending Unavailable Angel, Yousuf Referring Unavailable Angel, Yousuf Primary Care Unavailable Sheyla Polk Attending Unavailabl e Angel, Yousuf Referring Unavailable Angel, Yousuf Primary Care Unavailable Linda Mcconnell Attending Unavailable Dunsmuir, Yousuf Primary Care Unavailable Angel, Yousuf Referring Unavailable Dunsmuir, Yousuf Referring Unavailable Dunsmuir, Yousuf Primary Care Unavailable Sheyla Polk Attending UnavailRadha Martinez Attending Unavailable Dunsmuir, Yousuf Referring Unavailable Dunsmuir, Yousuf Primary Care Unavailable Dunsmuir, Yousuf Referring Unavailable Dunsmuir, Yousuf Primary Care Unavailable Sheyla Polk Attending UnavailRadha Martinez Attending Unavailable Dunsmuir, Yousuf Referring Unavailable Angel, Yousuf Primary Care Unavailable Linda Mcconnell Attending Unavailable Linda Mcconnell Referring Unavailable Dunsmuir, Yousuf Primary Care Unavailable Medications Current Medications [...] 30 g 1 12/24/2020 01/23/2021 Active Multivit 06-Nlfz-Leikql 1-Dha (Pnv-Dha) 27 mg iron-1 mg -300 mg capsule (11 sources) Start: 05-20-2024 Multivit 24-Ewve-Uwbrdc 1-Dha (Pnv-Dha) 27 mg iron-1 mg -300 [...] also has di lated stomach. report from [facility] pendingtoxo and cmv ordered NIPT was [...] trimester] Onset: 07-05-2024 Episodic Comment on above: [id number], JAZMIN 12/08/24, surprise CHRISTINA Lopez, Kevin, Terrance [...] complications: 2 vessel cordI have reviewed the [facility] and made any clinically relevant updates.Dr. Mcconnell updated on POC, admission and exam. co-management for 2 vessel cord Unclassified (7 sources) bowel echogenicity on obstetric ultrasound scan; Translations: [Echogenic bowel of fetus] 05-24-2022 Results Test Name Value Interpretation Reference Range Facility OB Biophysical Prof W/O NSTo n 12-01-2024 OB Biophysical Prof W/O NST [facility] Services [address] [place] [id number] OB Biophysical Prof W/O NST MR#: [id number] Acct: [id number] Name: BRIGID BELLA Rep #: [id number] : 1985 F 39 From: Santo acosta MD PCP: Dr. Yousuf Ortiz MD Status: REG CLI Study: OB Biophysical Prof W/O NST Date of Exam: 11/03 05/28 Exam# [id number] Ordering Dr: Radha Valverde CNM PROCEDURE: OB [...] NST IMPRESSION: Normal biophysical profile. Reading Location: [id number] CC: LIMA Valverde; Dr. Yousuf Ortiz MD Associate Professor Computer Science: Signed Normal [facility] Sole Trimmer Office Visit Reporton 12-01-2024 Sole Trimmer Office Visit Report [facility]'s [address], [address] [place] [address] OFFICE VISIT Date of Service: 12/01/24 MR#: [id number] Acct: [id number] Name: BRIGID BELLA Rep #: [id number] : 1985 Provider: LIMA Gusman ams Age/Sex: 39/F [place] [facility]: Signed Intake Vital Signs 10/28/24 13:55 11/24/24 15:55 12/01/24 15:13 Height 5 ft 5 in 5 ft 5 in 5 ft 5 in Weight: 164 lb 8 oz BMI 27.3 BP 108/69 Intake Visit Reasons: 39 wk ob Chief Complaint: 39wk OB Algology Teacher Required: No Is patient in pain?: [...] umbilical cord Supervision of normal Surgical History Partridge teeth extracted No pertinent past surgical history [...] current occupational status: employed 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 Date Name GA/Weeks Outcome Route Bth Weight Gen Labor Lgth Anesthesia Del Locatn Provider FOB Unknown 01/08/20 John 40 live - full term 7# 10oz Male 12 hour s none [place], [place] Dr. Ibeth Carlos 06/17/22 Kevin 40 live - full term 8lbs 1oz Male none [facility] Danuta Carlos Delivery Date: 06/17/22 Last Updated [...] 06/03/24 -???-???-???-???-? (more content not included)... Normal [facility] Laboratory - Chemistry and C hemistry - challengeOrdered By: Radha Valverde on 11-24-2024 Glucose Ql (U) Negative [facility] Laboratory - UrinalysisOrder ed By: Radha Valverde on 11-24-2024 Protein Ql (U) Negative [facility] Sole Trimmer Office Visit Reporton 11-24-2024 Sole Trimmer Office Visit Report [facility]'s [address], [address] [place] [address] OFFICE VISIT Date of Service: 11/24/24 MR#: [id number] Acct: [id number] Name: BRIGID BELLA Rep #: [id number] : 1985 Provider: LIMA Gusman ams Age/Sex: 39/F [place] [facility] [place]: Signed Intake Vital Signs 10/28/24 13:55 11/16/24 13:49 11/24/24 15:55 Height 5 ft 5 in 5 ft 5 in 5 ft 5 in Weight: 167 lb 165 lb 8 oz BMI 27.8 27.5 BP 113/73 123/84 H Intake Visit Reasons: 38 wk ob Chief Complaint: 38wk OB Algology Teacher Required: No Is patient in pain?: [...] umbilical cord Supervision of normal Surgical History Partridge teeth extracted No pertinent past surgical history [...] current occupational 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 Date Name GA/Weeks Outcome Route Bth Weight Gen Labor Lgth Anesthesia Del Locatn Provider FOB Unknown 01/08/20 Ramey 40 live - full term 7# 10oz Male 12 hour s none [place], [place] Dr. Ibeth Carlos 06/17/22 Embudo 40 live - full term 8lbs 1oz Male none [facility] roger Murray [facility] Terrance Delivery Date: 06/17/22 Last Updated [...] Note 06/03/24 (more content not included)... Normal [facility] OB Limited (No Biometrics)on 11-22-2024 OB Limited (No Biometrics) [facility] Imaging Services [address] [place], [place] [address] OB Limited (No Biometrics) MR#: [id number] Acct: [id number] Name: BRIGID BELLA Rep #: [id number] : 1985 F 39 From: Kim Iqbal MD PCP: Dr. Yousuf Ortiz MD Status: REG CLI Study: OB Limited (No Biometrics) Date of Exam: 11/22 Exam# [id number] Ordering Dr: Linda Mcconnell PROCEDURE: OB LIMITED [...] fluid index of 9.7 cm. Reading Location: [id number] CC: Dr. Yousuf Ortiz MD; Dr. Linda Mcconnell MD Associate Professor Computer Science: Signed Normal [facility] Laboratory - Chemistry and C hemistry - challengeOrdered By: Linda Mcconnell on 11-16-2024 Glucose Ql (U) Negative [facility] Laboratory - UrinalysisOrder ed By: Linda Mcconnell on 11-16-2024 Protein Ql (U) Negative [facility] Sole Trimmer Office Visit Reporton 11-16-2024 Sole Trimmer Office Visit Report [facility] [address], [address] [place] [address] OFFICE VISIT Date of Service: 11/16/24 MR#: [id number] Acct: [id number] Name: BRIGID BELAL Rep #: [id number] : 1985 Provider: Dr. 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 Date Name GA/Weeks Outcome Route Bth Weight Gen Labor Lgth Anesthesia Del Locatn Provider FOB Unknown 01/08/20 Ramey 40 live - full term 7# 10oz Male 12 hour s none [place], [place] Dr. Ibeth Carlos 06/17/22 Embudo 40 live - full term 8lbs 1oz Male none [facility] roger Murray CN Terrance Delivery Date: [...] -???-???-???-???-???-? ??-???-???-???-???-??? (more content not included)... Normal [facility] OB Limited (No Biometrics)on 11-14-2024 OB Limited (No Biometrics) [facility] Services [address] [place] [address] OB Limited (No Biometrics) MR#: [id number] Acct: [id number] Name: BRIGID BELLA Rep #: [id number] : 1985 F 39 From: Santo acosta MD PCP: Dr. Yousuf Ortiz MD Status: REG CLI Study: OB Limited (No Biometrics) Date of Exam: 11/14 Exam# [id number] Ordering Dr: Radha Valverde CNM PROCEDURE: OB [...] is lower limits of normal. Reading Location: [id number] CC: LIMA Valverde; Dr. Yousuf Ortiz MD Associate Professor Computer Science: Signed Normal [facility] Rule out Beta Strep (Grp. B) on 11-14-2024 BECKA Group B Beta Streptococcus is not isolated. Normal [facility] Comment on above: Performed By: #### M 100.3406 ####[facility] [address] [facility]. [place], [place], [address] Laboratory - Chemistry and C hemistry - challengeOrdered By: Radha Valverde on 11-11-2024 Glucose Ql (U) Negative [facility] Laboratory - UrinalysisOrder ed By: Radha Valverde on 11-11-2024 Protein Ql (U) Negative [facility] Sole Trimmer Office Visit Reporton 11-11-2024 Sole Trimmer Office Visit Report [facility] [address], [address] [place] [address] OFFICE VISIT Date of Service: 11/11/24 MR#: [id number] Acct: [id number] Name: BRIGID BELLA CHRISTIANA Rep #: [id number] : 1985 Provider: LIMA Gusman ams Age/Sex: 39/F Location[place] [facility] Status: Signed Intake Vital Signs 09/29/24 15:15 10/28/24 13:55 11/11/24 15:41 Height 5 ft 5 in 5 ft 5 in 5 ft 5 in Weight: 165 lb 2 oz BMI 27.4 BP 120/78 Intake Visit Reasons: 36 wk ob Algology Teacher Required: No Is patient in pain?: [...] umbilical cord Supervision of normal Surgical History Partridge teeth extracted No pertinent past surgical history [...] current occupational 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 Date Name GA/Weeks Outcome Route Bth Weight Infant Gen Labor Lgth Anesthesia Del Locatn Provider FOB Unknown 01/08/20 Ramey 40 live - full term 7# 10oz Male 12 hour s none [place], [place] Dr. Ibeth Carlos 06/17/22 Kevin 40 live - full term 8lbs 1oz Male none [facility] roger Murray [facility] Terrance Delivery Date: 06/17/22 Last Updated [...] -???-???-???-???-???-? ??-???-???-???- (more content not included)... Normal [facility] Screening beta-hemolytic Str eptococcus cultureOrdered By: Radha Valverde on 11-11-2024 Beta-hemolytic Streptococcus culture Group B Beta Streptococcus is not isolated. [facility] OB Limited With Biometricson 11-02-2024 OB Limited With Biometrics [facility] [address] [place], [place] [address] OB Limited With Biometrics MR#: [id number] Acct: [id number] Name: BRIGID BELLA Rep #: [id number] : 1985 F 39 From: Dimitri Hanson DO PCP: Dr. Yousuf Ortiz MD Status: REG CLI Study: OB Limited With Biometrics Date of Exam: 11/02 Exam# [id number] Ordering Dr: Sheyla Small DO PROCEDURE: OB [...] due date December 19, 2024 Reading [facility] CC: Dr. oYusuf Ortiz MD; Dr. Sheyla Small DO Associate Professor Computer Science: Signed Normal [facility] Laboratory - Chemistry and C hemistry - challengeOrdered By: Sheyla Polk on 10-28-2024 Glucose Ql (U) Negative [facility] Laboratory - UrinalysisOrder ed By: Sheyla Polk on 10-28-2024 Protein Ql (U) Negative [facility] Sole Trimmer Office Visit Reporton 10-28-2024 Sole Trimmer Office Visit Report [facility] [address], [address] [place] [address] OFFICE VISIT Date of Service: 10/28/24 MR#: [id number] Acct: [id number] Name: BRIGID BELLA Rep #: [id number] : 1985 Provider: Dr. 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 Date Name GA/Weeks Outcome Route Bth Weight Gen Labor Lgth Anesthesia Del Locatn Provider FOB Unknown 01/08/20 Ramey 40 live - full term 7# 10oz Male 12 hour s none [place] Dr. Ibeth Carlos 06/17/22 Embudo 40 live - full term 8lbs 1oz Male none [facility] Danuta Carlos Delivery Date: 06/17/22 Last Updated [...] St Vi (more content not included)... Normal [facility] Laboratory - Chemistry and C hemistry - challengeOrdered By: Sheyla Polk on 10-12-2024 Glucose Ql (U) Negative [facility] Laboratory - UrinalysisOrder ed By: Sheyla Polk on 10-12-2024 Protein Ql (U) Negative [facility] Sole Trimmer Office Visit Reporton 10-12-2024 Sole Trimmer Office Visit Report [facility] [address], [address] [place] [address] OFFICE VISIT Date of Service: 10/12/24 MR#: [id number] Acct: [id number] Name: BRIGID BELLA Rep #: [id number] : 1985 Provider: Dr. 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 Date Name GA/Weeks Outcome Route Bth Weight Gen Labor Lgth Anesthesia Del Locatn Provider FOB Unknown 01/08/20 Ramey 40 live - full term 7# 10oz Male 12 hour s none [place], [place] Dr. Ibeth Carlos 06/17/22 Embudo 40 live - full term 8lbs 1oz Male none [facility] roger [facility] Terrance Delivery [...] St Visi (more content not included)... Normal [facility] Laboratory - Chemistry and C hemistry - challengeOrdered By: Radha Valverde on 09-29-2024 Glucose Ql (U) Negative [facility] Laboratory - UrinalysisOrder ed By: Radha Valverde on 09-29-2024 Protein Ql (U) Negative [facility] Sole Trimmer Office Visit Reporton 09-29-2024 Sole Trimmer Office Visit Report [facility] [address], [address] [place] [address] OFFICE VISIT Date of Service: 09/29/24 MR#: [id number] Acct: [id number] Name: BRIGID BELLA Rep #: [id number] : 1985 Provider: LIMA Gusman ams Age/Sex: 39/F Location[place] [facility] [place] Status: Signed Intake Vital Signs 08/03/24 08:30 08/03/24 08:46 08/31/24 09:09 09/29/24 15:15 Height 5 ft 5 in 5 ft 5 in 5 ft 5 in 5 ft 5 in Weight: 164 lb 2 oz BMI 27.3 BP 107/74 Intake Visit Reasons: 30wk ob Chief Complaint: 30wk OB Algology Teacher Required: No Is patient in pain?: [...] umbilical cord Supervision of normal Surgical History Partridge teeth extracted No pertinent past surgical history [...] current occupational 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 Date Name GA/Weeks Outcome Route Bth Weight Gen Labor Lgth Anesthesia Del Locatn Provider FOB Unknown 01/08/20 John 40 live - full term 7# 10oz Male 12 hour s none [place], [place] Dr. Ibeth Carlos 06/17/22 Kevin 40 live - full term 8lbs 1oz Male none [facility] roger Murray CNM Terrance Delivery Date: [...] ??-???-???-???-???-??? -??? (more content not included)... Normal [facility] Absolute lymphocyte countOrd ered By: Micaela Peterson on 08-31-2024 Lymphocytes Auto (Unsp spec) [#/Vol] 2.06 10*3/uL 0.83-4.51 [facility] Absolute neutrophil countOrd ered By: Micaela Peterson on 08-31-2024 Neutrophils (Bld) [#/Vol] 7.9 10*3/uL High 2.0-7.7 [facility] Automated lymphocyte count a s percentage of total leukocytesOrdered By: Micaela Peterson on 08-31-2024 Lymphocytes/100 WBC Auto (Unsp spec) 18.9 % Low 19-41 [facility] Basophil percentageOrdered B y: Micaela Peterson on 08-31-2024 Basophils/100 WBC (Bld) 0.4 % 0-1 [facility] CBC W/Diff, Automatedon 08-04-2024 Absolute Lymph 2.06 X10 3/uL Normal 0.83-4.51 [facility] Comment on above: Performed By: #### L 100.0100, L509.8002, L501.0250, L3890.6006 ####[facility] [address] [place], [address] Absolute Neut 7.9 X10 3/uL High 2.0-7.7 [facility] Comment on above: Performed By: #### L 100.0100, L509.8002, L501.0250, L3890.6006 ####[facility] [address] [place], [address] Basophils/100 WBC (Bld) 0.4 % Normal 0-1 [facility] Comment on above: Performed By: #### L 100.0100, L509.8002, L501.0250, L3890.6006 ####[facility] [address] [place], [address] Eosinophils/100 WBC (Bld) 1.0 % Normal 0-5 [facility] Comment on above: Performed By: #### L 100.0100, L509.8002, L501.0250, L3890.6006 ####[facility] [address] [place], [address] Erythrocyte distribution width (RBC) [Ratio] 12.5 % Normal 11.6-14.6 [facility] Comment on above: Performed By: #### L 100.0100, L509.8002, L501.0250, L3890.6006 ####[facility] [address] [place], [address] Hematocrit (Bld) [Volume fraction] 35.2 % Low 37-47 [facility] Comment on above: Performed By: #### L 100.0100, L509.8002, L501.0250, L3890.6006 ####[facility] [address] [place], [address] Hemoglobin (Bld) [Mass/Vol] 11.5 g/dL Low 12.0-15.0 [facility] Comment on above: Performed By: #### L 100.0100, L509.8002, L501.0250, L3890.6006 ####[facility] [address] [place], [address] IG% 0.600 Normal 0.0-0.9 [facility] Comment on above: Result Comment: IG% - Immature Granulocytes (promyelocytes, myelocytes and metamyelocytes) > 1% indicates that a LEFT SHIFT is Present. Performed By: #### L 100.0100, L509.8002, L501.0250, L3890.6006 ####[facility] [address] [place], [address] Lymphocytes/100 WBC (Bld) 18.9 % Low 19-41 [facility] Comment on above: Performed By: #### L 100.0100, L509.8002, L501.0250, L3890.6006 ####[facility] [address] [place], [address] MCH (RBC) [Entitic mass] 30.3 pg Normal 27.0-32.0 [facility] Comment on above: Performed By: #### L 100.0100, L509.8002, L501.0250, L3890.6006 ####[facility] [address] [place], [address] MCHC (RBC) [Mass/Vol] 32.7 g/dL Normal 32-36 [facility] Comment on above: Performed By: #### L 100.0100, L509.8002, L501.0250, L3890.6006 ####[facility] [address] [place], [address] MCV (RBC) [Entitic vol] 92.9 fL Normal 81-99 [facility] Comment on above: Performed By: #### L 100.0100, L509.8002, L501.0250, L3890.6006 ####[facility] [address] [place], [address] Monocytes/100 WBC (Bld) 6.7 % Normal 0-10 [facility] Comment on above: Performed By: #### L 100.0100, L509.8002, L501.0250, L3890.6006 ####[facility] [address] [place], [address] Neutrophils/100 WBC (Bld) 72.4 % High 47-70 [facility] Comment on above: Performed By: #### L 100.0100, L509.8002, L501.0250, L3890.6006 ####[facility] [address] [place], [address] Nucleated RBC (Bld) [#/Vol] 0 10*3/uL Normal 0-5 [facility] Comment on above: Performed By: #### L 100.0100, L509.8002, L501.0250, L3890.6006 ####[facility] [address] [place], [address] Platelet mean volume (Bld) [Entitic vol] 12.0 fL Normal 6.2-12.0 [facility] Comment on above: Performed By: #### L 100.0100, L509.8002, L501.0250, L3890.6006 ####[facility] [address] [place], [address] Platelets (Bld) [#/Vol] 260 10*3/uL Normal 150-450 [facility] Comment on above: Performed By: #### L 100.0100, L509.8002, L501.0250, L3890.6006 ####[facility] [address] [place], [address] RBC (Bld) [#/Vol] 3.79 10*6/uL Low 4.2-5.4 [facility] Comment on above: Performed By: #### L 100.0100, L509.8002, L501.0250, L3890.6006 ####[facility] [address] [place], [address] RDW SD 42.7 fl Normal 35.1-43.9 [facility] Comment on above: Performed By: #### L 100.0100, L509.8002, L501.0250, L3890.6006 ####[facility] [address] [place], [address] WBC (Bld) [#/Vol] 10.9 10*3/uL Normal 4.4-11.0 [facility] Comment on above: Performed By: #### L 100.0100, L509.8002, L501.0250, L3890.6006 ####[facility] [address] [place], [place], [address] Eosinophil percentageOrdered By: Micaela Peterson on 08-31-2024 Eosinophils/100 WBC (Bld) 1.0 % 0-5 [facility] Erythrocyte distribution wid th ratioOrdered By: Micaela Kristen on 08-31-2024 Erythrocyte distribution width (RBC) [Ratio] 12.5 % 11.6-14.6 [facility] Erythrocyte distribution wid th standard deviationOrdered By: Micaela Kristen on 08-31-2024 Erythrocyte distribution width (RBC) [Ratio] 42.7 fl 35.1-43.9 [facility] Glucose Challenge Gest 1H 50 irma 08-31-2024 GLU GEST 50g 1H 84 mg/dL Normal 70-140 [facility] Comment on above: Performed By: #### L 100.0100, L509.8002, L501.0250, L3890.6006 ####[facility] [address] [place], [place], [id number] Glucose measurement at 2 dillon rs post-dose gestational glucose tolerance testOrdered By: Micaela Peterson on 08-31-2024 Glucose [Mass/Vol] 84 mg/dL 70-140 [facility] HIVon 08-31-2024 HIV Non-Reactive Normal Nonreactive [facility] Comment on above: Result Comment: Non- Reactive Reactive Repeatedly reactive samples must be confirmed according to CDC recommended confirmatory algorithms. The subresults for either HIVAG or AHIV can be used as an aid in the selection of the confirmation algorithm for reactive samples. Send out specimens with Reactive results to [facility] for confirmation. Order the HIV antibody detection and differentiation: lc#[id number] Performed By: #### L 100.0100, L509.8002, L501.0250, L3890.6006 ####[facility] [address] [place], [address] Hematocrit Auto (Bld) [Volum e fraction]Ordered By: Micaela Peterson on 08-31-2024 Hematocrit (Bld) [Volume fraction] 35.2 % Low 37-47 [facility] Hemoglobin measurementOrdere d By: Micaela Peterson on 08-31-2024 Hemoglobin (Bld) [Mass/Vol] 11.5 g/dL Low 12.0-15.0 [facility] Immature granulocytes/100 WB C Auto (Bld)Ordered By: Micaela Peterson on 08-31-2024 Immature granulocytes/100 WBC (Bld) 0.600 % 0.0-0.9 [facility] Comment on above: IG% - Immature Granu locytes (promyelocytes, myelocytes and metamyelocytes) > 1% indicates that a LEFT SHIFT is Present. Laboratory - Chemistry and C hemistry - challengeOrdered By: Linda Mcconnell on 08-31-2024 Glucose Ql (U) Negative [facility] Laboratory - UrinalysisOrder ed By: Linda Mcconnell on 08-31-2024 Protein Ql (U) Negative [facility] MCV (mean corpuscular volume ) determinationOrdered By: Micaela Peterson on 08-31-2024 MCV (RBC) [Entitic vol] 92.9 fL 81-99 [facility] Mean corpuscular hemoglobin (MCH) determinationOrdered By: Micaela Peterson on 08-31-2024 MCH (RBC) [Entitic mass] 30.3 pg 27.0-32.0 [facility] Mean corpuscular hemoglobin concentration (MCHC) determinationOrdered By: Micaela Peterson on 08-31-2024 MCHC (RBC) [Mass/Vol] 32.7 g/dL 32-36 [facility] Mean platelet volume determi nationOrdered By: Micaela Peterson on 08-31-2024 Platelet mean volume (Bld) [Entitic vol] 12.0 fL 6.2-12.0 [facility] Monocyte percentageOrdered B y: Micaela Peterson on 08-31-2024 Monocytes/100 WBC (Bld) 6.7 % 0-10 [facility] Neutrophil percentageOrdered By: Micaela Peterson on 08-31-2024 Neutrophils/100 WBC (Bld) 72.4 % High 47-70 [facility] No Panel InformationOrdered By: Micaela Peterson on 08-31-2024 HIV (1&2) Antibody Non-Reactive Nonreactive [facility] Comment on above: Non-ReactiveReactive Repeatedly reactive samples must be confirmed according to CDC recommended confirmatory algorithms. The subresults for either HIVAG or AHIV can be used as an aid in the selection of the confirmation algorithm for reactive samples.Send out specimens with Reactive results to [facility] for confirmation.Order the HIV antibody detection and differentiation: #[id number] Nucleated red blood cell per centageOrdered By: Micaela Peterson on 08-31-2024 Nucleated RBC/100 WBC (Bld) [Ratio] 0 % 0-5 [facility] Sole Trimmer Office Visit Reporton 08-31-2024 Sole Trimmer Office Visit Report [facility] [address], [address] [place] [address] OFFICE VISIT Date of Service: 08/31/24 MR#: [id number] Acct: [id number] Name: BRIGID BELLA Rep #: [id number] : 1985 Provider: Dr. 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 Date Name GA/Weeks Outcome Route Bth Weight Infant Gen Labor Lgth Anesthesia Del Locatn Provider FOB Unknown 01/08/20 John 40 live - full term 7# 10oz Male 12 hour s none [place], [place] Dr. Ibeth Carlos 06/17/22 Kevin 40 live - full term 8lbs 1oz Male none [facility] Danuta LEE Terrance Delivery Date: 06/17/22 Last [...] -???-???-???-???-???-? ??-???-?? (more content not included)... Normal [facility] Platelet countOrdered By: Cas Peterson on 08-31-2024 Platelets (Bld) [#/Vol] 260 10*3/uL 150-450 [facility] RBC Auto (Bld) [#/Vol]Ordere d By: Micaela Peterson on 08-31-2024 RBC (Bld) [#/Vol] 3.79 10*6/uL Low 4.2-5.4 [facility] Syphilis Antibodieson 2024 Syphilis Abs Non-Reactive Normal Nonreactive [facility] Comment on above: Performed By: #### L 100.0100, L509.8002, L501.0250, L3890.6006 ####[facility] [address] [place], [address] White blood cell (WBC) count Ordered By: Micaela Peterson on 08-31-2024 WBC (Bld) [#/Vol] 10.9 10*3/uL 4.4-11.0 [facility] Laboratory - Chemistry and C hemistry - challengeOrdered By: Micaela Peterson on 08-03-2024 Glucose Ql (U) Negative [facility] Laboratory - UrinalysisOrder ed By: Micaela Peterson on 08-03-2024 Protein Ql (U) Negative [facility] Sole Trimmer Office Visit Reporton 08-03-2024 Sole Trimmer Office Visit Report [facility] [address], [address] [place] [address] OFFICE VISIT Date of Service: 08/03/24 MR#: [id number] Acct: [id number] Name: BRIGID BELLA Rep #: [id number] : 1985 Provider: ISHAN mcdonald Age/Sex: 39/F [place] [facility] [place] Status: Signed Intake Vital Signs 06/03/24 11:26 07/05/24 15:41 08/03/24 08:30 Height 5 ft 5 in 5 ft 5 in 5 ft 5 in Weight: 152 lb BMI 25.2 BP 102/64 Intake Visit Reasons: 21 wk ob Chief Complaint: 21 Week OB Algology Teacher Required: No Is patient in pain?: [...] umbilical cord Supervision of normal Surgical History Partridge teeth extracted No pertinent past surgical history [...] 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 occupational 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 Date Name GA/Weeks Outcome Route Bth Weight Infant Gen Labor Lgth Anesthesia Del Locatn Provider FOB Unknown 01/08/20 John 40 live - full term 7# 10oz Male 12 hour s none [place] Dr. Ibeth Carlos 06/17/22 Kevin 40 live - full term 8lbs 1oz Male none [facility] Terrance Delivery [...] Note 0 (more content not included)... Normal [facility] Laboratory - Chemistry and C hemistry - challengeOrdered By: Sheyla Polk on 07-05-2024 Glucose Ql (U) Negative [facility] Laboratory - UrinalysisOrder ed By: Sheyla Polk on 07-05-2024 Protein Ql (U) Negative [facility] Sole Trimmer Office Visit Reporton 07-05-2024 Sole Trimmer Office Visit Report [facility] [address] [place] [address], [address] [place] [address] OFFICE VISIT Date of Service: 07/05/24 MR#: [id number] Acct: [id number] Name: BRIGID BELLA Rep #: [id number] : 1985 Provider: Dr. 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 Date Name GA/Weeks Outcome Route Bth Weight Gen Labor Lgth Anesthesia Del Locatn Provider FOB Unknown 01/08/20 Ramey 40 live - full term 7# 10oz Male 12 hour s none [place] Dr. Ibeth Carlos 06/17/22 Embudo 40 live - full term 8lbs 1oz Male none [facility] [place] [facility] Delivery Date: 06/17/22 Last Updated by: Diandra [...] Visit Note (more content not included)... Normal [facility] Chlamydia/GC SINA aptimaon CHLAMY,NUC ACID Negative Normal Negative [facility] Comment on above: Performed By: #### M 100.2200, L7000.1800 #### [facility] [address] [place], [place], [address] GC BY NUC ACID Negative Normal Negative [facility] Comment on above: Result Comment: Perf ormed at: =G - [facility] [address] [id number] Traffic Operator: Maya Barrett MD, Phone: [phone] Performed By: #### M 100.2200, L7000.1800 #### [facility] [address] [place], [address] HIV - WCHon 06-04-2024 HIV Non-Reactive Normal Nonreactive [facility] Comment on above: Order Comment: Reaso n for Exam: Performed By: #### L 3890.6005, L509.8000, BTS, L3890.6100, L3890.6300, L100.0100, L509.4005, L900.0098 ####[facility] [address] [place], [place], [address] Hepatitis B Surface Antigeno n 06-04-2024 HEP B Surf Ag Non-Reactive Normal Nonreactive [facility] Comment on above: Order Comment: Reaso n for Exam: Performed By: #### L 3890.6005, L509.8000, BTS, L3890.6100, L3890.6300, L100.0100, L509.4005, L900.0098 ####[facility] [address] [place], [address] Hepatitis C Antibodyon 06-04 Hepatitis C AB Non-Reactive Normal Nonreactive [facility] Comment on above: Order Comment: Reaso n for Exam: Result Comment: Non Reactive: < 0.8 Equivocal: >/= 0.8 to < 1.0 Reactive: >/= 1.0 The [facility] requires that a reactive/equivocal HCV antibody result be sent out for confirmation. HCV Quant by PCR testing. Performed By: #### L 3890.6005, L509.8000, BTS, L3890.6100, L3890.6300, L100.0100, L509.4005, L900.0098 ####[facility] [address] [place], [address] L509.8000on 06-04-2024 Syphilis Abs Non-Reactive Normal [facility] Comment on above: Order Comment: Reaso n for Exam: Performed By: #### L 3890.6005, L509.8000, BTS, L3890.6100, L3890.6300, L100.0100, L509.4005, L900.0098 ####[facility] [address] [facility] [place], [address] Rubella IgGon 06-04-2024 Rubella IgG Reactive Normal Nonreactive [facility] Comment on above: Order Comment: Reaso n for Exam: Result Comment: Anti body Results Interpretation of Immune Status Non Reactive Presumed Non-Immune Equivocal Equivocal Reactive Presumed Immune Performed By: #### L 3890.6005, L509.8000, BTS, L3890.6100, L3890.6300, L100.0100, L509.4005, L900.0098 ####[facility] [address] [place], [address] Urine Cultureon 06-04-2024 URC Culture exhibits no growth. Normal [facility] Comment on above: Performed By: #### M 100.2200, L7000.1800 #### [facility] [address] [place], [address] Absolute lymphocyte countOrd ered By: Trish Murray on 06-03-2024 Lymphocytes Auto (Unsp spec) [#/Vol] 2.33 10*3/uL 0.83-4.51 [facility] Absolute neutrophil countOrd ered By: Trish Murray on 06-03-2024 Neutrophils (Bld) [#/Vol] 8.5 10*3/uL High 2.0-7.7 [facility] Automated lymphocyte count a s percentage of total leukocytesOrdered By: Trish Murrya on 06-03-2024 Lymphocytes/100 WBC Auto (Unsp spec) 20.1 % 19-41 [facility] Basophil percentageOrdered B y: Trish Murray on 06-03-2024 Basophils/100 WBC (Bld) 0.3 % 0-1 [facility] CBC W/Diff, Automatedon 05-06 Absolute Lymph 2.33 X10 3/uL Normal 0.83-4.51 [facility] Comment on above: Performed By: #### L 3890.6005, L509.8000, BTS, L3890.6100, L3890.6300, L100.0100, L509.4005, L900.0098 ####[facility] [address] [place], [address] Absolute Neut 8.5 X10 3/uL High 2.0-7.7 [facility] Comment on above: Performed By: #### L 3890.6005, L509.8000, BTS, L3890.6100, L3890.6300, L100.0100, L509.4005, L900.0098 ####[facility] [address] [place], [address] Basophils/100 WBC (Bld) 0.3 % Normal 0-1 [facility] Comment on above: Performed By: #### L 3890.6005, L509.8000, BTS, L3890.6100, L3890.6300, L100.0100, L509.4005, L900.0098 ####[facility] [address] [place], [address] Eosinophils/100 WBC (Bld) 0.6 % Normal 0-5 [facility] Comment on above: Performed By: #### L 3890.6005, L509.8000, BTS, L3890.6100, L3890.6300, L100.0100, L509.4005, L900.0098 ####[facility] [address] [place], [address] Erythrocyte distribution width (RBC) [Ratio] 13.3 % Normal 11.6-14.6 [facility] Comment on above: Performed By: #### L 3890.6005, L509.8000, BTS, L3890.6100, L3890.6300, L100.0100, L509.4005, L900.0098 ####[facility] [address] [place], [address] Hematocrit (Bld) [Volume fraction] 36.7 % Low 37-47 [facility] Comment on above: Performed By: #### L 3890.6005, L509.8000, BTS, L3890.6100, L3890.6300, L100.0100, L509.4005, L900.0098 ####[facility] [address] [place], [address] Hemoglobin (Bld) [Mass/Vol] 12.1 g/dL Normal 12.0-15.0 [facility] Comment on above: Performed By: #### L 3890.6005, L509.8000, BTS, L3890.6100, L3890.6300, L100.0100, L509.4005, L900.0098 ####[facility] [address] [place], [address] IG% 0.300 Normal 0.0-0.9 [facility] Comment on above: Result Comment: IG% - Immature Granulocytes (promyelocytes, myelocytes and metamyelocytes) > 1% indicates that a LEFT SHIFT is Present. Performed By: #### L 3890.6005, L509.8000, BTS, L3890.6100, L3890.6300, L100.0100, L509.4005, L900.0098 ####[facility] [address] [place], [address] Lymphocytes/100 WBC (Bld) 20.1 % Normal 19-41 [facility] Comment on above: Performed By: #### L 3890.6005, L509.8000, BTS, L3890.6100, L3890.6300, L100.0100, L509.4005, L900.0098 ####[facility] [address] [place], [address] MCH (RBC) [Entitic mass] 29.4 pg Normal 27.0-32.0 [facility] Comment on above: Performed By: #### L 3890.6005, L509.8000, BTS, L3890.6100, L3890.6300, L100.0100, L509.4005, L900.0098 ####[facility] [address] [place], [address] MCHC (RBC) [Mass/Vol] 33.0 g/dL Normal 32-36 [facility] Comment on above: Performed By: #### L 3890.6005, L509.8000, BTS, L3890.6100, L3890.6300, L100.0100, L509.4005, L900.0098 ####[facility] [address] [place], [address] MCV (RBC) [Entitic vol] 89.1 fL Normal 81-99 [facility] Comment on above: Performed By: #### L 3890.6005, L509.8000, BTS, L3890.6100, L3890.6300, L100.0100, L509.4005, L900.0098 ####[facility] [address] [place], [address] Monocytes/100 WBC (Bld) 5.5 % Normal 0-10 [facility] Comment on above: Performed By: #### L 3890.6005, L509.8000, BTS, L3890.6100, L3890.6300, L100.0100, L509.4005, L900.0098 ####[facility] [address] [place], [address] Neutrophils/100 WBC (Bld) 73.2 % High 47-70 [facility] Comment on above: Performed By: #### L 3890.6005, L509.8000, BTS, L3890.6100, L3890.6300, L100.0100, L509.4005, L900.0098 ####[facility] [address] [place], [address] Nucleated RBC (Bld) [#/Vol] 0 10*3/uL Normal 0-5 [facility] Comment on above: Performed By: #### L 3890.6005, L509.8000, BTS, L3890.6100, L3890.6300, L100.0100, L509.4005, L900.0098 ####[facility] [address] [place], [address] Platelet mean volume (Bld) [Entitic vol] 11.1 fL Normal 6.2-12.0 [facility] Comment on above: Performed By: #### L 3890.6005, L509.8000, BTS, L3890.6100, L3890.6300, L100.0100, L509.4005, L900.0098 ####[facility] [address] [place], [address] Platelets (Bld) [#/Vol] 309 10*3/uL Normal 150-450 [facility] Comment on above: Performed By: #### L 3890.6005, L509.8000, BTS, L3890.6100, L3890.6300, L100.0100, L509.4005, L900.0098 ####[facility] [address] [place], [address] RBC (Bld) [#/Vol] 4.12 10*6/uL Low 4.2-5.4 [facility] Comment on above: Performed By: #### L 3890.6005, L509.8000, BTS, L3890.6100, L3890.6300, L100.0100, L509.4005, L900.0098 ####[facility] [address] [place], [address] RDW SD 43.8 fl Normal 35.1-43.9 [facility] Comment on above: Performed By: #### L 3890.6005, L509.8000, BTS, L3890.6100, L3890.6300, L100.0100, L509.4005, L900.0098 ####[facility] [address] [place], [address] WBC (Bld) [#/Vol] 11.6 10*3/uL High 4.4-11.0 [facility] Comment on above: Performed By: #### L 3890.6005, L509.8000, BTS, L3890.6100, L3890.6300, L100.0100, L509.4005, L900.0098 ####[facility] [address] [place], [address] Chlamydia trachomatis rRNA d etection by probe and target amplification methodOrdered By: Trish Murray on 06-03-2024 C. trachomatis rRNA SINA+probe Ql (Unsp spec) Negative Negative [facility] Eosinophil percentageOrdered By: Trish Murray on 06-03-2024 Eosinophils/100 WBC (Bld) 0.6 % 0-5 [facility] Erythrocyte distribution wid th ratioOrdered By: Trishmiguel Murray on 06-03-2024 Erythrocyte distribution width (RBC) [Ratio] 13.3 % 11.6-14.6 [facility] Erythrocyte distribution wid th standard deviationOrdered By: Trish Murray on 06-03-2024 Erythrocyte distribution width (RBC) [Ratio] 43.8 fl 35.1-43.9 [facility] HIV 1 and HIV-2 antibody ass ay with HIV-1 p24 antigen detectionOrdered By: Trish Murray on 06-03-2024 HIV 1+2 Ab+HIV1 p24 Ag IA Ql Non-Reactive Nonreactive [facility] Hematocrit Auto (Bld) [Volum e fraction]Ordered By: Trish Murray on 06-03-2024 Hematocrit (Bld) [Volume fraction] 36.7 % Low 37-47 [facility] Hemoglobin measurementOrdere d By: Trish Murray on 06-03-2024 Hemoglobin (Bld) [Mass/Vol] 12.1 g/dL 12.0-15.0 [facility] Immature granulocytes/100 WB C Auto (Bld)Ordered By: Trish Murray on 06-03-2024 Immature granulocytes/100 WBC (Bld) 0.300 % 0.0-0.9 [facility] Comment on above: IG% - Immature Granu locytes (promyelocytes, myelocytes and metamyelocytes) > 1% indicates that a LEFT SHIFT is Present. MCV (mean corpuscular volume ) determinationOrdered By: Trish Murray on 06-03-2024 MCV (RBC) [Entitic vol] 89.1 fL 81-99 [facility] Mean corpuscular hemoglobin (MCH) determinationOrdered By: Trish Murray on 06-03-2024 MCH (RBC) [Entitic mass] 29.4 pg 27.0-32.0 [facility] Mean corpuscular hemoglobin concentration (MCHC) determinationOrdered By: Trish Murray on 06-03-2024 MCHC (RBC) [Mass/Vol] 33.0 g/dL 32-36 [facility] Mean platelet volume determi nationOrdered By: Trish Murray on 06-03-2024 Platelet mean volume (Bld) [Entitic vol] 11.1 fL 6.2-12.0 [facility] Monocyte percentageOrdered B y: Trish Murray on 06-03-2024 Monocytes/100 WBC (Bld) 5.5 % 0-10 [facility] NATERAon 06-03-2024 NATURA SEE SCANNED REPORT Normal [facility] Comment on above: Order Comment: Comme nts: NIPT WITHOUT GENDER Performed By: #### L 3890.6005, L509.8000, BTS, L3890.6100, L3890.6300, L100.0100, L509.4005, L900.0098 ####[facility] [address] [place], [place], [id number] Neisseria gonorrhoeae nuclei c acid detection by amplified probe techniqueOrdered By: Trish Murray on 06-03-2024 N. gonorrhoeae DNA SINA+probe Ql (Unsp spec) Negative Negative [facility] Comment on above: Performed at: =[facility] [address]za[facility] [facility] [place] [id number] Director: Maya Barrett MD, Phone: [phone] Neutrophil percentageOrdered By: Trish Murray on 06-03-2024 Neutrophils/100 WBC (Bld) 73.2 % High 47-70 [facility] Nucleated red blood cell per centageOrdered By: Trish Murray on 06-03-2024 Nucleated RBC/100 WBC (Bld) [Ratio] 0 % 0-5 [facility] Sole Trimmer Office Visit Reporton 06-03-2024 Sole Trimmer Office Visit Report [facility] [address], [address] [place] [address] OFFICE VISIT Date of Service: 06/03/24 MR#: [id number] Acct: [id number] Name: BRIGID BELLA Rep #: [id number] : 1985 Provider: LIMA holman Age/Sex: 39/F [place] [facility] [place]: Signed Intake Vital Signs 02/24/24 08:27 05/03/24 10:41 06/03/24 11:26 Height 5 ft 5 in 5 ft 5 in Weight: 142 lb BMI 23.6 BP 113/76 Intake Visit Reasons: New OB, LMP 03/03/24, JAZMIN 12/08/24 Algology Teacher Required: No Is patient in pain?: [...] umbilical cord Supervision of normal Surgical History Partridge teeth extracted No pertinent past surgical history [...] current occupational 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 Date Name GA/Weeks Outcome Route Bth Weight Gen Labor Lgth Anesthesia Del Locatn Provider FOB Unknown 01/08/20 Ramey 40 live - full term 7# 10oz Male 12 hour s none [place], [place] Dr. Ibeth Carlos 06/17/22 Embudo 40 live - full term 8lbs 1oz Male none [facility] Terrance Delivery Date: 06/17/22 Last Updated by: [...] -???-???-???-???-???-? ??-???-???-?? (more content not included)... Normal [facility] Platelet countOrdered By: Danuta Murray on 06-03-2024 Platelets (Bld) [#/Vol] 309 10*3/uL 150-450 [facility] RBC Auto (Bld) [#/Vol]Ordere d By: Trish Murray on 06-03-2024 RBC (Bld) [#/Vol] 4.12 10*6/uL Low 4.2-5.4 [facility] Serum Treponema species anti body detectionOrdered By: Trish Murray on 06-03-2024 Treponema sp Ab Ql (S) Non-Reactive [facility] Type AND Screenon 06-03-2024 Ab SCREEN GEL Negative Normal [facility] Comment on above: Order Comment: PN Performed By: #### L 3890.6005, L509.8000, BTS, L3890.6100, L3890.6300, L100.0100, L509.4005, L900.0098 ####[facility] [address] [place], [place], [address] Urine cultureOrdered By: Jossy Murray on 06-03-2024 Bacteria identified Cx Nom (U) Culture exhibits no growth. [facility] White blood cell (WBC) count Ordered By: Trishmuriel Murray on 06-03-2024 WBC (Bld) [#/Vol] 11.6 10*3/uL High 4.4-11.0 [facility] Thyroidon 03-09-2024 Thyroid [facility] [address] [place] [address] Thyroid MR#: [id number] Acct: [id number] Name: BRIGID BELLA Rep #: [id number] : 1985 F 38 From: Santo acosta MD PCP: Dr. Yousuf Ortiz MD Status: [facility] Study: Thyroid Date of Exam: 03/09/24 Exam# [id number] Ordering Dr: Yousuf Ortiz MD [id number] STUDY: THYROID ULTRASOUND REASON FOR EXAM: Female, [...] EST , CC: Dr. 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, [address] Absolute Neut 3.3 X10 3/uL Normal 2.0-7.7 [facility] Comment on above: Performed By: #### L 100.0100, L503.0105, L506.0400, L501.9186, L500.4050, L500.4100, L506.1000, L501.9520 #### [facility] [address] [place], [address] Basophils/100 WBC (Bld) 0.8 % Normal 0-1 [facility] Comment on above: Performed By: #### L 100.0100, L503.0105, L506.0400, L501.9186, L500.4050, L500.4100, L506.1000, L501.9520 #### [facility] [address] [place], [address] Eosinophils/100 WBC (Bld) 1.8 % Normal 0-5 [facility] Comment on above: Performed By: #### L 100.0100, L503.0105, L506.0400, L501.9186, L500.4050, L500.4100, L506.1000, L501.9520 #### [facility] [address] [place] [place], [address] Erythrocyte distribution width (RBC) [Ratio] 12.9 % Normal 11.6-14.6 [facility] Comment on above: Performed By: #### L 100.0100, L503.0105, L506.0400, L501.9186, L500.4050, L500.4100, L506.1000, L501.9520 #### [facility] [address] [place], [address] Hematocrit (Bld) [Volume fraction] 40.4 % Normal 37-47 [facility] Comment on above: Performed By: #### L 100.0100, L503.0105, L506.0400, L501.9186, L500.4050, L500.4100, L506.1000, L501.9520 #### [facility] [address] [place], [address] Hemoglobin (Bld) [Mass/Vol] 12.8 g/dL Normal 12.0-15.0 [facility] Comment on above: Performed By: #### L 100.0100, L503.0105, L506.0400, L501.9186, L500.4050, L500.4100, L506.1000, L501.9520 #### [facility] [address] [place], [address] IG% 0.200 Normal 0.0-0.9 [facility] Comment on above: Result Comment: IG% - Immature Granulocytes (promyelocytes, myelocytes and metamyelocytes) > 1% indicates that a LEFT SHIFT is Present. Performed By: #### L 100.0100, L503.0105, L506.0400, L501.9186, L500.4050, L500.4100, L506.1000, L501.9520 #### [facility] [address] [place], [address] Lymphocytes/100 WBC (Bld) 39.3 % Normal 19-41 [facility] Comment on above: Performed By: #### L 100.0100, L503.0105, L506.0400, L501.9186, L500.4050, L500.4100, L506.1000, L501.9520 #### [facility] [address] [place], [address] MCH (RBC) [Entitic mass] 28.5 pg Normal 27.0-32.0 [facility] Comment on above: Performed By: #### L 100.0100, L503.0105, L506.0400, L501.9186, L500.4050, L500.4100, L506.1000, L501.9520 #### [facility] [address] [place], [address] MCHC (RBC) [Mass/Vol] 31.7 g/dL Low 32-36 [facility] Comment on above: Performed By: #### L 100.0100, L503.0105, L506.0400, L501.9186, L500.4050, L500.4100, L506.1000, L501.9520 #### [facility] [address] [place] [place], [address] MCV (RBC) [Entitic vol] 90.0 fL Normal 81-99 [facility] Comment on above: Performed By: #### L 100.0100, L503.0105, L506.0400, L501.9186, L500.4050, L500.4100, L506.1000, L501.9520 #### [facility] [address] [place], [address] Monocytes/100 WBC (Bld) 8.5 % Normal 0-10 [facility] Comment on above: Performed By: #### L 100.0100, L503.0105, L506.0400, L501.9186, L500.4050, L500.4100, L506.1000, L501.9520 #### [facility] [address] [place] [place], [address] Neutrophils/100 WBC (Bld) 49.4 % Normal 47-70 [facility] Comment on above: Performed By: #### L 100.0100, L503.0105, L506.0400, L501.9186, L500.4050, L500.4100, L506.1000, L501.9520 #### [facility] [address] [place], [address] Nucleated RBC (Bld) [#/Vol] 0 10*3/uL Normal 0-5 [facility] Comment on above: Performed By: #### L 100.0100, L503.0105, L506.0400, L501.9186, L500.4050, L500.4100, L506.1000, L501.9520 #### [facility] [address] [place], [address] Platelet mean volume (Bld) [Entitic vol] 11.9 fL Normal 6.2-12.0 [facility] Comment on above: Performed By: #### L 100.0100, L503.0105, L506.0400, L501.9186, L500.4050, L500.4100, L506.1000, L501.9520 #### [facility] [address] [place], [address] Platelets (Bld) [#/Vol] 296 10*3/uL Normal 150-450 [facility] Comment on above: Performed By: #### L 100.0100, L503.0105, L506.0400, L501.9186, L500.4050, L500.4100, L506.1000, L501.9520 #### [facility] [address] [place], [address] RBC (Bld) [#/Vol] 4.49 10*6/uL Normal 4.2-5.4 [facility] Comment on above: Performed By: #### L 100.0100, L503.0105, L506.0400, L501.9186, L500.4050, L500.4100, L506.1000, L501.9520 #### [facility] [address] [place], [place], [id number] RDW SD 43.0 fl Normal 35.1-43.9 [facility] Comment on above: Performed By: #### L 100.0100, L503.0105, L506.0400, L501.9186, L500.4050, L500.4100, L506.1000, L501.9520 #### [facility] [address] [place], [address] WBC (Bld) [#/Vol] 6.6 10*3/uL Normal 4.4-11.0 [facility] Comment on above: Performed By: #### L 100.0100, L503.0105, L506.0400, L501.9186, L500.4050, L500.4100, L506.1000, L501.9520 #### [facility] [address] [place], [place], [id number] Comprehensive Metabolic Prof [facility] 02-24-2024 Albumin [Mass/Vol] 4.3 g/dL Normal 3.2-5.0 [facility] Comment on above: Performed By: #### L 100.0100, L503.0105, L506.0400, L501.9186, L500.4050, L500.4100, L506.1000, L501.9520 ####[facility] [address] [place], [place], [id number] Albumin/Globulin [Mass ratio] 1.2 {ratio} Normal 0.9-2.4 [facility] Comment on above: Performed By: #### L 100.0100, L503.0105, L506.0400, L501.9186, L500.4050, L500.4100, L506.1000, L501.9520 ####[facility] [address] [place], [place], [phone] ALK P 42 U/L Low 45-117 [facility] Comment on above: Performed By: #### L 100.0100, L503.0105, L506.0400, L501.9186, L500.4050, L500.4100, L506.1000, L501.9520 ####[facility] [address] [place], [place], [phone] ALT [Catalytic activity/Vol] 23 U/L Normal 13-56 [facility] Comment on above: Performed By: #### L 100.0100, L503.0105, L506.0400, L501.9186, L500.4050, L500.4100, L506.1000, L501.9520 ####[facility] [address] [place], [address] AST [Catalytic activity/Vol] 13 U/L Low 15-37 [facility] Comment on above: Performed By: #### L 100.0100, L503.0105, L506.0400, L501.9186, L500.4050, L500.4100, L506.1000, L501.9520 ####[facility] [address] [place], [address] Bilirubin [Mass/Vol] 0.50 mg/dL Normal 0.20-1.00 [facility] Comment on above: Result Comment: For patients on eltrombopag therapy, use of Dimension [place] TBIL is not recommended. Performed By: #### L 100.0100, L503.0105, L506.0400, L501.9186, L500.4050, L500.4100, L506.1000, L501.9520 ####[facility] [address] [place], [address] BUN/CRE 21.3 RATIO High 10-20 [facility] Comment on above: Performed By: #### L 100.0100, L503.0105, L506.0400, L501.9186, L500.4050, L500.4100, L506.1000, L501.9520 ####[facility] [address] [place], [address] CA,Total 9.3 mg/dL Normal 8.5-10.1 [facility] Comment on above: Performed By: #### L 100.0100, L503.0105, L506.0400, L501.9186, L500.4050, L500.4100, L506.1000, L501.9520 ####[facility] [address] [place], [address] Chloride [Moles/Vol] 107 mmol/L Normal 98-107 [facility] Comment on above: Performed By: #### L 100.0100, L503.0105, L506.0400, L501.9186, L500.4050, L500.4100, L506.1000, L501.9520 ####[facility] [address] [place], [address] CO2 [Moles/Vol] 26.0 mmol/L Normal 21.0-32.0 [facility] Comment on above: Performed By: #### L 100.0100, L503.0105, L506.0400, L501.9186, L500.4050, L500.4100, L506.1000, L501.9520 ####[facility] [address] [place], [address] Creatinine [Mass/Vol] 0.75 mg/dL Normal 0.55-1.02 [facility] Comment on above: Result Comment: The validity of the calculated GFR GFRAA in patients over 70 years has not been determined. Clinical correlation is essential. Performed By: #### L 100.0100, L503.0105, L506.0400, L501.9186, L500.4050, L500.4100, L506.1000, L501.9520 ####[facility] [address] [place], [address] EST GFR - AA 111 mL/min Normal >60 [facility] Comment on above: Result Comment: Afri can Mongolian GFR Calc Performed By: #### L 100.0100, L503.0105, L506.0400, L501.9186, L500.4050, L500.4100, L506.1000, L501.9520 ####[facility] [address] [place], [place], [id number] GAP 4 Low 5-15 [facility] Comment on above: Performed By: #### L 100.0100, L503.0105, L506.0400, L501.9186, L500.4050, L500.4100, L506.1000, L501.9520 ####[facility] [address] [place], [address] GFR/1.73 sq M.predicted among non-blacks MDRD (S/P/Bld) [Vol rate/Area] 92 mL/min/{1.73_m2} Normal >60 [facility] Comment on above: Result Comment: Non- GFR Calc Performed By: #### L 100.0100, L503.0105, L506.0400, L501.9186, L500.4050, L500.4100, L506.1000, L501.9520 ####[facility] [address] [place], [address] Globulin (S) [Mass/Vol] 3.5 g/dL Normal 2.2-4.2 [facility] Comment on above: Performed By: #### L 100.0100, L503.0105, L506.0400, L501.9186, L500.4050, L500.4100, L506.1000, L501.9520 ####[facility] [address] [place], [address] Glucose [Mass/Vol] 89 mg/dL Normal 74-106 [facility] Comment on above: Performed By: #### L 100.0100, L503.0105, L506.0400, L501.9186, L500.4050, L500.4100, L506.1000, L501.9520 ####[facility] [address] [place], [address] Potassium [Moles/Vol] 3.9 mmol/L Normal 3.5-5.1 [facility] Comment on above: Performed By: #### L 100.0100, L503.0105, L506.0400, L501.9186, L500.4050, L500.4100, L506.1000, L501.9520 ####[facility] [address] [place], [address] Sodium [Moles/Vol] 136 mmol/L Normal 136-145 [facility] Comment on above: Performed By: #### L 100.0100, L503.0105, L506.0400, L501.9186, L500.4050, L500.4100, L506.1000, L501.9520 ####[facility] [address] [place], [address] T PROT 7.8 g/dL Normal 6.4-8.2 [facility] Comment on above: Performed By: #### L 100.0100, L503.0105, L506.0400, L501.9186, L500.4050, L500.4100, L506.1000, L501.9520 ####[facility] [address] [place], [address] Urea nitrogen [Mass/Vol] 16 mg/dL Normal 7-18 [facility] Comment on above: Performed By: #### L 100.0100, L503.0105, L506.0400, L501.9186, L500.4050, L500.4100, L506.1000, L501.9520 ####[facility] [address] [place], [address] Lipid Profileon 02-24-2024 Cholesterol [Mass/Vol] 265 mg/dL High 200 [facility] Comment on above: Result Comment: <200 mg/dL Desirable 200-240 mg/dL Borderline >240 mg/dL High Risk Performed By: #### L 100.0100, L503.0105, L506.0400, L501.9186, L500.4050, L500.4100, L506.1000, L501.9520 ####[facility] [address] [place], [address] Cholesterol in HDL [Mass/Vol] 77 mg/dL Normal [facility] Comment on above: Result Comment: The drugs N-Acetylcysteine and Metamizole may falsely depress this assay. Reference Range HDL <40 mg/dL Low HDL Cholesterol HDL >or= 60 mg/dL High HDL Cholesterol Performed By: #### L 100.0100, L503.0105, L506.0400, L501.9186, L500.4050, L500.4100, L506.1000, L501.9520 ####[facility] [address] [place], [address] Cholesterol in LDL [Mass/Vol] 176 mg/dL High 0-130 [facility] Comment on above: Performed By: #### L 100.0100, L503.0105, L506.0400, L501.9186, L500.4050, L500.4100, L506.1000, L501.9520 ####[facility] [address] [place], [place], [phone] Cholesterol in VLDL [Mass/Vol] 12 mg/dL Normal 5-40 [facility] Comment on above: Performed By: #### L 100.0100, L503.0105, L506.0400, L501.9186, L500.4050, L500.4100, L506.1000, L501.9520 ####[facility] [address] [place], [place], [id number] Triglyceride [Mass/Vol] 58 mg/dL Normal [facility] Comment on above: Result Comment: The drugs N-Acetylcysteine and Metamizole may falsely depress this assay. Serum Triglycerides Reference Interval Normal <150 mg/dL Borderline high 150 - 199 mg/dL High 200 - 499 mg/dL Very High > or = 500 mg/dL Performed By: #### L 100.0100, L503.0105, L506.0400, L501.9186, L500.4050, L500.4100, L506.1000, L501.9520 ####[facility] [address] [place], [place], [id number] T3 Total - Triiodothyronineo n 02-24-2024 T3 Total 0.92 ng/mL Normal 0.6-1.81 [facility] Comment on above: Performed By: #### L 100.0100, L503.0105, L506.0400, L501.9186, L500.4050, L500.4100, L506.1000, L501.9520 ####[facility] [address] [place], [place], [phone] T4 Free Directon 02-24-2024 T4 FREE DIRECT 0.77 ng/dL Normal 0.76-1.46 [facility] Comment on above: Performed By: #### L 100.0100, L503.0105, L506.0400, L501.9186, L500.4050, L500.4100, L506.1000, L501.9520 ####[facility] [address] [place], [place], [id number] Thyroid Stim Hormone (TSH)on 02-24-2024 TSH 3.400 uIU/mL Normal 0.358-3.740 [facility] Comment on above: Performed By: #### L 100.0100, L503.0105, L506.0400, L501.9186, L500.4050, L500.4100, L506.1000, L501.9520 ####[facility] [address] [place], [address] Vitamin B12on 02-24-2024 Cobalamin (Vitamin B12) [Mass/Vol] 716 pg/mL Normal 211-911 [facility] Comment on above: Performed By: #### L 100.0100, L503.0105, L506.0400, L501.9186, L500.4050, L500.4100, L506.1000, L501.9520 ####[facility] [address] [place], [address] Vitamin D,25 Hydroxyon 02-23 Vitamin D 25-OH 26.0 ng/mL Normal [facility] Comment on above: Result Comment: Diana min D 25(OH) Status Range Deficiency <20 ng/mL (50nmol/L) Insufficiency 20 - 30 ng/mL (50 - 75 nmol/L) Sufficiency 30 - 100 ng/mL (75 - 250 nmol/L) Toxicity >100 ng/mL (>250 nmol/L) Performed By: #### L 100.0100, L503.0105, L506.0400, L501.9186, L500.4050, L500.4100, L506.1000, L501.9520 ####[facility] [address] [place], [address] Internal Medicine Office Vis iton 02-23-2024 Internal Medicine Office Visit [facility] [address] [place] [address] [place] [address] OFFICE VISIT Date of Service: 02/24/24 MR#: [id number] Acct: [id number] Name: BRIGID BELLA Rep #: [id number] : 1985 Provider: Dr. 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 She was seeing somebody at the [facility] and last saw them last year. She [...] or oth (more content not included)... Normal [facility] CNOVon 08-23-2023 CN Office Visit (UCWSTR ) BRIGID BELLA ([id number]) 1985 F Date Time Provider Department 08/23/23 10:00 AM [facility] During your visit today, we recorded the following information about you: Temperature Pulse Respiration Blood pressure 97.2 degrees 64/minute 18/minute 100/65 Weight Last Period 61 kg 08/23/23 Tita Houser APRN.DIRECTOR [place] 08/23/2023 10:35 AM Signed This note was created using [employer] Touch[employer]. Subjective Brigid Dorman Shayne is a 38 [...] history is provided by the patient. No hourly sign language interpreter was used. Eye Problem This is a [...] (more content not included)... Normal [facility] 06-29-2023 [facility] Telephone (FAMWS) BRIGID BELLA ([id number]) 1985 F Date Time Provider Department 06/29/23 [...] by JUAN A VILLARREAL on 07/06/23 Normal [facility] Lipid 1996 panelon 4 Cholesterol [Mass/Vol] 221 mg/dL High <200 Cl [facility] Comment on above: Order Comment: Speci men Type: BLOOD SPECIMEN Ordering Facility: [facility] Address: [address] [place] [address] Result Comment: <200 mg/dL, Desirable 200-239 mg/dL, Borderline high >239 mg/dL, High Performed By: #### 2 4331-1 #### [facility] CLIA [id number] [place] [address] Cholesterol in HDL [Mass/Vol] 63 mg/dL Normal >39 [facility] Comment on above: Order Comment: Jacky men Type: BLOOD SPECIMEN Ordering Facility: [facility] Address: [address] [place] [address] Result Comment: 40-5 9 mg/dL, Acceptable >59 mg/dL, High: Negative risk factor for coronary heart disease <40 mg/dL, Low: Positive risk factor for coronary heart disease Performed By: #### 2 4331-1 #### [facility] CLIA [id number] [address] [place] [address] Cholesterol in LDL [Mass/Vol] 150 mg/dL High <100 [facility] Comment on above: Order Comment: Jacky armendariz Type: BLOOD SPECIMEN Ordering Facility: [facility] Address: [address] [place] [address] Result Comment: <100 mg/dL, Optimal 100-129 mg/dL, Near optimal/above optimal 130-159 mg/dL, Borderline high 160-189 mg/dL, High >189 mg/dL, Very high Secondary prevention optimal LDL Cholesterol levels are recommended to be < 70 mg/dL Performed By: #### 2 4331-1 #### [facility] IA [id number] [address] [place] [address] [place] Cholesterol in LDL/Cholesterol in HDL [Mass ratio] 2.38 {ratio} Normal <2.54 [facility] Comment on above: Order Comment: Jacky kala Type: BLOOD SPECIMEN Ordering Facility: [facility] Address: [address] [place] [address] Result Comment: Ravi brown: 1. National Cholesterol Education Program ATP III Guideline At-A-Glance Quick Desk Reference: National Heart, Lung, and Blood [place]. National Institutes of Health. 2001: NIH Publication No. 01-3305. 2. An International Atherosclerosis Society position paper: global recommendations for the management of dyslipidemia: executive summary, Atherosclerosis. 2014: 232(2):410-413. Performed By: #### 2 4331-1 #### [facility] CLIA [id number] [address] [place] [address] [place] Cholesterol in VLDL [Mass/Vol] 8 mg/dL Normal <30 [facility] Comment on above: Order Comment: Jacky men Type: BLOOD SPECIMEN Ordering Facility: [facility] Address: [address] [place] [address] Performed By: #### 2 4331-1 #### [facility] CLIA [id number] [address] [place] [address] [place] Cholesterol non HDL [Mass/Vol] 158 mg/dL High <130 [facility] Comment on above: Order Comment: Jacky armendariz Type: BLOOD SPECIMEN Ordering Facility: [facility] Address: [address] [place] [address] Result Comment: <130 mg/dL, Optimal 130-159 mg/dL, Near optimal/above optimal 160-189 mg/dL, Borderline high 190-219 mg/dL, High >219 mg/dL, Very high Secondary prevention optimal non HDL Cholesterol levels are recommended to be <100 mg/dL Performed By: #### 2 4331-1 #### [facility] CLIA [id number] [address] [place] [address] [place] Cholesterol.total/Chol esterol in HDL [Mass ratio] 3.51 {ratio} Normal <5.10 [facility] Comment on above: Order Comment: Jacky armendariz Type: BLOOD SPECIMEN Ordering Facility: [facility] Address: [address] [place] [address] Performed By: #### 2 4331-1 #### [facility] CLIA [id number] [address] [place] [address] [place] FASTING TIME 13 hrs Normal [facility] Comment on above: Order Comment: Jacky men Type: BLOOD SPECIMEN Ordering Facility: [facility] Address: [address] [place] [address] Performed By: #### 2 4331-1 #### [facility] CLIA [id number] [address] [place] [address] [place] Triglyceride [Mass/Vol] 40 mg/dL Normal <150 [facility] Comment on above: Order Comment: Speci men Type: BLOOD SPECIMEN Ordering Facility: [facility] Address: [address] [place] [address] Result Comment: <150 mg/dL, Normal 150-199 mg/dL, Borderline high 200-499 mg/dL, High >499 mg/dL, Very high Performed By: #### 2 4331-1 #### [facility] CLIA [id number] [address] [place] [address] [place] CNOVon 03-20-2023 CNOV Office Visit (FAMPWS ) BRIGID BELLA ([id number]) 1985 F Date Time Provider Department 03/20/23 8:00 AM [facility] During your visit today, we recorded [...] last [address] 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 Melasma on forehead may be slightly hardwood floor layer. Head: Normocephalic, no masses, lesions, tenderness or [...] 04/07/2032 Hepatitis (more content not included)... Normal [facility] CBC W Auto Differential pane l (Bld)on 03-13-2023 Basophils (Bld) [#/Vol] 0.04 10*3/uL Normal <0.11 [facility] Comment on above: Order Comment: Speci men Type: BLOOD SPECIMEN Ordering Facility: [facility] Address: [address] [place] [address] Performed By: #### 5 7021-8 #### [facility] CLIA [id number] [address] [facility] [place] [place] [address] [place] Basophils/100 WBC (Bld) 0.6 % Normal [facility] Comment on above: Order Comment: Speci men Type: BLOOD SPECIMEN Ordering Facility: [facility] Address: [address] [place] [address] Performed By: #### 5 7021-8 #### [facility] CLIA [id number] [address] [place] [address] [place] Differential cell count method Nom (Bld) Auto Normal [facility] Comment on above: Order Comment: Speci men Type: BLOOD SPECIMEN Ordering Facility: [facility] Address: [address] [place] [address] Performed By: #### 5 7021-8 #### [facility] CLIA [id number] [address] [place] [address] [place] Eosinophils (Bld) [#/Vol] 0.22 10*3/uL Normal <0.46 [facility] Comment on above: Order Comment: Speci men Type: BLOOD SPECIMEN Ordering Facility: [facility] Address: [address] [place] [address] Performed By: #### 5 7021-8 #### [facility] CLIA [id number] [address] [place] [address] [place] Eosinophils/100 WBC (Bld) 3.3 % Normal [facility] Comment on above: Order Comment: Speci men Type: BLOOD SPECIMEN Ordering Facility: [facility] Address: [address] [place] [address] Performed By: #### 5 7021-8 #### [facility] CLIA [id number] [address] [place] [address] [place] Erythrocyte distribution width (RBC) [Ratio] 12.6 % Normal 11.5-15.0 [facility] Comment on above: Order Comment: Speci men Type: BLOOD SPECIMEN Ordering Facility: [facility] Address: [address] [place] [address] Performed By: #### 5 7021-8 #### [facility] CLIA [id number] [address] [place] [address] [place] Hematocrit (Bld) [Volume fraction] 40.1 % Normal 36.0-46.0 [facility] Comment on above: Order Comment: Speci men Type: BLOOD SPECIMEN Ordering Facility: [facility] Address: [address] [place] [address] Performed By: #### 5 7021-8 #### [facility] CLIA [id number] [address] [place] [address] [place] Hemoglobin (Bld) [Mass/Vol] 13.0 g/dL Normal 11.5-15.5 [facility] Comment on above: Order Comment: Speci men Type: BLOOD SPECIMEN Ordering Facility: [facility] Address: [address] [place] [address] Performed By: #### 5 7021-8 #### [facility] CLIA [id number] [address] [place] [address] [place] Immature granulocytes (Bld) [#/Vol] 10*3/uL Normal <0.10 [facility] Comment on above: Order Comment: Speci men Type: BLOOD SPECIMEN Ordering Facility: [facility] Address: [address] [place] [address] Performed By: #### 5 7021-8 #### [facility] CLIA [id number] [address] [place] [address] [place] Immature granulocytes/100 WBC (Bld) 0.1 % Normal [facility] Comment on above: Order Comment: Speci men Type: BLOOD SPECIMEN Ordering Facility: [facility] Address: [address] [place] [address] Performed By: #### 5 7021-8 #### [facility] CLIA [id number] [address] [place] [address] [place] Lymphocytes (Bld) [#/Vol] 2.45 10*3/uL Normal 1.00-4.00 [facility] Comment on above: Order Comment: Speci men Type: BLOOD SPECIMEN Ordering Facility: [facility] Address: [address] [place] [address] Performed By: #### 5 7021-8 #### [facility] CLIA [id number] [address] [place] [address] [place] Lymphocytes/100 WBC (Bld) 36.2 % Normal [facility] Comment on above: Order Comment: Speci men Type: BLOOD SPECIMEN Ordering Facility: [facility] Address: [address] [place] [address] Performed By: #### 5 7021-8 #### [facility] CLIA [id number] [address] [place] [address] [place] MCH (RBC) [Entitic mass] 29.1 pg Normal 26.0-34.0 [facility] Comment on above: Order Comment: Speci men Type: BLOOD SPECIMEN Ordering Facility: [facility] Address: [address] [place] [address] Performed By: #### 5 7021-8 #### [facility] CLIA [id number] [address] [place] [address] [place] MCHC (RBC) [Mass/Vol] 32.4 g/dL Normal 30.5-36.0 [facility] Comment on above: Order Comment: Speci men Type: BLOOD SPECIMEN Ordering Facility: [facility] Address: [address] [place] [address] Performed By: #### 5 7021-8 #### [facility] CLIA [id number] [address] [place] [address] [place] MCV (RBC) [Entitic vol] 89.7 fL Normal 80.0-100.0 [facility] Comment on above: Order Comment: Speci men Type: BLOOD SPECIMEN Ordering Facility: [facility] Address: [address] [place] [address] Performed By: #### 5 7021-8 #### [facility] CLIA [id number] [address] [place] [address] [place] Monocytes (Bld) [#/Vol] 0.60 10*3/uL Normal <0.87 [facility] Comment on above: Order Comment: Speci men Type: BLOOD SPECIMEN Ordering Facility: [facility] Address: [address] [place] [address] Performed By: #### 5 7021-8 #### [facility] CLIA [id number] [address] [place] [address] [place] Monocytes/100 WBC (Bld) 8.9 % Normal [facility] Comment on above: Order Comment: Speci men Type: BLOOD SPECIMEN Ordering Facility: [facility] Address: [address] [place] [address] Performed By: #### 5 7021-8 #### [facility] CLIA [id number] [address] [place] [address] [place] Neutrophils (Bld) [#/Vol] 3.44 10*3/uL Normal 1.45-7.50 [facility] Comment on above: Order Comment: Speci men Type: BLOOD SPECIMEN Ordering Facility: [facility] Address: [address] [place] [address] Performed By: #### 5 7021-8 #### [facility] CLIA [id number] [address] [place] [address] [place] Neutrophils/100 WBC (Bld) 50.9 % Normal [facility] Comment on above: Order Comment: Speci men Type: BLOOD SPECIMEN Ordering Facility: [facility] Address: [address] [place] [address] Performed By: #### 5 7021-8 #### [facility] CLIA [id number] [address] [place] [address] [place] Nucleated RBC (Bld) [#/Vol] 10*3/uL Normal <0.01 [facility] Comment on above: Order Comment: Speci men Type: BLOOD SPECIMEN Ordering Facility: [facility] Address: [address] [place] [address] Performed By: #### 5 7021-8 #### [facility] CLIA [id number] [address] [place] [address] [place] Nucleated RBC/100 WBC (Bld) [Ratio] 0.0 /100 WBC Normal [facility] Comment on above: Order Comment: Speci men Type: BLOOD SPECIMEN Ordering Facility: [facility] Address: [address] [place] [address] Performed By: #### 5 7021-8 #### [facility] CLIA [id number] [address] [place] [address] [place] Platelet mean volume (Bld) [Entitic vol] 11.4 fL Normal 9.0-12.7 [facility] Comment on above: Order Comment: Speci men Type: BLOOD SPECIMEN Ordering Facility: [facility] Address: [address] [place] [address] Performed By: #### 5 7021-8 #### [facility] CLIA [id number] [facility] [place] [address] [place] Platelets (Bld) [#/Vol] 293 10*3/uL Normal 150-400 [facility] Comment on above: Order Comment: Speci men Type: BLOOD SPECIMEN Ordering Facility: [facility] Address: [address] [place] [address] Performed By: #### 5 7021-8 #### [facility] CLIA [id number] [address] [place] [address] [place] RBC (Bld) [#/Vol] 4.47 10*6/uL Normal 3.90-5.20 [facility] Comment on above: Order Comment: Speci men Type: BLOOD SPECIMEN Ordering Facility: [facility] Address: [address] [place] [address] Performed By: #### 5 7021-8 #### [facility] CLIA [id number] [address] [place] [address] [place] WBC (Bld) [#/Vol] 6.76 10*3/uL Normal 3.70-11.00 [facility] Comment on above: Order Comment: Speci men Type: BLOOD SPECIMEN Ordering Facility: [facility] Address: [address] [place] [address] Performed By: #### 5 7021-8 #### [facility] CLIA [id number] [address] [place] [address] [place] Comprehensive metabolic 2000 panelon 03-13-2023 Albumin [Mass/Vol] 4.7 g/dL Normal 3.9-4.9 [facility] Comment on above: Order Comment: Speci men Type: BLOOD SPECIMEN Ordering Facility: [facility] Address: [address] [place] [address] Performed By: #### 2 4331-1, 41071-3 #### [facility] CLIA [id number] [address] [place] [address] [place] ALP [Catalytic activity/Vol] 72 U/L Normal 34-123 [facility] Comment on above: Order Comment: Speci men Type: BLOOD SPECIMEN Ordering Facility: [facility] Address: [address] [place] [address] Performed By: #### 2 4331-1, 06210-7 #### [facility] CLIA [id number] [address] [place] [address] [place] ALT [Catalytic activity/Vol] 16 U/L Normal 7-38 [facility] Comment on above: Order Comment: Speci men Type: BLOOD SPECIMEN Ordering Facility: [facility] Address: [address] [place] [address] Performed By: #### 2 4331-1, 24921-5 #### [facility] CLIA [id number] [address] [place] [id number] [place] Anion gap [Moles/Vol] 12 mmol/L Normal 9-18 [facility] Comment on above: Order Comment: Speci men Type: BLOOD SPECIMEN Ordering Facility: [facility] Address: [address] [place] [address] Performed By: #### 2 4331-1, #### [facility] CLIA [id number] [address] [place] [id number] [place] AST [Catalytic activity/Vol] 20 U/L Normal 13-35 [facility] Comment on above: Order Comment: Speci men Type: BLOOD SPECIMEN Ordering Facility: [facility] Address: [address] [place] [address] Performed By: #### 2 4331-1, #### [facility] CLIA [id number] [address] [place] [address] [place] Bilirubin [Mass/Vol] 0.7 mg/dL Normal 0.2-1.3 [facility] Comment on above: Order Comment: Speci men Type: BLOOD SPECIMEN Ordering Facility: [facility] Address: [address] [place] [address] Performed By: #### 2 4331-1, #### [facility] CLIA [id number] [address] [place] [address] [place] Calcium [Mass/Vol] 9.6 mg/dL Normal 8.5-10.2 [facility] Comment on above: Order Comment: Speci men Type: BLOOD SPECIMEN Ordering Facility: [facility] Address: [address] [place] [address] Performed By: #### 2 4331-1, #### [facility] CLIA [id number] [address] [place] [address] [place] Chloride [Moles/Vol] 102 mmol/L Normal 97-105 [facility] Comment on above: Order Comment: Speci men Type: BLOOD SPECIMEN Ordering Facility: [facility] Address: [address] [place] [address] Performed By: #### 2 4331-1, #### [facility] CLIA [id number] [address] [place] [address] [place] CO2 [Moles/Vol] 25 mmol/L Normal 22-30 [facility] Comment on above: Order Comment: Speci men Type: BLOOD SPECIMEN Ordering Facility: [facility] Address: [address] [place] [address] Performed By: #### 2 433-, #### [facility] CLIA [id number] [address] [place] [address] [place] Creatinine [Mass/Vol] 0.72 mg/dL Normal 0.58-0.96 [facility] Comment on above: Order Comment: Speci men Type: BLOOD SPECIMEN Ordering Facility: [facility] Address: [address] [place] [address] Performed By: #### 2 433-, #### [facility] CLIA [id number] [address] [place] [address] [place] Creatinine and Glomerular filtration rate.predicted panel (S/P/Bld) 111 mL/min/1.73m??? Normal >=60 [facility] Comment on above: Order Comment: Speci men Type: BLOOD SPECIMEN Ordering Facility: [facility] Address: [address] [place] [address] Result Comment: Vanessa mated Glomerular Filtration Rate [...] GFR. Performed By: #### 2 4331-1, #### [facility] CLIA [id number] [address] [place] [address] [place] Glucose [Mass/Vol] 80 mg/dL Normal 74-99 [facility] Comment on above: Order Comment: Jacky armendariz Type: BLOOD SPECIMEN Ordering Facility: [facility] Address: [address] [place] [address] Result Comment: The [place] Diabetes Association (ADA) provides guidance for cutoff [...] Standards of Medical Care in Diabetes 2016, [place] [employer]. Diabetes Care. 2016.39(Suppl 1). Performed By: #### 2 4331-1, 82594-0 #### [facility] CLIA [id number] [facility] [place] [address] [place] Potassium [Moles/Vol] 4.3 mmol/L Normal 3.7-5.1 [facility] Comment on above: Order Comment: Jacky armendariz Type: BLOOD SPECIMEN Ordering Facility: [facility] Address: [address] [place] [address] Performed By: #### 2 4331-, #### [facility] CLIA [id number] [facility] [place] [address] [place] Protein [Mass/Vol] 7.5 g/dL Normal 6.3-8.0 [facility] Comment on above: Order Comment: Jacky armendariz Type: BLOOD SPECIMEN Ordering Facility: [facility] Address: [address] [place] [address] Performed By: #### 2 4331-1, #### [facility] CLIA [id number] [address] [place] [address] [place] Sodium [Moles/Vol] 139 mmol/L Normal 136-144 [facility] Comment on above: Order Comment: Speci men Type: BLOOD SPECIMEN Ordering Facility: [facility] Address: [address] [place] [address] Performed By: #### 2 4331-1, 74929-7 #### [facility] CLIA [id number] [address] [place] [address] [place] Urea nitrogen [Mass/Vol] 13 mg/dL Normal 7-21 [facility] Comment on above: Order Comment: Speci men Type: BLOOD SPECIMEN Ordering Facility: [facility] Address: [address] [place] [address] Performed By: #### 2 4331-1, #### [facility] CLIA [id number] [address] [place] [address] [place] Lipid 1996 panelon 3 Cholesterol [Mass/Vol] 279 mg/dL High <200 [facility] Comment on above: Order Comment: Speci men Type: BLOOD SPECIMEN Ordering Facility: [facility] Address: [address] [place] [address] Result Comment: <200 mg/dL, Desirable 200-239 mg/dL, Borderline high >239 mg/dL, High Performed By: #### 2 4331-1, #### [facility] CLIA [id number] [address] [place] [address] [place] Cholesterol in HDL [Mass/Vol] 73 mg/dL Normal >39 [facility] Comment on above: Order Comment: Speci men Type: BLOOD SPECIMEN Ordering Facility: [facility] Address: [address] [place] [address] Result Comment: 40-5 9 mg/dL, Acceptable >59 mg/dL, High: Negative risk factor for coronary heart disease <40 mg/dL, Low: Positive risk factor for coronary heart disease Performed By: #### 2 4331-1, 34178-7 #### [facility] CLIA [id number] [address] [place] [address] [place] Cholesterol in LDL [Mass/Vol] 197 mg/dL High <100 [facility] Comment on above: Order Comment: Jacky armendariz Type: BLOOD SPECIMEN Ordering Facility: [facility] Address: [address] [place] [address] Result Comment: <100 mg/dL, Optimal 100-129 mg/dL, Near optimal/above optimal 130-159 mg/dL, Borderline high 160-189 mg/dL, High >189 mg/dL, Very high Secondary prevention optimal LDL Cholesterol levels are recommended to be < 70 mg/dL Performed By: #### 2 4331-1, 33000-2 #### [facility] CLIA [id number] [address] [place] [address] [place] Cholesterol in LDL/Cholesterol in HDL [Mass ratio] 2.70 {ratio} High <2.54 [facility] Comment on above: Order Comment: Jacky armendariz Type: BLOOD SPECIMEN Ordering Facility: [facility] Address: [address] [place] [address] Result Comment: Refe kevin: 1. National Cholesterol Education Program ATP III Guideline At-A-Glance Quick Desk Reference: National Heart, Lung, and Blood [place]. National Institutes of Health. 2001: NIH Publication No. 01-3305. 2. An International Atherosclerosis Society position paper: global recommendations for the management of dyslipidemia: executive summary, Atherosclerosis. 2014: 232(2):410-413. Performed By: #### 2 4331-1, 11495-3 #### [facility] CLIA [id number] [address] [place], [place] [address] [address] [place] Cholesterol in VLDL [Mass/Vol] 9 mg/dL Normal <30 [facility] Comment on above: Order Comment: Jacky armendariz Type: BLOOD SPECIMEN Ordering Facility: [facility] [facility] Address: [address] [place] [address] Performed By: #### 2 4331-1, 31667-0 #### [facility] CLIA [id number] [id number] [place] Cholesterol non HDL [Mass/Vol] 206 mg/dL High <130 [facility] Comment on above: Order Comment: Speci men Type: BLOOD SPECIMEN Ordering Facility: [facility] Address: [address] [place] [address] Result Comment: <130 mg/dL, Optimal 130-159 mg/dL, Near optimal/above optimal 160-189 mg/dL, Borderline high 190-219 mg/dL, High >219 mg/dL, Very high Secondary prevention optimal non HDL Cholesterol levels are recommended to be <100 mg/dL Performed By: #### 2 4331-1, 62239-3 #### [facility] CLIA [id number] [address] [place] [address] [place] Cholesterol.total/Chol esterol in HDL [Mass ratio] 3.82 {ratio} Normal <5.10 [facility] Comment on above: Order Comment: Speci men Type: BLOOD SPECIMEN Ordering Facility: [facility] Address: [address] [place] [address] Performed By: #### 2 4331-1, 87116-1 #### [facility] CLIA [id number] [address] [place] [address] [place] FASTING TIME 14 hrs Normal [facility] Comment on above: Order Comment: Speci men Type: BLOOD SPECIMEN Ordering Facility: [facility] Address: [address] [place] [address] Performed By: #### 2 4331-1, 33947-9 #### [facility] CLIA [id number] [address] [place] [address] [place] Triglyceride [Mass/Vol] 43 mg/dL Normal <150 [facility] Comment on above: Order Comment: Speci men Type: BLOOD SPECIMEN Ordering Facility: [facility] Address: [address] [place] [address] Result Comment: <150 mg/dL, Normal 150-199 mg/dL, Borderline high 200-499 mg/dL, High >499 mg/dL, Very high Performed By: #### 2 4331-1, 85365-4 #### [facility] CLIA [id number] [address] [place] [address] [place] CNOVon 12-26-2022 CNOV Office Visit (FAMPWS ) BRIGID BELLA ([id number]) 1985 F Date Time Provider Department 12/26/22 [...] which included preparing to see the patient, [id number] patient care, completing clinical documentation, obtaining and/or [...] care [Z76.89] Depression screening [Z13.31] Order(s):DEPRESSION SCREENING/ASSESSMENT [[id number]] Order (more content not included)... Normal [facility] Absolute lymphocyte countOrd ered By: Trish Murray on 06-17-2022 Lymphocytes Auto (Unsp spec) [#/Vol] 2.93 10*3/uL 0.83-4.51 [facility] Basophil percentageOrdered B y: Trish Murray on 06-17-2022 Basophils/100 WBC (Bld) 0.2 % 0-1 [facility] Eosinophils/100 WBC (Bld) 0.7 % 0-5 [facility] Neutrophils (Bld) [#/Vol] 6.9 10*3/uL 2.0-7.7 [facility] Neutrophils/100 WBC (Bld) 62.7 % 47-70 [facility] WBC (Bld) [#/Vol] 10.9 10*3/uL 4.4-11.0 [facility] Blood erythrocytes count (nu mber/volume)Ordered By: Trish Murray on 06-17-2022 RBC (Bld) [#/Vol] 4.03 10*6/uL 4.2-5.4 [facility] Blood hemoglobin measurement (mass/volume)Ordered By: Trish Murray on 06-17-2022 Hemoglobin (Bld) [Mass/Vol] 12.3 g/dL 12.0-15.0 [facility] Blood lymphocytes/100 leukoc ytesOrdered By: Trish Murray on 06-17-2022 Lymphocytes/100 WBC (Bld) 26.8 % 19-41 [facility] Blood monocytes/100 leukocyt esOrdered By: Trish Murray on 06-17-2022 Monocytes/100 WBC (Bld) 9.2 % 0-10 [facility] Blood platelet mean volumeOr dered By: Trish Murray on 06-17-2022 Platelet mean volume (Bld) [Entitic vol] 12.9 fL 6.2-12.0 [facility] Determination of erythrocyte mean corpuscular volume (MCV)Ordered By: Trish Murray on 06-17-2022 MCV (RBC) [Entitic vol] 91.6 fL 81-99 [facility] Hematocrit Auto (Bld) [Volum e fraction]Ordered By: Trish Murray on 06-17-2022 Hematocrit (Bld) [Volume fraction] 36.9 % 37-47 [facility] - Hematology and Cell countsOrdered By: Trish Murray on 06-17-2022 Erythrocyte distribution width (RBC) [Entitic vol] 45.1 fL 35.1-43.9 [facility] Erythrocyte distribution width (RBC) [Ratio] 13.4 % 11.6-14.6 [facility] Immature granulocytes/100 WBC (Bld) 0.400 % 0.0-0.9 [facility] Comment on above: IG% - Immature Granu locytes (promyelocytes, myelocytes and metamyelocytes) > 1% indicates that a LEFT SHIFT is Present. MCH (RBC) [Entitic mass] 30.5 pg 27.0-32.0 [facility] Nucleated RBC/100 WBC (Bld) [Ratio] 0 % 0-5 [facility] MCHC Auto (RBC) [Mass/Vol]Or dered By: Trish Murray on 06-17-2022 MCHC (RBC) [Mass/Vol] 33.3 g/dL 32-36 [facility] Platelets bldOrdered By: Jossy Murray on 06-17-2022 Platelets (Bld) [#/Vol] 206 10*3/uL 150-450 [facility] - Chemistry and C hemistry - challengeon 06-13-2022 Glucose Ql (U) Negative [facility] - Urinalysison Protein Ql (U) Negative [facility] - Chemistry and C hemistry - challengeon 05-30-2022 Glucose Ql (U) Negative [facility] - Urinalysison Protein Ql (U) Negative [facility] No Panel InformationOrdered By: Dr. Mcconnell on 05-27-2022 Group B Streptococcus Culture Group B Beta Streptococcus is not isolated. [facility] Absolute lymphocyte countOrd ered By: Dr. Polk on 05-23-2022 Lymphocytes Auto (Unsp spec) [#/Vol] 1.93 10*3/uL 0.83-4.51 [facility] Basophil percentageOrdered B y: Dr. Polk on 05-23-2022 Basophils/100 WBC (Bld) 0.2 % 0-1 [facility] Eosinophils/100 WBC (Bld) 0.8 % 0-5 [facility] Neutrophils (Bld) [#/Vol] 7.6 10*3/uL 2.0-7.7 [facility] Neutrophils/100 WBC (Bld) 71.6 % 47-70 [facility] WBC (Bld) [#/Vol] 10.6 10*3/uL 4.4-11.0 [facility] Blood erythrocytes count (nu mber/volume)Ordered By: Dr. Polk on 05-23-2022 RBC (Bld) [#/Vol] 3.97 10*6/uL 4.2-5.4 [facility] Blood hemoglobin measurement (mass/volume)Ordered By: Dr. Polk on 05-23-2022 Hemoglobin (Bld) [Mass/Vol] 12.0 g/dL 12.0-15.0 [facility] Blood lymphocytes/100 leukoc ytesOrdered By: Dr. Polk on 05-23-2022 Lymphocytes/100 WBC (Bld) 18.1 % 19-41 [facility] Blood monocytes/100 leukocyt esOrdered By: Dr. Polk on 05-23-2022 Monocytes/100 WBC (Bld) 8.7 % 0-10 [facility] Blood platelet mean volumeOr dered By: Dr. Polk on 05-23-2022 Platelet mean volume (Bld) [Entitic vol] 11.6 fL 6.2-12.0 [facility] Determination of erythrocyte mean corpuscular volume (MCV)Ordered By: Dr. Polk on 05-23-2022 MCV (RBC) [Entitic vol] 90.9 fL 81-99 [facility] Hematocrit Auto (Bld) [Volum e fraction]Ordered By: Dr. Polk on 05-23-2022 Hematocrit (Bld) [Volume fraction] 36.1 % 37-47 [facility] - Chemistry and C hemistry - challengeon 05-23-2022 Glucose Ql (U) Negative [facility] - Hematology and Cell countsOrdered By: Dr. Polk on 05-23-2022 Erythrocyte distribution width (RBC) [Entitic vol] 45.3 fL 35.1-43.9 [facility] Erythrocyte distribution width (RBC) [Ratio] 13.5 % 11.6-14.6 [facility] Immature granulocytes/100 WBC (Bld) 0.600 % 0.0-0.9 [facility] Comment on above: IG% - Immature Granu locytes (promyelocytes, myelocytes and metamyelocytes) > 1% indicates that a LEFT SHIFT is Present. MCH (RBC) [Entitic mass] 30.2 pg 27.0-32.0 [facility] Nucleated RBC/100 WBC (Bld) [Ratio] 0 % 0-5 [facility] - Urinalysison Protein Ql (U) Negative [facility] MCHC Auto (RBC) [Mass/Vol]Or dered By: Dr. Polk on 05-23-2022 MCHC (RBC) [Mass/Vol] 33.2 g/dL 32-36 [facility] Platelets bldOrdered By: Dr. Polk on 05-23-2022 Platelets (Bld) [#/Vol] 236 10*3/uL 150-450 [facility] - Chemistry and C hemistry - challengeon 05-09-2022 Glucose Ql (U) Negative [facility] - Urinalysison Protein Ql (U) Negative [facility] - Chemistry and C hemistry - challengeon 04-24-2022 Glucose Ql (U) Negative [facility] - Urinalysison Protein Ql (U) Negative [facility] - Chemistry and C hemistry - challengeon 04-07-2022 Glucose Ql (U) Negative [facility] - Urinalysison Protein Ql (U) Negative [facility] Absolute lymphocyte countOrd ered By: Dr. Polk on 03-21-2022 Lymphocytes Auto (Unsp spec) [#/Vol] 1.68 10*3/uL 0.83-4.51 [facility] Basophil percentageOrdered B y: Dr. Polk on 03-21-2022 Basophils/100 WBC (Bld) 0.2 % 0-1 [facility] Eosinophils/100 WBC (Bld) 0.7 % 0-5 [facility] Neutrophils (Bld) [#/Vol] 7.8 10*3/uL 2.0-7.7 [facility] Neutrophils/100 WBC (Bld) 74.5 % 47-70 [facility] WBC (Bld) [#/Vol] 10.5 10*3/uL 4.4-11.0 [facility] Blood erythrocytes count (nu mber/volume)Ordered By: Dr. Polk on 03-21-2022 RBC (Bld) [#/Vol] 3.35 10*6/uL 4.2-5.4 [facility] Blood hemoglobin measurement (mass/volume)Ordered By: Dr. Polk on 03-21-2022 Hemoglobin (Bld) [Mass/Vol] 10.4 g/dL 12.0-15.0 [facility] Blood lymphocytes/100 leukoc ytesOrdered By: Dr. Polk on 03-21-2022 Lymphocytes/100 WBC (Bld) 16.1 % 19-41 [facility] Blood monocytes/100 leukocyt esOrdered By: Dr. Polk on 03-21-2022 Monocytes/100 WBC (Bld) 8.1 % 0-10 [facility] Blood platelet mean volumeOr dered By: Dr. Polk on 03-21-2022 Platelet mean volume (Bld) [Entitic vol] 10.9 fL 6.2-12.0 [facility] Determination of erythrocyte mean corpuscular volume (MCV)Ordered By: Dr. Polk on 03-21-2022 MCV (RBC) [Entitic vol] 90.4 fL 81-99 [facility] Gestational diabetes screen 1-hour screen with 50g oral glucose loadOrdered By: Dr. Polk on 03-21-2022 Glucose 1 Hr post 50 g glucose PO [Mass/Vol] 92 mg/dL 70-140 [facility] Hematocrit Auto (Bld) [Volum e fraction]Ordered By: Dr. Polk on 03-21-2022 Hematocrit (Bld) [Volume fraction] 30.3 % 37-47 [facility] - Chemistry and C hemistry - challengeon 03-21-2022 Glucose Ql (U) Negative [facility] - Hematology and Cell countsOrdered By: Dr. Polk on 03-21-2022 Erythrocyte distribution width (RBC) [Entitic vol] 40.5 fL 35.1-43.9 [facility] Erythrocyte distribution width (RBC) [Ratio] 12.4 % 11.6-14.6 [facility] Immature granulocytes/100 WBC (Bld) 0.400 % 0.0-0.9 [facility] Comment on above: IG% - Immature Granu locytes (promyelocytes, myelocytes and metamyelocytes) > 1% indicates that a LEFT SHIFT is Present. MCH (RBC) [Entitic mass] 31.0 pg 27.0-32.0 [facility] Nucleated RBC/100 WBC (Bld) [Ratio] 0 % 0-5 [facility] - Urinalysison Protein Ql (U) Negative [facility] MCHC Auto (RBC) [Mass/Vol]Or dered By: Dr. Polk on 03-21-2022 MCHC (RBC) [Mass/Vol] 34.3 g/dL 32-36 [facility] Platelets bldOrdered By: Dr. Polk on 03-21-2022 Platelets (Bld) [#/Vol] 241 10*3/uL 150-450 [facility] - Chemistry and C hemistry - challengeon 01-24-2022 Glucose Ql (U) Negative [facility] Work Phone: Laboratory - Urinalysison Protein Ql (U) Negative [facility] Work Phone: No Panel Informationon 01-24 Toxoplasma Comment Comment . [facility] Work Phone: Comment on above: It is presumed the p atient has not been infected with andis not undergoing an acute infection with Toxoplasma. Ifsymptoms persist, submit a new specimen after three weeks. Serum Toxoplasma gondii IgG antibody assay (units/volume)on 01-24-2022 T. gondii IgG Qn (S) < 3.0 IU/mL 0.0-7.1 [facility] Work Phone: Comment on above: Negative <7.2 Equivo олег 7.2 - 8.7 Positive >8.7Performed at: [facility] [address] [id number] Director: Kwabena Cifuentes PhD, Phone: [phone] Serum Toxoplasma gondii IgM antibody assay by immunoassay (units/volume)on 01-24-2022 T. gondii IgM IA Qn (S) < 3.0 AU/mL 0.0-7.9 [facility] Work Phone: Comment on above: Negative <8.0 Equivo олег 8.0 - 9.9 Positive >9.9 Serum or plasma cytomegalovi rick (CMV) IgG antibody assay (units/volume)on 01-24-2022 CMV IgG Qn < 0.60 U/mL 0.00-0.59 [facility] Work Phone: Comment on above: Negative <0.60 Equiv ocal 0.60 - 0.69 Positive >0.69 Serum or plasma cytomegalovi rick (CMV) IgM antibody assay (units/volume)on 01-24-2022 CMV IgM Qn < 30.0 AU/mL 0.0-29.9 [facility] Work Phone: Comment on above: Negative <30.0 Equiv ocal 30.0 - 34.9 Positive >34.9A positive result is generally indicative of acuteinfection, reactivation or persistent IgM production.Performed at: - [facility] [id number] Director: Kawbena Cifuentes PhD, Phone: [phone] UA DIP, URINE (POC)on 2021 BILIRUBIN UA (POCT) Negative Negative [facility] CLARITY UA (POCT) Clear [facility] COLOR UA (POCT) Yellow [facility] GLUCOSE UA (POCT) Negative Negative mg/dL [facility] HEMOGLOBIN/BLOOD UA (POCT) Negative Negative [facility] KETONE UA (POCT) Negative Negative mg/dL [facility] LEUKOCYTES UA (POCT) Negative Negative [facility] NITRITE UA (POCT) Negative Negative [facility] PH UA (POCT) 6.5 4.5 - 8.0 [facility] Protein Ql (U) Negative Negative mg/dL [facility] SPECIFIC GRAVITY UA (POCT) <=1.005 Abnormal 1.005 - 1.030 [facility] UROBILINOGEN UA (POCT) 0.2 E.U./dL Dianne l E.U./dL [facility] Laboratory - Chemistry and C hemistry - challengeon 12-20-2021 Glucose Ql (U) Negative [facility] Work Phone: Laboratory - Urinalysison Protein Ql (U) Negative [facility] Work Phone: Absolute lymphocyte counton 12-06-2021 Lymphocytes Auto (Unsp spec) [#/Vol] 1.77 10*3/uL 0.83-4.51 [facility] Work Phone: Basophil percentageon 2021 Basophils/100 WBC (Bld) 0.2 % 0-1 [facility] Work Phone: Eosinophils/100 WBC (Bld) 0.8 % 0-5 [facility] Work Phone: Neutrophils (Bld) [#/Vol] 7.4 10*3/uL 2.0-7.7 [facility] Work Phone: Neutrophils/100 WBC (Bld) 74.1 % 47-70 [facility] Work Phone: WBC (Bld) [#/Vol] 10.0 10*3/uL 4.4-11.0 [facility] Work Phone: Blood erythrocytes count (nu mber/volume)on 12-06-2021 RBC (Bld) [#/Vol] 4.26 10*6/uL 4.2-5.4 [facility] Work Phone: Blood hemoglobin measurement (mass/volume)on 12-06-2021 Hemoglobin (Bld) [Mass/Vol] 12.9 g/dL 12.0-15.0 [facility] Work Phone: Blood lymphocytes/100 leukoc yteson 12-06-2021 Lymphocytes/100 WBC (Bld) 17.8 % 19-41 [facility] Work Phone: Blood monocytes/100 leukocyt eson 12-06-2021 Monocytes/100 WBC (Bld) 6.6 % 0-10 [facility] Work Phone: Blood platelet mean volumeon 12-06-2021 Platelet mean volume (Bld) [Entitic vol] 11.3 fL 6.2-12.0 [facility] Work Phone: Determination of erythrocyte mean corpuscular volume (MCV)on 12-06-2021 MCV (RBC) [Entitic vol] 90.1 fL 81-99 [facility] Work Phone: HIV 1 and HIV-2 antibody ass ay with HIV-1 p24 antigen detectionon 12-06-2021 HIV 1+2 Ab+HIV1 p24 Ag IA Ql Non-Reactive Nonreactive [facility] Work Phone: Hematocrit Auto (Bld) [Volum e fraction]on 12-06-2021 Hematocrit (Bld) [Volume fraction] 38.4 % 37-47 [facility] Work Phone: Laboratory - Hematology and Cell countson 12-06-2021 Erythrocyte distribution width (RBC) [Entitic vol] 41.9 fL 35.1-43.9 [facility] Work Phone: Erythrocyte distribution width (RBC) [Ratio] 13.0 % 11.6-14.6 [facility] Work Phone: Immature granulocytes/100 WBC (Bld) 0.500 % 0.0-0.9 [facility] Work Phone: Comment on above: IG% - Immature Granu locytes (promyelocytes, myelocytes and metamyelocytes) > 1% indicates that a LEFT SHIFT is Present. MCH (RBC) [Entitic mass] 30.3 pg 27.0-32.0 [facility] Work Phone: Nucleated RBC/100 WBC (Bld) [Ratio] 0 % 0-5 [facility] Work Phone: MCHC Auto (RBC) [Mass/Vol]on 12-06-2021 MCHC (RBC) [Mass/Vol] 33.6 g/dL 32-36 [facility] Work Phone: No Panel Informationon 12-06 Hepatitis B Surface Antigen Non-Reactive Nonreactive [facility] Work Phone: Hepatitis C Antibody Non-Reactive Nonreactive [facility] Work Phone: Comment on above: Non Reactive: < 0.8 Equivocal: >/= 0.8 to < 1.0 Reactive: >/= 1.0The CDC recommends that a reactive/equivocal HCV antibody result be followed up by the HCV Nucleic Acid Amplificationtest (908896) Miscellaneous Test Comment MAILED SPECIMEN [facility] Work Phone: Rubella IgG Antibody Reactive Nonreactive [facility] Work Phone: Comment on above: Antibody Results Int erpretation of Immune Status Non Reactive Presumed Non-Immune Equivocal Equivocal Reactive Presumed Immune Platelets bldon 12-06-2021 Platelets (Bld) [#/Vol] 300 10*3/uL 150-450 [facility] Work Phone: Serum Treponema species anti body detectionon 12-06-2021 Treponema sp Ab Ql (S) Non-Reactive [facility] Work Phone: Chlamydia trachomatis rRNA d etection by probe and target amplification methodon 11-21-2021 C. trachomatis rRNA SINA+probe Ql (Unsp spec) Negative Negative [facility] Work Phone: Laboratory - Drug toxicology on 11-21-2021 Amphetamines Ql (U) Negative <1000 ng/mL [facility] Work Phone: Benzodiazepines Ql (U) Negative < 200 ng/mL [facility] Work Phone: Cannabinoids Screen Ql (U) Negative < 50 ng/mL [facility] Work Phone: Cocaine Ql (U) Negative < 300 ng/mL [facility] Work Phone: Opiates Ql (U) Negative < 300 ng/mL [facility] Work Phone: Laboratory - Microbiology an d Antimicrobial susceptibilityon 11-21-2021 N. gonorrhoeae DNA SINA+probe Ql (Unsp spec) Negative Negative [facility] Work Phone: Comment on above: Performed at: =[address] [id number] Director: Maya Barrett MD, Phone: [phone] No Panel Informationon 11-21 MDMA (Ecstasy) Screen Negative < 500 ng/mL [facility] Work Phone: Urine Barbiturates Screen Negative < 200 ng/mL [facility] Work Phone: Urine Drug Screen Comment [facility] Work Phone: Comment on above: CONFIRMATORY [...] Methadone Screen Negative < 300 ng/mL [facility] Work Phone: Urine phencyclidine (PCP) de tectionon 11-21-2021 Phencyclidine Ql (U) Negative < 25 ng/mL [facility] Work Phone: CBC with differentialon 10-03 BASO # 0.1 K CUMM Normal 0.0-0.2 [facility] Comment on above: Order Comment: Items in this order include: Comprehensive Metabolic Panel, Lipid Panel, Vit D 25 [place] (Total), CBC with differential, , Testing Performed By: [facility] [place] [address] Dr. Kathy Jhaveri, Traffic Operator Performed By: #### C 215, [id number], C47, C8 #### [facility] [address] [place] [address] Rd [address] [place] [address] Basophils/100 WBC (Bld) 0.6 % Normal 0.0-3.0 [facility] Comment on above: Order Comment: Items in this order include: Comprehensive Metabolic Panel, Lipid Panel, Vit D 25 [place] (Total), CBC with differential, , Testing Performed By: [facility] [address] [place] [address]. [place] [address] Dr. Kathy Jhaveri, Traffic Operator Performed By: #### C 215, C3763, C47, C8 #### [facility] [address] [place] [address] Rd [address] [place] [address] EOS # 0.1 K CUMM Normal 0.0-0.4 [facility] Comment on above: Order Comment: Items in this order include: Comprehensive Metabolic Panel, Lipid Panel, Vit D 25 [place] (Total), CBC with differential, , Testing Performed By: [facility] [address] [place] [address]. [place] [address] Dr. Kathy Jhaveri, Traffic Operator Performed By: #### C 215, C3763, C47, C8 #### [facility] [address] [place] [address] [address] [place] [address] Eosinophils/100 WBC (Bld) 0.9 % Normal 0.0-7.0 [facility] Comment on above: Order Comment: Items in this order include: Comprehensive Metabolic Panel, Lipid Panel, Vit D 25 [place] (Total), CBC with differential, , Testing Performed By: [facility] [address] [place] [address]. [place] [id number] Dr. Kathy Jhaveri, Traffic Operator Performed By: #### C 215, C3763, C47, C8 #### [facility], [facility]. [address] [place] [address] [address] [place] [address] Erythrocyte distribution width (RBC) [Ratio] 13.1 % Normal 11.5-15.5 [facility] Comment on above: Order Comment: Items in this order include: Comprehensive Metabolic Panel, Lipid Panel, Vit D 25 [place] (Total), CBC with differential, , Testing Performed By: [facility] [address] [place] [address] Dr. Kathy Jhaveri, Traffic Operator Performed By: #### C 215, [id number], C47, C8 #### [facility], [facility]. [address] [place] [address] [address] [place] [address] Hematocrit (Bld) [Volume fraction] 39.5 % Normal 37.0-47.0 [facility] Comment on above: Order Comment: Items in this order include: Comprehensive Metabolic Panel, Lipid Panel, Vit D 25 [place] (Total), CBC with differential, , Testing Performed By: [facility] [address] [place] [address]. [place] [address] Dr. Kathy Jhaveri, Traffic Operator Performed By: #### C 215, C3763, C47, C8 #### [facility], [facility]. [address] [place] [address] [address] [place] [address] Hemoglobin (Bld) [Mass/Vol] 12.6 g/dL Normal 11.5-15.5 [facility] Comment on above: Order Comment: Items in this order include: Comprehensive Metabolic Panel, Lipid Panel, Vit D 25 [place] (Total), CBC with differential, , Testing Performed By: [facility] [address] [place] [address]. [place] [address] Dr. Kathy Jhaveri, Traffic Operator Performed By: #### C 215, C3763, C47, C8 #### [facility] [address] [place] [address] [address] [place] [address] ImmGrn # 0.0 K CUMM Normal 0.0-0.3 [facility] Comment on above: Order Comment: Items in this order include: Comprehensive Metabolic Panel, Lipid Panel, Vit D 25 [place] (Total), CBC with differential, , Testing Performed By: [facility] [address] [place] [address]. [place] [address] Dr. Kathy Jhaveri, Traffic Operator Performed By: #### C 215, C3763, C47, C8 #### [facility], [facility]. [address] [place] [address] [address] [place] [address] ImmGrn % 0.3 % Normal 0.0-3.0 [facility] Comment on above: Order Comment: Items in this order include: Comprehensive Metabolic Panel, Lipid Panel, Vit D 25 [place] (Total), CBC with differential, , Testing Performed By: [facility] [address] [place] [address]. [place] [address] Dr. Kathy Jhaveri, Traffic Operator Performed By: #### C 215, C3763, C47, C8 #### [facility], [facility]. [address] [place] [address] [address] [place] [address] LYMPH # 2.0 K CUMM Normal 0.7-4.5 [facility] Comment on above: Order Comment: Items in this order include: Comprehensive Metabolic Panel, Lipid Panel, Vit D 25 [place] (Total), CBC with differential, , Testing Performed By: [facility] [address] [place] [address]. [place] [address] Dr. Kathy Jhaveri, Traffic Operator Performed By: #### C 215, C3763, C47, C8 #### [facility], [facility]. [address] [place] [address] [address] [place] [address] Lymphocytes/100 WBC (Bld) 25.7 % Normal 14.0-46.0 [facility] Comment on above: Order Comment: Items in this order include: Comprehensive Metabolic Panel, Lipid Panel, Vit D 25 [place] (Total), CBC with differential, , Testing Performed By: [facility] [address] [place] [address]. [place] [address] Dr. Kathy Jhaveri, Traffic Operator Performed By: #### C 215, C3763, C47, C8 #### [facility] [address] [place] [address] [address] [place] [address] MCH (RBC) [Entitic mass] 29.3 pg Normal 27.0-31.0 [facility] Comment on above: Order Comment: Items in this order include: Comprehensive Metabolic Panel, Lipid Panel, Vit D 25 [place] (Total), CBC with differential, , Testing Performed By: [facility] [address] [place] [address] Dr. Kathy Jhaveri, Traffic Operator Performed By: #### C 215, C3763, C47, C8 #### [facility], [facility]. [address] [place] [address] [address] [place] [address] MCHC (RBC) [Mass/Vol] 31.9 g/dL Low 32.0-36.0 [facility] Comment on above: Order Comment: Items in this order include: Comprehensive Metabolic Panel, Lipid Panel, Vit D 25 [place] (Total), CBC with differential, , Testing Performed By: [facility] [address] [place] [address] Kathy Jhaveri, Traffic Operator Performed By: #### C 215, C3763, C47, C8 #### [facility], [facility]. [address] [place] [address] [address] [place] [address] MCV (RBC) [Entitic vol] 91.9 fL Normal 78.0-100.0 [facility] Comment on above: Order Comment: Items in this order include: Comprehensive Metabolic Panel, Lipid Panel, Vit D 25 [place] (Total), CBC with differential, , Testing Performed By: [facility] [address] [place] [address]. [place] [address] Dr. Kathy Jhaveri, Traffic Operator Performed By: #### C 215, C3763, C47, C8 #### [facility] [address] [place] [address] [address] [place] [address] MONO # 0.6 K CUMM Normal 0.1-1.0 [facility] Comment on above: Order Comment: Items in this order include: Comprehensive Metabolic Panel, Lipid Panel, Vit D 25 [place] (Total), CBC with differential, , Testing Performed By: [facility] [address] [place] [address] Kathy Jhaveri, Traffic Operator Performed By: #### C 215, C3763, C47, C8 #### [facility] [address] [place] [address] [address] [place] [address] Monocytes/100 WBC (Bld) 7.7 % Normal 4.0-13.0 [facility] Comment on above: Order Comment: Items in this order include: Comprehensive Metabolic Panel, Lipid Panel, Vit D 25 [place] (Total), CBC with differential, , Testing Performed By: [facility] [address] [place] [address] Kathy Jhaveri, Traffic Operator Performed By: #### C 215, C3763, C47, C8 #### [facility], [facility]. [address] [place] [address] [address] [place] [address] TOMI # 5.0 K CUMM Normal 1.8-7.8 [facility] Comment on above: Order Comment: Items in this order include: Comprehensive Metabolic Panel, Lipid Panel, Vit D 25 [place] (Total), CBC with differential, , Testing Performed By: [facility] [address] [place] [address] Kathy Jhaveri, Traffic Operator Performed By: #### C 215, C3763, C47, C8 #### [facility], [facility]. [address] [place] [address] [address] [place] [address] Neutrophils/100 WBC (Bld) 64.8 % Normal 40.0-74.0 [facility] Comment on above: Order Comment: Items in this order include: Comprehensive Metabolic Panel, Lipid Panel, Vit D 25 [place] (Total), CBC with differential, , Testing Performed By: [facility] [place] [address] Dr. Kathy Jhaveri, Traffic Operator Performed By: #### C 215, C3763, C47, C8 #### [facility] [address] [place] [address] Platelet mean volume (Bld) [Entitic vol] 12.4 fL Normal 8.9-12.6 [facility] Comment on above: Order Comment: Items in this order include: Comprehensive Metabolic Panel, Lipid Panel, Vit D 25 [place] (Total), CBC with differential, , Testing Performed By: [facility] [address] [place] [address]. [place] [address] Dr. Kathy Jhaveri, Traffic Operator Performed By: #### C 215, C3763, C47, C8 #### [facility] [address] [place] [address] [place] [address] PLT 292 K CUMM Normal 130-400 [facility] Comment on above: Order Comment: Items in this order include: Comprehensive Metabolic Panel, Lipid Panel, Vit D 25 [place] (Total), CBC with differential, , Testing Performed By: [facility] [address] [place] [address]. [place] [address] Dr. Kathy Jhaveri, Traffic Operator Performed By: #### C 215, C3763, C47, C8 #### [facility] [address] [place] [address] [address] [place] [address] RBC 4.30 M CUMM Normal 3.80-5.10 [facility] Comment on above: Order Comment: Items in this order include: Comprehensive Metabolic Panel, Lipid Panel, Vit D 25 [place] (Total), CBC with differential, , Testing Performed By: [facility] [address] [place] [address]. [place] [address] Dr. Kathy Jhaveri, Traffic Operator Performed By: #### C 215, C3763, C47, C8 #### [facility] [address] [place] [address] WBC 7.8 K CUMM Normal 3.8-10.6 [facility] Comment on above: Order Comment: Items in this order include: Comprehensive Metabolic Panel, Lipid Panel, Vit D 25 [place] (Total), CBC with differential, , Testing Performed By: [facility] [address] [place] [address]. [place] [address] Dr. Kathy Jhaveri, Traffic Operator Performed By: #### C 215, C3763, C47, C8 #### [facility] [address] [place] [address] [address] [place] [address] Comprehensive Metabolic Pane josé manuel 10-25-2020 Albumin [Mass/Vol] 4.9 g/dL Normal 3.5-5.0 [facility] Comment on above: Order Comment: Items in this order include: Comprehensive Metabolic Panel, Lipid Panel, Vit D 25 [place] (Total), CBC with differential, , Testing Performed By: [facility] [address] [place] [address]. [place] [address] Dr. Kathy Jhaveri, Traffic Operator Performed By: #### C 215, C3763, C47, C8 #### [facility] [address] [place] [address] [address] [place] [address] Alk Phos 79 U/L Normal 23-159 [facility] Comment on above: Order Comment: Items in this order include: Comprehensive Metabolic Panel, Lipid Panel, Vit D 25 [place] (Total), CBC with differential, , Testing Performed By: [facility] [address] [place] [address]. [place] [address] Dr. Kathy Jhaveri, Traffic Operator Performed By: #### C 215, C3763, C47, C8 #### [facility] [address] [place] [address] [address] [place] [address] ALT [Catalytic activity/Vol] 18 U/L Normal 0-38 [facility] Comment on above: Order Comment: Items in this order include: Comprehensive Metabolic Panel, Lipid Panel, Vit D 25 [place] (Total), CBC with differential, , Testing Performed By: [facility] [address] [place] [address]. [place] [address] Dr. Kathy Jhaveri, Traffic Operator Performed By: #### C 215, C3763, C47, C8 #### [facility] [address] [facility] [place] [address] AST [Catalytic activity/Vol] 27 U/L Normal 11-43 [facility] Comment on above: Order Comment: Items in this order include: Comprehensive Metabolic Panel, Lipid Panel, Vit D 25 [place] (Total), CBC with differential, , Testing Performed By: [facility] [address] [place] [address] Kathy Jhaveri, Traffic Operator Performed By: #### C 215, C3763, C47, C8 #### [facility], [facility]. [address] [place] [address] [place] [address] Bilirubin [Mass/Vol] 0.9 mg/dL Normal 0.2-1.3 [facility] Comment on above: Order Comment: Items in this order include: Comprehensive Metabolic Panel, Lipid Panel, Vit D 25 [place] (Total), CBC with differential, , Testing Performed By: [facility] [address] [place] [address] Kathy Jhaveri, Traffic Operator Performed By: #### C 215, C3763, C47, C8 #### [facility], [facility]. [address] [place] [address] [place] [address] Calcium [Mass/Vol] 9.9 mg/dL Normal 8.5-10.5 [facility] Comment on above: Order Comment: Items in this order include: Comprehensive Metabolic Panel, Lipid Panel, Vit D 25 [place] (Total), CBC with differential, , Testing Performed By: [facility] [address] [place] [address] Kathy Jhaveri, Traffic Operator Performed By: #### C 215, C3763, C47, C8 #### [facility], [facility]. [address] [place] [address] [address] [place] [address] Chloride [Moles/Vol] 100 mmol/L Normal 98-107 [facility] Comment on above: Order Comment: Items in this order include: Comprehensive Metabolic Panel, Lipid Panel, Vit D 25 [place] (Total), CBC with differential, , Testing Performed By: [facility] [address] [place] [address]. [place] [address] Dr. Kathy Jhaveri, Traffic Operator Performed By: #### C 215, C3763, C47, C8 #### [facility], [facility]. [address] [place] [address] [address] [place] [address] CO2 [Moles/Vol] 27.0 mmol/L Normal 21.0-32.0 [facility] Comment on above: Order Comment: Items in this order include: Comprehensive Metabolic Panel, Lipid Panel, Vit D 25 [place] (Total), CBC with differential, , Testing Performed By: [facility] [address] [place] [address] Kathy Jhaveri, Traffic Operator Performed By: #### C 215, C3763, C47, C8 #### [facility], [facility]. [address] [place] [address] [address] [place] [address] Creatinine [Mass/Vol] 0.7 mg/dL Normal 0.1-1.2 [facility] Comment on above: Order Comment: Items in this order include: Comprehensive Metabolic Panel, Lipid Panel, Vit D 25 [place] (Total), CBC with differential, , Testing Performed By: [facility] [address] [place] [address] Kathy Jhaveri, Traffic Operator Performed By: #### C 215, C3763, C47, C8 #### [facility], [facility]. [address] [place] [address] [address] [place] [address] GFR 96 mL/min per 1.73 Normal >60 [facility] Comment on above: Order Comment: Items in this order include: Comprehensive Metabolic Panel, Lipid Panel, Vit D 25 [place] (Total), CBC with differential, , Testing Performed By: [facility] [address] [place] [address] Kathy Jhaveri, Traffic Operator Result Comment: The GFR estimate is not adjusted for race. If the patient's race is -Mongolian, the GFR estimate must be multiplied by a factor of 1.21. Performed By: #### C 215, C3763, C47, C8 #### [facility] [address] [facility] [address] [place] [address] Glucose [Mass/Vol] 83 mg/dL Normal 74-100 [facility] Comment on above: Order Comment: Items in this order include: Comprehensive Metabolic Panel, Lipid Panel, Vit D 25 [place] (Total), CBC with differential, , Testing Performed By: [facility] [address] [place] [address]. [place] [address] Dr. Kathy Jhaveri, Traffic Operator Performed By: #### C 215, C3763, C47, C8 #### [facility], [facility]. [address] [place] [address] [place] [address] Potassium [Moles/Vol] 4.4 mmol/L Normal 3.5-5.3 [facility] Comment on above: Order Comment: Items in this order include: Comprehensive Metabolic Panel, Lipid Panel, Vit D 25 [place] (Total), CBC with differential, , Testing Performed By: [facility] [address] [place] [address]. [place] [address] Dr. Kathy Jhaveri, Traffic Operator Performed By: #### C 215, C3763, C47, C8 #### [facility], [facility]. [address] [place] [address] [place] [address] Protein [Mass/Vol] 7.5 g/dL Normal 6.3-8.4 [facility] Comment on above: Order Comment: Items in this order include: Comprehensive Metabolic Panel, Lipid Panel, Vit D 25 [place] (Total), CBC with differential, , Testing Performed By: [facility] [address] [place] [address] Kathy Jhaveri, Traffic Operator Performed By: #### C 215, C3763, C47, C8 #### [facility], [facility]. [address] [place] [address] [address] [place] [address] Sodium [Moles/Vol] 138 mmol/L Normal 135-145 [facility] Comment on above: Order Comment: Items in this order include: Comprehensive Metabolic Panel, Lipid Panel, Vit D 25 [place] (Total), CBC with differential, , Testing Performed By: [facility] [address] [place] [address]. [place] [address] Dr. Kathy Jhaveri, Traffic Operator Performed By: #### C 215, C3763, C47, C8 #### [facility] [address] [place] [address] [place] [address] Urea nitrogen [Mass/Vol] 11 mg/dL Normal 6-22 [facility] Comment on above: Order Comment: Items in this order include: Comprehensive Metabolic Panel, Lipid Panel, Vit D 25 [place] (Total), CBC with differential, , Testing Performed By: [facility] [address] [place] [address] Kathy Jhaveri, Traffic Operator Performed By: #### C 215, C3763, C47, C8 #### [facility] [address] [place] [address] [address] [place] [address] Lipid Panelon 10-25-2020 Cholesterol [Mass/Vol] 242 mg/dL High <200 [facility] Comment on above: Performed By: #### C 215, C3763, C47, C8 #### [facility] [address] [place] [address] [address] [place] [address] Cholesterol in HDL [Mass/Vol] 68 mg/dL Normal >50 [facility] Comment on above: Performed By: #### C 215, C3763, C47, C8 #### [facility] [address] [place] [address] [place] [address] Cholesterol in LDL [Mass/Vol] 160 mg/dL High <130 [facility] Comment on above: Performed By: #### C 215, C3763, C47, C8 #### [facility] [address] [place] [address] [place] [address] Cholesterol.total/Chol esterol in HDL [Mass ratio] 3.6 {ratio} Normal <4.0 [facility] Comment on above: Performed By: #### C 215, C3763, C47, C8 #### [facility] [address] [facility] [place] [address] Non-HDL Chol 174 Normal LDL Goal + 30 [facility] Comment on above: Result Comment: LDL and Non-HDL goal dependent upon individual risk Performed By: #### C 215, C3763, C47, C8 #### [facility] [address] [facility] [place] [address] Triglyceride [Mass/Vol] 69 mg/dL Normal <150 [facility] Comment on above: Performed By: #### C 215, C3763, C47, C8 #### [facility] [address] [place] [address] [address] [place] [address] VLDL-Calc 14 mg/dl Normal <30 [facility] Comment on above: Performed By: #### C 215, C3763, C47, C8 #### [facility] [address] [place] [address] [address] [place] [address] Vit D 25 [place] (Total)on 2020 Vit D 25 [place] (Total) 32.7 ng/ml Normal 31.0-100.0 [facility] Comment on above: Order Comment: Items in this order include: Comprehensive Metabolic Panel, Lipid Panel, Vit D 25 [place] (Total), CBC with differential, , Testing Performed By: [facility] [address] [place] [address]. [place] [address] Dr. Kathy Jhaveri, Traffic Operator Result Comment: Defi ciency <10 ng/ml Insufficiency 10-30 ng/ml Sufficiency 31-100 ng/ml Toxicity >100 ng/ml Performed By: #### C 215, C3763, C47, C8 #### [facility] [address] [place] [address] [place] [address] Patient Summaryon 01-10-2020 Patient Summary PATIENT DISCHARGE INSTRUCTIONS If you are having an emergency and are not able to reach your physician, CALL 911 or go to the nearest emergency room and take this document with you. [facility] 01/10/20 11:23 [address] [place]. [address] PATIENT INFORMATION Name: BRIGID BELLA Address: [address] [place] [id number] Age: 34 Years Phone: [phone] : 1985 12:00 MRN: [id number] Sex: Female Race: White Ethnicity: Not Hispan/Lat Admitted From: Clinic or [facility] Medical Service: Obstetric Nurse Unit/Bed: (MD) [facility] [id number] Admit Date: 01/08/2020 13:46 PCP: Physician, PCP [...] doses are changed, or new medications (including xabx-qsx-mdigyhb products) are added. Ask your doctor if [...] suicide hotline, anytime day or night, at 1-431-208-UXPE. It's easy to sign up for [place]: 1. Visit [email or web address] [place] 2. Click on [place] for [facility] 3. Verify your identity by entering your [...] your account, you'll be redirected to the [employer] login page. Login and check to see your results Questions? For help with account enrollment, call [facility] Customer Support at [phone] (toll-free) PATIENT EDUCATION Discharge Instructions for Mother [...] cracked, blistered or bleeding, call outpatient at [phone] ([phone]) for help. 5. Care of Perineum following [...] until 12 months or longer. ?? Call [phone] ([phone]) if any questions or concerns with ?? [...] delivery ? Depression ?Jaundice ?Domestic Violence Resources ?[facility] [place] Screening ?[facility] Hearing Development information ?[facility] Safe Sleep Environment Screening ?[facility]ening Brochure ??A Sound Beginning??. ?Shaken [...] information, talk with your doctor or call [phone] ( ). I have received a copy [...] you go home. HOME CARE INSTRUCTIONS ???Take broy-pei-fvbnkcg or prescription medicines only as directed by [...] Relationship to Patient Clinician Signature Date/Time Normal [facility] Syphilis Screenon 01-09-2020 T. pallidum Ab IA Ql (S) NONREAC Normal NONREAC [facility] Comment on above: Result Comment: No s erologic evidence of syphilis. Performed By: #### 3 9231-6 #### [facility] [address] [place] [address] Antibody Screen Interpretati on (T+S Compon 01-08-2020 Interpretation and review of laboratory results Negative Normal NEGATIVE-NEG ATIVE [facility] Comment on above: Performed By: #### 8 90-4, 882-1x1 #### JAYDEN REAL, [address] [place], [place]. Blood Typing ABO + Rh(D)on 0 01-08-2020 ABO and Rh group Nom (Bld) ABPOS Normal [facility] Comment on above: Performed By: #### 8 90-4, 882-1x1 #### [facility] REAL, [address] [facility]. CBCon 01-08-2020 Erythrocyte distribution width (RBC) [Entitic vol] 12.6 % Normal 11.0-14.8 [facility] Comment on above: Performed By: #### 2 4317-0 #### [facility], [address], [place]. Hematocrit (Bld) [Volume fraction] 35.4 % Normal 35.0-45.0 [facility] Comment on above: Performed By: #### 2 7-0 #### [facility], [address]. Hemoglobin (Bld) [Mass/Vol] 11.9 g/dL Low 12.0-16.0 [facility] Comment on above: Performed By: #### 2 7-0 #### [facility], [facility] [address], [place]. MCH (RBC) [Entitic mass] 30.6 Picograms Normal 27.0-34.0 [facility] Comment on above: Performed By: #### 2 7-0 #### [facility], [facility] [address]. MCHC (RBC) [Mass/Vol] 33.7 g/dL Normal 32.0-36.0 [facility] Comment on above: Performed By: #### 2 4317-0 #### [facility], [address], [place]. MCV (RBC) [Entitic vol] 91.0 fL Normal 80.0-97.0 [facility] Comment on above: Performed By: #### 2 4317-0 #### [facility], [address], [place]. Platelet mean volume (Bld) [Entitic vol] 12.1 fL Normal 6.2-12.1 [facility] Comment on above: Performed By: #### 2 4317-0 #### [facility], [address] [facility] [place], [place]. Platelets (Bld) [#/Vol] 186 thou/mcL Normal 142-424 [facility] Comment on above: Performed By: #### 2 4317-0 #### [facility], [address] [place], [place]. RBC (Bld) [#/Vol] 3.89 million/mcL Normal 3.80-5.10 [facility] Comment on above: Performed By: #### 2 4317-0 #### [facility], [address]. WBC (Bld) [#/Vol] 15.3 thou/mcL High 4.6-10.2 [facility] Comment on above: Performed By: #### 2 4317-0 #### [facility], [address] [place] [address]. Hold Clot (Blood Bank)on Other useful information NOTNEED Normal [facility] Comment on above: Performed By: #### 1 1111-6 #### [facility], [facility] [place]. Culture, urine Bacteria identified Cx Nom (U) Positive [facility] Work Phone: Vital Signs Date Time Vital Sign Value Performing Clinician Chuy irizarry 12-01-2024 15:13-040 Body height 165.[address] Yousuf Ortiz MD Work Phone: [facility] 12-01-2024 15:13-0400 Body mass index (BMI) [Ratio] 27.3 kg/m2 Dr. Yousuf Ortiz MD Work Phone: [facility] 12-01-2024 15:13-0400 Body weight 74.[address] Yousuf Ortiz MD Work Phone: [facility] 12-01-2024 15:13-0400 Diastolic blood pressure 69 mm[Hg] Dr. Yousuf Ortiz MD Work Phone: [facility] 12-01-2024 15:13-0400 Systolic blood pressure 108 mm[Hg] Dr. Yousuf Ortiz MD Work Phone: [facility] 11-24-2024 15:55-0400 Body height 165.[address] Yousuf Ortiz MD Work Phone: [facility] 11-24-2024 15:55-0400 Body mass index (BMI) [Ratio] 27.5 kg/m2 Dr. Yousuf Ortiz MD Work Phone: [facility] 11-24-2024 15:55-0400 Body weight 75.[address] Yousuf Ortiz MD Work Phone: [facility] 11-24-2024 15:55-0400 Diastolic blood pressure 84 mm[Hg] Dr. Yousuf Ortiz MD Work Phone: [facility] 11-24-2024 15:55-0400 Systolic blood pressure 123 mm[Hg] Dr. Yousuf Ortiz MD Work Phone: [facility] 11-16-2024 13:49-0400 Body height 165.[address] Yousuf Ortiz MD Work Phone: [facility] 11-16-2024 13:49-0400 Body mass index (BMI) [Ratio] 27.8 kg/m2 Dr. Yousuf Ortiz MD Work Phone: [facility] 11-16-2024 13:49-0400 Body weight 75.[address] Yousuf Ortiz MD Work Phone: [facility] 11-16-2024 13:49-0400 Diastolic blood pressure 73 mm[Hg] Dr. Yousuf Ortiz MD Work Phone: [facility] 11-16-2024 13:49-0400 Systolic blood pressure 113 mm[Hg] Dr. Yousuf Ortiz MD Work Phone: [facility] 11-11-2024 15:41-0400 Body height 165.[address] Yousuf Ortiz MD Work Phone: [facility] 11-11-2024 15:41-0400 Body mass index (BMI) [Ratio] 27.4 kg/m2 Dr. Yousuf Ortiz MD Work Phone: [facility] 11-11-2024 15:41-0400 Body weight 74.[address] Yousuf Ortiz MD Work Phone: [facility] 11-11-2024 15:41-0400 Diastolic blood pressure 78 mm[Hg] Dr. Yousuf Ortiz MD Work Phone: [facility] 11-11-2024 15:41-0400 Systolic blood pressure 120 mm[Hg] Dr. Yousuf Ortiz MD Work Phone: [facility] 10-28-2024 13:55-0400 Body height 165.[address] Yousuf Ortiz MD Work Phone: [facility] 10-28-2024 13:55-0400 Body mass index (BMI) [Ratio] 27.4 kg/m2 Dr. Yousuf Ortiz MD Work Phone: [facility] 10-28-2024 13:55-0400 Body weight 74.[address] Yousuf Ortiz MD Work Phone: [facility] 10-28-2024 13:55-0400 Diastolic blood pressure 69 mm[Hg] Dr. Yousuf Ortiz MD Work Phone: [facility] 10-28-2024 13:55-0400 Systolic blood pressure 111 mm[Hg] Dr. Yousuf Ortiz MD Work Phone: [facility] 10-12-2024 08:52-0400 Body height 165.[address] Yousuf Ortiz MD Work Phone: [facility] 10-12-2024 08:52-0400 Body mass index (BMI) [Ratio] 27.1 kg/m2 Dr. Yousuf Ortiz MD Work Phone: [facility] 10-12-2024 08:52-0400 Body weight 74.[address] Yousuf Ortiz MD Work Phone: [facility] 10-12-2024 08:52-0400 Diastolic blood pressure 62 mm[Hg] Dr. Yousuf Ortiz MD Work Phone: [facility] 10-12-2024 08:52-0400 Systolic blood pressure 103 mm[Hg] Dr. Yousuf Ortiz MD Work Phone: [facility] 09-29-2024 15:15-0400 Body height 165.[address] Yousuf Ortiz MD Work Phone: [facility] 09-29-2024 15:15-0400 Body mass index (BMI) [Ratio] 27.3 kg/m2 Dr. Yousuf Ortiz MD Work Phone: [facility] 09-29-2024 15:15-0400 Body weight 74.[address] Yousuf Ortiz MD Work Phone: [facility] 09-29-2024 15:15-0400 Diastolic blood pressure 74 mm[Hg] Dr. Yousuf Ortiz MD Work Phone: [facility] 09-29-2024 15:15-0400 Systolic blood pressure 107 mm[Hg] Dr. Yousuf Ortiz MD Work Phone: [facility] 08-31-2024 09:09-0400 Body mass index (BMI) [Ratio] 26 kg/m2 Dr. Yousuf Ortiz MD Work Phone: [facility] 08-31-2024 09:09-0400 Body weight 70.[address] Yousuf Ortiz MD Work Phone: [facility] 08-31-2024 09:09-0400 Diastolic blood pressure 71 mm[Hg] Dr. Yousuf Ortiz MD Work Phone: [facility] 08-31-2024 09:09-0400 Systolic blood pressure 107 mm[Hg] Dr. Yousuf Ortiz MD Work Phone: [facility] 08-03-2024 08:30-0400 Body mass index (BMI) [Ratio] 25.2 kg/m2 Dr. Yousuf Ortiz MD Work Phone: [facility] 08-03-2024 08:30-0400 Body weight 68.[address] Yousuf Ortiz MD Work Phone: [facility] 08-03-2024 08:30-0400 Diastolic blood pressure 64 mm[Hg] Dr. Yousuf Ortiz MD Work Phone: [facility] 08-03-2024 08:30-0400 Systolic blood pressure 102 mm[Hg] Dr. Yousuf Ortiz MD Work Phone: [facility] 07-05-2024 15:40-0500 Body mass index (BMI) [Ratio] 24.3 kg/m2 Dr. Yousuf Ortiz MD Work Phone: [facility] 07-05-2024 15:40-0500 Body weight 66.[address] Yousuf Ortiz MD Work Phone: [facility] 07-05-2024 15:40-0500 Diastolic blood pressure 68 mm[Hg] Dr. Yousuf Ortiz MD Work Phone: [facility] 07-05-2024 15:40-0500 Systolic blood pressure 101 mm[Hg] Dr. Yousuf Ortiz MD Work Phone: [facility] 06-03-2024 11:26-0500 Body mass index (BMI) [Ratio] 23.6 kg/m2 Dr. Yousuf Ortiz MD Work Phone: [facility] 06-03-2024 11:26-0500 Body weight 64.[address] Yousuf Ortiz MD Work Phone: [facility] 06-03-2024 11:26-0500 Diastolic blood pressure 76 mm[Hg] Dr. Yousuf Ortiz MD Work Phone: [facility] 06-03-2024 11:26-0500 Systolic blood pressure 113 mm[Hg] Dr. Yousuf Ortiz MD Work Phone: [facility] 08-23-2023 09:58-0400 Body temperature 97.2 [degF] Tita Houser [employer] Work Phone: [facility] 08-23-2023 09:58-0400 Body weight 61 kg Tita Houser [employer] Work Phone: [facility] 08-23-2023 09:58-0400 Diastolic blood pressure 65 mm[Hg] Tita Houser [employer] Work Phone: [facility] 08-23-2023 09:58-0400 Heart rate 64 /min Tita Houser [employer].DIRECT[employer] Work Phone: [facility] 08-23-2023 09:58-0400 Respiratory rate 18 /min Tita Houser [employer].DIRECTOR [employer] Work Phone: [facility] 08-23-2023 09:58-0400 SaO2% (BldA) [Mass fraction] 100 % Tita Houser [employer].DIRECT[employer] Work Phone: [facility] 08-23-2023 09:58-0400 Systolic blood pressure 100 mm[Hg] Tita Houser [employer].DIRECT[employer] Work Phone: [facility] 12-26-2022 08:34-0400 Body height 162.6 cm Jairo Romero MD Work Phone: [facility] 12-26-2022 08:34-0400 Body weight 62.14 kg Jairo Romero MD Work Phone: [facility] 12-26-2022 08:34-0400 Diastolic blood pressure 60 mm[Hg] Jairo Romero MD Work Phone: [facility] 12-26-2022 08:34-0400 Heart rate 58 /min Jairo Romero MD Work Phone: [facility] 12-26-2022 08:34-0400 Respiratory rate 16 /min Jairo Romero MD Work Phone: [facility] 12-26-2022 08:34-0400 SaO2% (BldA) [Mass fraction] 99 % Jairo Romero MD Work Phone: [facility] 12-26-2022 08:34-0400 Systolic blood pressure 90 mm[Hg] Jairo Romero MD Work Phone: [facility] 06-18-2022 09:20-0500 Body temperature 98.3 [degF] No Primary Care Physician [facility] 06-18-2022 09:20-0500 Diastolic blood pressure 57 mm[Hg] No Primary Care Physician [facility] 06-18-2022 09:20-0500 Heart rate 68 /min No Primary Care Physician [facility] 06-18-2022 09:20-0500 Respiratory rate 16 /min No Primary Care Physician [facility] 06-18-2022 09:20-0500 Systolic blood pressure 100 mm[Hg] No Primary Care Physician [facility] 06-17-2022 00:39-0500 Body height 165.1 cm No Primary Care Physician [facility] 06-17-2022 00:39-0500 Body mass index (BMI) [Ratio] 28.6 kg/m2 No Primary Care Physician [facility] 06-17-2022 00:39-0500 Body weight 78.1 kg No Primary Care Physician [facility] 06-13-2022 09:08-0500 Body mass index (BMI) [Ratio] 28.6 kg/m2 No Primary Care Physician [facility] 06-13-2022 09:08-0500 Body weight 78.13 kg No Primary Care Physician [facility] 06-13-2022 09:08-0500 Diastolic blood pressure 73 mm[Hg] No Primary Care Physician [facility] 06-13-2022 09:08-0500 Systolic blood pressure 109 mm[Hg] No Primary Care Physician [facility] 06-06-2022 13:12-0500 Body mass index (BMI) [Ratio] 28.4 kg/m2 No Primary Care Physician [facility] 06-06-2022 13:12-0500 Body weight 77.56 kg No Primary Care Physician [facility] 06-06-2022 13:12-0500 Diastolic blood pressure 80 mm[Hg] No Primary Care Physician [facility] 06-06-2022 13:12-0500 Systolic blood pressure 104 mm[Hg] No Primary Care Physician [facility] 05-30-2022 11:42-0500 Body mass index (BMI) [Ratio] 28.5 kg/m2 No Primary Care Physician [facility] 05-30-2022 11:42-0500 Body weight 77.62 kg No Primary Care Physician [facility] 05-30-2022 11:42-0500 Diastolic blood pressure 64 mm[Hg] No Primary Care Physician [facility] 05-30-2022 11:42-0500 Systolic blood pressure 112 mm[Hg] No Primary Care Physician [facility] 05-23-2022 09:57-0500 Body mass index (BMI) [Ratio] 28.1 kg/m2 No Primary Care Physician [facility] 05-23-2022 09:57-0500 Body weight 76.77 kg No Primary Care Physician [facility] 05-23-2022 09:57-0500 Diastolic blood pressure 74 mm[Hg] No Primary Care Physician [facility] 05-23-2022 09:57-0500 Systolic blood pressure 126 mm[Hg] No Primary Care Physician [facility] 05-09-2022 11:47-0500 Body mass index (BMI) [Ratio] 28 kg/m2 No Primary Care Physician [facility] 05-09-2022 11:47-0500 Body weight 76.37 kg No Primary Care Physician [facility] 05-09-2022 11:47-0500 Diastolic blood pressure 71 mm[Hg] No Primary Care Physician [facility] 05-09-2022 11:47-0500 Systolic blood pressure 103 mm[Hg] No Primary Care Physician [facility] 04-24-2022 12:38-0500 Body mass index (BMI) [Ratio] 27.1 kg/m2 No Primary Care Physician [facility] 04-24-2022 12:38-0500 Body weight 74.16 kg No Primary Care Physician [facility] 04-24-2022 12:38-0500 Diastolic blood pressure 74 mm[Hg] No Primary Care Physician [facility] 04-24-2022 12:38-0500 Systolic blood pressure 113 mm[Hg] No Primary Care Physician [facility] 04-07-2022 15:25-0500 Body mass index (BMI) [Ratio] 26.8 kg/m2 No Primary Care Physician [facility] 04-07-2022 15:25-0500 Body weight 73.19 kg No Primary Care Physician [facility] 04-07-2022 15:25-0500 Diastolic blood pressure 64 mm[Hg] No Primary Care Physician [facility] 04-07-2022 15:25-0500 Systolic blood pressure 98 mm[Hg] No Primary Care Physician [facility] 03-21-2022 11:55-0500 Body mass index (BMI) [Ratio] 26.4 kg/m2 No Primary Care Physician [facility] 03-21-2022 11:55-0500 Body weight 71.89 kg No Primary Care Physician [facility] 03-21-2022 11:55-0500 Diastolic blood pressure 56 mm[Hg] No Primary Care Physician [facility] 03-21-2022 11:55-0500 Systolic blood pressure 94 mm[Hg] No Primary Care Physician [facility] 02-21-2022 11:24-0400 Body mass index (BMI) [Ratio] 25 kg/m2 No Primary Care Physician [facility] 02-21-2022 11:24-0400 Body weight 68.2 kg No Primary Care Physician [facility] 02-21-2022 11:24-0400 Diastolic blood pressure 72 mm[Hg] No Primary Care Physician [facility] 02-21-2022 11:24-0400 Systolic blood pressure 109 mm[Hg] No Primary Care Physician [facility] 01-24-2022 11:30-0400 Body height 165.1 cm No Primary Care Physician [facility] Work Phone: 01-24-2022 11:28-0400 Body mass index (BMI) [Ratio] 24.3 kg/m2 No Primary Care Physician [facility] Work Phone: 01-24-2022 11:28-0400 Body weight 66.22 kg No Primary Care Physician [facility] Work Phone: 01-24-2022 11:28-0400 Diastolic blood pressure 74 mm[Hg] No Primary Care Physician [facility] Work Phone: 01-24-2022 11:28-0400 Systolic blood pressure 117 mm[Hg] No Primary Care Physician [facility] Work Phone: 12-24-2021 11:49-0400 Body temperature 99 [degF] Tita Houser [employer].DIRECTOR [employer] Work Phone: [facility] 12-24-2021 11:49-0400 Body weight 61.24 kg Tita Houser [employer].DIRECTOR [employer] Work Phone: [facility] 12-24-2021 11:49-0400 Diastolic blood pressure 64 mm[Hg] Tita Houser [employer].DIRECTOR [employer] Work Phone: [facility] 12-24-2021 11:49-0400 Heart rate 84 /min Tita Houser [employer].DIRECTOR [employer] Work Phone: [facility] 12-24-2021 11:49-0400 Respiratory rate 16 /min Tita Houser [employer].DIRECTOR [employer] Work Phone: [facility] 12-24-2021 11:49-0400 SaO2% (BldA) [Mass fraction] 99 % Tita Houser [employer].DIRECTOR [employer] Work Phone: [facility] 12-24-2021 11:49-0400 Systolic blood pressure 110 mm[Hg] Tita Houser [employer].DIRECTOR [employer] Work Phone: [facility] 12-20-2021 11:52-0400 Body mass index (BMI) [Ratio] 22.5 kg/m2 No Primary Care Physician [facility] Work Phone: 12-20-2021 11:52-0400 Body weight 61.46 kg No Primary Care Physician [facility] Work Phone: 12-20-2021 11:52-0400 Diastolic blood pressure 62 mm[Hg] No Primary Care Physician [facility] Work Phone: 12-20-2021 11:52-0400 Systolic blood pressure 100 mm[Hg] No Primary Care Physician [facility] Work Phone: 11-21-2021 15:03-0400 Body height 165.[address] Sheyla Small Work Phone: [facility] Work Phone: 11-21-2021 15:03-0400 Body mass index (BMI) [Ratio] 22 kg/m2 Dr. Sheyla Small Work Phone: [facility] Work Phone: 11-21-2021 15:03-0400 Body weight 59.[address] Sheyla Small Work Phone: [facility] Work Phone: 11-21-2021 15:03-0400 Diastolic blood pressure 60 mm[Hg] Dr. Sheyla Small Work Phone: [facility] Work Phone: 11-21-2021 15:03-0400 Systolic blood pressure 100 mm[Hg] Dr. Sheyla Small Work Phone: [facility] Work Phone: Encounters Encounter Date Encounter Type Care Provider Facility Start: 12-05-2024 ambulatory Yousuf Ortiz Facility :[facility] Start: 12-01-2024 ambulatory Radha Valverde Facility :[facility] Start: 12-01-2024 End: 12-01-2024 Patient encounter procedure Radha Valverde [facility] Work Phone: Start: 12-01-2024 End: 12-01-[address] Yousuf Ortiz MD Work Phone: -[facility] Start: 11-24-2024 End: 11-24-2024 Patient encounter procedure Radha Valverde CNM -[facility] Work Phone: Start: 11-24-2024 End: 11-24-[address] Yousuf Ortiz MD Work Phone: -[facility] Start: 11-22-2024 End: 11-22-[address] Yousuf Ortiz MD Work Phone: -Ultrasound [facility] Start: 11-22-2024 End: 11-22-[address] Linda Mcconnell MD -[facility] Work Phone: Start: 11-22-2024 End: 11-22-2024 ambulatory Linda Mcconnell Facility:[facility] Start: 11-16-2024 End: 11-16-[address] Linda Mcconnell MD -[facility] Work Phone: Start: 11-16-2024 End: 11-16-[address] Yousuf Ortiz MD Work Phone: [facility] Start: 11-14-2024 End: 11-14-[address] Yousuf Ortiz MD Work Phone: -Ultrasound [facility] Start: 11-14-2024 End: 11-14-2024 Patient encounter procedure Radha Valverde CNM -[facility] Work Phone: Start: 11-14-2024 End: 11-14-2024 ambulatory Radha Valverde Facility:[facility] Start: 11-11-2024 End: 11-11-2024 Patient encounter procedure Radha Valverde CNM -[facility] Work Phone: Start: 11-11-2024 End: 11-11-[address] Yousuf Ortiz MD Work Phone: [facility] Start: 11-11-2024 End: 11-11-2024 ambulatory Radha Valverde Facility:[facility] Start: 11-02-2024 End: 11-02-[address] Yousuf Ortiz MD Work Phone: [facility]trasound [facility] Start: 11-02-2024 End: 11-02-[address] Sheyla Small DO [facility] Work Phone: Start: 11-02-2024 End: 11-02-2024 ambulatory Sheyla Small Facility:[facility] Start: 10-28-2024 End: 10-28-[address] Sheyla Small DO -[facility] Work Phone: Start: 10-28-2024 End: 10-28-[address] Yousuf Ortiz MD Work Phone: [facility] Start: 10-12-2024 End: 10-12-[address] Sheyla Small DO -[facility] Work Phone: Start: 10-12-2024 End: 10-12-[address] Yousuf Ortiz MD Work Phone: [facility] Work Phone: Start: 09-29-2024 End: 09-29-2024 Patient encounter procedure Radha LEE -[facility] Work Phone: Start: 09-29-2024 End: 09-29-[address] Yousuf Ortiz MD Work Phone: [facility] Work Phone: Start: 08-31-2024 End: 08-31-[address] Linda Mcconnell MD -[facility] Work Phone: Start: 08-31-2024 End: 08-31-2024 ambulatory Linda Mcconnell Facility:[facility] Start: 08-31-2024 End: 08-31-2024 ambulatory Linda Heididona Facility:[facility] Start: 08-03-2024 End: 08-03-2024 Patient encounter procedure Micaela Peterson [employer] -[facility] Work Phone: Start: 08-03-2024 End: 08-03-2024 ambulatory Micaela Peterson Facility:[facility] Start: 07-28-2024 End: 07-28-2024 ambulatory KOBE Greco CABAN [facility] Start: 07-05-2024 End: 07-05-[address] Sheyla Small DO -[facility] Work Phone: Start: 07-05-2024 End: 07-05-2024 ambulatory Sheyla Small Facility:[facility] Start: 06-03-2024 End: 06-03-2024 Patient encounter procedure Trish Murray CNM -Laboratory Work Phone: Start: 06-03-2024 End: 06-03-2024 Patient encounter procedure Trish Murray CNM -[facility] Work Phone: Start: 06-03-2024 End: 06-03-2024 ambulatory Yousuf Angel Facility:[facility] Start: 06-03-2024 End: 06-03-2024 ambulatory Yousuf Angel Facility:[facility] Start: 03-09-2024 End: 03-09-2024 ambulatory Yousuf Dunsmuir Facility:[facility] Start: 02-24-2024 End: 02-24-2024 ambulatory Yousuf Angel Facility:[facility] Start: 02-24-2024 End: 02-24-2024 ambulatory Yousuf Dunsmuir Facility:[facility] Start: 08-23-2023 End: 08-23-2023 ambulatory JAIRO ROMERO Facility:[facility] Start: 08-23-2023 End: 08-23-2023 Patient encounter procedure Tita Houser APRN.DIRECTOR [employer] Work Phone: [facility] Comment on above: Conjunctivitis of ri ght eye, unspecified conjunctivitis type (Primary Dx); URI, acute Start: 06-29-2023 Telephone encounter Faraz Romero MD Work Phone: [facility] Comment on above: Results Start: 06-19-2023 End: 06-20-2023 ambulatory JAIRO ROMERO Facility:[facility] Start: 06-19-2023 Patient encounter procedure JAIRO ROMERO [facility] Start: 03-20-2023 End: 03-21-2023 ambulatory JAIRO ROMERO Facility:[facility] Start: 03-13-2023 End: 03-14-2023 ambulatory GAL Lit ROMERO Facility:[facility] Start: 12-26-2022 End: 12-26-2022 ambulatory JAIRO ROMERO Facility:[facility] Start: 12-26-2022 End: 12-26-2022 Patient encounter procedure Jairo Romero MD Work Phone: [facility] Comment on above: Melasma (Primary Dx) ; Encounter to establish care; Depression screening Start: 06-18-2022 Non-patient / Non-visit No Azra prince Care Physician [facility] Start: 06-17-2022 Non-patient / Non-visit No [facility] Care Physician [facility] Start: 06-17-2022 End: 06-18-2022 Evaluation and management of inpatient No Primary Care Physician [facility] Start: 06-13-2022 End: 06-13-2022 Patient encounter procedure No Primary Care Physician [facility] Start: 06-06-2022 End: 06-06-2022 Patient encounter procedure No Primary Care Physician [facility] Start: 05-30-2022 End: 05-30-2022 Patient encounter procedure No Primary Care Physician [facility] Start: 05-23-2022 End: 05-23-2022 Patient encounter procedure No Primary Care Physician [facility] Start: 05-23-2022 End: 05-23-2022 Patient encounter procedure No Primary Care Physician [facility] Start: 05-09-2022 End: 05-09-2022 Patient encounter procedure No Primary Care Physician [facility] Start: 04-24-2022 End: 04-24-2022 Patient encounter procedure No Primary Care Physician [facility] Start: 04-07-2022 End: 04-07-2022 Patient encounter procedure No Primary Care Physician [facility] Start: 03-21-2022 End: 03-21-2022 Patient encounter procedure No Primary Care Physician [facility] Start: 02-21-2022 End: 02-21-2022 Patient encounter procedure No Primary Care Physician [facility] Start: 01-24-2022 End: 01-24-2022 ambulatory No Primary Care Physician [facility] Work Phone: Start: 01-24-2022 End: 01-24-2022 Patient encounter procedure No Primary Care Physician [facility] Start: 12-24-2021 End: 12-24-2021 Patient encounter procedure Tita Houser APRN.CNP Work Phone: [facility] Comment on above: Headache, unspecifie d headache type (Primary Dx); Viral illness Start: 12-20-2021 End: 12-20-2021 Patient encounter procedure No Primary Care Physician [facility] Start: 12-06-2021 End: 12-06-[address] Sheyla Small Work Phone: [facility] Start: 11-21-2021 End: 11-21-[address] Sheyla Small Work Phone: [facility] Spec[facility] Start: 11-21-2021 End: 11-21-[address] Sheyla Small Work Phone: [facility] Start: 12-24-2020 End: 12-24-2020 ambulatory KATHY RIVERA [facility] Start: 12-24-2020 End: 12-24-2020 Office outpatient new 45 minutes Kathy Rivera MD Work Phone: [facility] Comment on above: Melasma (Primary Dx) ; Dermal nevus of left cheek; Osborne angioma Start: 10-26-2020 End: 10-26-2020 Transcribe Orders Maira Lai [facility] Comment on above: Melasma [...] et rgnt auto w/o microscopy Tita Houser DRAWER [employer].DIRECTOR [employer] Work Phone: [facility] B Streptococcu s Culture No Primary Care Physician Urine culture Dr. Sheyla Polk Work Phone: Plan of Treatment Date Care Activity Detail Author Start: 04-07-2032 Urine microalbumin profile [facility] Start: 11-09-2029 Tetanus vaccination Tetanus: Every 1 0yrs [facility] Start: 11-22-2024 Ultrasonography for antepartum monitoring of fetus [facility] Start: 03-20-2024 Covid-19 Vaccine () Covid-19 Vaccine () [facility] Comment on above: Postponed from 01/02 (Declined at this time) Start: 03-20-2024 HIV screening HIV Screening [facility] Comment on above: Postponed from 04/26 (Declined at this time) Start: 03-20-2024 Screening for malign ant neoplasm of cervix [facility] Comment on above: Postponed from 04/26 (Declined at this time) Postponed from 04/26 (Declined at this time) Start: 12-27-2023 COVID-19 VACCINE (3 - Booster for Roxana series) COVID-19 VACCINE (3 - Booster for Roxana series) [facility] Comment on above: Postponed from 05/16 (Declined at this time) Start: 05-04-2023 Behavioral Health Screening Behavioral Health Screening [facility] Start: 05-04-2023 Depression Assessment Depression Ass essment [facility] Start: 02-25-2023 End: 04-27-2023 CBC W Auto Differential panel - Blood CBC + DIFF Lab Routine Encounter to establish care Expected: 02/25/2023, Expires: 04/27/2023 [facility] Work Phone: Comment on above: Expected: 02/25/2023 , Expires: 04/27/2023 Start: 02-25-2023 End: 04-27-2023 Comprehensive metabolic 2000 panel - Serum or Plasma COMP METABOLIC PANEL Lab Routine Encounter to establish care Expected: 02/25/2023, Expires: 04/27/2023 [facility] Work Phone: Comment on above: Expected: 02/25/2023 , Expires: 04/27/2023 Start: 02-25-2023 End: 04-27-2023 Lipid 1996 panel - Serum or Plasma LIPID PANEL BASIC Lab Routine Encounter to establish care Expected: 02/25/2023, Expires: 04/27/2023 [facility] Work Phone: Comment on above: Expected: 02/25/2023 , Expires: 04/27/2023 Start: 01-02-2023 Influenza vaccination INFLUENZA (#1) [facility] Start: 06-18-2022 Patient discharge [facility] Start: 06-17-2022 Administration of medication [facility] Start: 06-17-2022 Application of ice c ollar, cap or bag [facility] Start: 06-17-2022 Catheterization of vein [facility] Start: 06-17-2022 Introduction of urin oniel catheter [facility] Start: 06-17-2022 Measuring intake and output [facility] Start: 06-17-2022 Notification of physician [facility] Start: 06-17-2022 Procedure discontinued [facility] Start: 06-17-2022 Provision of activit y privileges [facility] Start: 06-17-2022 Vital signs measurements [facility] Start: 06-17-2022 [facility] Start: 06-17-2022 Admission procedure [facility] Start: 06-17-2022 Verification routine [facility] Start: 01-02-2022 Influenza vaccination INFLUENZA (#1) [facility] Start: 12-24-2021 End: 01-07-2022 Influenza virus A and B RNA and SARS-CoV-2 (COVID-19) N gene panel - Respiratory specimen by SINA with probe detection [facility] Work Phone: Comment on above: Expected: 12/24/2021 , Expires: 01/07/2022 Start: 01-02-2021 Influenza vaccination Sequenti al Influenza Vaccine (#1) [facility] Start: 2016 HPV TESTING HPV TESTING [facility] Start: 2007 PAP TESTING PAP TESTING [facility] Start: 2004 Hepatitis C screening Hepatitis C [facility] Start: 2004 HEPATITIS C SCREENING HEPATITIS C [facility] Start: 2004 HIV SCREENING HIV SCREENING [facility] Start: 07-06-2002 Urine microalbumin profile DTA P,TDAP,TD (6 - Tdap) [facility] Start: 2001 HIV screening HIV Screening [facility] Start: 1998 Depression screening using PHQ-9 (Patient Health Questionnaire 9) score [facility] Start: 1989 History and physical examination, annual for health maintenance Wellness Visit [facility] Start: 1986 COVID-19 VACCINE (#1) COVID-19 VACCI NE (#1) [facility] Start: 1986 Screening for malign ant neoplasm of cervix Pap Smear [facility] Biophysical pr ofile panel US [facility] Patient referral [facility] Work Phone: Streptococcus agalac tiae [Presence] in Unspecified specimen by Organism specific culture [facility] Ultrasonography for antepartum monitoring of fetus [facility] Ultrasonography for antepartum monitoring of fetus [facility] Ultrasonography for antepartum monitoring of fetus [facility] Ultrasound scan for growth [facility] Ultrasound scan for growth [facility] Immunizations Immunization Date Immunization Notes Care Provider Fa cility 09-29-2024 tetanus toxoid, redu faisla diphtheria toxoid, and acellular pertussis vaccine, adsorbed Dr. Yousuf rOtiz MD Work Phone: [facility] 02-24-2024 influenza, injectabl e, madin pilar canine kidney, preservative free Dr. Yousuf Ortiz MD Work Phone: [facility] 03-20-2023 influenza, injectabl e, quadrivalent, contains preservative Jairo Romero MD Work Phone: [facility] 03-20-2023 influenza, injectabl e, quadrivalent, preservative free Dr. Yousuf Ortiz MD Work Phone: [facility] 04-07-2022 tetanus toxoid, redu faisal diphtheria toxoid, and acellular pertussis vaccine, adsorbed No Primary Care Physician [facility] 02-21-2022 influenza, injectabl e, quadrivalent, preservative free Dr. Yousuf Ortiz MD Work Phone: [facility] 02-21-2022 influenza, seasonal, injectable No Primary Care Physician [facility] 03-21-2021 Covid (Moderna) Dr. Yousuf randall MD Work Phone: [facility] 08-02-2020 Covid (Diogo & Diogo) Dr. Yousuf Ortiz MD Work Phone: [facility] 03-20-2020 influenza, injectabl e, quadrivalent, preservative free Jairo Romero MD Work Phone: [facility] 11-10-2019 tetanus toxoid, redu faisal diphtheria toxoid, and acellular pertussis vaccine, adsorbed Jairo Romero MD Work Phone: [facility] 05-27-2019 Influenza, injectabl e, Madin Hornick Canine Kidney, preservative free, quadrivalent Jairo Romero MD Work Phone: [facility] 07-10-2014 tetanus toxoid, redu faisal diphtheria toxoid, and acellular pertussis vaccine, adsorbed Jairo Romero MD Work Phone: [facility] 05-30-2005 hepatitis A vaccine, pediatric/adolescent dosage, [address] Yousuf Ortiz MD Work Phone: [facility] 05-30-2005 hepatitis A vaccine, unspecified formulation Tita Houser APRN.CNP Work Phone: [facility] Work Phone: 12-06-2004 meningococcal polysaccharide vaccine (MPSV4) Dr. Yousuf Ortiz MD Work Phone: [facility] 12-06-2004 Meningococcal, MCV4, unspecified conjugate formulation(groups A, C, Y and W-135) Tita Houser DRAWER LINER.DIRECTOR [employer] Work Phone: [facility] 07-05-2002 TD(adult) unspecifie d formulation Jairo Romero MD Work Phone: [facility] 07-05-2002 tetanus and diphther ia toxoids, adsorbed, preservative free, for adult use (2 Lf of tetanus toxoid and 2 Lf of diphtheria toxoid) Tita Houser DRAWER LINER.DIRECTOR [employer] Work Phone: [facility] 05-04-2000 hepatitis A vaccine, adult dosage Jairo Romero MD Work Phone: [facility] 05-04-2000 tetanus toxoid, adsorbed Jairo Romero MD Work Phone: [facility] 04-29-1999 hepatitis B vaccine, pediatric or pediatric/adolescent dosage Tita Houser DRAWER LINER.DIRECTOR [employer] Work Phone: [facility] 11-28-1998 hepatitis B vaccine, pediatric or pediatric/adolescent dosage Tita Houser DRAWER LINER.DIRECTOR [employer] Work Phone: [facility] 10-03-1998 hepatitis B vaccine, pediatric or pediatric/adolescent dosage Tita Houser DRAWER LINER.DIRECTOR [employer] Work Phone: [facility] 10-03-1998 measles, mumps and rubella virus vaccine Tita Houser DRAWER LINER.DIRECTOR [employer] Work Phone: [facility] 09-28-1991 diphtheria, tetanus toxoids and acellular pertussis vaccine Dr. Yousuf Ortiz MD Work Phone: [facility] 09-28-1991 diphtheria, tetanus toxoids and pertussis vaccine Tita Houser DRAWER LINER.DIRECTOR [employer] Work Phone: [facility] 09-28-1991 trivalent poliovirus vaccine, live, oral Tita Houser DRAWER LINER.DIRECTOR [employer] Work Phone: [facility] 05-01-1988 diphtheria, tetanus toxoids and acellular pertussis vaccine Dr. Yousuf Ortiz MD Work Phone: [facility] 05-01-1988 diphtheria, tetanus toxoids and pertussis vaccine Tita Houser DRAWER LINER.DIRECTOR [employer] Work Phone: [facility] 05-01-1988 trivalent poliovirus vaccine, live, oral Tita Houser DRAWER LINER.DIRECTOR [employer] Work Phone: [facility] 12-21-1987 haemophilus influenz ae type b vaccine, PRP-D conjugate Tita Houser DRAWER LINER.DIRECTOR [employer] Work Phone: [facility] 12-21-1987 haemophilus influenz ae type b vaccine, PRP-T conjugate Dr. Yousuf Ortiz MD Work Phone: [facility] 09-14-1987 measles, mumps and rubella virus vaccine Tita Houser DRAWER LINER.DIRECTOR [employer] Work Phone: [facility] 04-21-1987 trivalent poliovirus vaccine, live, oral Tita Houser DRAWER LINER.DIRECTOR [employer] Work Phone: [facility] 1986 diphtheria, tetanus toxoids and acellular pertussis vaccine Dr. Yousuf Ortiz MD Work Phone: [facility] 1986 diphtheria, tetanus toxoids and pertussis vaccine Tita Houser DRAWER LINER.DIRECTOR [employer] Work Phone: [facility] 1986 diphtheria, tetanus toxoids and acellular pertussis vaccine Dr. Yousuf Ortiz MD Work Phone: [facility] 1986 diphtheria, tetanus toxoids and pertussis vaccine Tita Houser DRAWER LINER.DIRECTOR [employer] Work Phone: [facility] 1986 trivalent poliovirus vaccine, live, oral Tita Houser DRAWER LINER.DIRECTOR [employer] Work Phone: [facility] 1986 diphtheria, tetanus toxoids and acellular pertussis vaccine Dr. Yousuf Ortiz MD Work Phone: [facility] 1986 diphtheria, tetanus toxoids and pertussis vaccine Tita Houser APRN.DIRECTOR [employer] Work Phone: [facility] 1986 trivalent poliovirus vaccine, live, oral Jairo Romero MD Work Phone: [facility] Payers Date Payer Category Payer Unknown [id number] 2024 Self-pay [id number] 2021 Private Health Insurance [id number] 2021 Private Health Insurance [id number]. [id number] 1986 Unknown [id number] 2.16.840.1.357414.3.579.2. 903 1986 Unknown [id number] 2.16.840.1.867962.3.579.2. 479 Unknown [facility]* [id number] Effective for all dates [address] [address] [place] [address] [id number]. [id number] Unknown [id number] Unknown [id number] Unknown [id number] 2.16.840.1.490349.3.579.2. 462 Unknown [id number] 2.16.840.1.417027.3.579.2. 462 Unknown [id number] 2.16.840.1.141971.3.579.2. 462 Unknown [id number] 2.16.840.1.632529.3.579.2. 462 Unknown [id number] 2.16.840.1.181902.3.579.2. 462 Unknown [id number] 2.840.1.692807.3.579.2. 462 Unknown [id number] 2.840.1.024836.3.579.2. 462 Unknown [id number] 2.840.1.362023.3.579.2. 462 Unknown [id number] .840.1.878597.3.579.2. 462 Unknown [id number] 2.840.1.682831.3.579.2. 462 Unknown [id number] .0.1.550887.3.579.2. 462 Unknown [id number] 2.840.1.911469.3.579.2. 462 Unknown [id number] .840.1.942271.3.579.2. 462 Unknown [id number] .0.1.211621.3.579.2. 462 Unknown 2002 .0.1.205924.3.579.2. 462 Unknown [id number] 06.19.830.1.761295.3.579.2. 462 Unknown [id number] .840.1.277527.3.579.2. 462 Unknown [id number] 840.1.610305.3.579.2. 462 Unknown [id number] 06.19.830.1.213569.3.579.2. 462 Unknown [id number] 06.19.830.1.367873.3.579.2. 462 Unknown [id number] 06.19.830.1.042029.3.579.2. 462 Unknown [id number] 06.19.830.1.092113.3.579.2. 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 (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) [facility] Start: 12-14-2021 End: 12-24-2021 Exposure to SARS-CoV-2 (event) Yes [facility] Start: 12-26-2022 End: 08-23-2023 Alcohol intake Current drinker of alcohol (finding) [facility] Start: 12-26-2022 End: 08-23-2023 History of Social function [facility] Work Phone: Start: 12-26-2022 End: 08-23-2023 Tobacco use panel [facility] Work Phone: Adult Depression Screening Assessment 0 [facility] Work Phone: Start: 12-26-2022 Alcohol Comment 1-2 drinks per month [facility] Start: 09-13-2022 Gender identity Identifies as female gender (finding) [facility] Goals Date Patient Goal Desired Activity /State Clinical Notes 12-24-2020 to 11-25-2024 Note Date & Type Note Facility 11-25-2024 Radiology Diagnostic study note [facility] Imaging Services [address] [place], [place] [id number] OB Limited (No Biometrics) MR#: [id number] Acct: [id number] Name: BRIGID BELLA Rep #: [id number] : 1985 F 39 From: Manan Iqbal MD PCP: Dr. Yousuf Ortiz MD Status: REG CLI Study:OB Limited (No Biometrics) Date of Exam : 11/22/24 Exam# [id number] Ordering Dr: Linda Salgado MD PROCEDURE: OB [...] fluid index of 9.7 cm. Reading Location: [id number] CC: Dr. Yousuf Ortiz MD; Dr. Linda Mcconnell MD ~ Associate Professor Computer Science: Signed [facility] 11-24-[address] [facility] 11-24-2024 Progress note Note Date/Time November 24, 2024 4:12pm [facility] [address], [address] [place] [address] OFFICE VISIT Date of Service: 11/24/24 MR#: [id number] Acct: [id number] Name: BRIGID BELLA Rep #: [id number] : 1985 Provider: LIMA Valverde Age/Sex: 39/F Location[place] [facility] Status: Signed Intake Vital Signs 10/28/24 13:55 11/16/24 13:49 11/24/24 15:55 Height 5 ft 5 in 5 ft 5 in 5 ft 5 in Weight: 167 lb 165 lb 8 oz BMI 27.8 27.5 BP 113/73 123/84 H Intake Visit Reasons: 38 wk ob Chief Complaint: 38wk OB Algology Teacher Required: No Is patient in pain?: [...] umbilical cord Supervision of normal Surgical History Partridge teeth extracted No pertinent past surgical history [...] current occupational 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 Date Name GA/Weeks Outcome Route Bth Weight Infant Gen Labor Lgth Anesthesia Del Locatn Provider FOB Unknown 01/08/20 John 40 live - full term 7# 10oz M veronica 12 hours none [place], [place] Dr. Ibeth Carlos 06/17/22 Kevin 40 live - full term 8lbs 1oz Male n one [facility] Trish Murray CNM Terrance Delivery Date: 06/17/22 [...] nip t. anatomy us ordered. works in [employer] and [facility]. 08/03/24 -?-?-?-?-?-?-?-?-?-?-?-?- 21w 6d 152 lb (+10 lb) 102/64 Negative -?-?-?-?-?-?-?-?-?-?-?-?- Negative 136 -?-?-?-?-?-?-?-?-?-?-?-?- MH-No VB. Angella garcia. Nl anatomy reviewed. Some gastric reflux/pepcid 08/31/24 -?-?-?-?-?-?-?-?-?-?-?-?- 25w 6d 156 lb 6 oz (+14 lb 6 oz) 107/71 Negative -?-?-?-?-?-?-?-?-?-?-?-?- Negative 140 -?-?-?-?-?-?-?-?-?-?-?-?- SM- no vb craariellei ng good fm. [place] 09/29/24 -?-?-?-?-?-?-?-?-?-?-?-?- 30w 0d 164 [...] Monitoring, Signs and Symptoms of Preeclampsia and [place] Education ROS Const Reports system reviewed and [...] of other normal , second trimester Comment: [id number], JAZMIN 12/08/24, surprise Kevin Adams, Terrance (5) [...] this visit. GA appropriate handout given. 11/24/24 3022 <Electronically signed by Radha dalal CNM> Date _ Radha Valverde CNM [facility] Signature: Date (if applicable) CC: ~ [facility] Work Phone: 1(673) 496-349307-16-2025 Progress [facility] [address] [place] [address], [address] [place] [address] OFFICE VISIT Date of Service: 11/16/24 MR#: [id number] Acct: [id number] Name: BRIGID BELLA Rep #: [id number] : 1985 Provider: Dr. 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 Date Name GA/Weeks Outcome Route Bth Weight Infant Gen Labor Lgth Anesthesia Del Locatn Provider FOB Unknown 01/08/20 John 40 live - full term 7# 10oz M veronica 12 hours none [place], [place] Dr. Ibeth Carlos 06/17/22 Embudo 40 live - full term 8lbs 1oz Male n one [facility] Trish Murray CNM Terrance Delivery Date: 06/17/22 [...] nip t. anatomy us ordered. works in [employer] and wants anatomy scan in [place]. 08/03/24 -?-?-?-?-?-?-?-?-?-?-?-?- 21w 6d 152 lb (+10 lb) 102/64 Negative -?-?-?-?-?-?-?-?-?-?-?-?- Negative 136 -?-?-?-?-?-?-?-?-?-?-?-?- MH-No VB. Angella garcia. Nl anatomy reviewed. Some gastric reflux/pepcid 08/31/24 -?-?-?-?-?-?-?-?-?-?-?--?- 25w 6d 156 lb 6 oz (+14 lb 6 oz) 107/71 Negative -?-?-?-?-?-?-?-?-?-?-?-?- Negative 140 -?-?-?-?-?-?-?-?-?-?-?-?- SM- no vb jamari narayan good fm. travleing to the [place] next week 09/29/24 -?-?-?-?-?-?-?-?-?-?-?-?- 30w 0d 164 [...] of other normal , second trimester Comment: [id number], JAZMIN 12/08/24, surprise Kevin Adams, Terrance (3) [...] monserrat MONAE> Date _ Linda Mcconnell MD [facility] Signature: Date (if applicable) CC: ~ [facility] [id number] Progress note Author Linda Mcconnell [facility] Note Date/Time November 16, 2024 2:36 pm [facility] [address] [place] [address], [address] [place] [address] OFFICE VISIT Date of Service: 11/16/24 MR#: [id number] Acct: [id number] Name: BRIGID BELLA Rep #: [id number] : 1985 Provider: Dr. 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 Date Name GA/Weeks Outcome Route Bth Weight Infant Gen Labor Lgth Anesthesia Del Locatn Provider FOB Unknown 01/08/20 John 40 live - full term 7# 10oz M veronica 12 hours none [place] Dr. Ibeth Carlos 06/17/22 Embudo 40 live - full term 8lbs 1oz Male n one [facility] Trish Murray CNM Terrance Delivery Date: 06/17/22 [...] nip t. anatomy us ordered. works in [email or web address] and wants anatomy scan in [place]. 08/03/24 -?-?-?-?-?-?-?-?-?-?-?-?- 21w 6d 152 lb (+10 lb) 102/64 Negative -?-?-?-?-?-?-?-?-?-?-?-?- Negative 136 -?-?-?-?-?-?-?-?-?-?-?-?- MH-No VB. Angella garcia. Nl anatomy reviewed. Some gastric reflux/pepcid 08/31/24 -?-?-?-?-?-?-?-?-?-?-?--?- 25w 6d 156 lb 6 oz (+14 lb 6 oz) 107/71 Negative -?-?-?-?-?-?-?-?-?-?-?-?- Negative 140 -?-?-?-?-?-?-?-?-?-?-?-?- SM- no vb jamari deluna fm. travleing to the [place] next week 09/29/24 -?-?-?-?-?-?-?-?-?-?-?-?- 30w 0d 164 [...] Monitoring, Signs and Symptoms of Preeclampsia and [place] Education Results POC Urinalysis 2 Dip (Clinic) [...] of other normal , second trimester Comment: [id number], JAZMIN 12/08/24, surprise PC Kevin Lopez, Terrance [...] POC Urinalysis 2 Dip (Clinic) Today 11/16/24 3806 <Electronically signed by Linda german MD> Date _ Linda Mcconnell MD Cosigner Signature: Date (if applicable) CC: ~ [facility] Work Phone: 1(237) 772-658107-15-2025 Radiology Diagnostic study note [facility] Imaging Services [address] [place] [address] OB Limited (No Biometrics) MR#: [id number] Acct: [id number] Name: BRIGID BELLA Rep #: [id number] : 1985 F 39 From: Ildefonso Rowe MD PCP: Dr. Yousuf Ortiz MD Status: REG CLI Study:OB Limited (No Biometrics) Date of Exam : 11/14/24 Exam# [id number] Ordering Dr: Radha Valverde CNM PROCEDURE: OB [...] is lower limits of normal. Reading Location: [facility] CC: LIMA Valverde; Dr. Yousuf Ortiz MD ~ Associate Professor Computer Science: Signed [facility]07-06-2025 Radiology Diagnostic study note [facility] Imaging Services [address] [place], [place] [address] OB Limited With Biometrics MR#: [id number] Acct: [id number] Name: BRIGID BELLA Rep #: [id number] : 1985 F 39 From: Pet er Peer DO PCP: Dr. Yousuf Ortiz MD Status: REG CLI Study:OB Limited With Biometrics Date of Exam : 11/02/24 Exam# [id number] Ordering Dr: Sheyla Whiting DO PROCEDURE: OB [...] due date December 19, 2024 Reading [facility] CC: Dr. Yousuf Ortiz MD; Dr. Sheyla Small DO ~ Associate Professor Computer Science: Signed [facility]06-27-2025 Progress [facility] [address], [address] [place] [address] OFFICE VISIT Date of Service: 10/28/24 MR#: [id number] Acct: [id number] Name: BRIGID BELLA Rep #: [id number] : 1985 Provider: Dr. 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 Date Name GA/Weeks Outcome Route Bth Weight Infant Gen Labor Lgth Anesthesia Del Locatn Provider FOB Unknown 01/08/20 John 40 live - full term 7# 10oz M veronica 12 hours none [place] Dr. Ibeth Carlos 06/17/22 Embudo 40 live - full term 8lbs 1oz Male n one [facility] Trish Murray CNM Terrance Delivery Date: 06/17/22 [...] nip t. anatomy us ordered. works in [employer] and wants anatomy scan in [place]. 08/03/24 -?-?-?-?-?-?-?-?-?-?-?-?- 21w 6d 152 lb (+10 lb) 102/64 Negative -?-?-?-?-?-?-?-?-?-?-?-?- Negative 136 -?-?-?-?-?-?-?-?-?-?-?-?- MH-No VB. Angella garcia. Nl anatomy reviewed. Some gastric reflux/pepcid 08/31/24 -?-?-?-?-?-?-?-?-?-?-?-?- 25w 6d 156 lb 6 oz (+14 lb 6 oz) 107/71 Negative -?-?-?-?-?-?-?-?-?-?-?-?- Negative 140 -?-?-?-?-?-?-?-?-?-?-?-?- SM- no vb crampi sylvain good fm. travleing to the [place] next week 09/29/24 -?-?-?-?-?-?-?-?-?-?-?-?- 30w 0d 164 [...] of other normal , second trimester Comment: [id number], JAZMIN 12/08/24, surprise Kevin Adams, Terrance (3) [...] Signature: Date (if applicable) CC: ~ [facility]06-27-2025 Progress note Author Sheyla Polk [facility] Note Date/Time October 28, 2024 2:22 pm [facility] [address] [place] [address], [address] [place] [address] OFFICE VISIT Date of Service: 10/28/24 MR#: [id number] Acct: [id number] Name: BRIGID BELLA Rep #: [id number] : 1985 Provider: Dr. 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 Date Name GA/Weeks Outcome Route Bth Weight Infant Gen Labor Lgth Anesthesia Del Locatn Provider FOB Unknown 01/08/20 Ramey 40 live - full term 7# 10oz M veronica 12 hours none [place], [place] Dr. Ibeth Carlos 06/17/22 Embudo 40 live - full term 8lbs 1oz Male n one [facility] Trish Murray ROSA Terrance Delivery Date: 06/17/22 [...] nip t. anatomy us ordered. works in [employer] and wants anatomy scan in [place]. 08/03/24 -?-?-?-?-?-?-?-?-?-?-?-?- 21w 6d 152 lb (+10 lb) 102/64 Negative -?-?-?-?-?-?-?-?-?-?-?-?- Negative 136 -?-?-?-?-?-?-?-?-?-?-?-?- MH-No VB. Angella garcia. Nl anatomy reviewed. Some gastric reflux/pepcid 08/31/24 -?-?-?-?-?-?-?-?-?-?-?-?- 25w 6d 156 lb 6 oz (+14 lb 6 oz) 107/71 Negative -?-?-?-?-?-?-?-?-?-?-?-?- Negative 140 -?-?-?-?-?-?-?-?-?-?-?-?- SM- no vb crampi ng good fm. travleing to the [place] next week 09/29/24 -?-?-?-?-?-?-?-?-?-?-?-?- 30w 0d 164 [...] of other normal , second trimester Comment: [id number], JAZMIN 12/08/24, Kevin Schaeffer, Terrance (3) : [...] Mendoza DO> Date _ Sheyla Small [facility] Signature: Date (if applicable) CC: ~ [facility] Work Phone: 1(695) 630-168305-29-2025 Progress [facility] [address] [place] [address], [place] [address] OFFICE VISIT Date of Service: 09/29/24 MR#: [id number] Acct: [id number] Name: BRIGID BELLA Rep #: [id number] : 1985 Provider: LIMA Valverde Age/Sex: 39/F [place] [facility] [place]: Signed Intake Vital Signs 08/03/24 08:30 08/03/24 08:46 08/31/24 09:09 09/29/24 15:15 Height 5 ft 5 in 5 ft 5 in 5 ft 5 in 5 ft 5 in Weight: 164 lb 2 oz BMI 27.3 BP 107/74 Intake Visit Reasons: 30wk ob Chief Complaint: 30wk OB Algology Teacher Required: No Is patient in pain?: [...] umbilical cord Supervision of normal Surgical History Partridge teeth extracted No pertinent past surgical history [...] current occupational 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 Date Name GA/Weeks Outcome Route Bth Weight Infant Gen Labor Lgth Anesthesia Del Locatn Provider FOB Unknown 01/08/20 John 40 live - full term 7# 10oz M veronica 12 hours none [place], [place] Dr. Ibeth Carlos 06/17/22 Kevin 40 live - full term 8lbs 1oz Male n one [facility] Trish Murray CNM Terrance Delivery Date: 06/17/22 [...] nip t. anatomy us ordered. works in [employer] and wants anatomy scan in [place]. 08/03/24 -?-?-?-?-?-?-?-?-?-?-?-?- 21w 6d 152 lb (+10 lb) 102/64 Negative -?--?-?-?-?-?-?-?-?-?-?-?- Negative 136 -?-?-?-?-?-?-?-?-?-?-?-?- MH-No VB. Angella garcia. Nl anatomy reviewed. Some gastric reflux/pepcid 08/31/24 -?-?-?-?-?-?-?-?-?-?-?-?- 25w 6d 156 lb 6 oz (+14 lb 6 oz) 107/71 Negative -?-?-?-?-?-?-?-?-?-?-?-?- Negative 140 -?-?-?-?-?-?-?-?-?--?-?-?- SM- no vb crampi ng good fm. [place] 09/29/24 -?-?-?-?-?-?-?-?-?-?-?-?- 30w 0d 164 [...] Monitoring, Signs and Symptoms of Preeclampsia and [place] Education ROS Const Reports system reviewed and [...] Provider: Radha Valverde CNM Performing Location: [facility] Administered by: Hailey Stallworth on 09/29/24 15:27 Dose Route Admin Location Dispensed Lot Number Expiration Date NDC Centrifugal Drier Operator 0.5 mL IM Left Deltoid 0.5 mL [id number] 08/31/26 71328-141-84 SANOF I-PASTEUR VIS Given Date VIS Provided [...] of other normal , second trimester Comment: [id number], JAZMIN 12/08/24, surprise Kevin Adams, Terrance (3) [...] Signature: Date (if applicable) CC: ~ [facility]05-29-2025 Progress note Author Radha Valverde [facility] Note Date/Time September 29, 2024 3:42p [facility] [address], [address] [place] [address] OFFICE VISIT Date of Service: 09/29/24 MR#: [id number] Acct: [id number] Name: BRIGID BELLA Rep #: [id number] : 1985 Provider: LIMA Valverde Age/Sex: 39/F [place] [facility] [place] Status: Signed Intake Vital Signs 08/03/24 08:30 08/03/24 08:46 08/31/24 09:09 09/29/24 15:15 Height 5 ft 5 in 5 ft 5 in 5 ft 5 in 5 ft 5 in Weight: 164 lb 2 oz BMI 27.3 BP 107/74 Intake Visit Reasons: 30wk ob Chief Complaint: 30wk OB Algology Teacher Required: No Is patient in pain?: [...] umbilical cord Supervision of normal Surgical History Partridge teeth extracted No pertinent past surgical history [...] current occupational 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 Date Name GA/Weeks Outcome Route Bth Weight Infant Gen Labor Lgth Anesthesia Del Locatn Provider FOB Unknown 01/08/20 Ramey 40 live - full term 7# 10oz M veronica 12 hours none [place], [place] Dr. Ibeth Carlos 06/17/22 Embudo 40 live - full term 8lbs 1oz Male n one [facility] Trish Murray CNAbel Jenkinswn Delivery Date: 06/17/22 [...] nip t. anatomy us ordered. works in [employer] and wants anatomy scan in [place]. 08/03/24 -?-?-?-?-?-?-?-?-?-?-?-?- 21w 6d 152 lb (+10 lb) 102/64 Negative -?--?-?-?-?-?-?-?-?-?-?-?- Negative 136 -?-?-?-?-?-?-?-?-?-?-?-?- MH-No VB. Angella garcia. Nl anatomy reviewed. Some gastric reflux/pepcid 08/31/24 -?-?-?-?-?-?-?-?-?-?-?-?- 25w 6d 156 lb 6 oz (+14 lb 6 oz) 107/71 Negative -?-?-?-?-?-?-?-?-?-?-?-?- Negative 140 -?-?-?-?-?-?-?-?-?--?-?-?- SM- no vb crampi ng good fm. [place]leing [place] 09/29/24 -?-?-?-?-?-?-?-?-?-?-?-?- 30w 0d 164 [...] Performing Provider: Radha Valverde CNM Performing Location: [facility] Administered by: Hailey Stallworth on 09/29/24 15:27 Dose Route Admin Location Dispensed Lot Number Expiration Date NDC Centrifugal Drier Operator 0.5 mL IM Left Deltoid 0.5 mL [id number] 08/31/26 79914-592-81 SANOF I-PASTEUR VIS Given Date VIS Provided [...] of other normal , second trimester Comment: [id number], JAZMIN 12/08/24, Kevin Schaeffer, Terrance (3) : [...] Cosigner Signature: Date (if applicable) CC: ~ [facility] [facility] Work Phone: 1(808) 738-879404-02-2025 Evaluation note* Diagnosis Onset Date Resolution Status [...] normal acut e October 28, 2024 1:51pm [facility] Work Phone: 1(530) 955-913304-02-2025 Evaluation note* Diagnosis Onset Date Resolution Status [...] 11, 2024 3:34pm [facility] Work Phone: 1(659) 543-383604-02-2025 Evaluation note* Diagnosis Onset Date Resolution Status [...] 16, 2024 1:47pm [facility] Work Phone: 1(117) 552-624104-02-2025 Evaluation note* Diagnosis Onset Date Resolution Status [...] 24, 2024 3:54pm [facility] Work Phone: 1(456) 407-608104-02-2025 Evaluation note* Diagnosis Onset Date Resolution Status [...] 01, 2024 3:09pm [facility] Work Phone: 1([phone]) 671-359503-04-2025 Evaluation note* Diagnosis Onset Date Resolution Status [...] acut e October 12, 2024 8:[address] [facility] Work Phone: 1([phone]) 922-812303-04-2025 Evaluation note* Diagnosis Onset Date Resolution Status [...] 28, 2024 1:51pm [facility] Work Phone: [phone]) 474-538401-31-2025 Evaluation note* Diagnosis Onset Date Resolution Status [...] normal acut e September 29, 2024 3:12pm [facility] Work Phone: 1(897) 125-662004-21-2024 NoteHNO ID: [id number] Author: TITA HOUSER APRN.DIRECTOR [employer] Service: ? Author Type: Nurse Practitioner Type: [...] history is provided by the patient. No hourly sign language interpreter was used. Eye Problem This is a [...] rhonchi or rales. Chest: (more content not included)...[facility]04-21-2024 History of Present illness Narrative* Tita Houser APRN.DIRECTOR [employer]OP[employer] - 08/23/2023 10:09 AM EDT This note was created using [employer]. Subjective Brigid Bella is a 38 year [...] history is provided by the patient. No hourly sign language interpreter was used. Eye Problem This is a [...] sooner if worsening of symptoms Tita Houser APRN.DIRECTOR PE[employer] documented in [facility]Pe[facility]03-04-2024 Miscellaneous Notes* Telephone Encounter - Juan [...] rx to requested pharmacy. documented in this encounterPeoples Hospital11-17-2023 NoteHNO ID: [id number] Author: Jairo Romero MD Service: ? Author [...] last [address] 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 Melasma on forehead may be slightly hardwood floor layer. Head: Normocephalic, no masses, lesions, tenderness or [...] fL 89.7 MCH 2 (more content not included)...[facility]08-25-2023 NoteHNO ID: [id number] Author: Jairo Romero MD Service: ? Author [...] which included preparing to see the patient, [id number] patient care, completing clinical documentation, obtaining and/or reviewing separately obtained history, performing a medically appropriate examination, counseling and educating the patient/family/caregiver, and ordering medications, tests, or procedures. Jairo Romero [facility]08-25-2023 History of Present illness Narrative* Jairo [...] which included preparing to see the patient, [id number] patient care, completing clinical documentation, obtaining and/or reviewing separately obtained history, performing a medically appropriate examination, counseling and educating the pat ient/family/caregiver, and ordering medications, tests, or procedures. Jairo Romero MD documented in this encounterPeoples Hospital02-15-2023 Progress note Author Trish Murray [facility] June 18, 2022 10:11am Note Date/Time June 18, 2022 10:11am [facility] Medical Records Department [address] [place] [address] Progress Note - OBGYN 06/18/22 1009 MR#: [id number] Acct: [id number] Name: BRIGID BELLA Rep #:[id number] : 1985 37 From: Trish Murray CNM PCP: Care Physician,No Primary Status :ADM IN Location: VB272-9 Subjective Subjective Patient doing well without complaints. [...] Cosigner Signature (if applicable): CC: ~ Signed [facility] Work Phone: 1(384) 403-672602-14-2023 Discharge summary Author Trish Murray [facility] June 17, 2022 1:53am Note Date/Time June 17, 2022 1:53am [facility] Medical Records Department [address] [place] [address] [place] [address] Instructions for Home/Discharge Instructions 06/17/22 0152 MR#: [id number] Acct: [id number] Name: BRIGID BELLA Rep #:[id number] : [...] CC: No Primary Care Physician ~ Signed [facility] Work Phone: [phone]) [phone] History and physical note Author Trish Murray [facility] June 17, 2022 1:47am Note Date/Time June 17, 2022 1:47am [facility] Medical Records Department [address] [place] [address] [place] [address] H&P 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 06/17/22 0138 MR#: [id number] Acct: [id number] Name: BRIGID BELLA Rep #:[id number] : 1985 37 From: Trish Murray CNM PCP: Nick Physician,No Primary Status :ADM IN [facility] - [facility] General Date of Admission: [...] current occupational status: employed 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 Ibeth Carlos Visit Details Expected [...] Baby A Baseline: 125, loss of pickle solution maker Variability:: Moderate Accelerations:: 15 x 15 Decelerations:: [...] 2 vessel cord I have reviewed the [facility] and made any clinically relevant updates. Dr. Mcconnell updated on POC, admission and exam. co-management for 2 vessel cord 06/17/22 0147 <Electronically signed by Trish Murray CNM> Cosigner Signature (if applicable): CC: LIMA Murray; No Primary Care Physician~ Signed [facility] Work Phone: 1([phone]) 957-997102-14-2023 Procedure [facility] 12-24-2021 Instructions* Patient Instructions* Tita Houser APRN.DIRECTOR [employer] - 12/24/2021 12:09 PM EDT Headache, unspecified [...] No follow-ups on file. documented in this encounterPeoples Hospital08-23-2022 History of Present illness Narrative* Tita Houser APRN.CNP - 12/24/2021 12:02 PM EDT This note was created using [employer]. Subjective Brigid Bella is a 36 year [...] history is provided by the patient. No hourly sign language interpreter was used. Headache This is a new [...] WITH FLUA+B, ROUTINE-pending Use Tylenol. Tita Houser APRN.DIRECTOR [employer]FT documented in this encounterPeoples Hospital08-23-2021 History of Present illness Narrative* Kathy [...] months. Side effects including teratogenicty dangers of termite helper use explained;. Pertinent PE: hyperpigmented patches [...] left cheek Return in 1 year. Kathy Rviera MD 12/24/2020 documented in this [id number] Instructions* Patient Instructions* Rach Lopez MA - 12/24/2020 9:33 AM EDT Effective 05/18/2019, all [employer] users will be automatically enrolled in paperless billing in an effort to save our environment by eliminating waste & reduce healthcare costs. A monthly notification will be sent to your e-mail address on file indicating you have a new billing statement available in [employer]. If you prefer to receive paper statements, log into [employer] at [employer] to update your e-mail, text and mail preferences (opting out of paperless billing). Please direct further questions to [employer] at [phone] or [email or web address]. documented in this encounterTexasHealthEvaluation note* Diagnosis Melasma- Primary Other dyschromia documented in this encounter [facility]* Diagnosis Melasma- Primary Other dyschromia Dermal nevus of left cheek Osborne angioma documented in this encounter [facility]* Diagnosis Onset Date Resolution Status acute Supervision of normal [facility] Work Phone: Evaluation note* Diagnosis Headache, unspecified headache type- Primary Viral illness Unspecified viral infection, in conditions classified elsewhere and of unspecified site documented in this encounter [facility] HospitalEvaluation note* Diagnosis Onset Date Resolution Status acute Supervision of normal acute acute Supervision of normal acute Echogenic bowel of fetus acu te acute Supervision of normal [facility] Work Phone: Evaluation note* Diagnosis Onset [...] affecting a cute Anemia affecting a cute [facility] Work Phone: Evaluation note* Diagnosis Melasma- Primary Other dyschromia Encounter to establish care Other reasons for seeking consultation Depression screening Screening for depression documented in this encounter [facility]* Diagnosis Conjunctivitis of right eye, unspecified conjunctivitis type- Primary URI, acute Acute upper respiratory infections of unspecified site documented in this encounter [facility] (narrative)No reason for referral information availableBlSt. Vincent [facility] Services Work Phone: Summary Purpose Family [...] FoundDocuments on File Type Date Recorded Patient Scalper Operator Expl anation Advance Directives and Living Will Advance Directive Response Recorded Date/ Time Name of Medical Power of Dynamite Reclaimer Terrance Shayne June 17, 2022 1:39am Living Will No June 17 1:39am Power of Dynamite Reclaimer Yes June 17, 2022 1:39am Hospital Course Note CLINICAL SUMMARY Please take this summary document to your follow up appointments. [facility] 01/10/20 11:23 [address] [place]. [address] PATIENT INFORMATION Name: BRIGID BELLA [address]: [address] [place] [id number] Age: 34 Years Phone: [phone] : 1985 12:00 MRN: ([id number] Sex: Female Race: White Ethnicity: Not Hispan/Lat Admitted From: Clinic or [facility] Medical Service: Obstetric Nurse Unit/Bed: (CO) DAVINA 1I29-59 Admit Date: 01/08/2020 13:46 PCP: Physician, PCP Unknown PHYSICIANS INVOLVED WITH CARE Attending Physicians: Ibeth Gómez MD, Shantel Jacobs - Gynecology, Obstetrics Admitting Physician: Ibeth Gómez MD, Shantel Jacobs - Gynecology, Obstetrics Primary Care Physician:Physician, PCP Unknown,Family Practice,,, - Consults: Praneeth MONAE, Zahida - Pediatrics Problems Active (more content not included)... Note Patient: BRIGID BELLA RN: ([facility])-[id number] Age: 34 years Sex: Female : 1985 [...] included)... Assessments Note Patient: BRIGID BELLA RN: ([facility])-[id number] Age: 34 years Sex: Female : 1985 [...] Best Interest Dermatology Diagnoses Sabiha Lugo MD [address] [place] [id number] NicoleKathy MD [address] [place] [id number] Chief Complaint and Reason for Visit Chief [...] content) DATE CREATED AUTHOR 01/10/2020 [facility] DATE CREATED AUTHOR AUTHOR'S ORGANIZ ATION 10/27/2020 [facility] DATE CREATED AUTHOR AUTHOR'S ORGANIZ ATION 12/24/2020 [facility] DATE CREATED AUTHOR AUTHOR'S ORGANIZ ATION 08/23/2023 [facility] DATE CREATED AUTHOR AUTHOR'S ORGANIZ ATION 07/29/2024 [facility] DATE CREATED AUTHOR AUTHOR'S ORGANIZ ATION 12/04/2024 [facility] Reason for Visit (unrecogniz ed section and content) Reason Comments Skin Lesion 1. Left cheek raised unchanged #2) abdomen red years unchanged Skin Discoloration Forehead, >1 year, s tarted during , changing in color, untreated. Specialty Diagnoses / Procedures Referred By Misti hsu Referred To Contact Dermatology Diagnoses Melasma Sabiha Cooper MD [address] [place] [address] Kathy Rivera MD [address] [place] [id number] Referral ID Status Reason Start Date Expiration Date V isits Requested Visits Authorized [id number] Closed Specialty Services Required/Magalis ent's Best Interest 10/26/2020 10/26/2021 1 1 Reason Comments Headache nasal drip, chills, cough, x 5 days, increased x 3 days Reason Comments Establish Care Wellness visit paper work Reason Comments Results Reason Comments Eye Problem R eye redness swelli ng crust this am Care Teams (unrecognized sec tion and content) Juvenile Detention Officer Relationship Specialty Start Date End Date Sabiha Cooper MD [address] [place] [address] PCP - General Internal Medicine 11/23/20 Juvenile Detention Officer Relationship Specialty Start Date End Date Pcp, [...] Provider, Refer ring Provider Active Micaela Peterson LABORER YARD, LABORER YARD-C Attending Provider Active Team Status: Inactive Member [...] CNM Admit Provider, Attending Provid er Active Juvenile Detention Officer Relationship Specialty Start Date End Date Jairo Romero MD [address] [place], [place] [address] PCP - General Family Medicine 12/26/22 Juvenile Detention Officer Relationship Specialty Start Date End Date Jairo Romero MD [address] [place], [place] [address] PCP - General Family Medicine 12/26/22 Juvenile Detention Officer Relationship Specialty Start Date End Date Jairo Romero MD [address] [place], [place] [id number] PCP - General Family Medicine 12/26/22 Team [...] 2024 End: August 03, 2024 Micaela Peterson LABORER YARD, LABORER YARD-C Attending Provider Active Start: August 03, 2024 [...] 2024 End: August 03, 2024 Micaela Peterson LABORER YARD, LABORER YARD-C Attending Provider Active Start: August 03, 2024 [...] End: August 03, 2024 Micaela Peterson NP, LABORER YARD-C Attending Provider Active Start: August 03, 2024 [...] Status: Inactive Member Role/Relationship Status Dates Dr. Yousfu Ortiz MD Primary Care Provider Active Start: [...] or prosecute any alcohol or drug abuse patient.Peoples HospitalIn the event this information is protected by the Federal Confidentiality of Alcohol and Drug Abuse Patient Records regulations: The Federal rules restrict any use of the information to criminally investigate or prosecute any alcohol or drug abuse patient.Peoples HospitalIn the event this information is protected [...] or prosecute any alcohol or drug abuse patient.[facility] FOR RECORDS PERTAINING TO PATIENTS WHO [...] BE BASED ON THE PRIMARY CLINICAL RECORDS. [facility]. provides no warranty or guarantee of the accuracy or completeness of information in this document.
--- NOTE | 2024-12-05 05:51 | HP.PCM.OB_ITS ---
HPI - General General Date of Admission: 12/05/24 Chief Complaint: Regular, frequent u/c's. HPI Narrative BRIGID VELASQUEZ, is a 39 F who presents in active labor. Reports labor started ~ 0100 this am, Membranes intact at time of admission. Maternal Data Information JAZMIN Calculator Estimated Delivery Date Method Current WG Current Estimate 12/08/24 LMP (Certain) 39w 4d Gestational age: 39 wks 4 days PFSH PFSH Medical History Spontaneous onset of labor (spontaneous vaginal delivery) Two vessel umbilical cord Supervision of normal Home Medications ?Medication ?Instructions ?Recorded ?Last Taken ?Type multivitamin no.47-iron fum 27 cap PO 05/20/24 Unknown History mg-folate no.1 1 mg-dha 300 mg capsule (PNV-DHA) Allergy/AdvReac Type Severity Reaction Status Date / Time No Known Allergies Allergy Verified 12/01/24 15:11 Family History Mother Cancer, Onset Age: 68 gallbladder Diabetes pre Hypertension High cholesterol Father FH: ALS (amyotrophic lateral sclerosis), Onset Age: 67 Hypertension High cholesterol Grandmother Celiac disease Maternal Colon cancer Maternal Grandmother Dementia Paternal Grandfather High cholesterol Paternal Hypertension Paternal Heart disease Myocardial infarction Maternal Surgical History [place] teeth extracted No pertinent past surgical history Social History adopted: No household members: spouse and children housing: house number of children: 2 current occupational status: employed 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 current occupational exposures/hazards: No pets and animals: Yes (2) pets and animals: dog(s) history of recent travel: No ([facility] last week, [place] October 23) sexually active: Yes Smoking Status: Never smoker second hand exposure: No alcohol intake: current alcohol intake frequency: a few times a month details: social 1-2 per month- Not while substance use type: does not use well-balanced diet: daily or most days caffeine: Yes Type: coffee Number of servings: 1 eating out: 1-3 times/week during the past year weight has: remained stable what type of physical activity do you participate in: walking and bicycling frequency: 3-4 times per week duration: 15-30 minutes/day lexx/taoist: Taoist seatbelt use: always do you feel safe at home: Yes 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 Date Name GA/Weeks Outcome Route Bth Weight Gen Labor Lgth Anesthesia Del Locatn Provider FOB Unknown 01/08/20 John 40 live - full term 7# 10oz M veronica 12 hours none [place], [place] Dr. Ibeth Carlos 06/17/22 Kevin 40 live - full term 8lbs 1oz Male n one [facility] Trish Murray CNM Terrance Delivery Date: 06/17/22 Last Updated by: Diandra Truong see problem list for complications Visit Details Expected Delivery Route/Plan Labor Preferences- CB/BF classes: declines labor support person: [] labor intervention preferences: unmedicated pain management options preferred: minimal interventions cut cord/dad catch: [] : [] PP control planned: [] discussed possible routes of delivery and associated risks: [] special requests: [] Plans Covid status: [] Flu vaccine: [] Tdap vaccine: [] Rhogam: [] LARC form signed: [] Problem list reviewed and updated with the most current plan of care details and appropriate orders placed. Relevant counseling for the gestational age provided. Continue routine care and follow up unless otherwise noted in visit notes/problem list details OB Flowsheet Initial Weight: 142 lb Date -?-?-?-?-?-?-?-?-?-?-?-?- EGA Weight BP Urine Prot -?-?-?-?-?-?-?-?-?-?-?-?- Glucose FHR FuHt Pres Dilation -?-?-?-?-?-?-?-?-?-?-?-?- Effaced St Visit Note 06/03/24 -?-?-?-?-?-?-?-?-?-?-?-?- 13w 1d 142 lb (+0 oz) 113/76 -?-?-?-?-?-?-?-?-?-?-?-?- 159 -?-?-?-?-?-?-?-?-?-?-?-?- LC- measurements con with LMP. 13wks. desires nipt. no further bleeding. 07/05/24 -?-?-?-?-?-?-?-?-?-?-?-?- 17w 5d 146 lb 4 oz (+4 lb 4 oz) 101/68 Negative -?-?-?-?-?-?-?-?-?-?-?-?- Negative 147 -?-?-?-?-?-?-?-?-?-?-?-?- JV- low risk nip t. anatomy us ordered. works in [employer] and wants anatomy scan in [place]. 08/03/24 -?-?-?-?-?-?-?-?-?-?-?-?- 21w 6d 152 lb (+10 lb) 102/64 Negative -?-?-?-?-?-?-?-?-?-?-?-?- Negative 136 -?-?-?-?-?-?-?-?-?-?-?-?- MH-No VB. Angella garcia. Nl anatomy reviewed. Some gastric reflux/pepcid 08/31/24 -?-?-?-?-?-?-?-?-?-?-?-?- 25w 6d 156 lb 6 oz (+14 lb 6 oz) 107/71 Negative -?-?-?-?-?-?-?-?-?-?-?-?- Negative 140 -?-?-?-?-?-?-?-?-?-?-?-?- SM- no vb jamari narayan good fm. [place] 09/29/24 -?-?-?-?-?-?-?-?-?-?-?-?- 30w 0d 164 lb 2 oz (+22 lb 2 oz) 107/74 Negative -?--?-?-?-?-?-?-?-?-?-?-?- Negative 130 29 -?-?-?-?-?-?-?-?-?-?-?-?- KW- no vb/lof/ct x. good fm tdap and larc today. no concerns 10/12/24 -?-?-?-?-?-?-?-?-?-?-?--?- 31w 6d 163 lb 4 oz (+21 lb 4 oz) 103/62 Negative -?-?-?-?-?-?-?-?-?-?-?-?- Negative 143 31.5 -?-?-?-?-?-?-?-?-?-?-?-?- JV- no lof, vagi nal bleeding, or dec fm. no complaints today. discussed RSV vaccine between 32-36 weeks. THe vaccine when given in lasts for baby's first 8 months of life. if baby gets the RSV vaccine after , it can be given at 1 week of age and lasts for 5-6 months. 10/28/24 -?-?-?-?-?-?-?-?-?-?-?-?- 34w 1d 165 lb 2 oz (+23 lb 2 oz) 111/69 Negative -?-?-?-?-?-?-?-?-?-?-?-?- Negative 140 34 Cephalic -?-?-?-?-?-?-?-?-?-?-?-?- JV- patient rece ived the RSV vaccine This week. 10/24/24. no lof, vaginal bleeding, or dec fm. JV- patient received the RSV vaccine This week. 10/24/24. no lof, vaginal bleeding, or dec fm. growth scan 36 weeks 11/11/24 -?-?-?-?-?-?-?-?-?-?-?-?- 36w 1d 165 lb 2 oz (+23 lb 2 oz) 120/78 Negative -?-?-?-?-?-?-?-?-?-?-?-?- Negative 130 35 Cephalic -?-?-?-?-?-?-?-?-?-?-?-?- KW- no vb/lof/ct x. good fm. GBS today. declines vaginal exam today. 11/16/24 -?-?-?-?-?-?-?-?-?-?-?-?- 36w 6d 167 lb (+25 lb) 113/73 Negative -?-?-?-?-?-?-?-?-?-?-?-?- Negative 140 36 Cephalic -?-?-?-?-?-?-?-?-?-?-?-?- SM- no vb lof go od fm no regular ctx discussed 11 percentile and 8 cm buster, recommend repeat buster weekly. 11/24/24 -?-?-?-?-?-?-?-?-?-?-?-?- 38w 0d 165 lb 8 oz (+23 lb 8 oz) 123/84 Negative -?-?-?-?-?-?-?-?-?-?-?-?- Negative 120 36 Cephalic -?-?-?-?-?-?-?-?-?-?-?-?- KW- no vb/lof/ct x. good fm. BUSTER is 9 this week. declines vaginal exam. 12/01/24 -?-?-?-?-?-?-?-?-?-?-?-?- 39w 0d 164 lb 8 oz (+22 lb 8 oz) 108/69 Negative -?-?-?-?-?-?-?-?-?-?-?-?- Negative 110 Cephalic -?-?-?-?-?-?-?-?-?-?-?-?- KW- no vb/lof/ct x. good fm. BUSTER check after appt. KW- no vb/lof/ctx. good fm. BUSTER check after appt. Declines vaginal exam today. discussed IOL by 40 weeks and indications. She does not want to set up induction today but willing to do NST today and another early next week. will consider membrane sweep and setting up IOL then. KW- no vb/lof/ctx. good fm. BUSTER and BPP after appt. Declines vaginal exam today. discussed IOL by 40 weeks and indications. She does not want to set up induction today but willing to do BPP today and NST early next week. will consider membrane sweep and setting up IOL then. Discussed with SM and planning twice weekly NST until 12/12. if no active labor will set up induction for between 40-41 weeks NST FHR Rate Baby A Baseline: 120 Variability:: Moderate Accelerations:: 15 x 15 Decelerations:: Variable FHR Category:: Category II Uterine Activity:: u/c's every 1 to 2 1/2 mins lasting 40 to 80 seconds. Palpates strong. ROS Constitutional Constitutional: Reports systems reviewed and no addt'l complaints, except as documented Eyes Eyes: Reports systems reviewed and no addt'l complaints, except as documented ENT HEENT: Reports systems reviewed and no addt'l complaints, except as documented Cardiovascular Cardiovascular: Reports systems reviewed and no addt'l complaints, except as documented Respiratory/Chest Respiratory/Chest: Reports systems reviewed and no addt'l complaints, except as documented Gastrointestinal Gastrointestinal: Reports systems reviewed and no addt'l complaints, except as documented Genitourinary Genitourinary: Reports systems reviewed and no addt'l complaints, except as documented Musculoskeletal Musculoskeletal: Reports systems reviewed and no addt'l complaints, except as documented Integumentary Integumentary: Reports systems reviewed and no addt'l complaints, except as documented Neurologic Neurologic: Reports systems reviewed and no addt'l complaints, except as documented Psychiatric Psychiatric: Reports systems reviewed and no addt'l complaints, except as documented Allergic/Immunologic Allergic/Immunologic: Reports systems reviewed and no addt'l complaints, except as documented Vital Signs Vital Signs Vital Signs: 12/05/24 05:32 12/05/24 05:32 Pulse Rate 62 Blood Pressure 113/69 BP Systolic 113 BP Diastolic 69 Weight Weight: 166 lb Body Mass Index (BMI) 27.6 Physical Exam Const alert, oriented x3 and no apparent distress General Appearance: cooperative and comfortable Chest inspection of chest normal Resp normal respiratory effort, no retractions and no use of accessory muscles Resp Narrative: Respirations eased & unlabored. GI soft to palpation, non-tender and non-distended GI Narrative: Gravid Manual OB Exam: presentation, dilated 8-9cm, effaced 100% and station -1 Neuro moves all extremities Psych mental status grossly normal Labs Labs Labs: Blood Type AB POSITIVE Antibody Screen NEGATIVE Hct 34.9 % (37-47) L Hgb 11.9 g/dL (12.0-15.0) L Pap Smear Negative Obstetrics Ultrasound Syphilis Total Ab Nonreactive (Nonreactive) Rubella IgG Antibody Reactive (Nonreactive) Hep Bs Antigen Non-Reactive (Nonreactive) Hepatitis C Antibody Non-Reactive (Nonreactive) Chlamydia DNA (SINA) Negative (Negative) N.gonorrhoeae DNA (SINA) Negative (Negative) HIV 1&2 Antibody Nonreactive (Nonreactive) Glucose 1 Hr 50 gm 84 mg/dL (70-140) Assessment & Plan (1) BUSTER (amniotic fluid index) borderline low: COMMENT: repeat weekkly while under 10 reviewed fm precautions (2) AMA (advanced maternal age) multigravida 35+: COMMENT: refusing IOL at 39-40 weeks will do twice weekly NSTS and deliver between 40-41 weeks (3) Supervision of normal : QUALIFIERS: Normal : other normal Trimester: second trimester Qualified Code(s): Z34.82 - Encounter for supervision of other normal , second trimester COMMENT: [id number], JAZMIN 12/08/24, surprise PC Kevin Lopez, Terrance (4) FH: ALS (amyotrophic lateral sclerosis): COMMENT: Father- PLAN: Plan Patient presents in active labor, plan expectant management for , desires natural without intervention. Preferences reviewed w/pt & spouse. Pain management: Hypnobirthing. GBS Negative Management of any complications: Borderline Oligohydramnios. I have reviewed the [facility] and made any clinically relevant updates.
[2024-12-05 05:59] LABS: Hematocrit 34.9 % (37-47); Hemoglobin 11.9 g/dL (12.0-15.0); Immature Granulocytes Count 0.060 X10^3/uL (0.0-0.0); Mean Corp Hgb Conc 34.1 g/dL (32-36); Mean Corpuscular Volume 88.6 fL (81-99); Mean Platelet Vol. 12.7 fl (6.2-12.0); NRBC Flagged by Analyzer 0 % (0-5); Platelet Count 201 K/mm3 (150-450); RBC Distribution Width CV 12.7 % (11.6-14.6); RBC Distribution Width SD 41.1 fl (35.1-43.9); Red Blood Count 3.94 M/mm3 (4.2-5.4); White Blood Count 12.0 K/mm3 (4.4-11.0)
[2024-12-05 06:33] LABS: Syphilis Antibodies Nonreactive (Nonreactive)
--- NOTE | 2024-12-05 06:39 | OB.VAGDELI_ITS ---
Assessment & Plan (1) BUSTER (amniotic fluid index) borderline low: COMMENT: repeat weekkly while under 10 reviewed fm precautions (2) AMA (advanced maternal age) multigravida 35+: COMMENT: refusing IOL at 39-40 weeks will do twice weekly NSTS and deliver between 40-41 weeks (3) Supervision of normal : QUALIFIERS: Normal : other normal Trimester: second trimester Qualified Code(s): Z34.82 - Encounter for supervision of other normal , second trimester COMMENT: [id number], JAZMIN 12/08/24, surprise PC Kevin Lopez, Terrance PLAN: KM. , Male , shallow 1st degree laceration. No complications. Baby's name pending at time of report. PLAN: Plan Patient began pushing and delivered the head in the OA presentation. The head was delivered atraumatically. The anterior and posterior shoulders delivered without complication followed by the rest of the and the was placed on the maternal abdomen. Delayed cord clamping was employed for approximately 10 minutes per parents request. Cord was clamped and cut and gentle traction was applied to the cord and the placenta delivered spontaneously immediately following it was noted to be intact with three-vessel cord. The perineum and vagina were inspected and [noted to have no laceration]. EBL was 200cc. Patient and infant tolerated delivery well. Maternal Data Information JAZMIN Calculator Estimated Delivery Date Method Current WG Current Estimate 12/08/24 LMP (Certain) 39w 4d Gestational age: 39 wks 4 days Vaginal Delivery Maternal Presentation Maternal Presentation: Active Labor and Spontaneous Rupture of Membranes Vaginal Delivery Information Procedure Performed: Spontaneous Vaginal Delivery Surgeon/Practitioner: Sabiha Suarez Type of anesthesia: None Findings Presentation: Vertex and SEBASTIÁN Amniotic Membrane Rupture Type: Spontaneous Amniotic Fluid Description: Clear Placental Delivery Description: Spontaneous (Mireles w/3 vessel cord. ) Placenta Disposition: [facility] Specimen collected: No Cord Vessel Description: 3 Vessels Cord Entanglement: None Infant A Gender: Male (1 minute): 9 (5 minute): 9 Delayed Cord Clamping: Yes Post Vaginal Deli Medications given after delivery: Other (Pt declined all medications post delivery.) Episiotomy Description: None Laceration: Midline and 1st degree (small, well approximated, not bleeding. No repair needed. ) Complication Complications: No Multi Select Codes Urinary/Genital Urinary/Genital CPT Codes: 02703 Vaginal Delivery [facility]
--- NOTE | 2024-12-05 06:49 | PCM.DC ---
Discharge Instructions DC O2, CPAP, BIPAP needs Home O2 Discharge instructions: No Dressing / Incision Discharge Activity: Return to Normal Activity (Rest!!! Then slowly increase your activity. ) May resume sexual activity in: 4-6 weeks (6 weeks.) Dressing / Incision Call your doctor if you observe: Fever of 101 or Higher, Inability to have a bowel movement, Using more than 1 pad per hour, Shortness of breath, Fainting spells, Chest pain, Calf discomfort and Uncontrolled pain Cleanse incision/area with: - (Use valeria-bottle on perineum after each void & stool until bleeding has stopped. ) Follow Up Care Please Follow Up With: [facility] [place] [facility] When: 6 weeks Test Results: Test results from this visit will be discussed in further detail at your follow-up appointment, if applicable. Discharge Plan Admission Admit Date/Time: 12/05/24 05:25 Attending Provider: Sabiha Suarez Primary Care Provider: Mary Ortiz Discharge Orders/Prescriptions Prescriptions: No Action PNV-DHA 27 mg iron-1 mg -300 mg capsule PO Referrals / Follow Up: Mary Ortiz MD [Primary Care Provider] -
[2024-12-05] MEDS: Benzocaine/Lanolin/Aloe Vera 85 GM Spray 1 SPRAY TOPICAL (13:14)
[2024-12-06 03:35] VITALS: BP 100/67; PULSE 66; RESP 19; TEMP 36.4; O2SAT 97
--- NOTE | 2024-12-06 07:57 | PCM.PN.OB ---
Subjective Subjective Patient doing well without complaints. Tolerating PO. Ambulating and voiding without difficulty. Feeding well. Denies chest pain, shortness of breath, calf pain/swelling, fevers, chills, lightheadedness. Objective Data Objective Data Vital Signs: Vital Signs Temp Pulse Resp BP Pulse Ox O2 Del Method 97.6 F L 66 19 H 100/67 97 Room Air 12/06/24 03:35 12/06/24 03:35 12/06/24 03:35 12/06/24 03:35 12/06/24 03:35 12/06/24 03:35 Oxygen Delivery Method Room Air Weight: 166 lb Body Mass Index (BMI) 27.6 Intake & Output: Intake and Output for Last 24 Hours 12/04/24 12/05/24 12/06/24 23:59 23:59 23:59 Output Total 200 / 200 Balance -200 / -200 Lab / Micro Data 12/05/24 05:40 Physical Exam Const alert and oriented x3 HEENT normocephalic Eyes PERRL Neck full ROM Resp normal respiratory effort GI soft to palpation GI Narrative: FF below U Assessment & Plan (1) Spontaneous vaginal delivery: COMMENT: 12/05/24 boy KM PLAN: Plan s/p PPD # 1 1. routine post delivery care 2. breast feeding- support given 3. rh positive 4. rubella immune
[2024-12-06 08:55] VITALS: BP 119/74; PULSE 75; RESP 16; TEMP 36.6; O2SAT 98
[2024-12-06 15:29] VITALS: BP 110/77; PULSE 87; RESP 14; TEMP 36.8; O2SAT 99
== END 2024-12-06 15:40 | disposition home or self-care (01) | DRG 807 ==
LOC: WPOUT 05:28 → WP 05:33
PROVIDERS: Admitting Provider Midwife; PCP Internal Medicine; Referring Provider Midwife; Visit Provider Midwife
DX: O41.03X0 Oligohydramnios, third trimester, not applicable or unspecified (principal); Z37.0 Single live birth; O70.0 First degree perineal laceration during delivery; Z3A.39 39 weeks gestation of pregnancy
CPT/HCPCS: 59025; 59050; 85025; 86780; 86850; 86900; 86901; 99221; G0378

== ENCOUNTER → 2024-12-15 | Outpatient (CLI) | payer OTHER, SELFPAY ==
--- NOTE | 2024-12-15 16:34 | US_ITS ---
PROCEDURE: PELVIC (NON ) 12/15/2024 REASON FOR EXAM: BLEEDING. Rule out retained products. TECHNIQUE: PELVIC (NON ). Transabdominal grayscale, color and spectral Doppler pelvic ultrasound. COMPARISON: None. FINDINGS: ENDOMETRIUM: The endometrial echo complex measures 13.5 mm. Moderate amount of fluid with internal echoes within the endometrial cavity. No abnormal endometrial color Doppler flow. UTERUS: uterus measuring 10.7 x 8.5 x 7.0 cm. No fibroid detected. CERVIX: Normal size and contour. RIGHT OVARY: Normal size and appearance measuring 3.1 x 1.9 x 1.2 cm. Normal follicles. Normal blood flow. No adnexal mass. LEFT OVARY: Not visualized. FREE FLUID: No free fluid. US/Pelvic (Non ) IMPRESSION: Nonvascular complex endometrial cavity fluid, likely blood products. Retained products of conception not entirely excluded. Reading Location: [id number]
== END | disposition home or self-care (01) ==
LOC: US 16:31
PROVIDERS: PCP Internal Medicine; Referring Provider Obstetrics & Gynecology; Visit Provider Obstetrics & Gynecology
DX: O72.1 Other immediate postpartum hemorrhage (principal)
CPT/HCPCS: 76856

== ENCOUNTER → 2025-02-17 | Outpatient (CLI) | payer OTHER, SELFPAY ==
[2025-02-17 10:13] LABS: Cholesterol 322 mg/dL (<=200); Free T3 2.8 pg/mL (2.18-3.98); Low Density Lipoprotein Calc. 233 mg/dL; Triglycerides 56 mg/dL; Very Low Density Lipoprotein 11 mg/dL (5-40); cholesterol:hdl ratio screen 4.16
== END | disposition home or self-care (01) ==
LOC: LAB 09:07
PROVIDERS: PCP Internal Medicine; Referring Provider Nurse Practitioner Family; Visit Provider Nurse Practitioner Family
DX: E04.9 Nontoxic goiter, unspecified (principal); E78.5 Hyperlipidemia, unspecified
CPT/HCPCS: 36415; 80061; 84439; 84443; 84481